=== PATIENT | female | born 1975 | race Two or more races ===

== ENCOUNTER 2022-04-25 19:46 | Emergency (ER) | payer MEDICAID, SELFPAY ==
[2022-04-25 19:48] VITALS: BP 125/81; PULSE 98; RESP 20; TEMP 36.8; O2SAT 99; BMI 30.2
--- NOTE | 2022-04-25 19:51 | ED_ITS ---
HPI - Allergic Reaction General Chief complaint: Allergic Reaction <Kandace Whelan MD - Last Filed: 04/25/22 19:53> Stated complaint: Allergic reaction, used EpiPen <Kandace Whelan MD - Last Filed: 04/25/22 19:53> Time Seen by Provider: 04/25/22 20:29 <Kandace Whelan MD - Last Filed: 04/25/22 19:53> Source: patient <Crispin Christensen MD - Last Filed: 04/26/22 00:38> Mode of arrival: ambulatory <Crispin Christensen MD - Last Filed: 04/26/22 00:38> Limitations: no limitations <Crispin Christensen MD - Last Filed: 04/26/22 00:38> History of Present Illness HPI narrative: Patient has history of chronic spontaneous urticaria on my the Xolair injections. Patient more from [place] received her last injection in 01/29 and unable to get injection in last 2 months come without a clear rash for last few days called her allergic specialist was started on prednisone feels short of breath earlier felt throat swelling use her EpiPen. When patient arrived patient was speaking full sentences no significant stridor or shortness of breath noticed no significant hives notice in that readmission received steroids, Benadryl and Pepcid <Crispin Christensen MD - Last Filed: 04/26/22 00:38> Related Data Allergies/adverse reactions: Allergies Allergy/AdvReac Type Severity Reaction Status Date / Time penicillin V Allergy Unknown Hives Verified 04/25/22 19:51 Penicillins [PENICILLINS] Allergy Unknown HIVES Verified 04/25/22 19:51 <Kandace Whelan MD - Last Filed: 04/25/22 19:53> Review of Systems Review of Systems: Yes all other systems are reviewed and are negative <Crispin Christensen MD - Last Filed: 04/26/22 00:38> FOR[facility]LY [facility] Past Medical History Medical History: Medical History (Updated 04/26/22 @ 00:01 by Danielle Powell) Chronic urticaria <Kandace Whelan MD - Last Filed: 04/25/22 19:53> Social History Social History: Social History Alcohol intake: never Smoked in Last 30 Days: Yes Use of substances other than those prescribed or required for medical reasons: Yes Substance Use Type: Marijuana Substance Use Frequency: Daily Advance Directives: No Patient : No <Kandace Whelan MD - Last Filed: 04/25/22 19:53> Physical Exam ED Vital Signs: Vital Signs - 24 hr 04/25/22 19:48 04/25/22 19:59 04/25/22 20:04 Temperature 98.2 F 97.9 F 97.9 F Pulse Rate 98 80 75 Respiratory Rate 20 34 H 19 Blood Pressure 125/81 123/76 132/76 Pulse Oximetry 99 100 99 Oxygen Delivery Method Room Air Room Air Room Air 04/25/22 20:26 Temperature Pulse Rate 88 Respiratory Rate 16 Blood Pressure Pulse Oximetry Oxygen Delivery Method BMI result Body Mass Index 30.2 <Kandace Whelan MD - Last Filed: 04/25/22 19:53> Vital Signs - 24 hr 04/25/22 19:48 04/25/22 19:59 04/25/22 20:04 Temperature 98.2 F 97.9 F 97.9 F Pulse Rate 98 80 75 Respiratory Rate 20 34 H 19 Blood Pressure 125/81 123/76 132/76 Pulse Oximetry 99 100 99 Oxygen Delivery Method Room Air Room Air Room Air 04/25/22 20:26 Temperature Pulse Rate 88 Respiratory Rate 16 Blood Pressure Pulse Oximetry Oxygen Delivery Method BMI result Body Mass Index 30.2 <Crispin Christensen MD - Last Filed: 04/26/22 00:38> Appearance: Alert. Oriented X3. No acute distress. Eyes: PERRLA, No Nystagmus ENT: Pharynx normal. Oral Mucosa moist lips and tongue normal no stridor uvula normal Neck: Normal inspection. Neck supple. CVS: Normal heart rate and rhythm. Pulses normal. Respiratory: No respiratory distress. Equal air entry bilateral, no wheezing/rales/rhonchi Abdomen: Soft and nontender. Bowel sounds are present, no mass palpable, no CVA tenderness Skin: Skin warm and dry. Normal skin color. Normal skin turgor. Diffuse mild hives on the trunk no facial hives Extremities: No lower extremity edema. No calf tenderness Neuro: Oriented X 3. No motor deficit. <Crispin Christensen MD - Last Filed: 04/26/22 00:38> Course Reevaluation(s) Reevaluation #1: 46-year-old female known history of environmental allergies moved from [place] to [place] been having hives because of feeling tightness in her chest and throat patient self injected with epinephrine in triage patient having wheezing but no upper respiratory stridor patient is a smoker with diffuse hives on chest patient was moved to room 4 in the emergency department immediately. <Kandace Whelan MD - Last Filed: 04/25/22 19:53> Time: 19:52 <Kandace Whelan MD - Last Filed: 04/25/22 19:53> Medications Administered Discontinued Medications Generic Name Dose Route Start Last Admin Trade Name Freq PRN Reason Stop Dose Admin Albuterol/Ipratropium 3 ml 04/25/22 19:51 04/25/22 20:26 Albuterol/Iprat 2.5/0.5mg 3 Ml Ampul.Neb INHALE 04/25/22 19:52 3 ml ONCE ONE Administration Diphenhydramine HCl 50 mg 04/25/22 19:50 04/25/22 19:58 Diphenhydramine Hcl 50 Mg/Ml Vial IVPUSH 04/25/22 19:51 50 mg ONCE ONE Administration Famotidine 20 mg 04/25/22 19:50 04/25/22 19:58 Famotidine/Pf 20 Mg/2 Ml Vial IVPUSH 04/25/22 19:51 20 mg ONCE ONE Administration Sodium Chloride 1,000 mls @ 999 mls/hr 04/25/22 19:50 04/25/22 19:58 Ns IV 04/25/22 20:50 999 mls/hr .Q1H1M ONE Administration Methylprednisolone Sodium Succinate 125 mg 04/25/22 19:50 04/25/22 19:58 Methylprednisolone Sod Succ 125 Mg/2 Ml Vial IVPUSH 04/25/22 19:51 125 mg ONCE ONE Administration <Kandace Whelan MD - Last Filed: 04/25/22 19:53> Medications Administered Discontinued Medications Generic Name Dose Route Start Last Admin Trade Name Freq PRN Reason Stop Dose Admin Albuterol/Ipratropium 3 ml 04/25/22 19:51 04/25/22 20:26 Albuterol/Iprat 2.5/0.5mg 3 Ml Ampul.Neb INHALE 04/25/22 19:52 3 ml ONCE ONE Administration Diphenhydramine HCl 50 mg 04/25/22 19:50 04/25/22 19:58 Diphenhydramine Hcl 50 Mg/Ml Vial IVPUSH 04/25/22 19:51 50 mg ONCE ONE Administration Famotidine 20 mg 04/25/22 19:50 04/25/22 19:58 Famotidine/Pf 20 Mg/2 Ml Vial IVPUSH 04/25/22 19:51 20 mg ONCE ONE Administration Sodium Chloride 1,000 mls @ 999 mls/hr 04/25/22 19:50 04/25/22 19:58 Ns IV 04/25/22 20:50 999 mls/hr .Q1H1M ONE Administration Methylprednisolone Sodium Succinate 125 mg 04/25/22 19:50 04/25/22 19:58 Methylprednisolone Sod Succ 125 Mg/2 Ml Vial IVPUSH 04/25/22 19:51 125 mg ONCE ONE Administration <Crispin Christensen MD - Last Filed: 04/26/22 00:38> MDM - Allergic Reaction MDM Narrative Medical decision making narrative: Patient has chronic spontaneous urticaria took epi injection came with similar episode today without any respiratory distress patient received multiple medications feeling much better with discharge discharge patient home <Crispin Christensen MD - Last Filed: 04/26/22 00:38> Discharge Plan Discharge Clinical Impression: Urticaria <Kandace Whelan MD - Last Filed: 04/25/22 19:53> Patient Disposition: Home, Self-Care <Kandace Whelan MD - Last Filed: 04/25/22 19:53> Instructions: Urticaria (ED) <Kandace Whelan MD - Last Filed: 04/25/22 19:53> Additional Instructions: Continue prednisone, Pred Benadryl as prescribed by your cs associate Report to the ER if recurrence of rash/shortness of breath/throat swelling <Kandace Whelan MD - Last Filed: 04/25/22 19:53> Interventions: ED Discharge Assessment Last Done: 04/25/22 21:38 <Kandace Whelan MD - Last Filed: 04/25/22 19:53> Discharge Date/Time: 04/25/22 21:39 <Kandace Whelan MD - Last Filed: 04/25/22 19:53>
--- NOTE | 2022-04-25 19:57 | PC.NURSE ---
Pt. on radiation monitor at this time
[2022-04-25] MEDS: methylPREDNISolone Sod Succ 125 MG/2 ML VIAL IVPUSH (19:58)
[2022-04-25] MEDS: 0.9 % Sodium Chloride 1,000 ML 999 ML IV (19:58)
[2022-04-25] MEDS: diphenhydrAMINE HCL 50 MG/ML VIAL IVPUSH (19:58)
[2022-04-25] MEDS: Famotidine/PF 20 MG/2 ML VIAL IVPUSH (19:58)
[2022-04-25 19:59] VITALS: BP 123/76; PULSE 80; RESP 34; TEMP 36.6; O2SAT 100
--- NOTE | 2022-04-25 20:00 | PC.NURSE ---
Meds. administered per MAR at this time
[2022-04-25 20:04] VITALS: BP 132/76; PULSE 75; RESP 19; TEMP 36.6; O2SAT 99
[2022-04-25 20:26] VITALS: PULSE 88; RESP 16; O2SAT 99
[2022-04-25] MEDS: Albuterol/Iprat 2.5/0.5MG 3 ML AMPUL.NEB INHALE (20:26)
== END 2022-04-25 21:39 | disposition home or self-care (01) ==
PROVIDERS: Emergency Provider Internal Medicine
DX: L50.9 Urticaria, unspecified (principal); F12.90 Cannabis use, unspecified, uncomplicated
CPT/HCPCS: 94640; 96374; 96375; 99284; 99285; J1200; J2930

== ENCOUNTER 2022-05-11 19:01 | Emergency (ER) | payer MEDICAID, SELFPAY ==
[2022-05-11 19:02] VITALS: BP 113/73; PULSE 86; RESP 16; TEMP 36.7; O2SAT 97; BMI 30.2
--- NOTE | 2022-05-11 19:02 | ED_ITS ---
HPI - General Adult General Chief complaint: Wound/Laceration <MARIAN Yan - Last Filed: 05/11/22 19:05> Stated complaint: L index finger laceration <MARIAN Yan - Last Filed: 05/11/22 19:05> Time Seen by Provider: 05/11/22 19:40 <MARIAN Yan - Last Filed: 05/11/22 19:05> Source: patient <MARIAN Yan Last Filed: 05/11/22 19:05> Mode of arrival: ambulatory <MARIAN Yan - Last Filed: 05/11/22 19:05> Limitations: no limitations <MARIAN Yan Last Filed: 05/11/22 19:05> History of Present Illness HPI narrative: 46-year-old female no significant medical history presents to the emergency department with cut to left index finger, lateral aspect, patient tells me she was trying to get the pit out of an avocado and accidentally cut her left index finger.? Patient tells me the site is throbbing however no numbness or tingling.? Patient up-to-date on tetanus shot.? Patient right-hand dominant.? Not on blood thinners. <MARIAN Vang Last Filed: 05/11/22 20:22> Related Data Allergies/adverse reactions: Allergies Allergy/AdvReac Type Severity Reaction Status Date / Time penicillin V Allergy Unknown Hives Verified 04/25/22 19:51 Penicillins [PENICILLINS] Allergy Unknown HIVES Verified 04/25/22 19:51 <MARIAN Yan - Last Filed: 05/11/22 19:05> Review of Systems Review of Systems: Constitutional : No Fever, No Chills, Cardiovascular : No Chest Pain, No SOB Respiratory : No Dyspnea Gastrointestinal : No abdominal pain Musculoskeletal : No Joint Swelling Skin : No rash, positive skin laceration Neuro : No Weakness, No Numbness Psych : No SI/HI ? Yes all other systems are reviewed and are negative <MARIAN Vang Last Filed: 05/11/22 20:22> PMFSH Past Medical History Attestation statement: The following information was validated with the patient. <MARIAN Vang Last Filed: 05/11/22 20:22> Source: old records reviewed and nursing notes reviewed <MARIAN Vang - Last Filed: 05/11/22 20:22> Medical History: Medical History Chronic urticaria <MARIAN Yan - Last Filed: 05/11/22 19:05> Social History Social History: Social History Alcohol intake: never Substance Use Type: Marijuana Advance Directives: No Advance Directives Information Provided: No <MARIAN Yan - Last Filed: 05/11/22 19:05> Physical Exam ED Vital Signs: Vital Signs - 24 hr 05/11/22 19:02 Temperature 98.1 F Pulse Rate 86 Respiratory Rate 16 Blood Pressure 113/73 Pulse Oximetry 97 Oxygen Delivery Method Room Air BMI result Body Mass Index 30.2 <MARIAN Yan - Last Filed: 05/11/22 19:05> Vital Signs - 24 hr 05/11/22 19:02 Temperature 98.1 F Pulse Rate 86 Respiratory Rate 16 Blood Pressure 113/73 Pulse Oximetry 97 Oxygen Delivery Method Room Air BMI result Body Mass Index 30.2 vss <MARIAN Vang - Last Filed: 05/11/22 20:22> Appearance: Alert.? Oriented X3.? No acute distress.? Head:? Normocephalic, atraumatic, no step-offs or deformities Eyes: Pupils equal, round and reactive to light.? Neck: Normal inspection.? Neck supple.? CVS: Normal heart rate and rhythm.? Pulses normal.? Respiratory: No respiratory distress.? Breath sounds normal.? Skin: Skin warm and dry.? Normal skin color.? Normal skin turgor.?+ small superficial laceration to left lateral aspect of index finger about 1 cm long, no visible foreign bodies, involves only the epidermis. Extremities: No lower extremity edema.? No calf ttp.? 5/5 strength to bilateral upper and lower extremities Neuro: Oriented X 3.? No motor deficit.? No sensory deficit. CN 2-12 intact <MARIAN Vang - Last Filed: 05/11/22 20:22> Course Course Course Narrative: RME performed by Barbara Flores PA-C. Patient is a 46 year old female presenting to the emergency department with a left index finger laceration. Patient placed back in the waiting room pending bed availability. <MARIAN Yan Last Filed: 05/11/22 19:05> Reevaluation(s) Reevaluation #1: Area successfully closed with Dermabond.? Advised patient to return with any new or worsening symptoms.? Educated on worrisome signs and symptoms and when to return.? At this time I feel comfortable discharge home with prompt PCP follow-up.? No need for antibiotics at this time as patient is not immunocompromised, not a diabetic <MARIAN Vang Last Filed: 05/11/22 20:22> Time: 19:55 <MARIAN Vang Last Filed: 05/11/22 20:22> Medical Decision Making MDM Narrative Medical decision making narrative: 1952 46-year-old female presents to laceration to left index finger status post pinning avocado.? Up-to-date on tetanus shot.? Right-hand dominant.? Denies numbness and tingling. Physical exam w/ small superficial laceration to left lateral aspect of index finger about 1 cm long, no visible foreign bodies, involves only the epidermis. Unlikely ligament or tendon injury.? Likely simple superficial laceration. Plan to clean area and glue with Dermabond. <MARIAN Vang Last Filed: 05/11/22 20:22> Medical Records Medical records reviewed: Yes I reviewed the patient's medical records. <MARIAN Vang Last Filed: 05/11/22 20:22> Lab Data Lab results reviewed: Yes I reviewed the patient's lab results. <MARIAN Vang Last Filed: 05/11/22 20:22> Discharge Plan Discharge Clinical Impression: Laceration <MARIAN Yan Last Filed: 05/11/22 19:05> Patient Disposition: Home, Self-Care <MARIAN Yan Last Filed: 05/11/22 19:05> Additional Instructions: Take your medications as prescribed. If you were prescribed antibiotics today, it is important that you take your medication to their entirety, do not skip any doses, do not finish them early. Follow-up with your primary care provider this week. Return to the emergency department with new or worsening symptoms. Such as fevers, chills, chest pain, shortness of breath, nausea, vomiting, dizziness, headache, vision changes, lethargy In case of emergency call 911 Please allow the Dermabond to fall off on its own, do not pick at the Dermabond. Return if site becomes red, hot, swollen or appears worse. Or if you develop fevers and chills <MARIAN Yan - Last Filed: 05/11/22 19:05> Referrals: [facility] [Primary Care Provider] - 2 days <MARIAN Yan - Last Filed: 05/11/22 19:05>
--- NOTE | 2022-05-11 19:51 | ED_ITS ---
HPI - Wound/Laceration General Chief Complaint: Wound/Laceration Stated Complaint: L index finger laceration Time Seen by Provider: 05/11/22 19:40 Source: patient Mode of arrival: ambulatory Limitations: no limitations History of Present Illness HPI narrative: 46-year-old female no significant medical history presents to the emergency department with cut to left index finger, lateral aspect, patient tells me she was trying to get the pit out of an avocado and accidentally cut her left index finger. Patient tells me the site is throbbing however no numbness or tingling. Patient up-to-date on tetanus shot. Patient right-hand dominant. Not on blood thinners. Related Data Allergies Allergy/AdvReac Type Severity Reaction Status Date / Time penicillin V Allergy Unknown Hives Verified 04/25/22 19:51 Penicillins [PENICILLINS] Allergy Unknown HIVES Verified 04/25/22 19:51 Review of Systems Review of Systems: Constitutional : No Fever, No Chills, Cardiovascular : No Chest Pain, No SOB Respiratory : No Dyspnea Gastrointestinal : No abdominal pain Musculoskeletal : No Joint Swelling Skin : No rash, positive skin laceration Neuro : No Weakness, No Numbness Psych : No SI/HI Yes all other systems are reviewed and are negative [facility] Past Medical History Attestation statement: The following information was validated with the patient. Source: old records reviewed and nursing notes reviewed Medical History Chronic urticaria Social History Social History Alcohol intake: never Substance Use Type: Marijuana Advance Directives: No Advance Directives Information Provided: No Physical Exam Vital Signs: Vital Signs: Last Vital Signs Temp 98.1 F 05/11/22 19:02 Pulse 86 05/11/22 19:02 Resp 16 05/11/22 19:02 BP 113/73 05/11/22 19:02 Pulse Ox 97 05/11/22 19:02 O2 Del Method 05/11/22 19:02 BMI result Body Mass Index 30.2 vss Appearance: Alert.? Oriented X3.? No acute distress.? Head: Normocephalic, atraumatic, no step-offs or deformities Eyes: Pupils equal, round and reactive to light.? Neck: Normal inspection.? Neck supple.? CVS: Normal heart rate and rhythm.? Pulses normal.? Respiratory: No respiratory distress.? Breath sounds normal.? Skin: Skin warm and dry.? Normal skin color.? Normal skin turgor.?+ small superficial laceration to left lateral aspect of index finger about 1 cm long, no visible foreign bodies, involves only the epidermis. Extremities: No lower extremity edema.? No calf ttp. 5/5 strength to bilateral upper and lower extremities Neuro: Oriented X 3.? No motor deficit.? No sensory deficit. CN 2-12 intact Course Reevaluation(s) Reevaluation #1: Area successfully closed with Dermabond. Advised patient to return with any new or worsening symptoms. Educated on worrisome signs and symptoms and when to return. At this time I feel comfortable discharge home with prompt PCP follow- up. No need for antibiotics at this time as patient is not immunocompromised, not a diabetic Time: 19:55 MDM - Wound/Laceration MDM Narrative Medical decision making narrative: 1952 46-year-old female presents to laceration to left index finger status post pinning avocado. Up-to-date on tetanus shot. Right-hand dominant. Denies numbness and tingling. Physical exam w/ small superficial laceration to left lateral aspect of index finger about 1 cm long, no visible foreign bodies, involves only the epidermis. Unlikely ligament or tendon injury. Likely simple superficial laceration. Plan to clean area and glue with Dermabond. Medical Records Attestation: I reviewed the patient's medical records. Lab Data Attestation: I reviewed the patient's lab results. Critical Care Time Critical Care Time Critical Care Time: No Discharge Plan Discharge Clinical Impression: Laceration Patient Disposition: Home, Self-Care Additional Instructions: Take your medications as prescribed. If you were prescribed antibiotics today, it is important that you take your medication to their entirety, do not skip any doses, do not finish them early. Follow-up with your primary care provider this week. Return to the emergency department with new or worsening symptoms. Such as fevers, chills, chest pain, shortness of breath, nausea, vomiting, dizziness, headache, vision changes, lethargy In case of emergency call 911 Please allow the Dermabond to fall off on its own, do not pick at the Dermabond. Return if site becomes red, hot, swollen or appears worse. Or if you develop fevers and chills [facility]
== END 2022-05-11 20:39 | disposition home or self-care (01) ==
PROVIDERS: Emergency Provider Emergency Medicine Emergency Medical Services
DX: S61.211A Laceration without foreign body of left index finger without damage to nail, initial encounter (principal); W26.0XXA Contact with knife, initial encounter; Y93.9 Activity, unspecified; Y92.9 Unspecified place or not applicable; Y99.9 Unspecified external cause status
CPT/HCPCS: 12001; 99282; 99284

== ENCOUNTER 2022-08-16 07:46 | Emergency (ER) | payer MEDICAID, SELFPAY ==
[2022-08-16 07:50] VITALS: BP 142/82; PULSE 120; RESP 18; TEMP 36.6; O2SAT 98; BMI 29.9
--- NOTE | 2022-08-16 08:21 | ED_ITS ---
HPI - Skin/Abscess/Foreign Bdy General Chief complaint: Skin/Abscess/Foreign Body Stated complaint: Allergic reaction/Diff breathing Time Seen by Provider: 08/16/22 07:59 Source: patient Mode of arrival: ambulatory Limitations: no limitations History of Present Illness HPI narrative: Pt is a 46 y/o female with history of current problem and depression, cc idiopathic hives. She has had head-to-toe uticaria with some chest tightness, mild throat discomfort, and nausea since 99. She took her inhaler, certrazine, loratidine, benadryl and singulair with no change. She denies sob, fever, cough, abd pain, vomiting, diarrhea, or edema. Pt states this has been going on for several years and has been treated successfully with Xolair injections in [place]. After moving up from [place] she was seeing an certified flight instructor in [place] who continued the injections but the office closed abruptly and her last dose was in May. She states she was fine until July and has had trouble getting to a provider who could give her injections since. She was prescribed prednisone 20mg QD for 5 days from the [facility] and her last dose was on the and she was unable to get more from them. She i s supposed to be following up with an certified flight instructor at [facility]. complaint: rash Onset (ago): hour(s) (7) Location: generalized Severity: similar to previous episodes Quality: burning and pruritic Pain Consistency: constant Relieving factors: none Exacerbating factors: none Associated symptoms: itching and nausea Treatments prior to arrival: Benadryl and other (claritin, certrazine, singulair) Related Data Previous Rx's Medication Instructions Recorded famotidine 40 mg tablet 40 mg PO DAILY #30 tabs 08/16/22 prednisone 20 mg tablet 60 mg PO DAILY #15 tabs 08/16/22 Allergies Allergy/AdvReac Type Severity Reaction Status Date / Time penicillin V Allergy Unknown Hives Verified 04/25/22 19:51 Penicillins [PENICILLINS] Allergy Unknown HIVES Verified 04/25/22 19:51 Review of Systems Review of Systems: Yes all other systems are reviewed and are negative Constitutional: Constitutional: Reports no additional constitutional complaints, Denies body ache(s), Denies chills, Denies fever(s), Denies headache(s) and Denies weakness Eyes: Eyes: Reports no additional eye complaints and Denies change in vision ENT: Reports system reviewed and no additional complaints, except as documented, Denies change in voice, Denies dysphagia, Denies dizziness, Denies headache(s), Denies hoarseness, Denies lip swelling, Denies nasal congestion, Denies nasal discharge, Denies neck pain, Denies odynophagia, Denies throat swelling and Denies tongue swelling Cardiovascular: Cardiovascular: Reports no additional cardiovascular complaints, Denies chest pain, Denies leg edema and Denies dyspnea Respiratory: Respiratory: Reports no additional respiratory complaints, Denies cough, Denies dyspnea and Reports wheezing (clears with purposeful cough) Gastrointestinal: Gastrointestinal: Reports no additional gastrointestinal complaints, Denies abdominal pain, Denies dysphagia, Denies diarrhea, Reports nausea, Denies odynophagia and Denies vomiting Genitourinary: Genitourinary: Reports no additional female genitourinary complaints and Denies urinary incontinence Musculoskeletal: Musculoskeletal: Reports no additional musculoskeletal complaints, Denies back pain, Denies arthralgias, Denies joint swelling, Denies neck pain, Denies numbness and Denies tingling Integumentary/Breasts: Skin/Breast: Reports system reviewed and no additional complaints, except as docu and Reports rash Neurologic: Reports system reviewed and no additional complaints, except as documented, Denies Abnormal speech present, Denies dizziness, Denies headache(s), Denies numbness, Denies tingling and Denies weakness Psychiatric: Psychiatric: Denies suicidal ideation Allergic/Immunologic: Allergic/Immunologic: Denies lip swelling, Denies throat swelling, Denies tongue swelling and Reports wheezing (clears with purposeful cough) [facility] Past Medical History Attestation statement: The following information was validated with the patient. Source: old records reviewed and nursing notes reviewed Medical History Chronic urticaria Social History Social History Alcohol intake: never Substance Use Type: Marijuana Advance Directives: No Advance Directives Information Provided: No Physical Exam Vital Signs: Vital Signs: Last Vital Signs Temp 98 F 08/16/22 07:50 Pulse 98 03/09/23 10:17 Resp 16 08/16/22 10:17 BP 134/69 08/16/22 10:17 Pulse Ox 96 08/16/22 10:17 O2 Del Method 08/16/22 10:17 BMI result Body Mass Index 29.9 Const: General: cooperative, healthy appearing, comfortable, no acute distress and anxious Orientation/consciousness: patient oriented x3 Limitations: no limitations HEENT: Head: Yes normal to inspection Ears: hearing grossly normal bilaterally General nose exam: Normal external nose present Face and sinus: Yes normal facial exam Mouth: Normal oral and palatal mucosa present, lip normal and tongue normal Throat: Yes posterior oropharynx normal, Yes tonsils normal and Yes uvula midline Eyes: General: appearance normal, both eyes and all related structures Pupils: Equal, round and reactive pupils present Neck: Neck: Yes normal visual inspection, Yes full ROM and Yes trachea midline Chest: Chest palpation & inspection: normal inspection of the chest Resp: Effort & Inspection: normal respiratory effort Auscultation: clear to auscultation bilaterally and wheezes scattered wheezes (clears with purposeful cough) Cardio: Jugular venous distension: no JVD Rate: regular rate Rhythm: regular rhythm Peripheral pulses: Peripheral pulses 2+ throughout GI: Palpation (GI): Soft to palpation and nontender Auscultation: normal bowel sounds Back/Spine/Pelvis: Thoracic/Lumbar Spine: thoracic and lumbar spine normal to inspection Skin: Other: Diffuse uticaria from scalp to base of feet Neuro: General: patient oriented x3, no focal motor deficits and normal sensation to monofilament Cranial nerves: Yes Equal, round and reactive pupils present Cognition (Neuro): normal cognition Speech: No Abnormal speech present Gait exam (Neuro): Normal gait present Motor exam (neuro): 5/5 motor strength present throughout Extrem: General: Yes normal to inspection Psych: Appearance: grossly normal Affect: Anxious affect present Attitude: cooperative Thought process: Normal thought process present Course Course Course Narrative: Patient with mild urticaria still seen. Overall well-appearing. Patient will be discharged home with prednisone course, famotidine. Patient reports she has sufficient Benadryl, loratadine at home. Recommend she follow up with primary care and certified flight instructor. Reviewed worrisome signs and symptoms of when to return to the emergency room. Comfortable plan for discharge home. Patient reports she has EpiPen at home which she can use as needed. Medications Administered Discontinued Medications Generic Name Dose Route Start Last Admin Trade Name Efar PRN Reason Stop Dose Admin Diphenhydramine HCl 50 mg 08/16/22 08:19 08/16/22 08:30 Diphenhydramine Hcl 25 Mg Capsule PO 08/16/22 08:20 50 mg ONCE ONE Administration Famotidine 40 mg 08/16/22 08:19 08/16/22 08:30 Famotidine 20 Mg Tablet PO 08/16/22 08:20 40 mg ONCE ONE Administration Methylprednisolone Sodium Succinate 125 mg 08/16/22 08:19 08/16/22 08:30 Methylprednisolone Sod Succ 125 Mg/2 Ml Vial IM 08/16/22 08:20 125 mg STAT STA Administration Ondansetron HCl 4 mg 08/16/22 09:49 08/16/22 09:52 Ondansetron Odt 4 Mg Tab.Rapdis TRANSLINGU 08/16/22 09:50 4 mg ONCE ONE Administration Medical Decision Making Medical Decision Making MDM Narrative: This is a 46 y/o female patient who presents with symptoms consistent with acute hypersensitivity reaction, likely acute allergic reaction. Presentation not consistent with acute anaphylaxis (lack of pulmonary, dermatologic, cardiovascular or GI symptoms, lack of hypotension or exposure to known allergen), angioedema, serum sickness (no recent drug exposure, lacks fevers, arthralgias), ingestion of preformed toxin. No evidence of airway compromise or shock at this time. Plan to treat for an allergic reaction with H1/H2 blockers, steroids. No indication for epinephrine at this time. Given lack of respiratory symptoms, no indication for EpiPen Rx. Plan: H1/H2 blockers, steroids, close hemodynamic monitoring, serial reassessment Differential Diagnosis Differential Diagnoses: The differential diagnosis associated with the presentation includes allergic reaction Discharge Plan Discharge Clinical Impression: Urticaria Patient Disposition: Home, Self-Care Instructions: Urticaria (ED) Additional Instructions: Establish an certified flight instructor, continue to follow-up with her primary care Continue to take Benadryl and Claritin as needed Prescriptions: New prednisone 20 mg tablet 60 mg PO DAILY Qty: 15 0RF famotidine 40 mg tablet 40 mg PO DAILY Qty: 30 0RF Referrals: [facility] [Primary Care Provider] - 1 week Interventions: ED Discharge Assessment Last Done: 08/16/22 11:36 Discharge Date/Time: 08/16/22 11:37
[2022-08-16] MEDS: diphenhydrAMINE HCL 25 MG CAPSULE 50 MG PO (08:30)
[2022-08-16] MEDS: methylPREDNISolone Sod Succ 125 MG/2 ML VIAL IM (08:30)
[2022-08-16] MEDS: Famotidine 20 MG TABLET 40 MG PO (08:30)
[2022-08-16] MEDS: Ondansetron ODT 4 MG TAB.RAPDIS TRANSLINGU (09:52)
[2022-08-16 10:17] VITALS: BP 134/69; PULSE 98; RESP 16; O2SAT 96
== END 2022-08-16 11:37 | disposition home or self-care (01) ==
PROVIDERS: Emergency Provider Emergency Medicine Emergency Medical Services
DX: L50.0 Allergic urticaria (principal); R07.89 Other chest pain
CPT/HCPCS: 96372; 99284; J2930

== ENCOUNTER 2023-01-31 08:42 | Outpatient (REF) | payer MEDICAID, SELFPAY ==
[2023-01-31 11:17] LABS: MANUAL DIFF FLAG NO
[2023-01-31 11:43] LABS: Basophils Percent Auto 0.3 % (0-2); Eosinophils Absolute Auto 0.1 X10*3/uL (0.0-0.4); Eosinophils Percent Auto 1.6 % (0-4); Hematocrit 42.6 % (37.0-47.0); Hemoglobin 13.8 g/dl (12.0-16.0); Imm Gran Abs Auto 0.02 X10*3/uL (0.00-0.03); Imm Gran Pct Auto 0.3 % (0.0-0.4); Lymphocytes Absolute Auto 1.4 X10*3/uL (1.2-4.9); Lymphocytes Percent Auto 21.4 % (20-40); Mean Corpuscular HGB Conc 32.4 g/dl (31.0-35.0); Mean Corpuscular Hemoglobin 29.4 pg (27.0-33.0); Mean Corpuscular Volume 90.6 fL (80.0-98.0); Mean Platelet Volume 11.7 fL (9.4-12.3); Monocytes Absolute Auto 0.5 X10*3/uL (0.1-1.2); Monocytes Percent Auto 6.7 % (2-11); Neutrophils Absolute Auto 4.7 x10*3/uL (2.0-8.3); Neutrophils Percent Auto 69.7 % (45-73); Platelet Count 267 X10*3/uL (160-400); Red Cell Distribution Width 13.7 % (11.0-16.0); White Blood Count 6.7 X10*3/uL (4.8-10.8)
[2023-01-31 12:01] LABS: Estimated Average Glucose 94 mg/dL; Hemoglobin A1C 107.2555 umol/L; Hemoglobin A1c % 4.9 % (<6.0)
[2023-01-31 12:11] LABS: ~HepC Num1 0.08 S/CO (0.00-0.79); ~Hepatitis C Antibody Nonreactive (Nonreactive)
[2023-01-31 12:13] LABS: HIV AB/AG Nonreactive (Nonreactive); HIV Num 1 0.05 S/CO (0.00-0.99)
[2023-01-31 12:27] LABS: Vitamin B12 816 pg/mL (200-900)
[2023-01-31 12:33] LABS: Alanine Aminotransferase 10 U/L (0-31); Albumin Level 3.6 g/dL (3.5-5.0); Alkaline Phosphatase 70 U/L (39-117); Anion Gap 10 (12-20); Aspartate Amino Transferase 15 U/L (5-31); Bilirubin Direct 0.1 mg/dL (0.0-0.5); Bilirubin Total 0.4 mg/dL (0.0-1.0); Blood Urea Nitrogen 11 mg/dL (9-16); Calcium 9.1 mg/dL (8.4-10.2); Carbon Dioxide 26 mmol/L (22-29); Chloride 108 mmol/L (96-108); Cholesterol 150 mg/dL (<200); Estimated Glomerular Filt Rate > 60; Glucose Random 91 mg/dL (60-115); HDL Cholesterol 49 mg/dL (>40); LDL Cholesterol Calculated 86 mg/dL (<100); Potassium 3.8 mmol/L (3.3-5.1); Sodium 140 mmol/L (135-145); Total Protein 6.4 g/dL (6.5-8.0); Triglycerides 79 mg/dL (<150); Vitamin D 25-OH Total 28.4 ng/mL (>30)
[2023-01-31 14:11] LABS: CT PCR NOT DETECTED (Not Detect.); NG PCR NOT DETECTED (Not Detect.)
[2023-02-01 03:50] LABS: Syphilis Screen Nonreactive (Nonreactive)
[2023-02-04 23:38] LABS: Methylmalonic Acid 77 nmol/L (87-318)
== END 2023-01-31 08:43 | disposition home or self-care (01) ==
LOC: HO.HHCL 08:42
PROVIDERS: Visit Provider Internal Medicine
DX: Z00.00 Encounter for general adult medical examination without abnormal findings (principal); Z72.89 Other problems related to lifestyle
CPT/HCPCS: 0353U; 80048; 80061; 80076; 82306; 82607; 83036; 83921; 85025; 86780; 86803; 87389

== ENCOUNTER 2023-02-05 12:02 | Outpatient (REF) | payer MEDICAID, SELFPAY ==
[2023-02-07 17:07] LABS: Homocysteine 6.7 umol/L (<10.4)
== END 2023-02-05 12:03 | disposition home or self-care (01) ==
LOC: HO.LAB 12:02
PROVIDERS: PCP Internal Medicine; Visit Provider Internal Medicine
DX: Z00.00 Encounter for general adult medical examination without abnormal findings (principal); M47.26 Other spondylosis with radiculopathy, lumbar region; M25.562 Pain in left knee; M51.36 Other intervertebral disc degeneration, lumbar region; Z79.899 Other long term (current) drug therapy
CPT/HCPCS: 36415; 83090; 99204

== ENCOUNTER 2023-02-05 13:05 | Outpatient (AMB) | payer MEDICAID, SELFPAY ==
--- NOTE | 2023-02-05 13:26 | MHC.OFFVIS ---
Intake Vital Signs 02/05/23 13:43 Height 5 ft 5 in Weight 198 lb BMI 32.9 BP 117/57 L Blood Pressure Location Lt brachial Position Sitting Respiration 14 Pulse 60 Pulse Source Pulse Oximeter Pulse Oximetry (%) 100 Oxygen Delivery Method Room Air Intake Visit Reasons: Lumbar spondylosis Intake Note: [facility] tried to get Pt to do PT, she refused, stating too much pain . Pt states she had an xray of her lower back at [facility] last year. Previously seen by pain management in [place], [facility] and [facility] Allergies Penicillins [PENICILLINS] Allergy (Unknown, Verified 02/05/23 13:44) HIVES Medication List - Last Reconciled 02/05/23 by Barbara Magallon, PEPE acetaminophen ER 650 mg PO Q12H PRN albuterol sulfate 90 mcg/actuation 2 puffs inhalation Q6H PRN cetirizine (Zyrtec) 10 mg PO DAILY PRN doxepin 10 mg PO BEDTIME hydroxyzine HCl 25 mg PO QID PRN ibuprofen 800 mg PO Q8H loratadine (Allergy Relief (loratadine)) 10 mg PO DAILY montelukast (Singulair) 10 mg PO BEDTIME omalizumab (Xolair) 300 mg subcut Q4W ondansetron HCl 4 mg PO Q8H PRN HPI Lumbar spondylosis HPI Details Patient is a pleasant 47 years old female with prior lumbar spondylosis, multiple surgeries for left wrist, chronic lower back pain, left knee pain, asthma, lumbar radiculopathy presents today for initial evaluation for low back pain. Denies any recent or past injury, trauma, or injury. Patient was followed by [facility] prior to moving back to [place] and was referred to [facility] and [facility] for treatments. Patient has declined injections for both pain clinics as she has had multiple back injections in [place] which did not improve her pain or functioning and were very painful. She sees [facility] for left knee pain. Her back pain is axial and also radiates into her bilateral lateral hips and into lower legs anteriorly and posteriorly. SLR testing is positive only on the right. Patient also has significant tenderness in the projection of both sacroiliac joint areas. Reports numbness and tingling with prolonged sitting and standing in her lower legs and feet. Chronic pain negatively affects her daily activities, functioning, mobility, mood, sleep and social interactions. Denies any fever, weight loss, abdominal pain, foot drop, bladder or bowel incontinence or saddle anesthesia. Reports lower extremity intermittent weakness with severe pain in her back or left knee. Patient reports she was sent to another physical therapy by [facility] recently but cannot pursue it at this time due to significant lower back pain especially with bending. She reports completing PT, chiropractic adjustments and massages in [place] with minimal and short term improvements. Location Low back pain, at times radiates to bilateral hips Duration Chronic pain for 4 years Characteristics of symptom or complaint Aching, stabbing, sharp, throbbing, aching Aggravating or associated factors Movements, bending, laying flat, walking, sitting, standing Relieving factors Tylenol, Ibuprofen, tried gabapentin and baclofen Treatment PT, chiropractic therapy, massages, multiple back injections in [facility] Medical History (Updated 02/05/23 @ 14:39 by JOSELINE Jones) Chronic urticaria Lumbar back pain with radiculopathy affecting right lower extremity Social History Alcohol intake: never Substance Use Type: Marijuana Review of Systems Const All systems reviewed & are unremarkable except as noted in HPI and below Physical Exam Vital Signs: Last Vital Signs Pulse 60 02/05/23 13:43 Resp 14 02/05/23 13:43 BP 117/57 L 02/05/23 13:43 Pulse Ox 100 02/05/23 13:43 Oxygen Delivery Method Room Air 02/05/23 13:43 BMI result Body Mass Index 32.9 General: Appears afebrile. Alert and oriented. Mood and affect appropriate. Follows and participates in conversation appropriately. Respiratory effort is unlabored. Able to transition from sit to stand unassisted. General: Yes no CVA tenderness Back/Spine/Pelvis Other: Patient is able to walk and stand on heels and tip toes with moderate difficulty standing on heel on right otherwise demonstrating good motor tone. Antalgic gait, no limping. Can flex forward to 65-75 degrees and extend to 5-10 degrees before experiencing lumbar pain. Pain significantly increases with bending. Demonstrates 5/5 strength of quadriceps bilaterally as well as flexion/dorsiflexion of bilateral feet against resistance. 2+ pedal pulses bilaterally. Seated straight leg rise with dorsiflexion positive on the right. +2 patellar and achilles reflexes bilaterally. Facet loading test positive bilaterally. Dimitry sign, Anthony?s, Gaenslen, Pelvic compression and Stinchfield tests are positive bilaterally. No groin pain with I/E hip rotations. Valsalva maneuver negative. Back: no CVA tenderness and back tenderness Cervical Spine: cervical ROM normal and No Cervical spine tenderness Thoracic/Lumbar Spine: thoracic and lumbar spine normal to inspection, Thoracic/lumbar spine scar(s), Lasegue's sign positive on the right and localized, pain with thoraco-lumbar ROM, paraspinal muscle tenderness, thoraco-lumbar ROM limited, No thoracic spinal tenderness and lumbar spinal tenderness Pelvis: buttock tenderness bilaterally Sacroiliac joints: bilaterally tender to palpation Extrem General: Yes capillary refill normal, Yes no clubbing, cyanosis or edema and Yes no calf tenderness Left lower extremity: knee (Limited ROM due to pain. ) Details: tenderness Location: of the patella, of the medial joint line and of the lateral joint line and crepitus; no swelling, no ecchymosis and no unusual warmth Assessment & Plan Assessment & Plan (1) Lumbar back pain with radiculopathy affecting right lower extremity: Code(s): M54.16 - Radiculopathy, lumbar region (2) Lumbar spondylosis: Code(s): M47.816 - Spondylosis without myelopathy or radiculopathy, lumbar region (3) Left knee pain: Code(s): M25.562 - Pain in left knee (4) Discogenic low back pain: Code(s): M51.36 - Other intervertebral disc degeneration, lumbar region Plan RIVAS of the lumbar spine to assess for neural integrity and compression. We will send requests for her most recent lumbar spine xray, past procedures and injections to [facility] who has patient's [facility] records and [facility]. Patient presents with axial low back pain with facetogenic, radicular, SIJ and discogenic components. She has previously exhausted conservative measures. She is not interested in medical management. Reports gabapentin and baclofen in the past has been minimally effective. I have informed patient that our interventional treatments might involve diagnostic nerve blocks for her axial low back and SIJ pain generators for potential peripheral nerve stimulation with Sprint or RFA procedures. Will consider interventions targeted towards these pain generators based on the MRI results. Patient will return to the clinic to discuss results of the MRI findings when it is done and consider interventional therapy as indicated. Recommend daily physical activity as tolerated, weight loss, adequate hydration, acupuncture, aqua therapy and CBT therapy. Patient reports she will try Acupunt[facility] at [facility] walk in clinic. All questions and concerns have been answered and patient agreed with the plan. Follow up for MRI results and sooner if needed. Orders: Orders MR lumbar spine wo con Today M47.816 - Spondylosis without myelopathy or radiculopathy, lumbar region, M54.16 - Radiculopathy, lumbar region Medications: New lidocaine 5% Apply to affected areas up to 12 hours per day 2 patches topical DAILY 30 days 60 ea 2RF pain M25.562 - Pain in left knee, M47.816 - Spondylosis without myelopathy or radiculopathy, lumbar region, M54.16 - Radiculopathy, lumbar region Coding Level of Care Code New Pt Level 4 (53922) Diagnoses Lumbar back pain with radiculopathy affecting right lower extremity M54.16 Lumbar spondylosis M47.816 Left knee pain M25.562 Discogenic low back pain M51.36
[2023-02-05 13:43] VITALS: BP 117/57; PULSE 60; RESP 14; O2SAT 100; BMI 32.9
== END 2023-02-05 14:11 | disposition home or self-care (01) ==
PROVIDERS: PCP Internal Medicine; Visit Provider Nurse Practitioner Family
DX: M54.16 Radiculopathy, lumbar region (principal); M47.816 Spondylosis without myelopathy or radiculopathy, lumbar region; M25.562 Pain in left knee; M51.36 Other intervertebral disc degeneration, lumbar region
CPT/HCPCS: 99204

== ENCOUNTER 2023-05-30 13:45 | Outpatient (AMB) | payer MEDICAID, SELFPAY ==
--- NOTE | 2023-05-30 13:46 | MHC.OFFVIS ---
Intake Vital Signs 05/30/23 13:51 Height 5 ft 5 in Weight 195 lb BMI 32.4 BP 144/66 H Blood Pressure Location Lt brachial Position Sitting Respiration 16 Pulse 76 Pulse Source Pulse Oximeter Pulse Oximetry (%) 99 Oxygen Delivery Method Room Air Intake Visit Reasons: Follow Up/Increase Pain Intake Note: Patient comes in for increased back pain, She reports pain 9.5/10. Allergies Penicillins [PENICILLINS] Allergy (Unknown, Verified 02/05/23 13:44) HIVES HPI HPI Comments History of Present Illness Details Patient presents today for follow up for worsening low back pain. She has pending lumbar spine MRI on 06/05/23. Patient reports unbearable low back pain with radiation into her right lateral hip and into her RLE with numbness and tingling. She also reports bilateral knee pain, worse on left side in patellofemoral aspects. She sees provider at [facility] for this. Patient does not drive and reports walking to most of her destinations and at times takes public transportation. She rates her pain at 9.5/10. Pain is worse with walking, weight bearing, climbing or descending stairs, bending, squating, bending and cold weather changes. She takes Tylenol Arthritis, Ibuprofen 800 mg TID prn, lidocaine patches, and ice/heat therapies with continued symptoms. Denies any fever, bladder or bowel dysfunction, or saddle anesthesia. PRIOR: Patient is a pleasant 47 years old female with prior lumbar spondylosis, multiple surgeries for left wrist, chronic lower back pain, left knee pain, asthma, lumbar radiculopathy presents today for initial evaluation for low back pain. Denies any recent or past injury, trauma, or injury. Patient was followed by [facility] prior to moving back to [place] and was referred to [facility] and [facility] for treatments. Patient has declined injections for both pain clinics as she has had multiple back injections in [place] which did not improve her pain or functioning and were very painful. She sees [facility] for left knee pain. Her back pain is axial and also radiates into her bilateral lateral hips and into lower legs anteriorly and posteriorly. SLR testing is positive only on the right. Patient also has significant tenderness in the projection of both sacroiliac joint areas. Reports numbness and tingling with prolonged sitting and standing in her lower legs and feet. Chronic pain negatively affects her daily activities, functioning, mobility, mood, sleep and social interactions. Denies any fever, weight loss, abdominal pain, foot drop, bladder or bowel incontinence or saddle anesthesia. Reports lower extremity intermittent weakness with severe pain in her back or left knee. Patient reports she was sent to another physical therapy by [facility] recently but cannot pursue it at this time due to significant lower back pain especially with bending. She reports completing PT, chiropractic adjustments and massages in [place] with minimal and short term improvements. Location Low back pain, at times radiates to bilateral hips Duration Chronic pain for 4 years Characteristics of symptom or complaint Aching, stabbing, sharp, throbbing, aching Aggravating or associated factors Movements, bending, laying flat, walking, sitting, standing Relieving factors Tylenol, Ibuprofen, tried gabapentin and baclofen Treatment PT, chiropractic therapy, massages, multiple back injections in [facility] Medical History Lumbar back pain with radiculopathy affecting right lower extremity Chronic urticaria Social History Alcohol intake: never Substance Use Type: Marijuana Review of Systems Const All systems reviewed & are unremarkable except as noted in HPI and below Physical Exam Vital Signs: Last Vital Signs Pulse 76 05/30/23 13:51 Resp 16 05/30/23 13:51 BP 144/66 H 05/30/23 13:51 Pulse Ox 99 05/30/23 13:51 Oxygen Delivery Method Room Air 05/30/23 13:51 BMI result Body Mass Index 32.4 General: Appears afebrile. Alert and oriented. Mood and affect appropriate. Follows and participates in conversation appropriately. Respiratory effort is unlabored. No cough. No nasal discharge. Able to transition from sit to stand unassisted. General: Yes no CVA tenderness Back/Spine/Pelvis Other: Limited lumbar ROM due to pain. Antalgic gait, no limping. Can flex forward to 65-70 degrees and extend to 5-10 degrees before experiencing lumbar pain. Pain significantly increases with bending. Demonstrates 5/5 strength of quadriceps bilaterally as well as flexion/dorsiflexion of bilateral feet against resistance. 2+ pedal pulses bilaterally. Seated straight leg rise with dorsiflexion positive on the right. +2 patellar and achilles reflexes bilaterally. Facet loading test positive bilaterally. Dimitry sign, Anthony?s, Gaenslen, Pelvic compression and Stinchfield tests are positive bilaterally. No groin pain with I/E hip rotations. Valsalva maneuver negative. Mild TTP to right GTB. Back: no CVA tenderness and back tenderness Cervical Spine: cervical ROM normal and No Cervical spine tenderness Thoracic/Lumbar Spine: thoracic and lumbar spine normal to inspection, Thoracic/lumbar spine scar(s), Lasegue's sign positive on the right and localized, pain with thoraco-lumbar ROM, paraspinal muscle tenderness, thoraco-lumbar ROM limited, No thoracic spinal tenderness and lumbar spinal tenderness Pelvis: buttock tenderness bilaterally Sacroiliac joints: bilaterally tender to palpation Extrem General: Yes capillary refill normal, Yes no clubbing, cyanosis or edema and Yes no calf tenderness Right lower extremity: knee (Limited ROM due to pain. +Crepitus with flexion.) Details: normal to inspection, tenderness Location: of the patella and of the medial joint line, crepitus and warmth; no swelling and no ecchymosis Left lower extremity: knee (Limited ROM due to pain. ) Details: normal to inspection, tenderness Location: of the patella, of the medial joint line and of the lateral joint line and crepitus; no swelling, no ecchymosis, no deformity and no unusual warmth Results Reviewed Results Reviewed: No imaging reports are available for review today. Assessment & Plan Assessment & Plan (1) Discogenic low back pain: Code(s): M51.36 - Other intervertebral disc degeneration, lumbar region (2) Lumbar spondylosis: Code(s): M47.816 - Spondylosis without myelopathy or radiculopathy, lumbar region (3) Lumbar back pain with radiculopathy affecting right lower extremity: Code(s): M54.16 - Radiculopathy, lumbar region (4) Left knee pain: Code(s): M25.562 - Pain in left knee Plan Proceed with MRI of the lumbar spine to assess for neural integrity and compression as scheduled for 06/05/23. Will consider interventions targeted towards axial low back, radicular and SIJ pain generators based on the MRI results. Patient will return to the clinic to discuss results of the MRI findings when it is done and consider interventional therapy as indicated. Short script of tramadol provided for acute on chronic back pain with radicular components. Patient declined oral steroid taper. Follow up with [facility] for left knee pain as planned. Continue ice pack, elevation, NSAIDs, lidocaine patches. Recommend daily physical activity as tolerated, weight loss, adequate hydration, acupuncture, aqua therapy and CBT therapy. All questions and concerns have been answered and patient agreed with the plan. Follow up for MRI results and sooner if needed. Medications: New tramadol 50 mg PO Q12H 15 days PRN 30 tabs 0RF pain M47.816 - Spondylosis without myelopathy or radiculopathy, lumbar region, M51.36 - Other intervertebral disc degeneration, lumbar region, M54.16 - Radiculopathy, lumbar region Coding Level of Care Code Est Pt Level 4 (09199) Diagnoses Discogenic low back pain M51.36 Lumbar spondylosis M47.816 Lumbar back pain with radiculopathy affecting right lower extremity M54.16 Left knee pain M25.562
[2023-05-30 13:51] VITALS: BP 144/66; PULSE 76; RESP 16; O2SAT 99; BMI 32.4
== END 2023-05-30 14:03 | disposition home or self-care (01) ==
PROVIDERS: PCP Internal Medicine; Visit Provider Nurse Practitioner Family
DX: M51.36 Other intervertebral disc degeneration, lumbar region (principal); M47.816 Spondylosis without myelopathy or radiculopathy, lumbar region; M54.16 Radiculopathy, lumbar region; M25.562 Pain in left knee
CPT/HCPCS: 99214

== ENCOUNTER → 2023-05-30 13:45 | Outpatient (BNVA) | payer MEDICAID, SELFPAY | PROVIDERS: PCP Internal Medicine; Visit Provider Nurse Practitioner Family | DX: M51.36 Other intervertebral disc degeneration, lumbar region (principal); M47.816 Spondylosis without myelopathy or radiculopathy, lumbar region; M54.16 Radiculopathy, lumbar region; M25.562 Pain in left knee | CPT/HCPCS: 99212 ==

== ENCOUNTER 2023-06-05 19:27 | Outpatient (REF) | payer MEDICAID, SELFPAY ==
--- NOTE | ~2023-06-05 | MR_ITS ---
EXAMINATION: MR LUMBAR SPINE WITHOUT CONTRAST CLINICAL INFORMATION: Right lower extremity radiculopathy and low back pain. COMPARISON: X-ray lumbar spine dated 12/14/2015. TECHNIQUE: Multiplanar, multisequence imaging was obtained. FINDINGS: VERTEBRAL BODIES AND PARASPINAL STRUCTURES: There is very mild endplate edema and reduced intradiscal signal with a mild posterior subluxation at the L4-L5 level. The remaining discs are fairly well-hydrated. No compression fractures are identified. The paraspinal soft tissues appear normal. The imaged bony pelvis is unremarkable. CONUS MEDULLARIS AND CAUDA EQUINA: The distal cord, conus tip, and cauda equina nerve roots are normal. SPINAL LEVELS: L1-L2: Minimal annular bulge and very mild facet arthropathy without central canal stenosis or foraminal narrowing. L2-L3: Mild facet arthropathy. No significant disc pathology. No central canal stenosis or foraminal narrowing. L3-L4: Mild posterior subluxation and diffuse disc bulge with hypertrophic facet arthropathy. No central canal stenosis. Mild right foraminal narrowing. Bulging disc and facet spurring result in [id number] left foraminal encroachment. L4-L5: Reduced intradiscal signal and mild posterior subluxation with a broad-based disc bulge and moderate facet arthropathy. Very small central disc protrusion visible. No central canal stenosis. Nnxg-kc-sfzzkcno bilateral foraminal narrowing. L5-S1: Well-hydrated disc with hypertrophic facet arthrosis. No central canal stenosis or foraminal narrowing. MR/MR lumbar spine wo con IMPRESSION: Ajdd-ew-uhgsvjsh spondylosis at the L3-L4 and L4-L5 levels. No focal disc protrusion or central canal stenosis. Jeej-cg-hkrgnasv foraminal narrowing, more so at the L4-L5 level where there is a small central disc protrusion as well.
== END 2023-06-05 19:28 | disposition home or self-care (01) ==
LOC: HO.MRI 19:27
PROVIDERS: PCP Internal Medicine; Visit Provider Nurse Practitioner Family
DX: M54.16 Radiculopathy, lumbar region (principal); M47.816 Spondylosis without myelopathy or radiculopathy, lumbar region
CPT/HCPCS: 72148

== ENCOUNTER 2023-06-13 10:44 | Outpatient (AMB) | payer MEDICAID, SELFPAY ==
--- NOTE | 2023-06-13 11:12 | MHC.OFFVIS ---
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 She report recent fall due to right knee giving out as she was walking up the stairs on Saturday. She has not made follow up visit with [facility] provider and request referral to our [facility] Orhopedic team. Patient continues to endorse bilateral knee pain and lower back pain with radiation into her right anterior thigh and right adames with numbness and tingling in her right medial foot and toes. Patient reports no pain relief with short script of tramadol. The back and knee pain is function and mobility limiting and has been resistant to conservative treatments. Patient is interested to undergo epidural steroidal injections to alleviate her right radicular symptoms. Lumbar spine MRI results were reviewed with patient today and report is noted below. Patient denies any fever, abdominal or groin pain, foot drop, bladder or bowel incontinence or saddle anesthesia. She reports right lower extremity weakness. Ambulates with mildly antalgic gait without assisting devices. PRIOR: Patient presents today for follow up for worsening low back pain. She has pending lumbar spine MRI on 06/05/23. Patient reports unbearable low back pain with radiation into her right lateral hip and into her RLE with numbness and tingling. She also reports bilateral knee pain, worse on left side in patellofemoral aspects. She sees provider at [facility] for this. Patient does not drive and reports walking to most of her destinations and at times takes public transportation. She rates her pain at 9.5/10. Pain is worse with walking, weight bearing, climbing or descending stairs, bending, squating, bending and cold weather changes. She takes Tylenol Arthritis, Ibuprofen 800 mg TID prn, lidocaine patches, and ice/heat therapies with continued symptoms. Denies any fever, bladder or bowel dysfunction, or saddle anesthesia. PRIOR: Patient is a pleasant 47 years old female with prior lumbar spondylosis, multiple surgeries for left wrist, chronic lower back pain, left knee pain, asthma, lumbar radiculopathy presents today for initial evaluation for low back pain. Denies any recent or past injury, trauma, or injury. Patient was followed by [facility] prior to moving back to [place] and was referred to [facility] and [facility] for treatments. Patient has declined injections for both pain clinics as she has had multiple back injections in [place] which did not improve her pain or functioning and were very painful. She sees [facility] for left knee pain. Her back pain is axial and also radiates into her bilateral lateral hips and into lower legs anteriorly and posteriorly. SLR testing is positive only on the right. Patient also has significant tenderness in the projection of both sacroiliac joint areas. Reports numbness and tingling with prolonged sitting and standing in her lower legs and feet. Chronic pain negatively affects her daily activities, functioning, mobility, mood, sleep and social interactions. Denies any fever, weight loss, abdominal pain, foot drop, bladder or bowel incontinence or saddle anesthesia. Reports lower extremity intermittent weakness with severe pain in her back or left knee. Patient reports she was sent to another physical therapy by [facility] recently but cannot pursue it at this time due to significant lower back pain especially with bending. She reports completing PT, chiropractic adjustments and massages in [place] with minimal and short term improvements. Location Low back pain, at times radiates to bilateral hips Duration Chronic pain for 4 years Characteristics of symptom or complaint Aching, stabbing, sharp, throbbing, aching Aggravating or associated factors Movements, bending, laying flat, walking, sitting, standing Relieving factors Tylenol, Ibuprofen, tried gabapentin and baclofen Treatment PT, chiropractic therapy, massages, multiple back injections in [facility] Medical History (Updated 06/13/23 @ 21:50 by JOSELINE Jones) Bilateral knee pain Lumbar back pain with radiculopathy affecting right lower extremity Chronic urticaria Social History Alcohol intake: never Substance Use Type: Marijuana Review of Systems Const All systems reviewed & are unremarkable except as noted in HPI and below Physical Exam Vital Signs: Last Vital Signs Pulse 64 06/13/23 11:28 BP 132/59 L 06/13/23 11:28 Pulse Ox 97 06/13/23 11:28 Oxygen Delivery Method Room Air 06/13/23 11:28 BMI result Body Mass Index 32.0 General: Appears afebrile. Alert and oriented. Mood and affect appropriate. Follows and participates in conversation appropriately. Respiratory effort is unlabored. No cough. No nasal discharge. Able to transition from sit to stand unassisted. General: Yes no CVA tenderness Back/Spine/Pelvis Other: Limited lumbar ROM due to pain. Antalgic gait, no limping. Can flex forward to 65-70 degrees and extend to 5-10 degrees before experiencing lumbar pain. Pain significantly increases with bending. Demonstrates 5/5 strength of quadriceps bilaterally as well as flexion/dorsiflexion of bilateral feet against resistance. 2+ pedal pulses bilaterally. Seated straight leg rise with dorsiflexion positive on the right. +2 left +1 right patellar and +2 achilles reflexes bilaterally. Facet loading test positive bilaterally. Anthony?s, Gaenslen, Pelvic compression and Stinchfield tests are positive bilaterally. No groin pain with I/E hip rotations. Valsalva maneuver negative. Mild TTP to right GTB. Back: no CVA tenderness and back tenderness Cervical Spine: cervical ROM normal and No Cervical spine tenderness Thoracic/Lumbar Spine: thoracic and lumbar spine normal to inspection, Thoracic/lumbar spine scar(s), Lasegue's sign positive on the right and localized, pain with thoraco-lumbar ROM, paraspinal muscle tenderness, thoraco-lumbar ROM limited, No thoracic spinal tenderness, lumbar spinal tenderness and straight leg raise positive right at 50 degrees Sacroiliac joints: bilaterally tender to palpation Extrem Right lower extremity: knee (Limited ROM due to pain. +Crepitus with flexion. Varus knee.) Details: normal to inspection, tenderness Location: of the patella and of the lateral joint line and crepitus; no swelling, no ecchymosis, no deformity and no unusual warmth Left lower extremity: knee (Limited ROM due to pain. Varus knee.) Details: normal to inspection, tenderness Location: of the patella and of the lateral joint line and crepitus; no swelling, no ecchymosis, no deformity and no unusual warmth Results Reviewed Results Reviewed: MR LUMBAR SPINE WITHOUT CONTRAST 06/05/23 CLINICAL INFORMATION: Right lower extremity radiculopathy and low back pain. COMPARISON: X-ray lumbar spine dated 12/14/2015. TECHNIQUE: Multiplanar, multisequence imaging was obtained. FINDINGS: VERTEBRAL BODIES AND PARASPINAL STRUCTURES: There is very mild endplate edema and reduced intradiscal signal with a mild posterior subluxation at the L4-L5 level. The remaining discs are fairly well-hydrated. No compression fractures are identified. The paraspinal soft tissues appear normal. The imaged bony pelvis is unremarkable. CONUS MEDULLARIS AND CAUDA EQUINA: The distal cord, conus tip, and cauda equina nerve roots are normal. SPINAL LEVELS: L1-L2: Minimal annular bulge and very mild facet arthropathy without central canal stenosis or foraminal narrowing. L2-L3: Mild facet arthropathy. No significant disc pathology. No central canal stenosis or foraminal narrowing. L3-L4: Mild posterior subluxation and diffuse disc bulge with hypertrophic facet arthropathy. No central canal stenosis. Mild right foraminal narrowing. Bulging disc and facet spurring result in fxuw-kl-irwtctly left foraminal encroachment. L4-L5: Reduced intradiscal signal and mild posterior subluxation with a broad-based disc bulge and moderate facet arthropathy. Very small central disc protrusion visible. No central canal stenosis. Dvnt-rv-fyivazmj bilateral foraminal narrowing. L5-S1: Well-hydrated disc with hypertrophic facet arthrosis. No central canal stenosis or foraminal narrowing. IMPRESSION: Jvxs-ru-kfdogxbj spondylosis at the L3-L4 and L4-L5 levels. No focal disc protrusion or central canal stenosis. Orer-qu-aswqhpil foraminal narrowing, more so at the L4-L5 level where there is a small central disc protrusion as well. Assessment & Plan Assessment & Plan (1) Bilateral knee pain: Code(s): M25.561 - Pain in right knee; M25.562 - Pain in left knee (2) Osteoarthritis of knees, bilateral: Code(s): M17.0 - Bilateral primary osteoarthritis of knee (3) Lumbar back pain with radiculopathy affecting right lower extremity: Code(s): M54.16 - Radiculopathy, lumbar region (4) Lumbar spondylosis: Code(s): M47.816 - Spondylosis without myelopathy or radiculopathy, lumbar region Plan Schedule Right L4-L5 TFESI with local and fluoroscopy for right-sided radicular symptoms. Patient with average pain > 8-9/10 and has exhausted conservative therapy without any pain relief. Patient is not diabetic and is not on any anticoagulation. Expectations, risks and benefits were reviewed. Patient is aware she will be contacted to schedule this procedure. Orthopedic we several to further evaluate bilateral knee pain, worse on the right side. Knee x-rays ordered; encouraged patient to complete these prior to her orthopedic visit. Continue ice/heat therapy, Tylenol, NSAIDs, lidocaine patches, elevation. All questions were answered and the patient is in agreement of plan. Follow-up after injections and sooner as needed. Orders: Orders XR knee RT 3V Today M17.0 - Bilateral primary osteoarthritis of knee, M25.561 - Pain in right knee, M25.562 - Pain in left knee XR knee LT 3V Today M17.0 - Bilateral primary osteoarthritis of knee, M25.561 - Pain in right knee, M25.562 - Pain in left knee Referrals Orthopedics Referral M17.0 - Bilateral primary osteoarthritis of knee, M25.561 - Pain in right knee, M25.562 - Pain in left knee Medications: Discontinued tramadol Discontinued Reason: Patient Completed Course 50 mg PO Q12H 15 days PRN 30 tabs 0RF pain M47.816 - Spondylosis without myelopathy or radiculopathy, lumbar region, M51.36 - Other intervertebral disc degeneration, lumbar region, M54.16 - Radiculopathy, lumbar region Coding Level of Care Code Est Pt Level 4 (91146) Diagnoses Bilateral knee pain M25.561; M25.562 Osteoarthritis of knees, bilateral M17.0 Lumbar back pain with radiculopathy affecting right lower extremity M54.16 Lumbar spondylosis M47.816
[2023-06-13 11:28] VITALS: BP 132/59; PULSE 64; O2SAT 97; BMI 32.0
== END 2023-06-13 11:52 | disposition home or self-care (01) ==
PROVIDERS: PCP Internal Medicine; Visit Provider Nurse Practitioner Family
DX: M25.561 Pain in right knee (principal); M25.562 Pain in left knee; M17.0 Bilateral primary osteoarthritis of knee; M54.16 Radiculopathy, lumbar region; M47.816 Spondylosis without myelopathy or radiculopathy, lumbar region
CPT/HCPCS: 99214

== ENCOUNTER → 2023-06-13 10:44 | Outpatient (BNVA) | payer MEDICAID, SELFPAY | PROVIDERS: PCP Internal Medicine; Visit Provider Nurse Practitioner Family | DX: M25.561 Pain in right knee (principal); M25.562 Pain in left knee; M17.0 Bilateral primary osteoarthritis of knee; M54.16 Radiculopathy, lumbar region; M47.816 Spondylosis without myelopathy or radiculopathy, lumbar region | CPT/HCPCS: 99212 ==

== ENCOUNTER 2023-07-03 09:22 | Outpatient (REF) | payer MEDICAID, SELFPAY ==
--- NOTE | ~2023-07-03 | XR_ITS ---
EXAMINATION: BILATERAL KNEES CLINICAL INFORMATION: Bilateral knee pain COMPARISON: Left knee MRI 09/24/2022 TECHNIQUE: 3 views each knee FINDINGS: Left: Mild bicompartmental degenerative changes are seen with some mild narrowing of the medial compartment with some lateral tibial plateau and femoral condyle osteophytes. There is a posterior osteophyte on the medial posterior surface of the patella. No joint effusion is seen. No chondrocalcinosis. Right: The right knee is unremarkable with preserved joint spaces, no chondrocalcinosis and no joint effusions. XR/XR knee LT 3V IMPRESSION: 1. Mild bicompartmental degenerative changes in the left knee. 2. Unremarkable right knee.
--- NOTE | ~2023-07-03 | XR_ITS ---
EXAMINATION: BILATERAL KNEES CLINICAL INFORMATION: Bilateral knee pain COMPARISON: Left knee MRI 09/24/2022 TECHNIQUE: 3 views each knee FINDINGS: Left: Mild bicompartmental degenerative changes are seen with some mild narrowing of the medial compartment with some lateral tibial plateau and femoral condyle osteophytes. There is a posterior osteophyte on the medial posterior surface of the patella. No joint effusion is seen. No chondrocalcinosis. Right: The right knee is unremarkable with preserved joint spaces, no chondrocalcinosis and no joint effusions. XR/XR knee RT 3V IMPRESSION: 1. Mild bicompartmental degenerative changes in the left knee. 2. Unremarkable right knee.
== END 2023-07-03 09:23 | disposition home or self-care (01) ==
LOC: HO.XRAY 09:22
PROVIDERS: PCP Internal Medicine; Visit Provider Nurse Practitioner Family
DX: M17.0 Bilateral primary osteoarthritis of knee (principal)
CPT/HCPCS: 73562

== ENCOUNTER 2023-07-03 09:52 | Emergency (ER) | payer MEDICAID, SELFPAY ==
[2023-07-03 09:59] VITALS: BP 138/62; PULSE 77; RESP 20; TEMP 36.4; O2SAT 100; BMI 36.9
[2023-07-03 11:47] VITALS: BP 136/71; PULSE 59; RESP 18; TEMP 36.5; O2SAT 100
--- NOTE | 2023-07-03 13:49 | ED_ITS ---
HPI - Back Pain/Injury General Chief Complaint: Back Pain/Injury Stated Complaint: Back pain Time Seen by Provider: 07/03/23 13:09 Source: patient and RN notes reviewed Mode of arrival: ambulatory Limitations: no limitations History of Present Illness HPI Narrative: This is a 47-year-old female, with a history of chronic back pain, presenting to the emergency department with complaints of ongoing chronic back pain x years. Patient reports that she is originally from [place] and was seeing pain management where she would occasionally get back injections to treat her chronic pain. She moved to the area recently and has been followed by [facility] due to ongoing back pain. She denies any recent trauma or injury. She states that her pain has worsened over the last year. Denies fevers, chills , abdominal pain, nausea, vomiting or diarrhea. No saddle anesthesia, urinary retention or incontinence. She states that movement makes the pain worse as well as lying flat. She describes the pain in her low back as constant, which waxes and wanes in severity and radiates into her right hip as well as right buttocks. She has been taking Tylenol as well as ibuprofen regularly without any relief. She is tried calling her primary care physician however they often times cancel appointments and she is unsure what to do at this point. No other complaints or concerns at this time. MD elicited complaint: back pain Pertinent past history: prior back pain Onset (ago): year(s) Timing: constant Severity: moderate Similar Symptoms Previously: Yes Quality: aching Location: lumbar spine Exacerbating factors: movement and supine positioning Relieving factors: none Related Data Home Medications Medication Instructions Recorded Confirmed acetaminophen 650 mg 650 mg PO Q12H PRN 02/05/23 07/04/23 tablet,extended release albuterol sulfate 90 mcg/actuation 2 puff inhalation Q6H PRN 02/05/23 07/04/23 aerosol inhaler cetirizine 10 mg capsule (Zyrtec) 10 mg PO DAILY PRN 02/05/23 07/04/23 hydroxyzine HCl 25 mg tablet 25 mg PO QID PRN 02/05/23 07/04/23 ibuprofen 800 mg tablet 800 mg PO Q8H 02/05/23 07/04/23 loratadine 10 mg tablet (Allergy 10 mg PO DAILY 02/05/23 07/04/23 Relief (loratadine)) montelukast 10 mg tablet 10 mg PO BEDTIME 02/05/23 07/04/23 (Singulair) omalizumab 150 mg subcutaneous 300 mg subcut Q4W 02/05/23 07/04/23 solution (Xolair) ondansetron HCl 4 mg tablet 4 mg PO Q8H PRN 02/05/23 07/04/23 albuterol sulfate 2.5 mg/3 mL mg inhalation Q4H PRN wheezing 06/13/23 07/04/23 (0.083 %) solution for nebulization epinephrine 0.3 mg/0.3 mL IM DIRECTED 06/13/23 07/04/23 injection, auto-injector famotidine 40 mg tablet 40 mg PO DAILY 06/13/23 07/04/23 fluticasone 500 mcg-salmeterol 50 1 ea inhalation BID 06/13/23 07/04/23 mcg/dose blistr powdr for inhalation (Advair Diskus) omeprazole 20 mg capsule,delayed 20 mg PO 06/13/23 07/04/23 release Previous Rx's Medication Instructions Recorded lidocaine 5 % topical patch 2 patch topical DAILY pain 30 days 02/05/23 #60 ea lidocaine 5 % topical patch 1 patch topical DAILY #30 ea 07/03/23 methocarbamol 750 mg tablet 1,500 mg (2 x 750 mg) PO Q8H 72 07/03/23 hours #18 tabs prednisone 20 mg tablet 40 mg (2 x 20 mg) PO DAILY 5 days 07/03/23 #10 tabs Allergies Allergy/AdvReac Type Severity Reaction Status Date / Time Penicillins [PENICILLINS] Allergy Unknown HIVES Verified 07/04/23 09:50 [facility] Past Medical History Medical History (Updated 07/04/23 @ 10:17 by Ho Chahal MD) Bilateral knee pain Lumbar back pain with radiculopathy affecting right lower extremity Chronic urticaria Surgical History (Updated 07/04/23 @ 09:57 by Jazmyn Neil CMA) Hx of hand surgery (~2013) Social History Social History (Updated 07/04/23 @ 09:53 by Jazmyn Neil CMA) Alcohol intake: never Patient Tobacco Use Status: Current everyday Tobacco user Substance Use Type: Marijuana Physical Exam Vital Signs: Vital Signs: Last Vital Signs Temp 98.0 F 07/03/23 14:02 Pulse 68 07/03/23 14:02 Resp 18 07/03/23 14:02 BP 138/78 07/03/23 14:02 Pulse Ox 98 07/03/23 14:02 O2 Del Method Room Air 07/03/23 14:02 BMI result Body Mass Index 36.9 Const: General: cooperative, comfortable and no acute distress Orientation/consciousness: patient oriented x3 Limitations: no limitations HEENT: Head: Yes normal to inspection, Yes normocephalic and Yes atraumatic Ears: hearing grossly normal bilaterally General nose exam: Normal external nose present Face and sinus: Yes normal facial exam Mouth: Normal oral and palatal mucosa present, oropharynx normal and moist mucous membranes Throat: Yes posterior oropharynx normal Eyes: General: appearance normal, both eyes and all related structures Eyelids: Yes eyelids normal Conjunctivae: conjunctivae normal Sclerae: sclerae normal Pupils: Equal, round and reactive pupils present EOM: EOMs intact bilaterally Neck: Neck: Yes normal visual inspection, Yes full ROM and Yes no lymphadenopathy Lymphatic: no lymphadenopathy noted Chest: Chest palpation & inspection: normal inspection of the chest Resp: Effort & Inspection: normal respiratory effort and able to speak in complete sentences Auscultation: clear to auscultation bilaterally, no crackles, no rales, no rhonchi and no wheezes Cardio: Rate: regular rate Rhythm: regular rhythm Heart sounds: S1 normal heart sound present and S2 normal heart sound present GI: Inspection: Yes normal to inspection Back/Spine/Pelvis: Other: No midline spine TTP. TTP overlying the right sciatic notch with spasm noted throughout lumbar paraspinous muscles. DTR 2+, Strength 5/5. Skin: General skin exam: no rashes or lesions noted Trauma: no lacerations or abrasions Wounds: no wounds Neuro: General: patient oriented x3 and moves all extremities Cranial nerves: Yes Equal, round and reactive pupils present Extrem: General: Yes normal to inspection Right upper extremity: normal to inspection Left upper extremity: normal to inspection Right lower extremi ty: normal to inspection Left lower extremity: normal to inspection Medications Administered Discontinued Medications Generic Name Dose Route Start Last Admin Trade Name Freq PRN Reason Stop Dose Admin Ketorolac Tromethamine 30 mg 07/03/23 13:49 07/03/23 13:58 Ketorolac Tromethamine 30 Mg/Ml Vial IM 07/03/23 13:50 30 mg ONCE ONE Administration Medical Decision Making Medical Decision Making [facility] Narrative: This is a 47-year-old female, with a history of chronic back pain, presenting to the emergency department with complaints of ongoing chronic back pain x years. This patient presents with back pain most consistent with acute on chronic back pain. Differential diagnoses includes lumbago versus musculoskeletal spasm / strain versus sciatica.No back pain red flags on history or physical. Presentation not consistent with malignancy (lack of history of malignancy, lack of B symptoms), fracture (no trauma, no bony tenderness to palpation), cauda equina (no bowel or urinary incontinence/retention, no saddle anesthesia, no distal weakness), pyelonephritis (afebrile, no CVAT, no urinary symptoms). Given the clinical picture, no indication for imaging at this time. She was medicated with Toradol. Recent MRI was performed and pt has not had any new injury. MRI of your back which shows spondylosis at L3-L4 and L4-L5 as well as a L4-L5 small central disc protrusion. Given radiculopathy sxs, likely ?sciatic nerve involvement Advised to f/u with community relations specialist. D/c on steroids and muscle relaxants. given return precautions. She understands and agrees with plan.Stable for d/c. Differential Diagnosis Differential Diagnoses: The differential diagnosis associated with the presentation includes See above Discharge Plan Discharge Clinical Impression: Chronic back pain Patient Disposition: Home, Self-Care Instructions: Chronic Back Pain (DC) Additional Instructions: You were seen in the emergency department due to ongoing chronic back pain. You have already received an MRI of your back which shows spondylosis at L3-L4 and L4-L5 as well as a L4-L5 small central disc protrusion. Today you have evidence of sciatica, which we had medicated do with a Toradol injection. I am prescribing you prednisone for 5 days as this can help with inflammation your back. Do not take prednisone and ibuprofen together as this increases your risk for bleeding and ulcers. I am also going to give you a muscle relaxants called Flexeril, do not drink or drive while taking this medication as this will cause drowsiness. Please take prescribed medication as directed. If any new or worsening symptoms occur including but not limited to numbness and tingling in your genital region, or urinary or bowel retention or incontinence, please return to the emergency room for further evaluation. I am also giving your referral to the community relations specialist, call to make an appointment. 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 Prescriptions: New prednisone 20 mg tablet 40 mg PO DAILY 5 Days Qty: 10 0RF methocarbamol 750 mg tablet 1,500 mg PO Q8H 3 Days Qty: 18 0RF lidocaine 5 % adhesive patch,medicated 1 patch topical DAILY Qty: 30 0RF Rx Instructions: leave on most painful area for up to 12 hrs No Action Xolair 150 mg recon soln 300 mg subcut Q4W Rx Instructions: requires multiple injection sites; do not exceed 150 mg per injection site albuterol sulfate 90 mcg/actuation HFA aerosol inhaler 2 puff inhalation Q6H PRN acetaminophen 650 mg tablet extended release 650 mg PO Q12H PRN ondansetron HCl 4 mg tablet 4 mg PO Q8H PRN Zyrtec 10 mg capsule 10 mg PO DAILY PRN hydroxyzine HCl 25 mg tablet 25 mg PO QID PRN loratadine [Allergy Relief (loratadine)] 10 mg tablet 10 mg PO DAILY montelukast [Singulair] 10 mg tablet 10 mg PO BEDTIME ibuprofen 800 mg tablet 800 mg PO Q8H lidocaine 5 % adhesive patch,medicated 2 patch topical DAILY 30 Days Qty: 60 2RF Rx Instructions: Apply to affected areas up to 12 hours per day epinephrine 0.3 mg/0.3 mL auto-injector IM DIRECTED albuterol sulfate 2.5 mg /3 mL (0.083 %) solution for nebulization inhalation Q4H PRN (Reason: wheezing) famotidine 40 mg tablet 40 mg PO DAILY omeprazole 20 mg capsule,delayed release(DR/EC) 20 mg PO fluticasone propion-salmeterol [Advair Diskus] 500-50 mcg/dose blister with device 1 ea inhalation BID Referrals: Hunter Aly MD, PhD [Physician] - Interventions: ED Discharge Assessment Last Done: 07/03/23 14:03 Discharge Date/Time: 07/03/23 14:04
[2023-07-03] MEDS: Ketorolac Tromethamine 30 MG/ML VIAL IM (13:58)
[2023-07-03 14:02] VITALS: BP 138/78; PULSE 68; RESP 18; TEMP 36.7; O2SAT 98
--- NOTE | 2023-07-03 14:03 | PC.NURSE ---
patient a&ox3, vss, c/o 8-10 lower back pain, pt medicated per order and is discharging with scripts and referral.
== END 2023-07-03 14:04 | disposition home or self-care (01) ==
PROVIDERS: Emergency Provider Emergency Medicine; PCP Internal Medicine
DX: M54.50 Low back pain, unspecified (principal); Z79.899 Other long term (current) drug therapy
CPT/HCPCS: 96372; 99284; J1885

== ENCOUNTER 2023-07-04 09:45 | Outpatient (AMB) | payer MEDICAID, SELFPAY ==
[2023-07-04 09:46] VITALS: BMI 36.9
--- NOTE | 2023-07-04 09:46 | A.OFFVIS_ITS ---
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 The patient states that her right knee pain is more severe than is her left at this time. Her right knee pain has gotten worse over the last few years in spite of continued non operative treatments. Most of the pain is along the medial aspect of her knee. She states that her right knee will give out several times per day. She has done physical therapy which aggravated her pain. She has also tried Tylenol and anti-inflammatory medicines which gave her minimal relief. She has had cortisone injections in the past which gave her only temporary relief. Allergies Penicillins [PENICILLINS] Allergy (Unknown, Verified 07/04/23 09:50) HIVES Medication List - Last Reconciled 07/04/23 by Ho Chahal MD acetaminophen ER 650 mg PO Q12H PRN albuterol sulfate 90 mcg/actuation 2 puffs inhalation Q6H PRN albuterol sulfate mg inhalation Q4H PRN cetirizine (Zyrtec) 10 mg PO DAILY PRN epinephrine IM DIRECTED famotidine 40 mg PO DAILY fluticasone propion-salmeterol 500-50 mcg/dose (Advair Diskus) 1 ea inhalation BID hydroxyzine HCl 25 mg PO QID PRN ibuprofen 800 mg PO Q8H lidocaine 5% 1 patch topical DAILY lidocaine 5% 2 patches topical DAILY 30 days loratadine (Allergy Relief (loratadine)) 10 mg PO DAILY methocarbamol 1,500 mg (2 x 750 mg) PO Q8H 72 hours montelukast (Singulair) 10 mg PO BEDTIME omalizumab (Xolair) 300 mg subcut Q4W omeprazole 20 mg PO ondansetron HCl 4 mg PO Q8H PRN prednisone 40 mg (2 x 20 mg) PO DAILY 5 days PFSH Medical History (Updated 07/04/23 @ 10:17 by Ho Chahal MD) Bilateral knee pain Lumbar back pain with radiculopathy affecting right lower extremity Chronic urticaria Surgical History (Updated 07/04/23 @ 09:57 by Jazmyn Neil CMA) Hx of hand surgery (~2013) Social History (Updated 07/04/23 @ 09:53 by Jazmyn Neil CMA) Alcohol intake: never Patient Tobacco Use Status: Current everyday Tobacco user Substance Use Type: Marijuana Physical Exam Vital Signs: BMI result Body Mass Index 36.9 Const Other: Well-nourished well-developed very friendly female awake alert and oriented x3 i n no acute distress Extrem Other: Bilateral lower extremity examination shows good capillary refill, no skin lesions noted, normal sensation light touch Bilateral knee examination shows minimal effusions, tenderness along her medial joint lines, positive Tommy's test, no instability Results Reviewed Results Reviewed: Standing full weight-bearing x-rays of the patient's bilateral knee show mild diffuse joint space narrowing, no acute bony abnormalities Assessment & Plan Assessment & Plan (1) Right knee pain: Code(s): M25.561 - Pain in right knee (2) Bilateral knee pain: Code(s): M25.561 - Pain in right knee; M25.562 - Pain in left knee Plan Ms. Chauhan presents with bilateral knee pains and mechanical symptoms, right greater than left, most likely due to tearing of her medial menisci. Thus, I will send the patient for an MRI of her right knee for further evaluation. If she does have a significant tear I will recommend arthroscopic surgery to optimize her future functional level. The patient will follow up with me after the MRI is completed to discuss the findings and treatment options. Feel free to call me at any time should questions regarding her orthopedic management arise. I spent 22 minutes in reviewing the patient's records and imaging studies, seeing the patient and documenting in the medical record. Orders: Orders MR knee RT wo con Today M25.561 - Pain in right knee Referrals Neurosurgery Referral M54.16 - Radiculopathy, lumbar region Coding Level of Care Code New Pt Level 2 (64796) Diagnoses Right knee pain M25.561 Bilateral knee pain M25.561; M25.562
== END 2023-07-04 10:10 | disposition home or self-care (01) ==
PROVIDERS: PCP Internal Medicine; Referring Provider Internal Medicine; Visit Provider Orthopaedic Surgery
DX: M25.561 Pain in right knee (principal); M25.562 Pain in left knee
CPT/HCPCS: 99202

== ENCOUNTER → 2023-07-04 09:45 | Outpatient (BNVA) | payer MEDICAID, SELFPAY | PROVIDERS: PCP Internal Medicine; Visit Provider Orthopaedic Surgery | DX: M25.561 Pain in right knee (principal); M25.562 Pain in left knee | CPT/HCPCS: 99202 ==

== ENCOUNTER 2023-09-25 09:33 | Outpatient (AMB) | payer MEDICAID, SELFPAY ==
--- NOTE | 2023-09-25 09:59 | HO.SPINEOV ---
Intake Intake Visit Reasons: Radiculopathy Intake Note: Ms. Chauhan is here today c/o low back pain that radiates down to the right leg/knee. 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 HPI: This 48-year-old female is having pain on the right side of her back for several years. The pain is located in the SI joint area and can radiate to the front of her thigh. The pain is constant. The pain wakes her up at night. She has had multiple injections in [place] without effect. It is unclear if they targeted the SI joint as well. She has been evaluated by our pain management team we diagnosed her with lumbar spondylosis and discogenic back pain. The patient denies pain on the left side. She takes Tylenol and ibuprofen but nothing is giving her relief. PMH: No other medical problems Medications: Tylenol, ibuprofen p.r.n., Zofran, albuterol, omeprazole, Pepcid, Singulair, epinephrine, Xolair Allergies: Penicillin Social history: Smokes 1 pack a day Physical Exam: Pleasant female in obvious agony. This pain on palpation of the right SI joint region. Straight leg raise produces pain in the same region. No neurological deficits for motor sensation or reflexes. Radiological Studies: MRI done at [facility] on 06/05/2023, shows mild L4-5 spondylosis. No nerve compression or central canal stenosis Impression/Plan: This patient is suffering from predominantly right-sided back pain it can radiate to the front of her thigh. The MRI shows very mild degenerative changes. My differential diagnosis is sacral iliac joint dysfunction. I do not think she suffering from discogenic back pain. I will refer her back to our pain management team to see if they can focus on the right SI joint. Thank you for allowing me to participate in your patients care. total time spent was 45 minutes in counseling ,coordination of plan, personal review of imaging, and subsequent plan Hunter Aly MD, PhD Spine Fellowship Trained Neurosurgeon Director, [facility] Coding Level of Care Code New Pt Level 4 (59066) Diagnoses Chronic right SI joint pain M53.3; G89.29
== END 2023-09-25 10:26 | disposition home or self-care (01) ==
PROVIDERS: PCP Internal Medicine; Referring Provider Orthopaedic Surgery; Visit Provider Neurological Surgery
DX: M53.3 Sacrococcygeal disorders, not elsewhere classified (principal); G89.29 Other chronic pain
CPT/HCPCS: 99204

== ENCOUNTER → 2023-09-25 09:33 | Outpatient (BNVA) | payer MEDICAID, SELFPAY | PROVIDERS: PCP Internal Medicine; Visit Provider Neurological Surgery | DX: M25.561 Pain in right knee (principal); M53.3 Sacrococcygeal disorders, not elsewhere classified; G89.29 Other chronic pain | CPT/HCPCS: 99202 ==

== ENCOUNTER 2023-10-03 11:19 | Outpatient (AMB) | payer MEDICAID, SELFPAY ==
--- NOTE | 2023-10-03 11:38 | A.OFFVIS_ITS ---
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 Aly. Patient reports she was recommended to address her right sacroiliac joint pain. Patient states most of her back pain is localized to the right side and extends to right sacral area and lateral hip with intermittent radiation into her right lower leg. She is also undergoing orthopedic evaluation for bilateral knee pain worse on the right and pending right knee MRI to rule out tearing of her medial menisci. Her walking capacity, mobility and functioning is limited due to significant pain. She reports no pain relief with short script of tramadol previously and continues to regularly take Tylenol Arthritis, Ibuprofen 800 mg Q8H, methocarbamol and lidocaine patches with continued symptoms. Patient denies any fever, abdominal or groin pain, foot drop, bladder or bowel incontinence or saddle anesthesia. PRIOR: Patient is a pleasant 47 years old female with prior lumbar spondylosis, multiple surgeries for left wrist, chronic lower back pain, left knee pain, asthma, lumbar radiculopathy presents today for initial evaluation for low back pain. Denies any recent or past injury, trauma, or injury. Patient was followed by [facility] prior to moving back to [place] and was referred to [facility] and [facility] for treatments. Patient has declined injections for both pain clinics as she has had multiple back injections in [place] which did not improve her pain or functioning and were very painful. She sees [facility] for left knee pain. Her back pain is axial and also radiates into her bilateral lateral hips and into lower legs anteriorly and posteriorly. SLR testing is positive only on the right. Patient also has significant tenderness in the projection of both sacroiliac joint areas. Reports numbness and tingling with prolonged sitting and standing in her lower legs and feet. Chronic pain negatively affects her daily activities, functioning, mobility, mood, sleep and social interactions. Denies any fever, weight loss, abdominal pain, foot drop, bladder or bowel incontinence or saddle anesthesia. Reports lower extremity intermittent weakness with severe pain in her back or left knee. Patient reports she was sent to another physical therapy by [facility] recently but cannot pursue it at this time due to significant lower back pain especially with bending. She reports completing PT, chiropractic adjustments and massages in [place] with minimal and short term improvements. Location Low back pain, at times radiates to bilateral hips Duration Chronic pain for 4 years Characteristics of symptom or complaint Aching, stabbing, sharp, throbbing, aching Aggravating or associated factors Movements, bending, laying flat, [place] dahlia, sitting, standing Relieving factors Tylenol, Ibuprofen, tried gabapentin and baclofen Treatment PT, chiropractic therapy, massages, multiple back injections in [facility] Medical History Bilateral knee pain Lumbar back pain with radiculopathy affecting right lower extremity Chronic urticaria Surgical History Hx of hand surgery (~2013) Social History Alcohol intake: never Patient Tobacco Use Status: Current everyday Tobacco user Substance Use Type: Marijuana Review of Systems Const All systems reviewed & are unremarkable except as noted in HPI and below Physical Exam Vital Signs: Last Vital Signs Pulse 65 10/03/23 11:48 BP 119/60 10/03/23 11:48 Pulse Ox 99 10/03/23 11:48 Oxygen Delivery Method Room Air 10/03/23 11:48 BMI result Body Mass Index 30.6 General: Appears afebrile. Alert and oriented. Mood and affect appropriate. Follows and participates in conversation appropriately. Respiratory effort is unlabored. No cough. Able to transition from sit to stand unassisted. General: Yes no CVA tenderness Back/Spine/Pelvis Other: Limited lumbar ROM due to pain. Antalgic gait, no limping. Pain significantly increases with bending and lumbar extension. Demonstrates 5/5 left and 4/5 right due to pain strength of quadriceps bilaterally as well as flexion/dorsiflexion of bilateral feet against resistance. 2+ pedal pulses bilaterally. Facet loading test positive bilaterally. Anthony?s, [place], Pelvic compression and Stinchfield tests are positive bilaterally, right>left. No groin pain with I/E hip rotations. Valsalva maneuver negative. Mild TTP to right GTB. Back: no CVA tenderness and back tenderness Cervical Spine: cervical ROM normal and No Cervical spine tenderness Thoracic/Lumbar Spine: thoracic and lumbar spine normal to inspection, Thoracic/lumbar spine scar(s), Lasegue's sign negative, straight leg raise negative bilaterally, pain with thoraco-lumbar ROM, paraspinal muscle tenderness, thoraco-lumbar ROM limited, No thoracic spinal tenderness and lumbar spinal tenderness (L3-S1) Pelvis: buttock tenderness on the right Sacroiliac joints: bilaterally (Right>Left) tender to palpation Extrem General: Yes capillary refill normal, Yes no clubbing, cyanosis or edema and Yes no calf tenderness Results Reviewed Results Reviewed: MR LUMBAR SPINE WITHOUT CONTRAST 06/05/23 CLINICAL INFORMATION: Right lower extremity radiculopathy and low back pain. COMPARISON: X-ray lumbar spine dated 12/14/2015. TECHNIQUE: Multiplanar, multisequence imaging was obtained. FINDINGS: VERTEBRAL BODIES AND PARASPINAL STRUCTURES: There is very mild endplate edema and reduced intradiscal signal with a mild posterior subluxation at the L4-L5 level. The remaining discs are fairly well-hydrated. No compression fractures are identified. The paraspinal soft tissues appear normal. The imaged bony pelvis is unremarkable. CONUS MEDULLARIS AND CAUDA EQUINA: The distal cord, conus tip, and cauda equina nerve roots are normal. SPINAL LEVELS: L1-L2: Minimal annular bulge and very mild facet arthropathy without central canal stenosis or foraminal narrowing. L2-L3: Mild facet arthropathy. No significant disc pathology. No central canal stenosis or foraminal narrowing. L3-L4: Mild posterior subluxation and diffuse disc bulge with hypertrophic facet arthropathy. No central canal stenosis. Mild right foraminal narrowing. Bulging disc and facet spurring result in [id number]-bl-sudbxuqs left foraminal encroachment. L4-L5: Reduced intradiscal signal and mild posterior subluxation with a broad-based disc bulge and moderate facet arthropathy. Very small central disc protrusion visible. No central canal stenosis. Ypbb-dy-cdnatsac bilateral foraminal narrowing. L5-S1: Well-hydrated disc with hypertrophic facet arthrosis. No central canal stenosis or foraminal narrowing. IMPRESSION: Uwmq-gi-axyufkcp spondylosis at the L3-L4 and L4-L5 levels. No focal disc protrusion or central canal stenosis. Fzpx-sq-nvosruue foraminal narrowing, more so at the L4-L5 level where there is a small central disc protrusion as well. Assessment & Plan Assessment & Plan (1) Lumbar spondylosis: Code(s): M47.816 - Spondylosis without myelopathy or radiculopathy, lumbar region Category: Medical (2) Chronic right SI joint pain: Code(s): M53.3 - Sacrococcygeal disorders, not elsewhere classified; G89.29 - Other chronic pain Category: Medical (3) Right knee pain: Code(s): M25.561 - Pain in right knee Category: Medical (4) Sacroiliitis: Code(s): M46.1 - Sacroiliitis, not elsewhere classified Category: Medical Plan Schedule Right Therapeutic Sacroiliac Joint Injection with local and fluoroscopy for chronic right SI joint pain. Patient with average pain > 9/10 and has exhausted conservative therapy without any pain relief. Patient is not diabetic and is not on any anticoagulation. Expectations, risks and benefits were reviewed. Patient is aware she will be contacted to schedule this procedure. We also discussed the risk and benefits of SI joint fusion, PNS trial and RFA procedures for longer-term pain relief. Patient would like to undergo therapeutic injection at this time. Patient was fitted for SI joint belt today. Instructions were provided on use of device and frequency. Short script provided for moderate-severe low back and right knee pain. She has pending right knee MRI per [facility]. Side effects and precautions discussed with patient for medication. Narcan script provided as well. All questions were answered and the patient is in agreement of plan. Follow-up after injections and sooner as needed. Medications: New oxycodone Partial Fill upon patient request. 5 mg PO Q8H 10 days PRN 30 tabs 0RF pain (scale score 7-10) G89.29 - Other chronic pain, M17.0 - Bilateral primary osteoarthritis of knee, M25.561 - Pain in right knee, M25.562 - Pain in left knee, M47.816 - Spondylosis without myelopathy or radiculopathy, lumbar region, M53.3 - Sacrococcygeal disorders, not elsewhere classified naloxone 4 mg/actuation (Narcan) spray 1 dose into ONE nostril; alternate nostrils w each dose until help arrives 4 mg intranasal Q2M PRN 2 ea 0RF opioid overdose Coding Level of Care Code Est Pt Level 4 (67894) Diagnoses Lumbar spondylosis M47.816 Chronic right SI joint pain M53.3; G89.29 Right knee pain M25.561 Sacroiliitis M46.1
[2023-10-03 11:48] VITALS: BP 119/60; PULSE 65; O2SAT 99; BMI 30.6
== END 2023-10-03 12:07 | disposition home or self-care (01) ==
PROVIDERS: PCP Internal Medicine; Visit Provider Nurse Practitioner Family
DX: M47.816 Spondylosis without myelopathy or radiculopathy, lumbar region (principal); M53.3 Sacrococcygeal disorders, not elsewhere classified; G89.29 Other chronic pain; M25.561 Pain in right knee; M46.1 Sacroiliitis, not elsewhere classified
CPT/HCPCS: 99214

== ENCOUNTER → 2023-10-03 11:19 | Outpatient (BNVA) | payer MEDICAID, SELFPAY | PROVIDERS: PCP Internal Medicine; Visit Provider Nurse Practitioner Family | DX: M47.816 Spondylosis without myelopathy or radiculopathy, lumbar region (principal); M53.3 Sacrococcygeal disorders, not elsewhere classified; M25.561 Pain in right knee; G89.29 Other chronic pain; M46.1 Sacroiliitis, not elsewhere classified | CPT/HCPCS: 99212 ==

== ENCOUNTER 2023-10-08 10:17 | Outpatient (REF) | payer MEDICAID, SELFPAY ==
--- NOTE | ~2023-10-08 | MM_ITS ---
EXAMINATION: MM SCREENING DIGITAL BREAST TOMOSYNTHESIS, BILATERAL CLINICAL INFORMATION: Screening. Asymptomatic. COMPARISON: Mammography: This study is compared with breast imaging dating back to 2016. TECHNIQUE: Digital breast tomosynthesis is performed in both the craniocaudal and mediolateral oblique views along with computer-aided detection (CAD). Synthesized 2D images are generated from the tomosynthesis. FINDINGS: There are scattered areas of fibroglandular density (ACR BI-RADS breast composition Category b). There are no significant masses, abnormal calcifications, or other abnormalities. MM/MM tomosynthesis screening BI IMPRESSION: No mammographic evidence of malignancy. ASSESSMENT: BI-RADS BI-RADS 1 - Negative RECOMMENDATION: Routine annual mammography screening. 1 year F/U This examination should not preclude the clinical evaluation of a suspicious palpable abnormality. This patient's information was entered into a reminder system with a target due date for their next mammogram.
== END 2023-10-08 10:18 | disposition home or self-care (01) ==
LOC: HO.MAMMO 10:17
PROVIDERS: PCP Nurse Practitioner Family; Visit Provider Nurse Practitioner Family
DX: Z12.31 Encounter for screening mammogram for malignant neoplasm of breast (principal)
CPT/HCPCS: 77063; 77067

== ENCOUNTER → 2023-10-08 10:45 | Outpatient (BNV) | payer MEDICAID, SELFPAY | PROVIDERS: PCP Nurse Practitioner Family; Visit Provider Radiology Diagnostic Radiology | DX: Z12.31 Encounter for screening mammogram for malignant neoplasm of breast (principal) | CPT/HCPCS: 77063; 77067 ==

== ENCOUNTER 2023-10-11 12:54 | Outpatient (REF) | payer MEDICAID, SELFPAY ==
--- NOTE | ~2023-10-11 | US_ITS ---
EXAMINATION: US PELVIS CLINICAL INFORMATION: Right lower quadrant pain LMP: 09/23/2023 COMPARISON: None available. TECHNIQUE: Ultrasound of the pelvis is performed using both transabdominal and transvaginal transducers along with Doppler. Transvaginal imaging is performed due to inadequate visualization transabdominally. Technically limited study due to bowel gas. FINDINGS: Uterus: The uterus is anteverted and measures 7.5 x 3.7 x 4.0 cm. No focal fibroid. The endometrial thickness is 0.4 cm. Adnexa: Both ovaries are visualized. There is normal color flow to the adnexa. There is no ovarian torsion. There is no pelvic ascites or fluid collection. Right ovary measures 1.9 x 1.2 x 1.6 cm. Volume 1.9 mL. Left ovary measures 1.8 x 1.2 x 2.1 cm. Volume 2.4 mL. US/US pelvic and transvaginal IMPRESSION: Normal pelvic ultrasound.
== END 2023-10-11 12:55 | disposition home or self-care (01) ==
LOC: HO.US 12:54
PROVIDERS: PCP Nurse Practitioner Family; Visit Provider Nurse Practitioner Family
DX: R10.823 Right lower quadrant rebound abdominal tenderness (principal)
CPT/HCPCS: 76830; 76856

== ENCOUNTER 2023-10-17 08:33 | Outpatient (REF) | payer MEDICAID, SELFPAY ==
--- NOTE | ~2023-10-17 | MR_ITS ---
EXAMINATION: MR KNEE WITHOUT CONTRAST, RIGHT CLINICAL INFORMATION: Pain in the right knee. COMPARISON: X-ray of the left knee June 2023. TECHNIQUE: MRI of the knee without contrast was performed using routine sequences on a high-field scanner. FINDINGS: MENISCI: Medial Meniscus: Intact Lateral Meniscus: There is a subtle oblique focus of increased signal in the posterior horn and body of the meniscus possibly extending to the tibial articular surface considered suspicious but not definitive for a tear. LIGAMENTS: Cruciate: Intact Collateral: Intact EXTENSOR MECHANISM: Intact ARTICULAR CARTILAGE/BONE: Patellofemoral Compartment: There is scattered cartilage heterogeneity in the median ridge of the patella. Trochlear cartilage normal. Overall minimal patellofemoral arthrosis. Medial Compartment: Normal Lateral Compartment: Normal JOINT FLUID AND BURSAE: Normal MR/MR knee RT wo con IMPRESSION: 1. Subtle findings in the lateral meniscus suspicious but not definitive for tear. 2. Minimal patellofemoral arthrosis.
== END 2023-10-17 08:34 | disposition home or self-care (01) ==
LOC: HO.MRI 08:33
PROVIDERS: PCP Internal Medicine; Visit Provider Orthopaedic Surgery
DX: M25.561 Pain in right knee (principal)
CPT/HCPCS: 73721

== ENCOUNTER 2023-10-30 10:54 | Outpatient (AMB) | payer MEDICAID, SELFPAY ==
[2023-10-30 11:09] VITALS: BMI 30.6
--- NOTE | 2023-10-30 11:09 | A.OFFVIS_ITS ---
Vital Signs 10/30/23 11:09 Height 5 ft 4 in Weight 178 lb BMI 30.6 Intake Visit Reasons: MRI f/up, Right knee pain Intake Note: Franchesca is a 48 year old patient who presents for her MRI Right knee review. The patient describes her right knee pain as sharp in nature. Her right knee pain has gotten worse over the last few in spite of continued non operative treatments. She has done physical therapy which aggravated pain. She has had cortisone injections which gave her minimal relief. She has not had a viscosupplementation injection. She denies any locking or giving way. She wishes to hold off on surgery for as long as possible. She also has continued pain along her right sacroiliac joint. Allergies Penicillins [PENICILLINS] Allergy (Unknown, Verified 10/30/23 11:11) HIVES Medication List - Last Reconciled 10/31/23 by Ho Chahal MD acetaminophen ER 650 mg PO Q12H PRN albuterol sulfate 90 mcg/actuation 2 puffs inhalation Q6H PRN albuterol sulfate mg inhalation Q4H PRN cetirizine (Zyrtec) 10 mg PO DAILY PRN epinephrine IM DIRECTED famotidine 40 mg PO DAILY fluticasone propion-salmeterol 500-50 mcg/dose (Advair Diskus) 1 ea inhalation BID hydroxyzine HCl 25 mg PO QID PRN ibuprofen 800 mg PO Q8H loratadine (Allergy Relief (loratadine)) 10 mg PO DAILY montelukast (Singulair) 10 mg PO BEDTIME naloxone 4 mg/actuation (Narcan) 4 mg intranasal Q2M PRN omalizumab (Xolair) 300 mg subcut Q4W omeprazole 20 mg PO ondansetron HCl 4 mg PO Q8H PRN oxycodone 5 mg PO Q8H PRN 3 days prednisone 40 mg (2 x 20 mg) PO DAILY 5 days PFSH Medical History Bilateral knee pain Lumbar back pain with radiculopathy affecting right lower extremity Chronic urticaria Surgical History Hx of hand surgery (~2013) Social History Alcohol intake: never Patient Tobacco Use Status: Current everyday Tobacco user Substance Use Type: Marijuana Physical Exam Vital Signs: BMI result Body Mass Index 30.6 Const Other: Well-nourished well-developed very friendly female awake alert and oriented x3 in no acute distress Extrem Other: Bilateral lower extremity examination shows good capillary refill, no skin le sions noted, normal sensation light touch Right knee examination shows a minimal effusion, palpable crepitus with range of motion, pain with range of motion, negative Tommy's test, no instability Results Reviewed Results Reviewed: MRI of the patient's right knee shows mild to moderate diffuse degenerative changes as well as a small tear of the medial meniscus, no acute bony abnormalities Assessment & Plan Assessment & Plan (1) Right knee pain: Code(s): M25.561 - Pain in right knee Category: Medical Plan Ms. Chauhan presents with progressively worsening right knee pain due to degenerative joint disease as well as a small medial meniscus tear. I had a lengthy discussion with the patient regarding the treatment options. She wishes to hold off on surgery for as long as possible. I agree with this plan. She has not gotten good relief from cortisone injections in the past. Thus, I will see whether not her insurance company will cover a viscosupplementation injection for her right knee. I will see her back once the injection is available. If she fails continued non operative treatments we will further discuss the risks and benefits of right knee arthroscopic surgery. Feel free to call me at any time should questions regarding her orthopedic management arise. I spent 21 minutes in reviewing the patient's records and imaging studies, seeing the patient and documenting in the medical record. Coding Level of Care Code Est Pt Level 3 (48089) Diagnoses Right knee pain M25.561
== END 2023-10-30 11:33 | disposition home or self-care (01) ==
PROVIDERS: PCP Nurse Practitioner Family; Visit Provider Orthopaedic Surgery
DX: M25.561 Pain in right knee (principal); S83.241A Other tear of medial meniscus, current injury, right knee, initial encounter
CPT/HCPCS: 99213

== ENCOUNTER → 2023-10-30 10:54 | Outpatient (BNVA) | payer MEDICAID, SELFPAY | PROVIDERS: PCP Nurse Practitioner Family; Visit Provider Orthopaedic Surgery | DX: M25.561 Pain in right knee (principal); S83.241A Other tear of medial meniscus, current injury, right knee, initial encounter; X58.XXXA Exposure to other specified factors, initial encounter; Y93.9 Activity, unspecified; Y92.9 Unspecified place or not applicable; Y99.9 Unspecified external cause status | CPT/HCPCS: 99212 ==

== ENCOUNTER 2023-11-01 12:58 | Outpatient (REF) | payer MEDICAID, SELFPAY ==
--- NOTE | ~2023-11-01 | XR_ITS ---
EXAMINATION: XR HIP, RIGHT CLINICAL INFORMATION: Severe right hip pain. Sacroiliac joint pain and/or trochanteric bursitis. Order states right hip pain, severe right hip pain, SI joint pain and/or trochanteric bursitis. Patient denies injury states she's had hip pain for 2+ years, denies injury. COMPARISON: AP pelvis 07/17/2016. TECHNIQUE: Two views of the right hip. FINDINGS: Mild degenerative changes with superior joint space narrowing and lateral acetabular hypertrophic change in the right hip. Right hip alignment preserved. Redemonstration of partial sacralization of L5 on the right. XR/XR hip RT min 2V IMPRESSION: Mild degenerative changes in the right hip.
== END 2023-11-01 12:59 | disposition home or self-care (01) ==
LOC: HO.HHCX 12:58
PROVIDERS: Visit Provider Family Medicine
DX: M25.551 Pain in right hip (principal)
CPT/HCPCS: 73502

== ENCOUNTER 2023-11-05 06:13 | Outpatient (REF) | payer MEDICAID, SELFPAY ==
--- NOTE | ~2023-11-05 | FL_ITS ---
EXAMINATION: XR FLUOROSCOPY WITH IMAGES CLINICAL INFORMATION: Sacrococcygeal disorders. COMPARISON: None available. TECHNIQUE: Fluoroscopy Supervised By: Dr. Henriquez. Fluoroscopy Time: 0.2 min. Cumulative Dose: 3.50 mGy. DAP: 0.0608 Gycm2. Images: 2. FINDINGS: Intraoperative fluoroscopy and spot films were performed during a procedure in the OR. A spinal needle is seen overlying the right SI joint with contrast injected. Please see Dr. Henriquez's report for complete details. FL/FL guidance in treatment room IMPRESSION: Intraoperative fluoroscopy and spot films were obtained. Please see Dr. Henriquez's report for complete details.
== END 2023-11-05 06:14 | disposition home or self-care (01) ==
LOC: CF 06:13
PROVIDERS: Visit Provider Anesthesiology
DX: M47.816 Spondylosis without myelopathy or radiculopathy, lumbar region (principal); M53.3 Sacrococcygeal disorders, not elsewhere classified; M25.561 Pain in right knee; M46.1 Sacroiliitis, not elsewhere classified; G89.29 Other chronic pain
CPT/HCPCS: 27096; J2795; J3301; Q9967

== ENCOUNTER 2023-11-05 10:11 | Outpatient (AMB) | payer MEDICAID, SELFPAY ==
--- NOTE | 2023-11-05 10:38 | A.OFFVIS_ITS ---
Vital Signs 11/05/23 11:18 11/05/23 11:19 Height 5 ft 4 in Weight 178 lb BMI 30.6 BP 126/74 138/90 H Blood Pressure Location Lt brachial Lt brachial Position Sitting Sitting Respiration 18 18 Pulse 77 70 Pulse Source Pulse Oximeter Pulse Oximeter Pulse Oximetry (%) 98 96 Oxygen Delivery Method Room Air Room Air Comment Pre-Op Post-Op Intake Visit Reasons: Right theraputic SIJ inj Allergies Penicillins [PENICILLINS] Allergy (Unknown, Verified 10/30/23 11:11) HIVES [facility] Medical History Bilateral knee pain Lumbar back pain with radiculopathy affecting right lower extremity Chronic urticaria Surgical History Hx of hand surgery (~2013) Social History Alcohol intake: never Patient Tobacco Use Status: Current everyday Tobacco user Substance Use Type: Marijuana Physical Exam Vital Signs: Last Vital Signs Pulse 70 11/05/23 11:19 Resp 18 11/05/23 11:19 BP 138/90 H 11/05/23 11:19 Pulse Ox 96 11/05/23 11:19 Oxygen Delivery Method Room Air 11/05/23 11:19 BMI result Body Mass Index 30.6 Assessment & Plan Assessment & Plan (1) Lumbar spondylosis: Code(s): M47.816 - Spondylosis without myelopathy or radiculopathy, lumbar region Category: Medical (2) Chronic right SI joint pain: Code(s): M53.3 - Sacrococcygeal disorders, not elsewhere classified; G89.29 - Other chronic pain Category: Medical (3) Right knee pain: Code(s): M25.561 - Pain in right knee Category: Medical (4) Sacroiliitis: Code(s): M46.1 - Sacroiliitis, not elsewhere classified Category: Medical Plan: Right therapeutic sacroiliac joint injection. Informed consent was explained thoroughly to the patient. All questions about benefits and risks for the procedure were answered. Patient came to the operating room and was positioned prone on the operating table with the pillow under the pelvis. Time out was performed delineating name and of the patient, allergies and the nature of the procedure. The lower back and buttocks of the patient were prepped with ChloraPrep prepped and draped with sterile utility towels. C-arm was brought over the operating field and sq picture of patient's pelvis was demonstrated on the screen. For the right joint tilting C-arm contralateral to the site of the joint the most posterior portion of the joints was superimposed with anterior silhouette of the joint. Skin was injected in the projection of the joint slightly medial to the location of the joint with 25 gauge 1/2 inch needle using local lidocaine 2% .After that 22 gauge 3 and 1/2 inch needle was driven to the right joint in tunnel vision fashion. When needle entered the joint capsule injection of the contrast was performed demonstrating intra-articular and minimally periarticular spread of the contrast. After that 4 cc. of ropivacaine 0.5% mixed with kenalog 40 mg was injected into the joint. Upon completion of the injections the needle was removed Sterile dressing was applied. Upon completion of the injection patient was taken outside of the operating room to the recovery room where recovered uneventfully. Plan Schedule Right Therapeutic Sacroiliac Joint Injection with local and fluoroscopy for chronic right SI joint pain. Patient with average pain > 9/10 and has exhausted conservative therapy without any pain relief. Patient is not diabetic and is not on any anticoagulation. Expectations, risks and benefits were reviewed. Patient is aware she will be contacted to schedule this procedure. We also discussed the risk and benefits of SI joint fusion, PNS trial and RFA procedures for longer-term pain relief. Patient would like to undergo therapeutic injection at this time. Patient was fitted for SI joint belt today. Instructions were provided on use of device and frequency. Short script provided for moderate-severe low back and right knee pain. She has pending right knee MRI per [facility]. Side effects and precautions discussed with patient for medication. Narcan script provided as well. All questions were answered and the patient is in agreement of plan. Follow-up after injections and sooner as needed. Orders: Orders FL guidance in treatment room Today G89.29 - Other chronic pain, M53.3 - Sacrococcygeal disorders, not elsewhere classified Coding Level of Care Code Procedure Only Diagnoses Lumbar spondylosis M47.816 Chronic right SI joint pain M53.3; G89.29 Right knee pain M25.561 Sacroiliitis M46.1
[2023-11-05 11:18] VITALS: BP 126/74; PULSE 77; RESP 18; O2SAT 98; BMI 30.6
[2023-11-05 11:19] VITALS: BP 138/90; PULSE 70; RESP 18; O2SAT 96
== END 2023-11-05 11:22 | disposition home or self-care (01) ==
LOC: HO.PMCPRC 10:11
PROVIDERS: PCP Nurse Practitioner Family; Visit Provider Anesthesiology
DX: M53.3 Sacrococcygeal disorders, not elsewhere classified (principal); G89.29 Other chronic pain; M46.1 Sacroiliitis, not elsewhere classified
CPT/HCPCS: 27096

== ENCOUNTER 2023-11-12 11:22 | Outpatient (AMB) | payer MEDICAID, SELFPAY ==
--- NOTE | 2023-11-12 11:23 | A.OFFVIS_ITS ---
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 Henriquez. Patient reports 0% pain relief since procedure without any improvement in her daily functioning, mobility or sleep. Patient reports wearing SI joint belt provided at previous visit on most days. We discussed undergoing SI innervation diagnostic injections under sedation for potential Curonix PNS trial. Patient will review information at home with her family and notify our office with her decision. She also continues to experience significant right knee pain and is scheduled to undergo gel injections at Orthopedic's office. Denies any recent cough, cold, infection, fever, any significant changes in her medical history, medications or recent hospitalizations. Past Procedures: 11/05/23: Right Therapeutic SIJ injection-0% pain relief PRIOR: Patient presents today for follow-up after Neurosurgical evaluation on 09/25/[address] Aly. Patient reports she was recommended to address her right sacroiliac joint pain. Patient states most of her back pain is localized to the right side and extends to right sacral area and lateral hip with intermittent radiation into her right lower leg. She is also undergoing orthopedic evaluation for bilateral knee pain worse on the right and pending right knee MRI to rule out tearing of her medial menisci. Her walking capacity, mobility and functioning is limited due to significant pain. She reports no pain relief with short script of tramadol previously and continues to regularly take Tylenol Arthritis, Ibuprofen 800 mg Q8H, methocarbamol and lidocaine patches with continued symptoms. Patient denies any fever, abdominal or groin pain, foot drop, bladder or bowel incontinence or saddle anesthesia. PRIOR: Patient is a pleasant 47 years old female with prior lumbar spondylosis, multiple surgeries for left wrist, chronic lower back pain, left knee pain, asthma, lumbar radiculopathy presents today for initial evaluation for low back pain. Denies any recent or past injury, trauma, or injury. Patient was followed by [facility] prior to moving back to [place] and was referred to [facility] and [facility] for treatments. Patient has declined injections for both pain clinics as she has had multiple back injections in [place] which did not improve her pain or functioning and were very painful. She sees [facility] for left knee pain. Her back pain is axial and also radiates into her bilateral lateral hips and into lower legs anteriorly and posteriorly. SLR testing is positive only on the right. Patient also has significant tenderness in the projection of both sacroiliac joint areas. Reports numbness and tingling with prolonged sitting and standing in her lower legs and feet. Chronic pain negatively affects her daily activities, functioning, mobility, mood, sleep and social interactions. Denies any fever, weight loss, abdominal pain, foot drop, bladder or bowel incontinence or saddle anesthesia. Reports lower extremity intermittent weakness with severe pain in her back or left knee. Patient reports she was sent to another physical therapy by [facility] recently but cannot pursue it at this time due to significant lower back pain especially with bending. She reports completing PT, chiropractic adjustments and massages in [place] with minimal and short term improvements. Location Low back pain, at times radiates to bilateral hips Duration Chronic pain for 4 years Characteristics of symptom or complaint Aching, stabbing, sharp, throbbing, aching Aggravating or associated factors Movements, bending, laying flat, walking, sitting, standing Relieving factors Tylenol, Ibuprofen, tried gabapentin and baclofen Treatment PT, chiropractic therapy, massages, multiple back injections in [facility] Medical History Bilateral knee pain Lumbar back pain with radiculopathy affecting right lower extremity Chronic urticaria Surgical History Hx of hand surgery (~2013) Social History Alcohol intake: never Patient Tobacco Use Status: Current everyday Tobacco user Substance Use Type: Marijuana Review of Systems Const All systems reviewed & are unremarkable except as noted in HPI and below Physical Exam General: Appears afebrile. No acute distress. Alert and oriented. Mood and affect appropriate. Follows and participates in conversation appropriately. Respiratory effort is unlabored. No cough. Able to transition from sit to stand unassisted. Ambulates with bilaterally normal heel strike and toe off. Back/Spine/Pelvis Cervical Spine: cervical ROM normal and No Cervical spine tenderness Thoracic/Lumbar Spine: thoracic and lumbar spine normal to inspection, Lasegue's sign negative, straight leg raise negative bilaterally, pain with thoraco- lumbar ROM, No thoracic spinal tenderness and lumbar spinal tenderness at L4 and at L5 Pelvis: buttock tenderness on the right and no sciatic notch tenderness Sacroiliac joints: on the right (+Anthony's, +Stinchfield) tender to palpation and on the left nontender Extrem General: Yes capillary refill normal, Yes no clubbing, cyanosis or edema and Yes no calf tenderness Results Reviewed Results Reviewed: MR LUMBAR SPINE WITHOUT CONTRAST 06/05/23 CLINICAL INFORMATION: Right lower extremity radiculopathy and low back pain. COMPARISON: X-ray lumbar spine dated 12/14/2015. TECHNIQUE: Multiplanar, multisequence imaging was obtained. FINDINGS: VERTEBRAL BODIES AND PARASPINAL STRUCTURES: There is very mild endplate edema and reduced intradiscal signal with a mild posterior subluxation at the L4-L5 level. The remaining discs are fairly well-hydrated. No compression fractures are identified. The paraspinal soft tissues appear normal. The imaged bony pelvis is unremarkable. CONUS MEDULLARIS AND CAUDA EQUINA: The distal cord, conus tip, and cauda equina nerve roots are normal. SPINAL LEVELS: L1-L2: Minimal annular bulge and very mild facet arthropathy without central canal stenosis or foraminal narrowing. L2-L3: Mild facet arthropathy. No significant disc pathology. No central canal stenosis or foraminal narrowing. L3-L4: Mild posterior subluxation and diffuse disc bulge with hypertrophic facet arthropathy. No central canal stenosis. Mild right foraminal narrowing. Bulging disc and facet spurring result in [id number] left foraminal encroachment. L4-L5: Reduced intradiscal signal and mild posterior subluxation with a broad-based disc bulge and moderate facet arthropathy. Very small central disc protrusion visible. No central canal stenosis. Nmft-ha-spmkfdas bilateral foraminal narrowing. L5-S1: Well-hydrated disc with hypertrophic facet arthrosis. No central canal stenosis or foraminal narrowing. IMPRESSION: Ddlt-uo-vxvzztaf spondylosis at the L3-L4 and L4-L5 levels. No focal disc protrusion or central canal stenosis. Cput-qf-bqdfrewk foraminal narrowing, more so at the L4-L5 level where there is a small central disc protrusion as well. Assessment & Plan Assessment & Plan (1) Lumbar spondylosis: Code(s): M47.816 - Spondylosis without myelopathy or radiculopathy, lumbar region Category: Medical (2) Chronic right SI joint pain: Code(s): M53.3 - Sacrococcygeal disorders, not elsewhere classified; G89.29 - Other chronic pain Category: Medical (3) Right knee pain: Code(s): M25.561 - Pain in right knee Category: Medical (4) Sacroiliitis: Code(s): M46.1 - Sacroiliitis, not elsewhere classified Category: Medical Plan Patient is status post right therapeutic SIJ injection with no pain relief. We discussed undergoing SI innervation diagnostic injections under sedation for potential Curonix PNS trial. Previously discussed the risk and benefits of SI joint fusion, PNS trial and RFA procedures for longer-term pain relief. Patient will review information at home with her family and notify our office with her decision. Continue use of SI joint belt, daily physical activity and stretching exercises, weight optimization, and adequate hydration. Follow up with Orthopedics for right knee pain as planned. All questions were answered and the patient is in agreement of plan. Follow-up as needed. Coding Level of Care Code Est Pt Level 3 (60602) Diagnoses Lumbar spondylosis M47.816 Chronic right SI joint pain M53.3; G89.29 Right knee pain M25.561 Sacroiliitis M46.1
[2023-11-12 11:26] VITALS: BP 109/54; PULSE 61; O2SAT 99; BMI 31.4
== END 2023-11-12 11:34 | disposition home or self-care (01) ==
PROVIDERS: PCP Nurse Practitioner Family; Visit Provider Nurse Practitioner Family
DX: M47.816 Spondylosis without myelopathy or radiculopathy, lumbar region (principal); M53.3 Sacrococcygeal disorders, not elsewhere classified; G89.29 Other chronic pain; M25.561 Pain in right knee; M46.1 Sacroiliitis, not elsewhere classified
CPT/HCPCS: 99213

== ENCOUNTER → 2023-11-12 11:22 | Outpatient (BNVA) | payer MEDICAID, SELFPAY | PROVIDERS: PCP Nurse Practitioner Family; Visit Provider Nurse Practitioner Family | DX: M47.816 Spondylosis without myelopathy or radiculopathy, lumbar region (principal); G89.29 Other chronic pain; M53.3 Sacrococcygeal disorders, not elsewhere classified; M25.561 Pain in right knee; M46.1 Sacroiliitis, not elsewhere classified; Z98.890 Other specified postprocedural states | CPT/HCPCS: 99212 ==

== ENCOUNTER 2023-11-13 09:55 | Outpatient (AMB) | payer MEDICAID, SELFPAY ==
--- NOTE | 2023-11-13 10:02 | MHC.OFFVIS ---
Vital Signs 11/13/23 10:05 Height 5 ft 4 in Weight 183 lb 13.848 oz BMI 31.6 BP 106/63 Blood Pressure Location Lt brachial Position Sitting Pulse 60 Intake Visit Reasons: Epigastric pain Intake Note: Franchesca presents to in office visit today as a new patient for epigastric pain. CC: Patient c/o epigastric pain for over a year, nausea, stomach pain after eating or drinking, heartburn, and acid reflux. She states that she was on Ibuprofen for about 4 years but no longer takes it. She has never had a colonoscopy or EGD done. 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 She can't eat anything w/o getting severe pain just below the epigastric area. She also has severe GERD amie with spaghetti sauce. She only eats a little late in the after noon. The pain will last for a couple of hours. The pain is sharp midline and at times will feel cramping. It is localized and dose not radiate. No cic or diarrhea. She feels bloated all the time. She has an uncle with gastrits. Maternal grandmother with GB disease and cholecystectomy. Except for her ibuprofen use there are no other medication preceding this, no specific illness, no sick contacts. She is only on o2o 20mg qd need to increase to 40mg bid - consider carafate. Getting EGD/colonoscopy as she is screening due. Ashtma controlled no cardiac There are no prior problems with anesthesia or sedation.. No ID problems. No FHX of stomach or colon cancer or polyps [facility] Medical History Bilateral knee pain Lumbar back pain with radiculopathy affecting right lower extremity Chronic urticaria Surgical History H/O tubal ligation Hx of hand surgery (~2013) Family History Father Throat cancer Family/Other Breast cancer Social History Alcohol intake: never Patient Tobacco Use Status: Current everyday Tobacco user Substance Use Type: Marijuana Review of Systems Const Denies fatigue, Denies fever(s), Denies night sweats, Denies poor appetite and Denies weight loss Eyes Details: Glasses Reports requires corrective lenses ENT Reports Normal hearing present, Denies dysphagia, Denies odynophagia, Denies throat swelling and Denies tongue swelling Card Reports no additional complaints Resp Reports no additional complaints GI Details: Reports abdominal pain, Denies melena, Denies bloating, Denies hematochezia, Denies constipation, Denies GI cramping, Denies dysphagia, Denies excessive flatus, Denies early satiety, Denies heartburn, Denies diarrhea, Denies nausea, Denies odynophagia, Denies vomiting and Denies hematemesis Skin/Breast Denies pruritus, Denies lesions, Denies rash and Denies jaundice Neuro Reports Normal hearing present and Denies Abnormal speech present Endo Denies fatigue Aller/Immun Denies throat swelling and Denies tongue swelling Physical Exam Vital Signs: Last Vital Signs Pulse 60 11/13/23 10:05 BP 106/63 11/13/23 10:05 BMI result Body Mass Index 31.6 Const General: cooperative, no acute distress, well developed and well groomed Nutritional Appearance: well nourished and obese Orientation/consciousness: oriented to person, oriented to place and oriented to time Limitations: No language barrier HEENT Head: Yes normocephalic and Yes atraumatic Eyes General: appearance normal, both eyes and all related structures Pupils: Equal, round and reactive pupils present Neck Neck: Yes normal visual inspection and Yes no lymphadenopathy Thyroid: Thyroid normal Resp Effort & Inspection: normal respiratory effort and able to speak in complete sentences Auscultation: clear to auscultation bilaterally Cardio Rate: regular rate Rhythm: regular rhythm Heart sounds: Normal, physiologic split S2 sound present Peripheral pulses: radial pulses present and posterior tibial pulses present GI Inspection: No distended, Yes Abdominal panniculus present, Yes obesity and Yes scar Palpation (GI): Soft to palpation, Tenderness to palpation present (GI) in the epigastrum, no guarding, not rigid and No hepatosplenomegaly present Percussion: Yes normal to percussion Auscultation: normal bowel sounds Rectal Exam - Female: deferred Skin General skin exam: no rashes or lesions noted, turgor normal, skin not dry, no jaundice, No spider nevi and no striae Rashes: no rashes Nails: normal Neuro General: oriented to person, oriented to place and oriented to time Cranial nerves: Yes Equal, round and reactive pupils present and Yes Normal hearing present Speech: No Abnormal speech present Extrem General: Yes normal to inspection, No clubbing, No cyanosis and No edema Psych Appearance: grossly normal and well kempt Mental Status: mental status grossly normal Speech and movement: Normal speech and movement present Affect: normal affect Attitude: cooperative Thought process: Normal thought process present and not confabulating Thought content: Normal thought content present Insight: Fair insight present (Psych) Judgement: Fair judgement present (Psych) Assessment & Plan Assessment & Plan (1) Epigastric pain: Code(s): R10.13 - Epigastric pain Category: Medical (2) Pre-op examination: Code(s): Z01.818 - Encounter for other preprocedural examination Category: Medical Plan She has had epigastric pain for over year - hx of 4 years NSAIDS. She can't eat anything w/o getting severe pain just below the epigastric area. She also has severe GERD amie with spaghetti sauce. She only eats a little late in the after noon. The pain will last for a couple of hours. The pain is sharp midline and at times will feel cramping. It is localized and dose not radiate. No cic or diarrhea. She feels bloated all the time. She has an uncle with gastrits. Maternal grandmother with GB disease and cholecystectomy. Except for her ibuprofen use there are no other medication preceding this, no specific illness, no sick contacts. She is only on o2o 20mg qd need to increase to 40mg bid - consider carafate. Getting EGD/colonoscopy as she is screening due. Ashtma controlled no cardiac There are no prior problems with anesthesia or sedation.. No ID problems. No FHX of stomach or colon cancer or polyps Return office visit in 4 weeks to evaluate the medication. Orders: Orders EGD/Zenda Combo - GI Use Only Today R10.13 - Epigastric pain, Z01.818 - Encounter for other preprocedural examination H pylori Ag Stool Today R10.13 - Epigastric pain, Z01.818 - Encounter for other preprocedural examination Complete Blood Count Auto Diff Today R10.13 - Epigastric pain, Z01.818 - Encounter for other preprocedural examination US abdomen complete Today R10.13 - Epigastric pain Comprehensive Met. Panel Today R10.13 - Epigastric pain, Z01.818 - Encounter for other preprocedural examination Medications: New omeprazole 40 mg PO BID 60 caps 3RF 30 days Coding Level of Care Code New Pt Level 3 (87398) Diagnoses Epigastric pain R10.13 Pre-op examination Z01.818
[2023-11-13 10:05] VITALS: BP 106/63; PULSE 60; BMI 31.6
== END 2023-11-13 10:38 | disposition home or self-care (01) ==
PROVIDERS: PCP Internal Medicine; Visit Provider Nurse Practitioner
DX: R10.13 Epigastric pain (principal); Z01.818 Encounter for other preprocedural examination
CPT/HCPCS: 99203

== ENCOUNTER → 2023-11-13 09:55 | Outpatient (BNVA) | payer MEDICAID, SELFPAY | PROVIDERS: PCP Internal Medicine; Visit Provider Nurse Practitioner | DX: Z01.818 Encounter for other preprocedural examination (principal); R10.13 Epigastric pain; E65 Localized adiposity | CPT/HCPCS: 99202; 99212 ==

== ENCOUNTER 2023-11-20 10:05 | Outpatient (AMB) | payer MEDICAID, SELFPAY ==
[2023-11-20 10:22] VITALS: BMI 31.4
--- NOTE | 2023-11-20 10:22 | MHC.OFFVIS ---
Vital Signs 11/20/23 10:22 Height 5 ft 4 in Weight 183 lb BMI 31.4 Intake Visit Reasons: right knee Euflexxa gel injection #1 Intake Note: Franchesca is a 48 year patient who presents today with complaints of progressively worsening right knee pain. The patient sharp nature. Her pain has gotten worse last year in spite of continued non operative treatments. She has tried physical therapy exercises which aggravated her pain. She has also taken Tylenol and anti-inflammatory medicines which gave him minimal relief. She has had cortisone injections which gave him no relief. Allergies Penicillins [PENICILLINS] Allergy (Unknown, Verified 11/20/23 10:22) HIVES Medication List - Last Reconciled 11/21/23 by Ho Chahal MD acetaminophen ER 650 mg PO Q12H PRN albuterol sulfate 90 mcg/actuation 2 puffs inhalation Q6H PRN albuterol sulfate mg inhalation Q4H PRN budesonide-formoterol 160-4.5 mcg/actuation (Symbicort) 2 puffs inhalation BID cetirizine (Zyrtec) 10 mg PO DAILY PRN desloratadine 5 mg PO QAM duloxetine 20 mg PO BID epinephrine IM DIRECTED famotidine 40 mg PO DAILY fexofenadine 360 mg PO DAILY fluticasone propion-salmeterol 500-50 mcg/dose (Advair Diskus) 1 ea inhalation BID hydroxyzine HCl 25 mg PO QID PRN loratadine (Allergy Relief (loratadine)) 10 mg PO DAILY montelukast (Singulair) 10 mg PO BEDTIME naloxone 4 mg/actuation (Narcan) 4 mg intranasal Q2M PRN omalizumab (Xolair) 300 mg subcut Q4W omeprazole 40 mg PO BID 30 days pregabalin 75 mg PO BID PFSH Medical History Bilateral knee pain Lumbar back pain with radiculopathy affecting right lower extremity Chronic urticaria Surgical History H/O tubal ligation Hx of hand surgery (~2013) Family History Father Throat cancer Family/Other Breast cancer Social History (Updated 11/20/23 @ 10:23 by Cece Callahan) Alcohol intake: never Patient Tobacco Use Status: Current everyday Tobacco user Substance Use Type: Marijuana Current occupational status: unemployed Physical Exam Vital Signs: BMI result Body Mass Index 31.4 Const Other: Well-nourished well-developed very friendly female awake alert and oriented x3 in no acute distress Extrem Other: Bilateral lower extremity examination shows good capillary refill, no skin lesions noted, normal sensation light touch Right knee examination shows a minimal effusion, palpable crepitus with range of motion, pain with range of motion, no instability Office Procedures Joint Injection/Drain Joint Injection/Drain Primary Site: right knee Prep: site was prepped using aseptic technique Injected: 20 mg of (Euflexxa viscosupplementation) and 1% plain lidocaine Procedure: The patient tolerated the procedure well Coding 94191 - Large joint Procedure code (CPT) selection complete Results Reviewed Results Reviewed: X-rays of the patient's right knee show joint space narrowing, subchondral sclerosis, no acute bony abnormalities Assessment & Plan Assessment & Plan (1) Arthritis of right knee: Code(s): M17.11 - Unilateral primary osteoarthritis, right knee Category: Medical Plan Ms. Chauhan presents with right knee pain due to degenerative joint disease. I had lengthy discussion with the patient regarding the treatment options. The risks and benefits of a series of Euflexxa viscosupplementation injections were discussed at length with the patient. The patient wished to proceed. She tolerated the 1st injection well. She will continue with her home exercise program. She will follow up next week for her 2nd injection as scheduled. Feel free to call me at any time should questions regarding orthopedic management arise. I spent 20 minutes in reviewing the patient's records and imaging studies, seeing the patient and documenting in the medical record. Orders: Orders AMB Joint Injection/Aspiration 11/20/23 M17.11 - Unilateral primary osteoarthritis, right knee Coding Level of Care Code Est Pt Level 3 (82301) Diagnoses Arthritis of right knee M17.11 CPT Codes Coding - 77720 Large joint: 83585 - Large joint ([id number])
== END 2023-11-20 10:49 | disposition home or self-care (01) ==
PROVIDERS: PCP Nurse Practitioner Family; Visit Provider Orthopaedic Surgery
DX: M17.11 Unilateral primary osteoarthritis, right knee (principal)
CPT/HCPCS: 20610; 99213

== ENCOUNTER → 2023-11-20 10:05 | Outpatient (BNVA) | payer MEDICAID, SELFPAY | PROVIDERS: PCP Nurse Practitioner Family; Visit Provider Orthopaedic Surgery | DX: M17.11 Unilateral primary osteoarthritis, right knee (principal) | CPT/HCPCS: 20610; 99212; J7323 ==

== ENCOUNTER 2023-11-27 10:17 | Outpatient (AMB) | payer MEDICAID, SELFPAY ==
--- NOTE | 2023-11-27 10:21 | A.OFFVIS_ITS ---
Intake Visit Reasons: right knee Euflexxa Gel injection #2, Left knee pain Intake Note: Franchesca is a 48 year old female who presents to the office today for her #2 right knee Euflexxa gel injection. The patient states that she has gotten very good relief from the 1st injection. Today she is most concerned with progressively worsening left knee pain. The patient's left knee pain has gotten worse over the last few years in spite of continued non operative treatments. She has tried and failed 3 months of home p hysical therapy exercises as well as anti-inflammatory medicines and Tylenol. She has had cortisone injections in the past which gave her no relief. The patient has failed the last 6 weeks of conservative treatment. She wishes to hold off on surgery for as long as possible. Allergies Penicillins [PENICILLINS] Allergy (Unknown, Verified 11/27/23 10:21) HIVES Medication List - Last Reconciled 11/27/23 by Ho Chahal MD acetaminophen ER 650 mg PO Q12H PRN albuterol sulfate 90 mcg/actuation 2 puffs inhalation Q6H PRN albuterol sulfate mg inhalation Q4H PRN budesonide-formoterol 160-4.5 mcg/actuation (Symbicort) 2 puffs inhalation BID cetirizine (Zyrtec) 10 mg PO DAILY PRN desloratadine 5 mg PO QAM duloxetine 20 mg PO BID epinephrine IM DIRECTED famotidine 40 mg PO DAILY fexofenadine 360 mg PO DAILY fluticasone propion-salmeterol 500-50 mcg/dose (Advair Diskus) 1 ea inhalation BID hydroxyzine HCl 25 mg PO QID PRN loratadine (Allergy Relief (loratadine)) 10 mg PO DAILY montelukast (Singulair) 10 mg PO BEDTIME naloxone 4 mg/actuation (Narcan) 4 mg intranasal Q2M PRN omalizumab (Xolair) 300 mg subcut Q4W omeprazole 40 mg PO BID 30 days pregabalin 75 mg PO BID PFSH Medical History Bilateral knee pain Lumbar back pain with radiculopathy affecting right lower extremity Chronic urticaria Surgical History H/O tubal ligation Hx of hand surgery (~2013) Family History Father Throat cancer Family/Other Breast cancer Social History (Updated 11/20/23 @ 10:23 by SHERLEY Pena) Alcohol intake: never Patient Tobacco Use Status: Current everyday Tobacco user Substance Use Type: Marijuana Current occupational status: unemployed Physical Exam Const Other: Well-nourished well-developed very friendly female awake alert and oriented x3 in no acute distress Extrem Other: Bilateral lower extremity examination shows good capillary refill, no skin lesions noted, normal sensation light touch Bilateral knee examination shows minimal effusions, palpable crepitus with range of motion, pain with range of motion, no instability Office Procedures Joint Injection/Drain Joint Injection/Drain Primary Site: right knee Prep: site was prepped using aseptic technique Injected: 20 mg of (Euflexxa viscosupplementation) and 1% plain lidocaine Procedure: The patient tolerated the procedure well Coding 77611 - Large joint Procedure code (CPT) selection complete Results Reviewed Results Reviewed: X-rays of the patient's left knee show joint space narrowing, subchondral sclerosis, no acute bony abnormalities Assessment & Plan Assessment & Plan (1) Arthritis of right knee: Code(s): M17.11 - Unilateral primary osteoarthritis, right knee Category: Medical (2) Left knee pain: Code(s): M25.562 - Pain in left knee Category: Medical (3) Arthritis of left knee: Code(s): M17.12 - Unilateral primary osteoarthritis, left knee Category: Medical Plan Ms. Chauhan presents with bilateral knee pains due to degenerative joint disease. The risks and benefits of a 2nd Euflexxa injection for her right knee were discussed at length with the patient. The patient wished to proceed. She tolerated the injection well. The patient also has progressively worsening left knee pain due to degenerative joint disease. She wishes to hold off on surgery for as long as possible. She has not gotten good relief from cortisone injections in the past. Thus, I will see whether not her insurance company will cover a series of 3 Euflexxa injections for her left knee as well. She will follow up next week as scheduled. Feel free to call me at any time should questions regarding her orthopedic management arise. I spent 20 minutes in reviewing the patient's records and imaging studies, seeing the patient and documenting in the medical record. Orders: Orders AMB Joint Injection/Aspiration Today M17.11 - Unilateral primary osteoarthritis, right knee Coding Level of Care Code Est Pt Level 3 (81521) Diagnoses Arthritis of right knee M17.11 Left knee pain M25.562 Arthritis of left knee M17.12 CPT Codes Coding - 01054 Large joint: 63547 - Large joint ([id number])
== END 2023-11-27 10:53 | disposition home or self-care (01) ==
PROVIDERS: PCP Nurse Practitioner Family; Visit Provider Orthopaedic Surgery
DX: M17.0 Bilateral primary osteoarthritis of knee (principal)
CPT/HCPCS: 20610; 99213

== ENCOUNTER → 2023-11-27 10:17 | Outpatient (BNVA) | payer MEDICAID, SELFPAY | PROVIDERS: PCP Nurse Practitioner Family; Visit Provider Orthopaedic Surgery | DX: M17.11 Unilateral primary osteoarthritis, right knee (principal); M17.12 Unilateral primary osteoarthritis, left knee; M25.562 Pain in left knee | CPT/HCPCS: 20610; 99212; J7323 ==

== ENCOUNTER 2023-12-04 10:24 | Outpatient (AMB) | payer MEDICAID, SELFPAY ==
[2023-12-04 10:28] VITALS: BMI 31.4
--- NOTE | 2023-12-04 10:28 | MHC.OFFVIS ---
Vital Signs 12/04/23 10:28 Height 5 ft 4 in Weight 183 lb BMI 31.4 Intake Visit Reasons: Right Knee #3 & Left Knee #1 Euflexxa Intake Note: Franchesca is a 48 year old female who presents today for Right Knee Euflexxa Injection #3 . This is her Final Injection of the series for the right knee. We also submitted for Left Knee Euflexxa which was approved, we will start the Left knee Euflexxa #1. The patient describes her knee pains as sharp in nature. She has had cortisone injections in the past which gave her minimal relief. She has also tried Tylenol and anti-inflammatory medicines which gave her minimal relief. She would like to hold off on surgery for as long as possible. Allergies Penicillins [PENICILLINS] Allergy (Unknown, Verified 11/27/23 10:21) HIVES Medication List - Last Reconciled 12/04/23 by Ho Chahal MD acetaminophen ER 650 mg PO Q12H PRN albuterol sulfate 90 mcg/actuation 2 puffs inhalation Q6H PRN albuterol sulfate mg inhalation Q4H PRN budesonide-formoterol 160-4.5 mcg/actuation (Symbicort) 2 puffs inhalation BID cetirizine (Zyrtec) 10 mg PO DAILY PRN desloratadine 5 mg PO QAM duloxetine 20 mg PO BID epinephrine IM DIRECTED famotidine 40 mg PO DAILY fexofenadine 360 mg PO DAILY fluticasone propion-salmeterol 500-50 mcg/dose (Advair Diskus) 1 ea inhalation BID hydroxyzine HCl 25 mg PO QID PRN loratadine (Allergy Relief (loratadine)) 10 mg PO DAILY montelukast (Singulair) 10 mg PO BEDTIME naloxone 4 mg/actuation (Narcan) 4 mg intranasal Q2M PRN omalizumab (Xolair) 300 mg subcut Q4W omeprazole 40 mg PO BID 30 days pregabalin 75 mg PO BID PFSH Medical History Bilateral knee pain Lumbar back pain with radiculopathy affecting right lower extremity Chronic urticaria Surgical History H/O tubal ligation Hx of hand surgery (~2013) Family History Father Throat cancer Family/Other Breast cancer Social History (Updated 11/20/23 @ 10:23 by SHERLEY Pena) Alcohol intake: never Patient Tobacco Use Status: Current everyday Tobacco user Substance Use Type: Marijuana Current occupational status: unemployed Physical Exam Vital Signs: BMI result Body Mass Index 31.4 Const Other: Well-nourished well-developed very friendly female awake alert and oriented x3 in no acute distress Extrem Other: Bilateral lower extremity examination shows good capillary refill, no skin lesions noted, normal sensation light touch Bilateral knee examination shows minimal effusions, palpable crepitus with range of motion, pain with range of motion, no instability Office Procedures Joint Injection/Drain Joint Injection/Drain Primary Site: left knee Prep: site was prepped using aseptic technique Injected: 20 mg of (Euflexxa viscosupplementation injection #1) and 1% plain lidocaine Procedure: The patient tolerated the procedure well Coding 07570 - Large joint Procedure code (CPT) selection complete Joint Injection/Drain Joint Injection/Drain Primary Site: right knee Prep: site was prepped using aseptic technique Injected: 20 mg of (Euflexxa viscosupplementation injection #1) and 1% plain lidocaine Procedure: The patient tolerated the procedure well Coding 78112 - Large joint Procedure code (CPT) selection complete Results Reviewed Results Reviewed: X-rays of the patient's bilateral knee show joint space narrowing, subchondral sclerosis, no acute bony abnormalities Assessment & Plan Assessment & Plan (1) Arthritis of left knee: Code(s): M17.12 - Unilateral primary osteoarthritis, left knee Category: Medical (2) Arthritis of right knee: Code(s): M17.11 - Unilateral primary osteoarthritis, right knee Category: Medical Plan Ms. Chauhan presents with bilateral knee pains due to degenerative joint disease. I had a lengthy discussion with the patient regarding the treatment options. She wishes to hold off on surgery for as long as possible. I agree with this plan. The risks and benefits of a 3rd right knee Euflexxa injection were discussed at length with the patient. The patient wished to proceed. She tolerated the injection well. The risks and benefits of the 1st left knee Euflexxa injection were discussed at length with the patient. The patient wished to proceed. She tolerated the injection well. She will continue with her home exercise program. She will follow up next week as scheduled. Feel free to call me at any time should questions regarding her orthopedic management arise. I spent 21 minutes in reviewing the patient's records and imaging studies, seeing the patient and documenting in the medical record. Orders: Orders AMB Joint Injection/Aspiration Today M17.12 - Unilateral primary osteoarthritis, left knee AMB Joint Injection/Aspiration Today M17.11 - Unilateral primary osteoarthritis, right knee Coding Level of Care Code Est Pt Level 3 (29373) Diagnoses Arthritis of left knee M17.12 Arthritis of right knee M17.11 CPT Codes Coding - 31819 Large joint: 35917 - Large joint ([id number]) Coding - 91906 Large joint: 50314 - Large joint ([id number])
== END 2023-12-04 11:10 | disposition home or self-care (01) ==
PROVIDERS: PCP Nurse Practitioner Family; Visit Provider Orthopaedic Surgery
DX: M17.0 Bilateral primary osteoarthritis of knee (principal)
CPT/HCPCS: 20610; 99213

== ENCOUNTER → 2023-12-04 10:24 | Outpatient (BNVA) | payer MEDICAID, SELFPAY | PROVIDERS: PCP Nurse Practitioner Family; Visit Provider Orthopaedic Surgery | DX: M17.0 Bilateral primary osteoarthritis of knee (principal) | CPT/HCPCS: 20610; 99212; J7323 ==

== ENCOUNTER 2023-12-11 13:56 | Outpatient (AMB) | payer MEDICAID, SELFPAY ==
--- NOTE | 2023-12-11 14:02 | A.OFFVIS_ITS ---
Intake Visit Reasons: Inj- Left Knee Euflexxa #2 Intake Note: Franchesca is a 48 year old female who presents to the office today for a second Left knee Euflexxa injection. She states that she got mild relief from the 1st injection. She continues with her home exercise program. Allergies Penicillins [PENICILLINS] Allergy (Unknown, Verified 12/11/23 14:02) HIVES Medication List - Last Reconciled 12/11/23 by Ho Chahal MD acetaminophen ER 650 mg PO Q12H PRN albuterol sulfate 90 mcg/actuation 2 puffs inhalation Q6H PRN albuterol sulfate mg inhalation Q4H PRN budesonide-formoterol 160-4.5 mcg/actuation (Symbicort) 2 puffs inhalation BID cetirizine (Zyrtec) 10 mg PO DAILY PRN desloratadine 5 mg PO QAM duloxetine 20 mg PO BID epinephrine IM DIRECTED famotidine 40 mg PO DAILY fexofenadine 360 mg PO DAILY fluticasone propion-salmeterol 500-50 mcg/dose (Advair Diskus) 1 ea inhalation BID hydroxyzine HCl 25 mg PO QID PRN loratadine (Allergy Relief (loratadine)) 10 mg PO DAILY montelukast (Singulair) 10 mg PO BEDTIME naloxone 4 mg/actuation (Narcan) 4 mg intranasal Q2M PRN omalizumab (Xolair) 300 mg subcut Q4W omeprazole 40 mg PO BID 30 days pregabalin 75 mg PO BID PFSH Medical History Bilateral knee pain Lumbar back pain with radiculopathy affecting right lower extremity Chronic urticaria Surgical History H/O tubal ligation Hx of hand surgery (~2013) Family History Father Throat cancer Family/Other Breast cancer Social History (Updated 11/20/23 @ 10:23 by SHERLEY Pena) Alcohol intake: never Patient Tobacco Use Status: Current everyday Tobacco user Substance Use Type: Marijuana Current occupational status: unemployed Physical Exam Extrem Other: Left knee examination shows a minimal effusion, palpable crepitus with range of motion, pain with range of motion, no instability Office Procedures Joint Injection/Drain Joint Injection/Drain Primary Site: left knee Prep: site was prepped using aseptic technique Injected: 20 mg of (Euflexxa viscosupplementation) and 1% plain lidocaine Procedure: The patient tolerated the procedure well Coding - Large joint Procedure code (CPT) selection complete Assessment & Plan Assessment & Plan (1) Arthritis of left knee: Code(s): M17.12 - Unilateral primary osteoarthritis, left knee Category: Medical Plan Ms. Chauhan presents with left knee pain due to degenerative joint disease. The risks and benefits of a 2nd Euflexxa viscosupplementation injection were discussed at length with the patient. The patient wished to proceed. She tolerated the injection well. She will continue with her home exercise program. She will follow up next week as scheduled. Feel free to call me at any time should questions regarding her orthopedic management arise. Orders: Orders AMB Joint Injection/Aspiration Today M17.12 - Unilateral primary osteoarthriti s, left knee Coding Level of Care Code Procedure Only Diagnoses Arthritis of left knee M17.12 CPT Codes Coding - Large joint: 96948 - Large joint ([id number])
== END 2023-12-11 14:22 | disposition home or self-care (01) ==
PROVIDERS: PCP Nurse Practitioner Family; Visit Provider Orthopaedic Surgery
DX: M17.12 Unilateral primary osteoarthritis, left knee (principal)
CPT/HCPCS: 20610

== ENCOUNTER → 2023-12-11 13:56 | Outpatient (BNVA) | payer MEDICAID, SELFPAY | PROVIDERS: PCP Nurse Practitioner Family; Visit Provider Orthopaedic Surgery | DX: M17.12 Unilateral primary osteoarthritis, left knee (principal) | CPT/HCPCS: 20610; J7323 ==

== ENCOUNTER 2023-12-18 08:42 | Outpatient (AMB) | payer MEDICAID, SELFPAY ==
--- NOTE | 2023-12-18 08:44 | MHC.OFFVIS ---
Intake Visit Reasons: Inj- Left Knee Euflexxa # 3 Intake Note: Franchesca is a 48 year old female who presents to the office today for a Left Knee Euflexxa gel injection #3. She states that she has gotten fairly good relief from the 1st 2 injections. She denies any fevers or chills. She continues with her home exercise program. Allergies Penicillins [PENICILLINS] Allergy (Unknown, Verified 12/18/23 08:44) HIVES Medication List - Last Reconciled 12/19/23 by Ho Chahal MD acetaminophen ER 650 mg PO Q12H PRN albuterol sulfate 90 mcg/actuation 2 puffs inhalation Q6H PRN albuterol sulfate mg inhalation Q4H PRN budesonide-formoterol 160-4.5 mcg/actuation (Symbicort) 2 puffs inhalation BID cetirizine (Zyrtec) 10 mg PO DAILY PRN desloratadine 5 mg PO QAM duloxetine 20 mg PO BID epinephrine IM DIRECTED famotidine 40 mg PO DAILY fexofenadine 360 mg PO DAILY fluticasone propion-salmeterol 500-50 mcg/dose (Advair Diskus) 1 ea inhalation BID hydroxyzine HCl 25 mg PO QID PRN loratadine (Allergy Relief (loratadine)) 10 mg PO DAILY montelukast (Singulair) 10 mg PO BEDTIME naloxone 4 mg/actuation (Narcan) 4 mg intranasal Q2M PRN omalizumab (Xolair) 300 mg subcut Q4W omeprazole 40 mg PO BID 30 days pregabalin 75 mg PO BID PFSH Medical History Bilateral knee pain Lumbar back pain with radiculopathy affecting right lower extremity Chronic urticaria Surgical History H/O tubal ligation Hx of hand surgery (~2013) Family History Father Throat cancer Family/Other Breast cancer Social History (Updated 11/20/23 @ 10:23 by SHERLEY Pena) Alcohol intake: never Patient Tobacco Use Status: Current everyday Tobacco user Substance Use Type: Marijuana Current occupational status: unemployed Physical Exam Extrem Other: Physical examination of the patient's left knee shows a minimal effusion, mild crepitus with range of motion, no instability Office Procedures Joint Injection/Drain Joint Injection/Drain Primary Site: left knee Prep: site was prepped using aseptic technique Injected: 20 mg of (Euflexxa viscosupplementation) and 1% plain lidocaine Procedure: The patient tolerated the procedure well Coding 65185 - Large joint Procedure code (CPT) selection complete Assessment & Plan Assessment & Plan (1) Arthritis of left knee: Code(s): M17.12 - Unilateral primary osteoarthritis, left knee Category: Medical Plan Ms. Chauhan presents with left knee pain due to degenerative joint disease. The risks and benefits of a 3rd Euflexxa viscosupplementation injection were discussed at length with the patient. The patient wished to proceed. She tolerated the injection well. She will continue with her activity modifications. She will follow up with me on an as-needed basis should her symptoms not plateau at an unacceptable level over the next few months. Feel free to call me at any time should questions regarding her orthopedic management arise. Orders: Orders AMB Joint Injection/Aspiration 12/18/23 M17.12 - Unilateral primary osteoarthritis, left knee Coding Level of Care Code Procedure Only Diagnoses Arthritis of left knee M17.12 CPT Codes Coding - 20227 Large joint: 13754 - Large joint ([id number])
== END 2023-12-18 09:06 | disposition home or self-care (01) ==
PROVIDERS: PCP Nurse Practitioner Family; Referring Provider Nurse Practitioner Family; Visit Provider Orthopaedic Surgery
DX: M17.12 Unilateral primary osteoarthritis, left knee (principal)
CPT/HCPCS: 20610

== ENCOUNTER → 2023-12-18 08:42 | Outpatient (BNVA) | payer MEDICAID, SELFPAY | PROVIDERS: PCP Nurse Practitioner Family; Visit Provider Orthopaedic Surgery | DX: M17.12 Unilateral primary osteoarthritis, left knee (principal) | CPT/HCPCS: 20610; J7323 ==

== ENCOUNTER 2024-02-11 12:45 | Outpatient (REF) | payer MEDICAID, SELFPAY ==
--- NOTE | ~2024-02-11 | XR_ITS ---
EXAMINATION: XR CHEST CLINICAL INFORMATION: Chest tightness. COMPARISON: None available. TECHNIQUE: 2 views of the chest were obtained. FINDINGS: Normal appearance of the cardiomediastinal silhouette. No focal consolidation, pleural effusion or pneumothorax. No acute osseous findings. Visualized upper abdomen is within normal limits. XR/XR chest 2V IMPRESSION: No acute cardiopulmonary findings. Electronically signed by: Erika Haile MD 03/02/2024 11:48 AM EDT
== END 2024-02-11 12:46 | disposition home or self-care (01) ==
LOC: HO.HHCX 12:45
PROVIDERS: Visit Provider Nurse Practitioner Family
DX: R07.89 Other chest pain (principal)
CPT/HCPCS: 71046

== ENCOUNTER 2024-02-12 12:43 | Outpatient (AMB) | payer MEDICAID, SELFPAY ==
--- NOTE | 2024-02-12 12:48 | A.OFFVIS_ITS ---
Vital Signs 02/12/24 12:57 Height 5 ft 4 in Weight 180 lb BMI 30.9 Intake Visit Reasons: New prob bilat hand/wrist pain Intake Note: Franchesca is a 48 yo right hand dominant female who presents today with a new problem pertaining to bilateral hand pain that began years back. 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 She also reports RIGHT 1st, 2nd, and 3rd finger lock on as well as LEFT 2nd finger lock on. Has not tried braces, steroid injections, PT, OT recently. Denies any prior injuries. Patient states she had a LEFT carpal tunnel release and LEFT cubital tunnel release in [place] around 2020. Left CTS positive on EMG, at the time. She also has Kienb?ck's disease on the LEFT hand for which she had a procedure done by [facility] back in . Allergies Penicillins [PENICILLINS] Allergy (Unknown, Verified 02/12/24 13:02) HIVES HPI HPI New prob bilat hand/wrist pain: Details: Franchesca is a 48 year old right hand dominant woman who presents with several complaints today. Her chief complaint is of painful locking of thumb, index, and middle fingers in both hands.. She says with gripping activities such as holding her phone for prolonged periods her fingers get stuck , and demonstrates that they get stuck in a position of only slight flexion at the MCP joints in about 40 degrees of flexion at the PIP joints. She says they do not get stuck in full flexion. This is also painful when it occurs, and often occurs during activities such as holding her cell phone in a particular position for a long time. She also complains of more generalized bilateral hand pain, mostly in the mid palm area following along the line of the thenar crease. She as a hx of a left carpal tunnel release done in [place], sometime in 2020. She says she also had a pinched nerve in her neck managed along with her carpal tunnel release. She says following surgery her left hand sensation improved and is now still normal. She has a Hx of left wrist arthrodesis to treat her Kienbock's disease, done at [facility] in ~2013. It sounds like the arthrodesis followed and previous bone procedure, which was then followed by removal of those implants and then an arthrodesis. We have no records to review. [facility]LY [facility] Medical History Bilateral knee pain Lumbar back pain with radiculopathy affecting right lower extremity Chronic urticaria Surgical History H/O tubal ligation Hx of hand surgery (~2013) Family History Father Throat cancer Family/Other Breast cancer Social History (Updated 02/12/24 @ 13:02 by TREVOR Lomax) Alcohol intake: never Patient Tobacco Use Status: Current everyday Tobacco user Substance Use Type: Marijuana Current occupational status: unemployed Current occupation: rt handed Review of Systems Const All systems reviewed & are unremarkable except as noted in HPI and below Physical Exam Vital Signs: BMI result Body Mass Index 30.9 Const General: cooperative, healthy appearing and no acute distress Orientation/consciousness: patient oriented x3 HEENT Head: Yes normocephalic and Yes atraumatic Eyes EOM: EOMs intact bilaterally Resp Effort & Inspection: normal respiratory effort and able to speak in complete sentences Cardio Jugular venous distension: no JVD Skin General skin exam: turgor normal Rashes: no rashes Neuro General: patient oriented x3 Extrem Other: Evaluation of bilateral Upper Extremity: The patient is alert, oriented, and in no acute distress On the dorsal aspect of the left wrist she has a long longitudinal incision consistent with a wrist arthrodesis. On the volar aspect of the left wrist she has a longitudinal scar over the distal aspect of the FCR tendon, and she also has a another 2 cm scar over the radial styloid aspect of the 1st dorsal compartment. She also has a carpal tunnel scar which is barely visible on the left. She denied having any surgeries on the right side. Neuro: Normal sensation to the tips of all digits bilaterally No thenar or intrinsic wasting Good APB muscle belly firing and good finger cross Vascular: Cap refill brisk ROM: She can make a fist and extend all her digits No locking or catching No tenderness over any of the A1 pulleys. She demonstrates the position of her right thumb, index, and middle fingers locking while mostly extended, with some small IP, PIP, and DIP joint flexion She demonstrates where she gets pain in the mid-palm of her right hand, traveling from the distal aspect of the 1st webspace along the thenar crease towards the carpal tunnel. Not painful today in clinic. No swelling or erythema. Skin: No lacerations or abrasions. General: No Ecchymosis. No Erythema or evidence of infection. 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 Right hand cramping & pain Primarily of the thumb, index, and middle fingers No visible or palpable locking or catching in clinic This is her chief complaint today I educated her about this condition I discussed non-operative treatment options & activity modification I recommend she modify her activities which cause her cramping, such as prolonged or excessive gripping of objects like her phone She should take regular breaks from activities and perform gentle stretching exercises No operative intervention indicated today If her symptoms persist or increase in frequency or severity she can follow up to discuss teatment She is happy with the current plan. Otherwise she can follow up prn 2. Report of Left Keinbock's disease, S/P arthrodesis DOS: ~2013 at [facility] 3. History of left carpal tunnel release DOS: ~2020 in [place] With normal sensation Scribed for Erin Portillo MD by Doug Guzman medical and scientific illustrator, on 02/12/24 at 1:15 PM, EST. 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
[2024-02-12 12:57] VITALS: BMI 30.9
== END 2024-02-12 13:25 | disposition home or self-care (01) ==
PROVIDERS: PCP Nurse Practitioner Family; Referring Provider Nurse Practitioner Family; Visit Provider Orthopaedic Surgery
DX: R25.2 Cramp and spasm (principal); Z98.890 Other specified postprocedural states; M93.1 Kienbock's disease of adults
CPT/HCPCS: 99203

== ENCOUNTER → 2024-02-12 12:43 | Outpatient (BNVA) | payer MEDICAID, SELFPAY | PROVIDERS: PCP Nurse Practitioner Family; Visit Provider Orthopaedic Surgery | DX: R25.2 Cramp and spasm (principal); M93.1 Kienbock's disease of adults; Z98.890 Other specified postprocedural states | CPT/HCPCS: 99202 ==

== ENCOUNTER 2024-02-18 09:14 | Outpatient (REF) | payer MEDICAID, SELFPAY ==
--- NOTE | ~2024-02-18 | US_ITS ---
EXAMINATION: US ABDOMEN COMPLETE CLINICAL INFORMATION: Epigastric pain. COMPARISON: Ultrasound abdomen 02/07/2012. TECHNIQUE: Real-time imaging of the abdominal viscera. FINDINGS: PANCREAS: Normal. ABDOMINAL AORTA: The proximal, mid, and distal segments are normal in caliber. INFERIOR VENA CAVA: Visualized portions are normal. LIVER: Normal. The liver is normal in size. The liver contour is normal. Parenchymal echogenicity is normal. No focal hepatic lesion. There is no intrahepatic biliary duct dilatation seen. GALLBLADDER: Normal. The gallbladder is physiologically distended without evidence of stones, sludge, polyps, wall thickening or pericholecystic fluid. COMMON BILE DUCT: Normal in caliber measuring 0.2 cm in diameter. RIGHT KIDNEY: Normal. No hydronephrosis. No renal calculi or focal parenchymal lesions. The kidney measures 11.0 cm in maximum dimension. LEFT KIDNEY: Normal. No hydronephrosis. No renal calculi or focal parenchymal lesions. The kidney measures 10.4 cm in maximum dimension. SPLEEN: Normal. The spleen measures 7.9 cm in maximum dimension. FREE FLUID: None. US/US abdomen complete IMPRESSION: Negative exam. A cause for the patient's epigastric pain has not been found. Electronically signed by: Serafin Ross MD 02/22/2024 12:35 PM EDT
== END 2024-02-18 09:15 | disposition home or self-care (01) ==
LOC: HO.US 09:14
PROVIDERS: PCP Nurse Practitioner Family; Visit Provider Nurse Practitioner
DX: R10.13 Epigastric pain (principal)
CPT/HCPCS: 76700

== ENCOUNTER 2024-02-27 10:59 | Outpatient (AMB) | payer MEDICAID, SELFPAY ==
[2024-02-27 11:08] VITALS: BMI 30.9
--- NOTE | 2024-02-27 11:08 | A.OFFVIS_ITS ---
Vital Signs 02/27/24 11:08 Height 5 ft 4 in Weight 180 lb BMI 30.9 Intake Visit Reasons: Right knee pain Intake Note: Franchesca is a 48 year patient who presents today with complaints of progressively worsening bilateral knee pains, right greater than left. The patient describes her right knee pain as sharp in nature. Her pain has gotten worse last year in spite of continued non operative treatments. She has tried physical therapy exercises which aggravated her pain. She has also taken Tylenol and anti- inflammatory medicines which gave him minimal relief. She has had cortisone injections which gave him no relief. She has also had viscosupplementation injections which gave her temporary relief. Most of the pain is along the medial aspect of her right knee. She states that her right knee will give out several times per day. She has failed the last 6 weeks of conservative treatment. Allergies Penicillins [PENICILLINS] Allergy (Unknown, Verified 02/27/24 11:13) HIVES Medication List - Last Reconciled 02/27/24 by Ho Chahal MD acetaminophen ER 650 mg PO Q12H PRN albuterol sulfate 90 mcg/actuation 2 puffs inhalation Q6H PRN albuterol sulfate mg inhalation Q4H PRN bisacodyl (Dulcolax (bisacodyl)) 10 mg (2 x 5 mg) PO BEDTIME 2 days budesonide-formoterol 160-4.5 mcg/actuation (Symbicort) 2 puffs inhalation BID cetirizine (Zyrtec) 10 mg PO DAILY PRN desloratadine 5 mg PO QAM duloxetine 20 mg PO BID epinephrine IM DIRECTED famotidine 40 mg PO DAILY fexofenadine 360 mg PO DAILY fluticasone propion-salmeterol 500-50 mcg/dose (Advair Diskus) 1 ea inhalation BID hydroxyzine HCl 25 mg PO QID PRN loratadine (Allergy Relief (loratadine)) 10 mg PO DAILY montelukast (Singulair) 10 mg PO BEDTIME naloxone 4 mg/actuation (Narcan) 4 mg intranasal Q2M PRN omalizumab (Xolair) 300 mg subcut Q4W omeprazole 40 mg PO BID peg 3350-electrolytes 236-22.74-6.74 -5.86 gram (Golytely) 240 mL PO Q10M 1 day pregabalin 75 mg PO BID sucralfate (Carafate) 2 grams (2 x 1 gram) PO .q noon [facility] Medical History Bilateral knee pain Lumbar back pain with radiculopathy affecting right lower extremity Chronic urticaria Surgical History H/O tubal ligation Hx of hand surgery (~2013) Family History Father Throat cancer Family/Other Breast cancer Social History Alcohol intake: never Patient Tobacco Use Status: Current everyday Tobacco user Substance Use Type: Marijuana Current occupational status: unemployed Current occupation: rt handed Physical Exam Vital Signs: BMI result Body Mass Index 30.9 Const Other: Well-nourished well-developed very friendly female awake alert and oriented x3 in no acute distress Extrem Other: Bilateral lower extremity examination shows good capillary refill, no skin lesions noted, normal sensation light touch Right knee examination shows a minimal effusion, minimal crepitus with range of motion, tenderness along her medial and lateral joint lines, positive Tommy's test, no instability Results Reviewed Results Reviewed: Standing full weight-bearing x-rays of the patient's right knee show mild diffuse joint space narrowing, no acute bony abnormalities MRI of the patient's right knee shows mild diffuse degenerative changes as well as tearing of the medial and lateral menisci Assessment & Plan Assessment & Plan (1) Right knee pain: Code(s): M25.561 - Pain in right knee Category: Medical (2) Tear of medial meniscus of right knee: Code(s): S83.241A - Other tear of medial meniscus, current injury, right knee, initial encounter Category: Medical Plan Ms. Chauhan presents with progressively worsening right knee pain and mechanical symptoms due to tearing of her medial and lateral menisci. I had a lengthy discussion with the patient regarding the treatment options. At this point she has failed continued non operative treatments. The risks and benefits of right knee arthroscopic surgery were discussed at length with the patient. The patient wishes to proceed with surgery. Surgery will most likely involve right knee diagnostic arthroscopy with arthroscopic partial medial and lateral meniscectomies. The patient does understand that she may not get 100% relief of her symptoms depending on the severity of her degenerative changes. The patient will be scheduled for next available date. She will follow-up as instructed. Feel free to call me at any time should questions regarding her orthopedic management arise. I spent 22 minutes in reviewing the patient's records and imaging studies, seeing the patient and documenting in the medical record. Coding Level of Care Code Est Pt Level 3 (72671) Complex EM visit Add On G2211 Diagnoses Right knee pain M25.561 Tear of medial meniscus of right knee S83.241A
== END 2024-02-27 11:16 | disposition home or self-care (01) ==
PROVIDERS: PCP Nurse Practitioner Family; Referring Provider Nurse Practitioner Family; Visit Provider Orthopaedic Surgery
DX: S83.241A Other tear of medial meniscus, current injury, right knee, initial encounter (principal)
CPT/HCPCS: 99213

== ENCOUNTER → 2024-02-27 10:59 | Outpatient (BNVA) | payer MEDICAID, SELFPAY | PROVIDERS: PCP Nurse Practitioner Family; Visit Provider Orthopaedic Surgery | DX: S83.241D Other tear of medial meniscus, current injury, right knee, subsequent encounter (principal) | CPT/HCPCS: 99212 ==

== ENCOUNTER 2024-03-06 18:08 | Outpatient (REF) | payer MEDICAID, SELFPAY | END 2024-03-06 18:09 | disposition home or self-care (01) | LOC: HO.HHCLNP 18:08 | PROVIDERS: Visit Provider Emergency Medicine | DX: J02.9 Acute pharyngitis, unspecified (principal) | CPT/HCPCS: 87070 ==

== ENCOUNTER 2024-03-19 08:03 | Outpatient (AMB) | payer MEDICAID, SELFPAY ==
[2024-03-19 08:08] VITALS: BMI 30.9
--- NOTE | 2024-03-19 08:08 | MHC.OFFVIS ---
Vital Signs 03/19/24 08:08 Height 5 ft 4 in Weight 180 lb BMI 30.9 Intake Visit Reasons: Right knee pain and giving way Intake Note: Franchesca is a 48 year patient who presents today with complaints of progressively worsening bilateral knee pains, right greater than left. The patient describes her right knee pain as sharp in nature. Her pain has gotten worse last year in spite of continued non operative treatments. She has tried physical therapy exercises which aggravated her pain. She has also taken Tylenol and anti-inflammatory medicines which gave him minimal relief. She has had cortisone injections which gave him no relief. She has also had viscosupplementation injections which gave her temporary relief. Most of the pain is along the medial aspect of her right knee. She states that her right knee will give out several times per day. She has failed the last 6 weeks of conservative treatment. Allergies Penicillins [PENICILLINS] Allergy (Unknown, Verified 03/19/24 08:08) HIVES Medication List - Last Reconciled 03/19/24 by Ho Chahal MD acetaminophen ER 650 mg PO Q12H albuterol sulfate 90 mcg/actuation 2 puffs inhalation Q6H PRN albuterol sulfate mg inhalation Q4H PRN bisacodyl (Dulcolax (bisacodyl)) 10 mg (2 x 5 mg) PO BEDTIME 2 days budesonide-formoterol 160-4.5 mcg/actuation (Symbicort) 2 puffs inhalation BID epinephrine IM DIRECTED PRN famotidine 40 mg PO QNOON PRN loratadine (Allergy Relief (loratadine)) 10 mg PO DAILY PRN montelukast (Singulair) 10 mg PO BEDTIME omalizumab (Xolair) 300 mg subcut Q4W omeprazole 40 mg PO DAILY oxycodone 5 mg PO Q6H PRN peg 3350-electrolytes 236-22.74-6.74 -5.86 gram (Golytely) 240 mL PO Q10M 1 day sucralfate (Carafate) 2 grams (2 x 1 gram) PO .q noon PFSH Medical History Back pain GERD (gastroesophageal reflux disease) Depression Asthma Bilateral knee pain Lumbar back pain with radiculopathy affecting right lower extremity Chronic urticaria Surgical History H/O tubal ligation Hx of hand surgery (~2013) Family History Father Throat cancer Family/Other Breast cancer Social History Are you a primary memory care program resident to a significant other at home: No Do you presently have visiting nurse or other home services: No Alcohol intake: never Patient Tobacco Use Status: Current everyday Tobacco user Tobacco use type: Cigarette Cigarette Packs Per Day: 1.0 Cigarettes Per Day: 20.0 Substance Use Type: Marijuana Current occupational status: unemployed Current occupation: rt handed Physical Exam Vital Signs: BMI result Body Mass Index 30.9 Const Other: Well-nourished well-developed very friendly female awake alert and oriented x3 in no acute distress Extrem Other: Bilateral lower extremity examination shows good capillary refill, no skin lesions noted, normal sensation light touch Right knee examination shows a minimal effusion, minimal crepitus with range of motion, tenderness along her medial and lateral joint lines, no instability, positive Tommy's test Results Reviewed Results Reviewed: Standing full weight-bearing x-rays of the patient's right knee show mild diffuse joint space narrowing, no acute bony abnormalities MRI of the patient's right knee shows mild diffuse degenerative changes as well as tearing of the medial and lateral menisci, no acute bony abnormalities Assessment & Plan Assessment & Plan (1) Tear of medial meniscus of right knee: Code(s): S83.241A - Other tear of medial meniscus, current injury, right knee, initial encounter Category: Medical Plan Ms. Chauhan presents with progressively worsening right knee pain and mechanical symptoms due to early degenerative joint disease as well as tearing of her medial and lateral menisci. I had a lengthy discussion with the patient regarding the treatment options. At this point she has failed continued non operative treatments. The risks and benefits of right knee arthroscopic surgery were discussed at length with the. The patient wishes to proceed with surgery. Surgery will most likely involve right knee diagnostic arthroscopy with arthroscopic partial medial and lateral meniscectomies. The patient was given a prescription for oxycodone at her preoperative appointment. She will follow-up as instructed. Feel free to call any time should questions regarding her orthopedic management arise. I spent 22 minutes in reviewing the patient's records and imaging studies, seeing the patient and documenting in the medical record. Medications: New oxycodone Partial Fill upon patient request. 5 mg PO Q6H PRN 20 tabs 0RF pain Coding Level of Care Code Est Pt Level 3 (10751) Complex EM visit Add On G2211 Diagnoses Tear of medial meniscus of right knee S83.241L
== END 2024-03-19 08:32 | disposition home or self-care (01) ==
PROVIDERS: PCP Nurse Practitioner Family; Visit Provider Orthopaedic Surgery
DX: S83.241A Other tear of medial meniscus, current injury, right knee, initial encounter (principal)
CPT/HCPCS: 99214

== ENCOUNTER → 2024-03-19 08:03 | Outpatient (BNVA) | payer MEDICAID, SELFPAY | PROVIDERS: PCP Nurse Practitioner Family; Visit Provider Orthopaedic Surgery | DX: S83.241A Other tear of medial meniscus, current injury, right knee, initial encounter (principal); M25.562 Pain in left knee; X58.XXXA Exposure to other specified factors, initial encounter; Y93.9 Activity, unspecified; Y92.9 Unspecified place or not applicable; Y99.9 Unspecified external cause status | CPT/HCPCS: 99212 ==

== ENCOUNTER 2024-03-20 06:42 | Day surgery (SDC) | payer MEDICAID, SELFPAY ==
--- NOTE | 2024-03-11 | ECG_ITS ---
Test Reason : pre op Blood Pressure : / mmHG Vent. Rate : 055 BPM Atrial Rate : 055 BPM P-R Int : 140 ms QRS Dur : 076 ms QT Int : 418 ms P-R-T Axes : 062 060 050 degrees QTc Int : 399 ms Sinus bradycardia Otherwise normal ECG No previous ECGs available Referred By: Nimco Urias Electronically Signed By:CHELLE JUAREZ
--- NOTE | 2024-03-11 13:29 | P.CONAN_ITS ---
Documented by User: Nimco Urias NP 03/18/24 13:35 HPI - Anesthesia Eval Consult details Narrative: 48yo F for Right Knee Arthroscopy,with partial medial and lateral mencsicetomy, 03/20/24 No recent illness No CP/SOB with a lot of walking, sometimes using albuterol (1 x daily) Recent PCP visit pt reports EATON with CP. PCP referred to cardiology. Per convo b/w ortho and PCP, ok to proceed with knee scope without further cadiac w/u. 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 (Acute) History of carpal tunnel surgery of left wrist (Acute) Arthritis of left knee (Acute) Arthritis of right knee (Acute) Pre-op examination (Acute) Epigastric pain (Acute) Sacroiliitis (Acute) Chronic right SI joint pain (Acute) Right knee pain (Acute) Osteoarthritis of knees, bilateral (Acute) Discogenic low back pain (Acute) Left knee pain (Acute) Lumbar spondylosis (Acute) Bilateral knee pain (Acute) Lumbar back pain with radiculopathy affecting right lower extremity (Acute) Past Medical History Medical History Back pain GERD (gastroesophageal reflux disease) Depression Asthma Bilateral knee pain Lumbar back pain with radiculopathy affecting right lower extremity Chronic urticaria Family History Family History Father Throat cancer Family/Other Breast cancer Family history of problems with anesthesia: No Surgical History Surgical History H/O tubal ligation Hx of hand surgery (~2013) History of Problems with Anesthesia: No Social History Social History Are you a primary direct support professional caregiver to a significant other at home: No Do you presently have visiting nurse or other home services: No Alcohol intake: never Patient Tobacco Use Status: Current everyday Tobacco user Tobacco use type: Cigarette Cigarette Packs Per Day: 1.0 Cigarettes Per Day: 20.0 Use of substances other than those prescribed or required for medical reasons: Yes Substance Use Type: Marijuana Substance Use Frequency: Daily Have you been hit, kicked, punched, or otherwise hurt by someone within the past year? If so, by whom?: No Are you DNR?: No Advance Directives: No Advance Directives Information Provided: Yes Advance Directives on File: No Recently lost weight without trying: No Eating poorly because of decreased appetite: No Nutrition Risks: No Nutritional Risk Patient : No : No Poor oral hygiene: No Current occupational status: unemployed Current occupation: rt [employer] Meds Allergies Allergy/AdvReac Type Severity Reaction Status Date / Time Penicillins [PENICILLINS] Allergy Unknown HIVES Verified 03/20/24 07:12 Home Medications ?Medication ?Instructions ?Recorded ?Confirmed ?Last Taken ?Type acetaminophen 650 mg 650 mg PO Q12H 02/05/23 03/19/24 Unknown History tablet,extended release albuterol sulfate 90 mcg/actuation 2 puff inhalation Q6H PRN 02/05/23 03/19/24 03/19/24 History aerosol inhaler Shortness Of Breath Or Wheezing loratadine 10 mg tablet (Allergy 10 mg PO DAILY PRN Allergy Symptoms 02/05/23 03/19/24 Unknown History Relief (loratadine)) montelukast 10 mg tablet 10 mg PO BEDTIME 02/05/23 03/19/24 03/19/24 History (Singulair) omalizumab 150 mg subcutaneous 300 mg subcut Q4W 02/05/23 03/19/24 Unknown History solution (Xolair) albuterol sulfate 2.5 mg/3 mL mg inhalation Q4H PRN wheezing 06/13/23 03/19/24 Unknown History (0.083 %) solution for nebulization epinephrine 0.3 mg/0.3 mL IM DIRECTED PRN Allergic 06/13/23 03/19/24 Unknown History injection, auto-injector Reaction famotidine 40 mg tablet 40 mg PO QNOON PRN Acid Reflux 06/13/23 03/19/24 Unknown History budesonide-formoterol HFA 160 2 puff inhalation BID 11/13/23 03/19/24 Unknown History mcg-4.5 mcg/actuation aerosol inhaler (Symbicort) omeprazole 40 mg capsule,delayed 40 mg PO DAILY 03/11/24 03/19/24 03/19/24 Hi story release Exam Pertinent Lab Results Pertinent Lab Results: Lab Results 03/11/24 Range/Units 14:12 WBC 11.7 H (4.8-10.8) X10*3/uL RBC 4.55 (4.20-5.50) X10*6/uL Hgb 13.7 (12.0-16.0) g/dl Hct 41.1 (37.0-47.0) % MCV 90.3 (80.0-98.0) fL MCH 30.1 (27.0-33.0) pg MCHC 33.3 (31.0-35.0) g/dl RDW 13.2 (11.0-16.0) % Plt Count 250 (160-400) X10*3/uL MPV 11.4 (9.4-12.3) fL Absolute Nucleated RBC 0.000 (0.0-0.012) X10*3/uL Nucleated RBC % (auto) 0.0 (0.0-0.2) /100WBC Sodium 140 (135-145) mmol/L Potassium 4.2 (3.3-5.1) mmol/L Chloride 108 (96-108) mmol/L Carbon Dioxide 26 (22-29) mmol/L Anion Gap 10 L (12-20) BUN 13 (9-16) mg/dL Creatinine 0.74 (0.5-1.4) mg/dL Estim Creat Clear Calc 99.5 Estimated GFR > 60 Random Glucose 94 (60-115) mg/dL Calcium 9.7 D (8.4-10.2) mg/dL Narrative Narrative: EKG 03/2024 Vent. Rate : 055 BPM Atrial Rate : 055 BPM P-R Int : 140 ms QRS Dur : 076 ms QT Int : 418 ms P-R-T Axes : 062 060 050 degrees QTc Int : 399 ms Sinus bradycardia Otherwise normal ECG No previous ECGs available Airway Mallampati Class: I TM Dist: >3cm Neck ROM: Full Heart: RRR Lungs: CTAB Assessment and Plan Assessment Anesthesia Assessment: Anesthesia Plan Discussed, Smoking Cess. Discussed and PAT Visit Final Anesthetic Review Family History of Problems with Anesthesia: No History of Problems with Anesthesia: No Documented by User: Tori Borges MD 03/20/24 08:21 [facility] Past Medical History Medical History Back pain GERD (gastroesophageal reflux disease) Depression Asthma Bilateral knee pain Lumbar back pain with radiculopathy affecting right lower extremity Chronic urticaria Family History Family History Father Throat cancer Family/Other Breast cancer Surgical History Surgical History H/O tubal ligation Hx of hand surgery (~2013) Social History Social History Are you a primary direct support professional caregiver to a significant other at home: No Do you presently have visiting nurse or other home services: No Alcohol intake: never Patient Tobacco Use Status: Current everyday Tobacco user Tobacco use type: Cigarette Cigarette Packs Per Day: 1.0 Cigarettes Per Day: 20.0 Use of substances other than those prescribed or required for medical reasons: Yes Substance Use Type: Marijuana Substance Use Frequency: Daily Have you been hit, kicked, punched, or otherwise hurt by someone within the past year? If so, by whom?: No Are you DNR?: No Advance Directives: No Advance Directives Information Provided: Yes Advance Directives on File: No Recently lost weight without trying: No Eating poorly because of decreased appetite: No Nutrition Risks: No Nutritional Risk Patient : No : No Poor oral hygiene: No Current occupational status: unemployed Current occupation: rt handed Meds Allergies Allergy/AdvReac Type Severity Reaction Status Date / Time Penicillins [PENICILLINS] Allergy Unknown HIVES Verified 03/20/24 07:12 Home Medications ?Medication ?Instructions ?Recorded ?Confirmed ?Last Taken ?Type acetaminophen 650 mg 650 mg PO Q12H 02/05/23 03/19/24 Unknown History tablet,extended release albuterol sulfate 90 mcg/actuation 2 puff inhalation Q6H PRN 02/05/23 03/19/24 03/19/24 History aerosol inhaler Shortness Of Breath Or Wheezing loratadine 10 mg tablet (Allergy 10 mg PO DAILY PRN Allergy Symptoms 02/05/23 03/19/24 Unknown History Relief (loratadine)) montelukast 10 mg tablet 10 mg PO BEDTIME 02/05/23 03/19/24 03/19/24 History (Singulair) omalizumab 150 mg subcutaneous 300 mg subcut Q4W 02/05/23 03/19/24 Unknown History solution (Xolair) albuterol sulfate 2.5 mg/3 mL mg inhalation Q4H PRN wheezing 06/13/23 03/19/24 Unknown History (0.083 %) solution for nebulization epinephrine 0.3 mg/0.3 mL IM DIRECTED PRN Allergic 06/13/23 03/19/24 Unknown History injection, auto-injector Reaction famotidine 40 mg tablet 40 mg PO QNOON PRN Acid Reflux 06/13/23 03/19/24 Unknown History budesonide-formoterol HFA 160 2 puff inhalation BID 11/13/23 03/19/24 Unknown History mcg-4.5 mcg/actuation aerosol inhaler (Symbicort) omeprazole 40 mg capsule,delayed 40 mg PO DAILY 03/11/24 03/19/24 03/19/24 History release Assessment and Plan Final Anesthetic Review NPO: Yes ASA Class: III Final Preanesthetic Review: No Changes in Pt Med Stat, Meds/Allgs Chart Reviewed, Consent Obtained/Reviewed and Anes Risks/Benef Reviewed Patient Risk: Intermediate Procedure Risk: Low Anesthetic Plan Anesthetic Plan: GA
[2024-03-11 13:30] VITALS: BMI 30.1
[2024-03-11 13:33] VITALS: BP 109/55; PULSE 60; RESP 16; O2SAT 97
[2024-03-11 14:45] LABS: Hematocrit 41.1 % (37.0-47.0); Hemoglobin 13.7 g/dl (12.0-16.0); Mean Corpuscular HGB Conc 33.3 g/dl (31.0-35.0); Mean Corpuscular Hemoglobin 30.1 pg (27.0-33.0); Mean Corpuscular Volume 90.3 fL (80.0-98.0); Mean Platelet Volume 11.4 fL (9.4-12.3); Platelet Count 250 X10*3/uL (160-400); Red Blood Count 4.55 X10*6/uL (4.20-5.50); Red Cell Distribution Width 13.2 % (11.0-16.0); White Blood Count 11.7 X10*3/uL (4.8-10.8)
[2024-03-11 15:19] LABS: Anion Gap 10 (12-20); Blood Urea Nitrogen 13 mg/dL (9-16); Calcium 9.7 mg/dL (8.4-10.2); Carbon Dioxide 26 mmol/L (22-29); Chloride 108 mmol/L (96-108); Creatinine Clr Calc Pharmacy 99.5; Estimated Glomerular Filt Rate > 60; Glucose Random 94 mg/dL (60-115); Potassium 4.2 mmol/L (3.3-5.1); Sodium 140 mmol/L (135-145)
[2024-03-20] VITALS (9 sets, daily range): BP systolic 106–124; BP diastolic 53–74; PULSE 59–84; RESP 12–20; TEMP 36.6–36.8; O2SAT 97–99
[2024-03-20] MEDS: fentaNYL citrate/PF 100 MCG/2 ML VIAL 25 MCG IVPUSH ×4 (09:49→10:04)
--- NOTE | 2024-03-20 09:51 | PM.OP ---
Brief Operative Note Date of Service: 03/20/24 Pre-op diagnosis: Right knee lateral meniscus tear, right knee degenerative joint disease Post-op diagnosis: same Procedure: Right knee diagnostic arthroscopy with right knee arthroscopic partial lateral meniscectomy, right knee arthroscopic chondroplasty of the undersurface of the patella Implants: none Surgeon: Ho Chahal MD Anesthesia: GLMA Was an Academic Support Center Director used for this Procedure?: No Estimated blood loss (mL): 10 Pathology: none sent Condition: stable Disposition: PACU
--- NOTE | 2024-03-20 09:52 | P.OP_ITS ---
Operative Note Operative Note Date of Service: 03/20/24 Narrative: After the patient was identified as Franchesca Chauhan and her right knee was initialed by myself they were brought to the operating room where general anesthesia was induced by the anesthesiologist in routine fashion. Because of the patient's allergy to penicillin she was given 900 mg of IV clindamycin for infection prophylaxis. A formal time-out was completed. The patient's right lower extremity was prepped and draped in sterile fashion. Marcaine with epinephrine was injected into the planned incision sites as well as their right knee joint. A # 11 scalpel blade was used to make an anterolateral portal 1 cm proximal to the joint line and 1 cm lateral to the patellar tendon. Blunt trocar technique was used into the suprapatellar pouch with the knee in extension. Diagnostic arthroscopy showed multiple bands of thickened plica which would be excised at the end of the procedure. There were no loose bodies or abnormalities found in either the medial or lateral gutters. There were diffuse grade 2 degenerative changes of the undersurface of the patella as well as grade 1 degenerative changes of the trochlear groove. The patient's knee was flexed to 45 degrees and a valgus force was placed upon it. The medial compartment was entered. An anteromedial portal was made 1 cm proximal to the joint line and 1 cm medial to the patellar tendon. Probing of the medial meniscus showed no evidence of medial meniscus tearing. There were diffuse grade 1 degenerative changes of the medial femoral condyle as well as diffuse grade 1 degenerative changes of the medial tibial plateau. The patient's knee was then placed into a neutral position. There was no injury to the anterior cruciate ligament. The patient's knee was then placed into the figure of 4 position and the lateral compartment was entered. There were minimal degenerative changes of the lateral femoral condyle and lateral tibial plateau. There was a radial tear of the anterior horn of the lateral meniscus. A partial lateral meniscectomy was performed using the arthroscopic shaver. Following the partial meniscectomy the remainder of the meniscus tissue was stable. The patient's knee was once again brought into extension and the suprapatellar pouch was entered. The arthroscopic shaver and the ArthroCare Wand were used to excise the thickened bands of plica. The undersurface of the patella was then made smooth using the arthroscopic shaver. The articular surface of the trochlear groove was already smooth so no chondroplasty was indicated. The knee joint was irrigated and then drained. All arthroscopic instruments were re moved. The 2 portals were closed with 3-0 nylon interrupted suture. The knee joint was injected with Marcaine. Dry sterile dressing and Matteo bandages were placed over the patient's knee. The patient was awoken and extubated in the operating room. They were transferred to the recovery room in stable condition.
== END 2024-03-20 11:07 | disposition home or self-care (01) ==
PROVIDERS: Nurse Practitioner; PCP Nurse Practitioner Family; Visit Provider Orthopaedic Surgery
PROC: (CPT 29870; principal; 2024-03-20 09:00)
DX: S83.281A Other tear of lateral meniscus, current injury, right knee, initial encounter (principal); X58.XXXA Exposure to other specified factors, initial encounter; Y93.9 Activity, unspecified; Y92.9 Unspecified place or not applicable; Y99.9 Unspecified external cause status; M17.11 Unilateral primary osteoarthritis, right knee; M67.51 Plica syndrome, right knee; M25.561 Pain in right knee; K21.9 Gastro-esophageal reflux disease without esophagitis; J45.909 Unspecified asthma, uncomplicated; L50.8 Other urticaria; M54.16 Radiculopathy, lumbar region; F32.A Depression, unspecified; Z79.51 Long term (current) use of inhaled steroids; Z79.899 Other long term (current) drug therapy; Z88.0 Allergy status to penicillin; Z98.890 Other specified postprocedural states; F17.210 Nicotine dependence, cigarettes, uncomplicated; Z56.0 Unemployment, unspecified
CPT/HCPCS: 29881; 36415; 80048; 85027; 93005; J0131; J0171; J0736; J1100; J2003; J2250; J2405; J2704; J2795; J3010

== ENCOUNTER → 2024-03-20 06:42 | Outpatient (BNV) | payer MEDICAID, SELFPAY | PROVIDERS: PCP Nurse Practitioner Family; Visit Provider Orthopaedic Surgery | DX: S83.281A Other tear of lateral meniscus, current injury, right knee, initial encounter (principal) | CPT/HCPCS: 29881 ==

== ENCOUNTER 2024-03-26 13:16 | Outpatient (REF) | payer MEDICAID, SELFPAY ==
--- NOTE | 2024-03-26 | EMG_ITS ---
Chief complaint: Hand cramping, pain and numbness History left wrist arthrodesis for [place] disease, 2012. History of left CTR 2020. Reason for referral: Evaluate for Carpal Tunnel Syndrome Referred by: Dr. Erin Portillo Procedure done: Bilateral upper extremities NCS/EMG Precautions and/or limitations: None The limb temperature was monitored continuously and remained between 32-36 degrees C during the performance of the NCS. Nerve Conduction Studies Anti Sensory Summary Table ?Stim Site NR Onset (ms) Norm Onset (ms) Peak (ms) Norm Peak (ms) O-P Amp (?V) Norm O-P Amp Site1 Site2 Delta-0 (ms) Dist (cm) Evaristo (m/s) Norm Evaristo (m/s) Left Median Anti Sensory (2nd Digit) Wrist ? 2.3 2.8 <3.6 54.0 >10 Wrist 2nd Digit 2.3 14.0 61 Right Median Anti Sensory (2nd Digit) Wrist ? 2.2 3.2 <3.6 55.7 >10 Wrist 2nd Digit 2.2 14.0 64 Left Ulnar Anti Sensory (5th Digit) Wrist ? 2.1 2.7 <3.7 43.2 >15.0 Wrist 5th Digit 2.1 14.0 67 Right Ulnar Anti Sensory (5th Digit) Wrist ? 2.2 2.7 <3.7 40.9 >15.0 Wrist 5th Digit 2.2 14.0 64 Motor Summary Table ?Stim Site NR Onset (ms) Norm Onset (ms) O-P Amp (mV) Norm O-P Amp iAmp (mV) Amp (1st) (%) Site1 Site2 Delta-0 (ms) Dist (cm) Evaristo (m/s) Norm Evaristo (m/s) Left Median Motor (Abd Poll Brev) Wrist ? 2.9 <3.9 10.9 >4.5 12.4 100.0 Elbow Wrist 3.4 20.0 59 >45 Elbow ? 6.3 9.5 10.9 87.2 Right Median Motor (Abd Poll Brev) Wrist ? 3.4 <3.9 9.2 >4.5 10.5 100.0 Elbow Wrist 3.7 23.0 62 >45 Elbow ? 7.1 8.8 10.1 95.7 Left Ulnar Motor (Abd Dig Minimi) Wrist ? 2.5 <3.0 9.7 >5 11.3 100.0 B Elbow Wrist 2.8 18.5 66 >45 B Elbow ? 5.3 9.6 11.4 99.0 A Elbow B Elbow 1.4 0.0 >45 A Elbow ? 6.7 9.5 11.3 97.9 Right Ulnar Motor (Abd Dig Minimi) Wrist ? 2.4 <3.0 8.4 >5 9.9 100.0 B Elbow Wrist 3.2 20.0 63 >45 B Elbow ? 5.6 8.4 9.8 100.0 A Elbow B Elbow 1.3 0.0 >45 A Elbow ? 6.9 8.3 9.7 98.8 Comparison Summary Table ?Stim Site NR Peak (ms) Norm Peak (ms) P-T Amp (?V) Site1 Site2 Delta-P (ms) Norm Delta (ms) Left Median/Radial Dig I Comparison (Digit 1 - 10cm) Median ? 2.3 <2.9 71.9 Median Radial 0.0 Radial ? 2.3 <2.8 49.5 Right Median/Radial Dig I Comparison (Digit 1 - 10cm) Median ? 1.9 <2.9 10.5 Median Radial 0.3 Radial ? 2.2 <2.8 36.7 EMG ?Side Muscle Nerve Root Ins Act Fibs Psw Amp Dur Poly Recrt Int Pat Comment Right 1stDorInt Ulnar C8-T1 Nml Nml Nml Nml Nml 0 Nml Complete Right FlexCarRad Median C6-7 Nml Nml Nml Nml Nml 0 Nml Complete Right Biceps Musculocut C5-6 Nml Nml Nml Nml Nml 0 Nml Complete Right Triceps Radial C6-7-8 Nml Nml Nml Nml Nml 0 Nml Complete Right Deltoid Axillary C5-6 Nml Nml Nml Nml Nml 0 Nml Complete Left 1stDorInt Ulnar C8-T1 Nml Nml Nml Nml Nml 0 Nml Complete Left FlexCarRad Median C6-7 Nml Nml Nml Nml Nml 0 Nml Complete Left Biceps Musculocut C5-6 Nml Nml Nml Nml Nml 0 Nml Complete Left Triceps Radial C6-7-8 Nml Nml Nml Nml Nml 0 Nml Complete Left Deltoid Axillary C5-6 Nml Nml Nml Nml Nml 0 Nml Complete FINDINGS: All motor and sensory nerves tested showed normal latencies, amplitudes and conduction velocities. Concentric needle EMG was performed in selected muscles of the upper extremity. Study did not reveal signs of electric abnormalities as shown in the table above. IMPRESSION: 1. This is a normal study. 2. There is no electrodiagnostic evidence for median neuropathy, ulnar neuropathy, brachial plexopathy, or cervical radiculopathy. Thank you for your kind referral. Lynn Vasquez MD, EMIR Board Certified, [place] [employer] and [employer] (ABPMR) Board Certified, [place] Board [employer] Electro[employer]ostic [employer] (ABEM) CODIN [phone] x 2 MTDD
[2024-03-26 13:53] LABS: MANUAL DIFF FLAG NO
[2024-03-26 14:07] LABS: Basophils Percent Auto 0.4 % (0-2); Eosinophils Absolute Auto 0.3 X10*3/uL (0.0-0.4); Eosinophils Percent Auto 3.1 % (0-4); Hematocrit 44.2 % (37.0-47.0); Hemoglobin 14.4 g/dl (12.0-16.0); Imm Gran Abs Auto 0.05 X10*3/uL (0.00-0.03); Imm Gran Pct Auto 0.5 % (0.0-0.4); Lymphocytes Absolute Auto 1.9 X10*3/uL (1.2-4.9); Lymphocytes Percent Auto 17.6 % (20-40); Mean Corpuscular HGB Conc 32.6 g/dl (31.0-35.0); Mean Corpuscular Hemoglobin 29.5 pg (27.0-33.0); Mean Corpuscular Volume 90.6 fL (80.0-98.0); Mean Platelet Volume 11.2 fL (9.4-12.3); Monocytes Absolute Auto 0.8 X10*3/uL (0.1-1.2); Monocytes Percent Auto 6.9 % (2-11); Neutrophils Absolute Auto 7.8 x10*3/uL (2.0-8.3); Neutrophils Percent Auto 71.5 % (45-73); Platelet Count 274 X10*3/uL (160-400); Red Blood Count 4.88 X10*6/uL (4.20-5.50); Red Cell Distribution Width 13.8 % (11.0-16.0); White Blood Count 10.9 X10*3/uL (4.8-10.8)
[2024-03-26 14:34] LABS: Alanine Aminotransferase 16 U/L (0-31); Albumin Level 3.9 g/dL (3.5-5.0); Alkaline Phosphatase 77 U/L (39-117); Anion Gap 9 (12-20); Aspartate Amino Transferase 19 U/L (5-31); Bilirubin Total 0.2 mg/dL (0.0-1.0); Blood Urea Nitrogen 10 mg/dL (9-16); Calcium 9.6 mg/dL (8.4-10.2); Carbon Dioxide 29 mmol/L (22-29); Chloride 106 mmol/L (96-108); Estimated Glomerular Filt Rate > 60; Glucose Random 97 mg/dL (60-115); Potassium 4.1 mmol/L (3.3-5.1); Sodium 140 mmol/L (135-145); Total Protein 6.5 g/dL (6.5-8.0)
== END 2024-03-26 13:17 | disposition home or self-care (01) ==
LOC: HO.NEURO 13:16
PROVIDERS: Absent Provider Nurse Practitioner; PCP Nurse Practitioner Family; Visit Provider Orthopaedic Surgery
DX: Z01.818 Encounter for other preprocedural examination (principal); R10.13 Epigastric pain; R20.0 Anesthesia of skin; R20.2 Paresthesia of skin
CPT/HCPCS: 36415; 80053; 85025; 95886; 95911

== ENCOUNTER → 2024-03-26 13:39 | Outpatient (BNV) | payer MEDICAID, SELFPAY | PROVIDERS: Absent Provider Nurse Practitioner; PCP Nurse Practitioner Family; Visit Provider Physical Medicine & Rehabilitation | DX: R20.2 Paresthesia of skin (principal); R20.0 Anesthesia of skin; M79.641 Pain in right hand; M79.642 Pain in left hand | CPT/HCPCS: 95886; 95911 ==

== ENCOUNTER 2024-04-02 09:06 | Outpatient (REF) | payer MEDICAID, SELFPAY | END 2024-04-02 09:07 | disposition home or self-care (01) | LOC: HO.LNP 09:06 | PROVIDERS: Nurse Practitioner; PCP Nurse Practitioner Family; Visit Provider Physician Assistant | DX: Z01.818 Encounter for other preprocedural examination (principal); R10.13 Epigastric pain; M25.561 Pain in right knee; R20.0 Anesthesia of skin; M23.51 Chronic instability of knee, right knee; M17.12 Unilateral primary osteoarthritis, left knee; S83.241D Other tear of medial meniscus, current injury, right knee, subsequent encounter; X58.XXXD Exposure to other specified factors, subsequent encounter; Z98.890 Other specified postprocedural states | CPT/HCPCS: 87338; 99212 ==

== ENCOUNTER 2024-04-02 09:06 | Outpatient (AMB) | payer MEDICAID, SELFPAY ==
--- NOTE | 2024-04-02 09:12 | MHC.OFFVIS ---
Vital Signs 04/02/24 09:13 Height 5 ft 5 in Weight 176 lb BMI 29.3 Intake Visit Reasons: PO-Rt Knee 03/20 Intake Note: Franchesca a 48 year old female who presents today for a post operative of right knee on 03/20/24 Patient reports her knee has been giving out every time she walks. She has soreness mostly located on the lateral side. Allergies Penicillins [PENICILLINS] Allergy (Unknown, Verified 04/02/24 09:16) HIVES Medication List - Last Reconciled 04/02/24 by Dixie Alvarez PA-C acetaminophen ER 650 mg PO Q12H albuterol sulfate 90 mcg/actuation 2 puffs inhalation Q6H PRN albuterol sulfate mg inhalation Q4H PRN bisacodyl (Dulcolax (bisacodyl)) 10 mg (2 x 5 mg) PO BEDTIME 2 days budesonide-formoterol 160-4.5 mcg/actuation (Symbicort) 2 puffs inhalation BID epinephrine IM DIRECTED PRN famotidine 40 mg PO QNOON PRN loratadine (Allergy Relief (loratadine)) 10 mg PO DAILY PRN montelukast (Singulair) 10 mg PO BEDTIME omalizumab (Xolair) 300 mg subcut Q4W omeprazole 40 mg PO DAILY oxycodone 5 mg PO Q6H PRN peg 3350-electrolytes 236-22.74-6.74 -5.86 gram (Golytely) 240 mL PO Q10M 1 day sucralfate (Carafate) 2 grams (2 x 1 gram) PO .q noon HPI HPI PO-Rt Knee 03/20 DR: Details: 48-year-old female who returns to the office today for post-op right knee , 03/20/24, with Dr. Chahal. She continues to have pain and soreness at the lateral aspect of her knee that is aggravated with going downstairs, ambulation and bending. She also reports she has numbness and her knee gives out if she bends while ambulating. She takes Tylenol as needed. [facility] Medical History Back pain GERD (gastroesophageal reflux disease) Depression Asthma Bilateral knee pain Lumbar back pain with radiculopathy affecting right lower extremity Chronic urticaria Surgical History H/O tubal ligation Hx of hand surgery (~2013) Family History Father Throat cancer Family/Other Breast cancer Social History Are you a primary emergency care attendant to a significant other at home: No Do you presently have visiting nurse or other home services: No Alcohol intake: never Patient Tobacco Use Status: Current everyday Tobacco user Tobacco use type: Cigarette Cigarette Packs Per Day: 1.0 Cigarettes Per Day: 20.0 Substance Use Type: Marijuana Current occupational status: unemployed Current occupation: rt handed Review of Systems Const All systems reviewed & are unremarkable except as noted in HPI and below Physical Exam Vital Signs: BMI result Body Mass Index 29.3 Extrem Other: Right knee: Incision is clean, dry and intact. No redness or drainage. ROM is 0-90 degrees. Calf supple, nontender. NVI. Results Reviewed Results Reviewed: Date of Service: 03/20/24 Pre-op diagnosis: Right knee lateral meniscus tear, right knee degenerative joint disease Post-op diagnosis: same Procedure: Right knee diagnostic arthroscopy with right knee arthroscopic partial lateral meniscectomy, right knee arthroscopic chondroplasty of the undersurface of the patella Implants: none Surgeon: Ho Chahal MD Assessment & Plan Assessment & Plan (1) Tear of medial meniscus of right knee: Code(s): S83.241A - Other tear of medial meniscus, current injury, right knee, initial encounter Category: Medical (2) Patellofemoral arthritis of left knee: Code(s): M17.12 - Unilateral primary osteoarthritis, left knee Category: Medical Plan Sutures removed today, steri strips applied. I did put an order for physical therapy and recommend her to avoid any type of deep bending, kneeling, pivoting or squatting for the next 6 weeks to allow her symptoms to improve. She cannot take anti-inflammatories as she has GI upset therefore he will take Tylenol as needed. I would like to see her back in [address] Chahal, sooner if needed. Orders: Orders PT Evaluation and Treatment Today M17.12 - Unilateral primary osteoarthritis, left knee, S83.241A - Other tear of medial meniscus, current injury, right knee, initial encounter Patient Instructions: Scribed for Dixie Alvarez PA-C, by Mariano Maier medical logistics specialist, on 04/02/2024 at 9:30 AM EST.? I, Dixie Alvarez PA-C, have personally reviewed and agree with the information entered by the scribe. Coding Level of Care Code Global (71001) Diagnoses Tear of medial meniscus of right knee S83.241A Patellofemoral arthritis of left knee M17.12
[2024-04-02 09:13] VITALS: BMI 29.3
== END 2024-04-02 10:01 | disposition home or self-care (01) ==
PROVIDERS: PCP Nurse Practitioner Family; Visit Provider Physician Assistant
DX: S83.241A Other tear of medial meniscus, current injury, right knee, initial encounter (principal); M17.12 Unilateral primary osteoarthritis, left knee
CPT/HCPCS: 99024

== ENCOUNTER → 2024-04-07 09:55 | Outpatient (BNVA) | payer MEDICAID, SELFPAY | PROVIDERS: PCP Nurse Practitioner Family; Visit Provider Orthopaedic Surgery ==

== ENCOUNTER 2024-04-09 09:58 | Outpatient (AMB) | payer MEDICAID, SELFPAY ==
--- NOTE | 2024-04-09 10:11 | MHC.OFFVIS ---
Vital Signs 04/09/24 10:12 Height 5 ft 5 in Weight 176 lb BMI 29.3 Intake Visit Reasons: Right knee pain Intake Note: Franchesca presents for routine follow-up after undergoing right knee arthroscopic surgery on 03/20/2024. She reports mild intermittent discomfort in her right knee. She states that at times her right knee feels unstable. She has fallen because of the instability. She continues to go to formal physical therapy here at [facility]. She denies any fevers or chills. She is no longer taking narcotics for her discomfort. Allergies Penicillins [PENICILLINS] Allergy (Unknown, Verified 04/09/24 10:15) HIVES Medication List - Last Reconciled 04/09/24 by Ho Chahal MD acetaminophen ER 650 mg PO Q12H albuterol sulfate 90 mcg/actuation 2 puffs inhalation Q6H PRN albuterol sulfate mg inhalation Q4H PRN bisacodyl (Dulcolax (bisacodyl)) 10 mg (2 x 5 mg) PO BEDTIME 2 days budesonide-formoterol 160-4.5 mcg/actuation (Symbicort) 2 puffs inhalation BID epinephrine IM DIRECTED PRN famotidine 40 mg PO QNOON PRN loratadine (Allergy Relief (loratadine)) 10 mg PO DAILY PRN montelukast (Singulair) 10 mg PO BEDTIME omalizumab (Xolair) 300 mg subcut Q4W omeprazole 40 mg PO DAILY peg 3350-electrolytes 236-22.74-6.74 -5.86 gram (Golytely) 240 mL PO Q10M 1 day sucralfate (Carafate) 2 grams (2 x 1 gram) PO .q noon PFSH Medical History Back pain GERD (gastroesophageal reflux disease) Depression Asthma Bilateral knee pain Lumbar back pain with radiculopathy affecting right lower extremity Chronic urticaria Surgical History H/O tubal ligation Hx of hand surgery (~2013) Family History Father Throat cancer Family/Other Breast cancer Social History Are you a primary school childcare attendant to a significant other at home: No Do you presently have visiting nurse or other home services: No Alcohol intake: never Patient Tobacco Use Status: Current everyday Tobacco user Tobacco use type: Cigarette Cigarette Packs Per Day: 1.0 Cigarettes Per Day: 20.0 Substance Use Type: Marijuana Current occupational status: unemployed Current occupation: rt handed Physical Exam Vital Signs: BMI result Body Mass Index 29.3 Extrem Other: Right knee examination shows that the surgical incisions are well healed, no erythema, minimal discomfort with range of motion, minimal crepitus with range of motion Assessment & Plan Assessment & Plan (1) Right knee pain: Code(s): M25.561 - Pain in right knee Category: Medical Plan Franchesca continues to do fairly well after undergoing right knee arthroscopic surgery on 03/20/2024. She does have symptoms of instability most likely due to inflammation and continued healing and muscle weakness. Thus, I did have her fitted with a knee brace. I do find that the knee brace is a medical necessity to help prevent future falls. The patient will continue going to formal physical therapy for now. She will contact me prior to her follow-up appointment in 4 weeks should any questions or concerns arise. Feel free to call me at any time should questions regarding her orthopedic management arise. Coding Level of Care Code Global (97216) Diagnoses Right knee pain M25.561
[2024-04-09 10:12] VITALS: BMI 29.3
== END 2024-04-09 10:20 | disposition home or self-care (01) ==
LOC: HO.HOS 09:58
PROVIDERS: PCP Nurse Practitioner Family; Visit Provider Orthopaedic Surgery
DX: M25.561 Pain in right knee (principal)
CPT/HCPCS: 99024

== ENCOUNTER → 2024-04-09 09:58 | Outpatient (BNVA) | payer MEDICAID, SELFPAY | PROVIDERS: PCP Nurse Practitioner Family; Visit Provider Orthopaedic Surgery | DX: M25.561 Pain in right knee (principal) | CPT/HCPCS: 99212 ==

== ENCOUNTER 2024-04-19 09:08 | Emergency (ER) | payer MEDICAID, SELFPAY ==
--- NOTE | ~2024-04-19 | CT_ITS ---
EXAMINATION: CT ABDOMEN AND PELVIS WITH CONTRAST CLINICAL INFORMATION: Bright red blood per rectum COMPARISON: None available. TECHNIQUE: Multidetector volumetric images were obtained from the superior aspect of the liver through the pubic symphysis following administration 85 mL of Omnipaque 350 intravenous contrast. Sagittal and coronal reformatted images were obtained on the technologist's workstation. Oral contrast: No This CT examination was performed using dose optimization techniques as appropriate, variously including the following: *Automated exposure control *Adjustment of mA and/or kV according to patient size (this includes techniques or standardized protocols for targeted exams where dose is matched to indication/reason for exam; i.e. extremities or head) *Use of iterative reconstruction technique DLP: 691 mGy-cm FINDINGS: LUNG BASES: The visualized lung bases are unremarkable. LIVER, GALLBLADDER, AND BILIARY TREE: The liver is normal in size, shape, and attenuation. Ill-defined hypodensity along the falciform ligament likely represents focal fat deposition. No biliary ductal dilatation is present. The gallbladder is unremarkable with no evidence of radiopaque gallstones, gallbladder wall thickening, or obvious pericholecystic inflammatory changes. PANCREAS: Unremarkable. SPLEEN: Unremarkable. ADRENAL GLANDS: Unremarkable. KIDNEYS AND URETERS: The kidneys are normal in size, shape, and attenuation. No hydronephrosis, hydroureter, or calculi seen. No perinephric stranding. BLADDER: Unremarkable. GASTROINTESTINAL TRACT: Scattered sigmoid diverticulosis without secondary signs of acute diverticulitis. Apparent wall thickening of the sigmoid colon and distal descending colon may be due to underdistention. Limited evaluation for GI bleed on single portal venous phase. The small bowel is unremarkable. The appendix is unremarkable. ABDOMINAL WALL: No significant hernia is appreciated. LYMPH NODES: Normal. VASCULAR: Unremarkable. PELVIC VISCERA: Left ovarian cyst measures 1.5 x 1.2 x 1.6 cm, is likely physiologic and does not require further imaging follow-up. The uterus and right adnexa are unremarkable. OSSEOUS STRUCTURES: Unremarkable. CT/CT abdomen pelvis w IV con IMPRESSION: 1. Scattered sigmoid diverticulosis without secondary signs of acute diverticulitis. Apparent wall thickening of the sigmoid colon and distal descending colon may be due to underdistention. Recommend further evaluation with colonoscopy if clinically indicated. 2. Limited evaluation for GI bleed on single portal venous phase. If concern for active GI bleed, recommend a triple phase study. Fleischner guidelines were followed. Electronically signed by: Fay Breaux MD 04/19/2024 01:27 PM LOUISA HUNTER
[2024-04-19 09:18] VITALS: BP 140/85; PULSE 73; RESP 18; TEMP 36.2; O2SAT 100; BMI 29.1
--- NOTE | 2024-04-19 09:51 | ED_ITS ---
HPI - Abdominal Pain General Chief Complaint: Abdominal Pain Stated Complaint: blood in stool since yesterday Time Seen by Provider: 04/19/24 10:08 Source: patient, RN notes reviewed and old records reviewed Mode of arrival: ambulatory History of Present Illness ED Provider: Homa Montejo PA-C HPI narrative: 48-year-old female with a past medical history of GERD, depression, asthma, presenting to the ED complaining abdominal pain since yesterday with bright red bloody diarrhea when wiping and in toilet. Admits to associated nausea. Has colonoscopy/endoscopy scheduled on 04/21 at [facility] for chronic upper abdominal pain. Denies current NSAID or EtOH use. Denies anticoagulation use. Denies lightheadedness/dizziness, vomiting, constipation, dysuria/hematuria Related Data Home Medications ?Medication ?Instructions ?Recorded ?Confirmed acetaminophen 650 mg 650 mg PO Q12H 02/05/23 04/09/24 tablet,extended release albuterol sulfate 90 mcg/actuation 2 puff inhalation Q6H PRN 02/05/23 04/09/24 aerosol inhaler Shortness Of Breath Or Wheezing loratadine 10 mg tablet (Allergy 10 mg PO DAILY PRN Allergy Symptoms 02/05/23 04/09/24 Relief (loratadine)) montelukast 10 mg tablet 10 mg PO BEDTIME 02/05/23 04/09/24 (Singulair) omalizumab 150 mg subcutaneous 300 mg subcut Q4W 02/05/23 04/09/24 solution (Xolair) albuterol sulfate 2.5 mg/3 mL mg inhalation Q4H PRN wheezing 06/13/23 04/09/24 (0.083 %) solution for nebulization epinephrine 0.3 mg/0.3 mL IM DIRECTED PRN Allergic 06/13/23 04/09/24 injection, auto-injector Reaction famotidine 40 mg tablet 40 mg PO QNOON PRN Acid Reflux 06/13/23 04/09/24 budesonide-formoterol HFA 160 2 puff inhalation BID 11/13/23 04/09/24 mcg-4.5 mcg/actuation aerosol inhaler (Symbicort) omeprazole 40 mg capsule,delayed 40 mg PO DAILY 03/11/24 04/09/24 release Previous Rx's ?Medication ?Instructions ?Recorded bisacodyl 5 mg tablet,delayed 10 mg (2 x 5 mg) PO BEDTIME 2 days 01/01/24 release (Dulcolax (bisacodyl)) #4 tabs peg 3350-electrolytes 236 240 ml PO Q10M 1 day #4,000 mL 01/01/24 gram-22.74 gram-6.74 gram-5.86 gram solution (Golytely) sucralfate 1 gram tablet (Carafate) 2 g (2 x 1 gram) PO .q noon #60 02/18/24 tabs Allergies Allergy/AdvReac Type Severity Reaction Status Date / Time Penicillins [PENICILLINS] Allergy Unknown HIVES Verified 04/19/24 09:20 Review of Systems Review of Systems Yes all other systems are reviewed and are negative Constitutional: Reports as per [facility] Past Medical History Attestation statement: The following information was validated with the patient. Source: old records reviewed Medical History Back pain GERD (gastroesophageal reflux disease) Depression Asthma Bilateral knee pain Lumbar back pain with radiculopathy affecting right lower extremity Chronic urticaria Surgical History S/P right knee arthroscopy (03/20/24) H/O tubal ligation Hx of hand surgery (~2013) Family History Family History Father Throat cancer Family/Other Breast cancer Social History Social History Are you a primary gericare aide teacher to a significant other at home: No Do you presently have visiting nurse or other home services: No Alcohol intake: never Patient Tobacco Use Status: Current everyday Tobacco user Tobacco use type: Cigarette Cigarette Packs Per Day: 1.0 Cigarettes Per Day: 20.0 Substance Use Type: Marijuana Advance Directives: No Advance Directives Information Provided: No Do you have a plan to hurt others: No Plan Current occupational status: unemployed Current occupation: rt handed Physical Exam ED Vital Signs: Vital Signs - 24 hr 04/19/24 09:18 04/19/24 12:27 04/19/24 14:41 Temperature 97.1 F 98.2 F 98.4 F Pulse Rate 73 54 58 Respiratory Rate 18 14 16 Blood Pressure 140/85 H 119/57 L 112/56 L Pulse Oximetry 100 100 99 Oxygen Delivery Method Room Air Room Air Room Air BMI result Body Mass Index 29.1 Const General: cooperative, healthy appearing and no acute distress Orientation/consciousness: patient oriented x3 Limitations: no limitations HENMT Head: Yes normal to inspection and Yes atraumatic Ears: hearing grossly normal bilaterally General nose exam: Normal external nose present Face and sinus: Yes normal facial exam Eyes General: appearance normal, both eyes and all related structures EOM: EOMs intact bilaterally Neck Neck: Yes normal visual inspection and Yes no meningeal signs Resp Effort & Inspection: normal respiratory effort and no respiratory distress Auscultation: clear to auscultation bilaterally Cardio Rate: regular rate Heart sounds: S1 normal heart sound present and S2 normal heart sound present GI Inspection: Yes normal to inspection Palpation (GI): Soft to palpation, Tenderness to palpation present (GI) in the epigastrum; with no rebound tenderness, no guarding and not rigid Rectal Exam - Female: External hemorrhoid(s) present (Without thrombosis or active bleeding) General: Yes no CVA tenderness Back/Spine/Pelvis Back: no CVA tenderness Skin Rashes: no rashes Wounds: no wounds Neuro General: patient oriented x3, tone normal and no meningeal signs Cranial nerves: Yes CN's II-XII intact bilaterally Gait exam (Neuro): Normal gait present Extrem General: Yes normal to inspection Course Course Course Narrative: This is a rapid medical exam. Deferred additional HPI, ROS, PE to primary provider. 48 yo female currently on PPI/carafate here with upper abdominal pain since 4pm yesterday, this morning had some diarrhea mixed with mucosy blood. Has colonoscopy/endoscopy on 04/21 with [facility] for chronic upper abdominal pain. VSS Will obtain labs, UA -A. 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 H/H stable. Labs otherwise reassuring. UA negative -occult stool positive CT abdomen pelvis w IV con IMPRESSION: 1. Scattered sigmoid diverticulosis without secondary signs of acute diverticulitis. Apparent wall thickening of the sigmoid colon and distal descending colon may be due to underdistention. Recommend further evaluation with colonoscopy if clinically indicated. 2. Limited evaluation for GI bleed on single portal venous phase. If concern for active GI bleed, recommend a triple phase study. Fleischner guidelines were followed. > on re-evaluation patient lying comfortably in stretcher. Reports 1 bloody BM in the ED. Will consult GI, Dr. Rubio > after Ramiro recommended discharge home and follow up for colonoscopy in 2 days if patient is comfortable, however if patient uncomfortable with this plan can be admitted and colonoscopy can be done as inpatient. Also recommended obtaining GI stool panel and C diff sample. >> this was discussed with patient, patient requesting discharge, states she will return in 2 days promptly for colonoscopy. Discussed obtaining stool sample, patient is supplied with stool sample cups, states she is unable to give sample in the ED Medical Decision Making Medical Decision Making [facility] Narrative: 48-year-old female with a past medical history of GERD, depression, asthma, presenting to the ED complaining abdominal pain since yesterday with bright red bloody diarrhea when wiping and in toilet. Admits to associated nausea. On exam vital signs stable, NAD, nontoxic appearing, abdomen soft with epigastric tenderness. External hemorrhoids appreciated on rectal without thrombosis or active bleeding. Concern for pancreatitis vs cholecystitis/lithiasis vs GERD/gastritis vs GI bleed vs hemorrhoidal bleeding. Low suspicion for upper GI bleed. Rule out anemia. Plan: Labs, UA, occult stool, CT AP, pain management Please refer to course for remaining clinical decision making, interpretation of labs/imaging results, and discussions with consultants and/or family members. Differential Diagnosis Differential Diagnoses: The differential diagnosis associated with the presentation includes As above Admission/Observation Consideration of admission/observation: Escalation of care including admission/observation considered Consult Healthcare Provider Management of the patient was discussed with: Billet Worker Lab Data [facility] Lab Attestation statement: I reviewed the patient's lab results. 04/19/24 10:14 04/19/24 10:14 Labs: Lab Results 04/19/24 04/19/24 04/19/24 Range/Units 10:14 10:44 10:48 WBC 9.2 (4.8-10.8) X10*3/uL RBC 4.97 (4.20-5.50) X10*6/uL Hgb 14.8 (12.0-16.0) g/dl Hct 43.8 (37.0-47.0) % MCV 88.1 (80.0-98.0) fL MCH 29.8 (27.0-33.0) pg MCHC 33.8 (31.0-35.0) g/dl RDW 13.5 (11.0-16.0) % Plt Count 252 (160-400) X10*3/uL MPV 10.8 (9.4-12.3) fL Immature Gran % (Auto) 0.3 (0.0-0.4) % Neut % (Auto) 75.5 H (45-73) % Lymph % (Auto) 18.0 L (20-40) % [place] % (Auto) 5.2 (2-11) % Eos % (Auto) 0.8 (0-4) % Baso % (Auto) 0.2 (0-2) % Lymph # (Auto) 1.7 (1.2-4.9) X10*3/uL [place] # (Auto) 0.5 (0.1-1.2) X10*3/uL Eos # (Auto) 0.1 (0.0-0.4) X10*3/uL Baso # (Auto) 0.0 (0.0-0.2) X10*3/uL Abs Immat Gran (auto) 0.03 (0.00-0.03) X10*3/uL Absolute Neuts (auto) 6.9 (2.0-8.3) x10*3/uL Absolute Nucleated RBC 0.000 (0.0-0.012) X10*3/uL Nucleated RBC % (auto) 0.0 (0.0-0.2) /100WBC PT (10.9-12.4) SEC INR (0.9-1.1) Sodium 143 (135-145) mmol/L Potassium 4.3 (3.3-5.1) mmol/L Chloride 107 (96-108) mmol/L Carbon Dioxide 25 (22-29) mmol/L Anion Gap 15 (12-20) BUN 7 L (9-16) mg/dL Creatinine 0.72 (0.5-1.4) mg/dL Estim Creat Clear Calc 100.4 Estimated GFR > 60 Random Glucose 97 (60-115) mg/dL Calcium 10.0 (8.4-10.2) mg/dL Magnesium 1.9 (1.6-2.6) mg/dL Total Bilirubin 0.4 (0.0-1.0) mg/dL AST 22 (5-31) U/L ALT 10 (0-31) U/L Alkaline Phosphatase 85 (39-117) U/L Total Protein 6.6 (6.5-8.0) g/dL Albumin 4.0 (3.5-5.0) g/dL Lipase 27 (8-78) U/L Urine Color Yellow Urine Appearance Clear Urine pH 5.5 (5.0-9.0) Ur Specific [place] 1.020 (1.005-1.025) Urine Protein Negative (Neg-Trace) mg/dL Urine Glucose (UA) Negative (Negative) mg/dL Urine Ketones Negative (Negative) mg/dL Urine Blood Negative (Negative) Urine Nitrite Negative (Negative) Ur Leukocyte Esterase Negative (Negative) Urine RBC 0-2 (0-2) /HPF Urine WBC 0-5 (0-5) /HPF Ur Squamous Epith Cells 0-2 (0-2) /HPF Urine Bacteria None Seen (None Seen) Hyaline Casts 0-2 (0-2) /LPF Stool Occult Blood POSITIVE (NEGATIVE) 04/19/24 Range/Units 10:51 WBC (4.8-10.8) X10*3/uL RBC (4.20-5.50) X10*6/uL Hgb (12.0-16.0) g/dl Hct (37.0-47.0) % MCV (80.0-98.0) fL MCH (27.0-33.0) pg MCHC (31.0-35.0) g/dl RDW (11.0-16.0) % Plt Count (160-400) X10*3/uL MPV (9.4-12.3) fL Immature Gran % (Auto) (0.0-0.4) % Neut % (Auto) (45-73) % Lymph % (Auto) (20-40) % [place] % (Auto) (2-11) % Eos % (Auto) (0-4) % Baso % (Auto) (0-2) % Lymph # (Auto) (1.2-4.9) X10*3/uL [place] # (Auto) (0.1-1.2) X10*3/uL Eos # (Auto) (0.0-0.4) X10*3/uL Baso # (Auto) (0.0-0.2) X10*3/uL Abs Immat Gran (auto) (0.00-0.03) X10*3/uL Absolute Neuts (auto) (2.0-8.3) x10*3/uL Absolute Nucleated RBC (0.0-0.012) X10*3/uL Nucleated RBC % (auto) (0.0-0.2) /100WBC PT 11.5 (10.9-12.4) SEC INR 1.0 (0.9-1.1) Sodium (135-145) mmol/L Potassium (3.3-5.1) mmol/L Chloride (96-108) mmol/L Carbon Dioxide (22-29) mmol/L Anion Gap (12-20) BUN (9-16) mg/dL Creatinine (0.5-1.4) mg/dL Estim Creat Clear Calc Estimated GFR Random Glucose (60-115) mg/dL Calcium (8.4-10.2) mg/dL Magnesium (1.6-2.6) mg/dL Total Bilirubin (0.0-1.0) mg/dL AST (5-31) U/L ALT (0-31) U/L Alkaline Phosphatase (39-117) U/L Total Protein (6.5-8.0) g/dL Albumin (3.5-5.0) g/dL Lipase (8-78) U/L Urine Color Urine Appearance Urine pH (5.0-9.0) Ur Specific [place] (1.005-1.025) Urine Protein (Neg-Trace) mg/dL Urine Glucose (UA) (Negative) mg/dL Urine Ketones (Negative) mg/dL Urine Blood (Negative) Urine Nitrite (Negative) Ur Leukocyte Esterase (Negative) Urine RBC (0-2) /HPF Urine WBC (0-5) /HPF Ur Squamous Epith Cells (0-2) /HPF Urine Bacteria (None Seen) Hyaline Casts (0-2) /LPF Stool Occult Blood (NEGATIVE) Independent Interpretation I performed an independent interpretation of an: CT Scan Radiology Impression Discussion of test interpretation with radiology: I have reviewed the radiologist's reading. External Record Review External record reviewed: Inpatient record, Office record, Outpatient record, Prior outpatient labs, Prior outpatient radiology, Primary care record and Outside ED record Tests considered The following testing was considered but not selected: As above Chronic Conditions Patient?s care impacted by: Other Social Determinants Patient?s care significantly limited by Social Determinants of Health including: Other Social Determinant of Health Medications Administered Discontinued Medications Generic Name Dose Route Start Last Admin Trade Name Freq PRN Reason Stop Dose Admin Iohexol 100 ml 04/19/24 12:12 04/19/24 12:13 Iohexol 350 Mg/Ml 100 Ml Infus..Btl IV 04/19/24 12:13 85 ml ONCE ONE Administration Discharge Plan Discharge Clinical Impression: BRBPR (bright red blood per rectum) Patient Disposition: Home, Self-Care Instructions: Rectal Bleeding (ED) Additional Instructions: Your blood work was reassuring. Your stool was positive for blood. Your CT scan did not show any active bleeding YOU NEED TO FOLLOW-UP FOR YOUR COLONOSCOPY IN 2 DAYS. If her bleeding persists, worsens, you develop worsening abdominal pain, fever, lightheadedness or dizziness return to the ED immediately Please avoid any NSAID use or aspirin use. Please provide stool sample when possible. Prescriptions: No Action peg 3350-electrolytes [Golytely] 236-22.74-6.74 -5.86 gram recon soln 240 ml PO Q10M 1 Days Qty: 4000 0RF Rx Instructions: until fecal effluent is clear; do not exceed a total volume of 2,000 mL bisacodyl [Dulcolax (bisacodyl)] 5 mg tablet,delayed release (DR/EC) 10 mg PO BEDTIME 2 Days Qty: 4 0RF sucralfate [Carafate] 1 gram tablet 2 g PO .q noon Qty: 60 3RF omeprazole 40 mg capsule,delayed release(DR/EC) 40 mg PO DAILY Xolair 150 mg recon soln 300 mg subcut Q4W Rx Instructions: requires multiple injection sites; do not exceed 150 mg per injection site albuterol sulfate 90 mcg/actuation HFA aerosol inhaler 2 puff inhalation Q6H PRN (Reason: Shortness Of Breath Or Wheezing) acetaminophen 650 mg tablet extended release 650 mg PO Q12H loratadine [Allergy Relief (loratadine)] 10 mg tablet 10 mg PO DAILY PRN (Reason: Allergy Symptoms) montelukast [Singulair] 10 mg tablet 10 mg PO BEDTIME epinephrine 0.3 mg/0.3 mL auto-injector IM DIRECTED PRN (Reason: Allergic Reaction) albuterol sulfate 2.5 mg /3 mL (0.083 %) solution for nebulization inhalation Q4H PRN (Reason: wheezing) famotidine 40 mg tablet 40 mg PO QNOON PRN (Reason: Acid Reflux) budesonide-formoterol [Symbicort] 160-4.5 mcg/actuation HFA aerosol inhaler 2 puff inhalation BID Referrals: [facility] [Provider Group] - 2 days Interventions: ED Discharge Assessment Last Done: 04/19/24 14:41 Discharge Date/Time: 04/19/24 14:41 Print Language: Welsh
[2024-04-19 10:19] LABS: MANUAL DIFF FLAG NO
[2024-04-19 10:23] LABS: Basophils Percent Auto 0.2 % (0-2); Eosinophils Absolute Auto 0.1 X10*3/uL (0.0-0.4); Eosinophils Percent Auto 0.8 % (0-4); Hematocrit 43.8 % (37.0-47.0); Hemoglobin 14.8 g/dl (12.0-16.0); Imm Gran Abs Auto 0.03 X10*3/uL (0.00-0.03); Imm Gran Pct Auto 0.3 % (0.0-0.4); Lymphocytes Absolute Auto 1.7 X10*3/uL (1.2-4.9); Mean Corpuscular HGB Conc 33.8 g/dl (31.0-35.0); Mean Corpuscular Hemoglobin 29.8 pg (27.0-33.0); Mean Corpuscular Volume 88.1 fL (80.0-98.0); Mean Platelet Volume 10.8 fL (9.4-12.3); Monocytes Absolute Auto 0.5 X10*3/uL (0.1-1.2); Monocytes Percent Auto 5.2 % (2-11); Neutrophils Absolute Auto 6.9 x10*3/uL (2.0-8.3); Neutrophils Percent Auto 75.5 % (45-73); Platelet Count 252 X10*3/uL (160-400); Red Blood Count 4.97 X10*6/uL (4.20-5.50); Red Cell Distribution Width 13.5 % (11.0-16.0); White Blood Count 9.2 X10*3/uL (4.8-10.8)
[2024-04-19 10:41] LABS: Alanine Aminotransferase 10 U/L (0-31); Alkaline Phosphatase 85 U/L (39-117); Anion Gap 15 (12-20); Aspartate Amino Transferase 22 U/L (5-31); Bilirubin Total 0.4 mg/dL (0.0-1.0); Blood Urea Nitrogen 7 mg/dL (9-16); Carbon Dioxide 25 mmol/L (22-29); Chloride 107 mmol/L (96-108); Creatinine Clr Calc Pharmacy 100.4; Estimated Glomerular Filt Rate > 60; Glucose Random 97 mg/dL (60-115); Lipase 27 U/L (8-78); Magnesium 1.9 mg/dL (1.6-2.6); Potassium 4.3 mmol/L (3.3-5.1); Sodium 143 mmol/L (135-145); Total Protein 6.6 g/dL (6.5-8.0)
[2024-04-19 10:58] LABS: OBS Int Ctl Valid YES; OBS1 POSITIVE (NEGATIVE)
[2024-04-19 10:58] LABS: Appearance Urine Clear; Color Urine Yellow; Glucose Urine UA Negative (Negative); Leukocyte Esterase Urine Negative (Negative); Nitrite Urine Negative (Negative); PH 5.5 (5.0-9.0); Urine Blood Negative (Negative); Urine Ketones Negative (Negative); Urine Protein Negative (Neg-Trace)
[2024-04-19 11:01] LABS: Bacteria Urine None Seen (None Seen); Hyaline Casts Urine 0-2 /LPF (0-2); RBC Urine 0-2 /HPF (0-2); Squamous Epithelial Cell Urine 0-2 /HPF (0-2); WBC Urine 0-5 /HPF (0-5)
[2024-04-19 11:02] LABS: Prothrombin Time 11.5 SEC (10.9-12.4)
[2024-04-19] MEDS: iohexoL 350 MG/ML 100 ML INFUS..BTL IV (12:13)
[2024-04-19 12:27] VITALS: BP 119/57; PULSE 54; RESP 14; TEMP 36.8; O2SAT 100
[2024-04-19 14:41] VITALS: BP 112/56; PULSE 58; RESP 16; TEMP 36.9; O2SAT 99
== END 2024-04-19 14:41 | disposition home or self-care (01) ==
PROVIDERS: Nurse Practitioner Family; Physician Assistant; Emergency Provider Emergency Medicine; PCP Nurse Practitioner Family
DX: K62.5 Hemorrhage of anus and rectum (principal); R10.2 Pelvic and perineal pain; R19.7 Diarrhea, unspecified; F17.210 Nicotine dependence, cigarettes, uncomplicated; Z79.899 Other long term (current) drug therapy
CPT/HCPCS: 36415; 74177; 80053; 81001; 82272; 83690; 83735; 85025; 85610; 99284; Q9967

== ENCOUNTER 2024-04-21 09:44 | Day surgery (SDC) | payer MEDICAID, SELFPAY ==
[2024-04-17 13:50] VITALS: BMI 29.3
--- NOTE | 2024-04-21 09:59 | P.CONAN_ITS ---
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 (Acute) History of carpal tunnel surgery of left wrist (Acute) Arthritis of left knee (Acute) Arthritis of right knee (Acute) Pre-op examination (Acute) Epigastric pain (Acute) Sacroiliitis (Acute) Chronic right SI joint pain (Acute) Right knee pain (Acute) Osteoarthritis of knees, bilateral (Acute) Discogenic low back pain (Acute) Left knee pain (Acute) Lumbar spondylosis (Acute) Bilateral knee pain (Acute) Lumbar back pain with radiculopathy affecting right lower extremity (Acute) Smoker- 2 days ago Marijuana-3daysago Last took her medications 3 days ago-04/18/24 Epipen prn for Chronic hives Past Medical History Medical History Back pain GERD (gastroesophageal reflux disease) Depression Asthma Bilateral knee pain Lumbar back pain with radiculopathy affecting right lower extremity Chronic urticaria Family History Family History Father Throat cancer Family/Other Breast cancer Family history of problems with anesthesia: No Surgical History Surgical History S/P right knee arthroscopy (03/20/24) H/O tubal ligation Hx of hand surgery (~2013) History of Problems with Anesthesia: No Social History Social History Are you a primary career center director to a significant other at home: No Do you presently have visiting nurse or other home services: No Alcohol intake: never Patient Tobacco Use Status: Current everyday Tobacco user Tobacco use type: Cigarette Cigarette Packs Per Day: 1.0 Cigarettes Per Day: 6 Substance Use Type: Marijuana Current occupational status: unemployed Current occupation: rt handed Meds Allergies Allergy/AdvReac Type Severity Reaction Status Date / Time Penicillins [PENICILLINS] Allergy Unknown HIVES Verified 04/19/24 09:20 Home Medications ?Medication ?Instructions ?Recorded ?Confirmed ?Last Taken ?Type acetaminophen 650 mg 650 mg PO Q12H 02/05/23 04/09/24 Unknown History tablet,extended release albuterol sulfate 90 mcg/actuation 2 puff inhalation Q6H PRN 02/05/23 04/09/24 03/19/24 History aerosol inhaler Shortness Of Breath Or Wheezing loratadine 10 mg tablet (Allergy 10 mg PO DAILY PRN Allergy Symptoms 02/05/23 04/09/24 Unknown History Relief (loratadine)) montelukast 10 mg tablet 10 mg PO BEDTIME 02/05/23 04/09/24 03/19/24 History (Singulair) omalizumab 150 mg subcutaneous 300 mg subcut Q4W 02/05/23 04/09/24 Unknown History solution (Xolair) albuterol sulfate 2.5 mg/3 mL mg inhalation Q4H PRN wheezing 06/13/23 04/09/24 Unknown History (0.083 %) solution for nebulization epinephrine 0.3 mg/0.3 mL IM DIRECTED PRN Allergic 06/13/23 04/09/24 Unknown History injection, auto-injector Reaction famotidine 40 mg tablet 40 mg PO QNOON PRN Acid Reflux 06/13/23 04/09/24 Unknown History budesonide-formoterol HFA 160 2 puff inhalation BID 11/13/23 04/09/24 Unknown History mcg-4.5 mcg/actuation aerosol inhaler (Symbicort) omeprazole 40 mg capsule,delayed 40 mg PO DAILY 03/11/24 04/09/24 03/19/24 History release Exam Height,Weight and Vital Signs: Height 5 ft 5 in Weight 79.832 kg Vital Signs Temp Pulse Resp BP Pulse Ox O2 Del Method 04/21/24 10:25 98.1 F 63 16 126/66 96 Room Air Airway Mallampati Class: I TM Dist: >3cm Neck ROM: Full Loose/Missing/Broken Teeth: No Heart: RRR Lungs: CTAB Assessment and Plan Assessment Anesthesia Assessment: Anesthesia Plan Discussed and Chart Reviewed Final Anesthetic Review Family History of Problems with Anesthesia: No History of Problems with Anesthesia: No NPO: Yes ASA Class: II Final Preanesthetic Review: No Changes in Pt Med Stat, Meds/Allgs Chart Reviewed, Consent Obtained/Reviewed and Anes Risks/Benef Reviewed Patient Risk: Intermediate Procedure Risk: Low Assessment/Block/Sedation in SS: Assess/Block/Sedation-SS Anesthetic Plan Anesthetic Plan: GA Disposition: Standard PACU
--- NOTE | 2024-04-21 10:08 | MHC.SHP ---
Pre-Procedural Eval Section A - 24 Hr Update-Section A only Date of Service: 04/21/24 Section B - Complete if H&P > 30 days Chief Complaint: GERD, screening Details of Present Illness: PMX Allergic rhinitis Hives Asthma GERD OA of knee DJD of lumbar spin SURGICAL HISTORY tubal ligation Left wrist fustion ALLERGIES PCN - rash/hives Present Medications: see Short Stay Collaborative assessment Allergies: Allergies Allergy/AdvReac Type Severity Reaction Status Date / Time Penicillins [PENICILLINS] Allergy Unknown HIVES Verified 04/19/24 09:20 Review of Systems Review of Systems Comment: Ten point ROS negative Exam Exam Comment: Gen appear: No acute distress HEENT: no icterus Chest: No overt resp distress Abd: soft, nontender, nondistended Psych: Stable affect, answering questions appropriately Neuro: A/Ox3 noted to move all extremities spontaneously Ext: no peripheral edema Plan Diagnosis/Plan: Unchanged I have reviewed the history and physical and performed a pertinent physical examination on my patient. No changes have occurred unless specified. Time Spent With Patient Time: Total time managing care of this patient today ____ minutes.
[2024-04-21 10:25] VITALS: BP 126/66; PULSE 63; RESP 16; TEMP 36.7; O2SAT 96; BMI 28.8
--- NOTE | 2024-04-21 11:41 | P.OPN-COLO_ITS ---
Colonoscopy Operative Note Operative Note Date of Service: 04/21/24 Narrative: Procedure: Upper endoscopy and colonoscopy Indication: Abd pain, GERD, screening Endoscopist: Diana Stevens MD Anesthesia Provider: Penny Wiggins Anesthesia type: GEA Instrument: GIF-H190 and PCF-H190L EGD Procedure:?? The procedure, indications, preparation and potential complications were reviewed with the patient, who indicated understanding and gave written informed consent to proceed. The patient was electively intubated for the procedure due to recent ER visit for nausea and vomiting. The endoscope was introduced through the mouth, and advanced to the 2nd part of the duodenum. The mucosa was carefully examined on slow withdrawal of the endoscope. The patient tolerated the procedure well. There were no immediate complications.? EGD Findings:? * Esophagus:? Normal esophageal mucosa was noted. The Z-line was at 38 cm. Cold forceps biopsies were taken from lower esophagus for histological evidence of reflux. * Stomach:? Normal gastric mucosa was noted. Retroflexion was performed in the cardia. Random cold forceps biopsies were taken from the stomach. * Duodenum:? Erythema, small erosions in scant heme noted in the duodenal bulb and sweep. Cold forceps biopsies were taken from the duodenal bulb and 2nd portion of the duodenum to rule out celiac sprue. Colonoscopy Procedure:? The patient was then turned for the colonoscopy. A digital rectal exam was performed which was normal.? A distal attachment cap was affixed to the tip of the scope and the colonoscope was then inserted through the anus and advanced through the colon and advanced to the cecum at 75 cm and terminal ileum.? Appendiceal orifice and ileocecal valve were identified. Mucosa was carefully examined under high definition white light as the instrument was slowly withdrawn in a retrograde panoramic fashion. Retroflexion was performed in rectum. The procedure was not difficult. The quality of the prep was BBPS: 2+2+2 = adequate Withdrawal time 11 minutes Limitations: No limitations Findings: Mucosa: Adherent liquid stool was noted throughout the colon, which was extensively flushed. A 1 cm plaque of whitish exudate was noted in the sigmoid colon at 25 cm ? cholesterol exudate. Cold forceps biopsies were taken and sent for histology. Cold forceps biopsies were also taken from the right and left side of the colon rule out microscopic colitis. Protruding lesions: * 1 sessile polyp of size 4 mm in transverse colon. Cold forceps polypectomy was performed. * Small internal hemorrhoids without stigmata of recent bleeding. Excavated lesions: * Mild diverticulosis in the left colon. Impression: 1. Normal esophagus (biopsy) 2. Normal stomach (biopsy) 3. Peptic duodenitis (biopsy) 4. Whitish plaque in sigmoid colon (biopsy) 5. One polyp removed 6. Internal hemorrhoids 7. Diverticulosis Recommendations:?? * Follow-up path results * Avoid NSAIDs * Agree with PPI therapy * H Pylori treatment if biopsies + * Repeat colonoscopy for CRC screening in 5 years if polyp is SSL, 7 years if benign or adenoma.
[2024-04-21 11:51] VITALS: BP 115/58; PULSE 68; RESP 18; TEMP 36.8; O2SAT 100
[2024-04-21 12:06] VITALS: BP 109/43; PULSE 66; RESP 18; TEMP 36.6; O2SAT 97
== END 2024-04-21 12:27 | disposition home or self-care (01) ==
PROVIDERS: PCP Nurse Practitioner Family; Visit Provider Internal Medicine
PROC: (CPT 45380; principal; 2024-04-21 11:30)
DX: Z12.11 Encounter for screening for malignant neoplasm of colon (principal); K63.5 Polyp of colon; K57.30 Diverticulosis of large intestine without perforation or abscess without bleeding; K64.8 Other hemorrhoids; K55.20 Angiodysplasia of colon without hemorrhage; R10.13 Epigastric pain; K21.9 Gastro-esophageal reflux disease without esophagitis; K29.80 Duodenitis without bleeding; J45.909 Unspecified asthma, uncomplicated; Z79.899 Other long term (current) drug therapy; Z88.0 Allergy status to penicillin; Z98.890 Other specified postprocedural states; F17.210 Nicotine dependence, cigarettes, uncomplicated
CPT/HCPCS: 45380; 43239; 88305; 88313; 88342; J0330; J1100; J1596; J2003; J2250; J2405; J2704; J3010

== ENCOUNTER → 2024-04-21 09:44 | Outpatient (BNV) | payer MEDICAID, SELFPAY | PROVIDERS: PCP Nurse Practitioner Family; Visit Provider Internal Medicine | DX: Z12.11 Encounter for screening for malignant neoplasm of colon (principal); K63.5 Polyp of colon; K57.30 Diverticulosis of large intestine without perforation or abscess without bleeding; K64.8 Other hemorrhoids; K21.9 Gastro-esophageal reflux disease without esophagitis; K29.80 Duodenitis without bleeding | CPT/HCPCS: 43239; 45380 ==

== ENCOUNTER 2024-04-22 09:42 | Outpatient (RCR) | payer MEDICAID, SELFPAY ==
--- NOTE | 2024-04-08 13:00 | MHC.PT.EP ---
[facility] [place] Office [place] Office [place] Office [address] Beena Villanueav [address] [phone] F: [phone] F: [phone] F: [phone] F: [phone] Physical Therapy Plan of Care Date of Evaluation: 04/08/24 Date of Surgery: 03/20/24 Diagnosis: RIGHT knee lateral meniscus tear, degenerative joint disease s/p RIGHT knee diagnostic arthroscopy with arthroscopic partial lateral meniscectomy, arthroscopic chondroplasty of the undersurface of the patella (DOS: 03/20/24) RS Assessment: Franchesca is a 48 yo female who was referred by MARIAN Blanco, surgery done by Dr. Tirso MD, for RIGHT knee lateral meniscus tear, degenerative joint disease, s/p RIGHT knee diagnostic arthroscopy with arthroscopic partial lateral meniscectomy, arthroscopic chondroplasty of the undersurface of the patella. Impairments include limited ROM of R knee, weakness of R quad, mild swelling of R knee, and pain during functional tasks resulting in her inability to bend, squat, and navigate stairs without limitation. These deficits are impacting her participation in household ADLs, and ambulating in the community. She will benefit from skilled PT to improve impairments and meet her functional goals. Frequency and Duration: The patient will be seen 2x/week for 4 weeks Short Term Goals: 2 weeks Patient will be able to HEP at home for independent management. Patient presents with reduction of R knee midpatellar swelling 39.5cm to improve gait pattern. Senior Living Goals: 4 weeks Patient will increase R knee flexion ROM to 115 degrees to be able to use reciprocal step pattern while descending one flight of stairs. Patient will increase R quad strength to 4/5 to be able to squat to perform low level cleaning tasks. Treatment Plan: Modalities to reduce pain, spasms and effusion. Manual therapy to restore motion and function. Therapeutic exercise to improve strength and flexibility. Neuromuscular re-education for posture and balance. Therapeutic activities to return to functional activities of daily living. Electronically signed by: Josefina Samuel, PT, DPT Please sign and return to therapist. Thank you for your referral.
--- NOTE | 2024-07-15 11:57 | MHC.PT.DC ---
[facility] [place] Office [place] [facility] [place] Office [address] Beena Villnaueva 140 [facility] [phone] F: [phone] F: [phone] F: [phone] F: [phone] Physical Therapy Discharge Report Diagnosis: RIGHT knee lateral meniscus tear, degenerative joint disease s/p RIGHT knee diagnostic arthroscopy with arthroscopic partial lateral meniscectomy, arthroscopic chondroplasty of the undersurface of the patella (DOS: 03/20/24) RS Date of Surgery: 03/20/24 Date of Evaluation: 04/08/24 Date of Discharge: 07/15/24 Treatments to Date: 3 Cancellations to Date: 3 No Shows to Date: 2 Discharge Status: Visit Non-compliance Discharge Summary: Franchesca was last seen 04/22/24, the assessment reads, Franchesca is progressing well - increased knee AROM flexion to within range of unaffected side. Progressed to RTB for ther ex, and began standing exercises with good tolerance and adequate fatigue by patient. Educated on taking it easy while tissues are still healing the most for 6 weeks post surgery. Advised patient to use ice on knee at home. Continue to progress according to patient tolerance. She ceased attending PT after this, not showing the rest of her appointments and is therefore discharged on her own accord. Electronically signed by: Josefina Samuel, PT, DPT Please sign and return to therapist. Thank you for your referral.
== END 2024-07-15 11:58 | disposition home or self-care (01) ==
LOC: HO.PT 09:42
PROVIDERS: PCP Nurse Practitioner Family; Visit Provider Physician Assistant
DX: S83.241A Other tear of medial meniscus, current injury, right knee, initial encounter (principal); M17.12 Unilateral primary osteoarthritis, left knee
CPT/HCPCS: 97110; 97161; 97530

== ENCOUNTER 2024-04-29 08:17 | Outpatient (AMB) | payer MEDICAID, SELFPAY ==
--- NOTE | 2024-04-29 08:34 | MHC.OFFVIS ---
Vital Signs 04/29/24 08:37 Height 5 ft 5 in Weight 173 lb BMI 28.8 Intake Visit Reasons: OV- Nerve conduction study review Intake Note: Franchesca is a 48 yo female who presents today to review EMG results. EMG performed 03/26/24 showing a normal study. Allergies Penicillins [PENICILLINS] Allergy (Unknown, Verified 04/29/24 08:37) HIVES HPI HPI OV- Nerve conduction study review: Details: Franchesca is a 48 year old right hand dominant woman who returns for a NCS review. She has a NCS ordered due to complaints of right hand numbness. No complaints of numbness today in clinic. She as a hx of a left carpal tunnel release done in [place], sometime in 2020. She says she also had a pinched nerve in her neck managed along with her L carpal tunnel release. She says following surgery her left hand sensation improved and is now still normal. She continues to complain of painful cramping & swelling in her bilateral hands. She says her swelling is worse in the mornings. She denies being seen by a Life Trainer in the past. *Please see my note from 02/12/24 for more information* She has a Hx of left wrist arthrodesis to treat her Kienbock's disease, done at [facility] in ~2013. It sounds like the arthrodesis followed and previous bone procedure, which was then followed by removal of those implants and then an arthrodesis. We have no records to review. [facility]LY [facility] Medical History Back pain GERD (gastroesophageal reflux disease) Depression Asthma Bilateral knee pain Lumbar back pain with radiculopathy affecting right lower extremity Chronic urticaria Surgical History S/P right knee arthroscopy (03/20/24) H/O tubal ligation Hx of hand surgery (~2013) Family History Father Throat cancer Family/Other Breast cancer Social History Are you a primary healthcare project manager to a significant other at home: No Do you presently have visiting nurse or other home services: No Alcohol intake: never Patient Tobacco Use Status: Current everyday Tobacco user Tobacco use type: Cigarette Cigarette Packs Per Day: 1.0 Cigarettes Per Day: 6 Substance Use Type: Marijuana Current occupational status: unemployed Current occupation: rt handed Review of Systems Const All systems reviewed & are unremarkable except as noted in HPI and below Physical Exam Vital Signs: BMI result Body Mass Index 28.8 Const General: no acute distress and alert Orientation/consciousness: patient oriented x3 Neuro General: patient oriented x3 Extrem Other: Evaluation of Bilateral Upper Extremity: The patient is alert, oriented, and in no acute distress On the dorsal aspect of the left wrist she has a long longitudinal incision consistent with a wrist arthrodesis. On the volar aspect of the left wrist she has a longitudinal scar over the distal aspect of the FCR tendon, and she also has a another 2 cm scar over the radial styloid aspect of the 1st dorsal compartment. She also has a carpal tunnel scar which is barely visible on the left. She denied having any surgeries on the right side. Neuro: Normal sensation to the tips of all digits bilaterally No thenar or intrinsic wasting Good APB muscle belly firing and good finger cross Vascular: Cap refill brisk ROM: She can make a fist and extend all her digits No locking or catching No tenderness over any of the A1 pulleys. Nerve Conduction Study: IMPRESSION: 1. This is a normal study. 2. There is no electrodiagnostic evidence for median neuropathy, ulnar neuropathy, brachial plexopathy, or cervical radiculopathy. 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 Bilateral hand cramping, swelling, pain Primarily of the thumb, index, and middle fingers No visible or palpable locking or catching in clinic This is her chief complaint today I educated her about this condition I recommend she modify her activities which cause her cramping, such as prolonged or excessive gripping of objects like her phone She should take regular breaks from activities and perform gentle stretching exercises No operative intervention indicated today I advised her that if her morning hand swelling and stiffness increase in frequency or severity, she should consider speaking to her PCP concerning a referral for evaluation by Rheumatology. She is happy with the current plan. Otherwise she can follow up prn 2. Report of Left Keinbock's disease, S/P arthrodesis DOS: ~2013 at [facility] 3. History of left carpal tunnel release DOS: ~2020 in [place] With normal sensation Scribed for Erin Portillo MD by Doug Guzman, biomedical scientist, on 04/29/24 at 9:00 AM, EST. 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
[2024-04-29 08:37] VITALS: BMI 28.8
== END 2024-04-29 09:16 | disposition home or self-care (01) ==
PROVIDERS: PCP Nurse Practitioner Family; Visit Provider Orthopaedic Surgery
DX: R25.2 Cramp and spasm (principal); Z98.890 Other specified postprocedural states; M93.1 Kienbock's disease of adults; M79.89 Other specified soft tissue disorders
CPT/HCPCS: 99213

== ENCOUNTER → 2024-04-29 08:17 | Outpatient (BNVA) | payer MEDICAID, SELFPAY | PROVIDERS: PCP Nurse Practitioner Family; Visit Provider Orthopaedic Surgery | DX: R25.2 Cramp and spasm (principal); M93.1 Kienbock's disease of adults; M79.89 Other specified soft tissue disorders; Z98.890 Other specified postprocedural states | CPT/HCPCS: 99212 ==

== ENCOUNTER 2024-05-28 07:45 | Outpatient (REF) | payer MEDICAID, SELFPAY ==
--- NOTE | ~2024-05-28 | CT_ITS ---
EXAMINATION: CTA head and neck with and without contrast CLINICAL INFORMATION: 1 month history of constant, worsening right pulsatile tinnitus COMPARISON: None available. TECHNIQUE: Test bolus sequences followed by intravenous administration of 70 mL of Omnipaque 350 contrast. Helical imaging was performed in the axial plane from the skull vertex to the thoracic inlet. Delayed postcontrast imaging of the head was also performed. The data was processed at the medical office technologist workstation for generation of MIP sequences. Angled MIPs and volume rendered reformatted images were also generated at an offline 3D workstation. Stenoses are assessed in accordance with NASCET criteria unless otherwise indicated. This CT examination was performed using dose optimization techniques as appropriate, variously including the following: *Automated exposure control *Adjustment of mA and/or kV according to patient size (this includes techniques or standardized protocols for targeted exams where dose is matched to indication/reason for exam; i.e. extremities or head) *Use of iterative reconstruction technique DLP: 2223 mGy-cm FINDINGS: BRAIN: No acute intracranial hemorrhage or infarct. The hudson-white matter differentiation is preserved. No midline shift or hydrocephalus. No acute extra-axial fluid collections. The osseous structures are unremarkable. No orbital pathology. Mild mucosal thickening of the paranasal sinuses. The mastoid air cells are clear. CTA NECK: Motion artifact is present. Three-vessel aortic arch. The innominate and bilateral subclavian arteries are patent. The origins and cervical segments of the common carotid arteries as well as the common carotid artery bifurcations are patent bilaterally. The cervical segments of the internal carotid arteries are also patent bilaterally. The origins and cervical segments of the vertebral arteries are patent bilaterally. No hemodynamically significant stenosis, dissection, or aneurysm. The visualized branches of the external carotid arteries are unremarkable. CTA HEAD: Anterior circulation: The petrous, cavernous, and supraclinoid segments of the internal carotid arteries are patent bilaterally. The major branches of the anterior and middle cerebral arteries as well as anterior communicating artery complex are patent. No large vessel occlusion, saccular aneurysm, or dissection. Posterior circulation: The intracranial vertebral arteries are patent bilaterally. The basilar artery is normal in course and caliber. The posterior cerebral and superior cerebellar arteries arise normally from the basilar summit. No aneurysm. On delayed imaging, the venous structures demonstrate normal contrast opacification. No filling defect. No abnormal intracranial enhancement. Soft tissues: No suspicious neck mass or cervical adenopathy. Lungs: Clear. Bones: No acute osseous abnormality. No lytic or blastic osseous lesions. Degenerative changes of the visualized spine. CT/CT angio head neck IMPRESSION: CT head demonstrates no acute intracranial hemorrhage identified. CTA head demonstrates no aneurysm, saccular aneurysm, dissection. No other findings to explain patient's symptoms. CTA neck demonstrates no hemodynamically significant stenosis, dissection, or aneurysm. Electronically signed by: Willi Chandra MD 05/28/2024 09:57 AM EST
[2024-05-28] MEDS: iohexoL 350 MG/ML 100 ML INFUS..BTL IV (08:39)
== END 2024-05-28 07:46 | disposition home or self-care (01) ==
LOC: HO.CT 07:45
PROVIDERS: PCP Nurse Practitioner Family; Visit Provider Emergency Medicine
DX: H93.A1 Pulsatile tinnitus, right ear (principal)
CPT/HCPCS: 70496; 70498; Q9967

== ENCOUNTER 2024-05-28 15:41 | Emergency (ER) | payer MEDICAID, SELFPAY ==
--- NOTE | ~2024-05-28 | CT_ITS ---
EXAMINATION: CT INNER EAR TEMPORAL BONES WITHOUT CONTRAST CLINICAL INFORMATION: Severe right sided mastoid pain.. COMPARISON: CTA head and neck from 05/28/2024. TECHNIQUE: Multidetector helical imaging of the temporal bones was performed in the axial plane without intravenous contrast. Generation of oblique axial and coronal reformatted projections. This CT examination was performed using dose optimization techniques as appropriate, variously including the following: *Automated exposure control. *Adjustment of mA and/or kV according to patient size (this includes techniques or standardized protocols for targeted exams where dose is matched to indication/reason for exam; i.e. extremities or head). *Use of iterative reconstruction technique. DLP: 237 mGy-cm FINDINGS: Right Temporal Bone: No periauricular soft tissue abnormalities. The external auditory canal is normal in appearance. Minimal smooth thickening of the inferior aspect of the tympanic membrane. The ossicular chain is intact. No soft tissue abnormality within the middle ear. The mastoid antrum and additional mastoid air cells remain well aerated. The sigmoid plate is intact. Normal ossification of the bony labyrinth. Normal appearance of the cochlea, vestibule, and semicircular canals. The vestibular aqueduct is normal. Normal appearance of the labyrinthine, geniculate, tympanic, and mastoid segments of the facial nerve. Normal appearance of the internal auditory canal. The cochlear aperture is normal. Normal appearance of the carotid canal and jugular foramen. Left Temporal Bone: No periauricular soft tissue abnormalities. The external auditory canal is normal in appearance. The tympanic membrane is normal. The ossicular chain is intact. No soft tissue abnormality within the middle ear. The mastoid antrum and additional mastoid air cells remain well aerated. The sigmoid plate is intact. Normal ossification of the bony labyrinth. Normal appearance of the cochlea, vestibule, and semicircular canals. The vestibular aqueduct is normal. Normal appearance of the labyrinthine, geniculate, tympanic, and mastoid segments of the facial nerve. Normal appearance of the internal auditory canal. The cochlear aperture is normal. Normal appearance of the carotid canal and jugular foramen. Other: The temporomandibular joints are normal in appearance bilaterally. No demonstrated intracranial abnormalities of the visualized skull base. No significant abnormalities of the visualized orbits. Moderate mucosal thickening of the paranasal sinuses. No abnormal contours of the visualized pharynx. CT/CT mastoid IMPRESSION: 1. Nonspecific minimal smooth thickening of the inferior aspect of the right-sided tympanic membrane. 2. Otherwise, normal CT appearance of the temporal bones. 3. Moderate sinonasal mucosal disease. Electronically signed by: Santos Molina DO 05/28/2024 06:13 PM LOUISA
[2024-05-28 15:47] VITALS: BP 156/76; PULSE 92; RESP 20; TEMP 36.1; O2SAT 100; BMI 28.2
--- NOTE | 2024-05-28 15:57 | ED_ITS ---
HPI - Ear Problem General Chief complaint: Ear Problems Stated complaint: Thumping and pressure in right ear Time Seen by Provider: 05/28/24 18:01 Source: patient and old records reviewed Mode of arrival: ambulatory Limitations: no limitations History of Present Illness ED Provider: KIAN BARROW Narrative: 48 yo female with PMH of back pain, arthritis here with c/o pulse in R ear for 1+ month had been on steroids and abx x 4 since then no relief. Started with earache not trauma. She states she cannot get in to ENT until August. She came today due to the pain she cannot take it anymore her whole side of the face hurts. Just had normal CTA this AM at our facililty with finalized read. Complaint: other Location: right ear Duration: constant Severity: severe Relieving factors: nothing Exacerbating factors: chewing, position of head and palpation Context: recent illness Discharge from ear: no Associated symptoms ear: tinnitus Treatment prior to arrival: other Related Data Home Medications ?Medication ?Instructions ?Recorded ?Confirmed acetaminophen 650 mg 650 mg PO Q12H 02/05/23 04/21/24 tablet,extended release albuterol sulfate 90 mcg/actuation 2 puff inhalation Q6H PRN 02/05/23 04/09/24 aerosol inhaler Shortness Of Breath Or Wheezing loratadine 10 mg tablet (Allergy 10 mg PO DAILY PRN Allergy Symptoms 02/05/23 04/21/24 Relief (loratadine)) montelukast 10 mg tablet 10 mg PO BEDTIME 02/05/23 04/21/24 (Singulair) omalizumab 150 mg subcutaneous 300 mg subcut Q4W 02/05/23 04/21/24 solution (Xolair) albuterol sulfate 2.5 mg/3 mL mg inhalation Q4H PRN wheezing 06/13/23 04/09/24 (0.083 %) solution for nebulization epinephrine 0.3 mg/0.3 mL IM DIRECTED PRN Allergic 06/13/23 04/09/24 injection, auto-injector Reaction famotidine 40 mg tablet 40 mg PO QNOON PRN Acid Reflux 06/13/23 04/21/24 budesonide-formoterol HFA 160 2 puff inhalation BID 11/13/23 04/21/24 mcg-4.5 mcg/actuation aerosol inhaler (Symbicort) Previous Rx's ?Medication ?Instructions ?Recorded bisacodyl 5 mg tablet,delayed 10 mg (2 x 5 mg) PO BEDTIME 2 days 01/01/24 release (Dulcolax (bisacodyl)) #4 tabs sucralfate 1 gram tablet (Carafate) 2 g (2 x 1 gram) PO .q noon #60 02/18/24 tabs omeprazole 40 mg capsule,delayed 40 mg PO DAILY #30 caps 05/27/24 release gabapentin 100 mg capsule 100 mg PO TID #60 caps 05/28/24 Allergies Allergy/AdvReac Type Severity Reaction Status Date / Time Penicillins [PENICILLINS] Allergy Unknown HIVES Verified 05/28/24 15:51 Review of Systems 2 Review of Systems: Constitutional : No Fever, No Chills, No Fatigue ENT/Mouth : No sore throat, No Rhinorrhea Eyes: No Eye Pain, No Swelling, No Redness, pos ear pain Cardiovascular : No Chest Pain, No SOB, No Dyspnea on Exertion Respiratory : No Cough, No Sputum Gastrointestinal : No Nausea, No Vomiting, No Diarrhea, No abdominal Pain Genitourinary : No Dysuria, No Urinary Frequency, No Hematuria, Musculoskeletal : No joint pain, No Myalgias, No Joint Swelling Skin : No Skin Lesions, No rash Neuro : No Weakness, No Numbness, No Dizziness, positive Headache All other systems reviewed and are negative [facility] Past Medical History Attestation statement: The following information was validated with the patient. Source: old records reviewed Medical History Back pain GERD (gastroesophageal reflux disease) Depression Asthma Bilateral knee pain Lumbar back pain with radiculopathy affecting right lower extremity Chronic urticaria Surgical History S/P right knee arthroscopy (03/20/24) H/O tubal ligation Hx of hand surgery (~2013) Family History Family History Father Throat cancer Family/Other Breast cancer Social History Social History Are you a primary managed care nurse to a significant other at home: No Do you presently have visiting nurse or other home services: No Alcohol intake: never Patient Tobacco Use Status: Current everyday Tobacco user Tobacco use type: Cigarette Cigarette Packs Per Day: 1.0 Cigarettes Per Day: 6 Substance Use Type: Marijuana Advance Directives: No Advance Directives Information Provided: Yes Do you have a plan to hurt others: No Plan Current occupational status: unemployed Current occupation: rt handed Physical Exam 2 Vital Signs: Vital Signs: Last Vital Signs Temp 97.7 F 05/28/24 18:00 Pulse 55 05/28/24 18:00 Resp 18 05/28/24 18:00 BP 114/73 05/28/24 18:00 Pulse Ox 100 05/28/24 18:00 O2 Del Method Room Air 05/28/24 18:00 BMI result Body Mass Index 28.2 Appearance: Alert. Oriented X3. No acute distress. Eyes: Pupils equal, round and reactive to light. ENT: Pharynx normal. R TM small crescent dark slit noted appears like an old dark scar vs FB it is tacked up against the ear drum otherwise no internal or external infectious signs and ext ear is normal her whole R side of face hurts to touch Neck: Normal inspection. Neck supple. CVS: Normal heart rate and rhythm. Pulses normal. Respiratory: No respiratory distress. Breath sounds normal. Abdomen: Soft and nontender. Skin: Skin warm and dry. Normal skin color. Extremities: No lower extremity edema. Neuro: Oriented X 3. No motor deficit. No sensory deficit. Course Course Course Narrative: This is a Rapid Medical Examination (RME) performed by Miguel Ángel Talley PA-C in triage. Full HPI, ROS, assessment and treatment plan per primary provider in the Main ED. 48 yo female presenting with right ear pain, tinnitus for a month. on her 4th course of abx. seen at . had CTA head/neck today. Plan: recon scan for mastoid? Medical Decision Making Medical Decision Making MDM Narrative: 48 yo female with R ear pain and tinnitus now face pain at this time she cannot take it anymore and has had normal CTA of head and neck, 4 rounds of abx, steroids no improvement at this time CT of mastoids ordered but this seems nerve related will start on gabapentin and refer to ENT. Differential Diagnosis Differential Diagnoses: The differential diagnosis associated with the presentation includes neuropathic pain, TM injury Admission/Observation Consideration of admission/observation: Escalation of care including admission/observation considered work up negative unfortunately she needs to see ENT will start on pain control and DC home Lab Data MDM Lab Attestation statement: I reviewed the patient's lab results. 05/28/24 16:30 05/28/24 16:30 Labs: Lab Results 05/28/24 Range/Units 16:30 WBC 6.3 (4.8-10.8) X10*3/uL RBC 5.02 (4.20-5.50) X10*6/uL Hgb 14.7 (12.0-16.0) g/dl Hct 44.7 (37.0-47.0) % MCV 89.0 (80.0-98.0) fL MCH 29.3 (27.0-33.0) pg MCHC 32.9 (31.0-35.0) g/dl RDW 13.8 (11.0-16.0) % Plt Count 220 (160-400) X10*3/uL MPV 11.2 (9.4-12.3) fL Immature Gran % (Auto) 0.2 (0.0-0.4) % Neut % (Auto) 55.5 (45-73) % Lymph % (Auto) 29.0 (20-40) % Collin % (Auto) 11.4 H (2-11) % Eos % (Auto) 3.4 (0-4) % Baso % (Auto) 0.5 (0-2) % Lymph # (Auto) 1.8 (1.2-4.9) X10*3/uL Collin # (Auto) 0.7 (0.1-1.2) X10*3/uL Eos # (Auto) 0.2 (0.0-0.4) X10*3/uL Baso # (Auto) 0.0 (0.0-0.2) X10*3/uL Abs Immat Gran (auto) 0.01 (0.00-0.03) X10*3/uL Absolute Neuts (auto) 3.5 (2.0-8.3) x10*3/uL Absolute Nucleated RBC 0.000 (0.0-0.012) X10*3/uL Nucleated RBC % (auto) 0.0 (0.0-0.2) /100WBC ESR 5 (0-20) MM/HR Sodium 142 (135-145) mmol/L Potassium 4.5 (3.3-5.1) mmol/L Chloride 105 (96-108) mmol/L Carbon Dioxide 30 H (22-29) mmol/L Anion Gap 12 (12-20) BUN 7 L (9-16) mg/dL Creatinine 0.71 (0.5-1.4) mg/dL Estim Creat Clear Calc 100.5 Estimated GFR > 60 Random Glucose 96 (60-115) mg/dL Calcium 9.3 D (8.4-10.2) mg/dL Magnesium 1.8 (1.6-2.6) mg/dL Total Bilirubin 0.3 (0.0-1.0) mg/dL Direct Bilirubin 0.1 (0.0-0.5) mg/dL AST 21 (5-31) U/L ALT 21 (0-31) U/L Alkaline Phosphatase 67 (39-117) U/L C-Reactive Protein 0.24 (< or = 0.50) mg/dL Total Protein 6.6 (6.5-8.0) g/dL Albumin 4.0 (3.5-5.0) g/dL Independent Interpretation I performed an independent interpretation of an: CT Scan (no signs of infection) Radiology Impression Discussion of test interpretation with radiology: I have reviewed the radiologist's reading. External Record Review External record reviewed: Outpatient record and Prior outpatient radiology Prescription Management I considered prescription management with: Pain Medication Discharge Plan Discharge Clinical Impression: Pulsatile tinnitus Patient Disposition: Home, Self-Care Instructions: Tinnitus (ED) Additional Instructions: CT scan today normal there is a dark area on R ear drum it could be old healed perforation or foreign body please see ENT as soon as possible return for any worsening symptoms or concerns. do not operate car on this medication Prescriptions: New gabapentin 100 mg capsule 100 mg PO TID Qty: 60 0RF No Action bisacodyl [Dulcolax (bisacodyl)] 5 mg tablet,delayed release (DR/EC) 10 mg PO BEDTIME 2 Days Qty: 4 0RF sucralfate [Carafate] 1 gram tablet 2 g PO .q noon Qty: 60 3RF omeprazole 40 mg capsule,delayed release(DR/EC) 40 mg PO DAILY Qty: 30 1RF Xolair 150 mg recon soln 300 mg subcut Q4W Rx Instructions: requires multiple injection sites; do not exceed 150 mg per injection site albuterol sulfate 90 mcg/actuation HFA aerosol inhaler 2 puff inhalation Q6H PRN (Reason: Shortness Of Breath Or Wheezing) acetaminophen 650 mg tablet extended release 650 mg PO Q12H loratadine [Allergy Relief (loratadine)] 10 mg tablet 10 mg PO DAILY PRN (Reason: Allergy Symptoms) montelukast [Singulair] 10 mg tablet 10 mg PO BEDTIME epinephrine 0.3 mg/0.3 mL auto-injector IM DIRECTED PRN (Reason: Allergic Reaction) albuterol sulfate 2.5 mg /3 mL (0.083 %) solution for nebulization inhalation Q4H PRN (Reason: wheezing) famotidine 40 mg tablet 40 mg PO QNOON PRN (Reason: Acid Reflux) budesonide-formoterol [Symbicort] 160-4.5 mcg/actuation HFA aerosol inhaler 2 puff inhalation BID Print Language: Mauritanian
[2024-05-28 16:37] LABS: MANUAL DIFF FLAG NO
[2024-05-28 16:39] LABS: Basophils Percent Auto 0.5 % (0-2); Eosinophils Absolute Auto 0.2 X10*3/uL (0.0-0.4); Eosinophils Percent Auto 3.4 % (0-4); Hematocrit 44.7 % (37.0-47.0); Hemoglobin 14.7 g/dl (12.0-16.0); Imm Gran Abs Auto 0.01 X10*3/uL (0.00-0.03); Imm Gran Pct Auto 0.2 % (0.0-0.4); Lymphocytes Absolute Auto 1.8 X10*3/uL (1.2-4.9); Mean Corpuscular HGB Conc 32.9 g/dl (31.0-35.0); Mean Corpuscular Hemoglobin 29.3 pg (27.0-33.0); Mean Platelet Volume 11.2 fL (9.4-12.3); Monocytes Absolute Auto 0.7 X10*3/uL (0.1-1.2); Monocytes Percent Auto 11.4 % (2-11); Neutrophils Absolute Auto 3.5 x10*3/uL (2.0-8.3); Neutrophils Percent Auto 55.5 % (45-73); Platelet Count 220 X10*3/uL (160-400); Red Blood Count 5.02 X10*6/uL (4.20-5.50); Red Cell Distribution Width 13.8 % (11.0-16.0); White Blood Count 6.3 X10*3/uL (4.8-10.8)
[2024-05-28 17:05] LABS: Anion Gap 12 (12-20); Aspartate Amino Transferase 21 U/L (5-31); Bilirubin Direct 0.1 mg/dL (0.0-0.5); Bilirubin Total 0.3 mg/dL (0.0-1.0); Blood Urea Nitrogen 7 mg/dL (9-16); C Reactive Protein 0.24 mg/dL (< or = 0.50); Calcium 9.3 mg/dL (8.4-10.2); Carbon Dioxide 30 mmol/L (22-29); Chloride 105 mmol/L (96-108); Creatinine Clr Calc Pharmacy 100.5; Estimated Glomerular Filt Rate > 60; Glucose Random 96 mg/dL (60-115); Magnesium 1.8 mg/dL (1.6-2.6); Potassium 4.5 mmol/L (3.3-5.1); Sodium 142 mmol/L (135-145); Total Protein 6.6 g/dL (6.5-8.0)
[2024-05-28 17:15] LABS: Alanine Aminotransferase 21 U/L (0-31); Alkaline Phosphatase 67 U/L (39-117)
[2024-05-28 17:40] LABS: Erythrocyte Sedimentation Rate 5 MM/HR (0-20)
[2024-05-28 18:00] VITALS: BP 114/73; PULSE 55; RESP 18; TEMP 36.5; O2SAT 100
[2024-05-28] MEDS: Morphine Sulfate Immed Release 15 MG TABLET PO (18:29)
[2024-05-28 18:35] VITALS: BP 114/73; PULSE 55; RESP 18; TEMP 36.5; O2SAT 100
== END 2024-05-28 18:35 | disposition home or self-care (01) ==
PROVIDERS: Physician Assistant; Emergency Provider Emergency Medicine; PCP Nurse Practitioner Family
DX: H93.A1 Pulsatile tinnitus, right ear (principal); J45.909 Unspecified asthma, uncomplicated; F17.210 Nicotine dependence, cigarettes, uncomplicated; Z79.899 Other long term (current) drug therapy
CPT/HCPCS: 36415; 70481; 80048; 80076; 83735; 85025; 85652; 86140; 99283; 99284

== ENCOUNTER 2024-06-02 10:40 | Outpatient (AMB) | payer MEDICAID, SELFPAY ==
--- NOTE | 2024-06-02 10:42 | MHC.OFFVIS ---
Vital Signs 06/02/24 10:44 Height 5 ft 5 in Weight 169 lb BMI 28.1 Intake Visit Reasons: PO: Rt Knee 03/20/24 DR Intake Note: Franchesca is a 48 year old female who presents with complaints of mild intermittent discomfort in her right knee after undergoing right knee arthroscopic surgery on 03/20/2024. She continues with her physical therapy exercises. She denies any fevers or chills. Allergies Penicillins [PENICILLINS] Allergy (Unknown, Verified 05/28/24 15:51) HIVES Medication List - Last Reconciled 06/02/24 by Ho Chahal MD acetaminophen ER 650 mg PO Q12H albuterol sulfate 90 mcg/actuation 2 puffs inhalation Q6H PRN albuterol sulfate mg inhalation Q4H PRN bisacodyl (Dulcolax (bisacodyl)) 10 mg (2 x 5 mg) PO BEDTIME 2 days budesonide-formoterol 160-4.5 mcg/actuation (Symbicort) 2 puffs inhalation BID epinephrine IM DIRECTED PRN famotidine 40 mg PO QNOON PRN gabapentin 100 mg PO TID loratadine (Allergy Relief (loratadine)) 10 mg PO DAILY PRN montelukast (Singulair) 10 mg PO BEDTIME omalizumab (Xolair) 300 mg subcut Q4W omeprazole 40 mg PO DAILY sucralfate (Carafate) 2 grams (2 x 1 gram) PO .q noon PFSH Medical History Back pain GERD (gastroesophageal reflux disease) Depression Asthma Bilateral knee pain Lumbar back pain with radiculopathy affecting right lower extremity Chronic urticaria Surgical History S/P right knee arthroscopy (03/20/24) H/O tubal ligation Hx of hand surgery (~2013) Family History Father Throat cancer Family/Other Breast cancer Social History Are you a primary hemodialysis patient care specialist to a significant other at home: No Do you presently have visiting nurse or other home services: No Alcohol intake: never Patient Tobacco Use Status: Current everyday Tobacco user Tobacco use type: Cigarette Cigarette Packs Per Day: 1.0 Cigarettes Per Day: 6 Substance Use Type: Marijuana Current occupational status: unemployed Current occupation: rt handed Physical Exam Vital Signs: BMI result Body Mass Index 28.1 Extrem Other: Right knee examination shows that the surgical incisions are well healed, no erythema, minimal crepitus with range of motion, minimal discomfort with range of motion, no instability Assessment & Plan Assessment & Plan (1) Right knee pain: Code(s): M25.561 - Pain in right knee Category: Medical Plan Ms. Chauhan continues to do well after undergoing right knee arthroscopic surgery on 03/20/2024. She will continue with her physical therapy exercises. She will gradually progress to activities as tolerated. She will follow up with me on an as-needed basis should her symptoms not plateau at an unacceptable level over the next few months. Feel free to call me at any time should questions regarding her orthopedic management arise. Coding Level of Care Code Global (89860) Diagnoses Right knee pain M25.561
[2024-06-02 10:44] VITALS: BMI 28.1
== END 2024-06-02 11:23 | disposition home or self-care (01) ==
PROVIDERS: PCP Nurse Practitioner Family; Visit Provider Orthopaedic Surgery
DX: M25.561 Pain in right knee (principal)
CPT/HCPCS: 99024

== ENCOUNTER → 2024-06-02 10:40 | Outpatient (BNVA) | payer MEDICAID, SELFPAY | PROVIDERS: PCP Nurse Practitioner Family; Visit Provider Orthopaedic Surgery | DX: M25.561 Pain in right knee (principal) | CPT/HCPCS: 99212 ==

== ENCOUNTER 2024-09-18 11:45 | Outpatient (AMB) | payer MEDICAID, SELFPAY ==
--- NOTE | 2024-09-18 11:52 | A.OFFVIS_ITS ---
Vital Signs 09/18/24 11:59 Height 5 ft 5 in Weight 176 lb 5.917 oz BMI 29.3 BP 102/69 Blood Pressure Location Rt brachial Position Sitting Pulse 76 Intake Visit Reasons: s/p EGD and colonoscopy Intake Note: Patient in office today in follow up s/p colonoscopy and EGD. CC: Patient c/o having multiple BMs daily, constipation, abdominal bloating, abd pain, and nausea. Denies other GI symptoms. She states that symptoms began after colonoscopy. Community Outreach Manager Required: No Community Outreach Manager Services: Community Outreach Manager Offered & Declined Accompanied by: Self / Same As Patient Allergies Penicillins [PENICILLINS] Allergy (Unknown, Verified 09/18/24 12:07) HIVES HPI HPI s/p EGD and colonoscopy: Details: Assessment & Plan (1 Epigastric pain: Code(s): R10.13 - Epigastric pain Category: Medical (2) Pre-op examination: Code(s): Z01.818 - Encounter for other preprocedural examination Category: Medical Plan She has had epigastric pain for over year - hx of 4 years NSAIDS. She can't eat anything w/o getting severe pain just below the epigastric area. She also has severe GERD amie with spaghetti sauce. She only eats a little late in the after noon. The pain will last for a couple of hours. The pain is sharp midline and at times will feel cramping. It is localized and dose not radiate. No cic or diarrhea. She feels bloated all the time. She has an uncle with gastrits. Maternal grandmother with GB disease and cholecystectomy. Except for her ibuprofen use there are no other medication preceding this, no specific illness, no sick contacts. She is only on o2o 20mg qd need to increase to 40mg bid - consider carafate. Getting EGD/colonoscopy as she is screening due. Ashtma controlled no cardiac There are no prior problems with anesthesia or sedation.. No ID problems. No FHX of stomach or colon cancer or polyps Return office visit in 4 weeks to evaluate the medication. Orders: Orders EGD/[place] Combo - GI Use Only Today R10.13 - Epigastric pain, Z01.818 - Encounter for other preprocedural examination H pylori Ag Stool Today R10.13 - Epigastric pain, Z01.818 - Encounter for other preprocedural examination Complete Blood Count Auto Diff Today R10.13 - Epigastric pain, Z01.818 - Encounter for other preprocedural examination US abdomen complete Today R10.13 - Epigastric pain Comprehensive Met. Panel Today R10.13 - Epigastric pain, Z01.818 - Encounter for other preprocedural examination Medications: New omeprazole 40 mg PO BID 60 caps 3RF 30 days US ABD 02/18/2024 FINDINGS: PANCREAS: Normal. ABDOMINAL AORTA: The proximal, mid, and distal segments are normal in caliber. INFERIOR VENA CAVA: Visualized portions are normal. LIVER: Normal. The liver is normal in size. The liver contour is normal. Parenchymal echogenicity is normal. No focal hepatic lesion. There is no intrahepatic biliary duct dilatation seen. GALLBLADDER: Normal. The gallbladder is physiologically distended without evidence of stones, sludge, polyps, wall thickening or pericholecystic fluid. COMMON BILE DUCT: Normal in caliber measuring 0.2 cm in diameter. RIGHT KIDNEY: Normal. No hydronephrosis. No renal calculi or focal parenchymal lesions. The kidney measures 11.0 cm in maximum dimension. LEFT KIDNEY: Normal. No hydronephrosis. No renal calculi or focal parenchymal lesions. The kidney measures 10.4 cm in maximum dimension. SPLEEN: Normal. The spleen measures 7.9 cm in maximum dimension. FREE FLUID: None. US/US abdomen complete IMPRESSION: Negative exam. A cause for the patient's epigastric pain has not been found.low. EGD/COLONOSCOPY EGD Findings:? * Esophagus:? Normal esophageal mucosa was noted. The Z-line was at 38 cm. Cold forceps biopsies were taken from lower esophagus for histological evidence of reflux. * Stomach:? Normal gastric mucosa was noted. Retroflexion was performed in the cardia. Random cold forceps biopsies were taken from the stomach. * Duodenum:? Erythema, small erosions in scant heme noted in the duodenal bulb and sweep. Cold forceps biopsies were taken from the duodenal bulb and 2nd portion of the duodenum to rule out celiac sprue. indings: Mucosa: Adherent liquid stool was noted throughout the colon, which was extensively flushed. A 1 cm plaque of whitish exudate was noted in the sigmoid colon at 25 cm ? cholesterol exudate. Cold forceps biopsies were taken and sent for histology. Cold forceps biopsies were also taken from the right and left side of the colon rule out microscopic colitis. Protruding lesions: * 1 sessile polyp of size 4 mm in transverse colon. Cold forceps polypectomy was performed. * Small internal hemorrhoids without stigmata of recent bleeding. Excavated lesions: * Mild diverticulosis in the left colon. Impression: 1. Normal esophagus (biopsy) 2. Normal stomach (biopsy) 3. Peptic duodenitis (biopsy) 4. Whitish plaque in sigmoid colon (biopsy) 5. One polyp removed 6. Internal hemorrhoids 7. Diverticulosis Recommendations:?? * Follow-up path results * Avoid NSAIDs * Agree with PPI therapy * H Pylori treatment if biopsies + * Repeat colonoscopy for CRC screening in 5 years if polyp is SSL, 7 years if benign or adenoma. BIOPSY ADDENDUM REPORT Addendum Addendum #1 (D): Additional tissue levels show no change in the diagnosis and no adenomatous dysplasia. Electronically Signed By: Lavern Watkins 04/28/24 0954 Diagnosis A. Duodenum, biopsy: Duodenal mucosa with predominantly preserved villi and mild features of chronic/non-specific duodenitis. B. Stomach, random, biopsy: Gastric antral and body mucosa with focal minimal chronic inactive gastritis; negative for H. pylori, intestinal metaplasia and dysplasia. C. Esophagus, lower, biopsy: Squamous mucosa with no specific change; no columnar mucosa present. D. Colon, abnormal mucosa at 25 cm , biopsy: Colonic mucosa with lymphoid aggregate, minor hyperplastic changes, and lamina propria macrophages and eosinophils (see comment). E. Colon, right, biopsy: Colonic mucosa with no specific change. F. Colon, transverse, polyp: Colonic mucosa with minor hyperplastic changes; no adenomatous dysplasia seen. G. Colon, left, biopsy: Colonic mucosa with lymphoid aggregate and no specific change. Comment: (D): The tissue may represent an inflamed hyperplastic polyp, tissue adjacent to a polyp, or reaction to previous mucosal injury. Additional tissue levels pending; addendum to follow. Comment: (D): The tissue may represent an inflamed hyperplastic polyp, tissue adjacent to a polyp, or reaction to previous mucosal injury. Additional tissue levels pending; addendum to follow Microscopic sections reviewed. AB/PAS on A shows focal mild evidence of chronic injury. Immunostain for H. pylori on B is negative. AB/PAS on B is negative for intestinal metaplasia. Controls stain appropriatel CORRESPONDENCE On 05/13/24 @ 11:08 Parekh Wrote To IglesiaSeptember (2) If the pain is severe, she should present to the ER as I can not do any STAT testing or imaging. On 05/13/24 @ 09:30 Enrique Moura Wrote To Iglesia (2) September, patient called today around 9 30 am experiencing severe abdominal pain ; I added pt for your 9 am 05/14/24. Can you confirm this is ok with you ? On 05/06/24 @ 13:24 Diana Stevens Wrote To Parekh (2) Pls let her know biopsies from upper endoscopy noted mild inflammation in the small intestine, she should continue Omeprazole as prescribed by September. No bacteria (H Pylori noted in stomach). Polyp removed was benign, we recommend a repeat colonoscopy in 7 years. On 05/13/24 @ 11:08 ParekhSeptember Wrote To Iglesia (2) If the pain is severe, she should present to the ER as I can not do any STAT testing or imaging. On 05/13/24 @ 09:30 Enrique Moura Wrote To Iglesia (2) September, patient called today around 9 30 am experiencing severe abdominal pain ; I added pt for your 9 am 05/14/24. Can you confirm this is ok with you ? On 05/06/24 @ 13:24 Diana Stevens Wrote To Iglesia (2) Pls let her know biopsies from upper endoscopy noted mild inflammation in the small intestine, she should continue Omeprazole as prescribed by September. No bacteria (H Pylori noted in stomach). Polyp removed was benign, we recommend a repeat colonoscopy in 7 years. Thanks September, On 05/05/24 @ 16:48 Adeline Child Wrote To Diana Stevens Dr. Stevens can you please review colonoscopy results and let me know if we can let the patient know? Thank you! On 05/05/24 @ 10:15 SimmonsAnuja jones Wrote To Adeline Child Pt asked if you can have a doctor or you call her for the results @ [phone], she doesn't want to keep waiting. TODAYS VISIT SHe is agreeable to a 7 year repeat. The procedure was well tolerated. The results were explained and the patient is agreeable to the follow-up interval as stated. Education was provided to tell any 1st degree relatives about their fin dings to be sure that they are screened by age 45. Educated that they will be put on a recall list when it is time for their repeat scope but should they move out of state or away from the hospital they will need to remember along with their primary to repeat the procedure in a timely fashion to avoid any adverse complications. She has had severe CIC since the colonoscopy, with rabbit pellet stools, straining and rectal pain. She also has severe bloating and gas. No other new medications, no preceding illness, she eats a LOT of veggies with good fiber, no white rice or breads, and drinks a lot of water. I suggest that her gut dandy possibly has been disrupted, start probiotic, fiber supplement, will get labs to exclude thly roid disease, Celiac, IBD. Start Miralax. ROV next available. [facility] Medical History (Updated 09/18/24 @ 12:36 by ALPESH Alvarenga) Back pain GERD (gastroesophageal reflux disease) Depression Asthma Bilateral knee pain Lumbar back pain with radiculopathy affecting right lower extremity Chronic urticaria Surgical History (Updated 09/18/24 @ 12:04 by SHERLEY Shane) History of esophagogastroduodenoscopy (EGD) H/O colonoscopy S/P right knee arthroscopy (03/20/24) H/O tubal ligation Hx of hand surgery (~2013) Family History Father Throat cancer Family/Other Breast cancer Social History Are you a primary animal care assistant to a significant other at home: No Do you presently have visiting nurse or other home services: No Alcohol intake: never Patient Tobacco Use Status: Current everyday Tobacco user Tobacco use type: Cigarette Cigarette Packs Per Day: 1.0 Cigarettes Per Day: 6 Substance Use Type: Marijuana Current occupational status: unemployed Current occupation: rt handed Review of Systems Const Denies fatigue, Denies fever(s), Denies night sweats, Reports poor appetite and Denies weight loss Eyes Details: glasses Reports requires corrective lenses ENT Reports Normal hearing present, Denies dental pain, Denies dysphagia, Denies hearing loss, Denies mouth pain, Denies odynophagia, Denies throat swelling, Denies tongue swelling and Reports other (Dentition adequate) Card Reports no additional complaints Resp Reports no additional complaints GI Details: Reports abdominal pain, Denies melena, Reports bloating, Denies hematochezia, Reports constipation, Denies GI cramping, Denies dysphagia, Denies excessive flatus, Reports early satiety, Denies heartburn, Denies diarrhea, Denies nausea, Denies odynophagia, Denies vomiting and Denies hematemesis Skin/Breast Denies pruritus, Denies lesions, Denies rash and Denies jaundice Neuro Reports Normal hearing present and Denies Abnormal speech present Endo Denies fatigue Aller/Immun Denies throat swelling and Denies tongue swelling Physical Exam Vital Signs: Last Vital Signs Pulse 76 09/18/24 11:59 BP 102/69 09/18/24 11:59 BMI result Body Mass Index 29.3 Const General: cooperative, no acute distress, well developed and well groomed Nutritional Appearance: well nourished and obese Orientation/consciousness: oriented to person, oriented to place and oriented to time Limitations: No language barrier HEENT Head: Yes normocephalic and Yes atraumatic Eyes General: appearance normal, both eyes and all related structures Pupils: Equal, round and reactive pupils present Neck Neck: Yes normal visual inspection and Yes no lymphadenopathy Thyroid: Thyroid normal Resp Effort & Inspection: normal respiratory effort and able to speak in complete sentences Auscultation: clear to auscultation bilaterally Cardio Rate: regular rate Rhythm: regular rhythm Heart sounds: Normal, physiologic split S2 sound present Peripheral pulses: radial pulses present and posterior tibial pulses present GI Inspection: Yes distended, No Abdominal panniculus present and Yes obesity Palpation (GI): Soft to palpation, Tenderness to palpation present (GI) periumbilically, no guarding, not rigid and No hepatosplenomegaly present Percussion: Yes normal to percussion Auscultation: normal bowel sounds Rectal Exam - Female: deferred Skin General skin exam: no rashes or lesions noted, turgor normal, skin not dry, no jaundice, No spider nevi and no striae Rashes: no rashes Nails: normal Neuro General: oriented to person, oriented to place and oriented to time Cranial nerves: Yes Equal, round and reactive pupils present and Yes Normal hearing present Speech: No Abnormal speech present Extrem General: Yes normal to inspection, No clubbing, No cyanosis and No edema Psych Appearance: grossly normal and well kempt Mental Status: mental status grossly normal Speech and movement: Normal speech and movement present Affect: normal affect Attitude: cooperative Thought process: Normal thought process present and not confabulating Thought content: Normal thought content present Insight: Fair insight present (Psych) Judgement: Fair judgement present (Psych) Assessment & Plan Assessment & Plan (1) Constipation: Code(s): K59.00 - Constipation, unspecified Category: Medical (2) Duodenal ulcer: Code(s): K26.9 - Duodenal ulcer, unspecified as acute or chronic, without hemorrhage or perforation Category: Medical (3) Inflammation of colonic mucosa: Code(s): K52.9 - Noninfective gastroenteritis and colitis, unspecified Category: Medical Plan SHe is agreeable to a 7 year repeat. The procedure was well tolerated. The results were explained and the patient is agreeable to the follow-up interval as stated. Education was provided to tell any 1st degree relatives about their findings to be sure that they are screened by age 45. Educated that they will be put on a recall list when it is time for their repeat scope but should they move out of state or away from the hospital they will need to remember along with their primary to repeat the procedure in a timely fashion to avoid any adverse complications. She has had severe CIC since the colonoscopy, with rabbit pellet stools, straining and rectal pain. She also has severe bloating and gas. No other new medications, no preceding illness, she eats a LOT of veggies with good fiber, no white rice or breads, and drinks a lot of water. I suggest that her gut dandy possibly has been disrupted, start probiotic, fiber supplement, will get labs to exclude thly roid disease, Celiac, IBD. Start Miralax. ROV next available Orders: Orders Transglutaminase Ab IgG Today K52.9 - Noninfective gastroenteritis and colitis, unspecified TSH reflex Free T4 Today K52.9 - Noninfective gastroenteritis and colitis, unspecified Transglutaminase IgA Today K52.9 - Noninfective gastroenteritis and colitis, unspecified C Reactive Protein Today K52.9 - Noninfective gastroenteritis and colitis, unspecified Medications: New 2 polyethylene glycol 3350 (Miralax) 17 grams PO .qhs 238 grams 3RF 30 days K59.00 - Constipation, unspecified pantoprazole (Protonix) 40 mg PO BID 60 tabs 6RF 30 days K26.9 - Duodenal ulcer, unspecified as acute or chronic, without hemorrhage or perforation Refilled sucralfate (Carafate) 2 grams (2 x 1 gram) PO .q noon 60 tabs 3RF Discontinued bisacodyl (Dulcolax (bisacodyl)) Discontinued Reason: Patient Completed Course 10 mg (2 x 5 mg) PO BEDTIME 2 days 4 tabs 0RF omeprazole Discontinued Reason: Doctor's Order 40 mg PO BID 90 days 180 caps 3RF Coding Level of Care Code Est Pt Level 4 (05263) Diagnoses Constipation K59.00 Duodenal ulcer K26.9 Inflammation of colonic mucosa K52.9 Time Spent (min) 34
[2024-09-18 11:59] VITALS: BP 102/69; PULSE 76; BMI 29.3
--- OUTSIDE RECORDS SUMMARY | 2024-09-18 12:41 | XMS_ITS | Clinical Summary ---
Author Organization 175 [facility] Address [address] [place] [phone] Phone Care Team Providers Care Surgery Specialist Name Role Phone Physician, Pcp Unknown Primary Care Provider Corin vailable Allergies Active Allergy Reactions Criticality Noted Date Comments Penicillins 06/15/2024 Active Problems Problem Noted Date Diagnosed Date Idiopathic urticaria 06/09/2024 Lumbar radiculopathy, chronic 06/09/2024 Lumbar spondylosis 06/09/2024 Arthritis of knee 06/09/2024 Mild intermittent asthma 06/09/2024 Low vision 06/09/2024 Epigastric pain 06/09/2024 Acute recurrent tonsillitis 06/09/2024 Depression 06/09/2024 Abnormal PFTs 06/09/2024 Chronic pain of right wrist 06/09/2024 Immunizations Name Administration Dates Next Due COVID-19 (Moderna/Spikevax) 12yo and older 05/12 Social History Tobacco Use Types Packs/Day Years Used Date Smoking Tobacco: Never Assessed Comments Unknown Sex and Gender Information Value Date Recorded Sex Assigned at Not on file Legal Sex Female 3:57 PM EDT Gender Identity Not on file Sexual Orientation Not on file Last Filed Vital Signs Vital Sign Reading Time Taken Comments Blood Pressure - - Pulse - - Temperature - - Respiratory Rate - - Oxygen Saturation - - Inhaled Oxygen Concentration - - Weight 78 kg (172 lb) 06/15/2024 10:29 AM EST Height - - Body Mass Index - - Plan of Treatment Health Maintenance Due Date Last Done Comments Breast Cancer Screening 1976 Hepatitis B Vaccines (1 of 3 - 19+ 3-dose series) 09/12/1995 Pneumococcal Vaccine: Pediatrics (0 to 5 Years) and At-Risk Patients (6 to 64 Years) (1 of 2 - PCV) 09/12/1995 Cervical Cancer Screening: P ap Smear 1997 COVID-19 Vaccine (2023-2 5 season) 2024 05/12/2022, 11/26/2020, 11/05/2020 Colorectal Cancer Screening: Colonoscopy 03/27/2024 HIV Screening 03/27/2024 Hepatitis C Screening 03/27/2024 Social Influencers of Health Screening 03/27/2024 Depression Screening 02/04/2025 02/05/2024 Influenza Vaccine (Season Ended) 2025 Cholesterol Screening (Lipid Panel) 02/01/2028 01/31/2023 DTaP,Tdap,and Td Vaccines (2 - Td or Tdap) 03/27/2032 03/27/2022 HIB Vaccines Aged Out No longer eligi ble based on patient's age to complete this topic HPV Vaccines Aged Out No longer eligi ble based on patient's age to complete this topic Hepatitis A Vaccines Aged Out No long er eligible based on patient's age to complete this topic IPV Vaccines Aged Out No longer eligi ble based on patient's age to complete this topic MMR Vaccines Aged Out No longer eligi ble based on patient's age to complete this topic Meningococcal ACWY Vaccine Aged Out N o longer eligible based on patient's age to complete this topic Meningococcal B Vaccine Aged Out No l onger eligible based on patient's age to complete this topic RSV Immunization Patients Under 20 months Aged Out No longer eligible b ased on patient's age to complete this topic Varicella Vaccines Aged Out No longer eligible based on patient's age to complete this topic Insurance MEDICAID - [place] Care Teams Surgery Specialist Relationship Specialty Start Date End Date Physician, Pcp Unknown PCP - General 06/01/24
--- OUTSIDE RECORDS SUMMARY | 2024-09-18 12:41 | XMS_ITS | Encounter Summary ---
Author Organization [employer] Address [address] [facility] [address] [place] [address] Care Team Providers Care Lidder Name Role Phone Carmen Arauz NP Primary Care Provider [phone] Reason for Visit * Reason Comments Med Refill Encounter Details Date Type Department Care Team ([facility] st Contact Info) Description 05/18/2024 Refill [facility] [address] [place], [place] [phone] Judith Parker MD [address] [place], [place] [phone] Mild persistent asthma without complication Social History Tobacco Use Types Packs/Day Years Used Date Smoking Tobacco: Every Day Cigarettes Passive Smoke Exposure: Current Smokeless Tobacco: Never Alcohol Use Standard Drinks/Week Comments Never 0 (1 standard drink = 0.6 oz pur e alcohol) Depression Answer Date Recorded Patient Health Questionnaire-9 Score 9 02/05/2024 Patient Health Questionnaire-9 Score 9 02/05/2024 Last PHQ-9: Questionnaire Data Not on file 0 02/05/2024 Housing Stability Answer Date Recorded What is your housing situation today? I have jayla hopkins 04/08/[address] you li ve. Do you have problems with any of the following? None of the above 04/08/2023 Food Insecurity Answer Date Recorded Within the past 12 months, y ou worried that your food would run out before you got money to buy more: Never True 04/08/2023 Within the past 12 months,th e food you bought just didn't last and you didn't have enough money to get more: Never True Transportation Answer Date Recorded In the past 12 months, has l ack of transportation kept you from medical appts, meetings, work or from getting things needed for daily living? No 04/08/2023 Utilities Answer Date Recorded In the past 12 months, has t he electric, gas, oil or water company threatened to shut off services in your home? No 04/08/2023 Depression Answer Date Recorded Patient Health Questionnaire-2 Score 2 02/05/2024 Comments Unknown Sex and Gender Information Value Date Recorded Sex Assigned at Female 04/09/2022 10:14 AM EDT Legal Sex Female 10:14 AM EDT Gender Identity Female 04/09/2022 10:14 AM EDT Sexual Orientation Straight 05/30/2023 12 :03 AM EST documented as of this encounter Plan of Treatment Upcoming Encounters Date Type Department Care Team (Late st Contact Info) Description 09/21/2024 11:00 AM EDT Office Visit [address] [address] 10/19/2024 2:30 PM EDT Office Visit [address] [address] Carmen Arauz NP [address] [place] [address] documented as of this encounter Visit Diagnoses Diagnosis Mild persistent asthma without complication documented in this encounter Additional Health Concerns Assessment Noted Time PHQ-9 Depression Total Score: 9 02/05/20 24 8:58 AM EDT documented as of this encounter Care Teams Lidder Relationship Specialty Start Date End Date Carmen Arauz NP [address] [place] [address] PCP - General Family Medicine 09/16/23 documented as of this encounter
--- OUTSIDE RECORDS SUMMARY | 2024-09-18 12:41 | XMS_ITS | Encounter Summary ---
Author Organization [employer] Address [address] [facility] [address] 7[address] [place] [address] Care Team Providers Care Hand Roller Name Role Phone Carmen Arauz NP Primary Care Provider [phone] Reason for Visit * Reason Onset Date Comments Med Refill 11/25/2023 Encounter Details Date Type Department Care Team (Late st Contact Info) Description 11/25/2023 Refill [facility] 230 [place] [address] Payton Mcintyre MD 230 [place] [address] Social History Tobacco Use Types Packs/Day Years Used Date Smoking Tobacco: Every Day Cigarettes Passive Smoke Exposure: Current Smokeless Tobacco: Never Alcohol Use Standard Drinks/Week Comments Never 0 (1 standard drink = 0.6 oz pur e alcohol) Depression Answer Date Recorded Patient Health Questionnaire-9 Score 0 01/18/2023 Housing Stability Answer Date Recorded What is [...] Answer Date Recorded Patient Health Questionnaire-2 Score 0 01/18/2023 Comments Unknown Sex and Gender Information Value [...] Description 09/21/2024 11:00 AM EDT Office Visit [facility] [address] [place] [address] 10/19/2024 2:30 PM EDT Office Visit [address] [address] Carmen Arauz NP [address] [place] [address] documented as of this encounter Visit Diagnoses Not on filedocumented in this encounter Additional Health Concerns Assessment Noted Time PHQ-9 Depression Total Score: 0 01/19/20 23 9:07 AM EDT documented as of this encounter Care Teams Hand Roller Relationship Specialty Start Date End Date Carmen Arauz NP [address] [place] [address] PCP - General Family Medicine 09/16/23 documented as of this encounter
--- OUTSIDE RECORDS SUMMARY | 2024-09-18 12:41 | XMS_ITS | Encounter Summary ---
Author Organization [employer] Address [address] [facility] [address] [facility] [address] 7[address] [place] [address] Care Team Providers Care Senior Software Development Manager Name Role Phone Carmen Arauz NP Primary Care Provider [phone] Reason for Visit * Reason Onset Date Comments Med Refill 12/15/2023 Encounter Details Date Type Department Care Team ([facility] st Contact Info) Description 12/15/2023 Refill [facility] 230 [place], [place] [phone] Payton Mcintyre MD 230 [place] [address] Social History Tobacco Use Types Packs/Day Years [...] Description 09/21/2024 11:00 AM EDT Office Visit [facility] [address] [place] [address] 10/19/2024 2:30 PM EDT Office Visit [address] [address] Carmen Arauz NP [address] [place] [address] documented as of this encounter Visit Diagnoses Not on filedocumented in this encounter Additional Health Concerns Assessment Noted Time PHQ-9 Depression Total Score: 0 01/19/20 23 9:07 AM EDT documented as of this encounter Care Teams Senior Software Development Manager Relationship Specialty Start Date End Date Carmen Arauz NP [address] [place] [address] PCP - General Family Medicine 09/16/23 documented as of this encounter
--- OUTSIDE RECORDS SUMMARY | 2024-09-18 12:41 | XMS_ITS | Encounter Summary ---
Author Organization [employer] Address [address] [facility] [address] [facility] [address] 7t [place] [address] Care Team Providers Care Makeup Sales Consultant Name Role Phone Carmen Arauz NP Primary Care Provider [phone] Reason for Visit * Reason Onset Date Comments Med Refill 05/17/2023 Encounter Details Date Type Department Care Team (Late st Contact Info) Description 05/17/2023 Refill [facility] 230 [place], [place] [phone] Emerita Nash DO 230 [place], [place] [phone] Social History Tobacco Use Types Packs/Day Years [...] Description 09/21/2024 11:00 AM EDT Office Visit [facility] [address] [place] [address] 10/19/2024 2:30 PM EDT Office Visit [address] [address] Carmen Arauz NP [address] [place] [address] documented as of this encounter Visit Diagnoses Not on filedocumented in this encounter Additional Health Concerns Assessment Noted Time PHQ-9 Depression Total Score: 0 01/19/20 23 9:07 AM EDT documented as of this encounter Care Teams Makeup Sales Consultant Relationship Specialty Start Date End Date Carmen Arauz NP [address] [place] [address] PCP - General Family Medicine 09/16/23 Alla Oliveira Beamer Helper 07/11/23 09/16/23 documented as of this encounter
--- OUTSIDE RECORDS SUMMARY | 2024-09-18 12:41 | XMS_ITS | Encounter Summary ---
Author Organization [employer] Address [address] 7[address] [place] [address] Care Team Providers Care Manager Brand Name Role Phone Carmen Arauz NP Primary Care Provider [phone] Reason for Visit * Reason Onset Date Comments Med Refill 11/25/2023 Encounter Details Date Type Department Care Team (Late st Contact Info) Description 11/25/2023 Refill [facility] 230 [place], [place] [phone] Judith Parker MD 230 [place], [place] [phone] Mild persistent asthma without complication Social History [...] Description 09/21/2024 11:00 AM EDT Office Visit [facility] [address] [place] [address] 10/19/2024 2:30 PM EDT Office Visit [address] [address] Carmen Arauz NP [address] [place] [address] documented as of this encounter Visit Diagnoses Diagnosis Mild persistent asthma without complication documented in this encounter Additional Health Concerns Assessment Noted Time PHQ-9 Depression Total Score: 0 01/19/20 23 9:07 AM EDT documented as of this encounter Care Teams Manager Brand Relationship Specialty Start Date End Date Carmen Arauz NP [address] [place] [address] PCP - General Family Medicine 09/16/23 documented as of this encounter
--- OUTSIDE RECORDS SUMMARY | 2024-09-18 12:41 | XMS_ITS | Encounter Summary ---
Author Organization [employer] Address [address] 7t [place] [address] Care Team Providers Care Project Eng Name Role Phone Carmen Arauz NP Primary Care Provider [phone] Reason for Visit * Reason Onset Date Comments Med Refill 02/18/2024 Encounter Details Date Type Department Care Team ([facility] st Contact Info) Description 02/18/2024 Refill [facility] 230 [place], [place] [phone] Payton Mcintyre MD 230 [place] [address] Social History Tobacco Use Types Packs/Day Years [...] Description 09/21/2024 11:00 AM EDT Office Visit [address] [address] 10/19/2024 2:30 PM EDT Office Visit [address] [address] Carmen Arauz NP 230 [place] [address] documented as of this encounter Visit Diagnoses Not on filedocumented in this encounter Additional Health Concerns Assessment Noted Time PHQ-9 Depression Total Score: 9 02/05/20 24 8:58 AM EDT documented as of this encounter Care Teams Project Eng Relationship Specialty Start Date End Date Carmen Arauz NP [address] [place] [address] PCP - General Family Medicine 09/16/23 documented as of this encounter
--- OUTSIDE RECORDS SUMMARY | 2024-09-18 12:41 | XMS_ITS | Encounter Summary ---
Author Organization [employer] Address [address] [facility] [address] 7t [place] [address] Care Team Providers Care Vice President Digital Strategist Name Role Phone Carmen Arauz NP Primary Care Provider [phone] Reason for Visit * Reason Onset Date Comments Nurse Triage 05/26/2024 Encounter Details Date Type Department Care Team ([facility] st Contact Info) Description 05/26/2024 Telephone [facility] 230 [place], [place] [phone] Carmen Arauz, YANNA 230 [place], [place] [phone] Nurse Triage Social History Tobacco Use Types Packs/Day Years [...] AM EST documented as of this encounter Miscellaneous Notes * Telephone Encounter - Elza Fuchs RN - 05/26/2024 11:26 AM EST Triage call Pt was last seen in [facility] 05/25/24. Pt has been doing everything as instructed. Pt is taking antibiotics and prednisone as prescribed. Pt reports not using flonase because it malhotra when Ihave used it. Pt reports right ear continues to have pain and nasal congestion is worse. Pt is taking tylenol for ear pain and drinking adequate liquids 6-8 glasses daily. Pt is advised will send this information to Dr. Coulter who saw Pt yesterday for follow up prn. Pt agrees with this disposition and plan. Protocol Used: Information Only Call - No Triage (Adult) Protocol-Based Disposition: Callback or Video Visit by PCP Today Video visit not offered Positive Triage Question: * Nursing judgment * All higher-acuity triage questions were negative Care Advice Discussed: * Reasons To Call Back - New symptoms develop - You have more questions - You become worse * Telephone Encounter - Fercho Jones - 05/26/2024 11:08 AM EST Tc from pt returning call regarding prior message. Contact pt at [phone] * Telephone Encounter - Adalid Joe - 05/26/2024 10:57 AM EST Symptom: Earache Outcome: Schedule an urgent appointment (within 1 hour) or talk to a nurse or provider soon Reason: Severe pain now The caller accepted this outcome. documented in this encounter Plan of Treatment Upcoming Encounters Date Type Department Care Team (Late st Contact Info) Description 09/21/2024 11:00 AM EDT Office Visit [facility] [address] [place] [address] 10/19/2024 2:30 PM EDT Office Visit [address] [address] Carmen Arauz NP [address] [place] [address] documented as of this encounter Visit Diagnoses Not on filedocumented in this encounter Additional Health Concerns Assessment Noted Time PHQ-9 Depression Total Score: 9 02/05/20 8:58 AM EDT documented as of this encounter Care Teams Vice President Digital Strategist Relationship Specialty Start Date End Date Carmen Arauz NP [address] [place] [address] PCP - General Family Medicine 09/16/23 documented as of this encounter
--- OUTSIDE RECORDS SUMMARY | 2024-09-18 12:41 | XMS_ITS | Encounter Summary ---
Author Organization [employer] Address [address] [facility] [facility] [address] [place] [address] Care Team Providers Care Formulation Technician Name Role Phone ReglaCarmen YANNA Primary Care Provider [phone] Encounter Details Date Type Department Care Team ([facility] Contact Info) Description 09/03/[address] [facility] [address] [place] [address] [phone] Judith Parker MD 230 [place], [place] [phone] Social History Tobacco Use Types Packs/Day Years Used Date Smoking Tobacco: Every Day Cigarettes Passive Smoke Exposure: Current Smokeless Tobacco: Never Alcohol Use Standard Drinks/Week Comments Never 0 (1 standard drink = 0.6 oz pur e alcohol) Comments Unknown Sex and Gender Information Value Date Recorded Sex Assigned at Female 04/09/2022 10:14 AM EDT Legal Sex Female 10:14 AM EDT Gender Identity Female 04/09/2022 10:14 AM EDT Sexual Orientation Straight 05/30/2023 12 :03 AM EST COVID-19 Exposure Response Date Recorded In the last 10 days, have yo u been in contact with someone who was confirmed or suspected to have Coronavirus/COVID-19? No / Unsure 08/30/2022 8:34 AM EDT documented as of this encounter Plan of Treatment Upcoming Encounters Date Type Department Care Team ([facility] Contact Info) Description 09/21/2024 11:00 AM EDT Office [address] [facility] [address] [place] [phone] 10/19/2024 2:30 PM EDT Office Visit [facility] [address] [place] [address] Carmen Arauz NP [address] [place] [address] documented as of this encounter Visit Diagnoses Not on filedocumented in this encounter Care Teams Formulation Technician Relationship Specialty Start Date End Date Carmen Arauz NP [address] [place] [address] PCP - General Family Medicine 09/16/23 Alla Oliveira Grinder Machine Setter 07/11/23 09/16/23 documented as of this encounter
--- OUTSIDE RECORDS SUMMARY | 2024-09-18 12:41 | XMS_ITS | Encounter Summary ---
Author Organization [employer] Address [address] [facility] [address] [place] [address] Care Team Providers Care Narrative Writer Name Role Phone Carmen Arauz NP Primary Care Provider [phone] Reason for Visit * Reason Onset Date Comments Nurse Triage 05/15/2024 Encounter Details Date Type Department Care Team ([facility] st Contact Info) Description 05/15/2024 Telephone [facility] 230 [place], [place] [phone] Carmen Arauz, YANNA 230 [place], [place] [phone] Nurse Triage Social History Tobacco Use Types [...] encounter Miscellaneous Notes * Telephone Encounter - Ankita Bhatia LPN - 05/15/2024 9:01 AM EST Triage call to patient who reports that she has ongoing noise in her right ear. Was treated in April with ABT,prednisone and use of flonase. Patient completed all medication. Has a blowing throbbing on in the right ear and causes her to have right sided head pain. Occasional nausea and dizziness. No facial weakness drooping or numbness. No fever. Is not taking the sudafed as previously ordered. Encouraged to do so. Has been taking Tylenol as needed. Has preexisting referral for ENT from 05/17/23 for a tonsalith. Appt is scheduled for 2024. Patient wants evaluation of ear issue to be added to ENT visit. Also wants to see PCP for treatment pending referral. No PCP or Team appts available at time of call. Team tasked to follow with patient. Patient reaced at [phone]. Protocol Used: Tinnitus (Adult) Protocol-Based Disposition: See in Office or Video Visit within 3 Days Override (Final) Disposition: Discuss with PCP and Callback by Nurse Today Override Reason: Other Override Notes: ENT referral for previous issue but appt. not until 2024 Positive Triage Questions: * Moderate-Severe tinnitus (i.e., interferes with work, school, or sleep) * Symptoms only or mainly in 1 ear (unilateral tinnitus) * Patient wants to be seen * All higher-acuity triage questions were negative Care Advice Discussed: * Reassurance and Education - Hearing Pounding Sound or Soft Tinnitus * Reasons To Call Back - Tinnitus is very bothersome; or tinnitus interferes with work, school, or other activities - Decreased hearing - Earache or dizziness - You become worse * Telephone Encounter - Fercho Jones - 05/15/2024 8:47 AM EST Symptoms: Earache, Headache Outcome: Transfer to a nurse or provider NOW! Reason: Sudden worst headache of life now The caller accepted this outcome. Contact pt at [phone] documented in this encounter Plan of Treatment Upcoming Encounters Date Type Department Care Team (Late st Contact Info) Description 09/21/2024 11:00 AM EDT Office Visit [facility] [address] [place] [address] 10/19/2024 2:30 PM EDT Office Visit [facility] [address] [place] [address] Carmen Arauz NP [address] [place] [address] documented as of this encounter Visit Diagnoses Not on filedocumented in this encounter Additional Health Concerns Assessment Noted Time PHQ-9 Depression Total Score: 9 02/05/20 24 8:58 AM EDT documented as of this encounter Care Teams Narrative Writer Relationship Specialty Start Date End Date Carmen Arauz NP [address] [place] [address] PCP - General Family Medicine 09/16/23 documented as of this encounter
--- OUTSIDE RECORDS SUMMARY | 2024-09-18 12:41 | XMS_ITS | Encounter Summary ---
Author Organization [employer] Address [address] [facility] [address] [place] [address] Care Team Providers Care Plasticator Name Role Phone Carmen Arauz NP Primary Care Provider [phone] Reason for Visit * Reason Onset Date Comments Med Refill 06/22/2024 Encounter Details Date Type Department Care Team ([facility] st Contact Info) Description 06/22/2024 Refill [facility] 230 [place] [address] Ashwini Hogue MD [address] [place] [address] Social History Tobacco Use Types Packs/Day Years [...] Description 09/21/2024 11:00 AM EDT Office Visit [address] [address] 10/19/2024 2:30 PM EDT Office Visit [address] [address] Carmen Arauz NP 230 [place] [address] documented as of this encounter Visit Diagnoses Not on filedocumented in this encounter Additional Health Concerns Assessment Noted Time PHQ-9 Depression Total Score: 9 02/05/20 24 8:58 AM EDT documented as of this encounter Care Teams Plasticator Relationship Specialty Start Date End Date Carmen Arauz NP [address] [place] [address] PCP - General Family Medicine 09/16/23 documented as of this encounter
--- OUTSIDE RECORDS SUMMARY | 2024-09-18 12:41 | XMS_ITS | Encounter Summary ---
Author Organization [employer] Address [address] 7[address] [place] [address] Care Team Providers Care Pressure Testing Technician Name Role Phone Carmen Arauz NP Primary Care Provider [phone] Reason for Visit * Reason Onset Date Comments Med Refill 06/22/2024 Encounter Details Date Type Department Care Team ([facility] st Contact Info) Description 06/22/2024 Refill [facility] MEDICINE [address] [place], [place] [phone] Carmen Arauz NP [address] [place], [place] [phone] Mild persistent asthma without complication Social History [...] encounter Miscellaneous Notes * Telephone Encounter - Ruby Avelar RN - 06/23/2024 8:59 AM EST Incoming TC from pt asking about referral for TAX ACCOUNTING MANAGER. Nurse informed pt that a message has been sent to her provider, but the referral has not been placed yet. Pt verbalized understanding and denies anyfurther questions or concerns at this time. documented in this encounter Plan of Treatment Upcoming Encounters Date Type Department Care Team (Late st Contact Info) Description 09/21/2024 11:00 AM EDT Office Visit [facility] MEDICINE [address] [place] [address] 10/19/2024 2:30 PM EDT Office Visit [facility] MEDICINE [address] [place] [address] Carmen Arauz NP [address] [place] [address] documented as of this encounter Visit Diagnoses Diagnosis Mild persistent asthma without complication documented in this encounter Additional Health Concerns Assessment Noted Time PHQ-9 Depression Total Score: 9 02/05/20 24 8:58 AM EDT documented as of this encounter Care Teams Pressure Testing Technician Relationship Specialty Start Date End Date Carmen Arauz NP [address] [place] [address] PCP - General Family Medicine 09/16/23 documented as of this encounter
--- OUTSIDE RECORDS SUMMARY | 2024-09-18 12:41 | XMS_ITS | Encounter Summary ---
Author Organization [employer] Address [address] 7[address] [place] [address] Care Team Providers Care Erp Manager Name Role Phone Carmen Arauz NP Primary Care Provider [phone] Reason for Visit * Reason Onset Date Comments Med Refill 05/15/2024 Encounter Details Date Type Department Care Team ([facility] st Contact Info) Description 05/15/2024 Refill [facility] MEDICINE [address] [place], [place] [phone] Judith Parker MD 230 [place], [place] [phone] Mild intermittent asthma, unspecified whether complicated Social History Tobacco Use Types Packs/Day Years [...] Description 09/21/2024 11:00 AM EDT Office Visit [facility] MEDICINE [address] [place] [address] 10/19/2024 2:30 PM EDT Office Visit [facility] MEDICINE [address] [place] [address] Carmen Arauz NP [address] [place] [address] documented as of this encounter Visit Diagnoses Diagnosis Mild intermittent asthma, unspecified whether complicated documented in this encounter Additional Health Concerns Assessment Noted Time PHQ-9 Depression Total Score: 9 02/05/20 24 8:58 AM EDT documented as of this encounter Care Teams Erp Manager Relationship Specialty Start Date End Date Carmen Arauz NP [address] [place] [address] PCP - General Family Medicine 09/16/23 documented as of this encounter
--- OUTSIDE RECORDS SUMMARY | 2024-09-18 12:41 | XMS_ITS | Encounter Summary ---
Author Organization [employer] Address [address] 7[address] [place] [address] Care Team Providers Care Can Patcher Name Role Phone Carmen Arauz NP Primary Care Provider [phone] Encounter Details Date Type Department Care Team ([facility] st Contact Info) Description 05/18/2024 Telephone [facility] MEDICINE [address] [place], [place] [phone] Carmen Arauz NP 230 [place] [address] Social History Tobacco Use Types Packs/Day Years [...] Description 09/21/2024 11:00 AM EDT Office Visit [facility] MEDICINE [address] [place] [address] 10/19/2024 2:30 PM EDT Office Visit [address] [address] Carmen Arauz NP [address] [place] [address] documented as of this encounter Visit Diagnoses Not on filedocumented in this encounter Additional Health Concerns Assessment Noted Time PHQ-9 Depression Total Score: 9 02/05/20 24 8:58 AM EDT documented as of this encounter Care Teams Can Patcher Relationship Specialty Start Date End Date Carmen Arauz NP [address] [place] [address] PCP - General Family Medicine 09/16/23 documented as of this encounter
--- OUTSIDE RECORDS SUMMARY | 2024-09-18 12:41 | XMS_ITS | Encounter Summary ---
Author Organization [employer] Address [address] 7[address] [place] [address] Care Team Providers Care Grocery Specialist Name Role Phone Carmen Arauz NP Primary Care Provider [phone] Reason for Visit * Reason Onset Date Comments Med Refill 10/22/2023 Encounter Details Date Type Department Care Team (Late st Contact Info) Description 10/22/2023 Refill [facility] [address] [place] [address] Payton Mcintyre MD [address] [place] [address] Social History Tobacco Use Types Packs/Day Years [...] Description 09/21/2024 11:00 AM EDT Office Visit [facility] MEDICINE [address] [place] [address] 10/19/2024 2:30 PM EDT Office Visit [address] [address] Carmen Arauz NP [address] [place] [address] documented as of this encounter Visit Diagnoses Not on filedocumented in this encounter Additional Health Concerns Assessment Noted Time PHQ-9 Depression Total Score: 0 01/19/20 23 9:07 AM EDT documented as of this encounter Care Teams Grocery Specialist Relationship Specialty Start Date End Date Carmen Arauz NP [address] [place] [address] PCP - General Family Medicine 09/16/23 documented as of this encounter
--- OUTSIDE RECORDS SUMMARY | 2024-09-18 12:41 | XMS_ITS | Encounter Summary ---
Author Organization [employer] Address [address] [place] [address] Care Team Providers Care Ranch Manager Name Role Phone Carmen Arauz NP Primary Care Provider [phone] Encounter Details Date Type Department Care Team ([facility] st Contact Info) Description 05/25/2024 Telephone [facility] MEDICINE [address] [place], [place] [phone] Carmen Arauz NP 230 [place] [address] Social History Tobacco Use Types Packs/Day Years [...] [facility] MEDICINE [address] [place] [address] 10/19/2024 2:30 PM EDT Office Visit [address] [address] Carmen Arauz NP [address] [place] [address] documented as of this encounter Visit Diagnoses Not on filedocumented in this encounter Additional Health Concerns Assessment Noted Time PHQ-9 Depression Total Score: 9 02/05/20 24 8:58 AM EDT documented as of this encounter Care Teams Ranch Manager Relationship Specialty Start Date End Date Carmen Arauz NP [address] [place] [address] PCP - General Family Medicine 09/16/23 documented as of this encounter
--- OUTSIDE RECORDS SUMMARY | 2024-09-18 12:42 | XMS_ITS | Encounter Summary ---
Author Organization [employer] Address [address] [place] [address] Care Team Providers Care Laboratory Analyst Name Role Phone Carmen Arauz NP Primary Care Provider [phone] Reason for Visit * Reason Onset Date Comments Med Refill 04/15/2024 Encounter Details Date Type Department Care Team (Late st Contact Info) Description 04/15/2024 Refill [facility] MEDICINE 230 [place], [place] [phone] Carmen Arauz NP 230 [place], [place] [phone] Lumbar spondylosis; Lumbar radiculopathy Social History Tobacco Use Types Packs/Day Years [...] is your housing situation today? I have jaylagrant hopkins 04/08/[address] you [...] Description 09/21/2024 11:00 AM EDT Office Visit [address] [address] 10/19/2024 2:30 PM EDT Office Visit [facility] MEDICINE [address] [place] [address] Carmen Arauz NP [address] [place] [address] documented as of this encounter Visit Diagnoses Diagnosis Lumbar spondylosis Lumbosacral spondylosis without myelopathy Lumbar radiculopathy Thoracic or lumbosacral neuritis or radiculitis, unspecified documented in this encounter Additional Health Concerns Assessment Noted Time PHQ-9 Depression Total Score: 9 02/05/20 8:58 AM EDT documented as of this encounter Care Teams Laboratory Analyst Relationship Specialty Start Date End Date Carmen Arauz NP [address] [place] [address] PCP - General Family Medicine 09/16/23 documented as of this encounter
--- OUTSIDE RECORDS SUMMARY | 2024-09-18 12:42 | XMS_ITS | Encounter Summary ---
Author Organization [employer] Address [address] [place] [address] Care Team Providers Care Bicycle Courier Name Role Phone Carmen Arauz NP Primary Care Provider [phone] Reason for Visit * Reason Onset Date Comments Med Refill 09/10/2024 Encounter Details Date Type Department Care Team ([facility] st Contact Info) Description 09/10/2024 Refill [facility] [address] [place] [address] Ashwini Hogue MD 505 [place] [address] Social History Tobacco Use Types Packs/Day Years [...] housing situation today? I have jayla hopkins 07/07/[address] you li ve. Do you have problems with any of the following? None of the above 07/07/2024 Food Insecurity Answer Date Recorded Within the past 12 months, y ou worried that your food would run out before you got money to buy more: Never True 07/07/2024 Within the past 12 months,th e food you bought just didn't last and you didn't have enough money to get more: Never True Transportation Answer Date Recorded In the past 12 months, has l ack of transportation kept you from medical appts, meetings, work or from getting things needed for daily living? No 07/07/2024 Utilities Answer Date Recorded In the past 12 months, has t he electric, gas, oil or water company threatened to shut off services in your home? No 07/07/2024 Depression Answer Date Recorded Patient Health Questionnaire-2 Score 2 02/05/2024 Internet Access Answer Date Recorded Internet Access Q1 No 07/07/2024 Internet Access Q2 Not on file 07/07/2024 Comments Unknown Sex and Gender Information Value [...] Description 09/21/2024 11:00 AM EDT Office Visit [facility] MEDICINE [address] [place] [address] 10/19/2024 2:30 PM EDT Office Visit [facility] MEDICINE [address] [place] [address] Carmen Arauz NP [address] [place] [address] documented as of this encounter Visit Diagnoses Not on filedocumented in this encounter Additional Health Concerns Assessment Noted Time PHQ-9 Depression Total Score: 9 02/05/20 24 8:58 AM EDT documented as of this encounter Care Teams Bicycle Courier Relationship Specialty Start Date End Date Carmen Arauz NP [address] [place] [address] PCP - General Family Medicine 09/16/23 documented as of this encounter
--- OUTSIDE RECORDS SUMMARY | 2024-09-18 12:42 | XMS_ITS | Encounter Summary ---
Author Organization [employer] Address [address] 7[address] [place] [address] Care Team Providers Care Bilingual Legal Assistant Name Role Phone Carmen Arauz NP Primary Care Provider [phone] Encounter Details Date Type Department Care Team (Late st Contact Info) Description 09/14/2024 11:00 AM EDT Office Visit [facility] MEDICINE [address] [place], [place] [phone] Joyce Birmingham MD 230 [place], [place] [phone] Lumbar radiculopathy, chronic (Primary Dx); Dietary counseling; Exercise counseling; Overweight Social History Tobacco Use Types Packs/Day Years [...] AM EST documented as of this encounter Progress Notes * Joyce Birmingham MD - 09/14/2024 11:00 AM EDT Subjective: Franchesca Chauhan is a 49 y.o. female w/ PMH GERD, asthma, chronic idiopathic urticaria, chronic SI joint pain, who presents to the office for - Chronic Pain Clinic Group visits. Initial Group visit: 09/14/24 Group Visit Number: 1 Last PCP visit: Regla, 07/07/24 Group Confidentiality last signed: 09/14/24 Group Topic: Functional Goal Setting Chronic Pain History: Associated Diagnosis: SI joint pain, lumbar radiculopathy Relevant Imaging: MRI Lumbar spine 06/05/23 MR/MR lumbar spine wo con IMPRESSION: Rmet-sx-[id number] spondylosis at the L3-L4 and L4-L5 levels. No focal disc protrusion or central canal stenosis. [id number] foraminal narrowing, more so at the L4-L5 level where there is a small central disc protrusion as well. Current pharm tx: Tylenol Medication: States taking medication as prescribed. Past ineffective med trials: tried multiple rounds of injections into lumbar and SI joints Non-pharm tx: therapy, self-exploration Related Specialists: pain mgmt, Functional Goals: garden/plant things Social History: Tobacco: yes Marijuana: no Alcohol: no Illicit substances: no Review of Systems Constitutional: Negative. Respiratory: Negative. Cardiovascular: Negative. Musculoskeletal: Positive for arthralgias and back pain. Physical Exam Vitals and nursing note reviewed. Constitutional: Appearance: Normal appearance. HENT: Head: Normocephalic and atraumatic. Skin: General: Skin is warm and dry. Neurological: General: No focal deficit present. Mental Status: She is alert and oriented to person, place, and time. Psychiatric: Mood and Affect: Mood normal. Behavior: Behavior normal. Problem List Items Addressed This Visit Lumbar radiculopathy, chronic - Primary Current Assessment & Plan Pt attended and participated in chronic pain group today - good engagement with group model of care - continue to use combination of non-pharmacological modalities to address pain - followup in 1-2 weeks Other Visit Diagnoses Dietary counseling discussed use of culinary plants Exercise counseling Overweight Follow up: 1-2 weeks for Group Chronic Pain [facility]. Follow up as scheduled with PCP, sooner as needed. documented in this encounter Miscellaneous Notes * Assessment & Plan Note - Joyce Birmingham MD - 09/14/2024 1:46 PM EDTAssociated Problem(s): Lumbar radiculopathy, chronic Pt attended and participated in chronic pain group today - good engagement with group model of care - continue to use combination of non-pharmacological modalities to address pain - followup in 1-2 weeks documented in this encounter Plan of Treatment Upcoming Encounters Date Type Department Care Team (Late st Contact Info) Description 09/21/2024 11:00 AM EDT Office Visit [facility] MEDICINE [address] [place] [address] 10/19/2024 2:30 PM EDT Office Visit [facility] MEDICINE [address] [place] [address] Carmen Arauz NP [address] [place] [address] documented as of this encounter Visit Diagnoses Diagnosis Lumbar radiculopathy, chronic- Primary Dietary counseling Dietary surveillance and counseling Exercise counseling Overweight documented in this encounter Additional Health Concerns Assessment Noted Time PHQ-9 Depression Total Score: 9 02/05/20 24 8:58 AM EDT documented as of this encounter Care Teams Bilingual Legal Assistant Relationship Specialty Start Date End Date Carmen Arauz NP [address] [place] [address] PCP - General Family Medicine 09/16/23 documented as of this encounter
--- OUTSIDE RECORDS SUMMARY | 2024-09-18 12:42 | XMS_ITS | Encounter Summary ---
Author Organization [employer] Address [address] [place] [address] Care Team Providers Care Community Health Nursing Director Name Role Phone Carmen Arauz NP Primary Care Provider [phone] Reason for Visit * Reason Onset Date Comments Med Refill 09/10/2024 Encounter Details Date Type Department Care Team ([facility] st Contact Info) Description 09/10/2024 Refill [facility]EDS [address] [place] [address] Carmen Arauz NP [address] [place] [address] Social History Tobacco Use Types Packs/Day Years [...] 11:00 AM EDT Office Visit [facility] MEDICINE [address] [place] [address] 10/19/2024 2:30 PM EDT Office Visit [facility] MEDICINE [address] [place] [address] Carmen Arauz NP [address] [place] [address] documented as of this encounter Visit Diagnoses Not on filedocumented in this encounter Additional Health Concerns Assessment Noted Time PHQ-9 Depression Total Score: 9 02/05/20 24 8:58 AM EDT documented as of this encounter Care Teams Community Health Nursing Director Relationship Specialty Start Date End Date Carmen Arauz NP [address] [place] [address] PCP - General Family Medicine 09/16/23 documented as of this encounter
--- OUTSIDE RECORDS SUMMARY | 2024-09-18 12:42 | XMS_ITS | Clinical Summary ---
Author Organization [employer] Address [address] [facility] [address] [place] [address] Care Team Providers Care Mobile Sales Assistant Name Role Phone Carmen Arauz NP Primary Care Provider [phone] Allergies Active Allergy Reactions Criticality Noted Date Comments Penicillin G 03/27/2022 Other reaction(s): Hives / Skin Rash Medications omalizumab (Xolair) 150 MG/ML injectionIndicat ions:Hives INJECT THE CONTENTS OF 2 SYRINGES (300 MG) UNDER THE SKIN EVERY 4 WEEKS 2 mL 3 023 Active albuterol (Proventil HFA) 108 (90 Base) MCG/ACT inhalerIndicatio ns:Mild intermittent asthma, unspecified whether complicated Inhale 2 puffs by mouth daily as needed 6.7 g 023 Active EPINEPHrine (Epipen) 0.3 MG/0.3ML injection syringe INJECT INTRAMUSCULARLY DIRECTED ON PACKAGE AND GO TO EMERGENCY ROOM 023 Active sucralfate (Carafate) 1 g tablet TAKE 2 TABLETS BY MOUTH EVERY DAY AT NOON 024 Active naloxone (Narcan) 4 mg/0.1 mL nasal spray Administer 1 spray into affected nostril(s) 1 (one) time if needed. 024 Active Symbicort 160-4.5 MCG/ACT inhaler Inhale 2 puffs 2 times daily. Active fexofenadine (Celia) 180 MG tablet Take 360 mg by mouth Once per day. Active desloratadine (Clarinex) 5 MG tablet TAKE 1 TABLET BY MOUTH EVERY DAY IN THE MORNING 90 tablet 1 024 Active Bisacodyl EC 5 MG EC tabletIndication s:Other constipation Take 5 mg by mouth with water. May repeat x 1 dose (5 mg) for daily total of 10 mg. Do not exceed 10 mg more than twice per week. Do not crush, chew, or split. 8 tablet 024 Active cyclobenzaprine (Flexeril) 10 MG tabletIndication s:Chronic low back pain, unspecified back pain laterality, unspecified whether sciatica present TAKE 1 TABLET BY MOUTH IN THE MORNING, AT NOON AND AT BEDTIME IF NEEDED FOR MUSCLES SPASMS FOR UP TO 10 DAYS 30 tablet 025 Active omeprazole (PriLOSEC) [address] capsule Take 1 capsule by mouth Once per day. 024 Active tretinoin (Retin-A) 0.01 % gelIndications:H yperpigmentation of skin Apply topically at bedtime. 45 g 2 025 2025 Active montelukast (Singulair) 10 MG tablet TAKE 1 TABLET BY MOUTH EVERY MORNING 90 tablet 025 Active famotidine (Pepcid) 40 MG tablet TAKE 1 TABLET BY MOUTH EVERY DAY 90 tablet 025 Active ondansetron ODT (Zofran-ODT) 4 MG disintegrating tablet TAKE 1 TABLET BY MOUTH EVERY [address] ON TOP OF THE TONGUE WHERE THEY WILL DISSOLVE THEN SWALLOW 15 tablet 025 Active acetaminophen (Tylenol 8 Hour) 650 MG ER tabletIndication s:Lumbar spondylosis,Lumb ar radiculopathy TAKE 2 TABLETS BY MOUTH EVERY 8 HOURS NEEDED 30 tablet 2 025 Active albuterol (Ventolin HFA) 108 (90 Base) MCG/ACT inhalerIndicatio ns:Mild persistent asthma without complication INHALE 2 PUFFS BY MOUTH EVERY 4 HOURS NEEDED 18 g 025 Active betamethasone valerate (Valisone) 0.1 % cream APPLY TOPICALLY TWICE A DAY 30 g 025 Active fluticasone (Flonase) 50 MCG/ACT nasal spray Administer 1 spray into each nostril 2 times daily. Shake gently. Before first use, prime pump. After use, clean tip and replace cap. 48 g 025 Active pantoprazole (Protonix) 40 MG EC tablet TAKE 1 TABLET BY MOUTH TWICE A DAY. 180 tablet Active ondansetron ODT (Zofran-ODT) 4 MG disintegrating tablet TAKE 1 TABLET BY MOUTH EVERY [address] ON TOP OF THE TONGUE WHERE THEY WILL DISSOLVE THEN SWALLOW 15 tablet 025 2024 Discontinued( Reorder (will not trigger notification to Pharmacy)) acetaminophen (Tylenol 8 Hour) 650 MG ER tabletIndication s:Lumbar spondylosis,Lumb ar radiculopathy TAKE 2 TABLETS BY MOUTH EVERY 8 HOURS NEEDED 30 tablet 2 025 2024 Discontinued( Reorder (will not trigger notification to Pharmacy)) pantoprazole (Protonix) 40 MG EC tablet TAKE 1 TABLET BY MOUTH TWICE A DAY. 180 tablet 025 2024 Discontinued( Reorder (will not trigger notification to Pharmacy)) albuterol (Ventolin HFA) 108 (90 Base) MCG/ACT inhalerIndicatio ns:Mild persistent asthma without complication INHALE 2 PUFFS BY MOUTH EVERY 4 HOURS NEEDED 18 g 025 2024 Discontinued( Reorder (will not trigger notification to Pharmacy)) betamethasone valerate (Valisone) 0.1 % cream APPLY TOPICALLY TWICE A DAY 30 g 025 2024 Discontinued( Reorder (will not trigger notification to Pharmacy)) oxyCODONE (Roxicodone) 5 MG immediate release tablet Take 1 tablet by mouth every 6 (six) hours if needed for pain. 024 2024 Discontinued( Therapy completed) fluticasone (Flonase) 50 MCG/ACT nasal spray INSTILL 1-2 SPRAYS IN EACH NOSTRIL ONCE DAILY 48 g 025 2024 Discontinued( Reorder (will not trigger notification to Pharmacy)) Active Problems Problem Noted Date Diagnosed Date Hyperpigmentation of skin 07/07/2024 Assessment & Plan (08/01/2024 1:46 PM EST): Trial topical retinoids, Pt aware this may not be covered Encouraged sun protection Encounter for gynecological examination without abnormal finding 06/24/2024 PUD (peptic ulcer disease) 05/05/2024 Assessment & Plan (05/05/2024 8:19 PM EST): Will treat with pantoprazole bid temporarily (unable to see gi currently) as omeprazole and famotidine are ineffective, Renew zofran prn FODAMPS diet reviewed Nausea 05/05/2024 Other constipation 05/05/2024 Assessment & Plan (05/05/2024 8:20 PM EST): Renew bisacodyl, prn , reviewed sparing usage, call clinic if constipation persists for safer management options, pt verbalizes understanding Diverticulitis 04/20/2024 Overview (04/20/2024): Ct 04/20/24 Chest tightness 02/04/2024 Assessment & Plan (02/11/2024 5:39 PM EDT): Most consistent with asthma, however will refer to cardiology as pt does endorse an episode during exercise , has upcoming visit with pulmonary Aware of s/s requiring 911 and urgent evaluation Chronic pain of right wrist 01/24/2024 Depression 12/11/2023 Assessment & Plan (12/25/2023 3:26 PM EDT): Tolerating lexapro, increase to 10 mg rtc in 6 week Assessment & Plan (12/21/2023 12:17 PM EDT): Pt reports chronic pain is causing depression, will trial lexapro . Medication Indications, side effects and duration of therapy reviewed, pt aware to call clinic for worsening symptoms or failure to resolve Chronic low back pain 12/11/2023 Assessment & Plan (12/21/2023 12:17 PM EDT): Prn muscle relaxor rx. Continue care with physiatry declines second opinion Right hip pain 10/28/2023 Assessment & Plan (10/28/2023 3:22 PM EDT): Will check right hip Xray, possible right trochanteric bursitis Pt has upcoming appointment with Orthopedics, recommend further evaluation and management Low back pain radiating to both legs 10/28/2023 Assessment & Plan (10/28/2023 3:22 PM EDT): Mostly right side. Will check right hip Xray, possible right trochanteric bursitis Pt has upcoming appointment with Orthopedics, recommend further evaluation and management Abnormal PFTs (pulmonary function tests) Overview (11/08/2023): Last Assessment & Plan: Mild restrictive pattern, likely normal as patient has somewhat of a short torso. Will check chest x-ray to rule out underlying lung disease given her history of tobacco use. History of penicillin allergy 10/15/2023 Overview (11/08/2023): Rash as a child Last Assessment & Plan: Remote history, 40 years ago, of a rash/hives to penicillin. Patient has not been challenged since. She is at low risk for significant allergic reaction. Recommend oral amoxicillin graded challenge. Patient to be off oral antihistamines for 5 days prior to testing. Will schedule at her convenience. Right lower quadrant pain 09/30/2023 Assessment & Plan (09/30/2023 1:10 PM EDT): Will image as pt does not recall abdominal imaging and has rlq tenderness, likely radiating from back Tobacco dependence 09/30/2023 Assessment & Plan (09/30/2023 1:05 PM EDT): Has cut down signficantly, aware of resources, encouraged pt to continue Arthritis of knee 07/09/2023 Acute recurrent tonsillitis 06/20/2023 Assessment & Plan (12/25/2023 3:25 PM EDT): Rx sent based on hx culture confirmed infections, if persists or fails to resolve rtc Assessment & Plan (06/20/2023 9:51 AM EST): Treat laryngitis with amoxicillin x 10 days I recommended gargling oral antiseptics, anti inflammatory teas (frederick, chamomile, ect.) Increase fluid intake, avoid solid food for the next 3-4 days, drink warmer fluids She has been referred to ENT for possible tonsillectomy, referral info given to pt today (of note, appointment was written for 2022 which is most likely a typo, pt made aware) Sore throat 06/20/2023 Epigastric pain 02/19/2023 Assessment & Plan (02/19/2023 1:44 PM EDT): I advise patient to avoid NSAIDs, spicy and acid food, I advise to eat at the same time every day, I advise to elevate the head of the bed and take medications as prescribe C/w famotidine and omeprazole Chronic pain of left knee 02/19/2023 Assessment & Plan (02/19/2023 1:44 PM EDT): Patient declined local injections for now, she will c/w lidocaine patches and acetaminophen PRN Mild persistent asthma without complication 01/2023 Overview (09/26/2023): Last Assessment & Plan: Mild persistent asthma with mainly morning symptoms. Despite negative allergy work-up, question whether could be related to dust mite allergy. We will obtain full pulmonary function studies and start patient empirically on high-dose ICS/LABA. She should continue montelukast daily and albuterol as needed. Chronic idiopathic urticaria 02/15/2023 Overview (02/03/2024): Since approximately 2019 Last Assessment & Plan: Severe chronic idiopathic urticaria responds well to standard Xolair dosing though with easy breakthrough if delay in dosing. Her current prior authorization expires on 01/19. Will be sure to complete required insurance information prior to avoid expiration and delay in treatment. This continued desloratadine changed to high- dose Celia, 2 tablets or 360 mg daily. Moderate persistent asthma without complication 02/15/2023 Overview (02/03/2024): Last Assessment & Plan: Inadequately controlled asthma symptomatically despite lack of airflow obstruction or bronchial reactivity on PFTs. FeNO also low. Recommend high-dose ICS/LABA and stepdown as tolerates. Will change from DPI to MDI/HFA. Will order Symbicort but could change to Dulera depending on coverage. Low vision 01/22/2023 Mild intermittent asthma 01/18/2023 Healthcare maintenance 01/18/2023 Assessment & Plan (09/30/2023 1:08 PM EDT): Pap neg cytology/hpv 2021 Colon ca screening- not completed, due Mammogram -2020, due , ordered Lipids completed 2022, ascvd risk - 0.7% 10 year Lumbar spondylosis 05/16/2022 Idiopathic urticaria 03/27/2022 Overview (08/30/2022): Continue loratadine, singular, prescription for prednisone. Left message for PA specilist for status of the Xolair. F/u with new zipper machine operator. ER precautions discussed. Pt sgrees with the plan. Assessment & Plan (09/16/2023 11:46 AM EDT): PRD 20 mg x 5d, counseled to discuss with zipper machine operator (appt next month) re adjusting Xolair dose vs changing to another med so that she doesn't end up using PRD that often. Patient is aware of side effects of residential use of steroids. DC Zyrtec and use desloratadine Continue Singulair FU with new PCP. Assessment & Plan (01/18/2023 2:16 PM EDT): Do not miss upcoming appointment with reimbursement specialist PT1 for visit will be provided Assessment & Plan (08/30/2022 9:35 AM EDT): Continue loratadine, singular, prescription for prednisone. Left message for PA specilist for status of the Xolair. F/u with new zipper machine operator. ER precautions discussed. Pt sgrees with the plan. Lumbar radiculopathy, chronic 03/27/2022 Assessment & Plan (09/14/2024 1:46 PM EDT): Pt attended and participated in chronic pain group today - good engagement with group model of care - continue to use combination of non-pharmacological modalities to address pain - followup in 1-2 weeks Assessment & Plan (08/01/2024 1:45 PM EST): Pt in care with outside team Frustrated by lack of progress/support Referral to chronic pain group Assessment & Plan (02/11/2024 5:40 PM EDT): Tolerating amitryptiline but no noted benefit, will stay at current dosage Assessment & Plan (11/11/2023 5:41 PM EDT): Persistent presumed SI joint pain, pt has not noted benefit from injections and reports pain is debilitating. Willing to trial cymbalta. Has upcoming follow up w pain management in November. Medication Indications, side effects and duration of therapy reviewed, pt aware to call clinic for worsening symptoms or failure to resolve Assessment & Plan (09/30/2023 1:09 PM EDT): In care with physiatry and pain management, pt reports no improvement with injections, physical therapy or med management, continue current pain management regimen,follow up in 6 weeks sooner prn Assessment & Plan (09/16/2023 8:47 AM EDT): Added Lyrica to help with neuropahty/radiculopathy. Assessment & Plan (02/19/2023 1:45 PM EDT): C/w pain management I advise ot to miss her MRI appointment to f/u with them Encounters Date Type Department Care Team Description 09/15/2024 Telephone [facility] [address] [place] [phone] Carmen Arauz NP 09/15/2024 Refill [facility] [address] [place] [address] Carmen Arauz NP 09/15/2024 Refill [facility] [address] [place] [address] Ashwini oHgue MD 09/14/2024 11:00 AM EDT Office Visit [facility] [address] [place] [phone] Joyce Birmingham MD Lumbar radiculopathy, chronic (Primary Dx); Dietary counseling; Exercise counseling; Overweight 09/14/2024 Travel 09/14/2024 Telephone [facility] [address] [place] [phone] Carmen Arauz NP Appointment Request 2024 Telephone [facility] [address] [place] [phone] Emerita Nash DO Appointment Request 09/10/2024 Refill [facility] [address] [place] [address] Carmen Arauz NP 09/10/2024 Refill [facility] [address] [place] [phone] Carmen Arauz NP Lumbar spondylosis; Lumbar radiculopathy; Mild persistent asthma without complication 09/10/2024 Refill [facility] [address] [place] [phone] Carmen Arauz NP Hyperpigmentation of skin 09/10/2024 Refill [facility] [address] [place] [address] Ashwini Hogue MD 09/07/2024 Outside Procedure [facility] [address] [place] [address] Guillermo, Irene, OD Presbyopia (Primary Dx) 09/04/2024 9:15 AM EDT Office Visit [facility] [address] [place] [address] GuillermoAndrewn, OD 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) 09/03/2024 Telephone [facility] [address] [place] [address] Carmen Arauz NP Mondays Chronic Pain Group 08/26/2024 Telephone [facility] [address] [place] [address] Carmen Arauz NP Saturday Chronic Pain Group 08/21/2024 Population Health Risk Score [facility] Department [address] [place] [phone] Provider, Population Health Generic 08/07/2024 Patient Outreach [facility] [address] [place] [address] Carmen Arauz NP Pre-visit Planning (SDOH unable to reach [facility]) 08/06/2024 Refill [facility] [address] [place] [address] Carmen Arauz NP 08/05/2024 Telephone [facility] [address] [place] [phone] Carmen Arauz NP Scheduling for pain group 07/23/2024 Telephone [facility] [address] [place] [address] Irene Li OD 07/21/2024 Refill [facility] [address] [place] [phone] Ashwini Hogue MD 07/07/2024 1:45 PM EST Office Visit [facility] [address] [place] [phone] Carmen Arauz NP Hyperpigmentation of skin (Primary Dx); Lumbar radiculopathy, chronic 07/02/2024 Telephone [facility] [address] [place] [address] Tonya Canela MA TP request 07/01/2024 Telephone [facility] [address] [place] [phone] Carmen Arauz NP Change provider 06/24/2024 Telephone [facility] [address] [place] [address] Carmita Rajput MA Chart Prep 06/22/2024 Refill [facility] [address] [place] [phone] Carmen Arauz NP Chronic low back pain, unspecified back pain laterality, unspecified whether sciatica present; Lumbar spondylosis; Lumbar radiculopathy; Mild persistent asthma without complication 06/22/2024 Refill [facility] [address] [place] [address] Carmen Arauz NP Mild persistent asthma without complication 06/22/2024 Refill [facility] [address] [place] [address] Ashwini Hogue MD 06/22/2024 Telephone [facility] [address] [place] [phone] Carmen Arauz NP Referral from Last 3 Months Immunizations Name Administration Dates Next Due Moderna Covid-19 Vaccine 12+ 05/12/2022 Pfizer Covid-19 Vaccine 12+ 09/26/2023(D eferred: Patient Refused - Patient declined 09/26/23) Pfizer Covid-19 Vaccine 12+ Bivalent 05/12/2022 Pfizer Covid-19 Vaccine 12+ ella-sucrose (Humphries Cap) 11/26/2020,11/05/2020 Tdap 03/27/2022 Family History Medical History Relation Name Comments htn Mother Relation Name Status Comments Mother Social History Tobacco Use Types Packs/Day Years Used Date Smoking Tobacco: Every Day Cigarettes Passive Smoke Exposure: Current Smokeless Tobacco: Never Tobacco Cessation:Ready to Q uit: Not Asked; Counseling Given: Not Answered Alcohol Use Standard Drinks/Week Comments Never 0 [...] Orientation Straight 05/30/2023 12 :03 AM EST Last Filed Vital Signs Vital Sign Reading Time Taken Comments Blood Pressure 120/69 07/07/2024 1:46 PM EST Pulse 62 07/07/2024 1:46 PM EST Temperature 36.6 ??C (97.9 ??F) 07/07/2024 1:46 PM ES T Respiratory Rate 20 07/07/2024 1:46 PM EST Oxygen Saturation 99% 07/07/2024 1:46 PM EST Inhaled Oxygen Concentration - - Weight 81.7 kg (180 lb 3.2 oz) 07/07/2024 1:46 P M EST Height 165.1 cm (5' 5 ) 07/07/2024 1:46 PM EST Body Mass Index 29.99 07/07/2024 1:46 PM EST Plan of Treatment Upcoming Encounters Date Type Department Care Team (Late st Contact Info) Description 09/21/2024 11:00 AM EDT Office Visit [facility] [address] [place] [phone] 10/19/2024 2:30 PM EDT Office Visit [facility] [address] [place] [phone] Carmen Arauz NP [address] [place] [address] Health Maintenance Due Date Last Done Comments CT Colonography 1975 Colonoscopy 1975 Colorectal Cancer Screening 1975 FIT DNA/Cologuard 1975 FIT 1975 FOBT 1975 Sigmoidoscopy 1975 Family Planning (PISQ) 09/12/1991 Hepatitis B Vaccines (1 of 3 - 19+ 3-dose series) 09/12/1995 Pneumococcal Vaccine: Pediatrics (0 to 5 Years) and At-Risk Patients (6 to 49) Years) (1 of 2 - PCV) 09/12/1995 Influenza Vaccine (#1) 2024 Depression Monitoring 08/07/2024 02/05/2024, 024 Alcohol/Substance Use Screening 12/10/2024 12/11/2023 Depression Screening 02/04/2025 02/05/2024, 02/05/20 24 Pap Smear 04/02/2025 04/02/2022 SDOH Screening 07/07/2025 07/07/2024 Tobacco Screening 09/14/2025 09/14/2024 Mammogram 10/07/2025 10/08/2023 Zoster Vaccines (1 of 2) 2026 Cervical Cancer Screening 04/02/2027 HPV/Cotest 04/02/2027 04/02/2022 Lipid Panel 02/01/2028 01/31/2023, 04/02/2022 DTaP/Tdap/Td Vaccines (2 - Td or Tdap) 03/27/2032 03/27/2022 RSV Patients and Patients Aged 60 years or older (1 - 1-dose 75+ series) 09/12/2051 COVID-19 Vaccine Discontinued 05/12/2022, 08/2021, 11/26/2020, Additional history exists HIV Screening Completed 01/31/2023, 04/02/2022 Hepatitis C Screening Completed 01/31/2023, 022 HIB Vaccines Aged Out No longer eligi [...] patient's age to complete this topic Meningococcal Vaccine Aged Out No nila lisset eligible based on patient's age to complete this topic RSV under 20 months Aged Out No longe r eligible based on patient's age to complete this topic Rotavirus Vaccines Aged Out No longer eligible based on patient's age to complete this topic Procedures Procedure Name Priority Date/Time Associated Diagnosis Comments BI MAMMOGRAM SCREENING TOMOSYNTHESIS BILATERAL Routine 10/08/2023 10:40 AM EDT Healthcare maintenance HEPATITIS C ANTIBODY REFLEX Routine 01/31/2023 8:50 AM EDT HIV ANTIBODY/ANTIGEN ([place] DPH) Routine 01/31/2023 8:50 AM EDT LIPID PANEL, STANDARD Routine 01/31/2023 8:50 AM EDT Health care maintenance THINPREP IMAGING PAP AND HPV MRNA E6/E7 WITH REFLEX TO HPV 16,18/45 Routine 04/02/2022 4:20 PM EDT from Last 3 Months or Most Recently Relevant to Health Maintenance Results * BI Mammogram Screening Tomosynthesis Bilateral (10/08/2023 10:40 AM EDT) Anatomical Region Laterality Modality Breast Bilateral Mammography 10/08/2023 10:4 0 AM EDT Narrative 11/04/2023 11:24 AM EDT ? [facility] ? [facility] ?[place] [address] ? Mammography Report ? Signed ? Patient: Tien,Franchesca ?MR#: [id number] ?? 88 ? : 1975 ?Acct:[id number] ? Age/Sex: 48 / F ?ADM Date: 04/30/24 ? Loc: HO.MAMMO ? Attending : Carmen Arauz RANGE CONSERVATIONIST ? Ordering Physician: Carmen Arauz RANGE CONSERVATIONIST ?Results: 1Negati ?? ve ? Date of Service: 10/08/23 ?Follow Up: 1 Year From Orig ?? inal Mammogram ? Procedure(s): MM tomosynthesis screening BI ?? Accession Number(s): [id number] ? cc: Carmen Arauz RANGE CONSERVATIONIST ? EXAMINATION: ?? MM SCREENING DIGITAL BREAST TOMOSYNTHESIS, BILATERAL ? CLINICAL INFORMATION: ? Screening. Asymptomatic. ? COMPARISON: ?? Mammography: This study is compared with breast imaging dating back to ?? 2015. ? TECHNIQUE: ?? Digital breast tomosynthesis is performed in both the craniocaudal and ?? mediolateral oblique views along with computer-aided detection (CAD). ?? Synthesized 2D images are generated from the tomosynthesis. ? FINDINGS: ?? There are scattered areas of fibroglandular density (ACR BI-RADS breast ?? composition Category b). ? There are no significant masses, abnormal calcifications, or other ?? abnormalities. ? MM/MM tomosynthesis screening BI ?? IMPRESSION: ?? No mammographic evidence of malignancy. ? ASSESSMENT: ? BI-RADS BI-RADS 1 - Negative ? RECOMMENDATION: ?? Routine annual mammography screening. ? 1 year F/U ? This examination should not preclude the clinical evaluation of a ?? suspicious palpable abnormality. ? This patient's information was entered into a reminder system with a ?? target due date for their next mammogram. ? Dictated By: ?Kusum Chester MD ? Signed By: ?<Electronically signed by Kusum Chester MD in OV> ? 11/03/ 1120 ? DD/DT: 10/07/ 1040 ? TD/TT: ? Medical Record Retrieval Specialist: ? Procedure Note Donotuseinterpreter, Image - 11/04/2023 [facility] [address] [place] [address] Mammography Report Signed Patient: Franchesca ChauhanMR#: [id number] 88 : 1975Acct:[id number] Age/Sex: 48 / FADM Date: 10/08/23 Loc: HO.MAMMO Attending Dr: Carmen Arauz NP Ordering Physician: Carmen Arauz NPResults: 1Negati ve Date of Service: 10/08/23Follow Up: 1 Year From Orig inal Mammogram Procedure(s): MM tomosynthesis screening BI Accession Number(s): [id number] cc: Carmen Arauz RANGE CONSERVATIONIST EXAMINATION: MM SCREENING DIGITAL BREAST TOMOSYNTHESIS, BILATERAL CLINICAL INFORMATION: Screening. Asymptomatic. COMPARISON: Mammography: This study is compared with breast imaging dating back to 2016. TECHNIQUE: Digital breast tomosynthesis is performed in both the craniocaudal and mediolateral oblique views along with computer-aided detection (CAD). Synthesized 2D images are generated from the tomosynthesis. FINDINGS: There are scattered areas of fibroglandular density (ACR BI-RADS breast composition Category b). There are no significant masses, abnormal calcifications, or other abnormalities. MM/MM tomosynthesis screening BI IMPRESSION: No mammographic evidence of malignancy. ASSESSMENT: BI-RADS BI-RADS 1 - Negative RECOMMENDATION: Routine annual mammography screening. 1 year F/U This examination should not preclude the clinical evaluation of a suspicious palpable abnormality. This patient's information was entered into a reminder system with a target due date for their next mammogram. Dictated By: Kusum Chester MD Signed By: <Electronically signed by Kusum Chester MD in OV> 11/04/23 1120 DD/ 1040 TD/TT: Medical Record Retrieval Specialist: us Carmen Arauz RANGE CONSERVATIONIST IMG BI PROCEDURES Final Result * Hepatitis C Antibody Reflex (01/31/2023 8:50 AM EDT) Pathologist [facility] Hepatitis C Antibody Nonreactive Nonreactive [facility] Comment:Antibodies to HCV no t detected; does not exclude early acuteHCV infection. 01/31/2023 8:50 AM EDT 01/31/2023 11:11 AM EDT us Judith Sibley MD LAB BLOOD ORDERABLES Final Result Performing Organization Address [facility] Co de Phone Number [facility] [address] [place] [phone] * HIV Ab/Ag ([facility]) (01/31/2023 8:50 AM EDT) [facility] HIV AB/AG Nonreactive Nonreactive [facility] Comment:HIV-1 p24 Ag and/or HIV-1/HIV-2 Ab not detected.A test result that is nonreactive does not exclude thepossibility of exposure to or infection with HIV-1 and/orHIV-2. Nonreactive results in this assay for individualswith prior exposure to HIV-1 and/or HIV-2 may be due toantigen and antibody levels that are below the limit ofdetection of this assay.The [employer] HIV Ag/Ab Combo assay result andsupplemental assay results should be interpreted inconjunction with the patient's clinical presentation,history and other laboratory results. If the results areinconsistent with clinical evidence, additional testing issuggested to confirm the result. 01/31/2023 8:50 AM EDT 01/31/2023 11:11 AM EDT us Judith Sibley MD LAB BLOOD ORDERABLES Final Result Performing Organization Address [facility] Co de Phone Number [facility] [address] [place] [phone] * Lipid Panel, Standard (01/31/2023 8:50 AM EDT) Pathologist [facility] Triglycerides 79 <150 mg/dL [facility] Comment:Desirable Triglyceri de: less than 150 mg/dLBorderline High Triglyceride 150-199 mg/dLHigh Triglyceride: 200-499 mg/dLVery High Triglyceride: greater than or equal to 5OO mg/dL Cholesterol 150 <200 mg/dL [facility] Comment:Desirable Cholestero l: less than 200 mg/dLBorderline High Cholesterol: 200-239 mg/dLHigh Cholesterol: greater than 239 mg/dL LDL Cholesterol Calculated 86 <100 mg/dL [facility] Comment:Desirable LDL: less than 100 mg/dLNear Optimal/Above Optimal LDL: 110- 129 mg/dLBorderline High LDL: 130-159 mg/dLHigh LDL: 160-189 mg/dLVery High LDL: greater than or equal to 190 mg/dL HDL Cholesterol 49 >40 mg/dL [facility] Comment:Desirable HDL: great er than 40 mg/dL Note: This HDL assay may give artificially low results in patients with liver disease. Blood Venous blood specimen / Unknown 01/31/2023 8:50 AM EDT 01/31/2023 11:11 AM EDT Judith Sibley MD LAB BLOOD ORDERABLES Final Result [facility] [address] [place] [phone] * THINPREP TIS PAP AND HPV mRNA E6/E7 WITH REFLEX TO HPV 16,18/45 (04/02/2022 4:20 PM EDT) Clinical Information: None given [facility] COMMENT SEE COMMENT [facility] Comment: EXPLANATORY NOTE: ? The Pap is a screening test for cervical cancer. It is ?? not a diagnostic test and is subject to false negative ?? and false positive results. It is most reliable when a ?? satisfactory sample, regularly obtained, is submitted ?? with relevant clinical findings and history, and when ?? the Pap result is evaluated along with historic and ?? current clinical information. ?? COMMENT: This Pap test has been evaluated with computer assisted technology. [facility] Semiconductor Processor : SEE COMMENT [facility] Comment: SXA, CT(ASCP) CT screening location: [address] ??[address] HPV nRNA E6/E7 Not Detected Not Detected [facility] Comment: Methodology: Peanut Farmer-Mediated Amplification This assay detects E6/E7 viral messenger RNA (mRNA) from 14 high-risk HPV types (16,18,31,33,35,39,45,51,52,56,58,59,66,68). ? Cervical sources are required for HPV testing. If a vaginal source from a patient who has had a total hysterectomy with removal of cervix was ?? submitted, please contact the testing laboratory for alternative testing options. ?? For additional information, please refer to http://education.[employer]/faq/CUX374u3 (This link if provided for information/ educational purposes only.) Interpretation/R esult: Negative for intraepithelial lesion or malignancy. [facility] LMP: NONE GIVEN [facility] Prev. BX: NONE GIVEN [facility] Prev. PAP: NONE GIVEN [facility] SOURCE: None given [facility] Statement Of Adequacy: SEE COMMENT [facility] Comment: Satisfactory for evaluation. Endocervical/transformation zone component present. Age and/or menstrual status not provided 04/02/2022 4:20 PM EDT Parag Bush MD LAB PATHOLOGY ORDERABLES Fin al Result Performing Organization Address City/State/[facility] Co de Phone Number [facility] from Last 3 Months or Most Recently Relevant to Health Maintenance Insurance [facility] STANDARD Care Teams Mobile Sales Assistant Relationship Specialty Start Date End Date Carmen Arauz NP [address] [place] [place] [address] PCP - General Family Medicine 09/16/23
--- OUTSIDE RECORDS SUMMARY | 2024-09-18 12:42 | XMS_ITS | Encounter Summary ---
Author Organization [employer] Address [address] 7[address] [place] [address] Care Team Providers Care Brass Plater Name Role Phone SyedCarmen garcia YANNA Primary Care Provider [phone] Encounter Details Date Type Department Care Team (Latest Contact Info) Description 09/14/2024 Travel Social History Tobacco Use Types Packs/Day Years [...] 11:00 AM EDT Office Visit [facility] [address] [place] [address] 10/19/2024 2:30 PM EDT Office Visit [facility] [address] [place] [address] Carmen Arauz NP [address] [place] [address] documented as of this encounter Visit Diagnoses Not on filedocumented in this encounter Additional Health Concerns Assessment Noted Time PHQ-9 Depression Total Score: 9 02/05/20 24 8:58 AM EDT documented as of this encounter Care Teams Brass Plater Relationship Specialty Start Date End Date Carmen Arauz NP [address] [place] [address] PCP - General Family Medicine 09/16/23 documented as of this encounter
--- OUTSIDE RECORDS SUMMARY | 2024-09-18 12:42 | XMS_ITS | Encounter Summary ---
Author Organization [employer] Address [address] [facility] 7t [place] [address] Care Team Providers Care Union Organizer Name Role Phone Carmen Arauz NP Primary Care Provider [phone] Reason for Visit * Reason Onset Date Comments Med Refill 09/10/2024 Encounter Details Date Type Department Care Team (Late st Contact Info) Description 09/10/[address] [facility] [address] [place], [place] [phone] Carmen Arauz NP 230 [place] [address] Hyperpigmentation of skin Social History Tobacco Use Types Packs/Day Years [...] Description 09/21/2024 11:00 AM EDT Office Visit [address] [address] 10/19/2024 2:30 PM EDT Office Visit [address] [address] Carmen Arauz NP [address] [place] [address] documented as of this encounter Visit Diagnoses Diagnosis Hyperpigmentation of skin Other dyschromia documented in this encounter Additional Health Concerns Assessment Noted Time PHQ-9 Depression Total Score: 9 02/05/20 8:58 AM EDT documented as of this encounter Care Teams Union Organizer Relationship Specialty Start Date End Date Carmen Arauz NP [address] [place] [address] PCP - General Family Medicine 09/16/23 documented as of this encounter
--- OUTSIDE RECORDS SUMMARY | 2024-09-18 12:42 | XMS_ITS | Encounter Summary ---
Author Organization [employer] Address [address] [address] [facility] [address] 7t [place] [address] Care Team Providers Care National Basketball [employer] Scout Name Role Phone Carmen Arauz NP Primary Care Provider [phone] Reason for Visit * Reason Onset Date Comments Appointment Request 09/14/2024 Encounter Details Date Type Department Care Team ([facility] st Contact Info) Description 09/14/2024 Telephone [facility] 230 [place], [place] [phone] Carmen Arauz NP 230 [place], [place] [phone] Appointment Request Social History Tobacco Use Types Packs/Day Years [...] encounter Miscellaneous Notes * Telephone Encounter - Dianna Bradley MA - 09/14/2024 1:52 PM EDT Spoke with patient made her aware Dr. Nash is booking for November but the schedule is not up as of yet. If is urgent I would schedule with another provider patient stated will wait until November. * Telephone Encounter - So Moya - 09/14/2024 8:58 AM EDT Tc from pt requesting r/s 08/14 transfer pt appt with Saad. documented in this encounter Plan of Treatment Upcoming Encounters Date Type Department Care Team (Late st Contact Info) Description 09/21/2024 11:00 AM EDT Office Visit [facility] [address] [place] [address] 10/19/2024 2:30 PM EDT Office Visit [facility] [address] [place] [address] Carmen Arauz, YANNA [address] [place] [address] documented as of this encounter Visit Diagnoses Not on filedocumented in this encounter Additional Health Concerns Assessment Noted Time PHQ-9 Depression Total Score: 9 02/05/20 24 8:58 AM EDT documented as of this encounter Care Teams [employer] Scout Relationship Specialty Start Date End Date Carmen Arauz NP 230 [place] [address] PCP - General Family Medicine 09/16/23 documented as of this encounter
--- OUTSIDE RECORDS SUMMARY | 2024-09-18 12:42 | XMS_ITS | Encounter Summary ---
Author Organization [employer] Address [address] 7t [place] [address] Care Team Providers Care Chess Instructor Name Role Phone Carmen Arauz NP Primary Care Provider [phone] Reason for Visit * Reason Onset Date Comments Med Refill 04/15/2024 Encounter Details Date Type Department Care Team ([facility] st Contact Info) Description 04/15/2024 Refill [facility] 230 [place] [address] Judith Parker MD 230 [place] [address] Social History Tobacco Use Types Packs/Day Years [...] Description 09/21/2024 11:00 AM EDT Office Visit [address] [address] 10/19/2024 2:30 PM EDT Office Visit [address] [address] Carmen Arauz NP 230 [place] [address] documented as of this encounter Visit Diagnoses Not on filedocumented in this encounter Additional Health Concerns Assessment Noted Time PHQ-9 Depression Total Score: 9 02/05/20 24 8:58 AM EDT documented as of this encounter Care Teams Chess Instructor Relationship Specialty Start Date End Date Carmen Arauz NP 230 [place] [address] PCP - General Family Medicine 09/16/23 documented as of this encounter
--- OUTSIDE RECORDS SUMMARY | 2024-09-18 12:42 | XMS_ITS | Encounter Summary ---
Author Organization [employer] Address [address] [facility] [facility] [address] [facility] [address] [place] [address] Care Team Providers Care Board Runner Name Role Phone Carmen Arauz NP Primary Care Provider [phone] Reason for Visit * Reason Onset Date Comments Med Refill 04/15/2024 Encounter Details Date Type Department Care Team ([facility] st Contact Info) Description 04/15/[address] [facility] 230 [place], [place] [phone] Name, MD Harvinder 230 [place] [address] Mild persistent asthma without complication Social History [...] Description 09/21/2024 11:00 AM EDT Office Visit [address] [address] 10/19/2024 2:30 PM EDT Office Visit [address] [address] Carmen Arauz NP 230 [place] [address] documented as of this encounter Visit Diagnoses Diagnosis Mild persistent asthma without complication documented in this encounter Additional Health Concerns Assessment Noted Time PHQ-9 Depression Total Score: 9 02/05/20 24 8:58 AM EDT documented as of this encounter Care Teams Board Runner Relationship Specialty Start Date End Date Carmen Arauz NP [address] [place] [address] PCP - General Family Medicine 09/16/23 documented as of this encounter
--- OUTSIDE RECORDS SUMMARY | 2024-09-18 12:42 | XMS_ITS | Encounter Summary ---
Author Organization [employer] Address [address] [facility] [address] 7t [place] [address] Care Team Providers Care Processing Manager Name Role Phone Carmen Arauz NP Primary Care Provider [phone] Reason for Visit * Reason Onset Date Comments Appointment Request 2024 Encounter Details Date Type Department Care Team ([facility] st Contact Info) Description 2024 Telephone [facility] 230 [place], [place] [phone] Emerita Nash DO 230 [place], [place] [phone] Appointment Request Social History Tobacco Use Types [...] encounter Miscellaneous Notes * Telephone Encounter - Fercho Jones - 2024 1:34 PM EDT Tc from pt requesting a to r/s appt from 08/14/24. Artificial Snow Making Machine Operator advised pt that there is no appt available and told pt that she would be put on a recall for whenever there is a opening. Contact pt at [phone] documented in this encounter Plan of Treatment Upcoming Encounters Date Type Department Care Team ([facility] st Contact Info) Description 09/21/2024 11:00 AM EDT Office Visit [facility] [address] [place] [address] 10/19/2024 2:30 PM EDT Office Visit [facility] [address] [place] [address] Carmen Arauz NP 230 [place] [address] documented as of this encounter Visit Diagnoses Not on filedocumented in this encounter Additional Health Concerns Assessment Noted Time PHQ-9 Depression Total Score: 9 02/05/20 24 8:58 AM EDT documented as of this encounter Care Teams Processing Manager Relationship Specialty Start Date End Date Carmen Arauz NP 230 [place] [address] PCP - General Family Medicine 09/16/23 documented as of this encounter
--- OUTSIDE RECORDS SUMMARY | 2024-09-18 12:42 | XMS_ITS | Encounter Summary ---
Author Organization [employer] Address [address] [facility] [address] [place] [address] Care Team Providers Care Technology Project Manager Name Role Phone Carmen Arauz NP Primary Care Provider [phone] Reason for Visit * Reason Onset Date Comments triage 08/16/2022 Encounter Details Date Type Department Care Team ([facility] st Contact Info) Description 08/16/2022 Telephone [facility] 230 [place], [place] [phone] Judith Parker MD 230 [place], [place] [phone] triage Social History Tobacco Use Types Packs/Day Years Used Date Smoking Tobacco: Every Day Cigarettes Smokeless Tobacco: Never Alcohol Use Standard Drinks/Week [...] suspected to have Coronavirus/COVID-19? No / Unsure 08/10/2022 8:41 AM EST documented as of this encounter Miscellaneous Notes * Telephone Encounter - Elza Fuchs RN - 08/16/2022 10:02 AM EST Triage call to Pt Canceled apt today, Pt developed hives all over this morning, head to toe . Hives on lips, eyes, itching, burning with difficulty breathing due to tight chest and Nausea. Pt is in the Ed at time of call, Advised to stay for full evaluation and to call for follow up when done and Pt agrees. Protocol Used: Hives (Adult) Protocol-Based Disposition: Go to ED Now Positive Triage Question: * Widespread hives, itching, or facial swelling and onset < 2 hours of exposure to high-risk allergen (e.g., 1st dose of antibiotic, nuts, sting) * All higher-acuity triage questions were negative * Telephone Encounter - Estrada Baer - 08/16/2022 9:37 AM EST Symptoms: Eye Swelling, Lip Swelling, Hives Outcome: Schedule an urgent appointment (within 1 hour) or talk to a nurse or provider soon Reason: Severe pain now The caller accepted this outcome documented in this encounter Plan of Treatment Upcoming Encounters Date Type Department Care Team (Late st Contact Info) Description 09/21/2024 11:00 AM EDT Office Visit [facility] [address] [place] [address] 10/19/2024 2:30 PM EDT Office Visit [facility] [address] [place] [address] Carmen Arauz NP 230 [place] [address] documented as of this encounter Visit Diagnoses Not on filedocumented in this encounter Care Teams Technology Project Manager Relationship Specialty Start Date End Date Carmen Arauz NP 230 [place] [address] PCP - General Family Medicine 09/16/23 Alla Oliveira Kai [place] 07/11/23 09/16/23 documented as of this encounter
--- OUTSIDE RECORDS SUMMARY | 2024-09-18 12:42 | XMS_ITS | Encounter Summary ---
Author Organization [employer] Address [address] 7[address] [place] [address] Care Team Providers Care Talent Acquisition Lead Name Role Phone Carmen Arauz NP Primary Care Provider [phone] Reason for Visit * Reason Onset Date Comments Nurse Triage 06/27/2023 TelephoneCall 06/27/2023 Encounter Details Date Type Department Care Team ([facility] st Contact Info) Description 06/27/[address] [facility] 230 [place] [address] Judith Parker MD 230 [place], [place] [phone] Nurse Triage; TelephoneCall Social History Tobacco Use Types Packs/Day Years Used Date Smoking Tobacco: Some Days Cigarettes Passive Smoke Exposure: Current Smokeless Tobacco: [...] encounter Miscellaneous Notes * Telephone Encounter - Judith Bain - 07/02/2023 8:43 AM EST Tc from pt calling in regards to message above. Pt is requesting an earlier appointment. States shecannot wait until jul due to the pain pt is having. Please contact pt at [phone] * Telephone Encounter - Petrona Felix RN - 06/27/2023 4:33 PM EST Called pt. She states that she is looking for an appt. With PCP. Pt. Is seeing pain management and they want to start doing back injections. Pt. States I used to get back injections when I lived in [place] and the injections do not work . Pt. Is on Ibuprofen 800 and Tylenol 650mg alternating with no relief. Pt. Has taken Tramadol and lidocaine patches in past with no relief. Pt. States that painnow travels down right leg and sometimes her leg gives out while walking. Pt. States that she had ascheduled appt. With PCP on 06/19/23 but the office canceled her appt. And she needs to see PCP. I gave first available that I am allowed to give for 07/18/23 but pt. Requesting sooner appt. I will sendmessage to provider to see if there is a slot she can anne me to book pt. Protocol Used: Back Pain (Adult) Protocol-Based Disposition: See in Office or Video Visit within 3 Days- first available appt 2/8/24. Video visit not offered Positive Triage Questions: * Pain radiates into the thigh or further down the leg * Patient wants to be seen * Back pain is a chronic symptom (recurrent or ongoing AND lasting > 4 weeks) * All higher-acuity triage questions were negative Care Advice Discussed: * Cold or Heat * Sleep * Activity * Pain Medicines * Telephone Encounter - Leanna Rudolph - 06/27/2023 4:32 PM EST Symptom: Back Pain - Not From Injury Outcome: Schedule an appointment to be seen within 3 days Reason: Caller denied all higher acuity questions The caller accepted this outcome documented in this encounter Plan of Treatment Upcoming Encounters Date Type Department Care Team (Late st Contact Info) Description 09/21/2024 11:00 AM EDT Office Visit [facility] [address] [place] [address] 10/19/2024 2:30 PM EDT Office Visit [facility] [address] [place] [address] Carmen Arauz NP 230 [place] [address] documented as of this encounter Visit Diagnoses Not on filedocumented in this encounter Additional Health Concerns Assessment Noted Time PHQ-9 Depression Total Score: 0 01/19/20 23 9:07 AM EDT documented as of this encounter Care Teams Talent Acquisition Lead Relationship Specialty Start Date End Date Carmen Arauz NP 230 [place] [address] PCP - General Family Medicine 09/16/23 Alla Oliveira Structural Draftsman 07/11/23 09/16/23 documented as of this encounter
--- OUTSIDE RECORDS SUMMARY | 2024-09-18 12:42 | XMS_ITS | Encounter Summary ---
Author Organization [employer] Address [address] [facility] [facility] [address] 7[address] [place] [address] Care Team Providers Care Casino Operations Supervisor Name Role Phone Carmen Arauz NP Primary Care Provider [phone] Reason for Visit * Reason Onset Date Comments Med Refill 09/15/2024 Encounter Details Date Type Department Care Team ([facility] st Contact Info) Description 09/15/2024 Refill [facility] [address] [place] [address] Ashwini Hogue MD [address] [place] [address] Social History Tobacco Use Types Packs/Day Years [...] Description 09/21/2024 11:00 AM EDT Office Visit [facility] [address] [place] [address] 10/19/2024 2:30 PM EDT Office Visit [facility] [address] [place] [address] Carmen Arauz NP [address] [place] [address] documented as of this encounter Visit Diagnoses Not on filedocumented in this encounter Additional Health Concerns Assessment Noted Time PHQ-9 Depression Total Score: 9 02/05/20 24 8:58 AM EDT documented as of this encounter Care Teams Casino Operations Supervisor Relationship Specialty Start Date End Date Carmen Arauz NP [address] [place] [address] PCP - General Family Medicine 09/16/23 documented as of this encounter
--- OUTSIDE RECORDS SUMMARY | 2024-09-18 12:42 | XMS_ITS | Encounter Summary ---
Author Organization [employer] Address [address] [facility] [address] [place] [address] Care Team Providers Care Drug Department Worker Name Role Phone Carmen Arauz NP Primary Care Provider [phone] Reason for Visit * Reason Onset Date Comments Med Refill 09/15/2024 Encounter Details Date Type Department Care Team ([facility] st Contact Info) Description 09/15/2024 Refill [facility] 230 [place], [place] [phone] Carmen Arauz NP 230 [place] [address] Social History Tobacco Use Types Packs/Day Years [...] Description 09/21/2024 11:00 AM EDT Office Visit [facility] [address] [place] [address] 10/19/2024 2:30 PM EDT Office Visit [facility] [address] [place] [address] Carmen Arauz NP [address] [place] [address] documented as of this encounter Visit Diagnoses Not on filedocumented in this encounter Additional Health Concerns Assessment Noted Time PHQ-9 Depression Total Score: 9 02/05/20 24 8:58 AM EDT documented as of this encounter Care Teams Drug Department Worker Relationship Specialty Start Date End Date Carmen Arauz NP [address] [place] [address] PCP - General Family Medicine 09/16/23 documented as of this encounter
--- OUTSIDE RECORDS SUMMARY | 2024-09-18 12:42 | XMS_ITS | Encounter Summary ---
Author Organization [employer] Address [address] [facility] 7t [place] [address] Care Team Providers Care Crew Truck Driver Name Role Phone Carmen Arauz NP Primary Care Provider [phone] Reason for Visit * Reason Onset Date Comments returning phone call 08/13/2022 Encounter Details Date Type Department Care Team ([facility] st Contact Info) Description 08/13/2022 Telephone [facility] MEDICINE [address] [place] [address] Judith Parker MD 230 [place] [address] returning phone call Social History Tobacco Use Types Packs/Day Years [...] encounter Miscellaneous Notes * Telephone Encounter - Eve Hurley - 08/13/2022 1:11 PM EST Tc from pt returning phone call regarding medication. Task was 08/13/2022 Please contact pt at [phone] documented in this encounter Plan of Treatment Upcoming Encounters Date Type Department Care Team ([facility] st Contact Info) Description 09/21/2024 11:00 AM EDT Office Visit [address] [address] 10/19/2024 2:30 PM EDT Office Visit [address] [address] Carmen Arauz NP [address] [place] [address] documented as of this encounter Visit Diagnoses Not on filedocumented in this encounter Care Teams Crew Truck Driver Relationship Specialty Start Date End Date Carmen Arauz NP 230 [place] [address] PCP - General Family Medicine 09/16/23 Alla Oliveira Gis Scientist 07/11/23 09/16/23 documented as of this encounter
--- OUTSIDE RECORDS SUMMARY | 2024-09-18 12:42 | XMS_ITS | Encounter Summary ---
Author Organization [employer] Address [address] [facility] 7t [place] [address] Care Team Providers Care Protection Officer Name Role Phone ReglaCarmen YANNA Primary Care Provider [phone] Encounter Details Date Type Department Care Team ([facility] Contact Info) Description 08/10/[address] [address] Judith Parker MD [address] [place] [address] [phone] Social History Tobacco Use Types Packs/Day Years [...] Upcoming Encounters Date Type Department Care Team ([facility] Contact Info) Description 09/21/2024 11:00 AM EDT Office Visit [address] [phone] 10/19/2024 2:30 PM EDT Office Visit [facility] [address] [place] [address] [place] [address] Carmen Arauz NP [address] [place] [address] documented as of this encounter Visit Diagnoses Not on filedocumented in this encounter Care Teams Protection Officer Relationship Specialty Start Date End Date Carmen Arauz NP [address] [place] [address] PCP - General Family Medicine 09/16/23 Alla Oliveira Workers Compensation Claims Analyst 07/11/23 09/16/23 documented as of this encounter
--- OUTSIDE RECORDS SUMMARY | 2024-09-18 12:42 | XMS_ITS | Encounter Summary ---
Author Organization [employer] Address [address] [facility] [address] 7t [place] [address] Care Team Providers Care Poultry Farmer Name Role Phone Carmen Arauz NP Primary Care Provider [phone] Encounter Details Date Type Department Care Team ([facility] st Contact Info) Description 09/15/2024 Telephone [facility] MEDICINE 230 [place], [place] [phone] Carmen Arauz NP [address] [place] [address] Social History Tobacco Use Types Packs/Day Years [...] encounter Miscellaneous Notes * Telephone Encounter - Ita Olea RN - 09/16/2024 10:37 AM EDT Call returned to pt. Pt states that she does not understanding why she needs to go to chronic pain group. States that she did not find it helpful because she she has already tried injections and has always done everything her doctors have asked her to do. States she is not learning anything new at chronic pain group. Reports that she continues to have severe SI joint pain. States she is not able to sit or stand for long and is not able to sleep. Reports she is stressed and agitated and the painlimits her ability to do anything. States she is not able to take ibuprofen. Reports she is taking acetaminophen 650 mg 2 tabs every 3 hrs. States she is aware she is taking too much Tylenol but doesn't know what else to do. States she is wearing the belt provided by pain management. States she is going to call [facility] to schedule f/u with pain management. Advised request will be sent to pcp for further recommendations. * Telephone Encounter - Purvi Andino - 09/15/2024 11:33 AM EDT Tc from pt returning call. * Telephone Encounter - Ita Olea RN - 09/15/2024 10:12 AM EDT T/C to pt re: message below. No answer, v/m left to return call to Blue team nurses. * Telephone Encounter - Ita Olea RN - 09/15/2024 10:11 AM EDT ----- Message from Bety Vásquez sent at 09/15/2024 9:43 AM EDT ----- Regarding: Patient Request to speak with PCP Patient contacted [facility] to review discrepancy on last visit note with Dr. Giron. Would like to speak with provider as to why she is seeing Dr. Giron for chronic pain management. Please follow up with patient. [facility] already sent note to Dr. Giron regarding visit note. documented in this encounter Plan of Treatment Upcoming Encounters Date Type Department Care Team (Late st Contact Info) Description 09/21/2024 11:00 AM EDT Office Visit [facility] MEDICINE [address] [place] [address] 10/19/2024 2:30 PM EDT Office Visit [facility] MEDICINE [address] [place] [address] Carmen Arauz NP [address] [place] [address] documented as of this encounter Visit Diagnoses Not on filedocumented in this encounter Additional Health Concerns Assessment Noted Time PHQ-9 Depression Total Score: 9 02/05/20 8:58 AM EDT documented as of this encounter Care Teams Poultry Farmer Relationship Specialty Start Date End Date Carmen Arauz NP [address] [place] [address] PCP - General Family Medicine 09/16/23 documented as of this encounter
== END 2024-09-18 13:29 | disposition home or self-care (01) ==
LOC: HO.HGI 11:45
PROVIDERS: PCP Nurse Practitioner Family; Visit Provider Nurse Practitioner
DX: K59.00 Constipation, unspecified (principal); K26.9 Duodenal ulcer, unspecified as acute or chronic, without hemorrhage or perforation; K52.9 Noninfective gastroenteritis and colitis, unspecified
CPT/HCPCS: 99214

== ENCOUNTER → 2024-09-18 11:45 | Outpatient (BNVA) | payer MEDICAID, SELFPAY | PROVIDERS: PCP Nurse Practitioner Family; Visit Provider Nurse Practitioner | DX: R10.13 Epigastric pain (principal); K21.9 Gastro-esophageal reflux disease without esophagitis; K59.00 Constipation, unspecified; K26.9 Duodenal ulcer, unspecified as acute or chronic, without hemorrhage or perforation; K52.9 Noninfective gastroenteritis and colitis, unspecified | CPT/HCPCS: 99212 ==

== ENCOUNTER 2024-09-24 08:42 | Outpatient (REF) | payer MEDICAID, SELFPAY ==
--- OUTSIDE RECORDS SUMMARY | 2024-09-24 09:20 | XMS_ITS | Encounter Summary ---
Author Organization [email or web address] Address [address] [facility] [address] 7t [place] [address] Care Team Providers Care Applied Psychology Chair Name Role Phone Carmen Arauz NP Primary Care Provider [phone] Encounter Details Date Type Department Care Team ([facility] st Contact Info) Description 05/18/2024 Telephone [facility] MEDICINE 230 [place], [place] [phone] Carmen Arauz NP 230 [place] [address] Social History Tobacco Use Types Packs/Day Years [...] Care Team (Late st Contact Info) Description 10/19/2024 2:30 PM EDT Office Visit [facility] MEDICINE 230 [place] [address] Carmen Arauz NP [address] [place] [address] documented as of this encounter Visit Diagnoses Not on filedocumented in this encounter Additional Health Concerns Assessment Noted Time PHQ-9 Depression Total Score: 9 02/05/20 24 8:58 AM EDT documented as of this encounter Care Teams Applied Psychology Chair Relationship Specialty Start Date End Date Carmen Arauz NP 230 [place] [address] PCP - General Family Medicine 09/16/23 documented as of this encounter
--- OUTSIDE RECORDS SUMMARY | 2024-09-24 09:20 | XMS_ITS | Encounter Summary ---
Author Organization [employer] Address [address] [facility] [address] 7t [place] [address] Care Team Providers Care Link Trainer Name Role Phone Carmen Arauz NP Primary Care Provider [phone] Reason for Visit * Reason Onset Date Comments Med Refill 04/15/2024 Encounter Details Date Type Department Care Team ([facility] st Contact Info) Description 04/15/2024 Refill [facility] MEDICINE 230 [place] [address] Judith Parker MD 230 [place] [address] Social History Tobacco Use Types Packs/Day Years [...] Description 10/19/2024 2:30 PM EDT Office Visit [facility] MEDICINE [address] [place] [address] Carmen Arauz NP 230 [place] [address] documented as of this encounter Visit Diagnoses Not on filedocumented in this encounter Additional Health Concerns Assessment Noted Time PHQ-9 Depression Total Score: 9 02/05/20 24 8:58 AM EDT documented as of this encounter Care Teams Link Trainer Relationship Specialty Start Date End Date Carmen Arauz NP 230 [place] [address] PCP - General Family Medicine 09/16/23 documented as of this encounter
--- OUTSIDE RECORDS SUMMARY | 2024-09-24 09:20 | XMS_ITS | Encounter Summary ---
Author Organization [employer] Address [address] [facility] [address] [place] [address] Care Team Providers Care Provider Engagement Executive Name Role Phone Carmen Arauz NP Primary Care Provider [phone] Encounter Details Date Type Department Care Team ([facility] st Contact Info) Description 05/25/2024 Telephone [facility] MEDICINE [address] [place], [place] [phone] Carmen Arauz NP 230 [place] [address] Social History Tobacco Use Types Packs/Day Years [...] Description 10/19/2024 2:30 PM EDT Office Visit [facility] MEDICINE [address] [place] [address] Carmen Arauz NP 230 [place] [address] documented as of this encounter Visit Diagnoses Not on filedocumented in this encounter Additional Health Concerns Assessment Noted Time PHQ-9 Depression Total Score: 9 02/05/20 24 8:58 AM EDT documented as of this encounter Care Teams Provider Engagement Executive Relationship Specialty Start Date End Date Carmen Arauz NP 230 [place] [address] PCP - General Family Medicine 09/16/23 documented as of this encounter
--- OUTSIDE RECORDS SUMMARY | 2024-09-24 09:20 | XMS_ITS | Encounter Summary ---
Author Organization [employer] Address [address] [facility] [address] 7t [place] [address] Care Team Providers Care Development Administrator Name Role Phone Carmen Arauz NP Primary Care Provider [phone] Reason for Visit * Reason Onset Date Comments Nurse Triage 06/27/2023 TelephoneCall 06/27/2023 Encounter Details Date Type Department Care Team ([facility] st Contact Info) Description 06/27/2023 Telephone [facility] MEDICINE 230 [place] [address] Judith Parker MD 230 [place], [place] [phone] Nurse Triage; TelephoneCall Social History Tobacco Use [...] pt is having. Please contact pt at [phone] * Telephone Encounter - Petrona Felix RN - 06/27/2023 4:33 PM EST Called pt. She states that she is looking for an appt. With PCP. Pt. Is seeing pain management and they want to start doing back injections. Pt. States I used to get back injections when I lived in [place] and the injections do not work . [...] Description 10/19/2024 2:30 PM EDT Office Visit [facility] MEDICINE 230 [place] [address] Carmen Arauz NP [address] [place] [address] documented as of this encounter Visit Diagnoses Not on filedocumented in this encounter Additional Health Concerns Assessment Noted Time PHQ-9 Depression Total Score: 0 01/19/20 23 9:07 AM EDT documented as of this encounter Care Teams Development Administrator Relationship Specialty Start Date End Date Carmen Arauz NP [address] [place] [address] PCP - General Family Medicine 09/16/23 Alla Oliveira Industrial Spray Painter 07/11/23 09/16/23 documented as of this encounter
--- OUTSIDE RECORDS SUMMARY | 2024-09-24 09:20 | XMS_ITS | Encounter Summary ---
Author Organization [employer] Address [address] [facility] [address] 7t [place] [address] Care Team Providers Care Bicycle Inspector Name Role Phone Carmen Arauz NP Primary Care Provider [phone] Reason for Visit * Reason Onset Date Comments Med Refill 02/18/2024 Encounter Details Date Type Department Care Team ([facility] st Contact Info) Description 02/18/2024 Refill [facility] MEDICINE 230 [place], [place] [phone] Payton Mcintyre MD [address] [place] [address] Social History Tobacco Use Types Packs/Day Years [...] Description 10/19/2024 2:30 PM EDT Office Visit [facility] MEDICINE [address] [place] [address] Carmen Arauz NP 230 [place] [address] documented as of this encounter Visit Diagnoses Not on filedocumented in this encounter Additional Health Concerns Assessment Noted Time PHQ-9 Depression Total Score: 9 02/05/20 24 8:58 AM EDT documented as of this encounter Care Teams Bicycle Inspector Relationship Specialty Start Date End Date Carmen Arauz NP 230 [place] [address] PCP - General Family Medicine 09/16/23 documented as of this encounter
--- OUTSIDE RECORDS SUMMARY | 2024-09-24 09:20 | XMS_ITS | Encounter Summary ---
Author Organization [employer] Address [address] 7[address] [place] [address] Care Team Providers Care Structural Layout Worker Name Role Phone Carmen Arauz NP Primary Care Provider Reason for Visit * Reason Onset Date Comments Med Refill 05/15/2024 Encounter Details Date Type Department Care Team ([facility] st Contact Info) Description 05/15/[address] [facility] MEDICINE [address] [place], [place] [phone] Judith Parker MD 230 [place], [place] [phone] Mild intermittent asthma, unspecified whether complicated Social [...] Description 10/19/2024 2:30 PM EDT Office Visit [facility] MEDICINE [address] [place] [address] Carmen Arauz NP 230 [place] [address] documented as of this encounter Visit Diagnoses Diagnosis Mild intermittent asthma, unspecified whether complicated documented in this encounter Additional Health Concerns Assessment Noted Time PHQ-9 Depression Total Score: 9 02/05/20 24 8:58 AM EDT documented as of this encounter Care Teams Structural Layout Worker Relationship Specialty Start Date End Date Carmen Arauz NP 230 [place] [address] PCP - General Family Medicine 09/16/23 documented as of this encounter
--- OUTSIDE RECORDS SUMMARY | 2024-09-24 09:20 | XMS_ITS | Encounter Summary ---
Author Organization [employer] Address [address] [facility] [address] 7t [place] [address] Care Team Providers Care Natural Gas Technician Name Role Phone Carmen Arauz NP Primary Care Provider [phone] Reason for Visit * Reason Onset Date Comments Med Refill 12/15/2023 Encounter Details Date Type Department Care Team ([facility] st Contact Info) Description 12/15/2023 Refill [facility] MEDICINE 230 [place], [place] [phone] Payton Mcintyre MD 230 [place] [address] Social History Tobacco Use Types Packs/Day Years [...] Description 10/19/2024 2:30 PM EDT Office Visit [facility] MEDICINE 230 [place] [address] Carmen Arauz NP 230 [place] [address] documented as of this encounter Visit Diagnoses Not on filedocumented in this encounter Additional Health Concerns Assessment Noted Time PHQ-9 Depression Total Score: 0 01/19/20 23 9:07 AM EDT documented as of this encounter Care Teams Natural Gas Technician Relationship Specialty Start Date End Date Carmen Arauz NP 230 [place] [address] PCP - General Family Medicine 09/16/23 documented as of this encounter
--- OUTSIDE RECORDS SUMMARY | 2024-09-24 09:20 | XMS_ITS | Encounter Summary ---
Author Organization [employer] Address [address] [facility] [place] [address] Care Team Providers Care Educational Audiologist Name Role Phone Carmen Arauz NP Primary Care Provider [phone] Reason for Visit * Reason Onset Date Comments Med Refill 09/10/2024 Encounter Details Date Type Department Care Team ([facility] st Contact Info) Description 09/10/2024 Refill [facility] [address] [place] [address] Ashwini Hogue MD [address] [place] [address] Social History Tobacco Use Types Packs/Day Years [...] Description 10/19/2024 2:30 PM EDT Office Visit [facility] MEDICINE 230 [place] [address] Carmen Arauz NP [address] [place] [address] documented as of this encounter Visit Diagnoses Not on filedocumented in this encounter Additional Health Concerns Assessment Noted Time PHQ-9 Depression Total Score: 9 02/05/20 24 8:58 AM EDT documented as of this encounter Care Teams Educational Audiologist Relationship Specialty Start Date End Date Carmen Arauz NP [address] [place] [address] PCP - General Family Medicine 09/16/23 documented as of this encounter
--- OUTSIDE RECORDS SUMMARY | 2024-09-24 09:20 | XMS_ITS | Encounter Summary ---
Author Organization [employer] Address [address] [facility] [address] [facility] [facility] [address] [place] [address] Care Team Providers Care Credit Portfolio Advisor Name Role Phone Carmen Arauz NP Primary Care Provider [phone] Reason for Visit * Reason Onset Date Comments Med Refill 04/15/2024 Encounter Details Date Type Department Care Team (Late st Contact Info) Description 04/15/2024 Refill [facility] MEDICINE 230 [place], [place] [phone] Carmen Arauz NP 230 [place], [place] [phone] Lumbar spondylosis; Lumbar radiculopathy Social History Tobacco [...] 2:30 PM EDT Office Visit [facility] MEDICINE 230 [place] [address] Carmen Arauz NP [address] [place] [address] documented as of this encounter Visit Diagnoses Diagnosis Lumbar spondylosis Lumbosacral spondylosis without myelopathy Lumbar radiculopathy Thoracic or lumbosacral neuritis or radiculitis, unspecified documented in this encounter Additional Health Concerns Assessment Noted Time PHQ-9 Depression Total Score: 9 02/05/20 24 8:58 AM EDT documented as of this encounter Care Teams Credit Portfolio Advisor Relationship Specialty Start Date End Date Carmen Arauz NP [address] [place] [address] PCP - General Family Medicine 09/16/23 documented as of this encounter
--- OUTSIDE RECORDS SUMMARY | 2024-09-24 09:20 | XMS_ITS | Clinical Summary ---
Author Organization [address] [facility] Address [address] [place] [phone] Phone Care Team Providers Care Principal Developer Name Role Phone Physician, Pcp Unknown Primary [...] topic Insurance MEDICAID - [place] Care Teams Principal Developer Relationship Specialty Start Date End Date Physician, Pcp Unknown PCP - General 06/01/24
--- OUTSIDE RECORDS SUMMARY | 2024-09-24 09:20 | XMS_ITS | Encounter Summary ---
Author Organization [employer] Address [address] [facility] [address] 7t [place] [address] Care Team Providers Care Cane Flume Feeding Machine Operator Name Role Phone Carmen Arauz NP Primary Care Provider [phone] Reason for Visit * Reason Comments Med Refill Encounter Details Date Type Department Care Team ([facility] st Contact Info) Description 05/18/2024 Refill [facility] MEDICINE 230 [place], [place] [phone] Judith Parker MD 230 [place], [place] [phone] Mild persistent asthma without complication Social History [...] Description 10/19/2024 2:30 PM EDT Office Visit [facility] MEDICINE [address] [place] [address] Carmen Arauz NP 230 [place] [address] documented as of this encounter Visit Diagnoses Diagnosis Mild persistent asthma without complication documented in this encounter Additional Health Concerns Assessment Noted Time PHQ-9 Depression Total Score: 9 02/05/20 24 8:58 AM EDT documented as of this encounter Care Teams Cane Flume Feeding Machine Operator Relationship Specialty Start Date End Date Carmen Arauz NP 230 [place] [address] PCP - General Family Medicine 09/16/23 documented as of this encounter
--- OUTSIDE RECORDS SUMMARY | 2024-09-24 09:20 | XMS_ITS | Clinical Summary ---
Author Organization [employer] Address [address] [facility] 7t [place] [address] Care Team Providers Care Bulk Tank Driver Name Role Phone Carmen Arauz NP Primary Care Provider [phone] Allergies Active Allergy Reactions Criticality Noted Date [...] of the Xolair. F/u with new zipper trimmer hand. ER precautions discussed. Pt sgrees with the plan. Assessment & Plan (09/16/2023 11:46 AM EDT): PRD 20 mg x 5d, counseled to discuss with zipper trimmer hand (appt next month) re adjusting Xolair dose vs changing to another med so that she doesn't end up using PRD that often. Patient is aware of side effects of halfway use of steroids. DC Zyrtec and use desloratadine Continue Singulair FU with new PCP. Assessment & Plan (01/18/2023 2:16 PM EDT): Do not miss upcoming appointment with employment training specialist PT1 for visit will be provided Assessment & Plan (08/30/2022 9:35 AM EDT): Continue loratadine, singular, prescription for prednisone. Left message for PA specilist for status of the Xolair. F/u with new zipper trimmer hand. ER precautions discussed. Pt sgrees with the [...] Type Department Care Team Description 09/15/2024 Telephone [facility] [address] [place] [address] Carmen Arauz NP 09/15/2024 Refill [facility] [address] [place] [address] Carmen Arauz NP 09/15/2024 Refill [facility] [address] [place] [address] Ashwini Hogue MD 09/14/2024 11:00 AM EDT Office Visit [facility] [address] [place] [address] Joyce Birmingham MD Lumbar radiculopathy, chronic (Primary Dx); Dietary counseling; Exercise counseling; Overweight 09/14/2024 Travel 09/14/2024 Telephone [facility] [address] [place] [address] Carmen Arauz NP Appointment Request 2024 Telephone [facility] [address] [place] [address] Emerita Nash DO Appointment Request 09/10/2024 Refill [facility] [address] [place] [address] Carmen Arauz NP 09/10/2024 Refill [facility] [address] [place] [address] Carmen Arauz NP Lumbar spondylosis; Lumbar radiculopathy; Mild persistent asthma without complication 09/10/2024 Refill [facility] [address] [place] [address] Carmen Arauz NP Hyperpigmentation of skin 09/10/2024 Refill [facility] [address] [place] [address] Ashwini Hogue MD 09/07/2024 Outside Procedure [facility] [address] [place] [address] Guillermo, Irene, OD Presbyopia (Primary Dx) 09/04/2024 9:15 AM EDT Office Visit [facility] [address] [place] [address] GuillermoAndrewn, OD 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) 09/03/2024 Telephone [facility] [address] [place] [address] Carmen Arauz NP Mondays Chronic Pain Group 08/26/2024 Telephone [facility] [address] [place] [address] Carmen Arauz NP Saturday Chronic Pain Group 08/21/2024 Population Health Risk Score [facility] () Department [address] [place] [phone] Provider, Population Health Generic 08/07/2024 Patient Outreach [facility] [address] [place] [address] Carmen Arauz NP Pre-visit Planning ([facility] unable to reach [facility]) 08/06/2024 Refill [facility] [address] [place] [address] Carmen Arauz NP 08/05/2024 Telephone [facility] [address] [place] [address] Carmen Arauz NP Scheduling for pain group 07/23/2024 Telephone [facility] [address] [place] [address] Irene Li, MANISHA 07/21/2024 Refill [facility] [address] [place] [address] Ashwini Hogue MD 07/07/2024 1:45 PM EST Office Visit [facility] [address] [place] [address] Carmen Arauz NP Hyperpigmentation of skin (Primary Dx); Lumbar radiculopathy, chronic 07/02/2024 Telephone [facility] [address] [place] [address] [phone] Tonya Canela MA TP request 07/01/2024 Telephone [facility] [address] [place] [address] [phone] Carmen Arauz NP Change provider from Last 3 Months Immunizations Name Administration Dates Next Due Moderna Covid-19 Vaccine 12+ 05/12/2022 Pfizer Covid-19 Vaccine 1209/26/2023(D eferred: Patient Refused - Patient declined 09/26/23) [...] 2:30 PM EDT Office Visit [facility] [address] [place], [place] [phone] Carmen Arauz NP [address] [place], [place] [phone] Health Maintenance Due Date Last Done Comments [...] EDT Narrative 11/04/2023 11:24 AM EDT ? [facility] ? [address] ?[place] [address] ? Mammography Report ? Signed ? Patient: Tien,Franchesca ?MR#: [id number] ?? 88 ? : 1975 ?Acct:[id number] ? Age/Sex: 48 / F ?ADM Date: 10/07/ ? Loc: HO.MAMMO ? Attending Dr: Carmen B Graef LEAD PERFORMANCE SUPPORT ANALYST ? Ordering Physician: Regla,Carmen B LEAD PERFORMANCE SUPPORT ANALYST ?Results: 1Negati ?? ve ? Date of Service: 10/07/ ?Follow Up: 1 Year From Orig ?? inal Mammogram ? Procedure(s): MM tomosynthesis screening BI ?? Accession Number(s): [id number] ? cc: ReglaCarmen Linette LEAD PERFORMANCE SUPPORT ANALYST ? EXAMINATION: ?? MM SCREENING DIGITAL BREAST [...] by Kusum Chester MD in OV> ? 11/04/231119 ? DD/ 1040 ? TD/TT: ? Press Operator Helper: ? Procedure Note Jayjay, Image - 11/04/2023 [facility] [address] [place] [address] Mammography Report Signed Patient: Franchesca ChauhanMR#: [id number] 88 : 1975Acct:[id number] Age/Sex: 48 / FADM Date: 10/08/23 Loc: HO.MAMMO Attending Dr: Carmen Arauz LEAD PERFORMANCE SUPPORT ANALYST Ordering Physician: Carmen Arauz NPResults: 1Negati ve Date of Service: 10/08/23Follow Up: 1 Year From Orig inal Mammogram Procedure(s): MM tomosynthesis screening BI Accession Number(s): [id number] cc: Carmen Arauz LEAD PERFORMANCE SUPPORT ANALYST EXAMINATION: MM SCREENING DIGITAL BREAST TOMOSYNTHESIS, BILATERAL [...] in OV> 11/04/23 1120 DD/ 1040 TD/TT: Press Operator Helper: us Carmen Arauz NP IMG BI PROCEDURES Final Result * Hepatitis C Antibody Reflex (01/31/2023 8:50 AM EDT) Hepatitis C Antibody Nonreactive Nonreactive [facility] Comment:Antibodies to HCV no t detected; does not exclude early acuteHCV infection. 01/31/2023 8:50 AM EDT 01/31/2023 11:11 AM EDT us Judith Sibley MD LAB BLOOD ORDERABLES Final Result [facility] [address] [place] [phone] * HIV Ab/Ag (FL DP) (01/31/2023 8:50 AM EDT) HIV AB/AG Nonreactive Nonreactive [facility] Comment:HIV-1 p24 Ag and/or HIV-1/HIV-2 Ab not detected.A test result that is nonreactive does not exclude thepossibility of exposure to or infection with HIV-1 and/orHIV-2. Nonreactive results in this assay for individualswith prior exposure to HIV-1 and/or HIV-2 may be due toantigen and antibody levels that are below the limit ofdetection of this assay.The [employer] Clerical Associate HIV Ag/Ab Combo assay result andsupplemental assay results should be interpreted inconjunction with the patient's clinical presentation,history and other laboratory results. If the results areinconsistent with clinical evidence, additional testing issuggested to confirm the result. 01/31/2023 8:50 AM EDT 01/31/2023 11:11 AM EDT us Judith Sibley MD LAB BLOOD ORDERABLES Final Result [facility] [address] [place] [address] [phone] * Lipid Panel, Standard (01/31/2023 8:50 AM EDT) Triglycerides 79 <150 mg/dL [facility] Comment:Desirable Triglyceri de: less than 150 mg/dLBorderline High Triglyceride 150-199 mg/dLHigh Triglyceride: 200-499 mg/dLVery High Triglyceride: greater than or equal to 5OO mg/dL Cholesterol 150 <200 mg/dL [facility] Comment:Desirable Cholestero l: less than 200 mg/dLBorderline High Cholesterol: 200-239 mg/dLHigh Cholesterol: greater than 239 mg/dL LDL Cholesterol Calculated 86 <100 mg/dL [facility] Comment:Desirable LDL: less than 100 mg/dLNear Optimal/Above Optimal LDL: 110- 129 mg/dLBorderline High LDL: 130-159 mg/dLHigh LDL: 160-189 mg/dLVery High LDL: greater than or equal to 190 mg/dL HDL Cholesterol 49 >40 mg/dL [facility] Comment:Desirable HDL: great er than 40 mg/dL Note: This HDL assay may give artificially low results in patients with liver disease. Blood Venous blood specimen / Unknown 01/31/2023 8:50 AM EDT 01/31/2023 11:11 AM EDT Judith Sibley MD LAB BLOOD ORDERABLES Final Result [facility] [address] [place] [address] [phone] * THINPREP TIS PAP AND HPV [...] been evaluated with computer assisted technology. [facility] Sales Representative Printing Paper : SEE COMMENT [facility] Comment: SXA, CT(ASCP) CT screening location: [address] ??[address] HPV nRNA E6/E7 Not Detected Not Detected [facility] Comment: Methodology: Rn Cvicu-Mediated Amplification This assay detects E6/E7 viral messenger RNA (mRNA) from 14 high-risk HPV types (16,18,31,33,35,39,45,51,52,56,58,59,66,68). ? Cervical sources are required for HPV testing. If a vaginal source from a patient who has had a total hysterectomy with removal of cervix was ?? submitted, please contact the testing laboratory for alternative testing options. ?? For additional information, please refer to http://education.Hubspan/faq/GTW027h2 (This link if provided for information/ educational [...] status not provided 04/02/2022 4:20 PM EDT us Parag Bush MD LAB PATHOLOGY ORDERABLES Fin al Result [facility] from Last 3 Months or Most Recently Relevant to Health Maintenance Insurance [facility] [employer] Care Teams Bulk Tank Driver Relationship Specialty Start Date End Date Carmen Arauz NP [address] [place] [address] PCP - General Family Medicine 09/16/23
--- OUTSIDE RECORDS SUMMARY | 2024-09-24 09:20 | XMS_ITS | Encounter Summary ---
Author Organization [employer] Address [address] [facility] [address] [facility] [facility] [address] 7t [place] [address] Care Team Providers Care Corporate Relations Director Name Role Phone Carmen Arauz NP Primary Care Provider [phone] Reason for Visit * Reason Onset Date Comments Med Refill 05/17/2023 Encounter Details Date Type Department Care Team (Late st Contact Info) Description 05/17/2023 Refill [facility] MED[facility] [address] [place], [place] [phone] Emerita Nash DO [address] [place], [place] [phone] Social History Tobacco Use Types Packs/Day Years [...] Description 10/19/2024 2:30 PM EDT Office Visit [facility] [address] [place] [address] Carmen Arauz NP [address] [place] [address] documented as of this encounter Visit Diagnoses Not on filedocumented in this encounter Additional Health Concerns Assessment Noted Time PHQ-9 Depression Total Score: 0 01/19/20 23 9:07 AM EDT documented as of this encounter Care Teams Corporate Relations Director Relationship Specialty Start Date End Date Carmen Arauz NP [address] [place] [address] PCP - General Family Medicine 09/16/23 Alla Oliveira [employer] Goods Drilling Machine Operator 07/11/23 09/16/23 documented as of this encounter
--- OUTSIDE RECORDS SUMMARY | 2024-09-24 09:20 | XMS_ITS | Encounter Summary ---
Author Organization [employer] Address [address] [facility] [address] 7[address] [place] [address] Care Team Providers Care Manager Cardiology Name Role Phone Carmen Arauz NP Primary Care Provider [phone] Reason for Visit * Reason Onset Date Comments Appointment Request 2024 Encounter Details Date Type Department Care Team ([facility] st Contact Info) Description 2024 Telephone [facility] [address] [place], [place] [phone] Emerita Nash DO [address] [place], [place] [phone] Appointment Request Social History Tobacco Use Types [...] requesting a to r/s appt from 08/14/24. Cyber Security Manager advised pt that there is no appt available and told pt that she would be put on a recall for whenever there is a opening. Contact pt at [phone] documented in this encounter Plan of Treatment Upcoming Encounters Date Type Department Care Team (Late st Contact Info) Description 10/19/2024 2:30 PM EDT Office Visit [facility] [address] [place] [address] Carmen Arauz NP [address] [place] [address] documented as of this encounter Visit Diagnoses Not on filedocumented in this encounter Additional Health Concerns Assessment Noted Time PHQ-9 Depression Total Score: 9 02/05/20 24 8:58 AM EDT documented as of this encounter Care Teams Manager Cardiology Relationship Specialty Start Date End Date Carmen Arauz NP [address] [place] [address] PCP - General Family Medicine 09/16/23 documented as of this encounter
--- OUTSIDE RECORDS SUMMARY | 2024-09-24 09:20 | XMS_ITS | Encounter Summary ---
Author Organization [employer] Address [address] [place] [address] Care Team Providers Care Inspector And Adjuster Golf Club Head Name Role Phone Carmen Arauz NP Primary Care Provider [phone] Reason for Visit * Reason Onset Date Comments Nurse Triage 05/26/2024 Encounter Details Date Type Department Care Team ([facility] st Contact Info) Description 05/26/2024 Telephone [facility] [address] [place], [place] [phone] Carmen Arauz, YANNA [address] [place], [place] [phone] Nurse Triage Social History Tobacco Use Types [...] Miscellaneous Notes * Telephone Encounter - Elza Fcuhs RN - 05/26/2024 11:26 AM EST Triage call Pt was last seen in [facility] 05/25/24. Pt has been doing everything as [...] call regarding prior message. Contact pt at [phone] * Telephone Encounter - Adalid Joe - 05/26/2024 10:57 AM EST Symptom: Earache Outcome: Schedule an urgent appointment (within 1 hour) or talk to a nurse or provider soon Reason: Severe pain now The caller accepted this outcome. documented in this encounter Plan of Treatment Upcoming Encounters Date Type Department Care Team (Late st Contact Info) Description 10/19/2024 2:30 PM EDT Office Visit [facility] [address] [place] [address] Carmen Arauz NP [address] [place] [address] documented as of this encounter Visit Diagnoses Not on filedocumented in this encounter Additional Health Concerns Assessment Noted Time PHQ-9 Depression Total Score: 9 02/05/20 24 8:58 AM EDT documented as of this encounter Care Teams Inspector And Adjuster Golf Club Head Relationship Specialty Start Date End Date Carmen Arauz NP [address] [place] [address] PCP - General Family Medicine 09/16/23 documented as of this encounter
--- OUTSIDE RECORDS SUMMARY | 2024-09-24 09:20 | XMS_ITS | Encounter Summary ---
Author Organization [employer] Address [address] 7[address] [place] [address] Care Team Providers Care Charging Plug Placer Name Role Phone Carmen Arauz NP Primary Care Provider [phone] Reason for Visit * Reason Onset Date Comments Med Refill 10/22/2023 Encounter Details Date Type Department Care Team (Late st Contact Info) Description 10/22/2023 Refill [facility] [address] [place] [address] Payton Mcintyre MD [address] [place] [address] Social History Tobacco Use Types Packs/Day Years [...] Description 10/19/2024 2:30 PM EDT Office Visit [facility] [address] [place] [address] Carmen Arauz NP [address] [place] [address] documented as of this encounter Visit Diagnoses Not on filedocumented in this encounter Additional Health Concerns Assessment Noted Time PHQ-9 Depression Total Score: 0 01/19/20 23 9:07 AM EDT documented as of this encounter Care Teams Charging Plug Placer Relationship Specialty Start Date End Date Carmen Arauz NP [address] [place] [address] PCP - General Family Medicine 09/16/23 documented as of this encounter
--- OUTSIDE RECORDS SUMMARY | 2024-09-24 09:20 | XMS_ITS | Encounter Summary ---
Author Organization [employer] Address [address] [facility] [address] [address] [address] [place] [address] Care Team Providers Care Bus Matron Name Role Phone Carmen Arauz NP Primary Care Provider [phone] Reason for Visit * Reason Onset Date Comments triage 08/16/2022 Encounter Details Date Type Department Care Team ([facility] st Contact Info) Description 08/16/2022 Telephone [facility] MED[facility] [address] [place], [place] [phone] Judith Parker MD [address] [place], [place] [phone] triage Social History Tobacco Use Types Packs/Day [...] Description 10/19/2024 2:30 PM EDT Office Visit [facility] [address] [place] [address] Carmen Arauz NP [address] [place] [address] documented as of this encounter Visit Diagnoses Not on filedocumented in this encounter Care Teams Bus Matron Relationship Specialty Start Date End Date Carmen Arauz NP [address] [place] [address] PCP - General Family Medicine 09/16/23 Alla Oliveira Finishing Range Supervisor 07/11/23 09/16/23 documented as of this encounter
--- OUTSIDE RECORDS SUMMARY | 2024-09-24 09:20 | XMS_ITS | Encounter Summary ---
Author Organization [email or web address] Address [address] [facility] [address] [place] [address] Care Team Providers Care Export Packer Name Role Phone Carmen Arauz NP Primary Care Provider [phone] Reason for Visit * Reason Onset Date Comments Med Refill 11/25/2023 Encounter Details Date Type Department Care Team (Late st Contact Info) Description 11/25/2023 Refill [facility] [address] [place] [address] Payton Mcintyre MD [address] [place] [address] Social History Tobacco Use Types Packs/Day Years [...] Description 10/19/2024 2:30 PM EDT Office Visit [facility] MEDICINE [address] [place] [address] Carmen Arauz NP 230 [place] [address] documented as of this encounter Visit Diagnoses Not on filedocumented in this encounter Additional Health Concerns Assessment Noted Time PHQ-9 Depression Total Score: 0 01/19/20 23 9:07 AM EDT documented as of this encounter Care Teams Export Packer Relationship Specialty Start Date End Date Carmen Arauz NP 230 [place] [address] PCP - General Family Medicine 09/16/23 documented as of this encounter
--- OUTSIDE RECORDS SUMMARY | 2024-09-24 09:20 | XMS_ITS | Encounter Summary ---
Author Organization [employer] Address [address] [facility] [address] [place] [address] Care Team Providers Care Certified Fraud Examiner Name Role Phone Carmen Arauz NP Primary Care Provider [phone] Reason for Visit * Reason Onset Date Comments Med Refill 04/15/2024 Encounter Details Date Type Department Care Team ([facility] st Contact Info) Description 04/15/2024 Refill [facility] MEDICINE [address] [place], [place] [phone] Name, MD Harvinder [address] [place] [address] Mild persistent asthma without complication Social History [...] Description 10/19/2024 2:30 PM EDT Office Visit [facility] MEDICINE [address] [place] [address] Carmen Arauz NP [address] [place] [address] documented as of this encounter Visit Diagnoses Diagnosis Mild persistent asthma without complication documented in this encounter Additional Health Concerns Assessment Noted Time PHQ-9 Depression Total Score: 9 02/05/20 24 8:58 AM EDT documented as of this encounter Care Teams Certified Fraud Examiner Relationship Specialty Start Date End Date Carmen Arauz NP [address] [place] [address] PCP - General Family Medicine 09/16/23 documented as of this encounter
--- OUTSIDE RECORDS SUMMARY | 2024-09-24 09:20 | XMS_ITS | Encounter Summary ---
Author Organization [employer] Address [address] [facility] 7t [place] [address] Care Team Providers Care Dissolver Operator Name Role Phone Carmen Arauz NP Primary Care Provider [phone] Reason for Visit * Reason Onset Date Comments Med Refill 09/10/2024 Encounter Details Date Type Department Care Team (Late st Contact Info) Description 09/10/2024 Refill [facility] [address] [place], [place] [phone] Carmen Arauz NP [address] [place] [address] Hyperpigmentation of skin Social History Tobacco Use [...] Description 10/19/2024 2:30 PM EDT Office Visit [facility] [address] [place] [address] Carmen Arauz NP [address] [place] [address] documented as of this encounter Visit Diagnoses Diagnosis Hyperpigmentation of skin Other dyschromia documented in this encounter Additional Health Concerns Assessment Noted Time PHQ-9 Depression Total Score: 9 02/05/20 24 8:58 AM EDT documented as of this encounter Care Teams Dissolver Operator Relationship Specialty Start Date End Date Carmen Arauz NP [address] [place] [address] PCP - General Family Medicine 09/16/23 documented as of this encounter
--- OUTSIDE RECORDS SUMMARY | 2024-09-24 09:20 | XMS_ITS | Encounter Summary ---
Author Organization [employer] Address [address] [place] [address] Care Team Providers Care Bushel Worker Name Role Phone Carmen Arauz NP Primary Care Provider [phone] Reason for Visit * Reason Onset Date Comments Med Refill 09/10/2024 Encounter Details Date Type Department Care Team ([facility] st Contact Info) Description 09/10/2024 Refill [facility] [address] [place] [address] Carmen Arauz NP [address] [place] [address] Social History Tobacco Use Types Packs/Day Years [...] 10/19/2024 2:30 PM EDT Office Visit [facility] MEDICINE [address] [place] [address] Carmen Arauz NP [address] [place] [address] documented as of this encounter Visit Diagnoses Not on filedocumented in this encounter Additional Health Concerns Assessment Noted Time PHQ-9 Depression Total Score: 9 02/05/20 24 8:58 AM EDT documented as of this encounter Care Teams Bushel Worker Relationship Specialty Start Date End Date Carmen Arauz NP [address] [place] [address] PCP - General Family Medicine 09/16/23 documented as of this encounter
--- OUTSIDE RECORDS SUMMARY | 2024-09-24 09:20 | XMS_ITS | Encounter Summary ---
Author Organization [employer] Address [address] [facility] [address] [facility] [address] [place] [address] Care Team Providers Care Elderly Companion Name Role Phone Carmen Arauz NP Primary Care Provider [phone] Reason for Visit * Reason Onset Date Comments Med Refill 06/22/2024 Encounter Details Date Type Department Care Team ([facility] st Contact Info) Description 06/22/[address] [facility] [address] [place] [address] Ashwini Hogue MD [address] [place] [address] Social History Tobacco Use Types Packs/Day Years [...] PM EDT Office Visit [facility] MEDICINE [address] [place] [address] Carmen Arauz NP [address] [place] [address] documented as of this encounter Visit Diagnoses Not on filedocumented in this encounter Additional Health Concerns Assessment Noted Time PHQ-9 Depression Total Score: 9 02/05/20 24 8:58 AM EDT documented as of this encounter Care Teams Elderly Companion Relationship Specialty Start Date End Date Carmen Aruaz NP [address] [place] [address] PCP - General Family Medicine 09/16/23 documented as of this encounter
--- OUTSIDE RECORDS SUMMARY | 2024-09-24 09:20 | XMS_ITS | Encounter Summary ---
Author Organization [employer] Address [address] [facility] 7t [place] [address] Care Team Providers Care Salon Supervisor Name Role Phone Carmen Arauz NP Primary Care Provider [phone] Encounter Details Date Type Department Care Team ([facility] Contact Info) Description 08/10/2022 Abstract [facility] MEDICINE [address] [place] [address] [phone] Judith Parker MD [address] [place] [address] [phone] Social History Tobacco Use Types Packs/Day Years [...] Upcoming Encounters Date Type Department Care Team ([facility] Contact Info) Description 10/19/2024 2:30 PM EDT Office Visit [facility] [address] [place] [address] [phone] Carmen Arauz NP [address] [place], [place] [phone] documented as of this encounter Visit Diagnoses Not on filedocumented in this encounter Care Teams Salon Supervisor Relationship Specialty Start Date End Date Carmen Arauz NP [address] [place] [address] PCP - General Family Medicine 09/16/23 Alla Oliveira Proposal Consultant 07/11/23 09/16/23 documented as of this encounter
--- OUTSIDE RECORDS SUMMARY | 2024-09-24 09:20 | XMS_ITS | Encounter Summary ---
Author Organization [employer] Address [address] [facility] [address] 7[address] [place] [address] Care Team Providers Care Asparagus Buncher Name Role Phone Carmen Arauz NP Primary Care Provider [phone] Reason for Visit * Reason Onset Date Comments Nurse Triage 05/15/2024 Encounter Details Date Type Department Care Team ([facility] st Contact Info) Description 05/15/2024 Telephone [facility] MEDICINE [address] [place], [place] [phone] Carmen Arauz, YANNA [address] [place], [place] [phone] Nurse Triage Social History Tobacco Use Types [...] to follow with patient. Patient reaced at [phone]. Protocol Used: Tinnitus (Adult) Protocol-Based Disposition: See [...] caller accepted this outcome. Contact pt at [phone] documented in this encounter Plan of Treatment Upcoming Encounters Date Type Department Care Team (Late st Contact Info) Description 10/19/2024 2:30 PM EDT Office Visit [facility] MEDICINE [address] [place] [address] Carmen Arauz NP [address] [place] [address] documented as of this encounter Visit Diagnoses Not on filedocumented in this encounter Additional Health Concerns Assessment Noted Time PHQ-9 Depression Total Score: 9 02/05/20 8:58 AM EDT documented as of this encounter Care Teams Asparagus Buncher Relationship Specialty Start Date End Date Carmen Arauz NP [address] [place] [address] PCP - General Family Medicine 09/16/23 documented as of this encounter
--- OUTSIDE RECORDS SUMMARY | 2024-09-24 09:20 | XMS_ITS | Encounter Summary ---
Author Organization [employer] Address [address] [facility] [address] [address] 7[address] [place] [address] Care Team Providers Care Social Sciences Professor Name Role Phone Carmen Arauz NP Primary Care Provider [phone] Reason for Visit * Reason Onset Date Comments Med Refill 06/22/2024 Encounter Details Date Type Department Care Team ([facility] st Contact Info) Description 06/22/2024 Refill [facility] MEDICINE [address] [place], [place] [phone] Carmen Arauz NP [address] [place], [place] [phone] Mild persistent asthma without complication Social History [...] TC from pt asking about referral for FLIGHT OPERATIONS DISPATCH CLERK. Nurse informed pt that a message has been sent to her provider, but the referral has not been placed yet. Pt verbalized understanding and denies anyfurther questions or concerns at this time. documented in this encounter Plan of Treatment Upcoming Encounters Date Type Department Care Team (Late st Contact Info) Description 10/19/2024 2:30 PM EDT Office Visit [facility] MEDICINE [address] [place] [address] Carmen Arauz NP [address] [place] [address] documented as of this encounter Visit Diagnoses Diagnosis Mild persistent asthma without complication documented in this encounter Additional Health Concerns Assessment Noted Time PHQ-9 Depression Total Score: 9 02/05/20 8:58 AM EDT documented as of this encounter Care Teams Social Sciences Professor Relationship Specialty Start Date End Date Carmen Arauz NP [address] [place] [phone] PCP - General Family Medicine 09/16/23 documented as of this encounter
--- OUTSIDE RECORDS SUMMARY | 2024-09-24 09:20 | XMS_ITS | Encounter Summary ---
Author Organization [employer] Address [address] [facility] 7t [place] [address] Care Team Providers Care Coil Winding Machines Set Up Mechanic Name Role Phone Carmen Arauz NP Primary Care Provider Encounter Details Date Type Department Care Team (Late Contact Info) Description 09/03/2022 Telephone [facility] MEDICINE [address] [place] [address] [phone] Judith Parker MD [address] [place] [address] [phone] Social History Tobacco Use Types Packs/Day Years [...] Encounters Date Type Department Care Team (Late Contact Info) Description 10/19/2024 2:30 PM EDT Office Visit [facility] MEDICINE [address] [place] [address] [phone] Carmen Arauz NP [address] [place] [address] documented as of this encounter Visit Diagnoses Not on filedocumented in this encounter Care Teams Coil Winding Machines Set Up Mechanic Relationship Specialty Start Date End Date Carmen Arauz NP [address] [place] [address] PCP - General Family Medicine 09/16/23 Alla Oliveira Reclaimer 07/11/23 09/16/23 documented as of this encounter
--- OUTSIDE RECORDS SUMMARY | 2024-09-24 09:20 | XMS_ITS | Encounter Summary ---
Author Organization [employer] Address [address] [facility] [address] [place] [address] Care Team Providers Care Supervisor Telephone Information Name Role Phone Carmen Arauz NP Primary Care Provider [phone] Reason for Visit * Reason Onset Date Comments Med Refill 11/25/2023 Encounter Details Date Type Department Care Team (Late st Contact Info) Description 11/25/2023 Refill [facility] MEDICINE [address] [place], [place] [phone] Judith Parker MD 230 [place], [place] [phone] Mild persistent asthma without complication Social History [...] Description 10/19/2024 2:30 PM EDT Office Visit [facility] MEDICINE [address] [place] [address] Carmen Arauz NP [address] [place] [address] documented as of this encounter Visit Diagnoses Diagnosis Mild persistent asthma without complication documented in this encounter Additional Health Concerns Assessment Noted Time PHQ-9 Depression Total Score: 0 01/19/20 23 9:07 AM EDT documented as of this encounter Care Teams Supervisor Telephone Information Relationship Specialty Start Date End Date Carmen Arauz NP [address] [place] [address] PCP - General Family Medicine 09/16/23 documented as of this encounter
--- OUTSIDE RECORDS SUMMARY | 2024-09-24 09:20 | XMS_ITS | Encounter Summary ---
Author Organization [employer] Address [address] [facility] 7t [place] [address] Care Team Providers Care Customer Services Supervisor Name Role Phone Carmen Arauz NP Primary Care Provider [phone] Reason for Visit * Reason Onset Date Comments returning phone call 08/13/2022 Encounter Details Date Type Department Care Team ([facility] st Contact Info) Description 08/13/2022 Telephone [facility] MEDICINE [address] [place], [place] [phone] Judith Parker MD [address] [place] [address] returning phone call Social History Tobacco Use [...] Task was 08/13/2022 Please contact pt at [phone] documented in this encounter Plan of Treatment Upcoming Encounters Date Type Department Care Team (Late st Contact Info) Description 10/19/2024 2:30 PM EDT Office Visit [facility] MEDICINE [address] [place] [address] Carmen Arauz NP [address] [place] [address] documented as of this encounter Visit Diagnoses Not on filedocumented in this encounter Care Teams Customer Services Supervisor Relationship Specialty Start Date End Date Carmen Arauz NP [address] [place] [address] PCP - General Family Medicine 09/16/23 Alla Oliveira Commercial Development Manager 07/11/23 09/16/23 documented as of this encounter
[2024-09-24 11:54] LABS: C Reactive Protein 0.13 mg/dL (< or = 0.50)
[2024-09-24 12:11] LABS: TSH reflex Free T4 0.46 uIU/mL (0.32-4.0)
[2024-09-25 14:09] LABS: Transglutaminase Ab IgG <1.0 U/mL; Transglutaminase IgA <1.0 U/mL
== END 2024-09-24 08:43 | disposition home or self-care (01) ==
LOC: HO.HHCL 08:42
PROVIDERS: Visit Provider Nurse Practitioner
DX: K52.9 Noninfective gastroenteritis and colitis, unspecified (principal)
CPT/HCPCS: 36415; 84443; 86140; 86364

== ENCOUNTER 2024-09-25 08:46 | Outpatient (AMB) | payer MEDICAID, SELFPAY ==
[2024-09-25 09:00] VITALS: BP 135/77; PULSE 79; O2SAT 100; BMI 30.3
--- NOTE | 2024-09-25 09:00 | MHC.OFFVIS ---
Vital Signs 09/25/24 09:00 Height 5 ft 5 in Weight 182 lb BMI 30.3 BP 135/77 Blood Pressure Location Rt brachial Position Sitting Pulse 79 Pulse Source Pulse Oximeter Pulse Oximetry (%) 100 Oxygen Delivery Method Room Air Intake Visit Reasons: FU back pain Coat Joiner Lockstitch Required: No Allergies Penicillins [PENICILLINS] Allergy (Unknown, Verified 09/25/24 09:01) HIVES Medication List - Last Reconciled 09/25/24 by Rosy Lopez, [employer] acetaminophen ER 650 mg PO Q12H albuterol sulfate 90 mcg/actuation 2 puffs inhalation Q6H PRN albuterol sulfate mg inhalation Q4H PRN budesonide-formoterol 160-4.5 mcg/actuation (Symbicort) 2 puffs inhalation BID epinephrine IM DIRECTED PRN famotidine 40 mg PO QNOON PRN loratadine (Allergy Relief (loratadine)) 10 mg PO DAILY PRN montelukast (Singulair) 10 mg PO BEDTIME omalizumab (Xolair) 300 mg subcut Q4W ondansetron 4 mg PO Q6H pantoprazole (Protonix) 40 mg PO BID 30 days polyethylene glycol 3350 (Miralax) 17 grams PO .qhs 30 days sucralfate (Carafate) 2 grams (2 x 1 gram) PO .q noon HPI Comments Details: The patient is a 49-year-old female presenting with chronic low back and right SI joint pain. The pain is primarily located in the lower back and radiates through the buttocks and down the right leg, extending below the knee and into the adames and heel. She describes the pain as severe (10/10) and chronic, having returned and worsened since last summer following a right sacroiliac joint injection in Oct, 2023. The pain is precipitated by activities like walking, changing positions, supine sleeping, bending and is minimally alleviated by the use of a sacroiliac joint belt. Her medical history includes osteoarthritis in both knees, with prior right knee surgery and gel and cortisone injections in both knees, currently experiencing more pain in her left knee. She denies recent significant knee pain but is scheduled for an upcoming Orthopedic consultation. Her MRI from 2 years ago indicated arthritis and mild to moderate foraminal narrowing at L3-L4 and L4-L5, minimal at L5-S1 as noted below. The patient experiences depression, attributing her mood to the disabling nature of her back pain. She does not work and reports significant daily life limitations. Her mental health and sleep are negatively impacted by her pain, and she experiences hair loss due to stress. Additionally, she reports occasional numbness of the right side and leg weakness related to her back issues, but not to her knees. - Onset and Timing: Persistent, chronic pain for >5 years, worsened since the summer - Quality and Character: Severe, debilitating, sharp, stabbing, throbbing, described as a lot, a lot of pain - Primary Location: Lower back - Radiation: Through buttocks down the right leg, below the knee, into the adames, and heel - Exacerbating Factors: Walking, sitting, lying flat, and bending backward - Relieving Factors: Minimal relief with sacroiliac joint belt - Interference with Activities: Difficulty walking, unable to perform daily activities, inability to sleep - Affect: Reports severe stress and depression due to inability to perform daily activities - Analgesia: Severe pain level at 10/10; previous right SI joint injections, current use of Tylenol - Adverse Effects: None reported related to pain medications - Activities of Daily Living: Greatly limited by pain, difficulty with mobility and sleep - Aberrant Drug Related Behaviors: None reported; patient mentioned oxycodone was effective in the past PRIOR 11/12/23: Patient presents today to assess response to Right Therapeutic SIJ injection on 11/05/[address] Henriquez. Patient reports 0% pain relief since procedure without any improvement in her daily functioning, mobility or sleep. Patient reports wearing SI joint belt provided at previous visit on most days. We discussed undergoing SI innervation diagnostic injections under sedation for potential Curonix PNS trial. Patient will review information at home with her family and notify our office with her decision. She also continues to experience significant right knee pain and is scheduled to undergo gel injections at Orthopedic's office. Denies any recent cough, cold, infection, fever, any significant changes in her medical history, medications or recent hospitalizations. Past Procedures: 11/05/23: Right Therapeutic SIJ injection-0% pain relief PRIOR: Patient presents today for follow-up after Neurosurgical evaluation on 09/25/[address] Aly. Patient reports she was recommended to address her right sacroiliac joint pain. Patient states most of her back pain is localized to the right side and extends to right sacral area and lateral hip with intermittent radiation into her right lower leg. She is also undergoing orthopedic evaluation for bilateral knee pain worse on the right and pending right knee MRI to rule out tearing of her medial menisci. Her walking capacity, mobility and functioning is limited due to significant pain. She reports no pain relief with short script of tramadol previously and continues to regularly take Tylenol Arthritis, Ibuprofen 800 mg Q8H, methocarbamol and lidocaine patches with continued symptoms. Patient denies any fever, abdominal or groin pain, foot drop, bladder or bowel incontinence or saddle anesthesia. PRIOR: Patient is a pleasant 47 years old female with prior lumbar spondylosis, multiple surgeries for left wrist, chronic lower back pain, left knee pain, asthma, lumbar radiculopathy presents today for initial evaluation for low back pain. Denies any recent or past injury, trauma, or injury. Patient was followed by [facility] prior to moving back to [place] and was referred to [facility] and [facility] for treatments. Patient has declined injections for both pain clinics as she has had multiple back injections in [place] which did not improve her pain or functioning and were very painful. She sees [facility] for left knee pain. Her back pain is axial and also radiates into her bilateral lateral hips and into lower legs anteriorly and posteriorly. SLR testing is positive only on the right. Patient also has significant tenderness in the projection of both sacroiliac joint areas. Reports numbness and tingling with prolonged sitting and standing in her lower legs and feet. Chronic pain negatively affects her daily activities, functioning, mobility, mood, sleep and social interactions. Denies any fever, weight loss, abdominal pain, foot drop, bladder or bowel incontinence or saddle anesthesia. Reports lower extremity intermittent weakness with severe pain in her back or left knee. Patient reports she was sent to another physical therapy by [facility] recently but cannot pursue it at this time due to significant lower back pain especially with bending. She reports completing PT, chiropractic adjustments and massages in [place] with minimal and short term improvements. Location Low back pain, at times radiates to bilateral hips Duration Chronic pain for 4 years Characteristics of symptom or complaint Aching, stabbing, sharp, throbbing, aching Aggravating or associated factors Movements, bending, laying flat, walking, sitting, standing Relieving factors Tylenol, Ibuprofen, tried gabapentin and baclofen Treatment PT, chiropractic therapy, massages, multiple back injections in [facility] Medical History (Updated 09/25/24 @ 10:05 by JOSELINE Jones) Back pain GERD (gastroesophageal reflux disease) Depression Asthma Bilateral knee pain Lumbar back pain with radiculopathy affecting right lower extremity Chronic urticaria Surgical History History of esophagogastroduodenoscopy (EGD) H/O colonoscopy S/P right knee arthroscopy (03/20/24) H/O tubal ligation Hx of hand surgery (~2013) Family History Father Throat cancer Family/Other Breast cancer Social History Are you a primary family day carer to a significant other at home: No Do you presently have visiting nurse or other home services: No Alcohol intake: never Patient Tobacco Use Status: Current everyday Tobacco user Tobacco use type: Cigarette Cigarette Packs Per Day: 1.0 Cigarettes Per Day: 6 Substance Use Type: Marijuana Current occupational status: unemployed Current occupation: rt handed Review of Systems Const Details: - Musculoskeletal: Reports chronic low back pain, knee pain, right hip arthritis. Denies significant current knee pain. - Neurological: Reports numbness on the right side, occasional leg weakness. Denies bladder or bowel dysfunction or saddle anesthesia. - Psychiatric: Reports stress and depression related to back pain. Denies hallucinations or suicidal thoughts. - General: Reports inability to sleep. All systems reviewed & are unremarkable except as noted in HPI and below Physical Exam Vital Signs: Last Vital Signs Pulse 79 09/25/24 09:00 BP 135/77 09/25/24 09:00 Pulse Ox 100 09/25/24 09:00 Oxygen Delivery Method Room Air 09/25/24 09:00 BMI result Body Mass Index 30.3 General: Appears afebrile. Alert and oriented. Mood and affect appropriate. Follows and participates in conversation appropriately. Respiratory effort is unlabored. No cough. Able to transition from sit to stand unassisted. Patient is wearing SI joint belt. General: Yes no CVA tenderness Back/Spine/Pelvis Other: Limited lumbar ROM due to pain. Antalgic gait, no limping. Lumbar flexion and bending is limited, reproduces mild to moderate pain. Lumbar extension is limited and reproduces moderate to severe pain. Demonstrates 5/5 left and 4/5 right due to pain strength of quadriceps bilaterally as well as flexion/dorsiflexion of bilateral feet against resistance. 2+ pedal pulses bilaterally. Facet loading test positive bilaterally. Anthony?s, [place], Pelvic compression and Stinchfield tests are positive bilaterally, right>left. No groin pain with I/E hip rotations. Valsalva maneuver negative. Back: no CVA tenderness and back tenderness Cervical Spine: cervical ROM normal, cervical muscular tenderness, pain with cervical ROM and No Cervical spine tenderness Thoracic/Lumbar Spine: thoracic and lumbar spine normal to inspection, Thoracic/lumbar spine scar(s), Lasegue's sign negative, straight leg raise negative bilaterally, pain with thoraco-lumbar ROM, paraspinal muscle tenderness, thoraco-lumbar ROM limited, No thoracic spinal tenderness and lumbar spinal tenderness (L4-S1) Pelvis: buttock tenderness on the right Sacroiliac joints: bilaterally (Right>Left) tender to palpation Extrem General: Yes capillary refill normal, Yes no clubbing, cyanosis or edema and Yes no calf tenderness Results Reviewed Results Reviewed: MR LUMBAR SPINE WITHOUT CONTRAST 06/05/23 CLINICAL INFORMATION: Right lower extremity radiculopathy and low back pain. COMPARISON: X-ray lumbar spine dated 12/14/2015. FINDINGS: VERTEBRAL BODIES AND PARASPINAL STRUCTURES: There is very mild endplate edema and reduced intradiscal signal with a mild posterior subluxation at the L4-L5 level. The remaining discs are fairly well-hydrated. No compression fractures are identified. The paraspinal soft tissues appear normal. The imaged bony pelvis is unremarkable. CONUS MEDULLARIS AND CAUDA EQUINA: The distal cord, conus tip, and cauda equina nerve roots are normal. SPINAL LEVELS: L1-L2: Minimal annular bulge and very mild facet arthropathy without central canal stenosis or foraminal narrowing. L2-L3: Mild facet arthropathy. No significant disc pathology. No central canal stenosis or foraminal narrowing. L3-L4: Mild posterior subluxation and diffuse disc bulge with hypertrophic facet arthropathy. No central canal stenosis. Mild right foraminal narrowing. Bulging disc and facet spurring result in rkix-vk-kawtjrwy left foraminal encroachment. L4-L5: Reduced intradiscal signal and mild posterior subluxation with a broad-based disc bulge and moderate facet arthropathy. Very small central disc protrusion visible. No central canal stenosis. Tdyh-bs-jzosrzwm bilateral foraminal narrowing. L5-S1: Well-hydrated disc with hypertrophic facet arthrosis. No central canal stenosis or foraminal narrowing. IMPRESSION: Yysr-qr-knkidfoz spondylosis at the L3-L4 and L4-L5 levels. No focal disc protrusion or central canal stenosis. Nlru-xd-efjeocif foraminal narrowing, more so at the L4-L5 level where there is a small central disc protrusion as well. Assessment & Plan Assessment & Plan (1) Lumbar spondylosis: Code(s): M47.816 - Spondylosis without myelopathy or radiculopathy, lumbar region Category: Medical (2) Discogenic low back pain: Code(s): M51.36 - Other intervertebral disc degeneration, lumbar region Category: Medical (3) Chronic right SI joint pain: Code(s): M53.3 - Sacrococcygeal disorders, not elsewhere classified; G89.29 - Other chronic pain Category: Medical (4) Lumbar degenerative disc disease: Code(s): M51.369 - Other intervertebral disc degeneration, lumbar region without mention of lumbar back pain or lower extremity pain Category: Medical (5) Depression: Code(s): F32.A - Depression, unspecified Category: Medical Plan For chronic low back pain, I plan a diagnostic bilateral L3-L4-L5 medial branch blocks with local anesthesia, fluoroscopya and oral Ativan to confirm axial low back pain and depending on results, we may proceed with nerve stimulation or radiofrequency ablation for arthritis management. Expectations, risks and benefits were reviewed. Patient is aware she will be contacted to schedule this procedure. We will proceed with oxycodone treatment while awaiting insurance approval for injections, and I will ensure this treatment aligns with the patient?s concerns regarding previous experiences. Patient requests injections with Dr. Wren for optimized care. As part of her depression management, we will consider antidepressant options for mood improvement as future adjunct therapy with duloxetine. Instructions on medication safety were given, and I recommended monitoring mood and functional outcomes at future visits. All questions and concerns have been answered and patient agreed with the plan. Follow up after injections and sooner as needed. Patient was informed and verbally consented to the use of an ambient scribe for clinic note documentation during this visit. Medications: Refilled oxycodone Partial Fill upon patient request. 5 mg PO Q8H 10 days PRN 30 tabs 0RF pain (scale score 7-10) G89.29 - Other chronic pain, M17.0 - Bilateral primary osteoarthritis of knee, M25.561 - Pain in right knee, M25.562 - Pain in left knee, M47.816 - Spondylosis without myelopathy or radiculopathy, lumbar region, M53.3 - Sacrococcygeal disorders, not elsewhere classified Patient Instructions: - Take prescribed oxycodone as directed, with considerations outlined for timing before procedures. - Wear the sacroiliac belt correctly at waist level and adjust when sitting or standing. - Monitor mood and functional ability, reporting any significant changes. - Follow-up appointments with Orthopedic and Psychiatrist should be kept to address related concerns. - Maintain awareness of medication storage and management. - Prepare for upcoming injections with pain medication restrictions as discussed. Coding Level of Care Code Est Pt Level 4 (56494) Complex EM visit Add On G2211 Diagnoses Lumbar spondylosis M47.816 Discogenic low back pain M51.36 Chronic right SI joint pain M53.3; G89.29 Lumbar degenerative disc disease M51.369 Depression F32.A
--- OUTSIDE RECORDS SUMMARY | 2024-09-25 09:09 | XMS_ITS | Encounter Summary ---
Author Organization [employer] Address [address] [facility] [address] [place] [address] Care Team Providers Care Embossing Clerk Name Role Phone Carmen Arauz NP Primary Care Provider [phone] Reason for Visit * Reason Onset Date Comments Med Refill 12/15/2023 Encounter Details Date Type Department Care Team ([facility] st Contact Info) Description 12/15/2023 Refill [facility] MED[facility]INE [address] [place], [place] [phone] Payton Mcintyre MD 230 [place] [address] Social History Tobacco Use Types Packs/Day Years [...] Description 10/19/2024 2:30 PM EDT Office Visit [facility] MED[facility] [address] [place] [address] Carmen Arauz NP 230 [place] [address] documented as of this encounter Visit Diagnoses Not on filedocumented in this encounter Additional Health Concerns Assessment Noted Time PHQ-9 Depression Total Score: 0 01/19/20 23 9:07 AM EDT documented as of this encounter Care Teams Embossing Clerk Relationship Specialty Start Date End Date Carmen Arauz NP 230 [place] [address] PCP - General Family Medicine 09/16/23 documented as of this encounter
--- OUTSIDE RECORDS SUMMARY | 2024-09-25 09:09 | XMS_ITS | Encounter Summary ---
Author Organization [employer] Address 75 [facility] 7t [place] [address] Care Team Providers Care Cook School Cafeteria Name Role Phone Carmen Arauz NP Primary Care Provider [phone] Encounter Details Date Type Department Care Team (Late Contact Info) Description 09/03/2022 Telephone [facility] MEDICINE [address] [place] [address] [phone] Judith Parker MD [address] [place] [address] [phone] Social History Tobacco Use Types Packs/Day Years [...] 2:30 PM EDT Office Visit [facility] [address] [place] [address] [phone] Carmen Arauz NP 230 [place] [address] documented as of this encounter Visit Diagnoses Not on filedocumented in this encounter Care Teams [employer] Cafeteria Relationship Specialty Start Date End Date Carmen Arauz NP [address] [place] [address] PCP - General Family Medicine 09/16/23 Alla Oliveira Corporate Safety Manager 07/11/23 09/16/23 documented as of this encounter
--- OUTSIDE RECORDS SUMMARY | 2024-09-25 09:09 | XMS_ITS | Encounter Summary ---
Author Organization [employer] Address [address] [facility] [address] 7t [place] [address] Care Team Providers Care Healthcare Economics Consultant Name Role Phone Carmen Arauz NP Primary Care Provider [phone] Reason for Visit * Reason Onset Date Comments Med Refill 04/15/2024 Encounter Details Date Type Department Care Team ([facility] st Contact Info) Description 04/15/2024 Refill [facility] MEDICINE 230 [place], [place] [phone] Name, MD Harvinder 230 [place] [address] Mild persistent asthma without complication Social History [...] 2:30 PM EDT Office Visit [facility] MEDICINE [address] [place] [address] Carmen Arauz NP 230 [place] [address] documented as of this encounter Visit Diagnoses Diagnosis Mild persistent asthma without complication documented in this encounter Additional Health Concerns Assessment Noted Time PHQ-9 Depression Total Score: 9 02/05/20 24 8:58 AM EDT documented as of this encounter Care Teams Healthcare Economics Consultant Relationship Specialty Start Date End Date Carmen Arauz NP 230 [place] [address] PCP - General Family Medicine 09/16/23 documented as of this encounter
--- OUTSIDE RECORDS SUMMARY | 2024-09-25 09:09 | XMS_ITS | Encounter Summary ---
Author Organization [employer] Address [address] [facility] [address] 7[address] [place] [address] Care Team Providers Care Tobacco Conditioner Name Role Phone Carmen Arauz NP Primary Care Provider [phone] Reason for Visit * Reason Onset Date Comments Med Refill 09/10/2024 Encounter Details Date Type Department Care Team ([facility] st Contact Info) Description 09/10/2024 Refill [facility] MED & PEDS [address] [place] [address] Carmen Arauz NP [address] [place] [address] Social History Tobacco Use Types Packs/Day Years [...] Office Visit [facility] MEDICINE 230 [place] [address] Carmen Arauz NP 230 [place] [address] documented as of this encounter Visit Diagnoses Not on filedocumented in this encounter Additional Health Concerns Assessment Noted Time PHQ-9 Depression Total Score: 9 02/05/20 24 8:58 AM EDT documented as of this encounter Care Teams Tobacco Conditioner Relationship Specialty Start Date End Date Carmen Arauz NP 230 [place] [address] PCP - General Family Medicine 09/16/23 documented as of this encounter
--- OUTSIDE RECORDS SUMMARY | 2024-09-25 09:09 | XMS_ITS | Encounter Summary ---
Author Organization [employer] Address [address] [facility] [address] 7t [place] [address] Care Team Providers Care Freight Clerk Name Role Phone Carmen Arauz NP Primary Care Provider [phone] Reason for Visit * Reason Onset Date Comments Med Refill 11/25/2023 Encounter Details Date Type Department Care Team (Late st Contact Info) Description 11/25/2023 Refill [facility] 230 [place] [address] Payton Mcintyre MD 230 [place] [address] Social History Tobacco Use Types Packs/Day Years [...] Description 10/19/2024 2:30 PM EDT Office Visit [facility] 230 [place] [address] Carmen Arauz NP 230 [place] [address] documented as of this encounter Visit Diagnoses Not on filedocumented in this encounter Additional Health Concerns Assessment Noted Time PHQ-9 Depression Total Score: 0 01/19/20 23 9:07 AM EDT documented as of this encounter Care Teams Freight Clerk Relationship Specialty Start Date End Date Carmen Arauz NP 230 [place] [address] PCP - General Family Medicine 09/16/23 documented as of this encounter
--- OUTSIDE RECORDS SUMMARY | 2024-09-25 09:09 | XMS_ITS | Encounter Summary ---
Author Organization [employer] Address [address] [facility] [address] 7[address] [place] [address] Care Team Providers Care Cable Armorer Operator Name Role Phone Carmen Arauz NP Primary Care Provider [phone] Reason for Visit * Reason Onset Date Comments Med Refill 06/22/2024 Encounter Details Date Type Department Care Team ([facility] st Contact Info) Description 06/22/2024 Refill [facility] MED[facility]INE 230 [place], [place] [phone] Carmen Arauz NP 230 [place], [place] [phone] Mild persistent asthma without complication Social History [...] TC from pt asking about referral for SOUND INSTALLATION WORKER. Nurse informed pt that a message has been sent to her provider, but the referral has not been placed yet. Pt verbalized understanding and denies anyfurther questions or concerns at this time. documented in this encounter Plan of Treatment Upcoming Encounters Date Type Department Care Team (Late st Contact Info) Description 10/19/2024 2:30 PM EDT Office Visit [facility] MEDICINE [address] [place] [address] Carmen Arauz NP 230 [place] [address] documented as of this encounter Visit Diagnoses Diagnosis Mild persistent asthma without complication documented in this encounter Additional Health Concerns Assessment Noted Time PHQ-9 Depression Total Score: 9 02/05/20 8:58 AM EDT documented as of this encounter Care Teams Cable Armorer Operator Relationship Specialty Start Date End Date Carmen Arauz NP [address] [place] [address] PCP - General Family Medicine 09/16/23 documented as of this encounter
--- OUTSIDE RECORDS SUMMARY | 2024-09-25 09:09 | XMS_ITS | Encounter Summary ---
Author Organization [employer] Address [address] [facility] [address] 7t [place] [address] Care Team Providers Care Pharmacy Clinical Specialist Name Role Phone Carmen Arauz NP Primary Care Provider [phone] Reason for Visit * Reason Onset Date Comments Med Refill 02/18/2024 Encounter Details Date Type Department Care Team ([facility] st Contact Info) Description 02/18/2024 Refill [facility] MEDICINE 230 [place], [place] [phone] Payton Mcintyre MD 230 [place] [address] Social History Tobacco Use Types Packs/Day Years [...] Description 10/19/2024 2:30 PM EDT Office Visit [facility] MEDICINE 230 [place] [address] Carmen Arauz NP 230 [place] [address] documented as of this encounter Visit Diagnoses Not on filedocumented in this encounter Additional Health Concerns Assessment Noted Time PHQ-9 Depression Total Score: 9 02/05/20 24 8:58 AM EDT documented as of this encounter Care Teams Pharmacy Clinical Specialist Relationship Specialty Start Date End Date Carmen Arauz NP 230 [place] [address] PCP - General Family Medicine 09/16/23 documented as of this encounter
--- OUTSIDE RECORDS SUMMARY | 2024-09-25 09:09 | XMS_ITS | Encounter Summary ---
Author Organization [employer] Address 75 [facility] 7t [place] [address] Care Team Providers Care Sea Kayaking Guide Name Role Phone Carmen Arauz NP Primary Care Provider [phone] Reason for Visit * Reason Onset Date Comments Med Refill 09/10/2024 Encounter Details Date Type Department Care Team (Late st Contact Info) Description 09/10/2024 Refill [facility] MEDICINE 230 [place], [place] [phone] Carmen Arauz NP [address] [place] [address] Hyperpigmentation of skin Social History Tobacco Use [...] PM EDT Office Visit [facility] MED[facility]INE [address] [place] [address] Carmen Arauz NP [address] [place] [address] documented as of this encounter Visit Diagnoses Diagnosis Hyperpigmentation of skin Other dyschromia documented in this encounter Additional Health Concerns Assessment Noted Time PHQ-9 Depression Total Score: 9 02/05/20 24 8:58 AM EDT documented as of this encounter Care Teams Sea Kayaking Guide Relationship Specialty Start Date End Date Carmen Arauz NP [address] [place] [address] PCP - General Family Medicine 09/16/23 documented as of this encounter
--- OUTSIDE RECORDS SUMMARY | 2024-09-25 09:09 | XMS_ITS | Encounter Summary ---
Author Organization [employer] Address [address] [facility] [address] 7t [place] [address] Care Team Providers Care Grocery Manager Name Role Phone Carmen Arauz NP Primary Care Provider [phone] Reason for Visit * Reason Onset Date Comments Med Refill 10/22/2023 Encounter Details Date Type Department Care Team (Late st Contact Info) Description 10/22/2023 Refill [facility] 230 [place] [address] Payton Mcintyre MD 230 [place] [address] Social History Tobacco Use Types Packs/Day Years [...] 2:30 PM EDT Office Visit [facility] 230 [place] [address] Carmen Arauz NP 230 [place] [address] documented as of this encounter Visit Diagnoses Not on filedocumented in this encounter Additional Health Concerns Assessment Noted Time PHQ-9 Depression Total Score: 0 01/19/20 23 9:07 AM EDT documented as of this encounter Care Teams Grocery Manager Relationship Specialty Start Date End Date Carmen Arauz NP 230 [place] [address] PCP - General Family Medicine 09/16/23 documented as of this encounter
--- OUTSIDE RECORDS SUMMARY | 2024-09-25 09:09 | XMS_ITS | Encounter Summary ---
Author Organization [employer] Address [address] [facility] [address] 7t [place] [address] Care Team Providers Care Violin Maker Hand Name Role Phone Carmen Arauz NP Primary Care Provider [phone] Reason for Visit * Reason Onset Date Comments Med Refill 09/10/2024 Encounter Details Date Type Department Care Team ([facility] st Contact Info) Description 09/10/2024 Refill [facility] MED & PEDS 505 [place] [address] Ashwini Hogue MD 505 [place] [address] Social History Tobacco Use Types Packs/Day Years [...] Description 10/19/2024 2:30 PM EDT Office Visit [facility] 230 [place] [address] Carmen Arauz NP 230 [place] [address] documented as of this encounter Visit Diagnoses Not on filedocumented in this encounter Additional Health Concerns Assessment Noted Time PHQ-9 Depression Total Score: 9 02/05/20 24 8:58 AM EDT documented as of this encounter Care Teams Violin Maker Hand Relationship Specialty Start Date End Date Carmen Arauz NP 230 [place] [address] PCP - General Family Medicine 09/16/23 documented as of this encounter
--- OUTSIDE RECORDS SUMMARY | 2024-09-25 09:09 | XMS_ITS | Clinical Summary ---
Author Organization [employer] Address 75 [facility] 7t [place] [address] Care Team Providers Care Watermelon Inspector Name Role Phone Carmen Arauz NP Primary Care Provider [phone] Allergies Active Allergy Reactions Criticality Noted Date [...] status of the Xolair. 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 ER precautions discussed. Pt sgrees with the plan. Assessment & Plan (09/16/2023 11:46 AM EDT): PRD 20 mg x 5d, counseled to discuss with passenger coach driver (appt next month) re adjusting Xolair dose vs changing to another med so that she doesn't end up using PRD that often. Patient is aware of side effects of nursing home use of steroids. DC Zyrtec and use desloratadine Continue Singulair FU with new PCP. Assessment & Plan (01/18/2023 2:16 PM EDT): Do not miss upcoming appointment with commercial credit specialist PT1 for visit will be provided Assessment & Plan (08/30/2022 9:35 AM EDT): Continue loratadine, singular, prescription for prednisone. Left message for PA specilist for status of the Xolair. 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 ER precautions discussed. Pt sgrees with the [...] Type Department Care Team Description 09/15/2024 Telephone [facility] MEDICINE [address] [place] [address] Carmen Arauz NP 09/15/2024 Refill [facility] [address] [place] [address] Carmen Arauz NP 09/15/2024 Refill [facility] MED & PEDS [address] [place] [address] Ashwini Hogue MD 09/14/2024 11:00 AM EDT Office Visit [facility] MEDICINE [address] [place] [address] Joyce Birmingham MD Lumbar radiculopathy, chronic (Primary Dx); Dietary counseling; Exercise counseling; Overweight 09/14/2024 Travel 09/14/2024 Telephone [facility] MED[facility] [address] [place] [address] Carmen Arauz NP Appointment Request 2024 Telephone [facility] MED[facility] [address] [place] [address] Emerita Nash DO Appointment Request 09/10/2024 Refill [facility] [address] [place] [address] Carmen Arauz NP 09/10/2024 Refill [facility] [address] [place] [address] Carmen Arauz NP Lumbar spondylosis; Lumbar radiculopathy; Mild persistent asthma without complication 09/10/2024 Refill [facility] MED[facility]INE [address] [place] [address] Carmen Arauz NP Hyperpigmentation of skin 09/10/2024 Refill [facility] [address] [place] [address] Ashwini Hogue MD 09/07/2024 Outside Procedure [facility] OPTOMETRY [address] [place] [address] Guillermo, Irene, OD Presbyopia (Primary Dx) 09/04/2024 9:15 AM EDT Office Visit [facility] OPT[facility] [address] [place] [address] GuillermoAndrewn, OD 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) 09/03/2024 Telephone [facility] MEDICINE [address] [place] [address] Carmen Arauz NP Mondays Chronic Pain Group 08/26/2024 Telephone [facility] MED[facility]INE [address] [place] [address] Carmen Arauz NP Saturday Chronic Pain Group 08/21/2024 Population Health Risk Score [facility] () Department [address] [place] [phone] Provider, Population Health Generic 08/07/2024 Patient Outreach [facility] [address] [place] [address] Carmen Arauz NP Pre-visit Planning ([facility] unable to reach [facility]) 08/06/2024 Refill [facility] [address] [place] [address] Carmen Arauz NP 08/05/2024 Telephone [facility] [address] [place] [address] Carmen Arauz NP Scheduling for pain group 07/23/2024 Telephone [facility] OPT[facility]ET[facility] [address] [place] [address] Irene Li, MANISHA 07/21/2024 Refill [facility] [address] [place] [address] Ashwini Hogue MD 07/07/2024 1:45 PM EST Office Visit [facility] MEDICINE [address] [place] [address] Carmen Arauz NP Hyperpigmentation of skin (Primary Dx); Lumbar radiculopathy, chronic 07/02/2024 Telephone [facility] MED[facility]INE [address] [place] [address] [phone] Tonya Canela MA TP request 07/01/2024 Telephone [facility] MED[facility]INE [address] [place] [address] [phone] Carmen Arauz NP Change provider from Last [...] Description 10/19/2024 2:30 PM EDT Office Visit [facility] MEDICINE [address] [place], [place] [phone] Carmen Arauz NP 230 [place], [place] [phone] Health Maintenance Due Date Last Done Comments [...] EDT Narrative 11/04/2023 11:24 AM EDT ? [facility] ? [address] ?[place] [address] ? Mammography Report ? Signed ? Patient: Tien,Franchesca ?MR#: [id number] ?? 88 ? : 1975 ?Acct:[id number] ? Age/Sex: 48 / F ?ADM Date: 10/07/ ? Loc: HO.MAMMO ? Attending Dr: Carmen B Graef OFFICE SERVICES MANAGER ? Ordering Physician: Regla,Carmen B OFFICE SERVICES MANAGER ?Results: 1Negati ?? ve ? Date of Service: 10/07/ ?Follow Up: 1 Year From Orig ?? inal Mammogram ? Procedure(s): MM tomosynthesis screening BI ?? Accession Number(s): [id number] ? cc: ReglaCarmen Linette OFFICE SERVICES MANAGER ? EXAMINATION: ?? MM SCREENING DIGITAL BREAST [...] 11/04/231119 ? DD/ 1040 ? TD/TT: ? Hot Bread Baker: ? Procedure Note Jayjay, Image - 11/04/2023 [facility] [address] [place] [address] Mammography Report Signed Patient: Franchesca ChauhanMR#: [id number] 88 : 1975Acct:[id number] Age/Sex: 48 / FADM Date: 10/08/23 Loc: HO.MAMMO Attending Dr: Carmen Arauz OFFICE SERVICES MANAGER Ordering Physician: Carmen Arauz NPResults: 1Negati ve Date of Service: 10/08/23Follow Up: 1 Year From Orig inal Mammogram Procedure(s): MM tomosynthesis screening BI Accession Number(s): [id number] cc: Carmen Arauz OFFICE SERVICES MANAGER EXAMINATION: MM SCREENING DIGITAL BREAST TOMOSYNTHESIS, BILATERAL [...] in OV> 11/04/23 1120 DD/ 1040 TD/TT: Hot Bread Baker: us Carmen Arauz NP IMG BI PROCEDURES Final Result * Hepatitis C Antibody Reflex (01/31/2023 8:50 AM EDT) Hepatitis C Antibody Nonreactive Nonreactive [facility] Comment:Antibodies to HCV no t detected; does not exclude early acuteHCV infection. 01/31/2023 8:50 AM EDT 01/31/2023 11:11 AM EDT us Judith Sibley MD LAB BLOOD ORDERABLES Final Result [facility] [address] [place] [phone] * HIV Ab/Ag ([place] DP) (01/31/2023 8:50 AM EDT) HIV AB/AG Nonreactive Nonreactive [facility] Comment:HIV-1 p24 Ag and/or HIV-1/HIV-2 Ab not detected.A test result that is nonreactive does not exclude thepossibility of exposure to or infection with HIV-1 and/orHIV-2. Nonreactive results in this assay for individualswith prior exposure to HIV-1 and/or HIV-2 may be due toantigen and antibody levels that are below the limit ofdetection of this assay.The [place] Auditor HIV Ag/Ab Combo assay result andsupplemental assay results should be interpreted inconjunction with the patient's clinical presentation,history and other laboratory results. If the results areinconsistent with clinical evidence, additional testing issuggested to confirm the result. 01/31/2023 8:50 AM EDT 01/31/2023 11:11 AM EDT us Judith Sibley MD LAB BLOOD ORDERABLES Final Result [facility] [address] [place] [address] [phone] * Lipid Panel, Standard (01/31/2023 8:50 AM EDT) Triglycerides 79 <150 mg/dL [facility] Comment:Desirable Triglyceri de: less than 150 mg/dLBorderline High Triglyceride 150-199 mg/dLHigh Triglyceride: 200-499 mg/dLVery High Triglyceride: greater than or equal to 5OO mg/dL Cholesterol 150 <200 mg/dL [facility] Comment:Desirable Cholestero l: less than 200 mg/dLBorderline High Cholesterol: 200-239 mg/dLHigh Cholesterol: greater than 239 mg/dL LDL Cholesterol Calculated 86 <100 mg/dL [facility] Comment:Desirable LDL: less than 100 mg/dLNear Optimal/Above Optimal LDL: 110- 129 mg/dLBorderline High LDL: 130-159 mg/dLHigh LDL: 160-189 mg/dLVery High LDL: greater than or equal to 190 mg/dL HDL Cholesterol 49 >40 mg/dL [facility] Comment:Desirable HDL: great er than 40 mg/dL Note: This HDL assay may give artificially low results in patients with liver disease. Blood Venous blood specimen / Unknown 01/31/2023 8:50 AM EDT 01/31/2023 11:11 AM EDT Judith Sibley MD LAB BLOOD ORDERABLES Final Result [facility] [address] [place] [address] [phone] * THINPREP TIS PAP AND HPV [...] with computer assisted technology. [facility] Supervisor Drapery Hanging : SEE COMMENT [facility] Comment: SXA, CT(ASCP) CT screening location: [address] ??[id number] HPV nRNA E6/E7 Not Detected Not Detected [facility] Comment: Methodology: Emergency Management Specialist-Mediated Amplification This assay detects E6/E7 viral messenger RNA (mRNA) from 14 high-risk HPV types (16,18,31,33,35,39,45,51,52,56,58,59,66,68). ? Cervical sources are required for HPV testing. If a vaginal source from a patient who has had a total hysterectomy with removal of cervix was ?? submitted, please contact the testing laboratory for alternative testing options. ?? For additional information, please refer to http://education.Fashfix/faq/FTZ144m4 (This link if provided for information/ educational [...] Most Recently Relevant to Health Maintenance Insurance [facility] ST[facility] Care Teams Watermelon Inspector Relationship Specialty Start Date End Date Carmen Arauz NP [address] [place] [phone] PCP - General Family Medicine 09/16/23
--- OUTSIDE RECORDS SUMMARY | 2024-09-25 09:09 | XMS_ITS | Encounter Summary ---
Author Organization [employer] Address [address] [facility] [address] [place] [address] Care Team Providers Care Parachute Taper Name Role Phone Carmen Arauz NP Primary Care Provider [phone] Reason for Visit * Reason Onset Date Comments Med Refill 11/25/2023 Encounter Details Date Type Department Care Team (Late st Contact Info) Description 11/25/2023 Refill [facility] MEDICINE [address] [place], [place] [phone] Judith Parker MD [address] [place], [place] [phone] Mild persistent asthma without complication Social History [...] Description 10/19/2024 2:30 PM EDT Office Visit [facility] MEDICINE [address] [place] [address] Carmen Arauz NP [address] [place] [address] documented as of this encounter Visit Diagnoses Diagnosis Mild persistent asthma without complication documented in this encounter Additional Health Concerns Assessment Noted Time PHQ-9 Depression Total Score: 0 01/19/20 23 9:07 AM EDT documented as of this encounter Care Teams Parachute Taper Relationship Specialty Start Date End Date Carmen Arauz NP [address] [place] [address] PCP - General Family Medicine 09/16/23 documented as of this encounter
--- OUTSIDE RECORDS SUMMARY | 2024-09-25 09:09 | XMS_ITS | Encounter Summary ---
Author Organization [employer] Address [address] [facility] [address] 7[address] [place] [address] Care Team Providers Care Wiring Inspector Name Role Phone Carmen Arauz NP Primary Care Provider [phone] Encounter Details Date Type Department Care Team ([facility] st Contact Info) Description 05/18/2024 Telephone [facility] [address] [place], [place] [phone] Carmen Arauz NP 230 [place] [address] Social History Tobacco Use Types Packs/Day Years [...] Description 10/19/2024 2:30 PM EDT Office Visit [facility] [address] [place] [address] Carmen Arauz NP 230 [place] [address] documented as of this encounter Visit Diagnoses Not on filedocumented in this encounter Additional Health Concerns Assessment Noted Time PHQ-9 Depression Total Score: 9 02/05/20 24 8:58 AM EDT documented as of this encounter Care Teams Wiring Inspector Relationship Specialty Start Date End Date Carmen Arauz NP 230 [place] [address] PCP - General Family Medicine 09/16/23 documented as of this encounter
--- OUTSIDE RECORDS SUMMARY | 2024-09-25 09:09 | XMS_ITS | Encounter Summary ---
Author Organization [employer] Address [address] [facility] [address] [place] [address] Care Team Providers Care Stain Maker Name Role Phone Carmen Arauz NP Primary Care Provider [phone] Reason for Visit * Reason Onset Date Comments Med Refill 04/15/2024 Encounter Details Date Type Department Care Team (Late st Contact Info) Description 04/15/2024 Refill [facility] 230 [place], [place] [phone] Carmen Arauz NP 230 [place], [place] [phone] Lumbar spondylosis; Lumbar radiculopathy Social History Tobacco [...] [facility] [address] [place] [address] Carmen Arauz NP 230 [place] [address] documented as of this encounter Visit Diagnoses Diagnosis Lumbar spondylosis Lumbosacral spondylosis without myelopathy Lumbar radiculopathy Thoracic or lumbosacral neuritis or radiculitis, unspecified documented in this encounter Additional Health Concerns Assessment Noted Time PHQ-9 Depression Total Score: 9 02/05/20 24 8:58 AM EDT documented as of this encounter Care Teams Stain Maker Relationship Specialty Start Date End Date Carmen Arauz NP 230 [place] [address] PCP - General Family Medicine 09/16/23 documented as of this encounter
--- OUTSIDE RECORDS SUMMARY | 2024-09-25 09:09 | XMS_ITS | Encounter Summary ---
Author Organization [employer] Address [address] 7[address] [place] [address] Care Team Providers Care Band Instrument Repairer Name Role Phone Carmen Arauz NP Primary Care Provider [phone] Reason for Visit * Reason Onset Date Comments Nurse Triage 05/26/2024 Encounter Details Date Type Department Care Team ([facility] st Contact Info) Description 05/26/2024 Telephone [facility] 230 [place], [place] [phone] Carmen Arauz, YANNA 230 [place], [place] [phone] Nurse Triage Social History Tobacco Use Types [...] Triage call Pt was last seen in [facility] 05/25/24. Pt has been doing everything as [...] call regarding prior message. Contact pt at [phone] * Telephone Encounter - Adalid Joe - [...] 10/19/2024 2:30 PM EDT Office Visit [facility] [address] [place] [address] Carmen Arauz NP 230 [place] [address] documented as of this encounter Visit Diagnoses Not on filedocumented in this encounter Additional Health Concerns Assessment Noted Time PHQ-9 Depression Total Score: 9 02/05/20 24 8:58 AM EDT documented as of this encounter Care Teams Band Instrument Repairer Relationship Specialty Start Date End Date Carmen Arauz NP 230 [place] [address] PCP - General Family Medicine 09/16/23 documented as of this encounter
--- OUTSIDE RECORDS SUMMARY | 2024-09-25 09:09 | XMS_ITS | Encounter Summary ---
Author Organization [employer] Address [address] 7[address] [place] [address] Care Team Providers Care Personal Consultant Name Role Phone Carmen Arauz NP Primary Care Provider Reason for Visit * Reason Onset Date Comments Nurse Triage 05/15/2024 Encounter Details Date Type Department Care Team ([facility] st Contact Info) Description 05/15/2024 Telephone [facility] 230 [place], [place] [phone] Carmen Arauz, YANNA 230 [place], [place] [phone] Nurse Triage Social History Tobacco Use Types [...] to follow with patient. Patient reaced at [phone]. Protocol Used: Tinnitus (Adult) Protocol-Based Disposition: See [...] caller accepted this outcome. Contact pt at [phone] documented in this encounter Plan of Treatment Upcoming Encounters Date Type Department Care Team (Late st Contact Info) Description 10/19/2024 2:30 PM EDT Office Visit [facility] MED[facility]INE [address] [place] [address] Carmen Arauz NP 230 [place] [address] documented as of this encounter Visit Diagnoses Not on filedocumented in this encounter Additional Health Concerns Assessment Noted Time PHQ-9 Depression Total Score: 9 02/05/20 8:58 AM EDT documented as of this encounter Care Teams Personal Consultant Relationship Specialty Start Date End Date Carmen Arauz NP 230 [place] [address] PCP - General Family Medicine 09/16/23 documented as of this encounter
--- OUTSIDE RECORDS SUMMARY | 2024-09-25 09:09 | XMS_ITS | Encounter Summary ---
Author Organization [employer] Address [address] 7[address] [place] [address] Care Team Providers Care Resident Buyer Name Role Phone Carmen Arauz NP Primary Care Provider [phone] Reason for Visit * Reason Onset Date Comments Med Refill 04/15/2024 Encounter Details Date Type Department Care Team ([facility] st Contact Info) Description 04/15/2024 Refill [facility] 230 [place] [address] Judith Parker MD 230 [place] [address] Social History Tobacco Use Types Packs/Day Years [...] 2:30 PM EDT Office Visit [facility] MEDICINE [address] [place] [address] Carmen Arauz NP 230 [place] [address] documented as of this encounter Visit Diagnoses Not on filedocumented in this encounter Additional Health Concerns Assessment Noted Time PHQ-9 Depression Total Score: 9 02/05/20 24 8:58 AM EDT documented as of this encounter Care Teams Resident Buyer Relationship Specialty Start Date End Date Carmen Arauz NP 230 [place] [address] PCP - General Family Medicine 09/16/23 documented as of this encounter
--- OUTSIDE RECORDS SUMMARY | 2024-09-25 09:09 | XMS_ITS | Encounter Summary ---
Author Organization [employer] Address [address] 7[address] [place] [address] Care Team Providers Care Microbiological Analyst Name Role Phone Carmen Arauz NP Primary Care Provider [phone] Reason for Visit * Reason Onset Date Comments Appointment Request 2024 Encounter Details Date Type Department Care Team ([facility] st Contact Info) Description 2024 Telephone [facility] MEDICINE 230 [place], [place] [phone] Emerita Nash DO 230 [place], [place] [phone] Appointment Request Social History Tobacco Use Types [...] requesting a to r/s appt from 08/14/24. Rn Clinical Coordinator advised pt that there is no appt available and told pt that she would be put on a recall for whenever there is a opening. Contact pt at [phone] documented in this encounter Plan of Treatment Upcoming Encounters Date Type Department Care Team (Late st Contact Info) Description 10/19/2024 2:30 PM EDT Office Visit [facility] MEDICINE 230 [place] [address] Carmen Arauz NP 230 [place] [address] documented as of this encounter Visit Diagnoses Not on filedocumented in this encounter Additional Health Concerns Assessment Noted Time PHQ-9 Depression Total Score: 9 02/05/20 24 8:58 AM EDT documented as of this encounter Care Teams Microbiological Analyst Relationship Specialty Start Date End Date aCrmen Arauz NP 230 [place] [address] PCP - General Family Medicine 09/16/23 documented as of this encounter
--- OUTSIDE RECORDS SUMMARY | 2024-09-25 09:09 | XMS_ITS | Encounter Summary ---
Author Organization [employer] Address [address] [place] [address] Care Team Providers Care Lock Up Worker Name Role Phone Carmen Arauz NP Primary Care Provider Reason for Visit * Reason Onset Date Comments Med Refill 05/17/2023 Encounter Details Date Type Department Care Team (Late st Contact Info) Description 05/17/2023 Refill [facility] 230 [place], [place] [phone] Emerita Nash DO 230 [place], [place] [phone] Social History Tobacco Use Types Packs/Day Years [...] Visit [facility] [address] [place] [address] Carmen Arauz NP 230 [place] [address] documented as of this encounter Visit Diagnoses Not on filedocumented in this encounter Additional Health Concerns Assessment Noted Time PHQ-9 Depression Total Score: 0 01/19/20 23 9:07 AM EDT documented as of this encounter Care Teams Lock Up Worker Relationship Specialty Start Date End Date Carmen Arauz NP 230 [place] [address] PCP - General Family Medicine 09/16/23 Alla Oliveira Business Reporting Developer 07/11/23 09/16/23 documented as of this encounter
--- OUTSIDE RECORDS SUMMARY | 2024-09-25 09:09 | XMS_ITS | Clinical Summary ---
Author Organization [address] [facility] Address [address] [place] [phone] Phone Care Team Providers Care Painter Ordnance Name Role Phone Physician, Pcp Unknown Primary [...] topic Insurance MEDICAID - [place] Care Teams Painter Ordnance Relationship Specialty Start Date End Date Physician, Pcp Unknown PCP - General 06/01/24
--- OUTSIDE RECORDS SUMMARY | 2024-09-25 09:09 | XMS_ITS | Encounter Summary ---
Author Organization [employer] Address [address] [facility] [address] 7t [place] [address] Care Team Providers Care Contract Admin Name Role Phone Carmen Arauz NP Primary Care Provider [phone] Encounter Details Date Type Department Care Team ([facility] st Contact Info) Description 05/25/2024 Telephone [facility] MED[facility]INE 230 [place], [place] [phone] Carmen Arauz NP [address] [place] [address] Social History Tobacco Use Types Packs/Day Years [...] Description 10/19/2024 2:30 PM EDT Office Visit [facility] MED[facility]INE 230 [place] [address] Carmen Arauz NP [address] [place] [address] documented as of this encounter Visit Diagnoses Not on filedocumented in this encounter Additional Health Concerns Assessment Noted Time PHQ-9 Depression Total Score: 9 02/05/20 24 8:58 AM EDT documented as of this encounter Care Teams Contract Admin Relationship Specialty Start Date End Date Carmen Arauz NP 230 [place] [address] PCP - General Family Medicine 09/16/23 documented as of this encounter
--- OUTSIDE RECORDS SUMMARY | 2024-09-25 09:09 | XMS_ITS | Encounter Summary ---
Author Organization [employer] Address [address] [facility] 7t [place] [address] Care Team Providers Care Supervisor Orchard Name Role Phone Carmen Arauz NP Primary Care Provider [phone] Reason for Visit * Reason Comments Med Refill Encounter Details Date Type Department Care Team ([facility] st Contact Info) Description 05/18/2024 Refill [facility] MED[facility]INE 230 [place], [place] [phone] Judith Parker MD 230 [place], [place] [phone] Mild persistent asthma without complication Social History [...] Description 10/19/2024 2:30 PM EDT Office Visit [facility] MEDICINE [address] [place] [address] Carmen Arauz NP 230 [place] [address] documented as of this encounter Visit Diagnoses Diagnosis Mild persistent asthma without complication documented in this encounter Additional Health Concerns Assessment Noted Time PHQ-9 Depression Total Score: 9 02/05/20 24 8:58 AM EDT documented as of this encounter Care Teams Supervisor Orchard Relationship Specialty Start Date End Date Carmen Arauz NP 230 [place] [address] PCP - General Family Medicine 09/16/23 documented as of this encounter
--- OUTSIDE RECORDS SUMMARY | 2024-09-25 09:09 | XMS_ITS | Encounter Summary ---
Author Organization [employer] Address [address] [facility] [facility] [facility] [address] [place] [address] Care Team Providers Care Medical Staff Physician Name Role Phone Carmen Arauz NP Primary Care Provider [phone] Reason for Visit * Reason Onset Date Comments Med Refill 05/15/2024 Encounter Details Date Type Department Care Team ([facility] st Contact Info) Description 05/15/2024 Refill [facility] MEDICINE 230 [place], [place] [phone] Judith Parker MD 230 [place], [place] [phone] Mild intermittent asthma, unspecified whether complicated Social [...] Visit [facility] MEDICINE [address] [place] [address] Carmen Arauz NP 230 [place] [address] documented as of this encounter Visit Diagnoses Diagnosis Mild intermittent asthma, unspecified whether complicated documented in this encounter Additional Health Concerns Assessment Noted Time PHQ-9 Depression Total Score: 9 02/05/20 24 8:58 AM EDT documented as of this encounter Care Teams Medical Staff Physician Relationship Specialty Start Date End Date Carmen Arauz NP 230 [place] [address] PCP - General Family Medicine 09/16/23 documented as of this encounter
--- OUTSIDE RECORDS SUMMARY | 2024-09-25 09:09 | XMS_ITS | Encounter Summary ---
Author Organization [employer] Address [address] [facility] [address] 7t [place] [address] Care Team Providers Care Mender Knit Goods Name Role Phone Carmen Arauz NP Primary Care Provider [phone] Reason for Visit * Reason Onset Date Comments Med Refill 06/22/2024 Encounter Details Date Type Department Care Team ([facility] st Contact Info) Description 06/22/2024 Refill [facility] 230 [place] [address] Ashwini Hogue MD [address] [place] [address] Social History Tobacco Use Types Packs/Day Years [...] Description 10/19/2024 2:30 PM EDT Office Visit [facility] 230 [place] [address] Carmen Arauz NP 230 [place] [address] documented as of this encounter Visit Diagnoses Not on filedocumented in this encounter Additional Health Concerns Assessment Noted Time PHQ-9 Depression Total Score: 9 02/05/20 24 8:58 AM EDT documented as of this encounter Care Teams Mender Knit Goods Relationship Specialty Start Date End Date Carmen Arauz NP 230 [place] [address] PCP - General Family Medicine 09/16/23 documented as of this encounter
--- OUTSIDE RECORDS SUMMARY | 2024-09-25 09:10 | XMS_ITS | Encounter Summary ---
Author Organization [employer] Address [address] [facility] 7t [place] [address] Care Team Providers Care Senior Procurement Specialist Name Role Phone Carmen Arauz NP Primary Care Provider [phone] Reason for Visit * Reason Onset Date Comments returning phone call 08/13/2022 Encounter Details Date Type Department Care Team ([facility] st Contact Info) Description 08/13/2022 Telephone [facility] MEDICINE 230 [place], [place] [phone] Judith Parker MD 230 [place] [address] returning phone call Social History Tobacco Use [...] Task was 08/13/2022 Please contact pt at [phone] documented in this encounter Plan of Treatment Upcoming Encounters Date Type Department Care Team (Late st Contact Info) Description 10/19/2024 2:30 PM EDT Office Visit [facility] MEDICINE [address] [place] [address] Carmen Arauz NP [address] [place] [address] documented as of this encounter Visit Diagnoses Not on filedocumented in this encounter Care Teams Senior Procurement Specialist Relationship Specialty Start Date End Date Carmen Arauz NP [address] [place] [address] PCP - General Family Medicine 09/16/23 Alla Oliveira Data Collection Specialist 07/11/23 09/16/23 documented as of this encounter
--- OUTSIDE RECORDS SUMMARY | 2024-09-25 09:10 | XMS_ITS | Encounter Summary ---
Author Organization [employer] Address [address] [facility] [address] [facility] [address] 7[address] [place] [address] Care Team Providers Care Tool Mechanic Name Role Phone Carmen Arazu NP Primary Care Provider [phone] Reason for Visit * Reason Onset Date Comments Nurse Triage 06/27/2023 TelephoneCall 06/27/2023 Encounter Details Date Type Department Care Team ([facility] st Contact Info) Description 06/27/2023 Telephone [facility] 230 [place] [address] Judith Parker MD 230 [place], [place] [phone] Nurse Triage; TelephoneCall Social History Tobacco Use [...] pt is having. Please contact pt at [phone] * Telephone Encounter - Petrona Felix RN - 06/27/2023 4:33 PM EST Called pt. She states that she is looking for an appt. With PCP. Pt. Is seeing pain management and they want to start doing back injections. Pt. States I used to get back injections when I lived in [place] and the injections do not work [...] 10/19/2024 2:30 PM EDT Office Visit [facility] MEDICINE 230 [place] [address] Carmen Arauz NP 230 [place] [address] documented as of this encounter Visit Diagnoses Not on filedocumented in this encounter Additional Health Concerns Assessment Noted Time PHQ-9 Depression Total Score: 0 01/19/20 23 9:07 AM EDT documented as of this encounter Care Teams Tool Mechanic Relationship Specialty Start Date End Date Carmen Arauz NP 230 [place] [address] PCP - General Family Medicine 09/16/23 Alla Oliveira Religious Education Director 07/11/23 09/16/23 documented as of this encounter
--- OUTSIDE RECORDS SUMMARY | 2024-09-25 09:10 | XMS_ITS | Encounter Summary ---
Author Organization [employer] Address [address] [facility] 7t [place] [address] Care Team Providers Care Graphic Design Teacher Name Role Phone Carmen Arauz NP Primary Care Provider [phone] Encounter Details Date Type Department Care Team ([facility] Contact Info) Description 08/10/2022 Abstract [facility] MEDICINE [address] [place] [phone] Judith Parker MD [address] [place] [phone] Social History Tobacco Use Types Packs/Day Years [...] Upcoming Encounters Date Type Department Care Team ([facility] Contact Info) Description 10/19/2024 2:30 PM EDT Office Visit [facility] [address] [place] [phone] Carmen Arauz NP 230 [place], [place] [phone] documented as of this encounter Visit Diagnoses Not on filedocumented in this encounter Care Teams Graphic Design Teacher Relationship Specialty Start Date End Date Carmen Arauz NP [address] [place] [address] PCP - General Family Medicine 09/16/23 Alla Oliveira [employer] Spacelift 07/11/23 09/16/23 documented as of this encounter
--- OUTSIDE RECORDS SUMMARY | 2024-09-25 09:10 | XMS_ITS | Encounter Summary ---
Author Organization [employer] Address [address] [facility] [address] 7[address] [place] [address] Care Team Providers Care Shop Director Name Role Phone Carmen Arauz NP Primary Care Provider [phone] Reason for Visit * Reason Onset Date Comments triage 08/16/2022 Encounter Details Date Type Department Care Team ([facility] st Contact Info) Description 08/16/2022 Telephone [facility] MEDICINE [address] [place], [place] [phone] Judith Parker MD 230 [place], [place] [phone] triage Social History Tobacco Use Types Packs/Day [...] 10/19/2024 2:30 PM EDT Office Visit [facility] MEDICINE [address] [place] [address] Carmen Arauz NP 230 [place] [address] documented as of this encounter Visit Diagnoses Not on filedocumented in this encounter Care Teams Shop Director Relationship Specialty Start Date End Date Carmen Arauz NP 230 [place] [address] PCP - General Family Medicine 09/16/23 Alla Oliveira [employer] 07/11/23 09/16/23 documented as of this encounter
== END 2024-09-25 09:18 | disposition home or self-care (01) ==
LOC: HO.PMC 08:46
PROVIDERS: PCP Nurse Practitioner Family; Visit Provider Nurse Practitioner Family
DX: M47.816 Spondylosis without myelopathy or radiculopathy, lumbar region (principal); M51.369 Other intervertebral disc degeneration, lumbar region without mention of lumbar back pain or lower extremity pain; M53.3 Sacrococcygeal disorders, not elsewhere classified; G89.29 Other chronic pain; F32.A Depression, unspecified
CPT/HCPCS: 99214

== ENCOUNTER → 2024-09-25 08:46 | Outpatient (BNVA) | payer MEDICAID, SELFPAY | PROVIDERS: PCP Nurse Practitioner Family; Visit Provider Nurse Practitioner Family | DX: M47.816 Spondylosis without myelopathy or radiculopathy, lumbar region (principal); M51.369 Other intervertebral disc degeneration, lumbar region without mention of lumbar back pain or lower extremity pain; M53.3 Sacrococcygeal disorders, not elsewhere classified; F32.A Depression, unspecified; G89.29 Other chronic pain; M17.0 Bilateral primary osteoarthritis of knee | CPT/HCPCS: 99212 ==

== ENCOUNTER 2024-09-30 15:04 | Outpatient (REF) | payer MEDICAID, SELFPAY ==
--- OUTSIDE RECORDS SUMMARY | 2024-09-30 18:18 | XMS_ITS | Encounter Summary ---
Author Organization [employer] Address [address] 7[address] [place] [address] Care Team Providers Care Licensed Midwife Name Role Phone Carmen Arauz NP Primary Care Provider [phone] Reason for Visit * Reason Onset Date Comments Med Refill 12/15/2023 Encounter Details Date Type Department Care Team ([facility] st Contact Info) Description 12/15/2023 Refill [facility] MEDICINE [address] [place], [place] [phone] Payton Mcintyre MD [address] [place] [address] Social History Tobacco Use Types Packs/Day Years [...] Description 10/19/2024 2:30 PM EDT Office Visit [facility] MEDICINE [address] [place] [address] Carmen Arauz NP [address] [place] [address] documented as of this encounter Visit Diagnoses Not on filedocumented in this encounter Additional Health Concerns Assessment Noted Time PHQ-9 Depression Total Score: 0 01/19/20 23 9:07 AM EDT documented as of this encounter Care Teams Licensed Midwife Relationship Specialty Start Date End Date Carmen rAauz NP [address] [place] [address] PCP - General Family Medicine 09/16/23 documented as of this encounter
--- OUTSIDE RECORDS SUMMARY | 2024-09-30 18:19 | XMS_ITS | Encounter Summary ---
Author Organization [employer] Address [address] 7[address] [place] [address] Care Team Providers Care Cuffer Name Role Phone Carmen Arauz NP Primary Care Provider [phone] Reason for Visit * Reason Onset Date Comments Med Refill 09/10/2024 Encounter Details Date Type Department Care Team ([facility] st Contact Info) Description 09/10/2024 Refill [facility] MED & PEDS [address] [place] [address] Ashwini Hogue MD [address] [place] [address] Social History Tobacco Use Types Packs/Day Years [...] Office Visit [facility] MEDICINE [address] [place] [address] Carmen Arauz NP [address] [place] [address] documented as of this encounter Visit Diagnoses Not on filedocumented in this encounter Additional Health Concerns Assessment Noted Time PHQ-9 Depression Total Score: 9 02/05/20 24 8:58 AM EDT documented as of this encounter Care Teams Cuffer Relationship Specialty Start Date End Date Carmen Arauz NP [address] [place] [address] PCP - General Family Medicine 09/16/23 documented as of this encounter
--- OUTSIDE RECORDS SUMMARY | 2024-09-30 18:19 | XMS_ITS | Encounter Summary ---
Author Organization [employer] Address [address] [facility] [facility] [address] [facility] [address] [place] [address] Care Team Providers Care Hall Tender Name Role Phone Carmen Arauz NP Primary Care Provider [phone] Reason for Visit * Reason Onset Date Comments Med Refill 04/15/2024 Encounter Details Date Type Department Care Team ([facility] st Contact Info) Description 04/15/2024 Refill [facility] MEDICINE [address] [place], [place] [phone] Name, MD Harvinder 230 [place] [address] Mild persistent asthma without complication Social History [...] Description 10/19/2024 2:30 PM EDT Office Visit [facility] MEDICINE [address] [place] [address] Carmen Arauz NP 230 [place] [address] documented as of this encounter Visit Diagnoses Diagnosis Mild persistent asthma without complication documented in this encounter Additional Health Concerns Assessment Noted Time PHQ-9 Depression Total Score: 9 02/05/20 24 8:58 AM EDT documented as of this encounter Care Teams Hall Tender Relationship Specialty Start Date End Date Carmen Arauz NP [address] [place] [address] PCP - General Family Medicine 09/16/23 documented as of this encounter
--- OUTSIDE RECORDS SUMMARY | 2024-09-30 18:19 | XMS_ITS | Encounter Summary ---
Author Organization [employer] Address [address] [facility] [address] [place] [address] Care Team Providers Care Pipe Stripper Name Role Phone Carmen Arauz NP Primary Care Provider [phone] Reason for Visit * Reason Onset Date Comments Nurse Triage 06/27/2023 TelephoneCall 06/27/2023 Encounter Details Date Type Department Care Team ([facility] st Contact Info) Description 06/27/2023 Telephone [facility] MEDICINE [address] [place] [address] Judith Parker MD [address] [place], [place] [phone] Nurse Triage; TelephoneCall Social History Tobacco Use [...] pt is having. Please contact pt at [phone] * Telephone Encounter - Petrona Felix RN - 06/27/2023 4:33 PM EST Called pt. She states that she is looking for an appt. With PCP. Pt. Is seeing pain management and they want to start doing back injections. Pt. States I used to get back injections when I lived in [place] and the injections do not work . [...] Visit [facility] MEDICINE [address] [place] [address] Carmen Arauz NP [address] [place] [address] documented as of this encounter Visit Diagnoses Not on filedocumented in this encounter Additional Health Concerns Assessment Noted Time PHQ-9 Depression Total Score: 0 01/19/20 23 9:07 AM EDT documented as of this encounter Care Teams Pipe Stripper Relationship Specialty Start Date End Date Carmen Arauz NP [address] [place] [address] PCP - General Family Medicine 09/16/23 Alla Oliveira Study Manager 07/11/23 09/16/23 documented as of this encounter
--- OUTSIDE RECORDS SUMMARY | 2024-09-30 18:19 | XMS_ITS | Encounter Summary ---
Author Organization [employer] Address [address] [facility] [address] [address] [place] [address] Care Team Providers Care Accounts Payable Professional Name Role Phone Carmen Arauz NP Primary Care Provider Reason for Visit * Reason Onset Date Comments Nurse Triage 05/15/2024 Encounter Details Date Type Department Care Team ([facility] st Contact Info) Description 05/15/2024 Telephone [facility] MEDICINE [address] [place], [place] [phone] Carmen Arauz, YANNA [address] [place], [place] [phone] Nurse Triage Social History Tobacco Use Types [...] to follow with patient. Patient reaced at [phone]. Protocol Used: Tinnitus (Adult) Protocol-Based Disposition: See [...] caller accepted this outcome. Contact pt at [phone] documented in this encounter Plan of Treatment Upcoming Encounters Date Type Department Care Team (Late st Contact Info) Description 10/19/2024 2:30 PM EDT Office Visit [facility] MEDICINE [address] [place] [address] Carmen Arauz NP [address] [place] [address] documented as of this encounter Visit Diagnoses Not on filedocumented in this encounter Additional Health Concerns Assessment Noted Time PHQ-9 Depression Total Score: 9 02/05/20 8:58 AM EDT documented as of this encounter Care Teams Accounts Payable Professional Relationship Specialty Start Date End Date Carmen Arauz NP [address] [place] [address] PCP - General Family Medicine 09/16/23 documented as of this encounter
--- OUTSIDE RECORDS SUMMARY | 2024-09-30 18:19 | XMS_ITS | Encounter Summary ---
Author Organization [employer] Address [address] [place] [address] Care Team Providers Care Carton Packaging Machine Operator Name Role Phone Carmen Arauz NP Primary Care Provider [phone] Reason for Visit * Reason Comments Med Refill Encounter Details Date Type Department Care Team ([facility] st Contact Info) Description 05/18/2024 Refill [facility] MEDICINE 230 [place], [place] [phone] Judith Parker MD 230 [place], [place] [phone] Mild persistent asthma without complication Social History [...] Description 10/19/2024 2:30 PM EDT Office Visit [facility] MEDICINE [address] [place] [address] Carmen Arauz NP [address] [place] [address] documented as of this encounter Visit Diagnoses Diagnosis Mild persistent asthma without complication documented in this encounter Additional Health Concerns Assessment Noted Time PHQ-9 Depression Total Score: 9 02/05/20 24 8:58 AM EDT documented as of this encounter Care Teams Carton Packaging Machine Operator Relationship Specialty Start Date End Date Carmen Arauz NP [address] [place] [address] PCP - General Family Medicine 09/16/23 documented as of this encounter
--- OUTSIDE RECORDS SUMMARY | 2024-09-30 18:19 | XMS_ITS | Encounter Summary ---
Author Organization [employer] Address [address] [facility] [address] 7[address] [place] [address] Care Team Providers Care Industrial Diamond Polisher Name Role Phone Carmen Arauz NP Primary Care Provider [phone] Reason for Visit * Reason Onset Date Comments Med Refill 06/22/2024 Encounter Details Date Type Department Care Team ([facility] st Contact Info) Description 06/22/2024 Refill [facility] [address] [place] [address] Ashwini Hogue MD [address] [place] [address] Social History Tobacco Use Types Packs/Day Years [...] EDT Office Visit [facility] [address] [place] [address] Carmen Arauz NP 230 [place] [address] documented as of this encounter Visit Diagnoses Not on filedocumented in this encounter Additional Health Concerns Assessment Noted Time PHQ-9 Depression Total Score: 9 02/05/20 24 8:58 AM EDT documented as of this encounter Care Teams Industrial Diamond Polisher Relationship Specialty Start Date End Date Carmen Arauz NP 230 [place] [address] PCP - General Family Medicine 09/16/23 documented as of this encounter
--- OUTSIDE RECORDS SUMMARY | 2024-09-30 18:19 | XMS_ITS | Encounter Summary ---
Author Organization [employer] Address [address] 7t [place] [address] Care Team Providers Care Player Services Representative Name Role Phone Carmen Arauz NP Primary Care Provider [phone] Reason for Visit * Reason Onset Date Comments Med Refill 02/18/2024 Encounter Details Date Type Department Care Team ([facility] st Contact Info) Description 02/18/2024 Refill [facility] 230 [place], [place] [phone] Payton Mcintyre MD 230 [place] [address] Social History Tobacco Use Types Packs/Day Years [...] Description 10/19/2024 2:30 PM EDT Office Visit [facility] [address] [place] [address] Carmen Arauz NP 230 [place] [address] documented as of this encounter Visit Diagnoses Not on filedocumented in this encounter Additional Health Concerns Assessment Noted Time PHQ-9 Depression Total Score: 9 02/05/20 24 8:58 AM EDT documented as of this encounter Care Teams Player Services Representative Relationship Specialty Start Date End Date Carmen Arauz NP 230 [place] [address] PCP - General Family Medicine 09/16/23 documented as of this encounter
--- OUTSIDE RECORDS SUMMARY | 2024-09-30 18:19 | XMS_ITS | Encounter Summary ---
Author Organization [employer] Address [address] [facility] [address] 7t [place] [address] Care Team Providers Care Knitter Wire Mesh Name Role Phone Carmen Arauz NP Primary Care Provider [phone] Reason for Visit * Reason Onset Date Comments Med Refill 09/10/2024 Encounter Details Date Type Department Care Team ([facility] st Contact Info) Description 09/10/2024 Refill [facility] [address] [place] [address] Carmen Arauz NP [address] [place] [address] Social History Tobacco Use Types Packs/Day Years [...] Description 10/19/2024 2:30 PM EDT Office Visit [facility] 230 [place] [address] Carmen Arauz NP 230 [place] [address] documented as of this encounter Visit Diagnoses Not on filedocumented in this encounter Additional Health Concerns Assessment Noted Time PHQ-9 Depression Total Score: 9 02/05/20 24 8:58 AM EDT documented as of this encounter Care Teams Knitter Wire Mesh Relationship Specialty Start Date End Date Carmen Arauz NP 230 [place] [address] PCP - General Family Medicine 09/16/23 documented as of this encounter
--- OUTSIDE RECORDS SUMMARY | 2024-09-30 18:19 | XMS_ITS | Encounter Summary ---
Author Organization [employer] Address [address] [facility] 7t [place] [address] Care Team Providers Care Transcription Manager Name Role Phone Carmen Arauz NP Primary Care Provider Reason for Visit * Reason Onset Date Comments returning phone call 08/13/2022 Encounter Details Date Type Department Care Team ([facility] st Contact Info) Description 08/13/2022 Telephone [facility] 230 [place], [place] [phone] Judith Parker MD 230 [place] [address] returning phone call Social History Tobacco Use [...] Task was 08/13/2022 Please contact pt at [phone] documented in this encounter Plan of Treatment Upcoming Encounters Date Type Department Care Team (Late st Contact Info) Description 10/19/2024 2:30 PM EDT Office Visit [facility] [address] [place] [address] Carmen Arauz NP 230 [place] [address] documented as of this encounter Visit Diagnoses Not on filedocumented in this encounter Care Teams Transcription Manager Relationship Specialty Start Date End Date Carmen Arauz NP 230 [place] [address] PCP - General Family Medicine 09/16/23 Alla Oliveira Photographic Supervisor 07/11/23 09/16/23 documented as of this encounter
--- OUTSIDE RECORDS SUMMARY | 2024-09-30 18:19 | XMS_ITS | Encounter Summary ---
Author Organization [employer] Address [address] [facility] 7t [place] [address] Care Team Providers Care Engineering And Development Director Name Role Phone Carmen Arauz NP Primary Care Provider [phone] Reason for Visit * Reason Onset Date Comments Med Refill 09/10/2024 Encounter Details Date Type Department Care Team (Late st Contact Info) Description 09/10/2024 Refill [facility] 230 [place], [place] [phone] Carmen Arauz NP 230 [place] [address] Hyperpigmentation of skin Social History Tobacco Use [...] Office Visit [facility] [address] [place] [address] Carmen Arauz NP 230 [place] [address] documented as of this encounter Visit Diagnoses Diagnosis Hyperpigmentation of skin Other dyschromia documented in this encounter Additional Health Concerns Assessment Noted Time PHQ-9 Depression Total Score: 9 02/05/20 24 8:58 AM EDT documented as of this encounter Care Teams Engineering And Development Director Relationship Specialty Start Date End Date Carmen Arauz NP 230 [place] [address] PCP - General Family Medicine 09/16/23 documented as of this encounter
--- OUTSIDE RECORDS SUMMARY | 2024-09-30 18:19 | XMS_ITS | Encounter Summary ---
Author Organization [employer] Address [address] [facility] [address] 7t [place] [address] Care Team Providers Care Sheet Metal Erector Name Role Phone Carmen Arauz NP Primary Care Provider [phone] Encounter Details Date Type Department Care Team ([facility] st Contact Info) Description 05/18/2024 Telephone [facility] 230 [place], [place] [phone] Carmen Arauz NP 230 [place] [address] Social History Tobacco Use Types Packs/Day Years [...] 10/19/2024 2:30 PM EDT Office Visit [facility] 230 [place] [address] Carmen Arauz NP 230 [place] [address] documented as of this encounter Visit Diagnoses Not on filedocumented in this encounter Additional Health Concerns Assessment Noted Time PHQ-9 Depression Total Score: 9 02/05/20 24 8:58 AM EDT documented as of this encounter Care Teams Sheet Metal Erector Relationship Specialty Start Date End Date Carmen Arauz NP [address] [place] [address] PCP - General Family Medicine 09/16/23 documented as of this encounter
--- OUTSIDE RECORDS SUMMARY | 2024-09-30 18:19 | XMS_ITS | Encounter Summary ---
Author Organization [employer] Address [address] [facility] 7t [place] [address] Care Team Providers Care Registered Midwife Name Role Phone Carmen Arauz NP Primary Care Provider [phone] Encounter Details Date Type Department Care Team ([facility] Contact Info) Description 08/10/2022 Abstract [facility] [address] [place] [address] [phone] Judith Parker MD [address] [place] [address] [phone] Social History Tobacco Use Types Packs/Day Years [...] Upcoming Encounters Date Type Department Care Team ([facility] Contact Info) Description 10/19/2024 2:30 PM EDT Office Visit [facility] [address] [place] [address] [phone] Carmen Arauz NP 230 [place], [place] [phone] documented as of this encounter Visit Diagnoses Not on filedocumented in this encounter Care Teams Registered Midwife Relationship Specialty Start Date End Date Carmen Arauz NP 230 [place] [address] PCP - General Family Medicine 09/16/23 Alla Oliveira Compensation Intern 07/11/23 09/16/23 documented as of this encounter
--- OUTSIDE RECORDS SUMMARY | 2024-09-30 18:19 | XMS_ITS | Clinical Summary ---
Author Organization [employer] Address [address] [facility] 7t [place] [address] Care Team Providers Care Manager Filter Name Role Phone Carmen Arauz NP Primary Care Provider [phone] Allergies Active Allergy Reactions Criticality Noted Date [...] status of the Xolair. 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 ER precautions discussed. Pt sgrees with the plan. Assessment & Plan (09/16/2023 11:46 AM EDT): PRD 20 mg x 5d, counseled to discuss with checkout supervisor (appt next month) re adjusting Xolair dose vs changing to another med so that she doesn't end up using PRD that often. Patient is aware of side effects of group home use of steroids. DC Zyrtec and use desloratadine Continue Singulair FU with new PCP. Assessment & Plan (01/18/2023 2:16 PM EDT): Do not miss upcoming appointment with customer program specialist PT1 for visit will be provided Assessment & Plan (08/30/2022 9:35 AM EDT): Continue loratadine, singular, prescription for prednisone. Left message for PA specilist for status of the Xolair. 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 ER precautions discussed. Pt sgrees with the [...] Type Department Care Team Description 09/15/2024 Telephone [facility] [address] [place] [address] Carmen Arauz NP 09/15/2024 Refill [facility] [address] [place] [address] Carmen Arauz NP 09/15/2024 Refill [facility] [address] [place] [address] Ashwini Hogue MD 09/14/2024 11:00 AM EDT Office Visit [facility] [address] [place] [address] Joyce Birmingham MD Lumbar radiculopathy, chronic (Primary Dx); Dietary counseling; Exercise counseling; Overweight 09/14/2024 Travel 09/14/2024 Telephone [facility] [address] [place] [address] Carmen Arauz NP Appointment Request 2024 Telephone [facility] [address] [place] [address] Emerita Nash DO Appointment Request 09/10/2024 Refill [facility] [address] [place] [address] Carmen Arauz NP 09/10/2024 Refill [facility] [address] [place] [address] Carmen Arauz NP Lumbar spondylosis; Lumbar radiculopathy; Mild persistent asthma without complication 09/10/2024 Refill [facility] [address] [place] [address] Carmen Arauz NP Hyperpigmentation of skin 09/10/2024 Refill [facility] [address] [place] [address] Ashwini Hogue MD 09/07/2024 Outside Procedure [facility] [address] [place] [address] Guillermo, Irene, OD Presbyopia (Primary Dx) 09/04/2024 9:15 AM EDT Office Visit [facility] [address] [place] [address] GuillermoAndrewn, OD 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) 09/03/2024 Telephone [facility] [address] [place] [address] Carmen Arauz NP Mondays Chronic Pain Group 08/26/2024 Telephone [facility] [address] [place] [address] Carmen Arauz NP Saturday Chronic Pain Group 08/21/2024 Population Health Risk Score [facility] () Department [address] [place] [phone] Provider, Population Health Generic 08/07/2024 Patient Outreach [facility] [address] [place] [address] Carmen Arauz NP Pre-visit Planning ([facility]PA unable to reach [facility]) 08/06/2024 Refill [facility] [address] [place] [address] Carmen Arauz NP 08/05/2024 Telephone [facility] [address] [place] [address] Carmen Arauz NP Scheduling for pain group 07/23/2024 Telephone [facility] [address] [place] [address] GuillermoIrene fitzgerald, MANISHA 07/21/2024 Refill [facility] [address] [place], [place] [phone] Ashwini Hogue MD 07/07/2024 1:45 PM EST Office Visit [facility] [address] [place] [address] Carmen Arauz NP Hyperpigmentation of skin (Primary Dx); Lumbar radiculopathy, chronic 07/02/2024 Telephone [facility] [address] [place], [place] [phone] Tonya Canela MA TP request from Last [...] EDT Office Visit [facility] [address] [place], [place] [phone] Carmen Arauz NP [address] [place], [place] [phone] Health Maintenance Due Date Last Done Comments [...] Narrative 11/04/2023 11:24 AM EDT ? [facility] ? [address] ?[place] [address] ? Mammography Report ? Signed ? Patient: Tien,Franchesca ?MR#: [id number] ?? 88 ? : 1975 ?Acct:[id number] ? Age/Sex: 48 / F ?ADM Date: 10/08/23 ? Loc: HO.MAMMO ? Attending Dr: Carmen Arauz SENIOR QUALITY CONTROL TECHNICIAN ? Ordering Physician: Carmen Arauz SENIOR QUALITY CONTROL TECHNICIAN ?Results: 1Negati ?? ve ? Date of Service: 10/08/23 ?Follow Up: 1 Year From Orig ?? inal Mammogram ? Procedure(s): MM tomosynthesis screening BI ?? Accession Number(s): [id number] ? cc: Regla,Carmen B SENIOR QUALITY CONTROL TECHNICIAN ? EXAMINATION: ?? MM SCREENING DIGITAL BREAST [...] 11/04/231119 ? DD/ 1040 ? TD/TT: ? Forestry Technical Officer: ? Procedure Note Jayjay, Image - 11/04/2023 [facility] [address] [place] [address] Mammography Report Signed Patient: Franchesca ChauhanMR#: [id number] 88 : 1975Acct:[id number] Age/Sex: 48 / FADM Date: 10/08/23 Loc: HO.MAMMO Attending Dr: Carmen Arauz SENIOR QUALITY CONTROL TECHNICIAN Ordering Physician: Carmen Arauz NPResults: 1Negati ve Date of Service: 10/08/23Follow Up: 1 Year From Orig inal Mammogram Procedure(s): MM tomosynthesis screening BI Accession Number(s): [id number] cc: Carmen Arauz SENIOR QUALITY CONTROL TECHNICIAN EXAMINATION: MM SCREENING DIGITAL BREAST TOMOSYNTHESIS, BILATERAL [...] in OV> 11/04/23 1120 DD/ 1040 TD/TT: Forestry Technical Officer: us Carmen Arauz NP IMG BI PROCEDURES Final Result * Hepatitis C Antibody Reflex (01/31/2023 8:50 AM EDT) Hepatitis C Antibody Nonreactive Nonreactive [facility] Comment:Antibodies to HCV no t detected; does not exclude early acuteHCV infection. 01/31/2023 8:50 AM EDT 01/31/2023 11:11 AM EDT us Judith Sibley MD LAB BLOOD ORDERABLES Final Result [facility] [address] [place] [address] [phone] * HIV Ab/Ag ([facility]) (01/31/2023 8:50 AM EDT) HIV AB/AG Nonreactive Nonreactive [facility] Comment:HIV-1 p24 Ag and/or HIV-1/HIV-2 Ab not detected.A test result that is nonreactive does not exclude thepossibility of exposure to or infection with HIV-1 and/orHIV-2. Nonreactive results in this assay for individualswith prior exposure to HIV-1 and/or HIV-2 may be due toantigen and antibody levels that are below the limit ofdetection of this assay.The [employer] HIV Ag/Ab Combo assay result andsupplemental assay results should be interpreted inconjunction with the patient's clinical presentation,history and other laboratory results. If the results areinconsistent with clinical evidence, additional testing issuggested to confirm the result. 01/31/2023 8:50 AM EDT 01/31/2023 11:11 AM EDT us Judith Sibley MD LAB BLOOD ORDERABLES Final Result Performing Organization Address [facility] Co de Phone Number [facility] [address] [place] [phone] * Lipid Panel, Standard (01/31/2023 8:50 AM EDT) Triglycerides 79 <150 mg/dL [facility] Comment:Desirable Triglyceri de: less than 150 mg/dLBorderline High Triglyceride 150-199 mg/dLHigh Triglyceride: 200-499 mg/dLVery High Triglyceride: greater than or equal to 5OO mg/dL Cholesterol 150 <200 mg/dL [facility] Comment:Desirable Cholestero l: less than 200 mg/dLBorderline High Cholesterol: 200-239 mg/dLHigh Cholesterol: greater than 239 mg/dL LDL Cholesterol Calculated 86 <100 mg/dL [facility] Comment:Desirable LDL: less than 100 mg/dLNear Optimal/Above Optimal LDL: 110- 129 mg/dLBorderline High LDL: 130-159 mg/dLHigh LDL: 160-189 mg/dLVery High LDL: greater than or equal to 190 mg/dL HDL Cholesterol 49 >40 mg/dL [facility] Comment:Desirable HDL: great er than 40 mg/dL Note: This HDL assay may give artificially low results in patients with liver disease. Blood Venous blood specimen / Unknown 01/31/2023 8:50 AM EDT 01/31/2023 11:11 AM EDT us Judith Sibley MD LAB BLOOD ORDERABLES Final Result Performing Organization Address [facility] Co de Phone Number [facility] [address] [place] [address] [phone] * THINPREP TIS PAP AND HPV [...] with computer assisted technology. [facility] Contract Manager : SEE COMMENT [facility] Comment: SXA, CT(ASCP) CT screening location: [address] ??[phone] HPV nRNA E6/E7 Not Detected Not Detected [facility] Comment: Methodology: Station Air Traffic Control Specialist-Mediated Amplification This assay detects E6/E7 viral messenger RNA (mRNA) from 14 high-risk HPV types (16,18,31,33,35,39,45,51,52,56,58,59,66,68). ? Cervical sources are required for HPV testing. If a vaginal source from a patient who has had a total hysterectomy with removal of cervix was ?? submitted, please contact the testing laboratory for alternative testing options. ?? For additional information, please refer to http://education.NephroPlus/faq/EUX310x4 (This link if provided for information/ educational [...] Recently Relevant to Health Maintenance Insurance [facility] [place] [address] [place] [id number] Care Teams Manager Filter Relationship Specialty Start Date End Date Carmen Arauz NP [address] [place] [phone] PCP - General Family Medicine 09/16/23
--- OUTSIDE RECORDS SUMMARY | 2024-09-30 18:19 | XMS_ITS | Encounter Summary ---
Author Organization [employer] Address [address] [facility] 7t [place] [address] Care Team Providers Care Alumina Refinery Operator Name Role Phone Carmen Arauz NP Primary Care Provider [phone] Encounter Details Date Type Department Care Team (Late Contact Info) Description 09/03/2022 Telephone [facility] MEDICINE [address] [place] [address] [phone] Judith Parker MD [address] [place] [address] [phone] Social History Tobacco Use Types Packs/Day Years [...] 10/19/2024 2:30 PM EDT Office Visit [facility] [address] [place] [address] [phone] Carmen Arauz NP [address] [place] [address] documented as of this encounter Visit Diagnoses Not on filedocumented in this encounter Care Teams Alumina Refinery Operator Relationship Specialty Start Date End Date Carmen Arauz NP [address] [place] [address] PCP - General Family Medicine 09/16/23 Alla Oliveira Credit Risk Modeler 07/11/23 09/16/23 documented as of this encounter
--- OUTSIDE RECORDS SUMMARY | 2024-09-30 18:19 | XMS_ITS | Encounter Summary ---
Author Organization [employer] Address [address] [facility] [address] [facility] [address] 7[address] [place] [address] Care Team Providers Care Civil Engineering Project Designer Name Role Phone Carmen Arauz NP Primary Care Provider [phone] Reason for Visit * Reason Onset Date Comments Med Refill 10/22/2023 Encounter Details Date Type Department Care Team (Late st Contact Info) Description 10/22/2023 Refill [facility] [address] [place] [address] Payton Mcintyre MD [address] [place] [address] Social History Tobacco Use Types Packs/Day Years [...] 10/19/2024 2:30 PM EDT [facility] [address] [place] [address] Carmen Arauz NP [address] [place] [address] documented as of this encounter Visit Diagnoses Not on filedocumented in this encounter Additional Health Concerns Assessment Noted Time PHQ-9 Depression Total Score: 0 01/19/20 23 9:07 AM EDT documented as of this encounter Care Teams Civil Engineering Project Designer Relationship Specialty Start Date End Date Carmen Arauz NP [address] [place] [address] PCP - General Family Medicine 09/16/23 documented as of this encounter
--- OUTSIDE RECORDS SUMMARY | 2024-09-30 18:19 | XMS_ITS | Encounter Summary ---
Author Organization [employer] Address [address] [facility] [address] 7t [place] [address] Care Team Providers Care Director Of Cardiology Service Line Name Role Phone Carmen Arauz NP Primary Care Provider [phone] Reason for Visit * Reason Onset Date Comments Med Refill 05/15/2024 Encounter Details Date Type Department Care Team ([facility] st Contact Info) Description 05/15/2024 Refill [facility] 230 [place], [place] [phone] Judith Parker MD 230 [place], [place] [phone] Mild intermittent asthma, unspecified whether complicated Social [...] 2:30 PM EDT Office Visit [facility] [address] [place] [address] Carmen Arauz NP 230 [place] [address] documented as of this encounter Visit Diagnoses Diagnosis Mild intermittent asthma, unspecified whether complicated documented in this encounter Additional Health Concerns Assessment Noted Time PHQ-9 Depression Total Score: 9 02/05/20 24 8:58 AM EDT documented as of this encounter Care Teams Director Of Cardiology Service Line Relationship Specialty Start Date End Date Carmen Arauz NP 230 [place] [address] PCP - General Family Medicine 09/16/23 documented as of this encounter
--- OUTSIDE RECORDS SUMMARY | 2024-09-30 18:19 | XMS_ITS | Clinical Summary ---
Author Organization [facility] Address [address] [place] [phone] Phone Care Team Providers Care Manager Privacy Name Role Phone Physician, Pcp Unknown Primary [...] topic Insurance MEDICAID - [place] Care Teams Manager Privacy Relationship Specialty Start Date End Date Physician, Pcp Unknown PCP - General 06/01/24
--- OUTSIDE RECORDS SUMMARY | 2024-09-30 18:19 | XMS_ITS | Encounter Summary ---
Author Organization [employer] Address [address] [facility] [address] [place] [address] Care Team Providers Care Chief Minister Name Role Phone Carmen Arauz NP Primary Care Provider [phone] Reason for Visit * Reason Onset Date Comments Med Refill 04/15/2024 Encounter Details Date Type Department Care Team (Late st Contact Info) Description 04/15/2024 Refill [facility] MED[facility] [address] [place], [place] [phone] Carmen Arauz NP 230 [place], [place] [phone] Lumbar spondylosis; Lumbar radiculopathy Social History Tobacco [...] Description 10/19/2024 2:30 PM EDT Office Visit [facility] [address] [place] [address] Carmen Arauz NP [address] [place] [address] documented as of this encounter Visit Diagnoses Diagnosis Lumbar spondylosis Lumbosacral spondylosis without myelopathy Lumbar radiculopathy Thoracic or lumbosacral neuritis or radiculitis, unspecified documented in this encounter Additional Health Concerns Assessment Noted Time PHQ-9 Depression Total Score: 9 02/05/20 24 8:58 AM EDT documented as of this encounter Care Teams Chief Minister Relationship Specialty Start Date End Date Carmen Arauz NP [address] [place] [address] PCP - General Family Medicine 09/16/23 documented as of this encounter
--- OUTSIDE RECORDS SUMMARY | 2024-09-30 18:19 | XMS_ITS | Encounter Summary ---
Author Organization [employer] Address [address] [facility] [address] 7[address] [place] [address] Care Team Providers Care Mechanical Drafter Name Role Phone Carmen Arauz NP Primary Care Provider [phone] Reason for Visit * Reason Onset Date Comments Nurse Triage 05/26/2024 Encounter Details Date Type Department Care Team ([facility] st Contact Info) Description 05/26/2024 Telephone [facility] 230 [place], [place] [phone] Carmen Arauz, YANNA 230 [place], [place] [phone] Nurse Triage Social History Tobacco Use Types [...] Triage call Pt was last seen in [facility] 05/25/24. Pt has been doing everything as [...] call regarding prior message. Contact pt at [phone] * Telephone Encounter - Adalid Joe - [...] 10/19/2024 2:30 PM EDT Office Visit [facility] [address] [place] [address] Carmen Arauz NP 230 [place] [address] documented as of this encounter Visit Diagnoses Not on filedocumented in this encounter Additional Health Concerns Assessment Noted Time PHQ-9 Depression Total Score: 9 02/05/20 24 8:58 AM EDT documented as of this encounter Care Teams Mechanical Drafter Relationship Specialty Start Date End Date Carmen Arauz NP 230 [place] [address] PCP - General Family Medicine 09/16/23 documented as of this encounter
--- OUTSIDE RECORDS SUMMARY | 2024-09-30 18:19 | XMS_ITS | Encounter Summary ---
Author Organization [employer] Address [address] [facility] [address] 7t [place] [address] Care Team Providers Care Supervisor Ordnance Truck Installation Name Role Phone Carmen Arauz NP Primary Care Provider [phone] Reason for Visit * Reason Onset Date Comments triage 08/16/2022 Encounter Details Date Type Department Care Team ([facility] st Contact Info) Description 08/16/[address] [facility] 230 [place], [place] [phone] Judith Parker MD 230 [place], [place] [phone] triage Social History Tobacco Use Types Packs/Day [...] 10/19/2024 2:30 PM EDT Office Visit [facility] 230 [place] [address] Carmen Arauz NP 230 [place] [address] documented as of this encounter Visit Diagnoses Not on filedocumented in this encounter Care Teams Supervisor Ordnance Truck Installation Relationship Specialty Start Date End Date Carmen Arauz NP 230 [place] [address] PCP - General Family Medicine 09/16/23 Alla Oliveira Inbound Customer Service Representative 07/11/23 09/16/23 documented as of this encounter
--- OUTSIDE RECORDS SUMMARY | 2024-09-30 18:19 | XMS_ITS | Encounter Summary ---
Author Organization [employer] Address [address] [facility] [address] [address] 7[address] [place] [address] Care Team Providers Care Loan Servicing Representative Name Role Phone Carmen Arauz NP Primary Care Provider [phone] Reason for Visit * Reason Onset Date Comments Appointment Request 2024 Encounter Details Date Type Department Care Team ([facility] st Contact Info) Description 2024 Telephone [facility] 230 [place], [place] [phone] Emerita Nash DO 230 [place], [place] [phone] Appointment Request Social History Tobacco Use Types [...] requesting a to r/s appt from 08/14/24. Director Of Digital Marketing advised pt that there is no appt available and told pt that she would be put on a recall for whenever there is a opening. Contact pt at [phone] documented in this encounter Plan of Treatment Upcoming Encounters Date Type Department Care Team (Late st Contact Info) Description 10/19/2024 2:30 PM EDT Office Visit [facility] 230 [place] [address] Carmen Arauz NP 230 [place] [address] documented as of this encounter Visit Diagnoses Not on filedocumented in this encounter Additional Health Concerns Assessment Noted Time PHQ-9 Depression Total Score: 9 02/05/20 24 8:58 AM EDT documented as of this encounter Care Teams Loan Servicing Representative Relationship Specialty Start Date End Date Carmen Arauz NP 230 [place] [address] PCP - General Family Medicine 09/16/23 documented as of this encounter
--- OUTSIDE RECORDS SUMMARY | 2024-09-30 18:19 | XMS_ITS | Encounter Summary ---
Author Organization [employer] Address [address] [facility] [address] [facility] [address] 7[address] [place] [address] Care Team Providers Care Aegis Operations Specialist Name Role Phone Carmen Arauz NP Primary Care Provider [phone] Reason for Visit * Reason Onset Date Comments Med Refill 05/17/2023 Encounter Details Date Type Department Care Team (Late st Contact Info) Description 05/17/2023 Refill [facility] 230 [place], [place] [phone] Emerita Nash DO 230 [place], [place] [phone] Social History Tobacco Use Types Packs/Day Years [...] 2:30 PM EDT Office Visit [facility] 230 [place] [address] Carmen Arauz NP 230 [place] [address] documented as of this encounter Visit Diagnoses Not on filedocumented in this encounter Additional Health Concerns Assessment Noted Time PHQ-9 Depression Total Score: 0 01/19/20 23 9:07 AM EDT documented as of this encounter Care Teams Aegis Operations Specialist Relationship Specialty Start Date End Date Carmen Arauz NP 230 [place] [address] PCP - General Family Medicine 09/16/23 Alla Oliveira Pressing Machine Operator 07/11/23 09/16/23 documented as of this encounter
--- OUTSIDE RECORDS SUMMARY | 2024-09-30 18:19 | XMS_ITS | Encounter Summary ---
Author Organization [employer] Address [address] [facility] [facility] [address] 7[address] [place] [address] Care Team Providers Care Flight Deck Officer Name Role Phone Carmen Arauz NP Primary Care Provider [phone] Reason for Visit * Reason Onset Date Comments Med Refill 11/25/2023 Encounter Details Date Type Department Care Team (Late st Contact Info) Description 11/25/2023 Refill [facility] 230 [place] [address] Payton Mcintyre MD [address] [place] [address] Social History Tobacco Use Types Packs/Day Years [...] 2:30 PM EDT Office Visit [facility] 230 [place] [address] Carmen Arauz NP 230 [place] [address] documented as of this encounter Visit Diagnoses Not on filedocumented in this encounter Additional Health Concerns Assessment Noted Time PHQ-9 Depression Total Score: 0 01/19/20 23 9:07 AM EDT documented as of this encounter Care Teams Flight Deck Officer Relationship Specialty Start Date End Date Carmen Arauz NP 230 [place] [address] PCP - General Family Medicine 09/16/23 documented as of this encounter
--- OUTSIDE RECORDS SUMMARY | 2024-09-30 18:19 | XMS_ITS | Encounter Summary ---
Author Organization [employer] Address [address] 7[address] [place] [address] Care Team Providers Care Apparel Manufacture Instructor Name Role Phone Carmen Arauz NP Primary Care Provider [phone] Reason for Visit * Reason Onset Date Comments Med Refill 04/15/2024 Encounter Details Date Type Department Care Team ([facility] st Contact Info) Description 04/15/2024 Refill [facility] 230 [place] [address] Judith Parker MD 230 [place] [address] Social History Tobacco Use Types Packs/Day Years [...] Description 10/19/2024 2:30 PM EDT Office Visit [facility] [address] [place] [address] Carmen Arauz NP 230 [place] [address] documented as of this encounter Visit Diagnoses Not on filedocumented in this encounter Additional Health Concerns Assessment Noted Time PHQ-9 Depression Total Score: 9 02/05/20 24 8:58 AM EDT documented as of this encounter Care Teams Apparel Manufacture Instructor Relationship Specialty Start Date End Date Carmen Arauz NP 230 [place] [address] PCP - General Family Medicine 09/16/23 documented as of this encounter
--- OUTSIDE RECORDS SUMMARY | 2024-09-30 18:19 | XMS_ITS | Encounter Summary ---
Author Organization [employer] Address [address] 7[address] [place] [address] Care Team Providers Care Brim Stretcher Name Role Phone Carmen Arauz NP Primary Care Provider [phone] Reason for Visit * Reason Onset Date Comments Med Refill 06/22/2024 Encounter Details Date Type Department Care Team ([facility] st Contact Info) Description 06/22/2024 Refill [facility] 230 [place], [place] [phone] Carmen Arauz NP 230 [place], [place] [phone] Mild persistent asthma without complication Social History [...] TC from pt asking about referral for PRESCHOOL HEAD TEACHER. Nurse informed pt that a message has been sent to her provider, but the referral has not been placed yet. Pt verbalized understanding and denies anyfurther questions or concerns at this time. documented in this encounter Plan of Treatment Upcoming Encounters Date Type Department Care Team (Late st Contact Info) Description 10/19/2024 2:30 PM EDT Office Visit [facility] 230 [place] [address] Carmen Arauz NP 230 [place] [address] documented as of this encounter Visit Diagnoses Diagnosis Mild persistent asthma without complication documented in this encounter Additional Health Concerns Assessment Noted Time PHQ-9 Depression Total Score: 9 02/05/20 8:58 AM EDT documented as of this encounter Care Teams Brim Stretcher Relationship Specialty Start Date End Date Carmen Arauz NP [address] [place] [address] PCP - General Family Medicine 09/16/23 documented as of this encounter
--- OUTSIDE RECORDS SUMMARY | 2024-09-30 18:19 | XMS_ITS | Encounter Summary ---
Author Organization [employer] Address [address] [facility] [address] [place] [address] Care Team Providers Care Returning Officer Name Role Phone Carmen Arauz NP Primary Care Provider [phone] Reason for Visit * Reason Onset Date Comments Med Refill 11/25/2023 Encounter Details Date Type Department Care Team (Late st Contact Info) Description 11/25/2023 Refill [facility] 230 [place], [place] [phone] Judith Parker MD 230 [place], [place] [phone] Mild persistent asthma without complication Social History [...] [facility] 230 [place] [address] Carmen Arauz NP 230 [place] [address] documented as of this encounter Visit Diagnoses Diagnosis Mild persistent asthma without complication documented in this encounter Additional Health Concerns Assessment Noted Time PHQ-9 Depression Total Score: 0 01/19/20 23 9:07 AM EDT documented as of this encounter Care Teams Returning Officer Relationship Specialty Start Date End Date Carmen Arauz NP 230 [place] [address] PCP - General Family Medicine 09/16/23 documented as of this encounter
--- OUTSIDE RECORDS SUMMARY | 2024-09-30 18:19 | XMS_ITS | Encounter Summary ---
Author Organization [employer] Address [address] [facility] [address] 7[address] [place] [address] Care Team Providers Care Chemical Engineering Technologist Name Role Phone Carmen Arauz NP Primary Care Provider [phone] Encounter Details Date Type Department Care Team ([facility] st Contact Info) Description 05/25/2024 Telephone [facility] 230 [place], [place] [phone] Carmen Arauz NP 230 [place] [address] Social History Tobacco Use Types Packs/Day Years [...] 2:30 PM EDT Office Visit [facility] 230 [place] [address] Carmen Arauz NP 230 [place] [address] documented as of this encounter Visit Diagnoses Not on filedocumented in this encounter Additional Health Concerns Assessment Noted Time PHQ-9 Depression Total Score: 9 02/05/20 24 8:58 AM EDT documented as of this encounter Care Teams Chemical Engineering Technologist Relationship Specialty Start Date End Date Carmen Arauz NP 230 [place] [address] PCP - General Family Medicine 09/16/23 documented as of this encounter
[2024-10-06 15:00] LABS: HPV Genotype 16 Negative (Negative); HPV Genotype 18 Negative (Negative); HPV High Risk Negative (Negative)
== END 2024-09-30 15:05 | disposition home or self-care (01) ==
LOC: HO.LNP 15:04
PROVIDERS: PCP Nurse Practitioner Family; Visit Provider Advanced Practice Midwife
DX: Z01.419 Encounter for gynecological examination (general) (routine) without abnormal findings (principal); N95.1 Menopausal and female climacteric states; M25.561 Pain in right knee; M25.562 Pain in left knee; M53.3 Sacrococcygeal disorders, not elsewhere classified; G89.29 Other chronic pain
CPT/HCPCS: 87626; 88175; 99386; 99459

== ENCOUNTER 2024-09-30 15:04 | Outpatient (AMB) | payer MEDICAID, SELFPAY ==
--- NOTE | 2024-09-30 14:46 | A.OFFVIS_ITS ---
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 Also, thinks she had a pap smear last year with Dr. Smith but she could be wrong and if she is last would of been 2007. Complaints of continuous yeast infections. Loader Machine: Loader Machine Present (Jenna) Accompanied by: Self / Same As Patient Allergies Penicillins [PENICILLINS] Allergy (Unknown, Verified 09/30/24 14:49) HIVES Medication List - Last Reconciled 09/30/24 by Lynne Connor CNM acetaminophen ER 650 mg PO Q12H albuterol sulfate 90 mcg/actuation 2 puffs inhalation Q6H PRN albuterol sulfate mg inhalation Q4H PRN budesonide-formoterol 160-4.5 mcg/actuation (Symbicort) 2 puffs inhalation BID epinephrine IM DIRECTED PRN famotidine 40 mg PO QNOON PRN loratadine (Allergy Relief (loratadine)) 10 mg PO DAILY PRN montelukast (Singulair) 10 mg PO BEDTIME omalizumab (Xolair) 300 mg subcut Q4W ondansetron 4 mg PO Q6H oxycodone 5 mg PO Q8H PRN 10 days pantoprazole (Protonix) 40 mg PO BID 30 days polyethylene glycol 3350 (Miralax) 17 grams PO .qhs 30 days sucralfate (Carafate) 2 grams (2 x 1 gram) PO .q noon Is last menstrual period known: No Post menopausal: No Patient : No HPI HPI 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 She normally goes to the [facility] for her healthcare. She was not comfortable getting her Pap smears there so she got a referral to come here. She on questioning remembers that she did have some abnormal Pap smear years and years ago and she had some polyps removed at [facility] back in the . She had 3 children with the midwives and delivery them at [facility] and remembers coming to our practice when we were on [facility] and [facility] in 1995 and says I delivered her 1st child who is now 28. She moved to [place] for few years and she need back 3 years ago. She has had some orthopedic concerns and she has SI joint pain and she has done injections and PT and everything and she continues to do her exercises. She also had knee problems and did gel and it worked for a while but then she had her meniscus for paired and she has been doing very well since then. She is with the same partner for 19 years she had a tubal ligation she has no worries about STDs and declines testing. She thought she had a Pap smear last year but there was no Pap smear found in the system. She also has her left hand/wrist fused surgically because of a mechanical issue with her wrist. 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 She has not had a period in 2 years she says her mother also went through menopause it age 47. 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 Chronic urticaria Surgical History History of esophagogastroduodenoscopy (EGD) H/O colonoscopy S/P right knee arthroscopy (03/20/24) H/O tubal ligation Hx of hand surgery (~2013) Family History Father Throat cancer Family/Other Breast cancer Social History Are you a primary rn progressive care unit to a significant other at home: No Do you presently have visiting nurse or other home services: No Alcohol intake: never Patient Tobacco Use Status: Current everyday Tobacco user Tobacco use type: Cigarette Cigarette Packs Per Day: 1.0 Cigarettes Per Day: 6 Substance Use Type: Marijuana Current occupational status: unemployed Current occupation: rt handed Female Reproductive History Menstrual Age of Menarche: 15 control method: none Total pregnancies: 4 Full term: 3 History of abnormal pap smear: No Date of Mammogram: 10/08/23 (bi rad 1) Physical Exam Vital Signs: Last Vital Signs BP 96/60 09/30/24 14:51 BMI result Body Mass Index 28.8 Const General: healthy appearing, comfortable, no acute distress, well developed and alert Nutritional Appearance: average body habitus Orientation/consciousness: patient oriented x3 Limitations: no limitations HEENT Head: Yes normocephalic Neck Neck: Yes normal visual inspection Chest Chest palpation & inspection: normal inspection of the chest Breast/axilla inspection: normal inspection of the breasts and normal inspection of the axillae Breast/axilla palpation: normal palpation of the breasts and normal palpation of the axillae Resp Effort & Inspection: normal respiratory effort GI Inspection: Yes normal to inspection, No Abdominal wall edema and No distended Palpation (GI): Soft to palpation and nontender Other: Normal external exam vagina is pink and moist very normal healthy appearing whitish clear mucus. Cervix multiparous pink smooth. Cervix and uterus small anteverted mobile nontender Adnexa nontender nonenlarged good muscle tone. General: Yes bladder normal to palpation External Female Exam: normal external appearance and normal appearance of the urethra Speculum Exam - Vagina: normal appearance of the vagina, normal palpation and normal vaginal discharge Speculum Exam - Cervix: normal appearance of the cervix, normal palpation and nontender Bimanual exam- vagina & uterus: normal bimanual exam, normal palpation, uterine size normal, bladder normal to palpation, consistency normal, normal palpation, uterine mobility normal, uterine shape normal, No Cervical tenderness present, non-tender and no cervical motion tenderness Bimanual Exam- Adnexa, other: normal adnexae, no masses, normal and No adnexal tenderness Neuro General: patient oriented x3 Assessment & Plan Assessment & Plan (1) Chronic right SI joint pain: Code(s): M53.3 - Sacrococcygeal disorders, not elsewhere classified; G89.29 - Other chronic pain Category: Medical (2) Bilateral knee pain: Code(s): M25.561 - Pain in right knee; M25.562 - Pain in left knee Category: Medical (3) Well woman exam with routine gynecological exam: Code(s): Z01.419 - Encounter for gynecological examination (general) (routine) without abnormal findings Category: Medical (4) Cervical cancer screening: Code(s): Z12.4 - Encounter for screening for malignant neoplasm of cervix Category: Medical (5) Perimenopause: Code(s): N95.1 - Menopausal and female climacteric states Category: Medical Plan -----Discussed in this visit the following: healthy balanced diet, regular and consistent exercise, getting recommended health screens, doing the best she can for her particular health concerns, kegel exercises, pap smear screening and followup recommendations, mammography screening and SBE, normal changes in cycles in her life stage--- . Discussed her amenorrhea x2 years, which is around the same time her mother went through menopause. she is not concerned she feels like it is normal. She does not get any hot flashes or anything but it occurred for her around the same time as her mother so feels normal to her she is not experiencing any vaginal dryness at this time. Discussed the possibility of doing them hormone tests as see if she is fact is in menopause but she is not concerned. Reviewed all the physical exercises she does for her knee and lower back and SI pain. She has no other protection agent concerns whatsoever. She said a few weeks ago she had an odor and she used boric acid but she says she did not not like the side effects she declined any testing for any infection today. Her discharge appeared normal and healthy and in fact not quite menopausal. Orders: Orders Pap Smear Today Z00.00 - Encounter for general adult medical examination without abnormal findings Coding Level of Care Code New Pt Prev Care 40-64y(33918) Diagnoses Chronic right SI joint pain M53.3; G89.29 Bilateral knee pain M25.561; M25.562 Well woman exam with routine gynecological exam Z01.419 Cervical cancer screening Z12.4 Perimenopause N95.1
[2024-09-30 14:51] VITALS: BP 96/60; BMI 28.8
--- OUTSIDE RECORDS SUMMARY | 2024-09-30 17:50 | XMS_ITS | Encounter Summary ---
Author Organization [employer] Address [address] 7[address] [place] [address] Care Team Providers Care Motorcyles Final Inspector Name Role Phone Carmen Arauz NP Primary Care Provider [phone] Reason for Visit * Reason Onset Date Comments Med Refill 11/25/2023 Encounter Details Date Type Department Care Team (Late st Contact Info) Description 11/25/2023 Refill [facility] [address] [place] [address] Payton Mcintyre MD [address] [place] [address] Social History Tobacco Use Types Packs/Day Years [...] 10/19/2024 2:30 PM EDT Office Visit [facility] [address] [place] [address] Carmen Arauz NP [address] [place] [address] documented as of this encounter Visit Diagnoses Not on filedocumented in this encounter Additional Health Concerns Assessment Noted Time PHQ-9 Depression Total Score: 0 01/19/20 23 9:07 AM EDT documented as of this encounter Care Teams Motorcyles Final Inspector Relationship Specialty Start Date End Date Carmen Arauz NP [address] [place] [address] PCP - General Family Medicine 09/16/23 documented as of this encounter
--- OUTSIDE RECORDS SUMMARY | 2024-09-30 17:50 | XMS_ITS | Encounter Summary ---
Author Organization [employer] Address [address] [place] [address] Care Team Providers Care Organic Chemist Name Role Phone Carmen Arauz NP Primary Care Provider [phone] Reason for Visit * Reason Onset Date Comments Med Refill 02/18/2024 Encounter Details Date Type Department Care Team ([facility] st Contact Info) Description 02/18/2024 Refill [facility] [address] [place], [place] [phone] Payton Mcintyre MD [address] [place] [address] Social History Tobacco Use Types Packs/Day Years [...] 10/19/2024 2:30 PM EDT Office Visit [facility] [address] [place] [address] Carmen Arauz NP [address] [place] [address] documented as of this encounter Visit Diagnoses Not on filedocumented in this encounter Additional Health Concerns Assessment Noted Time PHQ-9 Depression Total Score: 9 02/05/20 24 8:58 AM EDT documented as of this encounter Care Teams Organic Chemist Relationship Specialty Start Date End Date Carmen Arauz NP [address] [place] [address] PCP - General Family Medicine 09/16/23 documented as of this encounter
--- OUTSIDE RECORDS SUMMARY | 2024-09-30 17:50 | XMS_ITS | Encounter Summary ---
Author Organization [employer] Address [address] [place] [address] Care Team Providers Care Lot Attendant Name Role Phone Carmen Arauz NP Primary Care Provider [phone] Reason for Visit * Reason Comments Med Refill Encounter Details Date Type Department Care Team ([facility] st Contact Info) Description 05/18/2024 Refill [facility] [address] [place], [place] [phone] Judith Parker MD 230 [place], [place] [phone] Mild persistent asthma without complication Social History [...] [facility] [address] [place] [address] Carmen Arauz NP [address] [place] [address] documented as of this encounter Visit Diagnoses Diagnosis Mild persistent asthma without complication documented in this encounter Additional Health Concerns Assessment Noted Time PHQ-9 Depression Total Score: 9 02/05/20 24 8:58 AM EDT documented as of this encounter Care Teams Lot Attendant Relationship Specialty Start Date End Date Carmen Arauz NP [address] [place] [address] PCP - General Family Medicine 09/16/23 documented as of this encounter
--- OUTSIDE RECORDS SUMMARY | 2024-09-30 17:50 | XMS_ITS | Encounter Summary ---
Author Organization [employer] Address [address] [place] [address] Care Team Providers Care Dry Placer Machine Operator Name Role Phone Carmen Arauz NP Primary Care Provider Encounter Details Date Type Department Care Team ([facility] st Contact Info) Description 05/18/2024 Telephone [facility] [address] [place], [place] [phone] Carmen Arauz NP [address] [place] [address] Social History Tobacco Use Types Packs/Day Years [...] Description 10/19/2024 2:30 PM EDT Office Visit [facility] [address] [place] [address] Carmen Arauz NP [address] [place] [address] documented as of this encounter Visit Diagnoses Not on filedocumented in this encounter Additional Health Concerns Assessment Noted Time PHQ-9 Depression Total Score: 9 02/05/20 24 8:58 AM EDT documented as of this encounter Care Teams Dry Placer Machine Operator Relationship Specialty Start Date End Date Carmen Arauz NP [address] [place] [address] PCP - General Family Medicine 09/16/23 documented as of this encounter
--- OUTSIDE RECORDS SUMMARY | 2024-09-30 17:50 | XMS_ITS | Encounter Summary ---
Author Organization [employer] Address [address] [place] [address] Care Team Providers Care Fountain Vending Mechanic Name Role Phone Carmen Arauz NP Primary Care Provider [phone] Reason for Visit * Reason Onset Date Comments Med Refill 11/25/2023 Encounter Details Date Type Department Care Team (Late st Contact Info) Description 11/25/2023 Refill [facility] [address] [place], [place] [phone] Judith Parker MD [address] [place], [place] [phone] Mild persistent asthma without complication Social History [...] Description 10/19/2024 2:30 PM EDT Office Visit [facility] [address] [place] [address] Carmen Arauz NP [address] [place] [address] documented as of this encounter Visit Diagnoses Diagnosis Mild persistent asthma without complication documented in this encounter Additional Health Concerns Assessment Noted Time PHQ-9 Depression Total Score: 0 01/19/20 23 9:07 AM EDT documented as of this encounter Care Teams Fountain Vending Mechanic Relationship Specialty Start Date End Date Carmen Arauz NP [address] [place] [address] PCP - General Family Medicine 09/16/23 documented as of this encounter
--- OUTSIDE RECORDS SUMMARY | 2024-09-30 17:50 | XMS_ITS | Encounter Summary ---
Author Organization [employer] Address [address] [place] [address] Care Team Providers Care Service Center Specialist Name Role Phone Carmen Arauz NP Primary Care Provider [phone] Reason for Visit * Reason Onset Date Comments Med Refill 10/22/2023 Encounter Details Date Type Department Care Team (Late st Contact Info) Description 10/22/2023 Refill [facility] [address] [place] [address] Payton Mcintyre MD [address] [place] [address] Social History Tobacco Use Types Packs/Day Years [...] Description 10/19/2024 2:30 PM EDT Office Visit [facility] [address] [place] [address] Carmen Arauz NP [address] [place] [address] documented as of this encounter Visit Diagnoses Not on filedocumented in this encounter Additional Health Concerns Assessment Noted Time PHQ-9 Depression Total Score: 0 01/19/20 23 9:07 AM EDT documented as of this encounter Care Teams Service Center Specialist Relationship Specialty Start Date End Date Carmen Arauz NP [address] [place] [address] PCP - General Family Medicine 09/16/23 documented as of this encounter
--- OUTSIDE RECORDS SUMMARY | 2024-09-30 17:50 | XMS_ITS | Encounter Summary ---
Author Organization [employer] Address [address] [place] [address] Care Team Providers Care Electric Stove Mechanic Name Role Phone Carmen Arauz NP Primary Care Provider [phone] Reason for Visit * Reason Onset Date Comments Med Refill 06/22/2024 Encounter Details Date Type Department Care Team ([facility] st Contact Info) Description 06/22/2024 Refill [facility] [address] [place], [place] [phone] Carmen Arauz NP [address] [place], [place] [phone] Mild persistent asthma without complication Social History [...] TC from pt asking about referral for MANUFACTURING STOREPERSON. Nurse informed pt that a message has [...] [facility] [address] [place] [address] Carmen Arauz NP [address] [place] [address] documented as of this encounter Visit Diagnoses Diagnosis Mild persistent asthma without complication documented in this encounter Additional Health Concerns Assessment Noted Time PHQ-9 Depression Total Score: 9 02/05/20 8:58 AM EDT documented as of this encounter Care Teams Electric Stove Mechanic Relationship Specialty Start Date End Date Carmen Arauz NP [address] [place] [address] PCP - General Family Medicine 09/16/23 documented as of this encounter
--- OUTSIDE RECORDS SUMMARY | 2024-09-30 17:50 | XMS_ITS | Encounter Summary ---
Author Organization [employer] Address [address] [place] [address] Care Team Providers Care Electrician Marine Name Role Phone Carmen Arauz NP Primary Care Provider [phone] Reason for Visit * Reason Onset Date Comments Med Refill 06/22/2024 Encounter Details Date Type Department Care Team ([facility] st Contact Info) Description 06/22/2024 Refill [facility] [address] [place] [address] Ashwini Hogue MD [address] [place] [address] Social History Tobacco Use Types Packs/Day Years [...] [facility] [address] [place] [address] Carmen Arauz NP [address] [place] [address] documented as of this encounter Visit Diagnoses Not on filedocumented in this encounter Additional Health Concerns Assessment Noted Time PHQ-9 Depression Total Score: 9 02/05/20 24 8:58 AM EDT documented as of this encounter Care Teams Electrician Marine Relationship Specialty Start Date End Date Carmen Arauz NP [address] [place] [address] PCP - General Family Medicine 09/16/23 documented as of this encounter
--- OUTSIDE RECORDS SUMMARY | 2024-09-30 17:50 | XMS_ITS | Encounter Summary ---
Author Organization [employer] Address [address] [place] [address] Care Team Providers Care Hammerer Tab Name Role Phone Carmen Arauz NP Primary Care Provider [phone] Reason for Visit * Reason Onset Date Comments Med Refill 05/17/2023 Encounter Details Date Type Department Care Team (Late st Contact Info) Description 05/17/2023 Refill [facility] [address] [place], [place] [phone] Emerita Nash DO [address] [place], [place] [phone] Social History Tobacco Use Types Packs/Day Years [...] Description 10/19/2024 2:30 PM EDT Office Visit [facility] [address] [place] [address] Carmen Arauz NP [address] [place] [address] documented as of this encounter Visit Diagnoses Not on filedocumented in this encounter Additional Health Concerns Assessment Noted Time PHQ-9 Depression Total Score: 0 01/19/20 23 9:07 AM EDT documented as of this encounter Care Teams Hammerer Tab Relationship Specialty Start Date End Date Carmen Arauz NP [address] [place] [address] PCP - General Family Medicine 09/16/23 Alla Oliveira Elevator Service Mechanic 07/11/23 09/16/23 documented as of this encounter
--- OUTSIDE RECORDS SUMMARY | 2024-09-30 17:50 | XMS_ITS | Clinical Summary ---
Author Organization [facility] Address [address] [place] [phone] Phone Care Team Providers Care Spool Hauler Name Role Phone Physician, Pcp Unknown Primary [...] topic Insurance MEDICAID - [place] Care Teams Spool Hauler Relationship Specialty Start Date End Date Physician, Pcp Unknown PCP - General 06/01/24
--- OUTSIDE RECORDS SUMMARY | 2024-09-30 17:50 | XMS_ITS | Encounter Summary ---
Author Organization [employer] Address [address] [place] [address] Care Team Providers Care Operations Supervisor 2Nd Shift Name Role Phone Carmen Arauz NP Primary Care Provider [phone] Reason for Visit * Reason Onset Date Comments Nurse Triage 05/15/2024 Encounter Details Date Type Department Care Team ([facility] st Contact Info) Description 05/15/[address] [facility] [address] [place], [place] [phone] Carmen Arauz, YANNA [address] [place], [place] [phone] Nurse Triage Social History Tobacco Use Types [...] to follow with patient. Patient reaced at [phone]. Protocol Used: Tinnitus (Adult) Protocol-Based Disposition: See [...] caller accepted this outcome. Contact pt at [phone] documented in this encounter Plan of Treatment Upcoming Encounters Date Type Department Care Team (Late st Contact Info) Description 10/19/2024 2:30 PM EDT Office Visit [facility] [address] [place] [address] Carmen Arauz NP [address] [place] [address] documented as of this encounter Visit Diagnoses Not on filedocumented in this encounter Additional Health Concerns Assessment Noted Time PHQ-9 Depression Total Score: 9 02/05/20 8:58 AM EDT documented as of this encounter Care Teams Operations Supervisor 2Nd Shift Relationship Specialty Start Date End Date Carmen Arauz NP [address] [place] [address] PCP - General Family Medicine 09/16/23 documented as of this encounter
--- OUTSIDE RECORDS SUMMARY | 2024-09-30 17:50 | XMS_ITS | Encounter Summary ---
Author Organization [employer] Address [address] [place] [address] Care Team Providers Care Finishing Room Operator Name Role Phone Carmen Arauz NP Primary Care Provider [phone] Reason for Visit * Reason Onset Date Comments Med Refill 05/15/2024 Encounter Details Date Type Department Care Team ([facility] st Contact Info) Description 05/15/2024 Refill [facility] [address] [place], [place] [phone] Judith Parker MD [address] [place], [place] [phone] Mild intermittent asthma, unspecified whether complicated Social [...] Description 10/19/2024 2:30 PM EDT Office Visit [facility] [address] [place] [address] Carmen Arauz NP 230 [place] [address] documented as of this encounter Visit Diagnoses Diagnosis Mild intermittent asthma, unspecified whether complicated documented in this encounter Additional Health Concerns Assessment Noted Time PHQ-9 Depression Total Score: 9 02/05/20 24 8:58 AM EDT documented as of this encounter Care Teams Finishing Room Operator Relationship Specialty Start Date End Date Carmen Arauz NP [address] [place] [address] PCP - General Family Medicine 09/16/23 documented as of this encounter
--- OUTSIDE RECORDS SUMMARY | 2024-09-30 17:50 | XMS_ITS | Encounter Summary ---
Author Organization [employer] Address [address] [facility] [address] [place] [address] Care Team Providers Care Disaster Recovery Analyst Name Role Phone Carmen Arauz NP Primary Care Provider [phone] Encounter Details Date Type Department Care Team (Late Contact Info) Description 09/03/2022 Telephone [facility] [address] [place] [phone] Judith Parker MD [address] [place] [address] [phone] Social History Tobacco Use Types Packs/Day Years [...] 10/19/2024 2:30 PM EDT Office Visit [facility] [address] [place] [phone] Carmen Arauz NP [address] [place] [address] documented as of this encounter Visit Diagnoses Not on filedocumented in this encounter Care Teams Disaster Recovery Analyst Relationship Specialty Start Date End Date Carmen Arauz NP [address] [place] [address] PCP - General Family Medicine 09/16/23 Alla Oliveira Machine Operator Assistant 07/11/23 09/16/23 documented as of this encounter
--- OUTSIDE RECORDS SUMMARY | 2024-09-30 17:50 | XMS_ITS | Encounter Summary ---
Author Organization [employer] Address [address] [place] [address] Care Team Providers Care Plant Taxonomist Name Role Phone Carmen Arauz NP Primary Care Provider [phone] Reason for Visit * Reason Onset Date Comments Med Refill 12/15/2023 Encounter Details Date Type Department Care Team ([facility] st Contact Info) Description 12/15/2023 Refill [facility] [address] [place], [place] [phone] Payton Mcintyre MD [address] [place] [address] Social History Tobacco Use Types Packs/Day Years [...] 2:30 PM EDT Office Visit [facility] [address] [place] [address] Carmen Arauz NP [address] [place] [address] documented as of this encounter Visit Diagnoses Not on filedocumented in this encounter Additional Health Concerns Assessment Noted Time PHQ-9 Depression Total Score: 0 01/19/20 23 9:07 AM EDT documented as of this encounter Care Teams Plant Taxonomist Relationship Specialty Start Date End Date Carmen Arauz NP [address] [place] [address] PCP - General Family Medicine 09/16/23 documented as of this encounter
--- OUTSIDE RECORDS SUMMARY | 2024-09-30 17:51 | XMS_ITS | Encounter Summary ---
Author Organization [employer] Address [address] [place] [address] Care Team Providers Care Assistant Director Of Plant Operations Name Role Phone Carmen Arauz NP Primary Care Provider [phone] Reason for Visit * Reason Onset Date Comments Nurse Triage 05/26/2024 Encounter Details Date Type Department Care Team ([facility] st Contact Info) Description 05/26/2024 Telephone [facility] [address] [place], [place] [phone] Carmen Arauz, YANNA [address] [place], [place] [phone] Nurse Triage Social History Tobacco Use Types [...] Triage call Pt was last seen in [facility] 05/25/24. Pt has been doing everything [...] call regarding prior message. Contact pt at [phone] * Telephone Encounter - Adalid Joe - [...] Visit [facility] [address] [place] [address] Carmen Arauz NP [address] [place] [address] documented as of this encounter Visit Diagnoses Not on filedocumented in this encounter Additional Health Concerns Assessment Noted Time PHQ-9 Depression Total Score: 9 02/05/20 24 8:58 AM EDT documented as of this encounter Care Teams Assistant Director Of Plant Operations Relationship Specialty Start Date End Date Carmen Arauz NP [address] [place] [address] PCP - General Family Medicine 09/16/23 documented as of this encounter
--- OUTSIDE RECORDS SUMMARY | 2024-09-30 17:51 | XMS_ITS | Encounter Summary ---
Author Organization [employer] Address [address] [place] [address] Care Team Providers Care Clean In Places Operator Name Role Phone Carmen Arauz NP Primary Care Provider [phone] Reason for Visit * Reason Onset Date Comments Appointment Request 2024 Encounter Details Date Type Department Care Team ([facility] st Contact Info) Description 2024 Telephone [facility] [address] [place], [place] [phone] Emerita Nash DO [address] [place], [place] [phone] Appointment Request Social History Tobacco Use Types [...] requesting a to r/s appt from 08/14/24. Cement Mason Helper advised pt that there is no appt available and told pt that she would be put on a recall for whenever there is a opening. Contact pt at [phone] documented in this encounter Plan of Treatment Upcoming Encounters Date Type Department Care Team (Late st Contact Info) Description 10/19/2024 2:30 PM EDT Office Visit [facility] [address] [place] [address] Carmen Arauz NP [address] [place] [address] documented as of this encounter Visit Diagnoses Not on filedocumented in this encounter Additional Health Concerns Assessment Noted Time PHQ-9 Depression Total Score: 9 02/05/20 24 8:58 AM EDT documented as of this encounter Care Teams Clean In Places Operator Relationship Specialty Start Date End Date Carmen Arauz NP [address] [place] [address] PCP - General Family Medicine 09/16/23 documented as of this encounter
--- OUTSIDE RECORDS SUMMARY | 2024-09-30 17:51 | XMS_ITS | Encounter Summary ---
Author Organization [employer] Address [address] [place] [address] Care Team Providers Care Grinder Hardboard Name Role Phone Carmen Arauz NP Primary Care Provider [phone] Reason for Visit * Reason Onset Date Comments Nurse Triage 06/27/2023 TelephoneCall 06/27/2023 Encounter Details Date Type Department Care Team ([facility] st Contact Info) Description 06/27/2023 Telephone [facility] [address] [place] [address] Judith Parker MD [address] [place], [place] [phone] Nurse Triage; TelephoneCall Social History Tobacco Use [...] pt is having. Please contact pt at [phone] * Telephone Encounter - Petrona Felix RN - 06/27/2023 4:33 PM EST Called pt. She states that she is looking for an appt. With PCP. Pt. Is seeing pain management and they want to start doing back injections. Pt. States I used to get back injections when I lived in [place] and the injections do not work . [...] PM EDT Office Visit [facility] [address] [place] [address] Carmen Arauz NP [address] [place] [address] documented as of this encounter Visit Diagnoses Not on filedocumented in this encounter Additional Health Concerns Assessment Noted Time PHQ-9 Depression Total Score: 0 01/19/20 23 9:07 AM EDT documented as of this encounter Care Teams Grinder Hardboard Relationship Specialty Start Date End Date Carmen Arauz NP [address] [place] [address] PCP - General Family Medicine 09/16/23 Alla Oliveira Group Worker 07/11/23 09/16/23 documented as of this encounter
--- OUTSIDE RECORDS SUMMARY | 2024-09-30 17:51 | XMS_ITS | Encounter Summary ---
Author Organization [employer] Address [address] [place] [address] Care Team Providers Care Glass Checker Name Role Phone Carmen Arauz NP Primary Care Provider [phone] Reason for Visit * Reason Onset Date Comments Med Refill 09/10/2024 Encounter Details Date Type Department Care Team ([facility] st Contact Info) Description 09/10/2024 Refill [facility] [address] [place] [address] Carmen Arauz NP [address] [place] [address] Social History Tobacco Use Types Packs/Day Years [...] Office Visit [facility] [address] [place] [address] Carmen Arauz NP [address] [place] [address] documented as of this encounter Visit Diagnoses Not on filedocumented in this encounter Additional Health Concerns Assessment Noted Time PHQ-9 Depression Total Score: 9 02/05/20 24 8:58 AM EDT documented as of this encounter Care Teams Glass Checker Relationship Specialty Start Date End Date Carmen Arauz NP [address] [place] [address] PCP - General Family Medicine 09/16/23 documented as of this encounter
--- OUTSIDE RECORDS SUMMARY | 2024-09-30 17:51 | XMS_ITS | Encounter Summary ---
Author Organization [employer] Address [address] [facility] 7t [place] [address] Care Team Providers Care Imcu Nurse Name Role Phone Carmen Arauz NP Primary Care Provider [phone] Reason for Visit * Reason Onset Date Comments Med Refill 09/10/2024 Encounter Details Date Type Department Care Team (Late st Contact Info) Description 09/10/2024 Refill [facility] [address] [place], [place] [phone] Carmen Arauz NP [address] [place] [address] Hyperpigmentation of skin Social History Tobacco Use [...] Description 10/19/2024 2:30 PM EDT Office Visit [facility] [address] [place] [address] Carmen Arauz NP [address] [place] [address] documented as of this encounter Visit Diagnoses Diagnosis Hyperpigmentation of skin Other dyschromia documented in this encounter Additional Health Concerns Assessment Noted Time PHQ-9 Depression Total Score: 9 02/05/20 24 8:58 AM EDT documented as of this encounter Care Teams Imcu Nurse Relationship Specialty Start Date End Date Caremn Arauz NP [address] [place] [address] PCP - General Family Medicine 09/16/23 documented as of this encounter
--- OUTSIDE RECORDS SUMMARY | 2024-09-30 17:51 | XMS_ITS | Encounter Summary ---
Author Organization [employer] Address [address] [place] [address] Care Team Providers Care Cuprous Chloride Helper Name Role Phone Carmen Arauz NP Primary Care Provider [phone] Reason for Visit * Reason Onset Date Comments Med Refill 04/15/2024 Encounter Details Date Type Department Care Team ([facility] st Contact Info) Description 04/15/2024 Refill [facility]INE [address] [place] [address] Judith Parker MD [address] [place] [address] Social History Tobacco Use Types Packs/Day Years [...] Description 10/19/2024 2:30 PM EDT Office Visit [facility] MED[facility]INE [address] [place] [address] Carmen Arauz NP [address] [place] [address] documented as of this encounter Visit Diagnoses Not on filedocumented in this encounter Additional Health Concerns Assessment Noted Time PHQ-9 Depression Total Score: 9 02/05/20 24 8:58 AM EDT documented as of this encounter Care Teams Cuprous Chloride Helper Relationship Specialty Start Date End Date Carmen Arauz NP [address] [place] [address] PCP - General Family Medicine 09/16/23 documented as of this encounter
--- OUTSIDE RECORDS SUMMARY | 2024-09-30 17:51 | XMS_ITS | Encounter Summary ---
Author Organization [employer] Address [address] [place] [address] Care Team Providers Care Magazine Journalist Name Role Phone Carmen Arauz NP Primary Care Provider [phone] Reason for Visit * Reason Onset Date Comments Med Refill 04/15/2024 Encounter Details Date Type Department Care Team (Late st Contact Info) Description 04/15/2024 Refill [facility] [address] [place], [place] [phone] Carmen Arauz NP [address] [place], [place] [phone] Lumbar spondylosis; Lumbar radiculopathy Social History Tobacco [...] Description 10/19/2024 2:30 PM EDT Office Visit [facility] [address] [place] [address] Carmen Arauz NP [address] [place] [address] documented as of this encounter Visit Diagnoses Diagnosis Lumbar spondylosis Lumbosacral spondylosis without myelopathy Lumbar radiculopathy Thoracic or lumbosacral neuritis or radiculitis, unspecified documented in this encounter Additional Health Concerns Assessment Noted Time PHQ-9 Depression Total Score: 9 02/05/20 24 8:58 AM EDT documented as of this encounter Care Teams Magazine Journalist Relationship Specialty Start Date End Date Carmen Arauz NP [address] [place] [address] PCP - General Family Medicine 09/16/23 documented as of this encounter
--- OUTSIDE RECORDS SUMMARY | 2024-09-30 17:51 | XMS_ITS | Encounter Summary ---
Author Organization [employer] Address [address] [facility] [address] [place] [address] Care Team Providers Care Hot Knife Cutter Name Role Phone Carmen Arauz NP Primary Care Provider [phone] Reason for Visit * Reason Onset Date Comments returning phone call 08/13/2022 Encounter Details Date Type Department Care Team ([facility] st Contact Info) Description 08/13/2022 Telephone [facility] MED[facility]INE [address] [place], [place] [phone] Judith Parker MD [address] [place] [address] returning phone call Social History Tobacco Use [...] Task was 08/13/2022 Please contact pt at [phone] documented in this encounter Plan of Treatment Upcoming Encounters Date Type Department Care Team (Late st Contact Info) Description 10/19/2024 2:30 PM EDT Office Visit [facility] MED[facility] [address] [place] [address] Carmen Arauz NP [address] [place] [address] documented as of this encounter Visit Diagnoses Not on filedocumented in this encounter Care Teams Hot Knife Cutter Relationship Specialty Start Date End Date Carmen Arauz NP [address] [place] [address] PCP - General Family Medicine 09/16/23 Alla Oliveira Hog Killer 07/11/23 09/16/23 documented as of this encounter
--- OUTSIDE RECORDS SUMMARY | 2024-09-30 17:51 | XMS_ITS | Encounter Summary ---
Author Organization [employer] Address [address] [facility] 7t [place] [address] Care Team Providers Care Collar Turner Operator Name Role Phone Carmen Arauz NP Primary Care Provider [phone] Encounter Details Date Type Department Care Team ([facility] Contact Info) Description 08/10/2022 Abstract [facility] MEDICINE [address] [place] [phone] Judith Parker MD [address] [place] [phone] Social History Tobacco Use Types Packs/Day Years [...] Upcoming Encounters Date Type Department Care Team ([facility] Contact Info) Description 10/19/2024 2:30 PM EDT Office Visit [facility] [address] [place] [phone] Carmen Arauz NP [address] [place], [place] [phone] documented as of this encounter Visit Diagnoses Not on filedocumented in this encounter Care Teams Collar Turner Operator Relationship Specialty Start Date End Date Carmen Arauz NP [address] [place] [address] PCP - General Family Medicine 09/16/23 Alla Oliveira Supervisor [employer] 07/11/23 09/16/23 documented as of this encounter
--- OUTSIDE RECORDS SUMMARY | 2024-09-30 17:51 | XMS_ITS | Clinical Summary ---
Author Organization [employer] Address [address] [facility] 7t [place] [address] Care Team Providers Care Faculty Instructor Name Role Phone Carmen Arauz NP Primary Care Provider [phone] Allergies Active Allergy Reactions Criticality Noted Date [...] status of the Xolair. F/u with new boiler riveter. ER precautions discussed. Pt sgrees with the plan. Assessment & Plan (09/16/2023 11:46 AM EDT): PRD 20 mg x 5d, counseled to discuss with boiler riveter (appt next month) re adjusting Xolair dose vs changing to another med so that she doesn't end up using PRD that often. Patient is aware of side effects of penitentiary use of steroids. DC Zyrtec and use desloratadine Continue Singulair FU with new PCP. Assessment & Plan (01/18/2023 2:16 PM EDT): Do not miss upcoming appointment with clerical specialist PT1 for visit will be provided Assessment & Plan (08/30/2022 9:35 AM EDT): Continue loratadine, singular, prescription for prednisone. Left message for PA specilist for status of the Xolair. F/u with new boiler riveter. ER precautions discussed. Pt sgrees with the [...] Type Department Care Team Description 09/15/2024 Telephone [facility] MEDICINE [address] [place] [address] Carmen Arauz NP 09/15/2024 Refill [facility] WALK-IN CENTER [address] [place] [address] Carmen Arauz NP 09/15/2024 Refill [facility] [address] [place] [address] Ashwini Hogue MD 09/14/2024 11:00 AM EDT Office Visit [facility] MEDICINE [address] [place] [address] Joyce [place] MD Lumbar radiculopathy, chronic (Primary Dx); Dietary counseling; Exercise counseling; Overweight 09/14/2024 Travel 09/14/2024 Telephone [facility] MEDICINE [address] [place] [address] Carmen Arauz NP Appointment Request 2024 Telephone [facility] MEDICINE [address] [place] [address] Emerita Nash DO Appointment Request 09/10/2024 Refill [facility] [address] [place] [address] Carmen Arauz NP 09/10/2024 Refill [facility] [address] [place] [address] Carmen Arauz NP Lumbar spondylosis; Lumbar radiculopathy; Mild persistent asthma without complication 09/10/2024 Refill [facility] MEDICINE [address] [place] [address] Carmen Arauz NP Hyperpigmentation of skin 09/10/2024 Refill [facility] [address] [place] [address] Ashwini Hogue MD 09/07/2024 Outside Procedure [facility] OPTOMETRY [address] [place] [address] Guillermo, Irene, OD Presbyopia (Primary Dx) 09/04/2024 9:15 AM EDT Office Visit [facility] OPTOMETRY [address] [place] [address] GuillermoAndrewn, OD 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) 09/03/2024 Telephone [facility] MEDICINE [address] [place] [address] Carmen Arauz NP Mondays Chronic Pain Group 08/26/2024 Telephone [facility] MEDICINE [address] [place] [address] Carmen Arauz NP Saturday Chronic Pain Group 08/21/2024 Population Health Risk Score [facility] () Department [address] [place] [phone] Provider, Population Health Generic 08/07/2024 Patient Outreach [facility] [address] [place] [address] Carmen Arauz NP Pre-visit Planning (SDOR unable to reach [facility]) 08/06/2024 Refill [facility] [address] [place] [address] Carmen Arauz NP 08/05/2024 Telephone [facility] MEDICINE [address] [place] [address] Carmen Arauz NP Scheduling for pain group 07/23/2024 Telephone [facility] OPTOMETRY [address] [place] [address] GuillermoIrene fitzgerald, MANISHA 07/21/2024 Refill [facility] WALK[facility]IN CENTER [address] [place], [place] [phone] Ashwini Hogue MD 07/07/2024 1:45 PM EST Office Visit [facility] MEDICINE [address] [place] [address] Carmen Arauz NP Hyperpigmentation of skin (Primary Dx); Lumbar radiculopathy, chronic 07/02/2024 Telephone [facility] MEDICINE [address] [place], [place] [phone] Tonya Canela MA TP request from Last 3 Months Immunizations Name Administration [...] Description 10/19/2024 2:30 PM EDT Office Visit [facility] MEDICINE [address] [place], [place] [phone] Carmen Arauz NP [address] [place], [place] [phone] Health Maintenance Due Date Last Done Comments [...] - PCV) 09/12/1995 Influenza Vaccine (#1) 2024 Alcohol/Substance Use Screening 12/10/2024 12/11/2023 Depression Screening [...] EDT Narrative 11/04/2023 11:24 AM EDT ? [facility] ? [address] ?[place] [address] ? Mammography Report ? Signed ? Patient: Tien,Franchesca ?MR#: [id number] ?? 88 ? : 1975 ?Acct:[id number] ? Age/Sex: 48 / F ?ADM Date: 10/08/23 ? Loc: HO.MAMMO ? Attending Dr: Carmen Arauz TONE REGULATOR ? Ordering Physician: Carmen Arauz TONE REGULATOR ?Results: 1Negati ?? ve ? Date of Service: 10/08/23 ?Follow Up: 1 Year From Orig ?? inal Mammogram ? Procedure(s): MM tomosynthesis screening BI ?? Accession Number(s): [id number] ? cc: Regla,Carmen B TONE REGULATOR ? EXAMINATION: ?? MM SCREENING DIGITAL BREAST TOMOSYNTHESIS, BILATERAL ? CLINICAL INFORMATION: ? Screening. Asymptomatic. ? COMPARISON: ?? Mammography: This study is compared with breast imaging dating back to ?? 2016. ? TECHNIQUE: ?? Digital breast tomosynthesis is [...] 11/04/231119 ? DD/ 1040 ? TD/TT: ? Set Builder: ? Procedure Note Jayjay, Image - 11/04/2023 [facility] [address] [place] [address] Mammography Report Signed Patient: Franchesca ChauhanMR#: [id number] 88 : 1975Acct:[id number] Age/Sex: 48 / FADM Date: 10/08/23 Loc: HO.MAMMO Attending Dr: Carmen Arauz TONE REGULATOR Ordering Physician: Carmen Arauz NPResults: 1Negati ve Date of Service: 10/08/23Follow Up: 1 Year From Orig inal Mammogram Procedure(s): MM tomosynthesis screening BI Accession Number(s): [id number] cc: Carmen Arauz TONE REGULATOR EXAMINATION: MM SCREENING DIGITAL BREAST TOMOSYNTHESIS, BILATERAL [...] in OV> 11/04/23 1120 DD/ 1040 TD/TT: Set Builder: us Carmen Arauz NP IMG BI PROCEDURES Final Result * Hepatitis C Antibody Reflex (01/31/2023 8:50 AM EDT) Hepatitis C Antibody Nonreactive Nonreactive [facility] Comment:Antibodies to HCV no t detected; does not exclude early acuteHCV infection. 01/31/2023 8:50 AM EDT 01/31/2023 11:11 AM EDT us Judith Sibley MD LAB BLOOD ORDERABLES Final Result [facility] [address] [place] [address] [phone] * HIV Ab/Ag ([facility]) (01/31/2023 8:50 AM EDT) HIV AB/AG Nonreactive Nonreactive [facility] Comment:HIV-1 p24 Ag and/or HIV-1/HIV-2 Ab not detected.A test result that is nonreactive does not exclude thepossibility of exposure to or infection with HIV-1 and/orHIV-2. Nonreactive results in this assay for individualswith prior exposure to HIV-1 and/or HIV-2 may be due toantigen and antibody levels that are below the limit ofdetection of this assay.The Florez Driller Helper HIV Ag/Ab Combo assay result andsupplemental assay results should be interpreted inconjunction with the patient's clinical presentation,history and other laboratory results. If the results areinconsistent with clinical evidence, additional testing issuggested to confirm the result. 01/31/2023 8:50 AM EDT 01/31/2023 11:11 AM EDT us Judith Sibley MD LAB BLOOD ORDERABLES Final Result Performing Organization Address [facility] Co de Phone Number [facility] [address] [place] [phone] * Lipid Panel, Standard (01/31/2023 8:50 AM EDT) Triglycerides 79 <150 mg/dL [facility] Comment:Desirable Triglyceri de: less than 150 mg/dLBorderline High Triglyceride 150-199 mg/dLHigh Triglyceride: 200-499 mg/dLVery High Triglyceride: greater than or equal to 5OO mg/dL Cholesterol 150 <200 mg/dL [facility] Comment:Desirable Cholestero l: less than 200 mg/dLBorderline High Cholesterol: 200-239 mg/dLHigh Cholesterol: greater than 239 mg/dL LDL Cholesterol Calculated 86 <100 mg/dL [facility] Comment:Desirable LDL: less than 100 mg/dLNear Optimal/Above Optimal LDL: 110- 129 mg/dLBorderline High LDL: 130-159 mg/dLHigh LDL: 160-189 mg/dLVery High LDL: greater than or equal to 190 mg/dL HDL Cholesterol 49 >40 mg/dL [facility] Comment:Desirable HDL: great er than 40 mg/dL Note: This HDL assay may give artificially low results in patients with liver disease. Blood Venous blood specimen / Unknown 01/31/2023 8:50 AM EDT 01/31/2023 11:11 AM EDT us Judith Sibley MD LAB BLOOD ORDERABLES Final Result Performing Organization Address [facility] Co de Phone Number [facility] [address] [place] [address] [phone] * THINPREP TIS PAP AND HPV [...] with computer assisted technology. [facility] Credit Checker : SEE COMMENT [facility] Comment: SXA, CT(ASCP) CT screening location: [address] ??[address] HPV nRNA E6/E7 Not Detected Not Detected [facility] Comment: Methodology: Log Loader Helper-Mediated Amplification This assay detects E6/E7 viral messenger RNA (mRNA) from 14 high-risk HPV types (16,18,31,33,35,39,45,51,52,56,58,59,66,68). ? Cervical sources are required for HPV testing. If a vaginal source from a patient who has had a total hysterectomy with removal of cervix was ?? submitted, please contact the testing laboratory for alternative testing options. ?? For additional information, please refer to http://education.DUHEM/faq/URW748p3 (This link if provided for information/ educational [...] Most Recently Relevant to Health Maintenance Insurance [facility] [place] [id number] [place] [id number] Care Teams Faculty Instructor Relationship Specialty Start Date End Date Carmen Arauz NP [address] [place] [phone] PCP - General Family Medicine 09/16/23
--- OUTSIDE RECORDS SUMMARY | 2024-09-30 17:51 | XMS_ITS | Encounter Summary ---
Author Organization [employer] Address [address] 7t [place] [address] Care Team Providers Care Housefellow Name Role Phone Carmen Arauz NP Primary Care Provider [phone] Reason for Visit * Reason Onset Date Comments triage 08/16/2022 Encounter Details Date Type Department Care Team ([facility] st Contact Info) Description 08/16/2022 Telephone [facility] MEDICINE [address] [place], [place] [phone] Judith Parker MD [address] [place], [place] [phone] triage Social History Tobacco Use Types Packs/Day [...] Description 10/19/2024 2:30 PM EDT Office Visit [facility] MEDICINE [address] [place] [address] Carmen Arauz NP [address] [place] [address] documented as of this encounter Visit Diagnoses Not on filedocumented in this encounter Care Teams Housefellow Relationship Specialty Start Date End Date Carmen Arauz NP [address] [place] [address] PCP - General Family Medicine 09/16/23 Alla Oliveira Cartridge Belt Puncher 07/11/23 09/16/23 documented as of this encounter
--- OUTSIDE RECORDS SUMMARY | 2024-09-30 17:51 | XMS_ITS | Encounter Summary ---
Author Organization [employer] Address [address] [facility] [address] 7[address] [place] [address] Care Team Providers Care Stope Miner Name Role Phone Carmen Arauz NP Primary Care Provider [phone] Reason for Visit * Reason Onset Date Comments Med Refill 04/15/2024 Encounter Details Date Type Department Care Team ([facility] st Contact Info) Description 04/15/2024 Refill [facility] MEDICINE [address] [place], [place] [phone] Name, MD Harvinder [address] [place] [address] Mild persistent asthma without complication Social History [...] Description 10/19/2024 2:30 PM EDT Office Visit [facility] MEDICINE [address] [place] [address] Carmen Arauz NP [address] [place] [address] documented as of this encounter Visit Diagnoses Diagnosis Mild persistent asthma without complication documented in this encounter Additional Health Concerns Assessment Noted Time PHQ-9 Depression Total Score: 9 02/05/20 24 8:58 AM EDT documented as of this encounter Care Teams Stope Miner Relationship Specialty Start Date End Date Carmen Arauz NP [address] [place] [address] PCP - General Family Medicine 09/16/23 documented as of this encounter
--- OUTSIDE RECORDS SUMMARY | 2024-09-30 17:51 | XMS_ITS | Encounter Summary ---
Author Organization [employer] Address [address] [facility] [facility] [address] [place] [address] Care Team Providers Care Store Protection Specialist Name Role Phone Carmen Arauz NP Primary Care Provider [phone] Encounter Details Date Type Department Care Team ([facility] st Contact Info) Description 05/25/2024 Telephone [facility] MEDICINE [address] [place], [place] [phone] Carmen Arauz NP [address] [place] [address] Social History Tobacco Use Types Packs/Day Years [...] Description 10/19/2024 2:30 PM EDT Office Visit [facility] MEDICINE [address] [place] [address] Carmen Arauz NP [address] [place] [address] documented as of this encounter Visit Diagnoses Not on filedocumented in this encounter Additional Health Concerns Assessment Noted Time PHQ-9 Depression Total Score: 9 02/05/20 24 8:58 AM EDT documented as of this encounter Care Teams Store Protection Specialist Relationship Specialty Start Date End Date Carmen Arauz NP [address] [place] [address] PCP - General Family Medicine 09/16/23 documented as of this encounter
--- OUTSIDE RECORDS SUMMARY | 2024-09-30 17:51 | XMS_ITS | Encounter Summary ---
Author Organization [employer] Address [address] [place] [address] Care Team Providers Care Asbestos Removal Supervisor Name Role Phone Carmen Arauz NP Primary Care Provider [phone] Reason for Visit * Reason Onset Date Comments Med Refill 09/10/2024 Encounter Details Date Type Department Care Team ([facility] st Contact Info) Description 09/10/2024 Refill [facility] MED & PEDS [address] [place] [address] Ashwini Hogue MD [address] [place] [address] Social History Tobacco Use Types Packs/Day Years [...] 2:30 PM EDT Office Visit [facility] MEDICINE [address] [place] [address] Carmen Arauz NP [address] [place] [address] documented as of this encounter Visit Diagnoses Not on filedocumented in this encounter Additional Health Concerns Assessment Noted Time PHQ-9 Depression Total Score: 9 02/05/20 24 8:58 AM EDT documented as of this encounter Care Teams Asbestos Removal Supervisor Relationship Specialty Start Date End Date Carmen Arauz NP [address] [place] [address] PCP - General Family Medicine 09/16/23 documented as of this encounter
== END 2024-09-30 16:43 | disposition home or self-care (01) ==
LOC: HO.HWSM 15:04
PROVIDERS: PCP Nurse Practitioner Family; Visit Provider Advanced Practice Midwife
DX: Z01.419 Encounter for gynecological examination (general) (routine) without abnormal findings (principal); N95.1 Menopausal and female climacteric states; G89.29 Other chronic pain
CPT/HCPCS: 99386; 99459

== ENCOUNTER 2024-10-08 07:06 | Outpatient (REF) | payer MEDICAID, SELFPAY ==
--- OUTSIDE RECORDS SUMMARY | 2024-10-08 07:08 | XMS_ITS | Encounter Summary ---
Author Organization [employer] Address [address] [facility] [address] [facility] [address] 7[address] [place] [address] Care Team Providers Care Continuous Improvement Consultant Name Role Phone Carmen Arauz NP Primary Care Provider [phone] Reason for Visit * Reason Onset Date Comments Med Refill 10/22/2023 Encounter Details Date Type Department Care Team (Late st Contact Info) Description 10/22/2023 Refill [facility] 230 [place] [address] Payton Mcintyre MD 230 [place] [address] Social History Tobacco Use Types Packs/Day Years [...] 2:30 PM EDT Office Visit [facility] 230 [place] [address] Carmen Arauz NP 230 [place] [address] documented as of this encounter Visit Diagnoses Not on filedocumented in this encounter Additional Health Concerns Assessment Noted Time PHQ-9 Depression Total Score: 0 01/19/20 23 9:07 AM EDT documented as of this encounter Care Teams Continuous Improvement Consultant Relationship Specialty Start Date End Date Carmen Arauz NP 230 [place] [address] PCP - General Family Medicine 09/16/23 documented as of this encounter
--- OUTSIDE RECORDS SUMMARY | 2024-10-08 07:08 | XMS_ITS | Encounter Summary ---
Author Organization [employer] Address [address] 7[address] [place] [address] Care Team Providers Care Can Inspector Name Role Phone Carmen Arauz NP Primary Care Provider [phone] Reason for Visit * Reason Onset Date Comments Med Refill 11/25/2023 Encounter Details Date Type Department Care Team (Late st Contact Info) Description 11/25/2023 Refill [facility] 230 [place] [address] Payton Mcintyre MD 230 [place] [address] Social History Tobacco Use Types Packs/Day Years [...] [facility] 230 [place] [address] Carmen Arauz NP 230 [place] [address] documented as of this encounter Visit Diagnoses Not on filedocumented in this encounter Additional Health Concerns Assessment Noted Time PHQ-9 Depression Total Score: 0 01/19/20 23 9:07 AM EDT documented as of this encounter Care Teams Can Inspector Relationship Specialty Start Date End Date Carmen Arauz NP 230 [place] [address] PCP - General Family Medicine 09/16/23 documented as of this encounter
--- OUTSIDE RECORDS SUMMARY | 2024-10-08 07:08 | XMS_ITS | Encounter Summary ---
Author Organization [employer] Address [address] [facility] [address] [place] [address] Care Team Providers Care Timekeeper Supervisor Name Role Phone Carmen Arauz NP Primary Care Provider [phone] Reason for Visit * Reason Onset Date Comments Med Refill 06/22/2024 Encounter Details Date Type Department Care Team ([facility] st Contact Info) Description 06/22/2024 Refill [facility] 230 [place] [address] Ashwini Hogue MD [address] [place] [address] Social History Tobacco Use Types Packs/Day Years [...] Description 10/19/2024 2:30 PM EDT Office Visit [facility] 230 [place] [address] Carmen Arauz NP 230 [place] [address] documented as of this encounter Visit Diagnoses Not on filedocumented in this encounter Additional Health Concerns Assessment Noted Time PHQ-9 Depression Total Score: 9 02/05/20 24 8:58 AM EDT documented as of this encounter Care Teams Timekeeper Supervisor Relationship Specialty Start Date End Date Carmen Arauz NP 230 [place] [address] PCP - General Family Medicine 09/16/23 documented as of this encounter
--- OUTSIDE RECORDS SUMMARY | 2024-10-08 07:08 | XMS_ITS | Encounter Summary ---
Author Organization [employer] Address [address] [facility] [address] 7[address] [place] [address] Care Team Providers Care Analyst Food And Beverage Name Role Phone Carmen Arauz NP Primary Care Provider [phone] Reason for Visit * Reason Onset Date Comments Med Refill 11/25/2023 Encounter Details Date Type Department Care Team (Late st Contact Info) Description 11/25/2023 Refill [facility] 230 [place], [place] [phone] Judith Parker MD 230 [place], [place] [phone] Mild persistent asthma without complication Social History [...] 2:30 PM EDT Office Visit [facility] 230 [place] [address] Carmen Arauz NP 230 [place] [address] documented as of this encounter Visit Diagnoses Diagnosis Mild persistent asthma without complication documented in this encounter Additional Health Concerns Assessment Noted Time PHQ-9 Depression Total Score: 0 01/19/20 23 9:07 AM EDT documented as of this encounter Care Teams Analyst Food And Beverage Relationship Specialty Start Date End Date Carmen Arauz NP 230 [place] [address] PCP - General Family Medicine 09/16/23 documented as of this encounter
--- OUTSIDE RECORDS SUMMARY | 2024-10-08 07:08 | XMS_ITS | Encounter Summary ---
Author Organization [employer] Address [address] [facility] [address] [place] [address] Care Team Providers Care It Consulting Director Name Role Phone Carmen Arauz NP Primary Care Provider Reason for Visit * Reason Onset Date Comments Med Refill 06/22/2024 Encounter Details Date Type Department Care Team ([facility] st Contact Info) Description 06/22/2024 Refill [facility] 230 [place], [place] [phone] Carmen Arauz NP 230 [place], [place] [phone] Mild persistent asthma without complication Social History [...] TC from pt asking about referral for DISTRIBUTION TECH. Nurse informed pt that a message has been sent to her provider, but the referral has not been placed yet. Pt verbalized understanding and denies anyfurther questions or concerns at this time. documented in this encounter Plan of Treatment Upcoming Encounters Date Type Department Care Team (Late st Contact Info) Description 10/19/2024 2:30 PM EDT Office Visit [facility] 230 [place] [address] Carmen Arauz NP 230 [place] [address] documented as of this encounter Visit Diagnoses Diagnosis Mild persistent asthma without complication documented in this encounter Additional Health Concerns Assessment Noted Time PHQ-9 Depression Total Score: 9 02/05/20 8:58 AM EDT documented as of this encounter Care Teams It Consulting Director Relationship Specialty Start Date End Date Carmen Arauz NP [address] [place] [address] PCP - General Family Medicine 09/16/23 documented as of this encounter
--- OUTSIDE RECORDS SUMMARY | 2024-10-08 07:08 | XMS_ITS | Encounter Summary ---
Author Organization [employer] Address [address] [facility] [address] [facility] [address] [place] [address] Care Team Providers Care Construction Project Assistant Name Role Phone Carmen Arauz NP Primary Care Provider [phone] Reason for Visit * Reason Onset Date Comments Med Refill 12/15/2023 Encounter Details Date Type Department Care Team ([facility] st Contact Info) Description 12/15/[address] [facility] 230 [place], [place] [phone] Payton Mcintyre MD 230 [place] [address] Social History Tobacco Use Types Packs/Day Years [...] [facility] 230 [place] [address] Carmen Arauz NP 230 [place] [address] documented as of this encounter Visit Diagnoses Not on filedocumented in this encounter Additional Health Concerns Assessment Noted Time PHQ-9 Depression Total Score: 0 01/19/20 23 9:07 AM EDT documented as of this encounter Care Teams Construction Project Assistant Relationship Specialty Start Date End Date Carmen Arauz NP 230 [place] [address] PCP - General Family Medicine 09/16/23 documented as of this encounter
--- OUTSIDE RECORDS SUMMARY | 2024-10-08 07:08 | XMS_ITS | Patient Health Record ---
Author Organization [facility] Address [address] [place] [address] Care Team Providers Care Virtual Recruiter Name Role Phone Mirnaholdensonidoaiden Agustín Primary Care Provider Mark ospina Allergies Allergen (clinical drug ingredient) Drug/Non Drug Allergy documented on EMR Reaction Allergy Type Onset Date Status Penicillin Unknown Drug Allergy Active Reason For Referral No Information Medications Medication SIG (Take, Route, Fr equency, Duration) Notes Start Date End Date Status Meloxicam 7.5 MG 1 tablet Orally Once a day with food; Duration: 30 day(s) 09/12/2021 Not-Ta dahlia Ibuprofen 600 MG 1 tablet with food o r milk as needed Orally every 8 hrs Active Social History Tobacco Use: Social History Observation Description Date Details (start date - stop date) Current Smoker NA - NA Social History Tobacco Use: Social Info Question Answer Notes Tobacco Use/Smoking Are you a current smoker Problems Problem Type SNOMED Code ICD Code Onset Dates Problem Status W/U Status Risk Notes Problem Chronic pain syndrome (912945112) Chronic pain syndrome (G89.4) Active confirmed Problem 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 Problem Lumbar spondylosis (632098492) Lumbar spondylosis (M47.816) Active confirmed Problem Cervical spondylosis (844513104) Cervical spondylosis (M47.812) Active confirmed Problem Degeneration of lumbar intervertebral disc (67062092) Degenerative disc disease, lumbar (M51.36) Active confirmed Plan Of Treatment No Information Insurance Providers Payer Name Payer Address Payer Phone Subscriber Number Group Number Insured Name Patient Relationship to Insured Coverage Start Date Coverage End Date [employer] [place]ICA[place] [address] [address] [place] [phone] [id number] Franchesca Chauhan Self - patient is the insured Medical (General) History Medical History History ICD Code Patient denies Surgical History Surgery Date(Month/Year) Left wrist fusion ARSENIO L4,5 DIAGNOSTIC MBB (75%) 11/14/2021
--- OUTSIDE RECORDS SUMMARY | 2024-10-08 07:08 | XMS_ITS | Clinical Summary ---
Author Organization [facility] Address [address] [place] [phone] Phone Care Team Providers Care Bowling Floor Manager Name Role Phone Physician, Pcp Unknown Primary [...] topic Insurance MEDICAID - [place] Care Teams Bowling Floor Manager Relationship Specialty Start Date End Date Physician, Pcp Unknown PCP - General 06/01/24
--- OUTSIDE RECORDS SUMMARY | 2024-10-08 07:08 | XMS_ITS | Encounter Summary ---
Author Organization [employer] Address [address] [facility] [address] [place] [address] Care Team Providers Care Sales Representative Wire Rope Name Role Phone Carmen Arauz NP Primary Care Provider [phone] Reason for Visit * Reason Onset Date Comments Med Refill 02/18/2024 Encounter Details Date Type Department Care Team ([facility] st Contact Info) Description 02/18/2024 Refill [facility] MED[facility]INE 230 [place], [place] [phone] Payton Mcintyre MD 230 [place] [address] Social History Tobacco Use Types Packs/Day Years [...] Description 10/19/2024 2:30 PM EDT Office Visit [facility] 230 [place] [address] Carmen Arauz NP 230 [place] [address] documented as of this encounter Visit Diagnoses Not on filedocumented in this encounter Additional Health Concerns Assessment Noted Time PHQ-9 Depression Total Score: 9 02/05/20 24 8:58 AM EDT documented as of this encounter Care Teams Sales Representative Wire Rope Relationship Specialty Start Date End Date Carmen Arauz NP 230 [place] [address] PCP - General Family Medicine 09/16/23 documented as of this encounter
--- OUTSIDE RECORDS SUMMARY | 2024-10-08 07:08 | XMS_ITS | Encounter Summary ---
Author Organization [employer] Address [address] [facility] 7t [place] [address] Care Team Providers Care Telesales Specialist Name Role Phone Carmen Arauz NP Primary Care Provider [phone] Encounter Details Date Type Department Care Team (Late Contact Info) Description 09/03/2022 Telephone [facility] [address] [place] [address] [phone] Judith Parker MD 230 [place], [place] [phone] Social History Tobacco Use Types Packs/Day Years [...] Visit [facility] [address] [place] [address] [phone] Carmen Arauz NP 230 [place] [address] documented as of this encounter Visit Diagnoses Not on filedocumented in this encounter Care Teams Telesales Specialist Relationship Specialty Start Date End Date Carmen Arauz NP [address] [place] [address] PCP - General Family Medicine 09/16/23 Alla Oliveira Commissioned Police Officer 07/11/23 09/16/23 documented as of this encounter
--- OUTSIDE RECORDS SUMMARY | 2024-10-08 07:09 | XMS_ITS | Clinical Summary ---
Author Organization [employer] Address [address] [facility] 7t [place] [address] Care Team Providers Care Soap Grinder Name Role Phone Carmen Arauz NP Primary Care Provider [phone] Allergies Active Allergy Reactions Criticality Noted Date [...] status of the Xolair. F/u with new transfer knitter. ER precautions discussed. Pt sgrees with the plan. Assessment & Plan (09/16/2023 11:46 AM EDT): PRD 20 mg x 5d, counseled to discuss with transfer knitter (appt next month) re adjusting Xolair dose vs changing to another med so that she doesn't end up using PRD that often. Patient is aware of side effects of detention use of steroids. DC Zyrtec and use desloratadine Continue Singulair FU with new PCP. Assessment & Plan (01/18/2023 2:16 PM EDT): Do not miss upcoming appointment with report specialist PT1 for visit will be provided Assessment & Plan (08/30/2022 9:35 AM EDT): Continue loratadine, singular, prescription for prednisone. Left message for PA specilist for status of the Xolair. F/u with new transfer knitter. ER precautions discussed. Pt sgrees with the [...] Encounters Date Type Department Care Team Description 09/30/2024 Orders Only GENERIC EXTERNAL DATA DEPARTMENT Provider, Generic External Data 09/15/2024 Telephone [facility] [address] [place] [phone] Carmen Arauz NP 09/15/2024 Refill [facility] [address] [place] [address] Carmen Arauz NP 09/15/2024 Refill [facility] PEDS [address] [place] [address] Ashwini Hogue MD 09/14/2024 11:00 AM EDT Office Visit [facility] [address] [place] [address] Joyce Birmingham MD Lumbar radiculopathy, chronic (Primary Dx); Dietary counseling; Exercise counseling; Overweight 09/14/2024 Travel 09/14/2024 Telephone [facility] [address] [place] [address] 12589 Carmen Arauz NP Appointment Request 2024 Telephone [facility] [address] [place] [address] 13973 Emerita Nash DO Appointment Request 09/10/2024 Refill [facility] [address] [place] [address] Carmen Arauz NP 09/10/2024 Refill [facility] [address] [place] [address] Carmen Arauz NP Lumbar spondylosis; Lumbar radiculopathy; Mild persistent asthma without complication 09/10/2024 Refill [facility] [address] [place] [address] 79[address] Carmen Arauz NP Hyperpigmentation of skin 09/10/2024 Refill [facility] [address] [place] [address] Ashwini Hogue MD 09/07/2024 Outside Procedure [facility] [address] [place] [address] GuillermoAndrew fitzgeraldn, OD Presbyopia (Primary Dx) 09/04/2024 9:15 AM EDT Office Visit [facility] [address] [place] [address] Irene Li, OD 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) 09/03/2024 Telephone [facility] [address] [place] [address] Carmen Arauz NP Mondays Chronic Pain Group 08/26/2024 Telephone [facility] [address] [place] [address] Carmen Arauz NP Saturday Chronic Pain Group 08/21/2024 Population Health Risk Score Community [facility] Department [address] [place] [phone] Provider, Population Health Generic 08/07/2024 Patient Outreach [facility] [address] [place] [address] Carmen Arauz NP Pre-visit Planning (SDOH unable to reach LVM) 08/06/2024 Refill [facility] [address] [place] [address] Carmen Arauz NP 08/05/2024 Telephone [facility] [address] [place] [address] Carmen Arauz NP Scheduling for pain group 07/23/2024 Telephone [facility] [address] [place], [place] [phone] Irene Li, OD 07/21/2024 Refill [facility] [address] [place], [place] [phone] Ashwini Hogue MD from Last 3 Months Immunizations Name Administration [...] Description 10/19/2024 2:30 PM EDT Office Visit [facility] [address] [place], [place] [phone] Carmen Arauz NP [address] [place] [address] Health Maintenance Due Date Last Done Comments [...] 12/11/2023 Depression Screening 02/04/2025 02/05/2024, 02/05/20 24 SDOH Screening 07/07/2025 07/07/2024 Tobacco Screening 09/14/2025 09/14/2024 Mammogram 10/07/2025 10/08/2023 Zoster Vaccines (1 of 2) 2026 Pap Smear 10/01/2027 09/30/2024, 04/02/2022 Lipid Panel 02/01/2028 01/31/2023, 04/02/2022 Cervical Cancer Screening 09/30/2029 HPV/Cotest 09/30/2029 09/30/2024, 04/02/2022 DTaP/Tdap/Td Vaccines (2 - Td or [...] Procedure Name Priority Date/Time Associated Diagnosis Comments PAP SMEAR Routine 09/30/2024 3:41 PM EDT HPV DNA, LOW/HIGH RISK Routine 3:41 PM EDT BI MAMMOGRAM SCREENING TOMOSYNTHESIS BILATERAL Routine 10/08/2023 10:40 AM EDT Healthcare maintenance HEPATITIS C ANTIBODY REFLEX Routine 01/31/2023 8:50 AM EDT HIV ANTIBODY/ANTIGEN ([place] D[facility]) Routine 01/31/2023 8:50 AM EDT LIPID PANEL, STANDARD Routine 01/31/2023 8:50 AM EDT Health care maintenance from Last 3 Months or Most Recently Relevant to Health Maintenance Results * HPV DNA, Low/High Risk (09/30/2024 3:41 PM EDT) HPV High Risk Negative Negative [facility] HPV Genotype 16 Negative Negative [facility] HPV Genotype 18 Negative Negative [facility] Comment:HPV testing performe d at [facility] (CLIA#[id number]), [address] [place] [id number].Testing for HPV was performed using the Cristian PAM 6800system. The presence of HPV in the female genital tract isassociated with a number of diseases, including cervicalcarcinoma. The HPV DNA high risk pool tests for HPV 31, 33,35, 39, 45, 51, 52, 56, 58, 59, 66 and 68. The testing forHPV 16 and 18 genotypes has also been performed. A positiveresult indicates detection of nucleic acid sequences fromone or more subtypes, whereas a negative result indicatessuch sequences were not detected. 09/30/2024 3:41 PM EDT 10/01/2024 11:22 AM EDT us Generic External Data Provider LAB BLOOD ORDERAB LES Final Result Performing Organization Address City/State/[facility] Co de Phone Number [facility] [address] [place] [phone] * Pap Smear (09/30/2024 3:41 PM EDT) 09/30/2024 3:41 PM EDT 10/01/2024 11:22 AM EDT Narrative [facility] - 10/06/2024 10:50 AM EDT ----- ------- Name: Franchesca Chauhan ? Age/Sex: 49/F ? : 1975 Unit#: [id number] ?? Attend Dr: Lynne Connor CNM ?Re09/30/24 ?Status: DEP REF ? Location: HO.LNP ?Disch: ? ----- ------- SPEC : [id number] ? RECD: 10/01/24 ? STATUS: ??SOUT ? REQ NUM: [id number] ? KAELA: 09/30/24-1541 ? SUBM DR: Lynne Connor CNM ? ENTERED: ??10/01/24-1131 ?SP TYPE: Pap Smr ?OTHR DR: Carmen Arauz PATRON ATTENDANT ? ORDERED: ??Pap Smear ? Interpretation ?? Satisfactory for evaluation. ?? Negative for intraepithelial lesion or malignancy. ? HPV High Risk: ??Negative ? HPV Genotyping 16: ??Negative ?? HPV Genotyping 18: ??Negative ?Clinical Information LMP: no menses Previous PAP test:Unknown date/findings ? Material Received ?? ThinPrep-Cervical Copies To: ?? Carmen Arauz PATRON ATTENDANT ?? [facility] ?? [address] [facility] ?? [place] [address] ?? [phone] ?? Lynne Connor CNM ?? [facility] ?? [address] [facility], 3rd Floor ?? [place] [address] ?? [phone] ----- ------- Signed (signature on file) JENNIFER Shaw (ASCP) 10/06/24 1050 ? ----- ------- ? END OF REPORT ? us Generic External Data Provider LAB CYTOLOGY CATRACHITO PRIEST Final Result [facility] [address] [place] [address] [phone] * BI Mammogram Screening Tomosynthesis Bilateral (10/08/2023 10:40 AM EDT) Anatomical Region Laterality Modality Breast Bilateral Mammography 10/08/2023 10:4 0 AM EDT Narrative 11/04/2023 11:24 AM EDT ? [facility] ? [address] ?[place] [address] ? Mammography Report ? Signed ? Patient: Tien,Franchesca ?MR#: [id number] ?? 88 ? : 1975 ?Acct:[id number] ? Age/Sex: 48 / F ?ADM Date: 10/08/23 ? Loc: HO.MAMMO ? Attending Dr: Carmen Arauz PATRON ATTENDANT ? Ordering Physician: Carmen Arauz PATRON ATTENDANT ?Results: 1Negati ?? ve ? Date of Service: 10/08/23 ?Follow Up: 1 Year From Orig ?? inal Mammogram ? Procedure(s): MM tomosynthesis screening BI ?? Accession Number(s): [id number] ? cc: Carmen Arauz PATRON ATTENDANT ? EXAMINATION: ?? MM SCREENING DIGITAL BREAST [...] by Kusum Chester MD in OV> ? 05//24 1120 ? DD/ 1040 ? TD/TT: ? Color Control Supervisor: ? Procedure Note Jayjay, Image - 11/04/2023 Sadie [facility] [address] [place] [address] Mammography Report Signed Patient: Franchesca ChauhanMR#: [id number] 87 : 1975Acct:[id number] Age/Sex: 48 / FADM Date: 10/08/23 Loc: HO.MAMMO Attending Dr: Carmen Arauz PATRON ATTENDANT Ordering Physician: Carmen Arauz NPResults: 1Negati ve Date of Service: 10/08/23Follow Up: 1 Year From Orig inal Mammogram Procedure(s): MM tomosynthesis screening BI Accession Number(s): [id number] cc: Carmen Arauz PATRON ATTENDANT EXAMINATION: MM SCREENING DIGITAL BREAST TOMOSYNTHESIS, BILATERAL [...] in OV> 11/04/23 1120 DD/ 1040 TD/TT: Color Control Supervisor: us Carmen Arauz NP IMG BI PROCEDURES Final Result * Hepatitis C Antibody Reflex (01/31/2023 8:50 AM EDT) Hepatitis C Antibody Nonreactive Nonreactive [facility] Comment:Antibodies to HCV no t detected; does not exclude early acuteHCV infection. 01/31/2023 8:50 AM EDT 01/31/2023 11:11 AM EDT us Judith Sibley MD LAB BLOOD ORDERABLES Final Result [facility] [address] [place] [phone] * HIV Ab/Ag ([facility]) (01/31/2023 8:50 AM EDT) HIV AB/AG Nonreactive Nonreactive [facility] Comment:HIV-1 p24 Ag and/or HIV-1/HIV-2 Ab not detected.A test result that is nonreactive does not exclude thepossibility of exposure to or infection with HIV-1 and/orHIV-2. Nonreactive results in this assay for individualswith prior exposure to HIV-1 and/or HIV-2 may be due toantigen and antibody levels that are below the limit ofdetection of this assay.The [employer]ore[employer] Activated Sludge Attendant HIV Ag/Ab Combo assay result andsupplemental assay results should be interpreted inconjunction with the patient's clinical presentation,history and other laboratory results. If the results areinconsistent with clinical evidence, additional testing issuggested to confirm the result. 01/31/2023 8:50 AM EDT 01/31/2023 11:11 AM EDT us Judith Sibley MD LAB BLOOD ORDERABLES Final Result Performing Organization Address [facility] Co de Phone Number [facility] [address] [place] [phone] * Lipid Panel, Standard (01/31/2023 8:50 AM EDT) Triglycerides 79 <150 mg/dL [facility] Comment:Desirable Triglyceri de: less than 150 mg/dLBorderline High Triglyceride 150-199 mg/dLHigh Triglyceride: 200-499 mg/dLVery High Triglyceride: greater than or equal to 5OO mg/dL Cholesterol 150 <200 mg/dL [facility] Comment:Desirable Cholestero l: less than 200 mg/dLBorderline High Cholesterol: 200-239 mg/dLHigh Cholesterol: greater than 239 mg/dL LDL Cholesterol Calculated 86 <100 mg/dL [facility] Comment:Desirable LDL: less than 100 mg/dLNear Optimal/Above Optimal LDL: 110- 129 mg/dLBorderline High LDL: 130-159 mg/dLHigh LDL: 160-189 mg/dLVery High LDL: greater than or equal to 190 mg/dL HDL Cholesterol 49 >40 mg/dL [facility] Comment:Desirable HDL: great er than 40 mg/dL Note: This HDL assay may give artificially low results in patients with liver disease. Blood Venous blood specimen / Unknown 01/31/2023 8:50 AM EDT 01/31/2023 11:11 AM EDT us Judith Sibley MD LAB BLOOD ORDERABLES Final Result Performing Organization Address [facility]/ZIP Co de Phone Number [facility] [address] [place] [address] [phone] from Last 3 Months or Most Recently Relevant to Health Maintenance Insurance [facility] STANDARD Care Teams Soap Grinder Relationship Specialty Start Date End Date Carmen Arauz NP [address] [place] [phone] PCP - General Family Medicine 09/16/23
--- OUTSIDE RECORDS SUMMARY | 2024-10-08 07:09 | XMS_ITS | Encounter Summary ---
Author Organization [employer] Address [address] 7t [place] [address] Care Team Providers Care Machine Binding Folder Name Role Phone Carmen Arauz NP Primary Care Provider [phone] Reason for Visit * Reason Onset Date Comments Nurse Triage 06/27/2023 TelephoneCall 06/27/2023 Encounter Details Date Type Department Care Team ([facility] st Contact Info) Description 06/27/2023 Telephone [facility] [address] [place] [address] Judith Parker MD [address] [place], [place] [phone] Nurse Triage; TelephoneCall Social History Tobacco Use [...] pt is having. Please contact pt at [phone] * Telephone Encounter - Petrona Felix RN - 06/27/2023 4:33 PM EST Called pt. She states that she is looking for an appt. With PCP. Pt. Is seeing pain management and they want to start doing back injections. Pt. States I used to get back injections when I lived in [place] and the injections do not work . [...] 10/19/2024 2:30 PM EDT Office Visit [facility] [address] [place] [address] Carmen Arauz NP [address] [place] [address] documented as of this encounter Visit Diagnoses Not on filedocumented in this encounter Additional Health Concerns Assessment Noted Time PHQ-9 Depression Total Score: 0 01/19/20 23 9:07 AM EDT documented as of this encounter Care Teams Machine Binding Folder Relationship Specialty Start Date End Date Carmen Arauz NP [address] [place] [address] PCP - General Family Medicine 09/16/23 Alla Oliveira Fleet Mechanic 07/11/23 09/16/23 documented as of this encounter
--- OUTSIDE RECORDS SUMMARY | 2024-10-08 07:09 | XMS_ITS | Encounter Summary ---
Author Organization [employer] Address [address] [facility] 7t [place] [address] Care Team Providers Care Epic Stork Specialists Name Role Phone Carmen Arauz NP Primary Care Provider [phone] Reason for Visit * Reason Onset Date Comments returning phone call 08/13/2022 Encounter Details Date Type Department Care Team ([facility] st Contact Info) Description 08/13/2022 Telephone [facility] MEDICINE [address] [place], [place] [phone] Judith Praker MD [address] [place] [address] returning phone call Social History Tobacco Use [...] Task was 08/13/2022 Please contact pt at [phone] documented in this encounter Plan of Treatment Upcoming Encounters Date Type Department Care Team (Late st Contact Info) Description 10/19/2024 2:30 PM EDT Office Visit [facility] [address] [place] [address] Carmen Arauz NP [address] [place] [address] documented as of this encounter Visit Diagnoses Not on filedocumented in this encounter Care Teams Epic Stork Specialists Relationship Specialty Start Date End Date Carmen Arauz NP [address] [place] [address] PCP - General Family Medicine 09/16/23 Alla Oliveira Marine Pipefitter 07/11/23 09/16/23 documented as of this encounter
--- OUTSIDE RECORDS SUMMARY | 2024-10-08 07:09 | XMS_ITS | Encounter Summary ---
Author Organization [employer] Address [address] [facility] [address] 7[address] [place] [address] Care Team Providers Care Examiner Rating Clerk Name Role Phone Carmen Arauz NP Primary Care Provider [phone] Reason for Visit * Reason Onset Date Comments Nurse Triage 05/26/2024 Encounter Details Date Type Department Care Team ([facility] st Contact Info) Description 05/26/2024 Telephone [facility] [address] [place], [place] [phone] Carmen Arauz, YANNA [address] [place], [place] [phone] Nurse Triage Social History Tobacco Use Types [...] Triage call Pt was last seen in [facility] 05/25/24. Pt has been doing [...] call regarding prior message. Contact pt at [phone] * Telephone Encounter - Adalid Joe - [...] 2:30 PM EDT Office Visit [facility] [address] [place] [address] Carmen Arauz NP [address] [place] [address] documented as of this encounter Visit Diagnoses Not on filedocumented in this encounter Additional Health Concerns Assessment Noted Time PHQ-9 Depression Total Score: 9 02/05/20 24 8:58 AM EDT documented as of this encounter Care Teams Examiner Rating Clerk Relationship Specialty Start Date End Date Carmen Arauz NP [address] [place] [address] PCP - General Family Medicine 09/16/23 documented as of this encounter
--- OUTSIDE RECORDS SUMMARY | 2024-10-08 07:09 | XMS_ITS | Encounter Summary ---
Author Organization [employer] Address [address] [facility] [address] [place] [address] Care Team Providers Care Reject Opener Name Role Phone Carmen Arauz NP Primary Care Provider [phone] Reason for Visit * Reason Onset Date Comments Med Refill 09/10/2024 Encounter Details Date Type Department Care Team ([facility] st Contact Info) Description 09/10/2024 Refill [facility] MED [facility] PEDS [address] [place] [address] Ashwini Hogue MD [address] [place] [address] Social History Tobacco Use Types Packs/Day Years [...] Description 10/19/2024 2:30 PM EDT Office Visit [facility] MEDICINE [address] [place] [address] Carmen Arauz NP [address] [place] [address] documented as of this encounter Visit Diagnoses Not on filedocumented in this encounter Additional Health Concerns Assessment Noted Time PHQ-9 Depression Total Score: 9 02/05/20 24 8:58 AM EDT documented as of this encounter Care Teams Reject Opener Relationship Specialty Start Date End Date Carmen Arauz NP [address] [place] [address] PCP - General Family Medicine 09/16/23 documented as of this encounter
--- OUTSIDE RECORDS SUMMARY | 2024-10-08 07:09 | XMS_ITS | Encounter Summary ---
Author Organization [employer] Address [address] [facility] 7t [place] [address] Care Team Providers Care Chaperone Name Role Phone Carmen Arauz NP Primary Care Provider [phone] Reason for Visit * Reason Onset Date Comments Med Refill 09/10/2024 Encounter Details Date Type Department Care Team (Late st Contact Info) Description 09/10/2024 Refill [facility] MED[facility] [address] [place], [place] [phone] Carmen Arauz NP [address] [place] [address] Hyperpigmentation of skin Social History Tobacco Use [...] 2:30 PM EDT Office Visit [facility] [address] [place] [address] Carmen Arauz NP [address] [place] [address] documented as of this encounter Visit Diagnoses Diagnosis Hyperpigmentation of skin Other dyschromia documented in this encounter Additional Health Concerns Assessment Noted Time PHQ-9 Depression Total Score: 9 02/05/20 24 8:58 AM EDT documented as of this encounter Care Teams Chaperone Relationship Specialty Start Date End Date Carmen Arauz NP [address] [place] [address] PCP - General Family Medicine 09/16/23 documented as of this encounter
--- OUTSIDE RECORDS SUMMARY | 2024-10-08 07:09 | XMS_ITS | Encounter Summary ---
Author Organization [employer] Address [address] 7[address] [place] [address] Care Team Providers Care Manager Aviation Name Role Phone Carmen Arauz NP Primary Care Provider [phone] Encounter Details Date Type Department Care Team ([facility] st Contact Info) Description 05/25/2024 Telephone [facility] MED[facility]INE [address] [place], [place] [phone] Carmen Arauz NP [address] [place] [address] Social History Tobacco Use Types Packs/Day Years [...] Description 10/19/2024 2:30 PM EDT Office Visit [facility] MED[facility] [address] [place] [address] Carmen Arauz NP [address] [place] [address] documented as of this encounter Visit Diagnoses Not on filedocumented in this encounter Additional Health Concerns Assessment Noted Time PHQ-9 Depression Total Score: 9 02/05/20 24 8:58 AM EDT documented as of this encounter Care Teams Manager Aviation Relationship Specialty Start Date End Date Carmen Arauz NP [address] [place] [address] PCP - General Family Medicine 09/16/23 documented as of this encounter
--- OUTSIDE RECORDS SUMMARY | 2024-10-08 07:09 | XMS_ITS | Encounter Summary ---
Author Organization [employer] Address [address] [facility] [address] 7t [place] [address] Care Team Providers Care Portable Track Line Marker Name Role Phone Carmen Arauz NP Primary Care Provider [phone] Reason for Visit * Reason Onset Date Comments Med Refill 04/15/2024 Encounter Details Date Type Department Care Team ([facility] st Contact Info) Description 04/15/2024 Refill [facility] MED[facility] [address] [place] [address] Judith Parker MD [address] [place] [address] Social History Tobacco Use Types Packs/Day Years [...] Description 10/19/2024 2:30 PM EDT Office Visit [facility] MEDICINE [address] [place] [address] Carmen Arauz NP [address] [place] [address] documented as of this encounter Visit Diagnoses Not on filedocumented in this encounter Additional Health Concerns Assessment Noted Time PHQ-9 Depression Total Score: 9 02/05/20 24 8:58 AM EDT documented as of this encounter Care Teams Portable Track Line Marker Relationship Specialty Start Date End Date Carmen Arauz NP [address] [place] [address] PCP - General Family Medicine 09/16/23 documented as of this encounter
--- OUTSIDE RECORDS SUMMARY | 2024-10-08 07:09 | XMS_ITS | Encounter Summary ---
Author Organization [employer] Address [address] 7t [place] [address] Care Team Providers Care Chinchilla Machine Operator Name Role Phone Carmen Arauz NP Primary Care Provider [phone] Encounter Details Date Type Department Care Team ([facility] st Contact Info) Description 05/18/2024 Telephone [facility] [address] [place], [place] [phone] Carmen Arauz NP [address] [place] [address] Social History Tobacco Use Types Packs/Day Years [...] 2:30 PM EDT Office Visit [facility] [address] [place] [address] Carmen Arauz NP [address] [place] [address] documented as of this encounter Visit Diagnoses Not on filedocumented in this encounter Additional Health Concerns Assessment Noted Time PHQ-9 Depression Total Score: 9 02/05/20 24 8:58 AM EDT documented as of this encounter Care Teams Chinchilla Machine Operator Relationship Specialty Start Date End Date Carmen Arauz NP [address] [place] [address] PCP - General Family Medicine 09/16/23 documented as of this encounter
--- OUTSIDE RECORDS SUMMARY | 2024-10-08 07:09 | XMS_ITS | Encounter Summary ---
Author Organization [employer] Address [address] 7t [place] [address] Care Team Providers Care Adhesive Bandage Machine Operator Name Role Phone Carmen Arauz NP Primary Care Provider [phone] Reason for Visit * Reason Onset Date Comments Med Refill 04/15/2024 Encounter Details Date Type Department Care Team ([facility] st Contact Info) Description 04/15/2024 Refill [facility] 230 [place], [place] [phone] Name, MD Harvinder 230 [place] [address] Mild persistent asthma without complication Social History [...] Office Visit [facility] [address] [place] [address] Carmen Arauz NP 230 [place] [address] documented as of this encounter Visit Diagnoses Diagnosis Mild persistent asthma without complication documented in this encounter Additional Health Concerns Assessment Noted Time PHQ-9 Depression Total Score: 9 02/05/20 24 8:58 AM EDT documented as of this encounter Care Teams Adhesive Bandage Machine Operator Relationship Specialty Start Date End Date Carmen Arauz NP 230 [place] [address] PCP - General Family Medicine 09/16/23 documented as of this encounter
--- OUTSIDE RECORDS SUMMARY | 2024-10-08 07:09 | XMS_ITS | Encounter Summary ---
Author Organization [employer] Address [address] 7[address] [place] [address] Care Team Providers Care Steam Tank Operator Name Role Phone Carmen Arauz NP Primary Care Provider [phone] Reason for Visit * Reason Onset Date Comments triage 08/16/2022 Encounter Details Date Type Department Care Team ([facility] st Contact Info) Description 08/16/2022 Telephone [facility] [address] [place], [place] [phone] Judith Parker MD 230 [place], [place] [phone] triage Social History Tobacco Use Types Packs/Day [...] 10/19/2024 2:30 PM EDT Office Visit [facility] [address] [place] [address] Carmen Arauz NP 230 [place] [address] documented as of this encounter Visit Diagnoses Not on filedocumented in this encounter Care Teams Steam Tank Operator Relationship Specialty Start Date End Date Carmen Arauz NP 230 [place] [address] PCP - General Family Medicine 09/16/23 Alla Oliveira Network Pricing Consultant 07/11/23 09/16/23 documented as of this encounter
--- OUTSIDE RECORDS SUMMARY | 2024-10-08 07:09 | XMS_ITS | Encounter Summary ---
Author Organization [employer] Address [address] 7[address] [place] [address] Care Team Providers Care Account Solutions Analyst Name Role Phone Carmen Arauz NP Primary Care Provider [phone] Reason for Visit * Reason Comments Med Refill Encounter Details Date Type Department Care Team ([facility] st Contact Info) Description 05/18/2024 Refill [facility] [place] [facility] 230 [place], [place] [phone] Judith Parker MD [address] [place], [place] [phone] Mild persistent asthma without complication Social History [...] Visit [facility] [address] [place] [address] Carmen Arauz NP 230 [place] [address] documented as of this encounter Visit Diagnoses Diagnosis Mild persistent asthma without complication documented in this encounter Additional Health Concerns Assessment Noted Time PHQ-9 Depression Total Score: 9 02/05/20 24 8:58 AM EDT documented as of this encounter Care Teams Account Solutions Analyst Relationship Specialty Start Date End Date Carmen Arauz NP 230 [place] [address] PCP - General Family Medicine 09/16/23 documented as of this encounter
--- OUTSIDE RECORDS SUMMARY | 2024-10-08 07:09 | XMS_ITS | Encounter Summary ---
Author Organization [employer] Address [address] 7t [place] [address] Care Team Providers Care Survey Field Technician Name Role Phone Carmen Arauz NP Primary Care Provider [phone] Reason for Visit * Reason Onset Date Comments Med Refill 09/10/2024 Encounter Details Date Type Department Care Team ([facility] st Contact Info) Description 09/10/2024 Refill [facility] [address] [place] [address] Carmen Arauz NP [address] [place] [address] Social History Tobacco Use Types Packs/Day Years [...] EDT Office Visit [facility] 230 [place] [address] Carmen Arauz NP 230 [place] [address] documented as of this encounter Visit Diagnoses Not on filedocumented in this encounter Additional Health Concerns Assessment Noted Time PHQ-9 Depression Total Score: 9 02/05/20 24 8:58 AM EDT documented as of this encounter Care Teams Survey Field Technician Relationship Specialty Start Date End Date Carmen Arauz NP 230 [place] [address] PCP - General Family Medicine 09/16/23 documented as of this encounter
--- OUTSIDE RECORDS SUMMARY | 2024-10-08 07:09 | XMS_ITS | Encounter Summary ---
Author Organization [employer] Address [address] [place] [address] Care Team Providers Care Mixer Wet Pour Name Role Phone Carmen Arauz NP Primary Care Provider [phone] Reason for Visit * Reason Onset Date Comments Med Refill 05/15/2024 Encounter Details Date Type Department Care Team ([facility] st Contact Info) Description 05/15/2024 Refill [facility] [address] [place], [place] [phone] Judith Parker MD 230 [place], [place] [phone] Mild intermittent asthma, unspecified whether complicated Social [...] Description 10/19/2024 2:30 PM EDT Office Visit [facility] [address] [place] [address] Carmen Arauz NP 230 [place] [address] documented as of this encounter Visit Diagnoses Diagnosis Mild intermittent asthma, unspecified whether complicated documented in this encounter Additional Health Concerns Assessment Noted Time PHQ-9 Depression Total Score: 9 02/05/20 24 8:58 AM EDT documented as of this encounter Care Teams Mixer Wet Pour Relationship Specialty Start Date End Date Carmen Arauz NP 230 [place] [address] PCP - General Family Medicine 09/16/23 documented as of this encounter
--- OUTSIDE RECORDS SUMMARY | 2024-10-08 07:09 | XMS_ITS | Encounter Summary ---
Author Organization [employer] Address [address] 7[address] [place] [address] Care Team Providers Care Search Optimization Analyst Name Role Phone Carmen Arauz NP Primary Care Provider [phone] Reason for Visit * Reason Onset Date Comments Med Refill 05/17/2023 Encounter Details Date Type Department Care Team (Late st Contact Info) Description 05/17/2023 Refill [facility] 230 [place], [place] [phone] Emerita Nash DO 230 [place], [place] [phone] Social History Tobacco Use Types Packs/Day Years [...] Description 10/19/2024 2:30 PM EDT Office Visit [facility] 230 [place] [address] Carmen Arauz NP [address] [place] [address] documented as of this encounter Visit Diagnoses Not on filedocumented in this encounter Additional Health Concerns Assessment Noted Time PHQ-9 Depression Total Score: 0 01/19/20 23 9:07 AM EDT documented as of this encounter Care Teams Search Optimization Analyst Relationship Specialty Start Date End Date Carmen Arauz NP 230 [place] [address] PCP - General Family Medicine 09/16/23 Alla Oliveira Platen Press Feeder 07/11/23 09/16/23 documented as of this encounter
--- OUTSIDE RECORDS SUMMARY | 2024-10-08 07:09 | XMS_ITS | Encounter Summary ---
Author Organization [employer] Address [address] 7[address] [place] [address] Care Team Providers Care Cement Or Concrete Finishing Supervisor Name Role Phone Carmen Arauz NP Primary Care Provider [phone] Reason for Visit * Reason Onset Date Comments Appointment Request 2024 Encounter Details Date Type Department Care Team ([facility] st Contact Info) Description 2024 Telephone [facility] 230 [place], [place] [phone] Emerita Nash DO 230 [place], [place] [phone] Appointment Request Social History Tobacco Use Types [...] requesting a to r/s appt from 08/14/24. Adoption Manager advised pt that there is no appt available and told pt that she would be put on a recall for whenever there is a opening. Contact pt at [phone] documented in this encounter Plan of Treatment Upcoming Encounters Date Type Department Care Team (Late st Contact Info) Description 10/19/2024 2:30 PM EDT Office Visit [facility] 230 [place] [address] Carmen Arauz NP 230 [place] [address] documented as of this encounter Visit Diagnoses Not on filedocumented in this encounter Additional Health Concerns Assessment Noted Time PHQ-9 Depression Total Score: 9 02/05/20 24 8:58 AM EDT documented as of this encounter Care Teams Cement Or Concrete Finishing Supervisor Relationship Specialty Start Date End Date Carmen Arauz NP 230 [place] [address] PCP - General Family Medicine 09/16/23 documented as of this encounter
--- OUTSIDE RECORDS SUMMARY | 2024-10-08 07:09 | XMS_ITS | Encounter Summary ---
Author Organization [employer] Address [address] 7[address] [place] [address] Care Team Providers Care Rn Advanced Name Role Phone Carmen Arauz NP Primary Care Provider [phone] Reason for Visit * Reason Onset Date Comments Nurse Triage 05/15/2024 Encounter Details Date Type Department Care Team ([facility] st Contact Info) Description 05/15/2024 Telephone [facility] MED[facility]INE [address] [place], [place] [phone] Carmen Arauz, YANNA 230 [place], [place] [phone] Nurse Triage Social History Tobacco Use Types [...] to follow with patient. Patient reaced at [phone]. Protocol Used: Tinnitus (Adult) Protocol-Based Disposition: See [...] caller accepted this outcome. Contact pt at [phone] documented in this encounter Plan of Treatment Upcoming Encounters Date Type Department Care Team (Late st Contact Info) Description 10/19/2024 2:30 PM EDT Office Visit [facility] [address] [place] [address] Carmen Arauz NP 230 [place] [address] documented as of this encounter Visit Diagnoses Not on filedocumented in this encounter Additional Health Concerns Assessment Noted Time PHQ-9 Depression Total Score: 9 02/05/20 8:58 AM EDT documented as of this encounter Care Teams Rn Advanced Relationship Specialty Start Date End Date Carmen Arauz NP 230 [place] [address] PCP - General Family Medicine 09/16/23 documented as of this encounter
--- OUTSIDE RECORDS SUMMARY | 2024-10-08 07:09 | XMS_ITS | Encounter Summary ---
Author Organization [employer] Address [address] [place] [address] Care Team Providers Care Cement Fittings Maker Name Role Phone Carmen Arauz NP Primary Care Provider [phone] Reason for Visit * Reason Onset Date Comments Med Refill 04/15/2024 Encounter Details Date Type Department Care Team (Late st Contact Info) Description 04/15/2024 Refill [facility] 230 [place], [place] [phone] Carmen Arauz NP 230 [place], [place] [phone] Lumbar spondylosis; Lumbar radiculopathy Social History Tobacco [...] [facility] 230 [place] [address] Carmen Arauz NP 230 [place] [address] documented as of this encounter Visit Diagnoses Diagnosis Lumbar spondylosis Lumbosacral spondylosis without myelopathy Lumbar radiculopathy Thoracic or lumbosacral neuritis or radiculitis, unspecified documented in this encounter Additional Health Concerns Assessment Noted Time PHQ-9 Depression Total Score: 9 02/05/20 24 8:58 AM EDT documented as of this encounter Care Teams Cement Fittings Maker Relationship Specialty Start Date End Date Carmen Arauz NP 230 [place] [address] PCP - General Family Medicine 09/16/23 documented as of this encounter
--- OUTSIDE RECORDS SUMMARY | 2024-10-08 07:09 | XMS_ITS | Encounter Summary ---
Author Organization [employer] Address [address] 7t [place] [address] Care Team Providers Care Field Captain Name Role Phone Regla Carmen YANNA Primary Care Provider [phone] Encounter Details Date Type Department Care Team (Late st Contact Info) Description 09/30/2024 Orders Only GENERIC EXTERNAL DATA DEPARTMENT Provider, Generic External Data Social History Tobacco Use Types Packs/Day Years [...] EDT Office Visit [facility] 230 [place], [place] [phone] Carmen Arauz NP 230 [place], [place] [phone] documented as of this encounter Procedures Procedure Name Priority Date/Time Associated Diagnosis Comments HPV DNA, LOW/HIGH RISK Routine 09/30/2024 3:41 PM EDT PAP SMEAR Routine 09/30/2024 3:41 PM EDT documented in this encounter Results * HPV DNA, Low/High Risk (09/30/2024 3:41 PM EDT) HPV High Risk Negative Negative [facility] HPV Genotype 16 Negative Negative [facility] HPV Genotype 18 Negative Negative [facility] Comment:HPV testing performe d at [facility] (CLIA#[id number]), [address] [place] [address].Testing for HPV was performed using the Cristian [...] Provider LAB BLOOD ORDERAB LES Final Result [facility] [address] [place] [phone] * Pap Smear (09/30/2024 3:41 PM EDT) 09/30/2024 3:41 PM EDT 10/01/2024 11:22 AM EDT Narrative [facility] - 10/06/2024 10:50 AM EDT ----- ------- Name: Franchesca Chauhan ? Age/Sex: 49/F ? : 1975 Unit#: [id number] ?? Attend Dr: Lynne Connor CNM ?Re09/30/24 ?Status: DEP REF ? Location: HO.LNP ?Disch: ? ----- ------- SPEC : [id number] ? RECD: 10/01/24-1121 ? STATUS: ??SOUT ? REQ NUM: [id number] ? KAELA: 09/30/24-1541 ? SUBM DR: Lynne Connor CNLacey ? ENTERED: ??10/01/24 ?SP TYPE: Pap Smr ?OTHR DR: Carmen Arauz CAN LABELER ? ORDERED: ??Pap Smear ? Interpretation ?? Satisfactory for evaluation. ?? Negative for intraepithelial lesion or malignancy. ? HPV High Risk: ??Negative ? HPV Genotyping 16: ??Negative ?? HPV Genotyping 18: ??Negative ?Clinical Information LMP: no menses Previous PAP test:Unknown date/findings ? Material Received ?? ThinPrep-Cervical Copies To: ?? Carmen Arauz CAN LABELER ?? [facility] ?? [address] ?? [place] [address] ?? [phone] ?? Lynne Connor CNM ?? [facility] ?? [address] ?? [place] [address] ?? [phone] ----- ------- Signed (signature on file) JENNIFER Shaw ([facility]) 10/06/24 1050 ? ----- ------- ? END OF REPORT ? us Generic External Data Provider LAB CYTOLOGY CATRACHITO PRIEST Final Result [facility] [address] [place] [address] [phone] documented in this encounter Visit Diagnoses Not on filedocumented in this encounter Additional Health Concerns Assessment Noted Time PHQ-9 Depression Total Score: 9 02/05/20 24 8:58 AM EDT documented as of this encounter Care Teams Field Captain Relationship Specialty Start Date End Date Carmen Arauz NP 230 [place] [address] PCP - General Family Medicine 09/16/23 documented as of this encounter
--- OUTSIDE RECORDS SUMMARY | 2024-10-08 07:09 | XMS_ITS | Encounter Summary ---
Author Organization [employer] Address [address] [facility] 7t [place] [address] Care Team Providers Care Flat Hammerer Name Role Phone Carmen Arauz NP Primary Care Provider [phone] Encounter Details Date Type Department Care Team ([facility] Contact Info) Description 08/10/2022 Abstract [facility] MEDICINE [address] [place] [address] [phone] Judith Parker MD [address] [place] [address] [phone] Social History Tobacco Use Types Packs/Day Years [...] Upcoming Encounters Date Type Department Care Team ([facility] Contact Info) Description 10/19/2024 2:30 PM EDT Office Visit [facility] MEDICINE [address] [place] [address] [phone] Carmen Arauz NP 230 [place], [place] [phone] documented as of this encounter Visit Diagnoses Not on filedocumented in this encounter Care Teams Flat Hammerer Relationship Specialty Start Date End Date Carmen Arauz NP [address] [place] [address] PCP - General Family Medicine 09/16/23 Alla Oliveira Sprinkler Driver 07/11/23 09/16/23 documented as of this encounter
== END 2024-10-08 07:07 | disposition home or self-care (01) ==
LOC: CF 07:06
PROVIDERS: Visit Provider Internal Medicine
DX: Z13.89 Encounter for screening for other disorder (principal)

== ENCOUNTER 2024-10-12 09:58 | Outpatient (REF) | payer MEDICAID, SELFPAY ==
--- OUTSIDE RECORDS SUMMARY | 2024-10-12 11:10 | XMS_ITS | Encounter Summary ---
Author Organization [employer] Address [address] 7t [place] [address] Care Team Providers Care Leisure Studies Professor Name Role Phone Carmen Arauz NP Primary Care Provider [phone] Reason for Visit * Reason Onset Date Comments Med Refill 12/15/2023 Encounter Details Date Type Department Care Team ([facility] st Contact Info) Description 12/15/2023 Refill [facility] MED[facility]INE 230 [place], [place] [phone] Payton Mcintyre MD [address] [place] [address] Social History Tobacco Use Types Packs/Day Years [...] Office Visit [facility] MEDICINE [address] [place] [address] Carmen Arauz NP 230 [place] [address] documented as of this encounter Visit Diagnoses Not on filedocumented in this encounter Additional Health Concerns Assessment Noted Time PHQ-9 Depression Total Score: 0 01/19/20 23 9:07 AM EDT documented as of this encounter Care Teams Leisure Studies Professor Relationship Specialty Start Date End Date Carmen Arauz NP 230 [place] [address] PCP - General Family Medicine 09/16/23 documented as of this encounter
--- OUTSIDE RECORDS SUMMARY | 2024-10-12 11:10 | XMS_ITS | Encounter Summary ---
Author Organization [employer] Address [address] 7t [place] [address] Care Team Providers Care Zinc Plating Machine Operator Name Role Phone Carmen Arauz NP Primary Care Provider Reason for Visit * Reason Onset Date Comments Med Refill 06/22/2024 Encounter Details Date Type Department Care Team ([facility] st Contact Info) Description 06/22/[address] [facility] [address] [place] [address] Ashwini Hogue MD [address] [place] [address] Social History Tobacco Use Types Packs/Day Years [...] 10/19/2024 2:30 PM EDT Office Visit [facility] [address] [place] [address] Carmen Arauz NP [address] [place] [address] documented as of this encounter Visit Diagnoses Not on filedocumented in this encounter Additional Health Concerns Assessment Noted Time PHQ-9 Depression Total Score: 9 02/05/20 24 8:58 AM EDT documented as of this encounter Care Teams Zinc Plating Machine Operator Relationship Specialty Start Date End Date Carmen Arauz NP [address] [place] [address] PCP - General Family Medicine 09/16/23 documented as of this encounter
--- OUTSIDE RECORDS SUMMARY | 2024-10-12 11:10 | XMS_ITS | Encounter Summary ---
Author Organization [employer] Address [address] [place] [address] Care Team Providers Care Brine Plant Operator Name Role Phone Carmen Arauz NP Primary Care Provider [phone] Reason for Visit * Reason Onset Date Comments Med Refill 06/22/2024 Encounter Details Date Type Department Care Team ([facility] st Contact Info) Description 06/22/2024 Refill [facility] 230 [place], [place] [phone] Carmen Arauz NP 230 [place], [place] [phone] Mild persistent asthma without complication Social History [...] TC from pt asking about referral for PSYCHIATRIC SPECIALIST. Nurse informed pt that a message has been sent to her provider, but the referral has not been placed yet. Pt verbalized understanding and denies anyfurther questions or concerns at this time. documented in this encounter Plan of Treatment Upcoming Encounters Date Type Department Care Team (Late st Contact Info) Description 10/19/2024 2:30 PM EDT Office Visit [facility] [address] [place] [address] Carmen Arauz NP 230 [place] [address] documented as of this encounter Visit Diagnoses Diagnosis Mild persistent asthma without complication documented in this encounter Additional Health Concerns Assessment Noted Time PHQ-9 Depression Total Score: 9 02/05/20 8:58 AM EDT documented as of this encounter Care Teams Brine Plant Operator Relationship Specialty Start Date End Date Carmen Arauz NP [address] [place] [address] PCP - General Family Medicine 09/16/23 documented as of this encounter
--- OUTSIDE RECORDS SUMMARY | 2024-10-12 11:10 | XMS_ITS | Clinical Summary ---
Author Organization [facility] Address [address] [place] [phone] Phone Care Team Providers Care Test Desk Supervisor Name Role Phone Physician, Pcp Unknown Primary [...] topic Insurance MEDICAID - [place] Care Teams Test Desk Supervisor Relationship Specialty Start Date End Date Physician, Pcp Unknown PCP - General 06/01/24
--- OUTSIDE RECORDS SUMMARY | 2024-10-12 11:10 | XMS_ITS | Encounter Summary ---
Author Organization [employer] Address [address] 7t [place] [address] Care Team Providers Care Rd Lab Technician Name Role Phone Carmen Arauz NP Primary Care Provider [phone] Reason for Visit * Reason Onset Date Comments Med Refill 10/22/2023 Encounter Details Date Type Department Care Team (Late st Contact Info) Description 10/22/2023 Refill [facility] 230 [place] [address] Payton Mcintyre MD 230 [place] [address] Social History Tobacco Use Types Packs/Day Years [...] EDT Office Visit [facility] 230 [place] [address] Carmen Arauz NP 230 [place] [address] documented as of this encounter Visit Diagnoses Not on filedocumented in this encounter Additional Health Concerns Assessment Noted Time PHQ-9 Depression Total Score: 0 01/19/20 23 9:07 AM EDT documented as of this encounter Care Teams Rd Lab Technician Relationship Specialty Start Date End Date Carmen Arauz NP 230 [place] [address] PCP - General Family Medicine 09/16/23 documented as of this encounter
--- OUTSIDE RECORDS SUMMARY | 2024-10-12 11:10 | XMS_ITS | Encounter Summary ---
Author Organization [employer] Address 75 [facility] 7t [place] [address] Care Team Providers Care Non Clinical Advisor Name Role Phone Carmen Arauz NP Primary Care Provider [phone] Encounter Details Date Type Department Care Team (Late Contact Info) Description 09/03/[address] [facility] [address] [place] [address] [phone] Judith Parker MD 230 [place], [place] [phone] Social History Tobacco Use Types Packs/Day Years [...] 10/19/2024 2:30 PM EDT Office Visit [facility] [address] [place] [address] [phone] Carmen Aaruz NP 230 [place] [address] documented as of this encounter Visit Diagnoses Not on filedocumented in this encounter Care Teams Non Clinical Advisor Relationship Specialty Start Date End Date Carmen Arauz NP 230 [place] [address] PCP - General Family Medicine 09/16/23 Alla Oliveira Minute Clerk 07/11/23 09/16/23 documented as of this encounter
--- OUTSIDE RECORDS SUMMARY | 2024-10-12 11:10 | XMS_ITS | Encounter Summary ---
Author Organization [employer] Address [address] [facility] [address] 7t [place] [address] Care Team Providers Care Slicing Machine Operator/Tender Name Role Phone Carmen Arauz NP Primary Care Provider [phone] Reason for Visit * Reason Onset Date Comments Med Refill 02/18/2024 Encounter Details Date Type Department Care Team ([facility] st Contact Info) Description 02/18/[address] [facility] 230 [place], [place] [phone] Payton Mcintyre MD 230 [place] [address] Social History Tobacco Use Types Packs/Day Years [...] Office Visit [facility] 230 [place] [address] Carmen Arauz NP 230 [place] [address] documented as of this encounter Visit Diagnoses Not on filedocumented in this encounter Additional Health Concerns Assessment Noted Time PHQ-9 Depression Total Score: 9 02/05/20 24 8:58 AM EDT documented as of this encounter Care Teams Slicing Machine Operator/Tender Relationship Specialty Start Date End Date Carmen Arauz NP 230 [place] [address] PCP - General Family Medicine 09/16/23 documented as of this encounter
--- OUTSIDE RECORDS SUMMARY | 2024-10-12 11:11 | XMS_ITS | Encounter Summary ---
Author Organization [employer] Address [address] [facility] [address] 7t [place] [address] Care Team Providers Care Labor Relations Supervisor Name Role Phone Carmen Arauz NP Primary Care Provider [phone] Reason for Visit * Reason Onset Date Comments Appointment Request 2024 Encounter Details Date Type Department Care Team ([facility] st Contact Info) Description 2024 Telephone [facility] 230 [place], [place] [phone] Emerita Nash DO 230 [place], [place] [phone] Appointment Request Social History Tobacco Use Types [...] requesting a to r/s appt from 08/14/24. Junior Brand Manager advised pt that there is no appt available and told pt that she would be put on a recall for whenever there is a opening. Contact pt at [phone] documented in this encounter Plan of Treatment Upcoming Encounters Date Type Department Care Team (Late st Contact Info) Description 10/19/2024 2:30 PM EDT Office Visit [facility] 230 [place] [address] Carmen Arauz NP 230 [place] [address] documented as of this encounter Visit Diagnoses Not on filedocumented in this encounter Additional Health Concerns Assessment Noted Time PHQ-9 Depression Total Score: 9 02/05/20 24 8:58 AM EDT documented as of this encounter Care Teams Labor Relations Supervisor Relationship Specialty Start Date End Date Carmen Arauz NP 230 [place] [address] PCP - General Family Medicine 09/16/23 documented as of this encounter
--- OUTSIDE RECORDS SUMMARY | 2024-10-12 11:11 | XMS_ITS | Encounter Summary ---
Author Organization [employer] Address 75 [facility] 7t [place] [address] Care Team Providers Care Hydraulic Specialist Name Role Phone Carmen Arauz NP Primary Care Provider [phone] Reason for Visit * Reason Onset Date Comments returning phone call 08/13/2022 Encounter Details Date Type Department Care Team ([facility] st Contact Info) Description 08/13/2022 Telephone [facility] MED[facility]INE 230 [place] [address] Judith Parker MD 230 [place] [address] returning phone call Social History Tobacco Use [...] Task was 08/13/2022 Please contact pt at [phone] documented in this encounter Plan of Treatment Upcoming Encounters Date Type Department Care Team (Late st Contact Info) Description 10/19/2024 2:30 PM EDT Office Visit [facility]INE 230 [place] [address] Carmen Arauz NP 230 [place] [address] documented as of this encounter Visit Diagnoses Not on filedocumented in this encounter Care Teams Hydraulic Specialist Relationship Specialty Start Date End Date Carmen Arauz NP 230 [place] [address] PCP - General Family Medicine 09/16/23 Alla Oliveira Freelance Patternmaker 07/11/23 09/16/23 documented as of this encounter
--- OUTSIDE RECORDS SUMMARY | 2024-10-12 11:11 | XMS_ITS | Clinical Summary ---
Author Organization [employer] Address 75 [facility] 7t [place] [address] Care Team Providers Care Litigation Specialist Name Role Phone Carmen Arauz NP Primary Care Provider [phone] Allergies Active Allergy Reactions Criticality Noted Date [...] MOUTH TWICE A DAY. 180 tablet 025 Active pantoprazole (Protonix) 40 MG EC [...] and management Abnormal PFTs (pulmonary function tests) 024 Overview (11/08/2023): Last Assessment & Plan: Mild [...] status of the Xolair. F/u with new assistant department manager. ER precautions discussed. Pt sgrees with the plan. Assessment & Plan (09/16/2023 11:46 AM EDT): PRD 20 mg x 5d, counseled to discuss with assistant department manager (appt next month) re adjusting Xolair dose vs changing to another med so that she doesn't end up using PRD that often. Patient is aware of side effects of mcc use of steroids. DC Zyrtec and use desloratadine Continue Singulair FU with new PCP. Assessment & Plan (01/18/2023 2:16 PM EDT): Do not miss upcoming appointment with solar energy specialist PT1 for visit will be provided Assessment & Plan (08/30/2022 9:35 AM EDT): Continue loratadine, singular, prescription for prednisone. Left message for PA specilist for status of the Xolair. F/u with new assistant department manager. ER precautions discussed. Pt sgrees with the [...] DEPARTMENT Provider, Generic External Data 09/15/[address] [address] Carmen Arauz NP 09/15/2024 Refill [facility] [address] [place] [address] Carmen Arauz NP 09/15/2024 Refill [facility] [address] [place] [address] Ashwini Hogue MD 09/14/2024 11:00 AM EDT Office Visit [address] [address] Joyce Birmingham MD Lumbar radiculopathy, chronic (Primary Dx); Dietary counseling; Exercise counseling; Overweight 09/14/2024 Travel 09/14/[address] [address] Carmen Arauz NP Appointment Request [address] [address] Emerita Nash DO Appointment Request 09/10/2024 Refill [facility] [address] [place] [address] Carmen Arauz NP 09/10/2024 Refill [facility] [address] [place] [phone] Carmen Arauz NP Lumbar spondylosis; Lumbar radiculopathy; Mild persistent asthma without complication 09/10/2024 Refill [facility] [address] [place] [address] Carmen Arauz NP Hyperpigmentation of skin 09/10/2024 Refill [facility] [address] [place] [address] Ashwini Hogue MD 09/07/2024 Outside Procedure [facility] [address] [place] [address] Andrew Lin, OD Presbyopia (Primary Dx) 09/04/2024 9:15 AM EDT Office Visit [facility] [address] [place] [address] Irene Li, OD 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) 09/03/2024 Telephone [facility] [address] [place] [address] Carmen Arauz NP Mondays Chronic [facility] Group 08/26/2024 Telephone [facility] [address] [place] [address] Carmen Arauz NP Saturday [facility] 08/21/2024 Population Health Risk Score [facility] ([facility] Department [address] [place] [phone] Provider, Population Health Generic 08/07/2024 Patient Outreach [facility] [address] [place] [address] Carmen Arauz NP Pre-visit Planning (SDOH unable to reach LVM) 08/06/2024 Refill [facility] [address] [place] [address] Carmen Arauz NP 08/05/2024 Telephone [facility] [address] [place] [address] Carmen Arauz NP Scheduling for pain group 07/23/2024 Telephone [facility] [address] [place], [place] [phone] Irene Li OD 07/21/2024 Refill [facility] [address] [place], [place] [phone] Ashwini Hogue MD from Last 3 Months [...] housing situation today? I have jaylagrant hopkins 07/07/[address] you [...] Description 10/19/2024 2:30 PM EDT Office Visit [facility] [address] [place] [address] Carmen Arauz NP 230 [place] [address] Health Maintenance Due Date Last Done Comments [...] 12/10/2024 12/11/2023 Depression Screening 02/04/2025 02/05/2024, 02/05/20 SDOH Screening 07/07/2025 07/07/2024 Tobacco Screening 09/14/2025 [...] PM EDT) HPV High Risk Negative Negative [facility] HPV Genotype 16 Negative Negative [facility] HPV Genotype 18 Negative Negative [facility] Comment:HPV testing performe d at [facility] (CLIA#[id number]), [address] [place] [address].Testing for HPV was performed using the Cristian [...] Provider LAB BLOOD ORDERAB LES Final Result [facility] [address] [place] [phone] * Pap Smear (09/30/2024 3:41 PM EDT) 09/30/2024 3:41 PM EDT 10/01/2024 11:22 AM EDT Narrative [facility] - 10/06/2024 10:50 AM EDT ----- ------- Name: Franchesca Chauhan ? Age/Sex: 49/F ? : 1975 Unit#: [id number] ?? Attend Dr: Lynne Connor CNM ?Re09/30/24 ?Status: DEP REF ? Location: HO.LNP ?Disch: ? ----- ------- SPEC : [id number] ? RECD: 10/01/24-1121 ? STATUS: ??SOUT ? REQ NUM: [id number] ? KAELA: 09/30/24-1540 ? SUBM DR: Lynne Connor CNM ? ENTERED: ??10/01/24-1131 ?SP TYPE: Pap Smr ?OTHR DR: Carmen Arauz HAND TUFTER ? ORDERED: ??Pap Smear ? Interpretation ?? Satisfactory for evaluation. ?? Negative for intraepithelial lesion or malignancy. ? HPV High Risk: ??Negative ? HPV Genotyping 16: ??Negative ?? HPV Genotyping 18: ??Negative ?Clinical Information LMP: no menses Previous PAP test:Unknown date/findings ? Material Received ?? ThinPrep-Cervical Copies To: ?? Carmen Arauz HAND TUFTER ?? [facility] ?? [address] [facility] ?? [place] [address] ?? [phone] ?? Lynne Connor CNM ?? [facility] ?? [address] [facility], 3rd Floor ?? [place] [address] ?? [phone] ----- ------- Signed (signature on file) JENNIFER Shaw (ASCP) 10/06/24 1050 ? ----- ------- ? END OF REPORT ? us Generic External Data Provider LAB CYTOLOGY SIERRAE CEM Final Result [facility] [address] [facility] [place] [address] [phone] * BI Mammogram Screening Tomosynthesis Bilateral (10/08/2023 10:40 AM EDT) Anatomical Region Laterality Modality Breast Bilateral Mammography 10/08/2023 10:4 0 AM EDT Narrative 11/04/2023 11:24 AM EDT ? [facility] ? [address] ?[place] [address] ? Mammography Report ? Signed ? Patient: Tien,Franchesca ?MR#: [id number] ?? 88 ? : 1975 ?Acct:[id number] ? Age/Sex: 48 / F ?ADM Date: //24 ? Loc: HO.MAMMO ? Attending Dr: Carmen B Graef HAND TUFTER ? Ordering Physician: Regla,Carmen B HAND TUFTER ?Results: 1Negati ?? ve ? Date of Service: 10/07/24 ?Follow Up: 1 Year From Orig ?? inal Mammogram ? Procedure(s): MM tomosynthesis screening BI ?? Accession Number(s): [id number] ? cc: Carmen Arauz HAND TUFTER ? EXAMINATION: ?? MM SCREENING DIGITAL BREAST [...] by Kusum Chester MD in OV> ? 11/04/230 ? DD/ 1040 ? TD/TT: ? Necktie Stitcher: ? Procedure Note Ac Ro - 11/04/2023 [facility] [address] [place], [place] [address] Mammography Report Signed Patient: Franchesca ChauhanMR#: [id number] : 1975Acct:[id number] Age/Sex: 48 / FADM Date: 10/08/23 Loc: HO.MAMMO Attending Dr: Carmen Arauz NP Ordering Physician: Carmen Arauz NPResults: 1Negati ve Date of Service: 10/08/23Follow Up: 1 Year From Orig ina Mammogram Procedure(s): MM tomosynthesis screening BI Accession Number(s): [id number] cc: Carmen Arauz HAND TUFTER EXAMINATION: MM SCREENING DIGITAL BREAST TOMOSYNTHESIS, BILATERAL [...] in OV> 11/04/23 1120 DD/ 1040 TD/TT: Necktie Stitcher: us Carmen Arauz NP IMG BI PROCEDURES Final Result * Hepatitis C Antibody Reflex (01/31/2023 8:50 AM EDT) Hepatitis C Antibody Nonreactive Nonreactive [facility] Comment:Antibodies to HCV no t detected; does not exclude early acuteHCV infection. 01/31/2023 8:50 AM EDT 01/31/2023 11:11 AM EDT us Judith Sibley MD LAB BLOOD ORDERABLES Final Result Performing Organization Address City/[facility]/ZIP Co de Phone Number [facility] [address] [place] [address] [phone] * HIV Ab/Ag ([place] GU[place]) (01/31/2023 8:50 AM EDT) HIV AB/AG Nonreactive Nonreactive [facility] Comment:HIV-1 p24 Ag and/or HIV-1/HIV-2 Ab not detected.A test result that is nonreactive does not exclude thepossibility of exposure to or infection with HIV-1 and/orHIV-2. Nonreactive results in this assay for individualswith prior exposure to HIV-1 and/or HIV-2 may be due toantigen and antibody levels that are below the limit ofdetection of this assay.The [employer] Rip Saw Operator HIV Ag/Ab Combo assay result andsupplemental assay results should be interpreted inconjunction with the patient's clinical presentation,history and other laboratory results. If the results areinconsistent with clinical evidence, additional testing issuggested to confirm the result. 01/31/2023 8:50 AM EDT 01/31/2023 11:11 AM EDT us Judith Sibley MD LAB BLOOD ORDERABLES Final Result Performing Organization Address [facility]/ZIP Co de Phone Number [facility] [address] [place] [address] [phone] * Lipid Panel, Standard (01/31/2023 8:50 AM EDT) Triglycerides 79 <150 mg/dL [facility] Comment:Desirable Triglyceri de: less than 150 mg/dLBorderline High Triglyceride 150-199 mg/dLHigh Triglyceride: 200-499 mg/dLVery High Triglyceride: greater than or equal to 5OO mg/dL Cholesterol 150 <200 mg/dL [facility] Comment:Desirable Cholestero l: less than 200 mg/dLBorderline High Cholesterol: 200-239 mg/dLHigh Cholesterol: greater than 239 mg/dL LDL Cholesterol Calculated 86 <100 mg/dL [facility] Comment:Desirable LDL: less than 100 mg/dLNear Optimal/Above Optimal LDL: 110- 129 mg/dLBorderline High LDL: 130-159 mg/dLHigh LDL: 160-189 mg/dLVery High LDL: greater than or equal to 190 mg/dL HDL Cholesterol 49 >40 mg/dL [facility] Comment:Desirable HDL: great er than 40 mg/dL Note: This HDL assay may give artificially low results in patients with liver disease. Blood Venous blood specimen / Unknown 01/31/2023 8:50 AM EDT 01/31/2023 11:11 AM EDT Judith Sibley MD LAB BLOOD ORDERABLES Final Result [facility] [address] [place] [address] [phone] from Last 3 Months or Most Recently Relevant to Health Maintenance Insurance [facility] Care Teams Litigation Specialist Relationship Specialty Start Date End Date Carmen Arauz NP [address] [place] [address] [place] [address] PCP - General Family Medicine 09/16/23
--- OUTSIDE RECORDS SUMMARY | 2024-10-12 11:11 | XMS_ITS | Encounter Summary ---
Author Organization [employer] Address [address] [facility] [address] 7t [place] [address] Care Team Providers Care Olap Developer Name Role Phone Carmen Arauz NP Primary Care Provider [phone] Reason for Visit * Reason Onset Date Comments Med Refill 11/25/2023 Encounter Details Date Type Department Care Team (Late st Contact Info) Description 11/25/2023 Refill [facility] [address] [place] [address] Payton Mcintyre MD 230 [place] [address] Social History Tobacco Use Types Packs/Day Years [...] Office Visit [facility] [address] [place] [address] Carmen Arauz NP 230 [place] [address] documented as of this encounter Visit Diagnoses Not on filedocumented in this encounter Additional Health Concerns Assessment Noted Time PHQ-9 Depression Total Score: 0 01/19/20 23 9:07 AM EDT documented as of this encounter Care Teams Olap Developer Relationship Specialty Start Date End Date Carmen Arauz NP 230 [place] [address] PCP - General Family Medicine 09/16/23 documented as of this encounter
--- OUTSIDE RECORDS SUMMARY | 2024-10-12 11:11 | XMS_ITS | Encounter Summary ---
Author Organization [employer] Address [address] [facility] [address] 7t [place] [address] Care Team Providers Care Project Coordinator Name Role Phone Carmen Arauz NP Primary Care Provider [phone] Reason for Visit * Reason Onset Date Comments Med Refill 04/15/2024 Encounter Details Date Type Department Care Team ([facility] st Contact Info) Description 04/15/2024 Refill [facility] [address] [place] [address] Judith Parker MD [address] [place] [address] Social History Tobacco Use Types Packs/Day Years [...] EDT Office Visit [facility] [address] [place] [address] Carmen Arauz NP [address] [place] [address] documented as of this encounter Visit Diagnoses Not on filedocumented in this encounter Additional Health Concerns Assessment Noted Time PHQ-9 Depression Total Score: 9 02/05/20 24 8:58 AM EDT documented as of this encounter Care Teams Project Coordinator Relationship Specialty Start Date End Date Carmen Arauz NP [address] [place] [address] PCP - General Family Medicine 09/16/23 documented as of this encounter
--- OUTSIDE RECORDS SUMMARY | 2024-10-12 11:11 | XMS_ITS | Encounter Summary ---
Author Organization [employer] Address [address] [facility] [address] [place] [address] Care Team Providers Care Respiratory Care Program Director Name Role Phone Carmen Arauz NP Primary Care Provider [phone] Reason for Visit * Reason Onset Date Comments Nurse Triage 05/15/2024 Encounter Details Date Type Department Care Team ([facility] st Contact Info) Description 05/15/2024 Telephone [facility] [address] [place], [place] [phone] Carmen Arauz, YANNA 230 [place], [place] [phone] Nurse Triage Social History Tobacco Use Types [...] to follow with patient. Patient reaced at [phone]. Protocol Used: Tinnitus (Adult) Protocol-Based Disposition: See [...] caller accepted this outcome. Contact pt at [phone] documented in this encounter Plan of Treatment Upcoming Encounters Date Type Department Care Team (Late st Contact Info) Description 10/19/2024 2:30 PM EDT Office Visit [facility] [address] [place] [address] Carmen Arauz NP 230 [place] [address] documented as of this encounter Visit Diagnoses Not on filedocumented in this encounter Additional Health Concerns Assessment Noted Time PHQ-9 Depression Total Score: 9 02/05/20 8:58 AM EDT documented as of this encounter Care Teams Respiratory Care Program Director Relationship Specialty Start Date End Date Carmen Arauz NP 230 [place] [address] PCP - General Family Medicine 09/16/23 documented as of this encounter
--- OUTSIDE RECORDS SUMMARY | 2024-10-12 11:11 | XMS_ITS | Encounter Summary ---
Author Organization [employer] Address [address] [facility] [facility] [address] 7[address] [place] [address] Care Team Providers Care Supervisor Metal Cans Name Role Phone Carmen Arauz NP Primary Care Provider [phone] Reason for Visit * Reason Onset Date Comments Med Refill 04/15/2024 Encounter Details Date Type Department Care Team (Late st Contact Info) Description 04/15/2024 Refill [facility] 230 [place], [place] [phone] Carmen Arauz NP 230 [place], [place] [phone] Lumbar spondylosis; Lumbar radiculopathy Social History Tobacco [...] Description 10/19/2024 2:30 PM EDT Office Visit [facility] [address] [place] [address] Carmen Arauz NP [address] [place] [address] documented as of this encounter Visit Diagnoses Diagnosis Lumbar spondylosis Lumbosacral spondylosis without myelopathy Lumbar radiculopathy Thoracic or lumbosacral neuritis or radiculitis, unspecified documented in this encounter Additional Health Concerns Assessment Noted Time PHQ-9 Depression Total Score: 9 02/05/20 24 8:58 AM EDT documented as of this encounter Care Teams Supervisor Metal Cans Relationship Specialty Start Date End Date Carmen Arauz NP [address] [place] [address] PCP - General Family Medicine 09/16/23 documented as of this encounter
--- OUTSIDE RECORDS SUMMARY | 2024-10-12 11:11 | XMS_ITS | Encounter Summary ---
Author Organization [employer] Address [address] [facility] [address] [place] [address] Care Team Providers Care Ep Tech Name Role Phone Carmen Arauz NP Primary Care Provider [phone] Encounter Details Date Type Department Care Team ([facility] st Contact Info) Description 05/18/2024 Telephone [facility] 230 [place], [place] [phone] Carmen Arauz NP [address] [place] [address] Social History Tobacco Use Types Packs/Day Years [...] 2:30 PM EDT Office Visit [facility] [address] [place] [address] Carmen Arauz NP [address] [place] [address] documented as of this encounter Visit Diagnoses Not on filedocumented in this encounter Additional Health Concerns Assessment Noted Time PHQ-9 Depression Total Score: 9 02/05/20 24 8:58 AM EDT documented as of this encounter Care Teams Ep Tech Relationship Specialty Start Date End Date Carmen Arauz NP [address] [place] [address] PCP - General Family Medicine 09/16/23 documented as of this encounter
--- OUTSIDE RECORDS SUMMARY | 2024-10-12 11:11 | XMS_ITS | Encounter Summary ---
Author Organization [employer] Address [address] [facility] [address] [place] [address] Care Team Providers Care Online Marketer Name Role Phone Carmen Arauz NP Primary Care Provider [phone] Reason for Visit * Reason Onset Date Comments Med Refill 05/15/2024 Encounter Details Date Type Department Care Team ([facility] st Contact Info) Description 05/15/2024 Refill [facility] [address] [place], [place] [phone] Judith Parker MD 230 [place], [place] [phone] Mild intermittent asthma, unspecified whether complicated Social [...] Office Visit [facility] [address] [place] [address] Carmen Arauz NP 230 [place] [address] documented as of this encounter Visit Diagnoses Diagnosis Mild intermittent asthma, unspecified whether complicated documented in this encounter Additional Health Concerns Assessment Noted Time PHQ-9 Depression Total Score: 9 02/05/20 24 8:58 AM EDT documented as of this encounter Care Teams Online Marketer Relationship Specialty Start Date End Date Carmen Arauz NP 230 [place] [address] PCP - General Family Medicine 09/16/23 documented as of this encounter
--- OUTSIDE RECORDS SUMMARY | 2024-10-12 11:11 | XMS_ITS | Encounter Summary ---
Author Organization [employer] Address [address] 7t [place] [address] Care Team Providers Care Grain Weigher Name Role Phone Carmen Arauz NP Primary Care Provider [phone] Reason for Visit * Reason Onset Date Comments Nurse Triage 06/27/2023 TelephoneCall 06/27/2023 Encounter Details Date Type Department Care Team ([facility] st Contact Info) Description 06/27/[address] [facility] MEDICINE [address] [place] [address] Judith Parker MD 230 [place], [place] [phone] Nurse Triage; TelephoneCall Social History Tobacco Use [...] pt is having. Please contact pt at [phone] * Telephone Encounter - Petrona Felix RN - 06/27/2023 4:33 PM EST Called pt. She states that she is looking for an appt. With PCP. Pt. Is seeing pain management and they want to start doing back injections. Pt. States I used to get back injections when I lived in [place] and the injections do not work . [...] PM EDT Office Visit [facility] MEDICINE [address] [place] [address] Carmen Arauz NP 230 [place] [address] documented as of this encounter Visit Diagnoses Not on filedocumented in this encounter Additional Health Concerns Assessment Noted Time PHQ-9 Depression Total Score: 0 01/19/20 23 9:07 AM EDT documented as of this encounter Care Teams Grain Weigher Relationship Specialty Start Date End Date Carmen Arauz NP 230 [place] [address] PCP - General Family Medicine 09/16/23 Alla Oliveira Financial Data Analyst 07/11/23 09/16/23 documented as of this encounter
--- OUTSIDE RECORDS SUMMARY | 2024-10-12 11:11 | XMS_ITS | Encounter Summary ---
Author Organization [employer] Address [address] 7t [place] [address] Care Team Providers Care Teletype Adjuster Name Role Phone Carmen Arauz NP Primary Care Provider [phone] Reason for Visit * Reason Onset Date Comments Nurse Triage 05/26/2024 Encounter Details Date Type Department Care Team ([facility] st Contact Info) Description 05/26/2024 Telephone [facility] MEDICINE 230 [place], [place] [phone] Carmen Arauz, YANNA 230 [place], [place] [phone] Nurse Triage Social History Tobacco Use Types [...] Triage call Pt was last seen in [facility] 05/25/24. Pt has been doing [...] call regarding prior message. Contact pt at [phone] * Telephone Encounter - Adalid Joe - [...] Visit [facility] MEDICINE [address] [place] [address] Carmen Arauz NP [address] [place] [address] documented as of this encounter Visit Diagnoses Not on filedocumented in this encounter Additional Health Concerns Assessment Noted Time PHQ-9 Depression Total Score: 9 02/05/20 24 8:58 AM EDT documented as of this encounter Care Teams Teletype Adjuster Relationship Specialty Start Date End Date Carmen Arauz NP 230 [place] [address] PCP - General Family Medicine 09/16/23 documented as of this encounter
--- OUTSIDE RECORDS SUMMARY | 2024-10-12 11:11 | XMS_ITS | Encounter Summary ---
Author Organization [employer] Address [address] 7[address] [place] [address] Care Team Providers Care Peoplesoft Crm Developer Name Role Phone Carmen Arauz NP Primary Care Provider Encounter Details Date Type Department Care Team ([facility] st Contact Info) Description 05/25/2024 Telephone [facility] MEDICINE [address] [place], [place] [phone] Carmen Arauz NP 230 [place] [address] Social History Tobacco Use Types Packs/Day Years [...] EDT Office Visit [facility] MEDICINE [address] [place] [address] Carmen Arauz NP [address] [place] [address] documented as of this encounter Visit Diagnoses Not on filedocumented in this encounter Additional Health Concerns Assessment Noted Time PHQ-9 Depression Total Score: 9 02/05/20 24 8:58 AM EDT documented as of this encounter Care Teams Peoplesoft Crm Developer Relationship Specialty Start Date End Date Carmen Arauz NP 230 [place] [address] PCP - General Family Medicine 09/16/23 documented as of this encounter
--- OUTSIDE RECORDS SUMMARY | 2024-10-12 11:11 | XMS_ITS | Encounter Summary ---
Author Organization [employer] Address [address] 7t [place] [address] Care Team Providers Care Orchid Superintendent Name Role Phone Carmen Arauz NP Primary Care Provider [phone] Reason for Visit * Reason Onset Date Comments Med Refill 05/17/2023 Encounter Details Date Type Department Care Team (Late st Contact Info) Description 05/17/2023 Refill [facility] MEDICINE 230 [place], [place] [phone] Emerita Nash DO 230 [place], [place] [phone] Social History Tobacco Use Types Packs/Day Years [...] Description 10/19/2024 2:30 PM EDT Office Visit [facility] MEDICINE [address] [place] [address] Carmen Arauz NP 230 [place] [address] documented as of this encounter Visit Diagnoses Not on filedocumented in this encounter Additional Health Concerns Assessment Noted Time PHQ-9 Depression Total Score: 0 01/19/20 23 9:07 AM EDT documented as of this encounter Care Teams Orchid Superintendent Relationship Specialty Start Date End Date Carmen Arauz NP 230 [place] [address] PCP - General Family Medicine 09/16/23 Alla Oliveira Research Scholar 07/11/23 09/16/23 documented as of this encounter
--- OUTSIDE RECORDS SUMMARY | 2024-10-12 11:11 | XMS_ITS | Encounter Summary ---
Author Organization [employer] Address [address] 7[address] [place] [address] Care Team Providers Care Catering Coordinator Name Role Phone Carmen Arauz NP Primary Care Provider [phone] Reason for Visit * Reason Onset Date Comments Med Refill 04/15/2024 Encounter Details Date Type Department Care Team ([facility] st Contact Info) Description 04/15/2024 Refill [facility] MEDICINE 230 [place], [place] [phone] Name, MD Harvinder 230 [place] [address] Mild persistent asthma without complication Social History [...] Office Visit [facility] MEDICINE [address] [place] [address] Carmen Arauz NP 230 [place] [address] documented as of this encounter Visit Diagnoses Diagnosis Mild persistent asthma without complication documented in this encounter Additional Health Concerns Assessment Noted Time PHQ-9 Depression Total Score: 9 02/05/20 24 8:58 AM EDT documented as of this encounter Care Teams Catering Coordinator Relationship Specialty Start Date End Date Carmen Arauz NP 230 [place] [address] PCP - General Family Medicine 09/16/23 documented as of this encounter
--- OUTSIDE RECORDS SUMMARY | 2024-10-12 11:11 | XMS_ITS | Encounter Summary ---
Author Organization [employer] Address [address] [facility] 7t [place] [address] Care Team Providers Care Water Treatment Plant Mechanic Name Role Phone Carmen Arauz NP Primary Care Provider [phone] Reason for Visit * Reason Onset Date Comments Med Refill 09/10/2024 Encounter Details Date Type Department Care Team (Late st Contact Info) Description 09/10/2024 Refill [facility] MEDICINE 230 [place], [place] [phone] Carmen Arauz NP 230 [place] [address] Hyperpigmentation of skin Social History Tobacco Use [...] EDT Office Visit [facility] MEDICINE [address] [place] [address] Carmen Arauz NP [address] [place] [address] documented as of this encounter Visit Diagnoses Diagnosis Hyperpigmentation of skin Other dyschromia documented in this encounter Additional Health Concerns Assessment Noted Time PHQ-9 Depression Total Score: 9 02/05/20 24 8:58 AM EDT documented as of this encounter Care Teams Water Treatment Plant Mechanic Relationship Specialty Start Date End Date Carmen Arauz NP 230 [place] [address] PCP - General Family Medicine 09/16/23 documented as of this encounter
--- OUTSIDE RECORDS SUMMARY | 2024-10-12 11:11 | XMS_ITS | Encounter Summary ---
Author Organization [employer] Address [address] 7t [place] [address] Care Team Providers Care Director Of Income Tax Name Role Phone Carmen Arauz NP Primary Care Provider [phone] Reason for Visit * Reason Onset Date Comments Med Refill 09/10/2024 Encounter Details Date Type Department Care Team ([facility] st Contact Info) Description 09/10/2024 Refill [facility] [address] [place] [address] Carmen Arauz NP [address] [place] [address] Social History Tobacco Use Types Packs/Day Years [...] Description 10/19/2024 2:30 PM EDT Office Visit [facility] MEDICINE 230 [place] [address] Carmen Arauz NP 230 [place] [address] documented as of this encounter Visit Diagnoses Not on filedocumented in this encounter Additional Health Concerns Assessment Noted Time PHQ-9 Depression Total Score: 9 02/05/20 24 8:58 AM EDT documented as of this encounter Care Teams Director Of Income Tax Relationship Specialty Start Date End Date Carmen Arauz NP 230 [place] [address] PCP - General Family Medicine 09/16/23 documented as of this encounter
--- OUTSIDE RECORDS SUMMARY | 2024-10-12 11:11 | XMS_ITS | Encounter Summary ---
Author Organization [employer] Address [address] [facility] [address] 7t [place] [address] Care Team Providers Care Transmitter Engineer Name Role Phone Fouzia Arauzily YANNA Primary Care Provider [phone] Reason for Visit * Reason Onset Date Comments triage 08/16/2022 Encounter Details Date Type Department Care Team ([facility] st Contact Info) Description 08/16/2022 Telephone [facility] MEDICINE 230 [place], [place] [phone] Judith Parker MD 230 [place], [place] [phone] triage Social History Tobacco Use Types Packs/Day [...] Office Visit [facility] MEDICINE 230 [place] [address] Carmen Arauz NP 230 [place] [address] documented as of this encounter Visit Diagnoses Not on filedocumented in this encounter Care Teams Transmitter Engineer Relationship Specialty Start Date End Date Carmen Arauz NP 230 [place] [address] PCP - General Family Medicine 09/16/23 Alla Oliveira Commercial Construction Superintendent 07/11/23 09/16/23 documented as of this encounter
--- OUTSIDE RECORDS SUMMARY | 2024-10-12 11:11 | XMS_ITS | Encounter Summary ---
Author Organization [employer] Address [address] 7t [place] [address] Care Team Providers Care Braid Folder Name Role Phone Carmen Arauz NP Primary Care Provider [phone] Reason for Visit * Reason Comments Med Refill Encounter Details Date Type Department Care Team ([facility] st Contact Info) Description 05/18/2024 Refill [facility] MEDICINE 230 [place], [place] [phone] Judith Parker MD 230 [place], [place] [phone] Mild persistent asthma without complication Social History [...] Visit [facility] MEDICINE [address] [place] [address] Carmen Arauz NP 230 [place] [address] documented as of this encounter Visit Diagnoses Diagnosis Mild persistent asthma without complication documented in this encounter Additional Health Concerns Assessment Noted Time PHQ-9 Depression Total Score: 9 02/05/20 24 8:58 AM EDT documented as of this encounter Care Teams Braid Folder Relationship Specialty Start Date End Date Carmen Arauz NP 230 [place] [address] PCP - General Family Medicine 09/16/23 documented as of this encounter
--- OUTSIDE RECORDS SUMMARY | 2024-10-12 11:11 | XMS_ITS | Encounter Summary ---
Author Organization [employer] Address [address] [facility] 7t [place] [address] Care Team Providers Care Bilingual Hr Generalist Name Role Phone Carmen Arauz NP Primary Care Provider [phone] Encounter Details Date Type Department Care Team ([facility] Contact Info) Description 08/10/2022 Abstract [facility] MEDICINE [address] [place] [address] [phone] Judith Parker MD [address] [place] [address] [phone] Social History Tobacco Use Types Packs/Day Years [...] Upcoming Encounters Date Type Department Care Team ([facility] Contact Info) Description 10/19/2024 2:30 PM EDT Office Visit [facility] MEDICINE [address] [place] [address] [phone] Carmen Arauz NP 230 [place], [place] [phone] documented as of this encounter Visit Diagnoses Not on filedocumented in this encounter Care Teams Bilingual Hr Generalist Relationship Specialty Start Date End Date Carmen Arauz NP 230 [place] [address] PCP - General Family Medicine 09/16/23 Alla Oliveira Business Intelligence Administrator 07/11/23 09/16/23 documented as of this encounter
--- OUTSIDE RECORDS SUMMARY | 2024-10-12 11:11 | XMS_ITS | Encounter Summary ---
Author Organization [employer] Address [address] 7t [place] [address] Care Team Providers Care Thread Pulling Machine Attendant Name Role Phone Carmen Arauz NP Primary Care Provider [phone] Reason for Visit * Reason Onset Date Comments Med Refill 11/25/2023 Encounter Details Date Type Department Care Team (Late st Contact Info) Description 11/25/2023 Refill [facility] MEDICINE 230 [place], [place] [phone] Judith Parker MD 230 [place], [place] [phone] Mild persistent asthma without complication Social History [...] Office Visit [facility] MEDICINE [address] [place] [address] Carmen Arauz NP 230 [place] [address] documented as of this encounter Visit Diagnoses Diagnosis Mild persistent asthma without complication documented in this encounter Additional Health Concerns Assessment Noted Time PHQ-9 Depression Total Score: 0 01/19/20 23 9:07 AM EDT documented as of this encounter Care Teams Thread Pulling Machine Attendant Relationship Specialty Start Date End Date Carmen Arauz NP 230 [place] [address] PCP - General Family Medicine 09/16/23 documented as of this encounter
--- OUTSIDE RECORDS SUMMARY | 2024-10-12 11:11 | XMS_ITS | Encounter Summary ---
Author Organization [email or web address] Address [address] [facility] [address] 7t [place] [address] Care Team Providers Care Help Desk Associate Name Role Phone Carmen Arauz NP Primary Care Provider [phone] Reason for Visit * Reason Onset Date Comments Med Refill 09/10/2024 Encounter Details Date Type Department Care Team ([facility] st Contact Info) Description 09/10/2024 Refill [facility]S 505 [place] [address] Ashwini Hogue MD 505 [place] [address] Social History Tobacco Use Types Packs/Day Years [...] EDT Office Visit [facility] MEDICINE 230 [place] [address] Carmen Arauz NP 230 [place] [address] documented as of this encounter Visit Diagnoses Not on filedocumented in this encounter Additional Health Concerns Assessment Noted Time PHQ-9 Depression Total Score: 9 02/05/20 24 8:58 AM EDT documented as of this encounter Care Teams Help Desk Associate Relationship Specialty Start Date End Date Carmen Arauz NP 230 [place] [address] PCP - General Family Medicine 09/16/23 documented as of this encounter
== END 2024-10-12 09:59 | disposition home or self-care (01) ==
LOC: HO.MAMMO 09:58
PROVIDERS: PCP Nurse Practitioner Family; Visit Provider Nurse Practitioner Family
DX: Z13.89 Encounter for screening for other disorder (principal)

== ENCOUNTER 2024-10-15 06:18 | Outpatient (REF) | payer MEDICAID, SELFPAY ==
--- NOTE | ~2024-10-15 | FL_ITS ---
EXAMINATION: FL GUIDANCE ONLY HISTORY: M51.369 - Other intervertebral disc degeneration, lumbar region without ... COMPARISON: None available. TECHNIQUE: Fluoroscopy time: 0.1 minutes. Cumulative Dose: 3.01 mGy. DAP: 0.0434 mGym2 Images: 1. FINDINGS: A single fluoroscopic spot film of the lower lumbar spine demonstrate needles and contrast material in the regions of the bilateral L3-4 and L4-5 facet joints. FL/FL guidance in treatment room IMPRESSION: Fluoroscopy during procedure. Please see procedure report for additional information. Electronically signed by: Manuel Noriega MD 10/15/2024 02:25 PM EDT
--- OUTSIDE RECORDS SUMMARY | 2024-10-15 06:21 | XMS_ITS | Encounter Summary ---
Author Organization [employer] Address [address] [facility] 7t [place] [address] Care Team Providers Care Human Resources Executive Assistant Name Role Phone Carmen Arauz NP Primary Care Provider [phone] Reason for Visit * Reason Onset Date Comments Med Refill 04/15/2024 Encounter Details Date Type Department Care Team ([facility] st Contact Info) Description 04/15/2024 Refill [facility] MEDICINE 230 [place], [place] [phone] Judith Parker MD 230 [place] [address] Social History Tobacco Use Types Packs/Day Years [...] 2:30 PM EDT Office Visit [facility] MEDICINE 230 [place] [address] Carmen Arauz NP [address] [place] [address] documented as of this encounter Visit Diagnoses Not on filedocumented in this encounter Additional Health Concerns Assessment Noted Time PHQ-9 Depression Total Score: 9 02/05/20 24 8:58 AM EDT documented as of this encounter Care Teams Human Resources Executive Assistant Relationship Specialty Start Date End Date Carmen Arauz NP 230 [place] [address] PCP - General Family Medicine 09/16/23 documented as of this encounter
--- OUTSIDE RECORDS SUMMARY | 2024-10-15 06:21 | XMS_ITS | Encounter Summary ---
Author Organization [employer] Address [address] 7t [place] [address] Care Team Providers Care Chief Communications Officer Name Role Phone Fouzia Arauzily YANNA Primary Care Provider [phone] Reason for Visit * Reason Onset Date Comments Med Refill 11/25/2023 Encounter Details Date Type Department Care Team (Late st Contact Info) Description 11/25/2023 Refill [facility] MEDICINE 230 [place], [place] [phone] Judith Parker MD 230 [place], [place] [phone] Mild persistent asthma without complication Social History [...] Description 10/19/2024 2:30 PM EDT Office Visit [facility] MEDICINE 230 [place] [address] Carmen Arauz NP 230 [place] [address] documented as of this encounter Visit Diagnoses Diagnosis Mild persistent asthma without complication documented in this encounter Additional Health Concerns Assessment Noted Time PHQ-9 Depression Total Score: 0 01/19/20 23 9:07 AM EDT documented as of this encounter Care Teams Chief Communications Officer Relationship Specialty Start Date End Date Carmen Arauz NP 230 [place] [address] PCP - General Family Medicine 09/16/23 documented as of this encounter
--- OUTSIDE RECORDS SUMMARY | 2024-10-15 06:21 | XMS_ITS | Encounter Summary ---
Author Organization [employer] Address [address] [facility] 7 [place] [address] Care Team Providers Care Field Artillery Officer Name Role Phone Carmen Arauz NP Primary Care Provider [phone] Reason for Visit * Reason Onset Date Comments Appointment Request 2024 Encounter Details Date Type Department Care Team ([facility] st Contact Info) Description 2024 Telephone [facility] MEDICINE 230 [place], [place] [phone] Emerita Nash DO 230 [place], [place] [phone] Appointment Request Social History Tobacco Use Types [...] requesting a to r/s appt from 08/14/24. Mica Sizer advised pt that there is no appt available and told pt that she would be put on a recall for whenever there is a opening. Contact pt at [phone] documented in this encounter Plan of Treatment Upcoming Encounters Date Type Department Care Team (Late st Contact Info) Description 10/19/2024 2:30 PM EDT Office Visit [facility] MEDICINE 230 [place] [address] Carmen Arauz NP 230 [place] [address] documented as of this encounter Visit Diagnoses Not on filedocumented in this encounter Additional Health Concerns Assessment Noted Time PHQ-9 Depression Total Score: 9 02/05/20 24 8:58 AM EDT documented as of this encounter Care Teams Field Artillery Officer Relationship Specialty Start Date End Date Carmen Arauz NP 230 [place] [address] PCP - General Family Medicine 09/16/23 documented as of this encounter
--- OUTSIDE RECORDS SUMMARY | 2024-10-15 06:21 | XMS_ITS | Encounter Summary ---
Author Organization [employer] Address [address] [facility] 7t [place] [address] Care Team Providers Care Histologist Technologist Name Role Phone Carmen Arauz NP Primary Care Provider [phone] Reason for Visit * Reason Onset Date Comments Med Refill 09/10/2024 Encounter Details Date Type Department Care Team ([facility] st Contact Info) Description 09/10/2024 Refill [facility] PEDS [address] [place] [address] Ashwini Hogue MD 505 [place] [address] Social History Tobacco Use Types Packs/Day Years [...] your housing situation today? I have jayla hopikns 07/07/[address] you li [...] EDT Office Visit [facility] MEDICINE 230 [place] [address] Carmen Arauz NP 230 [place] [address] documented as of this encounter Visit Diagnoses Not on filedocumented in this encounter Additional Health Concerns Assessment Noted Time PHQ-9 Depression Total Score: 9 02/05/20 24 8:58 AM EDT documented as of this encounter Care Teams Histologist Technologist Relationship Specialty Start Date End Date Carmen Arauz NP 230 [place] [address] PCP - General Family Medicine 09/16/23 documented as of this encounter
--- OUTSIDE RECORDS SUMMARY | 2024-10-15 06:21 | XMS_ITS | Encounter Summary ---
Author Organization [employer] Address [address] [facility] 7t [place] [address] Care Team Providers Care Dye Maker Name Role Phone Carmen Arauz NP Primary Care Provider [phone] Encounter Details Date Type Department Care Team ([facility] st Contact Info) Description 05/18/2024 Telephone [facility] MEDICINE 230 [place], [place] [phone] Carmen Arauz NP [address] [place] [address] Social History Tobacco Use Types Packs/Day Years [...] Office Visit [facility] MEDICINE [address] [place] [address] Carmen Arauz NP [address] [place] [address] documented as of this encounter Visit Diagnoses Not on filedocumented in this encounter Additional Health Concerns Assessment Noted Time PHQ-9 Depression Total Score: 9 02/05/20 24 8:58 AM EDT documented as of this encounter Care Teams Dye Maker Relationship Specialty Start Date End Date Carmen Arauz NP [address] [place] [address] PCP - General Family Medicine 09/16/23 documented as of this encounter
--- OUTSIDE RECORDS SUMMARY | 2024-10-15 06:21 | XMS_ITS | Encounter Summary ---
Author Organization [employer] Address [address] [facility] [address] [facility] [address] 7t [place] [address] Care Team Providers Care Field Contact Technician Name Role Phone Carmen Arauz NP Primary Care Provider Reason for Visit * Reason Onset Date Comments Nurse Triage 05/26/2024 Encounter Details Date Type Department Care Team ([facility] st Contact Info) Description 05/26/2024 Telephone [facility] MEDICINE 230 [place], [place] [phone] Carmen Arauz NP 230 [place], [place] [phone] Nurse Triage Social History Tobacco Use Types [...] Triage call Pt was last seen in [facility] 05/25/24. Pt has been doing [...] call regarding prior message. Contact pt at [phone] * Telephone Encounter - Adalid Joe - [...] 10/19/2024 2:30 PM EDT Office Visit [facility] MEDICINE 230 [place] [address] Carmen Arauz NP [address] [place] [address] documented as of this encounter Visit Diagnoses Not on filedocumented in this encounter Additional Health Concerns Assessment Noted Time PHQ-9 Depression Total Score: 9 02/05/20 24 8:58 AM EDT documented as of this encounter Care Teams Field Contact Technician Relationship Specialty Start Date End Date Carmen Arauz NP 230 [place] [address] PCP - General Family Medicine 09/16/23 documented as of this encounter
--- OUTSIDE RECORDS SUMMARY | 2024-10-15 06:21 | XMS_ITS | Encounter Summary ---
Author Organization [employer] Address [address] [facility] 7t [place] [address] Care Team Providers Care Payment Collector Name Role Phone Carmen Arauz NP Primary Care Provider [phone] Reason for Visit * Reason Onset Date Comments Nurse Triage 05/15/2024 Encounter Details Date Type Department Care Team ([facility] st Contact Info) Description 05/15/2024 Telephone [facility] MEDICINE [address] [place], [place] [phone] Carmen Arauz NP [address] [place], [place] [phone] Nurse Triage Social History Tobacco Use Types [...] to follow with patient. Patient reaced at [phone]. Protocol Used: Tinnitus (Adult) Protocol-Based Disposition: See [...] caller accepted this outcome. Contact pt at [phone] documented in this encounter Plan of Treatment Upcoming Encounters Date Type Department Care Team (Late st Contact Info) Description 10/19/2024 2:30 PM EDT Office Visit [facility] MED[facility] [address] [place] [address] Carmen Arauz NP [address] [place] [address] documented as of this encounter Visit Diagnoses Not on filedocumented in this encounter Additional Health Concerns Assessment Noted Time PHQ-9 Depression Total Score: 9 02/05/20 8:58 AM EDT documented as of this encounter Care Teams Payment Collector Relationship Specialty Start Date End Date Carmen Arauz NP [address] [place] [address] PCP - General Family Medicine 09/16/23 documented as of this encounter
--- OUTSIDE RECORDS SUMMARY | 2024-10-15 06:21 | XMS_ITS | Encounter Summary ---
Author Organization [employer] Address [address] [facility] 7t [place] [address] Care Team Providers Care Projects Manager Name Role Phone Carmen Arauz NP Primary Care Provider [phone] Reason for Visit * Reason Onset Date Comments Med Refill 12/15/2023 Encounter Details Date Type Department Care Team ([facility] st Contact Info) Description 12/15/2023 Refill [facility] MEDICINE [address] [place], [place] [phone] Payton Mcintyre MD [address] [place], [place] [phone] Social History Tobacco Use Types Packs/Day Years [...] Visit [facility] MEDICINE [address] [place] [address] Carmen Arauz NP [address] [place] [address] documented as of this encounter Visit Diagnoses Not on filedocumented in this encounter Additional Health Concerns Assessment Noted Time PHQ-9 Depression Total Score: 0 01/19/20 23 9:07 AM EDT documented as of this encounter Care Teams Projects Manager Relationship Specialty Start Date End Date Carmen Arauz NP 230 [place] [address] PCP - General Family Medicine 09/16/23 documented as of this encounter
--- OUTSIDE RECORDS SUMMARY | 2024-10-15 06:21 | XMS_ITS | Encounter Summary ---
Author Organization [employer] Address [address] [facility] [address] 7[address] [place] [address] Care Team Providers Care Window Machine Operator Name Role Phone Carmen Arauz NP Primary Care Provider [phone] Reason for Visit * Reason Onset Date Comments Med Refill 10/22/2023 Encounter Details Date Type Department Care Team (Late st Contact Info) Description 10/22/2023 Refill [facility] [address] [place], [place] [phone] Payton Mcintyre MD 230 [place] [address] Social History Tobacco Use Types Packs/Day Years [...] Description 10/19/2024 2:30 PM EDT Office Visit [facility] MED[facility] [address] [place] [address] Carmen Arauz NP 230 [place] [address] documented as of this encounter Visit Diagnoses Not on filedocumented in this encounter Additional Health Concerns Assessment Noted Time PHQ-9 Depression Total Score: 0 01/19/20 23 9:07 AM EDT documented as of this encounter Care Teams Window Machine Operator Relationship Specialty Start Date End Date Carmen Arauz NP 230 [place] [address] PCP - General Family Medicine 09/16/23 documented as of this encounter
--- OUTSIDE RECORDS SUMMARY | 2024-10-15 06:21 | XMS_ITS | Encounter Summary ---
Author Organization [employer] Address [address] [facility] [address] 7t [place] [address] Care Team Providers Care Transmission Worker Name Role Phone Carmen Arauz NP Primary Care Provider [phone] Reason for Visit * Reason Onset Date Comments Med Refill 11/25/2023 Encounter Details Date Type Department Care Team (Late st Contact Info) Description 11/25/2023 Refill [facility] [address] [place], [place] [phone] Payton Mcintyre MD 230 [place] [address] Social History Tobacco Use Types Packs/Day Years [...] Visit [facility] MEDICINE [address] [place] [address] Carmen Arauz NP [address] [place] [address] documented as of this encounter Visit Diagnoses Not on filedocumented in this encounter Additional Health Concerns Assessment Noted Time PHQ-9 Depression Total Score: 0 01/19/20 23 9:07 AM EDT documented as of this encounter Care Teams Transmission Worker Relationship Specialty Start Date End Date Carmen Arauz NP 230 [place] [address] PCP - General Family Medicine 09/16/23 documented as of this encounter
--- OUTSIDE RECORDS SUMMARY | 2024-10-15 06:21 | XMS_ITS | Encounter Summary ---
Author Organization [employer] Address [address] [facility] 7t [place] [address] Care Team Providers Care Coal Cager Name Role Phone Carmen Arauz NP Primary Care Provider [phone] Encounter Details Date Type Department [facility] Description 09/03/2022 Telephone [facility] MEDICINE [address] [place] [address] [phone] Juidth Parker MD [address] [place] [address] [phone] Social History Tobacco Use Types Packs/Day Years [...] Upcoming Encounters Date Type Department [facility] Description 10/19/2024 2:30 PM EDT Office Visit [facility] MED[facility] [address] [place] [address] [phone] Carmen Arauz NP 230 [place] [address] documented as of this encounter Visit Diagnoses Not on filedocumented in this encounter Care Teams Coal Cager Relationship Specialty Start Date End Date Carmen Arauz NP [address] [place] [address] PCP - General Family Medicine 09/16/23 Alla Oliveira Player Piano Technician 07/11/23 09/16/23 documented as of this encounter
--- OUTSIDE RECORDS SUMMARY | 2024-10-15 06:21 | XMS_ITS | Encounter Summary ---
Author Organization [employer] Address [address] [facility] [address] 7[address] [place] [address] Care Team Providers Care Manager Harbor Name Role Phone Carmen Arauz NP Primary Care Provider [phone] Reason for Visit * Reason Onset Date Comments Med Refill 06/22/2024 Encounter Details Date Type Department Care Team ([facility] st Contact Info) Description 06/22/2024 Refill [facility] 230 [place] [address] Ashwini Hogue MD [address] [place] [address] Social History Tobacco Use Types Packs/Day Years [...] Description 10/19/2024 2:30 PM EDT Office Visit [facility] MEDICINE 230 [place] [address] Carmen Arauz NP [address] [place] [address] documented as of this encounter Visit Diagnoses Not on filedocumented in this encounter Additional Health Concerns Assessment Noted Time PHQ-9 Depression Total Score: 9 02/05/20 24 8:58 AM EDT documented as of this encounter Care Teams Manager Harbor Relationship Specialty Start Date End Date Carmen Arauz NP 230 [place] [address] PCP - General Family Medicine 09/16/23 documented as of this encounter
--- OUTSIDE RECORDS SUMMARY | 2024-10-15 06:21 | XMS_ITS | Encounter Summary ---
Author Organization [employer] Address [address] [facility] [address] 7[address] [place] [address] Care Team Providers Care Documentation Nurse Name Role Phone Carmen Arauz NP Primary Care Provider [phone] Reason for Visit * Reason Onset Date Comments Med Refill 04/15/2024 Encounter Details Date Type Department Care Team ([facility] st Contact Info) Description 04/15/2024 Refill [facility] MEDICINE [address] [place], [place] [phone] Name, MD Harvinder 230 [place] [address] Mild persistent asthma without complication Social History [...] 10/19/2024 2:30 PM EDT Office Visit [facility] MEDICINE [address] [place] [address] Carmen Arauz NP [address] [place] [address] documented as of this encounter Visit Diagnoses Diagnosis Mild persistent asthma without complication documented in this encounter Additional Health Concerns Assessment Noted Time PHQ-9 Depression Total Score: 9 02/05/20 24 8:58 AM EDT documented as of this encounter Care Teams Documentation Nurse Relationship Specialty Start Date End Date Carmen Arauz NP [address] [place] [address] PCP - General Family Medicine 09/16/23 documented as of this encounter
--- OUTSIDE RECORDS SUMMARY | 2024-10-15 06:21 | XMS_ITS | Encounter Summary ---
Author Organization [employer] Address [address] [facility] [address] 7[address] [place] [address] Care Team Providers Care Petroleum Analyst Name Role Phone Carmen Arauz NP Primary Care Provider [phone] Reason for Visit * Reason Onset Date Comments Med Refill 09/10/2024 Encounter Details Date Type Department Care Team ([facility] st Contact Info) Description 09/10/2024 Refill [facility] [address] [place], [place] [phone] Carmen Arauz NP [address] [place] [address] Social History Tobacco Use Types Packs/Day Years [...] Office Visit [facility] MEDICINE 230 [place] [address] Carmen Arauz NP [address] [place] [address] documented as of this encounter Visit Diagnoses Not on filedocumented in this encounter Additional Health Concerns Assessment Noted Time PHQ-9 Depression Total Score: 9 02/05/20 24 8:58 AM EDT documented as of this encounter Care Teams Petroleum Analyst Relationship Specialty Start Date End Date Carmen Arauz NP [address] [place] [address] PCP - General Family Medicine 09/16/23 documented as of this encounter
--- OUTSIDE RECORDS SUMMARY | 2024-10-15 06:21 | XMS_ITS | Encounter Summary ---
Author Organization [employer] Address [address] [facility] 7t [place] [address] Care Team Providers Care Dredge Operator Name Role Phone Carmen Arauz NP Primary Care Provider [phone] Reason for Visit * Reason Onset Date Comments Med Refill 02/18/2024 Encounter Details Date Type Department Care Team ([facility] st Contact Info) Description 02/18/2024 Refill [facility] 230 [place], [place] [phone] Payton Mcintyre MD 230 [place], [place] [phone] Social History Tobacco Use Types Packs/Day Years [...] EDT Office Visit [facility] 230 [place] [address] Carmen Arauz NP [address] [place] [address] documented as of this encounter Visit Diagnoses Not on filedocumented in this encounter Additional Health Concerns Assessment Noted Time PHQ-9 Depression Total Score: 9 02/05/20 24 8:58 AM EDT documented as of this encounter Care Teams Dredge Operator Relationship Specialty Start Date End Date Carmen Arauz NP [address] [place] [address] PCP - General Family Medicine 09/16/23 documented as of this encounter
--- OUTSIDE RECORDS SUMMARY | 2024-10-15 06:21 | XMS_ITS | Encounter Summary ---
Author Organization [employer] Address [address] [facility] [address] 7t [place] [address] Care Team Providers Care Orthopedic Dentist Name Role Phone Regla Carmen YANNA Primary Care Provider [phone] Reason for Visit * Reason Comments Med Refill Encounter Details Date Type Department Care Team ([facility] st Contact Info) Description 05/18/2024 Refill [facility] MEDICINE [address] [place], [place] [phone] Judith Parker MD 230 [place], [place] [phone] Mild persistent asthma without complication Social History [...] EDT Office Visit [facility] MEDICINE [address] [place] [address] Carmen Arauz NP [address] [place] [address] documented as of this encounter Visit Diagnoses Diagnosis Mild persistent asthma without complication documented in this encounter Additional Health Concerns Assessment Noted Time PHQ-9 Depression Total Score: 9 02/05/20 24 8:58 AM EDT documented as of this encounter Care Teams Orthopedic Dentist Relationship Specialty Start Date End Date Carmen Arauz NP [address] [place] [address] PCP - General Family Medicine 09/16/23 documented as of this encounter
--- OUTSIDE RECORDS SUMMARY | 2024-10-15 06:21 | XMS_ITS | Encounter Summary ---
Author Organization [employer] Address [address] [facility] 7t [place] [address] Care Team Providers Care Shake Maker Name Role Phone Carmen Arauz NP Primary Care Provider [phone] Reason for Visit * Reason Onset Date Comments Med Refill 06/22/2024 Encounter Details Date Type Department Care Team ([facility] st Contact Info) Description 06/22/2024 Refill [facility] MED[facility]INE 230 [place], [place] [phone] Carmen Arauz, YANNA 230 [place], [place] [phone] Mild persistent asthma without complication Social History [...] TC from pt asking about referral for PARK WORKER. Nurse informed pt that a message has been sent to her provider, but the referral has not been placed yet. Pt verbalized understanding and denies anyfurther questions or concerns at this time. documented in this encounter Plan of Treatment Upcoming Encounters Date Type Department Care Team (Late st Contact Info) Description 10/19/2024 2:30 PM EDT Office Visit [facility] MEDICINE [address] [place] [address] Carmen Arauz NP [address] [place] [address] documented as of this encounter Visit Diagnoses Diagnosis Mild persistent asthma without complication documented in this encounter Additional Health Concerns Assessment Noted Time PHQ-9 Depression Total Score: 9 02/05/20 8:58 AM EDT documented as of this encounter Care Teams Shake Maker Relationship Specialty Start Date End Date Carmen Arauz NP [address] [place] [address] PCP - General Family Medicine 09/16/23 documented as of this encounter
--- OUTSIDE RECORDS SUMMARY | 2024-10-15 06:21 | XMS_ITS | Encounter Summary ---
Author Organization [employer] Address [address] [facility] 7t [place] [address] Care Team Providers Care Blankbook Forwarder Name Role Phone Fouzia Arauzily YANNA Primary Care Provider [phone] Reason for Visit * Reason Onset Date Comments Med Refill 05/15/2024 Encounter Details Date Type Department Care Team ([facility] st Contact Info) Description 05/15/2024 Refill [facility] MEDICINE [address] [place], [place] [phone] Judith Parker MD [address] [place], [place] [phone] Mild intermittent asthma, unspecified whether complicated Social [...] 10/19/2024 2:30 PM EDT Office Visit [facility] MEDICINE [address] [place] [address] Carmen Arauz NP [address] [place] [address] documented as of this encounter Visit Diagnoses Diagnosis Mild intermittent asthma, unspecified whether complicated documented in this encounter Additional Health Concerns Assessment Noted Time PHQ-9 Depression Total Score: 9 02/05/20 24 8:58 AM EDT documented as of this encounter Care Teams Blankbook Forwarder Relationship Specialty Start Date End Date Carmen Arauz NP [address] [place] [address] PCP - General Family Medicine 09/16/23 documented as of this encounter
--- OUTSIDE RECORDS SUMMARY | 2024-10-15 06:21 | XMS_ITS | Encounter Summary ---
Author Organization [employer] Address [address] [facility] 7t [place] [address] Care Team Providers Care Manager Target Name Role Phone Carmen Arauz NP Primary Care Provider [phone] Reason for Visit * Reason Onset Date Comments Med Refill 05/17/2023 Encounter Details Date Type Department Care Team ([facility] st Contact Info) Description 05/17/2023 Refill [facility] MEDICINE 230 [place], [place] [phone] Emerita Nash DO 230 [place], [place] [phone] Social History Tobacco Use Types Packs/Day Years [...] Description 10/19/2024 2:30 PM EDT Office Visit [facility] MEDICINE 230 [place] [address] Carmen Arauz NP [address] [place] [address] documented as of this encounter Visit Diagnoses Not on filedocumented in this encounter Additional Health Concerns Assessment Noted Time PHQ-9 Depression Total Score: 0 01/19/20 23 9:07 AM EDT documented as of this encounter Care Teams Manager Target Relationship Specialty Start Date End Date Carmen Arauz NP [address] [place] [address] PCP - General Family Medicine 09/16/23 Alla Oliveira Production Lapping Machine Operator 07/11/23 09/16/23 documented as of this encounter
--- OUTSIDE RECORDS SUMMARY | 2024-10-15 06:21 | XMS_ITS | Clinical Summary ---
Author Organization [employer] Address [address] [facility] 7t [place] [address] Care Team Providers Care Event Planning Intern Name Role Phone Fouzia Arauzily YANNA Primary Care Provider [phone] Allergies Active Allergy Reactions Criticality Noted Date Comments Penicillin G 03/27/2022 Other reaction(s): Hives / Skin Rash Medications omalizumab (Xolair) 150 MG/ML injectionIndicati ons:Hives INJECT THE CONTENTS OF 2 SYRINGES (300 MG) UNDER THE SKIN EVERY 4 WEEKS 2 mL 3 12/15/19 23 Active albuterol (Proventil HFA) 108 (90 Base) MCG/ACT inhalerIndication s:Mild intermittent asthma, unspecified whether complicated Inhale 2 puffs by mouth daily as needed 6.7 g 01/19/20 23 Active EPINEPHrine (Epipen) 0.3 MG/0.3ML injection syringe INJECT INTRAMUSCULARLY DIRECTED ON PACKAGE AND GO TO EMERGENCY ROOM 05/29/20 23 Active sucralfate (Carafate) 1 g tablet TAKE 2 TABLETS BY MOUTH EVERY DAY AT NOON 02/18/20 24 Active naloxone (Narcan) 4 mg/0.1 mL nasal spray Administer 1 spray into affected nostril(s) 1 (one) time if needed. 10/03/19 24 Active Symbicort 160-4.5 MCG/ACT inhaler Inhale 2 puffs 2 times daily. Active fexofenadine (Celia) 180 MG tablet Take 360 mg by mouth Once per day. Active desloratadine (Clarinex) 5 MG tablet TAKE 1 TABLET BY MOUTH EVERY DAY IN THE MORNING 90 tablet 1 04/08/20 24 Active Bisacodyl EC 5 MG EC tabletIndications :Other constipation Take 5 mg by mouth with water. May repeat x 1 dose (5 mg) for daily total of 10 mg. Do not exceed 10 mg more than twice per week. Do not crush, chew, or split. 8 tablet 05/05/20 24 Active cyclobenzaprine (Flexeril) 10 MG tabletIndications :Chronic low back pain, unspecified back pain laterality, unspecified whether sciatica present TAKE 1 TABLET BY MOUTH IN THE MORNING, AT NOON AND AT BEDTIME IF NEEDED FOR MUSCLES SPASMS FOR UP TO 10 DAYS 30 tablet 06/23/19 25 Active omeprazole (PriLOSEC) [address] capsule Take 1 capsule by mouth Once per day. 05/27/20 24 Active tretinoin (Retin-A) 0.01 % gelIndications:Hy perpigmentation of skin Apply topically at bedtime. 45 g 2 07/07/19 25 026 Active montelukast (Singulair) 10 MG tablet TAKE 1 TABLET BY MOUTH EVERY MORNING 90 tablet 08/06/19 25 Active famotidine (Pepcid) 40 MG tablet TAKE 1 TABLET BY MOUTH EVERY DAY 90 tablet 08/06/19 25 Active ondansetron ODT (Zofran-ODT) 4 MG disintegrating tablet TAKE 1 TABLET BY MOUTH EVERY [address] ON TOP OF THE TONGUE WHERE THEY WILL DISSOLVE THEN SWALLOW 15 tablet 09/12/19 25 Active acetaminophen (Tylenol 8 Hour) 650 MG ER tabletIndications :Lumbar spondylosis,Lumba r radiculopathy TAKE 2 TABLETS BY MOUTH EVERY 8 HOURS NEEDED 30 tablet 2 09/12/19 25 Active albuterol (Ventolin HFA) 108 (90 Base) MCG/ACT inhalerIndication s:Mild persistent asthma without complication INHALE 2 PUFFS BY MOUTH EVERY 4 HOURS NEEDED 18 g 09/12/19 25 Active betamethasone valerate (Valisone) 0.1 % cream APPLY TOPICALLY TWICE A DAY 30 g 09/12/19 25 Active fluticasone (Flonase) 50 MCG/ACT nasal spray Administer 1 spray into each nostril 2 times daily. Shake gently. Before first use, prime pump. After use, clean tip and replace cap. 48 g 09/17/19 25 Active pantoprazole (Protonix) 40 MG EC tablet TAKE 1 TABLET BY MOUTH TWICE A DAY. 180 tablet 09/17/19 25 Active Active Problems Problem Noted Date Diagnosed Date [...] status of the Xolair. F/u with new network applications specialist. ER precautions discussed. Pt sgrees with the plan. Assessment & Plan (09/16/2023 11:46 AM EDT): PRD 20 mg x 5d, counseled to discuss with network applications specialist (appt next month) re adjusting Xolair dose vs changing to another med so that she doesn't end up using PRD that often. Patient is aware of side effects of telemarketing sales representative use of steroids. DC Zyrtec and use desloratadine Continue Singulair FU with new PCP. Assessment & Plan (01/18/2023 2:16 PM EDT): Do not miss upcoming appointment with claims specialist PT1 for visit will be provided Assessment & Plan (08/30/2022 9:35 AM EDT): Continue loratadine, singular, prescription for prednisone. Left message for PA specilist for status of the Xolair. F/u with new network applications specialist. ER precautions discussed. Pt sgrees with the [...] Encounters Date Type Department Care Team Description 10/12/2024 Patient Outreach [facility] PED[facility] [address] [place] [address] Carmen Arauz NP Pre-visit Planning (SDOH was already completed) 09/30/2024 Orders Only GENERIC EXTERNAL DATA DEPARTMENT Provider, Generic External Data 09/15/2024 Telephone [facility] [address] [place] [address] Carmen Arauz NP 09/15/2024 Refill [facility] [address] [place] [address] Carmen Arauz NP 09/15/2024 Refill [facility] [address] [place] [address] Ashwini Hogue MD 09/14/2024 11:00 AM EDT Office Visit [facility] [address] [place] [address] Joyce Birmingham MD Lumbar radiculopathy, chronic (Primary Dx); Dietary counseling; Exercise counseling; Overweight 09/14/2024 Travel 09/14/[address] [address] Carmen Arauz NP Appointment Request 2024 Telephone [facility] [address] [place] [address] Emerita Nash DO Appointment Request 09/10/2024 Refill [facility] [address] [place] [address] Carmen Arauz NP 09/10/2024 Refill [facility] [address] [place] [address] Carmen Arauz NP Lumbar spondylosis; Lumbar radiculopathy; Mild persistent asthma without complication 09/10/2024 Refill [facility] [address] [place] [address] Carmen Arauz NP Hyperpigmentation of skin 09/10/2024 Refill [facility] & PEDS [address] [place] [address] Ashwini Hogue MD 09/07/2024 Outside Procedure [facility] [address] [place] [phone] Irene Li, OD Presbyopia (Primary Dx) 09/04/2024 9:15 AM EDT Office Visit [facility] [address] [place] [phone] Irene Li, OD 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) 09/03/2024 Telephone [facility] [address] [place] [address] Carmen Arauz NP Mondays Chronic Pain Group 08/26/2024 Telephone [facility] [address] [place] [address] Carmen Arauz NP Saturday Chronic Pain Group 08/21/2024 Population Health Risk Score [facility] () Department [address] [place] [phone] Provider, Population Health Generic 08/07/2024 Patient Outreach [facility] [address] [place] [address] Carmen Arauz NP Pre-visit Planning (SDOH unable to reach LVM) 08/06/2024 Refill [facility] [address] [place] [address] Carmen Arauz NP 08/05/2024 Telephone [facility] [address] [place] [address] Carmen Arauz NP Scheduling for pain group 07/23/2024 Telephone [facility] [address] [place] [address] Irene Li, OD 07/21/2024 Refill [facility] [address] [place] [address] Ashwini Hogue MD from Last 3 Months [...] Description 10/19/2024 2:30 PM EDT Office Visit [facility] [address] [place] [address] Carmen Arauz NP [address] [place] [address] Health Maintenance Due Date Last Done Comments [...] PM EDT) HPV High Risk Negative Negative [facility] HPV Genotype 16 Negative Negative [facility] HPV Genotype 18 Negative Negative [facility] Comment:HPV testing performe d at [facility] (CLIA#[id number]), [address] [place] [phone].Testing for HPV was performed using the [employer] PAM 6800system. The presence of HPV in [...] Provider LAB BLOOD ORDERAB LES Final Result [facility] [address] [place] [phone] * Pap Smear (09/30/2024 3:41 PM EDT) 09/30/2024 3:41 PM EDT 10/01/2024 11:22 AM EDT Narrative [facility] - 10/06/2024 10:50 AM EDT ----- ------- Name: Franchesca Chauhan ? Age/Sex: 49/F ? : 1975 Unit#: [id number] ?? Attend Dr: Lynne Connor CNM ?Re09/30/24 ?Status: DEP REF ? Location: HO.LNP ?Disch: ? ----- ------- SPEC : [id number] ? RECD: 10/01/24 ? STATUS: ??SOUT ? REQ NUM: [id number] ? KAELA: 09/30/24-154 ? SUBM DR: Lynne Connor CNM ? ENTERED: ??10/01/24-1131 ?SP TYPE: Pap Smr ?OTHR DR: Carmen Arauz SURVEILLANCE SYSTEMS ENGINEER ? ORDERED: ??Pap Smear ? Interpretation ?? Satisfactory for evaluation. ?? Negative for intraepithelial lesion or malignancy. ? HPV High Risk: ??Negative ? HPV Genotyping 16: ??Negative ?? HPV Genotyping 18: ??Negative ?Clinical Information LMP: no menses Previous PAP test:Unknown date/findings ? Material Received ?? ThinPrep-Cervical Copies To: ?? Carmen Arauz SURVEILLANCE SYSTEMS ENGINEER ?? [facility] ?? [address] [facility] ?? [place] [address] ?? [phone] ?? Lynne Connor CNM ?? [facility] ?? [address] [facility], [address]rd Floor ?? [place] [address] ?? [phone] ----- ------- Signed (signature on file) JENNIFER Shaw (ASCP) 10/06/24 1050 ? ----- ------- ? END OF REPORT ? us Generic External Data Provider LAB CYTOLOGY CATRACHITO PRIEST Final Result [facility] [address] [place] [address] [phone] * BI Mammogram Screening Tomosynthesis Bilateral (10/08/2023 10:40 AM EDT) Anatomical Region Laterality Modality Breast Bilateral Mammography 10/08/2023 10:4 0 AM EDT Narrative 11/04/2023 11:24 AM EDT ? [facility] ? [address] ?[place] [address] ? Mammography Report ? Signed ? Patient: Franchesca Chauhan ?MR#: [id number] ?? 88 ? : 1975 ?Acct:[id number] ? Age/Sex: 48 / F ?ADM Date: 10/08/23 ? Loc: HO.MAMMO ? Attending Dr: Carmen Arauz SURVEILLANCE SYSTEMS ENGINEER ? Ordering Physician: Carmen Arauz SURVEILLANCE SYSTEMS ENGINEER ?Results: 1Negati ?? ve ? Date of Service: 10/08/23 ?Follow Up: 1 Year From Orig ?? inal Mammogram ? Procedure(s): MM tomosynthesis screening BI ?? Accession Number(s): [id number] ? cc: Carmen Arauz SURVEILLANCE SYSTEMS ENGINEER ? EXAMINATION: ?? MM SCREENING DIGITAL BREAST [...] by Kusum Chester MD in OV> ? 11/04/23 1120 ? DD/ 1040 ? TD/TT: ? Bull Gang Supervisor: ? Procedure Note Verndrew, Image - 11/04/2023 [facility] [address] [place] [address] Mammography Report Signed Patient: Shanita Chauhan#: [id number] 88 : 1975Acct:[id number] Age/Sex: 48 / FADM Date: 10/08/23 Loc: [facility] Attending Dr: Carmen Arauz SURVEILLANCE SYSTEMS ENGINEER Ordering Physician: Carmen Arauz NPResults: 1Negati ve Date of Service: 10/08/23Follow Up: 1 Year From Orig inal Mammogram Procedure(s): MM tomosynthesis screening BI Accession Number(s): [id number] cc: Carmen Arauz SURVEILLANCE SYSTEMS ENGINEER EXAMINATION: MM SCREENING DIGITAL BREAST TOMOSYNTHESIS, BILATERAL [...] in OV> 11/04/23 1120 DD/ 1040 TD/TT: Bull Gang Supervisor: us Carmen Arauz SURVEILLANCE SYSTEMS ENGINEER IMG BI PROCEDURES Final Result * Hepatitis C Antibody Reflex (01/31/2023 8:50 AM EDT) Hepatitis C Antibody Nonreactive Nonreactive [facility] Comment:Antibodies to HCV no t detected; does not exclude early acuteHCV infection. 01/31/2023 8:50 AM EDT 01/31/2023 11:11 AM EDT us Judith Sibley MD LAB BLOOD ORDERABLES Final Result [facility] [address] [place] [address] [phone] * HIV Ab/Ag ([facility]) (01/31/2023 8:50 AM EDT) HIV AB/AG Nonreactive Nonreactive [facility] Comment:HIV-1 p24 Ag and/or HIV-1/HIV-2 Ab not detected.A test result that is nonreactive does not exclude thepossibility of exposure to or infection with HIV-1 and/orHIV-2. Nonreactive results in this assay for individualswith prior exposure to HIV-1 and/or HIV-2 may be due toantigen and antibody levels that are below the limit ofdetection of this assay.The [employer] Delivery Management Consultant HIV Ag/Ab Combo assay result andsupplemental assay results should be interpreted inconjunction with the patient's clinical presentation,history and other laboratory results. If the results areinconsistent with clinical evidence, additional testing issuggested to confirm the result. 01/31/2023 8:50 AM EDT 01/31/2023 11:11 AM EDT us Judith Sibley MD LAB BLOOD ORDERABLES Final Result [facility] [address] [place] [phone] * Lipid Panel, Standard (01/31/2023 8:50 AM EDT) Triglycerides 79 <150 mg/dL [facility] Comment:Desirable Triglyceri de: less than 150 mg/dLBorderline High Triglyceride 150-199 mg/dLHigh Triglyceride: 200-499 mg/dLVery High Triglyceride: greater than or equal to 5OO mg/dL Cholesterol 150 <200 mg/dL [facility] Comment:Desirable Cholestero l: less than 200 mg/dLBorderline High Cholesterol: 200-239 mg/dLHigh Cholesterol: greater than 239 mg/dL LDL Cholesterol Calculated 86 <100 mg/dL [facility] Comment:Desirable LDL: less than 100 mg/dLNear Optimal/Above Optimal LDL: 110- 129 mg/dLBorderline High LDL: 130-159 mg/dLHigh LDL: 160-189 mg/dLVery High LDL: greater than or equal to 190 mg/dL HDL Cholesterol 49 >40 mg/dL [facility] Comment:Desirable HDL: great er than 40 mg/dL Note: This HDL assay may give artificially low results in patients with liver disease. Blood Venous blood specimen / Unknown 01/31/2023 8:50 AM EDT 01/31/2023 11:11 AM EDT Judith Sibley MD LAB BLOOD ORDERABLES Final Result [facility] [address] [place] [address] [phone] from Last 3 Months or Most Recently Relevant to Health Maintenance Insurance [facility] Care Teams Event Planning Intern Relationship Specialty Start Date End Date Carmen Arauz NP [address] [place] [address] PCP - General Family Medicine 09/16/23
--- OUTSIDE RECORDS SUMMARY | 2024-10-15 06:21 | XMS_ITS | Encounter Summary ---
Author Organization [employer] Address [address] [facility] [address] [place] [address] Care Team Providers Care Final Inspector Motorcyles Name Role Phone Carmen Arauz NP Primary Care Provider [phone] Encounter Details Date Type Department Care Team ([facility] st Contact Info) Description 05/25/2024 Telephone [facility] [address] [place], [place] [phone] Carmen Arauz NP [address] [place] [address] Social History Tobacco Use Types Packs/Day Years [...] Office Visit [facility] [address] [place] [address] Carmen Arauz NP [address] [place] [address] documented as of this encounter Visit Diagnoses Not on filedocumented in this encounter Additional Health Concerns Assessment Noted Time PHQ-9 Depression Total Score: 9 02/05/20 24 8:58 AM EDT documented as of this encounter Care Teams Final Inspector Motorcyles Relationship Specialty Start Date End Date Carmen Arauz NP [address] [place] [address] PCP - General Family Medicine 09/16/23 documented as of this encounter
--- OUTSIDE RECORDS SUMMARY | 2024-10-15 06:21 | XMS_ITS | Clinical Summary ---
Author Organization [facility] Address [address] [place] [phone] Phone Care Team Providers Care Architectural Sales Consultant Name Role Phone Physician, Pcp Unknown Primary [...] topic Insurance MEDICAID - [place] Care Teams Architectural Sales Consultant Relationship Specialty Start Date End Date Physician, Pcp Unknown PCP - General 06/01/24
--- OUTSIDE RECORDS SUMMARY | 2024-10-15 06:21 | XMS_ITS | Encounter Summary ---
Author Organization [employer] Address [address] [facility] 7t [place] [address] Care Team Providers Care Instructor Correspondence School Name Role Phone Carmen Arauz NP Primary Care Provider [phone] Reason for Visit * Reason Onset Date Comments Med Refill 09/10/2024 Encounter Details Date Type Department Care Team (Late st Contact Info) Description 09/10/2024 Refill [facility] [address] [place], [place] [phone] Carmen Arauz NP [address] [place], [place] [phone] Hyperpigmentation of skin Social History Tobacco Use [...] 2:30 PM EDT Office Visit [facility] [address] [place] [address] Carmen Arauz NP [address] [place] [address] documented as of this encounter Visit Diagnoses Diagnosis Hyperpigmentation of skin Other dyschromia documented in this encounter Additional Health Concerns Assessment Noted Time PHQ-9 Depression Total Score: 9 02/05/20 24 8:58 AM EDT documented as of this encounter Care Teams Instructor Correspondence School Relationship Specialty Start Date End Date Carmen Arauz NP [address] [place] [address] PCP - General Family Medicine 09/16/23 documented as of this encounter
--- OUTSIDE RECORDS SUMMARY | 2024-10-15 06:22 | XMS_ITS | Encounter Summary ---
Author Organization [employer] Address 75 [facility] 7t [place] [address] Care Team Providers Care Concrete Engineering Technician Name Role Phone Carmen Arauz NP Primary Care Provider [phone] Reason for Visit * Reason Onset Date Comments Med Refill 04/15/2024 Encounter Details Date Type Department Care Team (Late st Contact Info) Description 04/15/2024 Refill [facility] [address] [place], [place] [phone] Carmen Arauz NP [address] [place], [place] [phone] Lumbar spondylosis; Lumbar radiculopathy Social History Tobacco [...] Description 10/19/2024 2:30 PM EDT Office Visit [facility] [address] [place] [address] Carmen Arauz NP [address] [place] [address] documented as of this encounter Visit Diagnoses Diagnosis Lumbar spondylosis Lumbosacral spondylosis without myelopathy Lumbar radiculopathy Thoracic or lumbosacral neuritis or radiculitis, unspecified documented in this encounter Additional Health Concerns Assessment Noted Time PHQ-9 Depression Total Score: 9 02/05/20 24 8:58 AM EDT documented as of this encounter Care Teams Concrete Engineering Technician Relationship Specialty Start Date End Date Carmen Arauz NP [address] [place] [address] PCP - General Family Medicine 09/16/23 documented as of this encounter
--- OUTSIDE RECORDS SUMMARY | 2024-10-15 06:22 | XMS_ITS | Encounter Summary ---
Author Organization [employer] Address [address] [facility] 7t [place] [address] Care Team Providers Care Crusher Feeder Name Role Phone Carmen Arauz NP Primary Care Provider [phone] Encounter Details Date Type Department Care Team ([facility] Contact Info) Description 08/10/2022 Abstract [facility] MED[facility] [address] [place] [address] [phone] Judith Parker MD [address] [place] [address] [phone] Social History Tobacco Use Types Packs/Day Years [...] Upcoming Encounters Date Type Department Care Team ([facility] Contact Info) Description 10/19/2024 2:30 PM EDT Office Visit [facility] [address] [place] [address] [phone] Carmen Arauz NP [address] [place] [address] [phone] documented as of this encounter Visit Diagnoses Not on filedocumented in this encounter Care Teams Crusher Feeder Relationship Specialty Start Date End Date Carmen Arauz NP [address] [place] [phone] PCP - General Family Medicine 09/16/23 Alla Oliveira Morphologist 07/11/23 09/16/23 documented as of this encounter
--- OUTSIDE RECORDS SUMMARY | 2024-10-15 06:22 | XMS_ITS | Encounter Summary ---
Author Organization [employer] Address [address] [facility] 7t [place] [address] Care Team Providers Care Analysis Consultant Name Role Phone Carmen Arauz NP Primary Care Provider [phone] Reason for Visit * Reason Onset Date Comments returning phone call 08/13/2022 Encounter Details Date Type Department Care Team ([facility] st Contact Info) Description 08/13/2022 Telephone [facility] [address] [place], [place] [phone] Judith Parker MD [address] [place], [place] [phone] returning phone call Social History Tobacco Use [...] Task was 08/13/2022 Please contact pt at [phone] documented in this encounter Plan of Treatment Upcoming Encounters Date Type Department Care Team (Late st Contact Info) Description 10/19/2024 2:30 PM EDT Office Visit [facility] [address] [place] [address] Carmen Arauz NP [address] [place] [address] documented as of this encounter Visit Diagnoses Not on filedocumented in this encounter Care Teams Analysis Consultant Relationship Specialty Start Date End Date Carmen Arauz NP [address] [place] [address] PCP - General Family Medicine 09/16/23 Alla Oliveira Outside Machinist Helper 07/11/23 09/16/23 documented as of this encounter
--- OUTSIDE RECORDS SUMMARY | 2024-10-15 06:22 | XMS_ITS | Encounter Summary ---
Author Organization [employer] Address 75 [facility] 7t [place] [address] Care Team Providers Care Semiconductor Technician Name Role Phone Fouzia Arauzily YANNA Primary Care Provider [phone] Reason for Visit * Reason Onset Date Comments triage 08/16/2022 Encounter Details Date Type Department Care Team ([facility] st Contact Info) Description 08/16/2022 Telephone [facility] MED[facility] [address] [place], [place] [phone] Judith Parker MD [address] [place], [place] [phone] triage Social History Tobacco Use Types Packs/Day [...] Office Visit [facility] [address] [place] [address] Carmen Arauz NP [address] [place] [address] documented as of this encounter Visit Diagnoses Not on filedocumented in this encounter Care Teams Semiconductor Technician Relationship Specialty Start Date End Date Carmen Aaruz NP [address] [place] [address] PCP - General Family Medicine 09/16/23 Alla Oliveira Driver Guard 07/11/23 09/16/23 documented as of this encounter
--- OUTSIDE RECORDS SUMMARY | 2024-10-15 06:22 | XMS_ITS | Encounter Summary ---
Author Organization [employer] Address [address] [facility] 7t [place] [address] Care Team Providers Care Box Truck Driver Name Role Phone ReglaCarmen YANNA Primary Care Provider [phone] Reason for Visit * Reason Onset Date Comments Nurse Triage 06/27/2023 TelephoneCall 06/27/2023 Encounter Details Date Type Department Care Team ([facility] st Contact Info) Description 06/27/2023 Telephone [facility] [address] [place], [place] [phone] Judith Parker MD [address] [place], [place] [phone] Nurse Triage; TelephoneCall Social History Tobacco Use [...] your housing situation today? I have jayla hopkisn 04/08/[address] you li [...] pt is having. Please contact pt at [phone] * Telephone Encounter - Petrona Felix RN - 06/27/2023 4:33 PM EST Called pt. She states that she is looking for an appt. With PCP. Pt. Is seeing pain management and they want to start doing back injections. Pt. States I used to get back injections when I lived in [place] and the injections do not work . [...] Visit within 3 Days- first available appt 07/18/23. Video visit not offered Positive Triage Questions: [...] Description 10/19/2024 2:30 PM EDT Office Visit [facility] [address] [place] [address] Carmen Arauz NP [address] [place] [address] documented as of this encounter Visit Diagnoses Not on filedocumented in this encounter Additional Health Concerns Assessment Noted Time PHQ-9 Depression Total Score: 0 01/19/20 23 9:07 AM EDT documented as of this encounter Care Teams Box Truck Driver Relationship Specialty Start Date End Date Carmen Arauz NP [address] [place] [address] PCP - General Family Medicine 09/16/23 Alla Oliveira Manager Voice 07/11/23 09/16/23 documented as of this encounter
--- OUTSIDE RECORDS SUMMARY | 2024-10-15 06:22 | XMS_ITS | Encounter Summary ---
Author Organization [employer] Address [address] [facility] 7t [place] [address] Care Team Providers Care Datastage Consultant Name Role Phone Carmen Arauz NP Primary Care Provider [phone] Reason for Visit * Reason Comments Pre-visit Planning SDOH was already com pleted Encounter Details Date Type Department Care Team ([facility] Contact Info) Description 10/12/2024 Patient Outreach [facility] [address] [place], [place] [phone] Carmen Arauz NP [address] [place] [address] Pre-visit Planning (SDOH was already completed) Social History Tobacco Use Types Packs/Day Years [...] as of this encounter Progress Notes * Jazz Baer - 10/12/2024 3:31 PM EDT TJ Dawn placed successful outbound call to patient for pre-visit planning. Patient name and confirmed. Patient confirms appt date and time, and has transportation arrangements. Biggest concern for appointment at this time is no concerns. Appropriate screenings completed in anticipation ofappointment. documented in this encounter Plan of Treatment Upcoming Encounters Date Type Department Care Team (Late st Contact Info) Description 10/19/2024 2:30 PM EDT Office Visit [facility] MED[facility]INE [address] [place] [address] Caremn Arauz NP 230 [place] [address] documented as of this encounter Visit Diagnoses Not on filedocumented in this encounter Additional Health Concerns Assessment Noted Time PHQ-9 Depression Total Score: 9 02/05/20 24 8:58 AM EDT documented as of this encounter Care Teams Datastage Consultant Relationship Specialty Start Date End Date Carmen Arauz NP 230 [place] [address] PCP - General Family Medicine 09/16/23 documented as of this encounter
== END 2024-10-15 06:19 | disposition home or self-care (01) ==
LOC: CF 06:18
PROVIDERS: Visit Provider Internal Medicine
DX: M47.816 Spondylosis without myelopathy or radiculopathy, lumbar region (principal); M51.369 Other intervertebral disc degeneration, lumbar region without mention of lumbar back pain or lower extremity pain; Q76.49 Other congenital malformations of spine, not associated with scoliosis
CPT/HCPCS: 64493; 64494; J2003; J2795; Q9967

== ENCOUNTER 2024-10-15 11:04 | Outpatient (AMB) | payer MEDICAID, SELFPAY ==
--- NOTE | 2024-10-15 11:10 | A.OFFVIS_ITS ---
Vital Signs 10/15/24 11:11 10/15/24 11:45 Height 5 ft 5 in BP 110/62 124/70 Blood Pressure Location Rt brachial Lt brachial Position Sitting Sitting Pulse 67 64 Pulse Source Pulse Oximeter Pulse Oximeter Pulse Oximetry (%) 97 99 Oxygen Delivery Method Room Air Room Air Intake Visit Reasons: Antonio Dx L3-L4-DR-L5 MBB Allergies Penicillins [PENICILLINS] Allergy (Unknown, Verified 10/15/24 11:11) HIVES HPI HPI Antonio Dx L3-L4-DR-L5 MBB: Details: Patient presents for scheduled procedure. Denies any recent cough, cold, infection, fever or other significant changes in medical history since last office visit. [facility] Medical History Back pain GERD (gastroesophageal reflux disease) Depression Asthma Bilateral knee pain Lumbar back pain with radiculopathy affecting right lower extremity Chronic urticaria Surgical History History of esophagogastroduodenoscopy (EGD) H/O colonoscopy S/P right knee arthroscopy (03/20/24) H/O tubal ligation Hx of hand surgery (~2013) Family History Father Throat cancer Family/Other Breast cancer Social History Are you a primary care transitions nurse to a significant other at home: No Do you presently have visiting nurse or other home services: No Alcohol intake: never Patient Tobacco Use Status: Current everyday Tobacco user Tobacco use type: Cigarette Cigarette Packs Per Day: 1.0 Cigarettes Per Day: 6 Substance Use Type: Marijuana Current occupational status: unemployed Current occupation: rt handed Female Reproductive History Menstrual Age of Menarche: 15 Physical Exam Vital Signs: Last Vital Signs Pulse 64 10/15/24 11:45 BP 124/70 10/15/24 11:45 Pulse Ox 99 10/15/24 11:45 Oxygen Delivery Method Room Air 10/15/24 11:45 Office Procedures Details: Lumbar Medial Branch Block, Bilateral L3, L4 medial branches (1 level, 2 nerves) After obtaining written consent, pre-procedure blood pressure and pulse were recorded and are in the nursing record for review. The patient was placed in a prone position. The respective lumbosacral area was prepped with chloraprep and draped in sterile fashion. The skin over the target medial branch nerves was anesthetized with 0.5% lidocaine. A 22 gauge 3.5 inch needle was inserted into the target medial branch nerve under fluoroscopic guidance. No paresthesias were elicited with needle placement and aspiration was negative for blood and CSF. Next, 0.2cc of omnipaque 180 was injected to verify positioning. Next 0.5 ml 0.5% pivicaine was injected (0.5cc total per level). The identical procedure was performed at the remaining levels. The skin was cleansed and a sterile bandage was applied. Following the procedure the patient's vital signs were stable. The patient tolerated the procedure well and no complications were encountered. Following the procedure the patient's vital signs were stable. The patient was discharged home in good condition with post-procedural instructions. Time Out: Immediately prior to the procedure, the following was verbally confirmed that there is a signed consent form and that the correct patient, planned procedure, site and side are consistent with documentation and that necessary equipment and/or blood products are available prior to the start of the case. 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 Patient experience significant injection related discomfort. 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 She may benefit from a targeted corticosteroid injection to the right L5-S1 facet and articulation of the transverse process with the sacrum and iliac crest. I explained this to the patient with the help of her x-ray films and she is amenable to trying that if the medial branch blocks are not helpful. 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
[2024-10-15 11:11] VITALS: BP 110/62; PULSE 67; O2SAT 97
[2024-10-15 11:45] VITALS: BP 124/70; PULSE 64; O2SAT 99
--- OUTSIDE RECORDS SUMMARY | 2024-10-15 12:34 | XMS_ITS | Encounter Summary ---
Author Organization [employer] Address [address] 7[address] [place] [address] Care Team Providers Care Telecommunications Switch Technician Name Role Phone Carmen Arauz NP Primary Care Provider [phone] Reason for Visit * Reason Onset Date Comments Nurse Triage 05/26/2024 Encounter Details Date Type Department Care Team ([facility] st Contact Info) Description 05/26/2024 Telephone [facility] [address] [place], [place] [phone] Carmen Arauz NP [address] [place], [place] [phone] Nurse Triage Social History Tobacco Use Types [...] Triage call Pt was last seen in [facility] 05/25/24. Pt has been doing everything [...] call regarding prior message. Contact pt at [phone] * Telephone Encounter - Adalid Joe - [...] Office Visit [facility] [address] [place] [address] Carmen Arauz NP [address] [place] [address] documented as of this encounter Visit Diagnoses Not on filedocumented in this encounter Additional Health Concerns Assessment Noted Time PHQ-9 Depression Total Score: 9 02/05/20 24 8:58 AM EDT documented as of this encounter Care Teams Telecommunications Switch Technician Relationship Specialty Start Date End Date Carmen Arauz NP [address] [place] [address] PCP - General Family Medicine 09/16/23 documented as of this encounter
--- OUTSIDE RECORDS SUMMARY | 2024-10-15 12:34 | XMS_ITS | Encounter Summary ---
Author Organization [employer] Address [address] [facility] [address] [place] [address] Care Team Providers Care Cardiopulmonary Specialist Name Role Phone Regla Carmen YANNA Primary Care Provider Reason for Visit * Reason Comments Med Refill Encounter Details Date Type Department Care Team ([facility] st Contact Info) Description 05/18/2024 Refill [facility] 230 [place], [place] [phone] Judith Parker MD [address] [place], [place] [phone] Mild persistent asthma without complication Social History [...] Description 10/19/2024 2:30 PM EDT Office Visit [facility] [address] [place] [address] Carmen Arauz NP 230 [place] [address] documented as of this encounter Visit Diagnoses Diagnosis Mild persistent asthma without complication documented in this encounter Additional Health Concerns Assessment Noted Time PHQ-9 Depression Total Score: 9 02/05/20 24 8:58 AM EDT documented as of this encounter Care Teams Cardiopulmonary Specialist Relationship Specialty Start Date End Date Carmen Arauz NP [address] [place] [address] PCP - General Family Medicine 09/16/23 documented as of this encounter
--- OUTSIDE RECORDS SUMMARY | 2024-10-15 12:34 | XMS_ITS | Encounter Summary ---
Author Organization [employer] Address [address] [facility] 7t [place] [address] Care Team Providers Care Disabilities Caregiver Name Role Phone Carmen Arauz NP Primary Care Provider [phone] Encounter Details Date Type Department Care Team ([facility] Contact Info) Description 09/03/2022 Telephone [facility] MED[facility]INE [address] [place] [phone] Judith Parker MD [address] [place] [phone] Social History Tobacco Use Types Packs/Day Years [...] Upcoming Encounters Date Type Department Care Team ([facility] Contact Info) Description 10/19/2024 2:30 PM EDT Office Visit [facility] [address] [place] [address] [phone] Carmen Arauz NP [address] [place] [address] documented as of this encounter Visit Diagnoses Not on filedocumented in this encounter Care Teams Disabilities Caregiver Relationship Specialty Start Date End Date Carmen Arauz NP [address] [place] [address] PCP - General Family Medicine 09/16/23 Alla Oliveira Sign Builder Supervisor 07/11/23 09/16/23 documented as of this encounter
--- OUTSIDE RECORDS SUMMARY | 2024-10-15 12:34 | XMS_ITS | Clinical Summary ---
Author Organization [facility] Address [address] [place] [phone] Phone Care Team Providers Care Workforce Management Consultant Name Role Phone Physician, Pcp Unknown [...] topic Insurance MEDICAID - [place] Care Teams Workforce Management Consultant Relationship Specialty Start Date End Date Physician, Pcp Unknown PCP - General 06/01/24
--- OUTSIDE RECORDS SUMMARY | 2024-10-15 12:34 | XMS_ITS | Encounter Summary ---
Author Organization [employer] Address [address] [facility] 7t [place] [address] Care Team Providers Care Power Plant Technician Name Role Phone Carmen Arauz NP Primary Care Provider [phone] Reason for Visit * Reason Onset Date Comments Med Refill 02/18/2024 Encounter Details Date Type Department Care Team ([facility] st Contact Info) Description 02/18/2024 Refill [facility] 230 [place], [place] [phone] Payton Mcintyre MD [address] [place], [place] [phone] Social History Tobacco Use Types Packs/Day Years [...] [facility] 230 [place] [address] Carmen Arauz NP [address] [place] [address] documented as of this encounter Visit Diagnoses Not on filedocumented in this encounter Additional Health Concerns Assessment Noted Time PHQ-9 Depression Total Score: 9 02/05/20 24 8:58 AM EDT documented as of this encounter Care Teams Power Plant Technician Relationship Specialty Start Date End Date Carmen Arauz NP [address] [place] [address] PCP - General Family Medicine 09/16/23 documented as of this encounter
--- OUTSIDE RECORDS SUMMARY | 2024-10-15 12:34 | XMS_ITS | Encounter Summary ---
Author Organization [employer] Address [address] [facility] [address]t [place] [address] Care Team Providers Care Melter Helper Name Role Phone Carmen Arauz NP Primary Care Provider [phone] Reason for Visit * Reason Onset Date Comments Med Refill 05/17/2023 Encounter Details Date Type Department Care Team ([facility] st Contact Info) Description 05/17/2023 Refill [facility] [address] [place], [place] [phone] Emerita Nash DO [address] [place], [place] [phone] Social History Tobacco Use Types Packs/Day Years [...] 2:30 PM EDT Office Visit [facility] [address] [place] [address] Camren Arauz NP 230 [place] [address] documented as of this encounter Visit Diagnoses Not on filedocumented in this encounter Additional Health Concerns Assessment Noted Time PHQ-9 Depression Total Score: 0 01/19/20 23 9:07 AM EDT documented as of this encounter Care Teams Melter Helper Relationship Specialty Start Date End Date Carmen Arauz NP [address] [place] [address] PCP - General Family Medicine 09/16/23 Alla Oliveira Summer Associate 07/11/23 09/16/23 documented as of this encounter
--- OUTSIDE RECORDS SUMMARY | 2024-10-15 12:34 | XMS_ITS | Encounter Summary ---
Author Organization [employer] Address [address] [facility] [address] 7t [place] [address] Care Team Providers Care Recreation Attendant Supervisor Name Role Phone Carmen Arauz NP Primary Care Provider [phone] Encounter Details Date Type Department Care Team ([facility] st Contact Info) Description 05/18/2024 Telephone [facility] 230 [place], [place] [phone] Carmen Arauz NP [address] [place] [address] Social History Tobacco Use Types Packs/Day Years [...] PM EDT Office Visit [facility] [address] [place] [address] Carmen Arauz NP [address] [place] [address] documented as of this encounter Visit Diagnoses Not on filedocumented in this encounter Additional Health Concerns Assessment Noted Time PHQ-9 Depression Total Score: 9 02/05/20 24 8:58 AM EDT documented as of this encounter Care Teams Recreation Attendant Supervisor Relationship Specialty Start Date End Date Carmen Arauz NP 230 [place] [address] PCP - General Family Medicine 09/16/23 documented as of this encounter
--- OUTSIDE RECORDS SUMMARY | 2024-10-15 12:34 | XMS_ITS | Encounter Summary ---
Author Organization [employer] Address [address] [facility] 7t [place] [address] Care Team Providers Care Research Professor Name Role Phone Carmen Arauz NP Primary Care Provider Reason for Visit * Reason Onset Date Comments Med Refill 06/22/2024 Encounter Details Date Type Department Care Team ([facility] st Contact Info) Description 06/22/2024 Refill [facility] 230 [place], [place] [phone] Carmen Arauz, YANNA [address] [place], [place] [phone] Mild persistent asthma without complication Social History [...] TC from pt asking about referral for CHIEF GUARD. Nurse informed pt that a message has been sent to her provider, but the referral has not been placed yet. Pt verbalized understanding and denies anyfurther questions or concerns at this time. documented in this encounter Plan of Treatment Upcoming Encounters Date Type Department Care Team (Late st Contact Info) Description 10/19/2024 2:30 PM EDT Office Visit [facility] [address] [place] [address] Carmen Arauz NP [address] [place] [address] documented as of this encounter Visit Diagnoses Diagnosis Mild persistent asthma without complication documented in this encounter Additional Health Concerns Assessment Noted Time PHQ-9 Depression Total Score: 9 02/05/20 8:58 AM EDT documented as of this encounter Care Teams Research Professor Relationship Specialty Start Date End Date Carmen Arauz NP [address] [place] [address] PCP - General Family Medicine 09/16/23 documented as of this encounter
--- OUTSIDE RECORDS SUMMARY | 2024-10-15 12:34 | XMS_ITS | Encounter Summary ---
Author Organization [employer] Address [address] [facility] 7t [place] [address] Care Team Providers Care Rad Technologist Name Role Phone Fouzia Arauzily YANNA Primary Care Provider [phone] Reason for Visit * Reason Onset Date Comments Med Refill 05/15/2024 Encounter Details Date Type Department Care Team ([facility] st Contact Info) Description 05/15/2024 Refill [facility] 230 [place], [place] [phone] Judith Parker MD 230 [place], [place] [phone] Mild intermittent asthma, unspecified whether complicated Social [...] Office Visit [facility] [address] [place] [address] Carmen Arauz NP [address] [place] [address] documented as of this encounter Visit Diagnoses Diagnosis Mild intermittent asthma, unspecified whether complicated documented in this encounter Additional Health Concerns Assessment Noted Time PHQ-9 Depression Total Score: 9 02/05/20 24 8:58 AM EDT documented as of this encounter Care Teams Rad Technologist Relationship Specialty Start Date End Date Carmen Arauz NP [address] [place] [address] PCP - General Family Medicine 09/16/23 documented as of this encounter
--- OUTSIDE RECORDS SUMMARY | 2024-10-15 12:34 | XMS_ITS | Encounter Summary ---
Author Organization [employer] Address [address] [facility] [address] [place] [address] Care Team Providers Care Balance Wheel Screw Hole Tapper Name Role Phone Carmen Arauz NP Primary Care Provider [phone] Reason for Visit * Reason Onset Date Comments Med Refill 10/22/2023 Encounter Details Date Type Department Care Team (Late st Contact Info) Description 10/22/[address] [facility] [address] [place], [place] [phone] Payton Mcintyre MD [address] [place] [address] Social History Tobacco Use Types Packs/Day Years [...] [facility] [address] [place] [address] Carmen Arauz NP 230 [place] [address] documented as of this encounter Visit Diagnoses Not on filedocumented in this encounter Additional Health Concerns Assessment Noted Time PHQ-9 Depression Total Score: 0 01/19/20 23 9:07 AM EDT documented as of this encounter Care Teams Balance Wheel Screw Hole Tapper Relationship Specialty Start Date End Date Carmen Arauz NP 230 [place] [address] PCP - General Family Medicine 09/16/23 documented as of this encounter
--- OUTSIDE RECORDS SUMMARY | 2024-10-15 12:34 | XMS_ITS | Encounter Summary ---
Author Organization [employer] Address [address] [facility] [address] [place] [address] Care Team Providers Care Lead Sales Consultant Name Role Phone Carmen Arauz NP Primary Care Provider [phone] Reason for Visit * Reason Onset Date Comments Med Refill 11/25/2023 Encounter Details Date Type Department Care Team (Late st Contact Info) Description 11/25/[address] [facility] 230 [place], [place] [phone] Payton Mcintyre MD 230 [place] [address] Social History Tobacco Use Types Packs/Day Years [...] Office Visit [facility] MED[facility]INE 230 [place] [address] Carmen Arauz NP 230 [place] [address] documented as of this encounter Visit Diagnoses Not on filedocumented in this encounter Additional Health Concerns Assessment Noted Time PHQ-9 Depression Total Score: 0 01/19/20 23 9:07 AM EDT documented as of this encounter Care Teams Lead Sales Consultant Relationship Specialty Start Date End Date Carmen Arauz NP 230 [place] [address] PCP - General Family Medicine 09/16/23 documented as of this encounter
--- OUTSIDE RECORDS SUMMARY | 2024-10-15 12:34 | XMS_ITS | Encounter Summary ---
Author Organization [employer] Address [address] [facility] [address] [place] [address] Care Team Providers Care Social Insurance Analyst Name Role Phone Fouzia Arauzily YANNA Primary Care Provider [phone] Reason for Visit * Reason Onset Date Comments Med Refill 11/25/2023 Encounter Details Date Type Department Care Team (Late st Contact Info) Description 11/25/2023 Refill [facility] 230 [place], [place] [phone] Judith Parker MD 230 [place], [place] [phone] Mild persistent asthma without complication Social History [...] Description 10/19/2024 2:30 PM EDT Office Visit [facility] 230 [place] [address] Carmen Arauz NP [address] [place] [address] documented as of this encounter Visit Diagnoses Diagnosis Mild persistent asthma without complication documented in this encounter Additional Health Concerns Assessment Noted Time PHQ-9 Depression Total Score: 0 01/19/20 23 9:07 AM EDT documented as of this encounter Care Teams Social Insurance Analyst Relationship Specialty Start Date End Date Carmen Arauz NP [address] [place] [address] PCP - General Family Medicine 09/16/23 documented as of this encounter
--- OUTSIDE RECORDS SUMMARY | 2024-10-15 12:34 | XMS_ITS | Encounter Summary ---
Author Organization [employer] Address [address] [facility] [address] [place] [address] Care Team Providers Care Hot Stick Man Name Role Phone Carmen Arauz NP Primary Care Provider Reason for Visit * Reason Onset Date Comments Med Refill 06/22/2024 Encounter Details Date Type Department Care Team ([facility] st Contact Info) Description 06/22/[address] [facility] 230 [place] [address] Ashwini Hogue MD [address] [place] [address] Social History Tobacco Use Types Packs/Day Years [...] 10/19/2024 2:30 PM EDT Office Visit [facility] [address] [place] [address] Carmen Arauz NP 230 [place] [address] documented as of this encounter Visit Diagnoses Not on filedocumented in this encounter Additional Health Concerns Assessment Noted Time PHQ-9 Depression Total Score: 9 02/05/20 24 8:58 AM EDT documented as of this encounter Care Teams Hot Stick Man Relationship Specialty Start Date End Date Carmen Arauz NP 230 [place] [address] PCP - General Family Medicine 09/16/23 documented as of this encounter
--- OUTSIDE RECORDS SUMMARY | 2024-10-15 12:34 | XMS_ITS | Encounter Summary ---
Author Organization [employer] Address 75 [facility] 7t [place] [address] Care Team Providers Care Closing Supervisor Name Role Phone Carmen Arauz NP Primary Care Provider [phone] Reason for Visit * Reason Onset Date Comments Nurse Triage 05/15/2024 Encounter Details Date Type Department Care Team ([facility] st Contact Info) Description 05/15/2024 Telephone [facility] [address] [place], [place] [phone] Carmen Arauz NP [address] [place], [place] [phone] Nurse Triage Social History Tobacco Use Types [...] to follow with patient. Patient reaced at [phone]. Protocol Used: Tinnitus (Adult) Protocol-Based Disposition: See [...] caller accepted this outcome. Contact pt at [phone] documented in this encounter Plan of Treatment Upcoming Encounters Date Type Department Care Team (Late st Contact Info) Description 10/19/2024 2:30 PM EDT Office Visit [facility] [address] [place] [address] Carmen Arauz NP [address] [place] [address] documented as of this encounter Visit Diagnoses Not on filedocumented in this encounter Additional Health Concerns Assessment Noted Time PHQ-9 Depression Total Score: 9 02/05/20 8:58 AM EDT documented as of this encounter Care Teams Closing Supervisor Relationship Specialty Start Date End Date Carmen Arauz NP [address] [place] [address] PCP - General Family Medicine 09/16/23 documented as of this encounter
--- OUTSIDE RECORDS SUMMARY | 2024-10-15 12:34 | XMS_ITS | Encounter Summary ---
Author Organization [employer] Address 75 [facility] 7t [place] [address] Care Team Providers Care Surveying Technician Name Role Phone Carmen Arauz NP Primary Care Provider [phone] Reason for Visit * Reason Onset Date Comments Med Refill 12/15/2023 Encounter Details Date Type Department Care Team ([facility] st Contact Info) Description 12/15/2023 Refill [facility] [address] [place], [place] [phone] Payton Mcintyre MD [address] [place], [place] [phone] Social History Tobacco Use Types Packs/Day Years [...] EDT Office Visit [facility] [address] [place] [address] Carmen Arauz NP [address] [place] [address] documented as of this encounter Visit Diagnoses Not on filedocumented in this encounter Additional Health Concerns Assessment Noted Time PHQ-9 Depression Total Score: 0 01/19/20 23 9:07 AM EDT documented as of this encounter Care Teams Surveying Technician Relationship Specialty Start Date End Date Carmen Arauz NP [address] [place] [address] PCP - General Family Medicine 09/16/23 documented as of this encounter
--- OUTSIDE RECORDS SUMMARY | 2024-10-15 12:35 | XMS_ITS | Clinical Summary ---
Author Organization [employer] Address 75 [facility] 7t [place] [address] Care Team Providers Care Drafter Name Role Phone Fouzia Arauzily YANNA Primary Care Provider [phone] Allergies Active Allergy Reactions Criticality Noted Date [...] status of the Xolair. F/u with new literary agent. ER precautions discussed. Pt sgrees with the plan. Assessment & Plan (09/16/2023 11:46 AM EDT): PRD 20 mg x 5d, counseled to discuss with literary agent (appt next month) re adjusting Xolair dose vs changing to another med so that she doesn't end up using PRD that often. Patient is aware of side effects of lobsterman use of steroids. DC Zyrtec and use desloratadine Continue Singulair FU with new PCP. Assessment & Plan (01/18/2023 2:16 PM EDT): Do not miss upcoming appointment with party supply specialist PT1 for visit will be provided Assessment & Plan (08/30/2022 9:35 AM EDT): Continue loratadine, singular, prescription for prednisone. Left message for PA specilist for status of the Xolair. F/u with new literary agent. ER precautions discussed. Pt sgrees with the [...] Department Care Team Description 10/12/2024 Patient Outreach [facility] [address] [place] [address] Carmen Arauz NP Pre-visit Planning (SDOH was already completed) 09/30/2024 Orders Only GENERIC EXTERNAL DATA DEPARTMENT Provider, Generic External Data 09/15/2024 Telephone [facility] [address] [place] [address] Carmen Arauz NP 09/15/2024 Refill [facility] [address] [place] [address] Carmen Arauz NP 09/15/2024 Refill [facility] [address] [place] [address] Ashwini Hogue MD 09/14/2024 11:00 AM EDT Office Visit [facility] [address] [place] [address] Joyce Birmingham MD Lumbar radiculopathy, chronic (Primary Dx); Dietary counseling; Exercise counseling; Overweight 09/14/2024 Travel 09/14/[address] [address] Carmen Arauz NP Appointment Request 2024 Telephone [facility] [address] [place] [address] Emerita Nash DO Appointment Request 09/10/2024 Refill [facility] [address] [place] [address] Carmen Arauz NP 09/10/2024 Refill [facility] [address] [place] [address] Carmen Arauz NP Lumbar spondylosis; Lumbar radiculopathy; Mild persistent asthma without complication 09/10/2024 Refill [facility] [address] [place] [address] Carmen Arauz NP Hyperpigmentation of skin 09/10/2024 Refill [facility] & PEDS [address] [place] [address] Ashwini Hogue MD 09/07/2024 Outside Procedure [facility] [address] [place] [address] Irene Li, OD Presbyopia (Primary Dx) 09/04/2024 9:15 AM EDT Office Visit [facility] [address] [place] [address] Irene Li, OD 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) 09/03/2024 Telephone [facility] [address] [place] [address] Carmen Arauz NP Mondays Chronic Pain Group 08/26/2024 Telephone [facility] [address] [place] [address] Carmen Arauz NP Saturday Chronic Pain Group 08/21/2024 Population Health Risk Score Community [facility] () Department [address] [place] [phone] Provider, Population Health Generic 08/07/2024 Patient Outreach [facility] [address] [place] [address] Carmen Arauz NP Pre-visit Planning (SDOH unable to reach LVM) 08/06/2024 Refill [facility] [address] [place] [address] Carmen Arauz NP 08/05/2024 Telephone [facility] [address] [place] [address] Carmen Arauz NP Scheduling for pain group 07/23/2024 Telephone [facility] [address] [place] [address] Irene Li, OD 07/21/2024 Refill [facility] [address] [place] [address] Ashwini Hogue MD from Last 3 Months [...] 10/19/2024 2:30 PM EDT Office Visit [facility] [address] [place] [address] Carmen Arauz NP [address] [place] [address] Health Maintenance Due Date Last Done Comments [...] PM EDT) HPV High Risk Negative Negative [facility] HPV Genotype 16 Negative Negative [facility] HPV Genotype 18 Negative Negative [facility] Comment:HPV testing performe d at [facility] (CLIA#[id number]), [address] [place] [phone].Testing for HPV was performed using the [employer] PAM 6800system. The presence of HPV in [...] Provider LAB BLOOD ORDERAB LES Final Result [facility] [address] [place] [address] [phone] * Pap Smear (09/30/2024 3:41 PM EDT) 09/30/2024 3:41 PM EDT 10/01/2024 11:22 AM EDT Narrative [facility] - 10/06/2024 10:50 AM EDT ----- ------- Name: Franchesca Chauhan ? Age/Sex: 49/F ? : 1975 Unit#: [id number] ?? Attend Dr: Lynne Connor CNM ?Re09/30/24 ?Status: DEP REF ? Location: HO.LNP ?Disch: ? ----- ------- SPEC : [id number] ? RECD: 10/01/24 ? STATUS: ??SOUT ? REQ NUM: [id number] ? KAELA: 09/30/24-154 ? SUBM DR: Lynne Connor CNM ? ENTERED: ??10/01/24-1131 ?SP TYPE: Pap Smr ?OTHR DR: Carmen Arauz MIDWIFE PRACTITIONER ? ORDERED: ??Pap Smear ? Interpretation ?? Satisfactory for evaluation. ?? Negative for intraepithelial lesion or malignancy. ? HPV High Risk: ??Negative ? HPV Genotyping 16: ??Negative ?? HPV Genotyping 18: ??Negative ?Clinical Information LMP: no menses Previous PAP test:Unknown date/findings ? Material Received ?? ThinPrep-Cervical Copies To: ?? Carmen Arauz MIDWIFE PRACTITIONER ?? [facility] ?? [address] [facility] ?? [place] [address] ?? [phone] ?? Lynne Connor CNM ?? [facility] ?? [address] [facility], 3rd Floor ?? [place] [address] ?? [phone] ----- ------- Signed (signature on file) JENNIFER Shaw (ASCP) 10/06/24 1050 ? ----- ------- ? END OF REPORT ? us Generic External Data Provider LAB CYTOLOGY CATRACHITO PRIEST Final Result [facility] [address] [place] [address] [phone] * BI Mammogram Screening Tomosynthesis Bilateral (10/08/2023 10:40 AM EDT) Anatomical Region Laterality Modality Breast Bilateral Mammography 10/08/2023 10:4 0 AM EDT Narrative 11/04/2023 11:24 AM EDT ? [facility] [place] ? [address] ?[place] [address] ? Mammography Report ? Signed ? Patient: Franchesca Chauhan ?MR#: [id number] ?? 88 ? : 1975 ?Acct:[id number] ? Age/Sex: 48 / F ?ADM Date: 10/08/23 ? Loc: HO.MAMMO ? Attending Dr: Carmen Arauz MIDWIFE PRACTITIONER ? Ordering Physician: Carmen Arauz MIDWIFE PRACTITIONER ?Results: 1Negati ?? ve ? Date of Service: 10/08/23 ?Follow Up: 1 Year From Orig ?? inal Mammogram ? Procedure(s): MM tomosynthesis screening BI ?? Accession Number(s): [id number] ? cc: Carmen Arauz MIDWIFE PRACTITIONER ? EXAMINATION: ?? MM SCREENING DIGITAL BREAST [...] 1120 ? DD/ 1040 ? TD/TT: ? Director Digital: ? Procedure Note Verndrew, Image - 11/04/2023 [facility] [address] [place] [address] Mammography Report Signed Patient: Shanita Chauhan#: [id number] 88 : 1975Acct:[id number] Age/Sex: 48 / FADM Date: 10/08/23 Loc: [facility] Attending Dr: Carmen Arauz MIDWIFE PRACTITIONER Ordering Physician: Carmen Arauz NPResults: 1Negati ve Date of Service: 10/08/23Follow Up: 1 Year From Orig inal Mammogram Procedure(s): MM tomosynthesis screening BI Accession Number(s): [id number] cc: Carmen Arauz MIDWIFE PRACTITIONER EXAMINATION: MM SCREENING DIGITAL BREAST TOMOSYNTHESIS, BILATERAL [...] in OV> 11/04/23 1120 DD/ 1040 TD/TT: Director Digital: us Carmen Arauz MIDWIFE PRACTITIONER IMG BI PROCEDURES Final Result * Hepatitis C Antibody Reflex (01/31/2023 8:50 AM EDT) Hepatitis C Antibody Nonreactive Nonreactive [facility] Comment:Antibodies to HCV no t detected; does not exclude early acuteHCV infection. 01/31/2023 8:50 AM EDT 01/31/2023 11:11 AM EDT us Judith Sibley MD LAB BLOOD ORDERABLES Final Result [facility] [address] [place] [address] [phone] * HIV Ab/Ag ([facility]) (01/31/2023 8:50 AM EDT) HIV AB/AG Nonreactive Nonreactive [facility] Comment:HIV-1 p24 Ag and/or HIV-1/HIV-2 Ab not detected.A test result that is nonreactive does not exclude thepossibility of exposure to or infection with HIV-1 and/orHIV-2. Nonreactive results in this assay for individualswith prior exposure to HIV-1 and/or HIV-2 may be due toantigen and antibody levels that are below the limit ofdetection of this assay.The [employer] Blood Typer HIV Ag/Ab Combo assay result andsupplemental assay results should be interpreted inconjunction with the patient's clinical presentation,history and other laboratory results. If the results areinconsistent with clinical evidence, additional testing issuggested to confirm the result. 01/31/2023 8:50 AM EDT 01/31/2023 11:11 AM EDT us Judith Sibley MD LAB BLOOD ORDERABLES Final Result [facility] [address] [place] [phone] * Lipid Panel, Standard (01/31/2023 8:50 AM EDT) Triglycerides 79 <150 mg/dL [facility] Comment:Desirable Triglyceri de: less than 150 mg/dLBorderline High Triglyceride 150-199 mg/dLHigh Triglyceride: 200-499 mg/dLVery High Triglyceride: greater than or equal to 5OO mg/dL Cholesterol 150 <200 mg/dL [facility] Comment:Desirable Cholestero l: less than 200 mg/dLBorderline High Cholesterol: 200-239 mg/dLHigh Cholesterol: greater than 239 mg/dL LDL Cholesterol Calculated 86 <100 mg/dL [facility] Comment:Desirable LDL: less than 100 [...] Sibley MD LAB BLOOD ORDERABLES Final Result [facility] [address] [place] [address] [phone] from Last 3 Months or Most Recently Relevant to Health Maintenance Insurance [facility] C3 Care Teams Drafter Relationship Specialty Start Date End Date Carmen Arauz NP [address] [place] [address] PCP - General Family Medicine 09/16/23
--- OUTSIDE RECORDS SUMMARY | 2024-10-15 12:35 | XMS_ITS | Encounter Summary ---
Author Organization [employer] Address 75 [facility] 7t [place] [address] Care Team Providers Care Hop Farmer Name Role Phone Carmen Arauz NP Primary Care Provider [phone] Reason for Visit * Reason Onset Date Comments returning phone call 08/13/2022 Encounter Details Date Type Department Care Team ([facility] st Contact Info) Description 08/13/2022 Telephone [facility] [address] [place], [place] [phone] Judith Parker MD [address] [place], [place] [phone] returning phone call Social History Tobacco Use [...] Task was 08/13/2022 Please contact pt at [phone] documented in this encounter Plan of Treatment Upcoming Encounters Date Type Department Care Team (Late st Contact Info) Description 10/19/2024 2:30 PM EDT Office Visit [facility] [address] [place] [address] Carmen Arauz NP [address] [place] [address] documented as of this encounter Visit Diagnoses Not on filedocumented in this encounter Care Teams Hop Farmer Relationship Specialty Start Date End Date Carmen Arauz NP [address] [place] [address] PCP - General Family Medicine 09/16/23 Alla Oliveira Condenser Operator 07/11/23 09/16/23 documented as of this encounter
--- OUTSIDE RECORDS SUMMARY | 2024-10-15 12:35 | XMS_ITS | Encounter Summary ---
Author Organization [employer] Address 75 [facility] 7t [place] [address] Care Team Providers Care Poster Name Role Phone Fouzia Arauzily YANNA Primary Care Provider [phone] Reason for Visit * Reason Onset Date Comments triage 08/16/2022 Encounter Details Date Type Department Care Team ([facility] st Contact Info) Description 08/16/2022 Telephone [facility] [address] [place], [place] [phone] Judith Parker MD [address] [place], [place] [phone] triage Social History Tobacco Use Types Packs/Day [...] 10/19/2024 2:30 PM EDT Office Visit [facility] [address] [place] [address] Carmen Arauz NP [address] [place] [address] documented as of this encounter Visit Diagnoses Not on filedocumented in this encounter Care Teams Poster Relationship Specialty Start Date End Date Carmen Arauz NP [address] [place] [address] PCP - General Family Medicine 09/16/23 Alla Oliveira Bass Singer 07/11/23 09/16/23 documented as of this encounter
--- OUTSIDE RECORDS SUMMARY | 2024-10-15 12:35 | XMS_ITS | Encounter Summary ---
Author Organization [employer] Address [address] [facility] [address] 7t [place] [address] Care Team Providers Care Head Waiter/Waitress Name Role Phone Carmen Arauz NP Primary Care Provider [phone] Encounter Details Date Type Department Care Team ([facility] st Contact Info) Description 05/25/2024 Telephone [facility] [address] [place], [place] [phone] Carmen Arauz NP [address] [place] [address] Social History Tobacco Use Types Packs/Day Years [...] [facility] [address] [place] [address] Carmen Arauz NP [address] [place] [address] documented as of this encounter Visit Diagnoses Not on filedocumented in this encounter Additional Health Concerns Assessment Noted Time PHQ-9 Depression Total Score: 9 02/05/20 24 8:58 AM EDT documented as of this encounter Care Teams Head Waiter/Waitress Relationship Specialty Start Date End Date Carmen Arauz NP [address] [place] [address] PCP - General Family Medicine 09/16/23 documented as of this encounter
--- OUTSIDE RECORDS SUMMARY | 2024-10-15 12:35 | XMS_ITS | Encounter Summary ---
Author Organization [employer] Address 75 [facility] 7t [place] [address] Care Team Providers Care Ict Business Analyst Name Role Phone Carmen Arauz NP Primary Care Provider [phone] Reason for Visit * Reason Comments Pre-visit Planning SDOH was already com pleted Encounter Details Date Type Department Care Team ([facility] Contact Info) Description 10/12/2024 Patient Outreach [facility] [address] [place], [place] [phone] Carmen Arauz NP [address] [place] [address] Pre-visit Planning (SDOH was already completed) Social [...] Description 10/19/2024 2:30 PM EDT Office Visit [facility] [address] [place] [address] Carmen Arauz NP [address] [place] [address] documented as of this encounter Visit Diagnoses Not on filedocumented in this encounter Additional Health Concerns Assessment Noted Time PHQ-9 Depression Total Score: 9 02/05/20 24 8:58 AM EDT documented as of this encounter Care Teams Ict Business Analyst Relationship Specialty Start Date End Date Carmen Arauz NP [address] [place] [address] PCP - General Family Medicine 09/16/23 documented as of this encounter
--- OUTSIDE RECORDS SUMMARY | 2024-10-15 12:35 | XMS_ITS | Encounter Summary ---
Author Organization [employer] Address [address] [facility] [address] 7[address] [place] [address] Care Team Providers Care Silver Chaser Name Role Phone Carmen Arauz NP Primary Care Provider [phone] Reason for Visit * Reason Onset Date Comments Med Refill 09/10/2024 Encounter Details Date Type Department Care Team ([facility] st Contact Info) Description 09/10/2024 Refill [facility] [address] [place], [place] [phone] Carmen Arauz NP [address] [place] [address] Social History Tobacco Use Types Packs/Day Years [...] Description 10/19/2024 2:30 PM EDT Office Visit [facility] [address] [place] [address] Carmen Arauz NP [address] [place] [address] documented as of this encounter Visit Diagnoses Not on filedocumented in this encounter Additional Health Concerns Assessment Noted Time PHQ-9 Depression Total Score: 9 02/05/20 24 8:58 AM EDT documented as of this encounter Care Teams Silver Chaser Relationship Specialty Start Date End Date Carmen Arauz NP [address] [place] [address] PCP - General Family Medicine 09/16/23 documented as of this encounter
--- OUTSIDE RECORDS SUMMARY | 2024-10-15 12:35 | XMS_ITS | Encounter Summary ---
Author Organization [employer] Address 75 [facility] 7t [place] [address] Care Team Providers Care Vine Pruner Name Role Phone Carmen Arauz NP Primary Care Provider [phone] Reason for Visit * Reason Onset Date Comments Med Refill 09/10/2024 Encounter Details Date Type Department Care Team ([facility] st Contact Info) Description 09/10/2024 Refill [facility] [address] [place] [address] Ashwini Hogue MD [address] [place] [address] Social History Tobacco Use Types Packs/Day Years [...] PM EDT Office Visit [facility] [address] [place] [address] Carmen Arauz NP [address] [place] [address] documented as of this encounter Visit Diagnoses Not on filedocumented in this encounter Additional Health Concerns Assessment Noted Time PHQ-9 Depression Total Score: 9 02/05/20 24 8:58 AM EDT documented as of this encounter Care Teams Vine Pruner Relationship Specialty Start Date End Date Carmen Arauz NP [address] [place] [address] PCP - General Family Medicine 09/16/23 documented as of this encounter
--- OUTSIDE RECORDS SUMMARY | 2024-10-15 12:35 | XMS_ITS | Encounter Summary ---
Author Organization [employer] Address 75 [facility] 7t [place] [address] Care Team Providers Care Global Program Manager Name Role Phone Carmen Arauz NP Primary Care Provider [phone] Reason for Visit * Reason Onset Date Comments Med Refill 09/10/2024 Encounter Details Date Type Department Care Team (Late st Contact Info) Description 09/10/2024 Refill [facility] [address] [place], [place] [phone] Carmen Arauz NP [address] [place], [place] [phone] Hyperpigmentation of skin Social History Tobacco Use [...] EDT Office Visit [facility] [address] [place] [address] Carmen Arauz NP [address] [place] [address] documented as of this encounter Visit Diagnoses Diagnosis Hyperpigmentation of skin Other dyschromia documented in this encounter Additional Health Concerns Assessment Noted Time PHQ-9 Depression Total Score: 9 02/05/20 24 8:58 AM EDT documented as of this encounter Care Teams Global Program Manager Relationship Specialty Start Date End Date Carmen Arauz NP [address] [place] [address] PCP - General Family Medicine 09/16/23 documented as of this encounter
--- OUTSIDE RECORDS SUMMARY | 2024-10-15 12:35 | XMS_ITS | Encounter Summary ---
Author Organization [employer] Address 75 [facility] 7t [place] [address] Care Team Providers Care Nurses Superintendent Name Role Phone Carmen Arauz NP Primary Care Provider [phone] Encounter Details Date Type Department Care Team ([facility] Contact Info) Description 08/10/2022 Abstract [facility] MED[facility]INE [address] [place] [address] [phone] Judith Parker MD [address] [place] [address] [phone] Social History Tobacco Use Types Packs/Day Years [...] Upcoming Encounters Date Type Department Care Team ([facility] Contact Info) Description 10/19/2024 2:30 PM EDT Office Visit [facility] [address] [place] [address] [phone] Carmen Arauz NP [address] [place] [address] [phone] documented as of this encounter Visit Diagnoses Not on filedocumented in this encounter Care Teams Nurses Superintendent Relationship Specialty Start Date End Date Carmen Arauz NP [address] [place] [address] PCP - General Family Medicine 09/16/23 Alla Oliveira Licensed Physical Therapy Assistant 07/11/23 09/16/23 documented as of this encounter
--- OUTSIDE RECORDS SUMMARY | 2024-10-15 12:35 | XMS_ITS | Encounter Summary ---
Author Organization [employer] Address [address] [facility] 7t [place] [address] Care Team Providers Care Sales Development Coordinator Name Role Phone Carmen Arauz NP Primary Care Provider [phone] Reason for Visit * Reason Onset Date Comments Med Refill 04/15/2024 Encounter Details Date Type Department Care Team (Late st Contact Info) Description 04/15/2024 Refill [facility] [address] [place], [place] [phone] Carmen Arauz NP [address] [place], [place] [phone] Lumbar spondylosis; Lumbar radiculopathy Social History Tobacco [...] Visit [facility] [address] [place] [address] Carmen Arauz NP [address] [place] [address] documented as of this encounter Visit Diagnoses Diagnosis Lumbar spondylosis Lumbosacral spondylosis without myelopathy Lumbar radiculopathy Thoracic or lumbosacral neuritis or radiculitis, unspecified documented in this encounter Additional Health Concerns Assessment Noted Time PHQ-9 Depression Total Score: 9 02/05/20 24 8:58 AM EDT documented as of this encounter Care Teams Sales Development Coordinator Relationship Specialty Start Date End Date Carmen Arauz NP [address] [place] [address] PCP - General Family Medicine 09/16/23 documented as of this encounter
--- OUTSIDE RECORDS SUMMARY | 2024-10-15 12:35 | XMS_ITS | Encounter Summary ---
Author Organization [employer] Address 75 [facility] 7t [place] [address] Care Team Providers Care Brand Strategist Name Role Phone Carmen Arauz NP Primary Care Provider [phone] Reason for Visit * Reason Onset Date Comments Med Refill 04/15/2024 Encounter Details Date Type Department Care Team ([facility] st Contact Info) Description 04/15/2024 Refill [facility] 230 [place], [place] [phone] Judith Parker MD 230 [place] [address] Social History Tobacco Use Types Packs/Day Years [...] Visit [facility] 230 [place] [address] Carmen Arauz NP 230 [place] [address] documented as of this encounter Visit Diagnoses Not on filedocumented in this encounter Additional Health Concerns Assessment Noted Time PHQ-9 Depression Total Score: 9 02/05/20 24 8:58 AM EDT documented as of this encounter Care Teams Brand Strategist Relationship Specialty Start Date End Date Carmen Arauz NP [address] [place] [address] PCP - General Family Medicine 09/16/23 documented as of this encounter
--- OUTSIDE RECORDS SUMMARY | 2024-10-15 12:35 | XMS_ITS | Encounter Summary ---
Author Organization [employer] Address 75 [facility] 7t [place] [address] Care Team Providers Care Air Hammer Stripper Name Role Phone ReglaCarmen YANNA Primary Care Provider [phone] Reason for Visit * Reason Onset Date Comments Nurse Triage 06/27/2023 TelephoneCall 06/27/2023 Encounter Details Date Type Department Care Team ([facility] st Contact Info) Description 06/27/2023 Telephone [facility] 230 [place], [place] [phone] Judith Parker MD 230 [place], [place] [phone] Nurse Triage; TelephoneCall Social History Tobacco Use [...] pt is having. Please contact pt at [phone] * Telephone Encounter - Petrona Felix RN - 06/27/2023 4:33 PM EST Called pt. She states that she is looking for an appt. With PCP. Pt. Is seeing pain management and they want to start doing back injections. Pt. States I used to get back injections when I lived in [place] and the injections do not work . [...] 2:30 PM EDT Office Visit [facility] [address] [place] [address] Carmen Arauz NP [address] [place] [address] documented as of this encounter Visit Diagnoses Not on filedocumented in this encounter Additional Health Concerns Assessment Noted Time PHQ-9 Depression Total Score: 0 01/19/20 23 9:07 AM EDT documented as of this encounter Care Teams Air Hammer Stripper Relationship Specialty Start Date End Date Carmen Arauz NP [address] [place] [address] PCP - General Family Medicine 09/16/23 Alla Oliveira Compensation Vice President 07/11/23 09/16/23 documented as of this encounter
--- OUTSIDE RECORDS SUMMARY | 2024-10-15 12:35 | XMS_ITS | Encounter Summary ---
Author Organization [employer] Address [address] [facility] [address] 7[address] [place] [address] Care Team Providers Care It Support Manager Name Role Phone Carmen Arauz NP Primary Care Provider [phone] Reason for Visit * Reason Onset Date Comments Med Refill 04/15/2024 Encounter Details Date Type Department Care Team ([facility] st Contact Info) Description 04/15/2024 Refill [facility]INE 230 [place], [place] [phone] Name, MD Harvinder 230 [place] [address] Mild persistent asthma without complication Social History [...] EDT Office Visit [facility] [address] [place] [address] Carmen Arauz NP 230 [place] [address] documented as of this encounter Visit Diagnoses Diagnosis Mild persistent asthma without complication documented in this encounter Additional Health Concerns Assessment Noted Time PHQ-9 Depression Total Score: 9 02/05/20 24 8:58 AM EDT documented as of this encounter Care Teams It Support Manager Relationship Specialty Start Date End Date Carmen Arauz NP [address] [place] [address] PCP - General Family Medicine 09/16/23 documented as of this encounter
--- OUTSIDE RECORDS SUMMARY | 2024-10-15 12:35 | XMS_ITS | Encounter Summary ---
Author Organization [employer] Address 75 [facility] 7 [place] [address] Care Team Providers Care Deputy Sheriff Building Guard Name Role Phone Carmen Arauz NP Primary Care Provider [phone] Reason for Visit * Reason Onset Date Comments Appointment Request 2024 Encounter Details Date Type Department Care Team ([facility] st Contact Info) Description 2024 Telephone [facility] 230 [place], [place] [phone] Emerita Nash DO [address] [place], [place] [phone] Appointment Request Social History Tobacco Use Types [...] requesting a to r/s appt from 08/14/24. Finishing Range Operator advised pt that there is no appt available and told pt that she would be put on a recall for whenever there is a opening. Contact pt at [phone] documented in this encounter Plan of Treatment Upcoming Encounters Date Type Department Care Team (Late st Contact Info) Description 10/19/2024 2:30 PM EDT Office Visit [facility] [address] [place] [address] Carmen Arauz NP [address] [place] [address] documented as of this encounter Visit Diagnoses Not on filedocumented in this encounter Additional Health Concerns Assessment Noted Time PHQ-9 Depression Total Score: 9 02/05/20 24 8:58 AM EDT documented as of this encounter Care Teams Deputy Sheriff Building Guard Relationship Specialty Start Date End Date Carmen Arauz NP [address] [place] [address] PCP - General Family Medicine 09/16/23 documented as of this encounter
== END 2024-10-15 11:54 | disposition home or self-care (01) ==
LOC: HO.PMCPRC 11:04
PROVIDERS: PCP Nurse Practitioner Family; Visit Provider Internal Medicine
DX: M47.816 Spondylosis without myelopathy or radiculopathy, lumbar region (principal); Q76.49 Other congenital malformations of spine, not associated with scoliosis
CPT/HCPCS: 64493; 64494

== ENCOUNTER 2024-10-22 09:11 | Outpatient (AMB) | payer MEDICAID, SELFPAY ==
--- NOTE | 2024-10-22 09:17 | A.OFFVIS_ITS ---
Vital Signs 10/22/24 09:21 Height 5 ft 5 in Weight 176 lb BMI 29.3 BP 132/65 Blood Pressure Location Rt brachial Position Sitting Pulse 67 Pulse Source Pulse Oximeter Pulse Oximetry (%) 99 Oxygen Delivery Method Room Air Intake Visit Reasons: s/p dg Dx L3-L4-DR-L5 MBB Intake Note: Pain today 01/17 Train Brake Operator Required: No Accompanied by: Self / Same As Patient Allergies Penicillins [PENICILLINS] Allergy (Unknown, Verified 10/22/24 09:23) HIVES HPI Comments Details: The patient is a 49-year-old female presenting with unresolved lumbar and sacroiliac joint pain. After bilateral diagnostic L3, L4, L5 medial branch bloc ks on 10/15/24, she experienced no relief. Right therapeutic sacroiliac joint injection also failed to alleviate symptoms, leading to an exacerbation of pain. Sensitivity in the right sided lower lumbar and sacroiliac region remains problematic, influencing daily life and prompting consideration of alternative management strategies given previous interventions' lack of success. Per Dr. 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 She may benefit from a targeted corticosteroid injection to the right L5-S1 facet and articulation of the transverse process with the sacrum and iliac crest. Patient reports she is no longer interested in interventional treatments, including injections and considering alternative pain management options. Past Procedures: 10/15/24: Bilateral Diagnostic L3-L4 DR L5 MBB-0% pain relief 11/05/23: Right Therapeutic SIJ injection-0% pain relief PRIOR: Patient presents today for follow-up after Neurosurgical evaluation on 09/25/[address] Aly. Patient reports she was recommended to address her right sacroiliac joint pain. Patient states most of her back pain is localized to the right side and extends to right sacral area and lateral hip with intermittent radiation into her right lower leg. She is also undergoing orthopedic ev aluation for bilateral knee pain worse on the right and pending right knee MRI to rule out tearing of her medial menisci. Her walking capacity, mobility and functioning is limited due to significant pain. She reports no pain relief with short script of tramadol previously and continues to regularly take Tylenol Arthritis, Ibuprofen 800 mg Q8H, methocarbamol and lidocaine patches with continued symptoms. Patient denies any fever, abdominal or groin pain, foot drop, bladder or bowel incontinence or saddle anesthesia. PRIOR: Patient is a pleasant 47 years old female with prior lumbar spondylosis, multiple surgeries for left wrist, chronic lower back pain, left knee pain, asthma, lumbar radiculopathy presents today for initial evaluation for low back pain. Denies any recent or past injury, trauma, or injury. Patient was followed by [place] [facility] prior to moving back to [place] and was referred to [facility] and [facility] for treatments. Patient has declined injections for both pain cl inics as she has had multiple back injections in [place] which did not improve her pain or functioning and were very painful. She sees [facility] for left knee pain. Her back pain is axial and also radiates into her bilateral lateral hips and into lower legs anteriorly and posteriorly. SLR testing is positive only on the right. Patient also has significant tenderness in the projection of both sacroiliac joint areas. Reports numbness and tingling with prolonged sitting and standing in her lower legs and feet. Chronic pain negatively affects her daily activities, functioning, mobility, mood, sleep and social interactions. Denies any fever, weight loss, abdominal pain, foot drop, bladder or bowel incontinence or saddle anesthesia. Reports lower extremity intermittent weakness with severe pain in her back or left knee. Patient reports she was sent to another physical therapy by [facility] recently but cannot pursue it at this time due to significant lower back pain especially with bending. She reports completing PT, chiropractic adjustments and massages in [place] with minimal and short term improvements. Location Low back pain, at times radiates to bilateral hips Duration Chronic pain for 4 years Characteristics of symptom or complaint Aching, stabbing, sharp, throbbing, aching Aggravating or associated factors Movements, bending, laying flat, walking, sitting, standing Relieving factors Tylenol, Ibuprofen, tried gabapentin and baclofen Treatment PT, chiropractic therapy, massages, multiple back injections in [facility] Medical History Back pain GERD (gastroesophageal reflux disease) Depression Asthma Bilateral knee pain Lumbar back pain with radiculopathy affecting right lower extremity Chronic urticaria Surgical History History of esophagogastroduodenoscopy (EGD) H/O colonoscopy S/P right knee arthroscopy (03/20/24) H/O tubal ligation Hx of hand surgery (~2013) Family History Father Throat cancer Family/Other Breast cancer Social History Are you a primary health care technician to a significant other at home: No Do you presently have visiting nurse or other home services: No Alcohol intake: never Patient Tobacco Use Status: Current everyday Tobacco user Tobacco use type: Cigarette Cigarette Packs Per Day: 1.0 Cigarettes Per Day: 6 Substance Use Type: Marijuana Current occupational status: unemployed Current occupation: rt handed Female Reproductive History Menstrual Age of Menarche: 15 Review of Systems Const All systems reviewed & are unremarkable except as noted in HPI and below Physical Exam Vital Signs: Last Vital Signs Pulse 67 10/22/24 09:21 BP 132/65 10/22/24 09:21 Pulse Ox 99 10/22/24 09:21 Oxygen Delivery Method Room Air 10/22/24 09:21 BMI result Body Mass Index 29.3 General: Appears afebrile. Alert and oriented. Mood and affect appropriate. Follows and participates in conversation appropriately. Respiratory effort is unlabored. No cough. Able to transition from sit to stand unassisted. General: Yes no CVA tenderness Back/Spine/Pelvis Other: Limited lumbar ROM due to pain. Lumbar flexion and flexion is limited, reproduces mild to moderate pain. Demonstrates 5/5 strength of quadriceps bilaterally as well as flexion/dorsiflexion of bilateral feet against res istance. 2+ pedal pulses bilaterally. Facet loading test positive bilaterally. Anthony?s, Gaenslen, Pelvic compression and Stinchfield tests are positive bilaterally, right>left. No groin pain with I/E hip rotations. Valsalva maneuver negative. Back: no CVA tenderness and back tenderness Cervical Spine: cervical ROM normal, cervical muscular tenderness, pain with cervical ROM and No Cervical spine tenderness Thoracic/Lumbar Spine: thoracic and lumbar spine normal to inspection, Thoracic/lumbar spine scar(s), Lasegue's sign negative, straight leg raise negative bilaterally, pain with thoraco-lumbar ROM, paraspinal muscle tenderness, thoraco-lumbar ROM limited, No thoracic spinal tenderness and lumbar spinal tenderness (L4-S1) Pelvis: buttock tenderness on the right Sacroiliac joints: bilaterally (Right>Left) tender to palpation Extrem General: Yes capillary refill normal, Yes no clubbing, cyanosis or edema and Yes no calf tenderness Assessment & Plan Assessment & Plan (1) Lumbar back pain with radiculopathy affecting right lower extremity: Code(s): M54.16 - Radiculopathy, lumbar region Category: Medical (2) Lumbar spondylosis: Code(s): M47.816 - Spondylosis without myelopathy or radiculopathy, lumbar region Category: Medical (3) Lumbar degenerative disc disease: Code(s): M51.369 - Other intervertebral disc degeneration, lumbar region without mention of lumbar back pain or lower extremity pain Category: Medical (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 Patient elected to discontinue interventional treatments due to ineffective results. I recommend alternative therapies, including chiropractic manipulation, acupuncture, aqua therapy, and a referral to Physiatry for an alternative pain management approach. I also informed patient that acupuncture is available to her at [facility]. All questions and concerns have been answered and patient agreed with the plan. Follow up as needed. Patient was informed and verbally consented to the use of an ambient scribe for clinic note documentation during this visit. Orders: Referrals Physiatry Referral M47.816 - Spondylosis without myelopathy or radiculopathy, lumbar region, M51.369 - Other intervertebral disc degeneration, lumbar region without mention of lumbar back pain or lower extremity pain, M54.16 - Radiculopathy, lumbar region, Q76.49 - Other congenital malformations of spine, not associated with scoliosis Coding Level of Care Code Est Pt Level 3 (15442) Complex EM visit Add On G2211 Diagnoses Lumbar back pain with radiculopathy affecting right lower extremity M54.16 Lumbar spondylosis M47.816 Lumbar degenerative disc disease M51.369 Bertolotti syndrome Q76.49
[2024-10-22 09:21] VITALS: BP 132/65; PULSE 67; O2SAT 99; BMI 29.3
--- OUTSIDE RECORDS SUMMARY | 2024-10-22 09:44 | XMS_ITS | Encounter Summary ---
Author Organization [employer] Address [address] [facility] [address] 7t [place] [address] Care Team Providers Care Die Repair Name Role Phone Carmen Arauz NP Primary Care Provider [phone] Emerita Nash DO Primary Care Provider [phone] Reason for Visit * Reason Onset Date Comments Med Refill 02/18/2024 Encounter Details Date Type Department Care Team (Late st Contact Info) Description 02/18/2024 Refill [facility]INE 230 [place] [address] Payton Mcintyre MD [address] [place], [place] [phone] Social History Tobacco Use Types Packs/Day Years [...] as of this encounter Plan of Treatment Not on file documented as of this encounter Visit Diagnoses Not on filedocumented in this encounter Additional Health Concerns Assessment Noted Time PHQ-9 Depression Total Score: 9 02/05/20 24 8:58 AM EDT documented as of this encounter Care Teams Die Repair Relationship Specialty Start Date End Date Carmen Arauz NP 230 [place] [address] PCP - General Family Medicine 09/16/23 10/19/24 Emerita Nash DO 230 [place] [address] PCP - General Family Medicine 10/20/24 documented as of this encounter
--- OUTSIDE RECORDS SUMMARY | 2024-10-22 09:44 | XMS_ITS | Encounter Summary ---
Author Organization [employer] Address [address] [facility] [address] 7[address] [place] [address] Care Team Providers Care Template Checker Name Role Phone Carmen Arauz NP Primary Care Provider [phone] Emerita Nash DO Primary Care Provider [phone] Reason for Visit * Reason Onset Date Comments Med Refill 05/15/2024 Encounter Details Date Type Department Care Team (Late st Contact Info) Description 05/15/2024 Refill [facility]INE 230 [place], [place] [phone] Judith Parker MD [address] [place], [place] [phone] Mild intermittent asthma, unspecified whether complicated Social [...] documented as of this encounter Care Teams Template Checker Relationship Specialty Start Date End Date Carmen Arauz NP 230 [place] [address] PCP - General Family Medicine 09/16/23 10/19/24 Emerita Nash DO [address] [place] [address] PCP - General Family Medicine 10/20/24 documented as of this encounter
--- OUTSIDE RECORDS SUMMARY | 2024-10-22 09:44 | XMS_ITS | Encounter Summary ---
Author Organization [employer] Address [address] [facility] [address] 7[address] [place] [address] Care Team Providers Care Illuminating Engineer Name Role Phone Carmen Arauz NP Primary Care Provider [phone] Emerita Nash DO Primary Care Provider [phone] Reason for Visit * Reason Onset Date Comments Med Refill 11/25/2023 Encounter Details Date Type Department Care Team (Late st Contact Info) Description 11/25/2023 Refill [facility] MEDICINE 230 [place], [place] [phone] Judith Parker MD 230 [place], [place] [phone] Mild persistent asthma without complication Social History [...] documented as of this encounter Care Teams Illuminating Engineer Relationship Specialty Start Date End Date Carmen Arauz NP 230 [place] [address] PCP - General Family Medicine 09/16/23 10/19/24 Emerita Nash DO 230 [place] [address] PCP - General Family Medicine 10/20/24 documented as of this encounter
--- OUTSIDE RECORDS SUMMARY | 2024-10-22 09:44 | XMS_ITS | Encounter Summary ---
Author Organization [employer] Address [address] [facility] 7 [place] [address] Care Team Providers Care Pipe Processor Name Role Phone Emerita Nash DO Primary Care Provider + [phone] Reason for Visit * Reason Onset Date Comments PT1 Submitted 10/21/2024 Encounter Details Date Type Department Care Team ([facility] st Contact Info) Description 10/21/2024 Telephone [facility] MEDICINE 230 [place], [place] [phone] Emerita Nash DO 230 [place], [place] [phone] PT1 Submitted Social History Tobacco Use Types Packs/Day Years [...] encounter Miscellaneous Notes * Telephone Encounter - Nini Putnam - 10/21/2024 12:12 PM EDT PT-1 submitted for patient. They will receive a letter of approval or denial in the mail. PT-1 Request Number [id number] is Pending. Patients address on [address] [address]. Location: [address] [address] (Allergy. documented in this encounter Plan of Treatment Not on file documented as of this encounter Visit Diagnoses Not on filedocumented in this encounter Additional Health Concerns Assessment Noted Time PHQ-9 Depression Total Score: 9 02/05/20 24 8:58 AM EDT documented as of this encounter Care Teams Pipe Processor Relationship Specialty Start Date End Date Emerita Nash DO [address] [place] [address] PCP - General Family Medicine 10/20/24 documented as of this encounter
--- OUTSIDE RECORDS SUMMARY | 2024-10-22 09:44 | XMS_ITS | Encounter Summary ---
Author Organization [email or web address] Address [address] [place] [address] 7 [place] [address] Care Team Providers Care Manager Of It Name Role Phone Carmen Arauz NP Primary Care Provider [phone] Reason for Referral * Consultation (Routine) - Authorized Specialty Diagnoses / Procedures Referred By Kell castellano Referred To Contact Family Medicine Diagnoses Hyperpigmentation of skin Carmen Arauz NP [address] [place] [address] Phone: tel: fax: Referral ID Status Reason Start Date Expiration Date Visits Requested Visits Authorized [id number] Authorized Specialty Services Required 10/19/2024 10/19/2025 1 1 Encounter Details Date Type Department Care Team (Late st Contact Info) Description 10/19/2024 2:30 PM EDT Office Visit [facility] MEDICINE [address] [place], [place] [phone] Carmen Arauz NP [address] [place], [place] [phone] Allergy, initial encounter (Primary Dx); Acute low back pain, unspecified back pain laterality, unspecified whether sciatica present; Hyperpigmentation of skin Social History Tobacco Use [...] AM EST documented as of this encounter Last Filed Vital Signs Vital Sign Reading Time Taken Comments Blood Pressure 108/56 10/19/2024 2:49 PM EDT Pulse 61 10/19/2024 2:49 PM EDT Temperature 36.5 ??C (97.7 ??F) 10/19/2024 2:49 PM ED T Respiratory Rate 20 10/19/2024 2:49 PM EDT Oxygen Saturation - - Inhaled Oxygen Concentration - - Weight 81.4 kg (179 lb 8 oz) 10/19/2024 2:49 PM EDT Height 165.1 cm (5' 5 ) 10/19/2024 2:49 PM EDT Body Mass Index 29.87 10/19/2024 2:49 PM EDT documented in this encounter Plan of Treatment Scheduled Orders Name Type Priority Associated Diagnoses Orde r Schedule SPENCER Screen,IFA, with Reflex to Titer and Pattern Lab Routine Acute low back pain, unspecified back pain laterality, unspecified whether sciatica present Hyperpigmentation of skin Expected: 10/19/2024 (Approximate), Expires: 10/19/2025 Scheduled Referrals Name Type Priority Associated Diagnoses Orde r Schedule Referral to [facility] Derm Skin Adult Outpatient Referral Routine Hyperpigmentation of skin Expected: 10/19/2024 (Approximate), Expires: 10/19/2025 documented as of this encounter Visit Diagnoses Diagnosis Allergy, initial encounter- Primary Acute low back pain, unspecified back pain laterality, unspecified whether sciatica present Hyperpigmentation of skin Other dyschromia documented in this encounter Additional Health Concerns Assessment Noted Time PHQ-9 Depression Total Score: 9 02/05/20 24 8:58 AM EDT documented as of this encounter Care Teams Manager Of It Relationship Specialty Start Date End Date Carmen Arauz NP [address] [place] [address] PCP - General Family Medicine 09/16/23 10/19/24 documented as of this encounter
--- OUTSIDE RECORDS SUMMARY | 2024-10-22 09:44 | XMS_ITS | Clinical Summary ---
Author Organization [facility] Address [address] [place] [id number] Phone Care Team Providers Care Association Executive Name Role Phone Physician, Pcp Unknown Primary [...] topic Insurance MEDICAID - [place] Care Teams Association Executive Relationship Specialty Start Date End Date Physician, Pcp Unknown PCP - General 06/01/24
--- OUTSIDE RECORDS SUMMARY | 2024-10-22 09:44 | XMS_ITS | Encounter Summary ---
Author Organization [employer] Address [address] 7[address] [place] [address] Care Team Providers Care Solid Center Winder Name Role Phone Emerita Nash Primary Care Provider [phone] Encounter Details Date Type Department Care Team (Latest Contact Info) Description 10/20/2024 Travel Social History Tobacco Use Types Packs/Day [...] documented as of this encounter Care Teams Solid Center Winder Relationship Specialty Start Date End Date Emerita Nash DO [address] [place] [address] PCP - General Family Medicine 10/20/24 documented as of this encounter
--- OUTSIDE RECORDS SUMMARY | 2024-10-22 09:44 | XMS_ITS | Encounter Summary ---
Author Organization [employer] Address [address] 7t [place] [address] Care Team Providers Care Regenerator Operator Name Role Phone Carmen Arauz NP Primary Care Provider [phone] Emerita Nash DO Primary Care Provider + [phone] Reason for Visit * Reason Onset Date Comments Med Refill 06/22/2024 Encounter Details Date Type Department Care Team ([facility] st Contact Info) Description 06/22/2024 Refill [facility] [address] [place] [address] Ashwini Hogue MD [address] [place] [address] Social History Tobacco Use Types Packs/Day Years [...] documented as of this encounter Care Teams Regenerator Operator Relationship Specialty Start Date End Date Carmen Arauz NP [address] [place] [address] PCP - General Family Medicine 09/16/23 10/19/24 Emerita Nash DO [address] [place] [address] PCP - General Family Medicine 10/20/24 documented as of this encounter
--- OUTSIDE RECORDS SUMMARY | 2024-10-22 09:44 | XMS_ITS | Encounter Summary ---
Author Organization [employer] Address [address] 7t [place] [address] Care Team Providers Care Business Account Leader Name Role Phone Carmen Arauz NP Primary Care Provider [phone] Emerita Nash DO Primary Care Provider [phone] Reason for Visit * Reason Onset Date Comments Med Refill 06/22/2024 Encounter Details Date Type Department Care Team (Late st Contact Info) Description 06/22/2024 Refill [facility] [address] [place], [place] [phone] Carmen Arauz NP [address] [place], [place] [phone] Mild persistent asthma without complication Social History [...] TC from pt asking about referral for OVERLAY OPERATOR. Nurse informed pt that a message has [...] documented as of this encounter Care Teams Business Account Leader Relationship Specialty Start Date End Date Carmen Arauz NP [address] [place] [address] PCP - General Family Medicine 09/16/23 10/19/24 Emerita Nash DO [address] [place] [address] PCP - General Family Medicine 10/20/24 documented as of this encounter
--- OUTSIDE RECORDS SUMMARY | 2024-10-22 09:44 | XMS_ITS | Encounter Summary ---
Author Organization [employer] Address [address] [facility] 7 [place] [address] Care Team Providers Care Missile Technician Name Role Phone Emerita Nash DO Primary Care Provider + [phone] Reason for Visit * Reason Comments Transfer patient Encounter Details Date Type Department Care Team ([facility] st Contact Info) Description 10/20/2024 1:15 PM EDT Office Visit [facility] MEDICINE [address] [place], [place] [phone] Emerita Nash DO [address] [place], [place] [phone] Routine history and physical examination of adult (Primary Dx); Encounter for immunization Social History Tobacco Use Types Packs/Day Years [...] Sign Reading Time Taken Comments Blood Pressure 106/59 10/20/2024 1:35 PM EDT Pulse 61 10/20/2024 1:35 PM EDT Temperature 36.2 ??C (97.2 ??F) 10/20/2024 1:35 PM ED T Respiratory Rate 20 10/20/2024 1:35 PM EDT Oxygen Saturation 99% 10/20/2024 1:35 PM EDT Inhaled Oxygen Concentration - - Weight 82.2 kg (181 lb 2 oz) 10/20/2024 1:35 PM EDT Height 165.1 cm (5' 5 ) 10/20/2024 1:35 PM EDT Body Mass Index 30.14 10/20/2024 1:35 PM EDT documented in this encounter Plan of Treatment Not on file documented as of this encounter Visit Diagnoses Diagnosis Routine history and physical examination of adult- Primary Encounter for immunization documented in this encounter Additional Health Concerns Assessment Noted Time PHQ-9 Depression Total Score: 9 02/05/20 24 8:58 AM EDT documented as of this encounter Care Teams Missile Technician Relationship Specialty Start Date End Date Emerita Nash DO [address] [place] [address] PCP - General Family Medicine 10/20/24 documented as of this encounter
--- OUTSIDE RECORDS SUMMARY | 2024-10-22 09:44 | XMS_ITS | Encounter Summary ---
Author Organization [employer] Address [address] [place] [address] Care Team Providers Care Starter Mechanic Name Role Phone Carmen Arauz NP Primary Care Provider [phone] Emerita Nash DO Primary Care Provider + [phone] Reason for Visit * Reason Onset Date Comments Med Refill 10/22/2023 Encounter Details Date Type Department Care Team (Late st Contact Info) Description 10/22/2023 Refill [facility] [address] [place], [place] [phone] Payton Mcintyre MD [address] [place], [place] [phone] Social History Tobacco Use Types Packs/Day Years [...] documented as of this encounter Care Teams Starter Mechanic Relationship Specialty Start Date End Date Carmen Arauz NP [address] [place] [address] PCP - General Family Medicine 09/16/23 10/19/24 Emerita Nash DO [address] [place] [address] PCP - General Family Medicine 10/20/24 documented as of this encounter
--- OUTSIDE RECORDS SUMMARY | 2024-10-22 09:44 | XMS_ITS | Encounter Summary ---
Author Organization [employer] Address [address] 7t [place] [address] Care Team Providers Care Electronic Organ Mechanic Name Role Phone Carmen Arauz NP Primary Care Provider [phone] Emerita Nash DO Primary Care Provider + [phone] Reason for Visit * Reason Onset Date Comments Med Refill 11/25/2023 Encounter Details Date Type Department Care Team (Late st Contact Info) Description 11/25/2023 Refill [facility] [address] [place], [place] [phone] Payton Mcintyre MD [address] [place], [place] [phone] Social History Tobacco Use Types Packs/Day Years [...] documented as of this encounter Care Teams Electronic Organ Mechanic Relationship Specialty Start Date End Date Carmen Arauz NP [address] [place] [address] PCP - General Family Medicine 09/16/23 10/19/24 Emerita Nash DO [address] [place] [address] PCP - General Family Medicine 10/20/24 documented as of this encounter
--- OUTSIDE RECORDS SUMMARY | 2024-10-22 09:44 | XMS_ITS | Encounter Summary ---
Author Organization [employer] Address [address] 7t [place] [address] Care Team Providers Care Public Health Analyst Name Role Phone Carmen Arauz NP Primary Care Provider [phone] Emerita Nash DO Primary Care Provider + [phone] Reason for Visit * Reason Onset Date Comments Med Refill 12/15/2023 Encounter Details Date Type Department Care Team (Late st Contact Info) Description 12/15/2023 Refill [facility] MED[facility] [address] [place], [place] [phone] Payton Mcintyre MD [address] [place], [place] [phone] Social History Tobacco Use Types Packs/Day Years [...] documented as of this encounter Care Teams Public Health Analyst Relationship Specialty Start Date End Date Carmen Arauz NP [address] [place] [address] PCP - General Family Medicine 09/16/23 10/19/24 Emerita Nash DO [address] [place] [address] PCP - General Family Medicine 10/20/24 documented as of this encounter
--- OUTSIDE RECORDS SUMMARY | 2024-10-22 09:44 | XMS_ITS | Encounter Summary ---
Author Organization [employer] Address [address] [facility] 7t [place] [address] Care Team Providers Care Acid Cutter Name Role Phone Carmen Arauz NP Primary Care Provider [phone] Emerita Nash DO Primary Care Provider + [phone] Encounter Details Date Type Department Care Team ([facility] Contact Info) Description 09/03/2022 Telephone [facility] MED[facility]INE [address] [place] [address] Judith Parker MD [address] [place] [address] Social History Tobacco Use Types Packs/Day Years [...] on filedocumented in this encounter Care Teams Acid Cutter Relationship Specialty Start Date End Date Carmen Arauz NP [address] [place] [address] PCP - General Family Medicine 09/16/23 10/19/24 Emerita Nash DO [address] [place] [address] PCP - General Family Medicine 10/20/24 Alla Oliveira Sound Effects Person 07/11/23 09/16/23 documented as of this encounter
--- OUTSIDE RECORDS SUMMARY | 2024-10-22 09:44 | XMS_ITS | Encounter Summary ---
Author Organization [employer] Address [address] 7t [place] [address] Care Team Providers Care Cutter Operator Tile Name Role Phone Carmen Arauz YANNA Primary Care Provider [phone] Encounter Details Date Type Department Care Team (Latest Contact Info) Description 10/19/2024 Travel Social History Tobacco Use Types Packs/Day [...] documented as of this encounter Care Teams Cutter Operator Tile Relationship Specialty Start Date End Date Carmen Arauz NP [address] [place] [address] PCP - General Family Medicine 09/16/23 10/19/24 documented as of this encounter
--- OUTSIDE RECORDS SUMMARY | 2024-10-22 09:44 | XMS_ITS | Encounter Summary ---
Author Organization [employer] Address [address] [facility] 7 [place] [address] Care Team Providers Care Cilnical Scientist Name Role Phone Emerita Nash DO Primary Care Provider + [phone] Reason for Visit * Reason Onset Date Comments Chart Prep 10/20/2024 Encounter Details Date Type Department Care Team ([facility] st Contact Info) Description 10/20/2024 Telephone [facility] MED[facility]INE [address] [place], [place] [phone] Emerita Nash DO [address] [place], [place] [phone] Chart Prep Social History Tobacco Use Types Packs/Day Years [...] your housing situation today? I have jayla hokpins 07/07/[address] you li [...] Telephone Encounter - Dianna Bradley MA - 10/20/2024 8:42 AM EDT Chart Prep Labs: not applicable Images: not applicable Referrals: not applicable Vaccines due: Flu, PCV20, and Hep B Screenings: colonoscopy Overdue care gaps: No Updates documented in this encounter Plan of Treatment Not on file documented as of this encounter Visit Diagnoses Not on filedocumented in this encounter Additional Health Concerns Assessment Noted Time PHQ-9 Depression Total Score: 9 02/05/20 24 8:58 AM EDT documented as of this encounter Care Teams Cilnical Scientist Relationship Specialty Start Date End Date Emerita Nash DO [address] [place] [address] PCP - General Family Medicine 10/20/24 documented as of this encounter
--- OUTSIDE RECORDS SUMMARY | 2024-10-22 09:45 | XMS_ITS | Encounter Summary ---
Author Organization [employer] Address [address] [facility] [facility] [address] [facility] [address] 7t [place] [address] Care Team Providers Care Plug Grower Name Role Phone Carmen Arauz NP Primary Care Provider [phone] Emerita Nash DO Primary Care Provider + [phone] Reason for Visit * Reason Onset Date Comments Med Refill 04/15/2024 Encounter Details Date Type Department Care Team (Late st Contact Info) Description 04/15/2024 Refill [facility] [address] [place], [place] [phone] Name, MD Harvinder [address] [place], [place] [phone] Mild persistent asthma without complication Social History [...] documented as of this encounter Care Teams Plug Grower Relationship Specialty Start Date End Date Carmen Arauz NP [address] [place] [address] PCP - General Family Medicine 09/16/23 10/19/24 Emerita Nash DO [address] [place] [address] PCP - General Family Medicine 10/20/24 documented as of this encounter
--- OUTSIDE RECORDS SUMMARY | 2024-10-22 09:45 | XMS_ITS | Encounter Summary ---
Author Organization [employer] Address [address] [facility] 7t [place] [address] Care Team Providers Care Photo Colorer Name Role Phone Carmen Arauz NP Primary Care Provider [phone] Emerita Nash DO Primary Care Provider [phone] Reason for Visit * Reason Onset Date Comments Nurse Triage 06/27/2023 TelephoneCall 06/27/2023 Encounter Details Date Type Department Care Team (Late st Contact Info) Description 06/27/2023 Telephone [facility] MEDICINE 230 [place], [place] [phone] Judith Parker MD [address] [place], [place] [phone] Nurse Triage; TelephoneCall Social History Tobacco Use [...] pt is having. Please contact pt at [phone] * Telephone Encounter - Petrona Felix RN - 06/27/2023 4:33 PM EST Called pt. She states that she is looking for an appt. With PCP. Pt. Is seeing pain management and they want to start doing back injections. Pt. States I used to get back injections when I lived in [place] and the injections do not work . [...] documented as of this encounter Care Teams Photo Colorer Relationship Specialty Start Date End Date Carmen Arauz NP [address] [place] [address] PCP - General Family Medicine 09/16/23 10/19/24 Emerita Nash DO [address] [place] [address] PCP - General Family Medicine 10/20/24 Alla Oliveira Veneer Press Operator 07/11/23 09/16/23 documented as of this encounter
--- OUTSIDE RECORDS SUMMARY | 2024-10-22 09:45 | XMS_ITS | Encounter Summary ---
Author Organization [employer] Address [address] 7t [place] [address] Care Team Providers Care Insurance Office Manager Name Role Phone Carmen Arauz NP Primary Care Provider [phone] Emerita Nash DO Primary Care Provider + [phone] Reason for Visit * Reason Onset Date Comments Med Refill 09/10/2024 Encounter Details Date Type Department Care Team (Late st Contact Info) Description 09/10/2024 Refill [facility] [address] [place], [place] [phone] Carmen Arauz, YANNA [address] [place], [place] [phone] Social History Tobacco Use Types Packs/Day Years [...] documented as of this encounter Care Teams Insurance Office Manager Relationship Specialty Start Date End Date Carmen Arauz NP 230 [place] [address] PCP - General Family Medicine 09/16/23 10/19/24 Emerita Nash DO [address] [place] [address] PCP - General Family Medicine 10/20/24 documented as of this encounter
--- OUTSIDE RECORDS SUMMARY | 2024-10-22 09:45 | XMS_ITS | Encounter Summary ---
Author Organization [employer] Address [address] 7t [place] [address] Care Team Providers Care Mechanical Equipment Test Engineer Name Role Phone Carmen Arauz NP Primary Care Provider [phone] Emerita Nash DO Primary Care Provider [phone] Encounter Details Date Type Department Care Team ([facility] Contact Info) Description 05/25/2024 Telephone [facility] MED[facility]INE 230 [place], [place] [phone] Carmen Arauz NP [address] [place], [place] [phone] Social History Tobacco Use Types Packs/Day Years [...] as of this encounter Care Teams Mechanical Equipment Test Engineer Relationship Specialty Start Date End Date Carmen Arauz NP [address] [place] [address] PCP - General Family Medicine 09/16/23 10/19/24 Emerita Nash DO [address] [place] [address] PCP - General Family Medicine 10/20/24 documented as of this encounter
--- OUTSIDE RECORDS SUMMARY | 2024-10-22 09:45 | XMS_ITS | Encounter Summary ---
Author Organization [employer] Address [address] [facility] [facility] [address] 7t [place] [address] Care Team Providers Care School Lunch Manager Name Role Phone Carmen Arauz NP Primary Care Provider [phone] Emerita Nash DO Primary Care Provider [phone] Encounter Details Date Type Department Care Team ([facility] [address] Contact Info) Description 05/18/2024 Telephone [facility] 230 [place], [place] [phone] Carmen Arauz NP [address] [place], [place] [phone] Social History Tobacco Use Types Packs/Day Years [...] documented as of this encounter Care Teams School Lunch Manager Relationship Specialty Start Date End Date Carmen Arauz NP [address] [place] [address] PCP - General Family Medicine 09/16/23 10/19/24 Emerita Nash DO [address] [place] [address] PCP - General Family Medicine 10/20/24 documented as of this encounter
--- OUTSIDE RECORDS SUMMARY | 2024-10-22 09:45 | XMS_ITS | Clinical Summary ---
Author Organization [employer] Address [address] [facility] 7t [place] [address] Care Team Providers Care Cartridge Loading Operator Name Role Phone VenuEmerita brothers Primary Care Provider Allergies Active Allergy Reactions Criticality Noted Date [...] MOUTH EVERY DAY AT NOON 024 Active Symbicort 160-4.5 MCG/ACT inhaler Inhale 2 puffs 2 times daily. Active fexofenadine (Celia) 180 MG tablet Take 360 mg by mouth Once per day. Active desloratadine (Clarinex) 5 MG tablet TAKE 1 TABLET BY MOUTH EVERY DAY IN THE MORNING 90 tablet 1 024 Active montelukast (Singulair) 10 MG tablet TAKE 1 TABLET BY MOUTH EVERY MORNING 90 tablet 025 Active famotidine (Pepcid) 40 MG tablet TAKE 1 TABLET BY MOUTH EVERY DAY 90 tablet Active ondansetron ODT (Zofran-ODT) 4 MG disintegrating tablet TAKE 1 TABLET BY MOUTH EVERY [address] ON TOP OF THE TONGUE WHERE THEY WILL DISSOLVE THEN SWALLOW 15 tablet 025 Active acetaminophen (Tylenol 8 Hour) 650 MG ER tabletIndication s:Lumbar spondylosis,Lumb ar radiculopathy TAKE 2 TABLETS BY MOUTH EVERY 8 HOURS NEEDED 30 tablet 2 Active albuterol (Ventolin HFA) 108 (90 Base) MCG/ACT inhalerIndicatio ns:Mild persistent asthma without complication INHALE 2 PUFFS BY MOUTH EVERY 4 HOURS NEEDED 18 g Active betamethasone valerate (Valisone) 0.1 % cream APPLY TOPICALLY TWICE A DAY 30 g Active fluticasone (Flonase) 50 MCG/ACT nasal spray Administer 1 spray into each nostril 2 times daily. Shake gently. Before first use, prime pump. After use, clean tip and replace cap. 48 g Active pantoprazole (Protonix) 40 MG EC tablet TAKE 1 TABLET BY MOUTH TWICE A DAY. 180 tablet Active tretinoin (Retin-A) 0.025 % cream Apply topically at bedtime. 45 g 2 025 2025 Active naloxone (Narcan) 4 mg/0.1 mL nasal spray Administer 1 spray into affected nostril(s) 1 (one) time if needed. 024 2024 Discontinued( Therapy completed) Bisacodyl EC 5 MG EC tabletIndication s:Other constipation Take 5 mg by mouth with water. May repeat x 1 dose (5 mg) for daily total of 10 mg. Do not exceed 10 mg more than twice per week. Do not crush, chew, or split. 8 tablet 024 2024 Discontinued( Therapy completed) cyclobenzaprine (Flexeril) 10 MG tabletIndication s:Chronic low back pain, unspecified back pain laterality, unspecified whether sciatica present TAKE 1 TABLET BY MOUTH IN THE MORNING, AT NOON AND AT BEDTIME IF NEEDED FOR MUSCLES SPASMS FOR UP TO 10 DAYS 30 tablet 025 2024 Discontinued( Therapy completed) omeprazole (PriLOSEC) [address] capsule Take 1 capsule by mouth Once per day. 024 2024 Discontinued( Therapy completed) tretinoin (Retin-A) 0.01 % gelIndications:H yperpigmentation of skin Apply topically at bedtime. 45 g 2 025 2024 Discontinued Active Problems Problem Noted Date Diagnosed Date Allergies 10/19/2024 Acute low back pain 10/19/2024 Hyperpigmentation of skin 07/07/2024 Assessment & Plan [...] status of the Xolair. F/u with new information assurance specialist. ER precautions discussed. Pt sgrees with the plan. Assessment & Plan (09/16/2023 11:46 AM EDT): PRD 20 mg x 5d, counseled to discuss with information assurance specialist (appt next month) re adjusting Xolair dose vs changing to another med so that she doesn't end up using PRD that often. Patient is aware of side effects of alf use of steroids. DC Zyrtec and use desloratadine Continue Singulair FU with new PCP. Assessment & Plan (01/18/2023 2:16 PM EDT): Do not miss upcoming appointment with blood bank specialist PT1 for visit will be provided Assessment & Plan (08/30/2022 9:35 AM EDT): Continue loratadine, singular, prescription for prednisone. Left message for PA specilist for status of the Xolair. F/u with new information assurance specialist. ER precautions discussed. Pt sgrees with [...] Encounters Date Type Department Care Team Description 10/21/[address] [address] Emerita Nash DO PT1 Submitted 10/20/2024 1:15 PM EDT Office Visit [address] [address] Emerita Nash DO Routine history and physical examination of adult (Primary Dx); Encounter for immunization 10/20/2024 Travel 10/20/[address] [address] Emerita Nash DO Chart Prep 10/19/2024 2:30 PM EDT Office Visit [address] [address] Carmen Arauz NP Allergy, initial encounter (Primary Dx); Acute low back pain, unspecified back pain laterality, unspecified whether sciatica present; Hyperpigmentation of skin 10/19/2024 Travel 10/16/[address] [address] Sukhwinder Orr MA chartprep 10/12/2024 Patient Outreach [facility] MED & PEDS [address] [place] [address] Carmen Arauz NP Pre-visit Planning (SDOH was already completed) 09/30/2024 Orders Only GENERIC EXTERNAL DATA DEPARTMENT Provider, Generic External Data 09/15/2024 Telephone [facility] MED[facility] [address] [place] [phone] Carmen Arauz NP 09/15/2024 Refill [facility] [address] [place] [address] Carmen Arauz NP 09/15/2024 Refill [facility] MED & PEDS [address] [place] [address] Ashwini Hogue MD 09/14/2024 11:00 AM EDT Office Visit [facility] [address] [place] [address] Joyce Birmingham MD Lumbar radiculopathy, chronic (Primary Dx); Dietary counseling; Exercise counseling; Overweight 09/14/2024 Travel 09/14/[address] [address] Carmen Arauz NP Appointment Request 2024 Telephone [facility] [address] [place] [address] Emerita Nash DO Appointment Request 09/10/2024 Refill [facility] [address] [place] [address] Carmen Arauz NP 09/10/2024 Refill [facility] [address] [place] [address] Carmen Arauz NP Lumbar spondylosis; Lumbar radiculopathy; Mild persistent asthma without complication 09/10/2024 Refill [facility] [address] [place] [address] Carmen Arauz NP Hyperpigmentation of skin 09/10/2024 Refill [facility] [address] [place] [address] Ashwini Hogue MD 09/07/2024 Outside Procedure [facility] OPTOMETRY [address] [place] [phone] Irene Li, OD Presbyopia (Primary Dx) 09/04/2024 9:15 AM EDT Office Visit [facility] OPTOM[facility] [address] [place] [address] Guillermo, Irene, OD 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) 09/03/2024 Telephone [facility] MED[facility]INE [address] [place], [place] [phone] Carmen Arauz NP Mondays Chronic Pain Group 08/26/2024 Telephone [facility] [address] [place], [place] [phone] Carmen Arauz NP Saturday Chronic Pain Group 08/21/2024 Population Health Risk Score [facility] (C[facility]) Department [address] [place] [phone] Provider, Population Health Generic 08/07/2024 Patient Outreach [facility] MED [facility] PEDS [address] [place], [place] [phone] Carmen Arauz NP Pre-visit Planning (SDOH unable to reach LVM) 08/06/2024 Refill [facility] PED[facility] [address] [place], [place] [phone] Carmen Arauz NP 08/05/2024 Telephone [facility] MED[facility] [address] [place], [place] [phone] Carmen Arauz NP Scheduling for pain group from Last 3 Months Immunizations Immunization Administration Dates Next Due Moderna Covid-19 Vaccine 12+ 05/12/2022 Pfizer Covid-19 Vaccine 12+ 09/26/2023(D eferred: Patient Refused - Patient declined 09/26/23) Pfizer Covid-19 Vaccine 12+ Bivalent 05/12/2022 Pfizer Covid-19 Vaccine 12+ ella-sucrose (Humphries Cap) 11/26/2020,11/05/2020 Pneumococcal Conjugate PCV 20 10/20/2024 Tdap 03/27/2022 Family History Medical History Relation Name Comments Anxiety disorder Father Depression Father Hypertension Maternal Grandmother Arthritis Mother Hypertension Mother Relation Name Status Comments Father Maternal Grandmother Mother Social History Tobacco Use Types Packs/Day [...] Mass Index 30.14 10/20/2024 1:35 PM EDT Plan of Treatment Health Maintenance Due Date Last Done Comments CT Colonography 1975 Colonoscopy 1975 Colorectal Cancer Screening 1975 FIT DNA/Cologuard 1975 FIT 1975 FOBT 1975 Sigmoidoscopy 1975 Family Planning (PISQ) 09/12/1991 Hepatitis B Vaccines (1 of 3 - 19+ 3-dose series) 09/12/1995 Influenza Vaccine (#1) 2024 Alcohol/Substance Use Screening 12/10/2024 12/11/2023 Depression Screening 02/04/2025 02/05/2024, 02/05/20 SDOH Screening 07/07/2025 07/07/2024 Mammogram 10/07/2025 10/08/2023 Tobacco Screening 10/20/2025 10/20/2024 Zoster Vaccines (1 of 2) 2026 Pap [...] 04/02/2022 Hepatitis C Screening Completed 01/31/2023, 022 Pneumococcal Vaccine: Pediatrics (0 to 5 Years) and At-Risk Patients (6 to 49) Years) Completed 10/20/2024 HIB Vaccines Aged Out No longer eligi [...] PM EDT) HPV High Risk Negative Negative [facility] HPV Genotype 16 Negative Negative [facility] HPV Genotype 18 Negative Negative [facility] Comment:HPV testing performe d at [facility] (CLIA#[id number]), [address] [place] [phone].Testing for HPV was performed using the Cristian [...] ORDERAB LES Final Result Performing Organization Address City/State/[facility] Co de Phone Number [facility] [address] [place] [phone] * Pap Smear (09/30/2024 3:41 PM EDT) 09/30/2024 3:41 PM EDT 10/01/2024 11:22 AM EDT Narrative [facility] - 10/06/2024 10:50 AM EDT ----- ------- Name: Franchesca Chauhan ? Age/Sex: 49/F ? : 1975 Unit#: [id number] ?? Attend Dr: Lynne Connor Lacey ?Re09/30/24 ?Status: DEP REF ? Location: HO.LNP ?Disch: ? ----- ------- SPEC : [id number] ? RECD: 10/01/24-1121 ? STATUS: ??SOUT ? REQ NUM: [id number] ? KAELA: 09/30/24-154 ? SUBM DR: Lynne Connor CNM ? ENTERED: ??10/01/24 ?SP TYPE: Pap Smr ?OTHR DR: Carmen Arauz ASSIGNMENT OFFICER ? ORDERED: ??Pap Smear ? Interpretation ?? Satisfactory for evaluation. ?? Negative for intraepithelial lesion or malignancy. ? HPV High Risk: ??Negative ? HPV Genotyping 16: ??Negative ?? HPV Genotyping 18: ??Negative ?Clinical Information LMP: no menses Previous PAP test:Unknown date/findings ? Material Received ?? ThinPrep-Cervical Copies To: ?? Carmen Arauz ASSIGNMENT OFFICER ?? [facility] ?? [address] [facility] ?? [place] [address] ?? [phone] ?? Lynne Connor CNM ?? [facility] ?? [address] [facility], 3rd Floor ?? [place] [address] ?? [phone] ----- ------- Signed (signature on file) [facility]ENNIFER Shaw [facility] 10/06/24 1050 ? ----- ------- ? END OF REPORT ? us Generic External Data Provider LAB CYTOLOGY CATRACHITO PRIEST Final Result [facility] [address] [place] [phone] * BI Mammogram Screening Tomosynthesis Bilateral (10/08/2023 10:40 AM EDT) Anatomical Region Laterality Modality Breast Bilateral Mammography 10/08/2023 10:4 0 AM EDT Narrative 11/04/2023 11:24 AM EDT ? [facility] [place] ? [address] [facility] ?[place] [address] ? Mammography Report ? Signed ? Patient: Tien,Franchesca ?MR#: [id number] ?? 88 ? : 1975 ?Acct:[id number] ? Age/Sex: 48 / F ?ADM Date: 04/30/24 ? Loc: HO.MAMMO ? Attending Dr: Carmen Arauz ASSIGNMENT OFFICER ? Ordering Physician: Carmen Arauz ASSIGNMENT OFFICER ?Results: 1Negati ?? ve ? Date of Service: 10/08/23 ?Follow Up: 1 Year From Orig ?? inal Mammogram ? Procedure(s): MM tomosynthesis screening BI ?? Accession Number(s): [id number] ? cc: Carmen Arauz ASSIGNMENT OFFICER ? EXAMINATION: ?? MM SCREENING DIGITAL BREAST [...] by Kusum Chester MD in OV> ? // 1120 ? DD/DT: 10/07/ 1040 ? TD/TT: ? Recyclable Materials Collector: ? Procedure Note Donotuseinterpreter, Image - 11/04/2023 [facility] [address] [place], [place] [address] Mammography Report Signed Patient: Franchesca ChauhanMR#: [id number] 87 : 1975Acct:[id number] Age/Sex: 48 / FADM Date: 10/08/23 Loc: [facility] Attending Dr: Carmen Arauz ASSIGNMENT OFFICER Ordering Physician: Carmen Arauz NPResults: 1Negati ve Date of Service: 10/08/23Follow Up: 1 Year From Orig inal Mammogram Procedure(s): MM tomosynthesis screening BI Accession Number(s): [id number] cc: Carmen Arauz ASSIGNMENT OFFICER EXAMINATION: MM SCREENING DIGITAL BREAST TOMOSYNTHESIS, BILATERAL [...] in OV> 11/04/23 1120 DD/ 1040 TD/TT: Recyclable Materials Collector: Carmen Arauz ASSIGNMENT OFFICER IMG BI PROCEDURES Final Result * Hepatitis C Antibody Reflex (01/31/2023 8:50 AM EDT) Hepatitis C Antibody Nonreactive Nonreactive [facility] Comment:Antibodies to HCV no t detected; does not exclude early acuteHCV infection. 01/31/2023 8:50 AM EDT 01/31/2023 11:11 AM EDT us Judith Sibley MD LAB BLOOD ORDERABLES Final Result Performing Organization Address [facility] de Phone Number [facility] [address] [place] [phone] * HIV Ab/Ag ([facility]) (01/31/2023 8:50 AM EDT) HIV AB/AG Nonreactive Nonreactive [facility] Comment:HIV-1 p24 Ag and/or HIV-1/HIV-2 Ab not detected.A test result that is nonreactive does not exclude thepossibility of exposure to or infection with HIV-1 and/orHIV-2. Nonreactive results in this assay for individualswith prior exposure to HIV-1 and/or HIV-2 may be due toantigen and antibody levels that are below the limit ofdetection of this assay.The [employer] Senior Analyst HIV Ag/Ab Combo assay result andsupplemental assay results should be interpreted inconjunction with the patient's clinical presentation,history and other laboratory results. If the results areinconsistent with clinical evidence, additional testing issuggested to confirm the result. 01/31/2023 8:50 AM EDT 01/31/2023 11:11 AM EDT us Judith Sibley MD LAB BLOOD ORDERABLES Final Result Performing Organization Address [facility] Co de Phone Number [facility] [address] [place] [phone] * Lipid Panel, Standard (01/31/2023 8:50 AM EDT) Triglycerides 79 <150 mg/dL [facility] Comment:Desirable Triglyceri de: less than 150 mg/dLBorderline High Triglyceride 150-199 mg/dLHigh Triglyceride: 200-499 mg/dLVery High Triglyceride: greater than or equal to 5OO mg/dL Cholesterol 150 <200 mg/dL [facility] Comment:Desirable Cholestero l: less than 200 mg/dLBorderline High Cholesterol: 200-239 mg/dLHigh Cholesterol: greater than 239 mg/dL LDL Cholesterol Calculated 86 <100 mg/dL [facility] Comment:Desirable LDL: less than 100 mg/dLNear Optimal/Above Optimal LDL: 110- 129 mg/dLBorderline High LDL: 130-159 mg/dLHigh LDL: 160-189 mg/dLVery High LDL: greater than or equal to 190 mg/dL HDL Cholesterol 49 >40 mg/dL [facility] Comment:Desirable HDL: great er than 40 mg/dL Note: This HDL assay may give artificially low results in patients with liver disease. Blood Venous blood specimen / Unknown 01/31/2023 8:50 AM EDT 01/31/2023 11:11 AM EDT us Judith Sibley MD LAB BLOOD ORDERABLES Final Result [facility] [address] [place] [phone] from Last 3 Months or Most Recently Relevant to Health Maintenance Insurance [facility] C3 Care Teams Cartridge Loading Operator Relationship Specialty Start Date End Date Emerita Nash DO [address] [place] [phone] PCP - General Family Medicine 10/20/24
--- OUTSIDE RECORDS SUMMARY | 2024-10-22 09:45 | XMS_ITS | Encounter Summary ---
Author Organization [employer] Address [address] [facility] 7t [place] [address] Care Team Providers Care Mechanical Product Engineer Name Role Phone Carmen Arauz NP Primary Care Provider [phone] Emerita Nash DO Primary Care Provider + [phone] Reason for Visit * Reason Onset Date Comments Med Refill 09/10/2024 Encounter Details Date Type Department Care Team ([facility] st Contact Info) Description 09/10/2024 Refill [facility] & PED[facility] [address] [place] [address] Ashwini Hogue MD [address] [place] [address] Social History Tobacco Use Types Packs/Day Years [...] as of this encounter Care Teams Mechanical Product Engineer Relationship Specialty Start Date End Date Carmen Arauz NP [address] [place] [address] PCP - General Family Medicine 09/16/23 10/19/24 Emerita Nash DO [address] [place] [address] PCP - General Family Medicine 10/20/24 documented as of this encounter
--- OUTSIDE RECORDS SUMMARY | 2024-10-22 09:45 | XMS_ITS | Encounter Summary ---
Author Organization [employer] Address [address] [facility] [address] [place] [address] Care Team Providers Care Preassembler Printed Circuit Board Name Role Phone Carmen Arauz NP Primary Care Provider [phone] Emerita Nash DO Primary Care Provider [phone] Reason for Visit * Reason Onset Date Comments Med Refill 04/15/2024 Encounter Details Date Type Department Care Team (Late st Contact Info) Description 04/15/2024 Refill [facility] MED[facility] [address] [place] [address] Judith Parker MD [address] [place], [place] [phone] Social History Tobacco Use Types Packs/Day Years [...] documented as of this encounter Care Teams Preassembler Printed Circuit Board Relationship Specialty Start Date End Date Carmen Arauz NP [address] [place] [address] PCP - General Family Medicine 09/16/23 10/19/24 Emerita Nash DO [address] [place] [address] PCP - General Family Medicine 10/20/24 documented as of this encounter
--- OUTSIDE RECORDS SUMMARY | 2024-10-22 09:45 | XMS_ITS | Encounter Summary ---
Author Organization [employer] Address [address] [facility] [place] [address] Care Team Providers Care Wind Technician Name Role Phone Carmen Arauz NP Primary Care Provider [phone] Emerita Nash DO Primary Care Provider [phone] Reason for Visit * Reason Onset Date Comments Med Refill 04/15/2024 Encounter Details Date Type Department Care Team (Late st Contact Info) Description 04/15/2024 Refill [facility] [address] [place], [place] [phone] Carmen Arauz NP [address] [place], [place] [phone] Lumbar spondylosis; Lumbar radiculopathy Social History Tobacco [...] documented as of this encounter Care Teams Wind Technician Relationship Specialty Start Date End Date Carmen Arauz NP [address] [place] [address] PCP - General Family Medicine 09/16/23 10/19/24 Emerita Nash DO [address] [place] [address] PCP - General Family Medicine 10/20/24 documented as of this encounter
--- OUTSIDE RECORDS SUMMARY | 2024-10-22 09:45 | XMS_ITS | Encounter Summary ---
Author Organization [employer] Address [address] [facility] [address] [place] [address] Care Team Providers Care Graduate Rn Name Role Phone Carmen Arauz NP Primary Care Provider [phone] Emerita Nash DO Primary Care Provider + [phone] Reason for Visit * Reason Onset Date Comments Med Refill 09/10/2024 Encounter Details Date Type Department Care Team (Late st Contact Info) Description 09/10/2024 Refill [facility] [address] [place], [place] [phone] Carmen Arauz NP [address] [place], [place] [phone] Hyperpigmentation of skin Social History Tobacco Use [...] your housing situation today? I have jayla kellie 07/07/[address] you li [...] documented as of this encounter Care Teams Graduate Rn Relationship Specialty Start Date End Date Carmen Arauz NP [address] [place] [address] PCP - General Family Medicine 09/16/23 10/19/24 Emerita Nash DO [address] [place] [address] PCP - General Family Medicine 10/20/24 documented as of this encounter
--- OUTSIDE RECORDS SUMMARY | 2024-10-22 09:45 | XMS_ITS | Encounter Summary ---
Author Organization [employer] Address [address] [facility] [address] [place] [address] Care Team Providers Care Process Environmental Technician Name Role Phone Carmen Arauz NP Primary Care Provider [phone] Emerita Nsah DO Primary Care Provider [phone] Reason for Visit * Reason Onset Date Comments Appointment Request 2024 Encounter Details Date Type Department Care Team ([facility] st Contact Info) Description 2024 Telephone [facility] MED[facility] [address] [place], [place] [phone] Emerita Nash DO [address] [place], [place] [phone] Appointment Request Social History Tobacco Use Types [...] requesting a to r/s appt from 08/14/24. Technical Report Writer advised pt that there is no appt available and told pt that she would be put on a recall for whenever there is a opening. Contact pt at [phone] documented in this encounter Plan of Treatment Not on file documented as of this encounter Visit Diagnoses Not on filedocumented in this encounter Additional Health Concerns Assessment Noted Time PHQ-9 Depression Total Score: 9 02/05/20 24 8:58 AM EDT documented as of this encounter Care Teams Process Environmental Technician Relationship Specialty Start Date End Date Carmen Arauz NP [address] [place] [address] PCP - General Family Medicine 09/16/23 10/19/24 Emerita Nash DO [address] [place] [address] PCP - General Family Medicine 10/20/24 documented as of this encounter
--- OUTSIDE RECORDS SUMMARY | 2024-10-22 09:45 | XMS_ITS | Encounter Summary ---
Author Organization [employer] Address [address] [facility] [address] 7t [place] [address] Care Team Providers Care Mushroom Press Operator Name Role Phone Carmen Arauz NP Primary Care Provider [phone] Emerita Nash DO Primary Care Provider + [phone] Reason for Visit * Reason Onset Date Comments returning phone call 08/13/2022 Encounter Details Date Type Department Care Team (Late st Contact Info) Description 08/13/2022 Telephone [facility] MED[facility] [address] [place] [address] Judith Parker MD [address] [place], [place] [phone] returning phone call Social History Tobacco Use [...] Task was 08/13/2022 Please contact pt at [phone] documented in this encounter Plan of Treatment Not on file documented as of this encounter Visit Diagnoses Not on filedocumented in this encounter Care Teams Mushroom Press Operator Relationship Specialty Start Date End Date Carmen Arauz NP [address] [place] [address] PCP - General Family Medicine 09/16/23 10/19/24 Emerita Nash DO [address] [place] [address] PCP - General Family Medicine 10/20/24 Alla Oliveira Welder Repair 07/11/23 09/16/23 documented as of this encounter
--- OUTSIDE RECORDS SUMMARY | 2024-10-22 09:45 | XMS_ITS | Encounter Summary ---
Author Organization [employer] Address [address] [facility] 7t [place] [address] Care Team Providers Care Adolescent Medicine Specialist Name Role Phone Carmen Arauz NP Primary Care Provider [phone] Emerita Nash DO Primary Care Provider [phone] Reason for Visit * Reason Onset Date Comments Nurse Triage 05/15/2024 Encounter Details Date Type Department Care Team ([facility] st Contact Info) Description 05/15/2024 Telephone [facility] MEDICINE 230 [place], [place] [phone] Carmen Arauz NP 230 [place], [place] [phone] Nurse Triage Social History Tobacco Use Types [...] Miscellaneous Notes * Telephone Encounter - Ankita BhatiaPEPE - 05/15/2024 9:01 AM EST Triage call [...] to follow with patient. Patient reaced at [phone]. Protocol Used: Tinnitus (Adult) Protocol-Based Disposition: See [...] caller accepted this outcome. Contact pt at [phone] documented in this encounter Plan of Treatment Not on file documented as of this encounter Visit Diagnoses Not on filedocumented in this encounter Additional Health Concerns Assessment Noted Time PHQ-9 Depression Total Score: 9 02/05/20 8:58 AM EDT documented as of this encounter Care Teams Adolescent Medicine Specialist Relationship Specialty Start Date End Date Carmen Arauz NP 230 [place] [address] PCP - General Family Medicine 09/16/23 10/19/24 Emerita Nash DO 230 [place] [address] PCP - General Family Medicine 10/20/24 documented as of this encounter
--- OUTSIDE RECORDS SUMMARY | 2024-10-22 09:45 | XMS_ITS | Encounter Summary ---
Author Organization [employer] Address 75 [facility] 7t [place] [address] Care Team Providers Care Senior Web Analyst Name Role Phone Carmen Arauz NP Primary Care Provider [phone] Emerita Nash DO Primary Care Provider + [phone] Reason for Visit * Reason Onset Date Comments triage 08/16/2022 Encounter Details Date Type Department Care Team ([facility] st Contact Info) Description 08/16/2022 Telephone [facility] MEDICINE 230 [place], [place] [phone] Judith Parker MD 230 [place], [place] [phone] triage Social History Tobacco Use Types Packs/Day [...] filedocumented in this encounter Care Teams Senior Web Analyst Relationship Specialty Start Date End Date Carmen Arauz NP 230 [place] [address] PCP - General Family Medicine 09/16/23 10/19/24 Emerita Nash DO 230 [place] [address] PCP - General Family Medicine 10/20/24 Alla Oliveira Water Filter Cleaner 07/11/23 09/16/23 documented as of this encounter
--- OUTSIDE RECORDS SUMMARY | 2024-10-22 09:45 | XMS_ITS | Encounter Summary ---
Author Organization [employer] Address [address] [facility] [address] 7t [place] [address] Care Team Providers Care Lead Caregiver Name Role Phone Carmen Arauz NP Primary Care Provider [phone] Emerita Nash DO Primary Care Provider + [phone] Reason for Visit * Reason Comments Med Refill Encounter Details Date Type Department Care Team ([facility] st Contact Info) Description 05/18/2024 Refill [facility] MEDICINE 230 [place], [place] [phone] Judith Parker MD 230 [place], [place] [phone] Mild persistent asthma without complication Social History [...] as of this encounter Care Teams Lead Caregiver Relationship Specialty Start Date End Date Carmen Arauz NP 230 [place] [address] PCP - General Family Medicine 09/16/23 10/19/24 Emerita Nash DO 230 [place] [address] PCP - General Family Medicine 10/20/24 documented as of this encounter
--- OUTSIDE RECORDS SUMMARY | 2024-10-22 09:45 | XMS_ITS | Encounter Summary ---
Author Organization [employer] Address [address] [facility] 7t [place] [address] Care Team Providers Care Parts Cleaner Name Role Phone Carmen Arauz NP Primary Care Provider [phone] Emerita Nash DO Primary Care Provider [phone] Reason for Visit * Reason Onset Date Comments Nurse Triage 05/26/2024 Encounter Details Date Type Department Care Team ([facility] st Contact Info) Description 05/26/2024 Telephone [facility] 230 [place], [place] [phone] Carmen Arauz NP 230 [place], [place] [phone] Nurse Triage Social History Tobacco Use Types [...] call Pt was last seen in [facility] 05/25/24. Pt has been doing everything [...] call regarding prior message. Contact pt at [phone] * Telephone Encounter - Adalid Joe - [...] documented as of this encounter Care Teams Parts Cleaner Relationship Specialty Start Date End Date Carmen Arauz NP 230 [place] [address] PCP - General Family Medicine 09/16/23 10/19/24 Emerita Nash DO 230 [place] [address] PCP - General Family Medicine 10/20/24 documented as of this encounter
--- OUTSIDE RECORDS SUMMARY | 2024-10-22 09:45 | XMS_ITS | Encounter Summary ---
Author Organization [employer] Address [address] [facility] [address] 7[address] [place] [address] Care Team Providers Care Folding Machine Setter Name Role Phone Carmen Arauz NP Primary Care Provider Emerita Nash DO Primary Care Provider + [phone] Reason for Visit * Reason Onset Date Comments Med Refill 05/17/2023 Encounter Details Date Type Department Care Team (Late st Contact Info) Description 05/17/2023 Refill [facility] MEDICINE 230 [place], [place] [phone] Emerita Nash DO 230 [place], [place] [phone] Social History Tobacco Use Types Packs/Day Years [...] documented as of this encounter Care Teams Folding Machine Setter Relationship Specialty Start Date End Date Carmen Arauz NP 230 [place] [address] PCP - General Family Medicine 09/16/23 10/19/24 Emerita Nash DO 230 [place] [address] PCP - General Family Medicine 10/20/24 Alla Oliveira Seed Expert 07/11/23 09/16/23 documented as of this encounter
--- OUTSIDE RECORDS SUMMARY | 2024-10-22 09:45 | XMS_ITS | Encounter Summary ---
Author Organization [employer] Address 75 [facility] 7t [place] [address] Care Team Providers Care Chiropractic Teacher Name Role Phone Carmen Arauz NP Primary Care Provider [phone] Emerita Nash DO Primary Care Provider + [phone] Encounter Details Date Type Department Care Team ([facility] Contact Info) Description 08/10/2022 Abstract [facility] MEDICINE 230 [place] [address] Judith Parker MD 230 [place] [address] Social History Tobacco Use Types Packs/Day Years [...] on filedocumented in this encounter Care Teams Chiropractic Teacher Relationship Specialty Start Date End Date Carmen Arauz NP 230 [place] [address] PCP - General Family Medicine 09/16/23 10/19/24 Emerita Nash DO 230 [place] [address] PCP - General Family Medicine 10/20/24 Alla Oliveira Family Services Worker 07/11/23 09/16/23 documented as of this encounter
== END 2024-10-22 09:42 | disposition home or self-care (01) ==
LOC: HO.PMC 09:12
PROVIDERS: PCP Nurse Practitioner Family; Visit Provider Nurse Practitioner Family
DX: M54.16 Radiculopathy, lumbar region (principal); M47.816 Spondylosis without myelopathy or radiculopathy, lumbar region; M51.369 Other intervertebral disc degeneration, lumbar region without mention of lumbar back pain or lower extremity pain; Q76.49 Other congenital malformations of spine, not associated with scoliosis
CPT/HCPCS: 99213

== ENCOUNTER → 2024-10-22 09:11 | Outpatient (BNVA) | payer MEDICAID, SELFPAY | PROVIDERS: PCP Nurse Practitioner Family; Visit Provider Nurse Practitioner Family | DX: M47.26 Other spondylosis with radiculopathy, lumbar region (principal); M51.369 Other intervertebral disc degeneration, lumbar region without mention of lumbar back pain or lower extremity pain; Q76.49 Other congenital malformations of spine, not associated with scoliosis | CPT/HCPCS: 99212 ==

== ENCOUNTER 2024-10-27 08:42 | Outpatient (REF) | payer MEDICAID, SELFPAY ==
--- OUTSIDE RECORDS SUMMARY | 2024-10-27 09:00 | XMS_ITS | Encounter Summary ---
Author Organization [employer] Address [address] [facility] 7 [place] [address] Care Team Providers Care Fertilizer Supervisor Name Role Phone Carmen Arauz NP Primary Care Provider [phone] Emerita Nash DO Primary Care Provider + [phone] Reason for Visit * Reason Onset Date Comments Med Refill 09/10/2024 Encounter Details Date Type Department Care Team ([facility] st Contact Info) Description 09/10/2024 Refill [facility] [address] [place] [address] Ashwini Hogue MD [address] [place] [address] Social History Tobacco Use Types Packs/Day Years [...] documented as of this encounter Care Teams Fertilizer Supervisor Relationship Specialty Start Date End Date Carmen Arauz NP 230 [place] [address] PCP - General Family Medicine 09/16/23 10/19/24 Emerita Nash DO 230 [place] [address] PCP - General Family Medicine 10/20/24 documented as of this encounter
--- OUTSIDE RECORDS SUMMARY | 2024-10-27 09:00 | XMS_ITS | Encounter Summary ---
Author Organization [employer] Address 75 [facility] 7t [place] [address] Care Team Providers Care Automobile Inspector Name Role Phone Carmen Arauz NP Primary Care Provider [phone] Emerita Nash DO Primary Care Provider + [phone] Reason for Visit * Reason Onset Date Comments Med Refill 06/22/2024 Encounter Details Date Type Department Care Team (Late st Contact Info) Description 06/22/[address] [facility] MEDICINE 230 [place], [place] [phone] Carmen Arauz NP 230 [place], [place] [phone] Mild persistent asthma without complication Social History [...] TC from pt asking about referral for SALES SUPPORT SPECIALIST. Nurse informed pt that a message [...] documented as of this encounter Care Teams Automobile Inspector Relationship Specialty Start Date End Date Carmen Arauz NP 230 [place] [address] PCP - General Family Medicine 09/16/23 10/19/24 Emerita Nash DO 230 [place] [address] PCP - General Family Medicine 10/20/24 documented as of this encounter
--- OUTSIDE RECORDS SUMMARY | 2024-10-27 09:00 | XMS_ITS | Encounter Summary ---
Author Organization [employer] Address [address] [facility] [address] 7t [place] [address] Care Team Providers Care Manager Of Revenue Name Role Phone Carmen Arauz NP Primary Care Provider [phone] Emerita Nash DO Primary Care Provider + [phone] Reason for Visit * Reason Onset Date Comments Med Refill 11/25/2023 Encounter Details Date Type Department Care Team (Late st Contact Info) Description 11/25/2023 Refill [facility] MEDICINE 230 [place], [place] [phone] Judith Parker MD 230 [place], [place] [phone] Mild persistent asthma without complication Social History [...] of this encounter Care Teams Manager Of Revenue Relationship Specialty Start Date End Date Carmen Arauz NP 230 [place] [address] PCP - General Family Medicine 09/16/23 10/19/24 Emerita Nash DO 230 [place] [address] PCP - General Family Medicine 10/20/24 documented as of this encounter
--- OUTSIDE RECORDS SUMMARY | 2024-10-27 09:00 | XMS_ITS | Encounter Summary ---
Author Organization [employer] Address [address] [place] [address] 7 [place] [address] Care Team Providers Care Ward Maid Name Role Phone Carmen Arauz NP Primary Care Provider [phone] Emerita Nash DO Primary Care Provider + [phone] Encounter Details Date Type Department Care Team ([facility] Contact Info) Description 08/10/2022 Abstract [facility] MEDICINE 230 [place] [address] Judith Parker MD [address] [place] [address] Social History Tobacco Use Types Packs/Day Years [...] on filedocumented in this encounter Care Teams Ward Maid Relationship Specialty Start Date End Date Carmen Arauz NP 230 [place] [address] PCP - General Family Medicine 09/16/23 10/19/24 Emerita Nash DO [address] [place] [address] PCP - General Family Medicine 10/20/24 Alla Oliveira Registered Nurse Surgical Services 07/11/23 09/16/23 documented as of this encounter
--- OUTSIDE RECORDS SUMMARY | 2024-10-27 09:00 | XMS_ITS | Encounter Summary ---
Author Organization [employer] Address [address] [facility] [address] 7t [place] [address] Care Team Providers Care Travel Registered Nurse Nicu Name Role Phone Carmen Arauz NP Primary Care Provider [phone] Emerita Nash DO Primary Care Provider + [phone] Reason for Visit * Reason Onset Date Comments Med Refill 09/10/2024 Encounter Details Date Type Department Care Team (Late st Contact Info) Description 09/10/2024 Refill [facility] MED & PEDS [address] [place] [address] Carmen Arauz NP [address] [place] [address] Social History Tobacco Use Types Packs/Day Years [...] documented as of this encounter Care Teams Travel Registered Nurse Nicu Relationship Specialty Start Date End Date Carmen Arauz NP 230 [place] [address] PCP - General Family Medicine 09/16/23 10/19/24 Emerita Nash DO 230 [place] [address] PCP - General Family Medicine 10/20/24 documented as of this encounter
--- OUTSIDE RECORDS SUMMARY | 2024-10-27 09:00 | XMS_ITS | Encounter Summary ---
Author Organization [employer] Address [address] [facility] [address] 7t [place] [address] Care Team Providers Care Mortgage Loan Officer Name Role Phone Carmen Arauz NP Primary Care Provider [phone] Emerita Nash DO Primary Care Provider + [phone] Reason for Visit * Reason Onset Date Comments Med Refill 04/15/2024 Encounter Details Date Type Department Care Team (Late st Contact Info) Description 04/15/2024 Refill [facility] MEDICINE 230 [place], [place] [phone] Name, MD Harvinder 230 [place], [place] [phone] Mild persistent asthma without complication Social History [...] documented as of this encounter Care Teams Mortgage Loan Officer Relationship Specialty Start Date End Date Carmen Arauz NP 230 [place] [address] PCP - General Family Medicine 09/16/23 10/19/24 Emerita Nash DO 230 [place] [address] PCP - General Family Medicine 10/20/24 documented as of this encounter
--- OUTSIDE RECORDS SUMMARY | 2024-10-27 09:00 | XMS_ITS | Encounter Summary ---
Author Organization [employer] Address 75 [facility] 7t [place] [address] Care Team Providers Care Flight Control Specialist Name Role Phone Carmen Arauz NP Primary Care Provider [phone] Emerita Nash DO Primary Care Provider + [phone] Reason for Visit * Reason Comments Med Refill Encounter Details Date Type Department Care Team ([facility] st Contact Info) Description 05/18/2024 Refill [facility] MEDICINE 230 [place], [place] [phone] Judith Parker MD 230 [place], [place] [phone] Mild persistent asthma without complication Social History [...] as of this encounter Care Teams Flight Control Specialist Relationship Specialty Start Date End Date Carmen Arauz NP 230 [place] [address] PCP - General Family Medicine 09/16/23 10/19/24 Emerita Nash DO 230 [place] [address] PCP - General Family Medicine 10/20/24 documented as of this encounter
--- OUTSIDE RECORDS SUMMARY | 2024-10-27 09:00 | XMS_ITS | Clinical Summary ---
Author Organization [facility] Address [address] [place] [phone] Phone Care Team Providers Care Retail Coverage Merchandiser Name Role Phone Physician, Pcp Unknown Primary [...] topic Insurance MEDICAID - [place] Care Teams Retail Coverage Merchandiser Relationship Specialty Start Date End Date Physician, Pcp Unknown PCP - General 06/01/24
--- OUTSIDE RECORDS SUMMARY | 2024-10-27 09:00 | XMS_ITS | Encounter Summary ---
Author Organization [employer] Address [address] [facility] [address] 7t [place] [address] Care Team Providers Care Mercury Washer Name Role Phone Carmen Arauz NP Primary Care Provider [phone] Emerita Nash DO Primary Care Provider + [phone] Encounter Details Date Type Department Care Team ([facility] Contact Info) Description 05/25/2024 Telephone [facility] MEDICINE 230 [place], [place] [phone] Carmen Arauz NP 230 [place], [place] [phone] Social History Tobacco Use Types Packs/Day Years [...] documented as of this encounter Care Teams Mercury Washer Relationship Specialty Start Date End Date Carmen Arauz NP 230 [place] [address] PCP - General Family Medicine 09/16/23 10/19/24 Emerita Nash DO 230 [place] [address] PCP - General Family Medicine 10/20/24 documented as of this encounter
--- OUTSIDE RECORDS SUMMARY | 2024-10-27 09:00 | XMS_ITS | Encounter Summary ---
Author Organization [employer] Address [address] [facility] [address] 7t [place] [address] Care Team Providers Care Counterintelligence Agent Name Role Phone Carmen Arauz NP Primary Care Provider [phone] Emerita Nash DO Primary Care Provider + [phone] Reason for Visit * Reason Onset Date Comments Med Refill 05/17/2023 Encounter Details Date Type Department Care Team (Late st Contact Info) Description 05/17/2023 Refill [facility] MEDICINE 230 [place], [place] [phone] Emerita Nash DO 230 [place], [place] [phone] Social History Tobacco Use Types Packs/Day Years [...] documented as of this encounter Care Teams Counterintelligence Agent Relationship Specialty Start Date End Date Carmen Arauz NP 230 [place] [address] PCP - General Family Medicine 09/16/23 10/19/24 Emerita Nash DO 230 [place] [address] PCP - General Family Medicine 10/20/24 Alla Oliveira Security Tester 07/11/23 09/16/23 documented as of this encounter
--- OUTSIDE RECORDS SUMMARY | 2024-10-27 09:00 | XMS_ITS | Encounter Summary ---
Author Organization [employer] Address [address] [facility] [address] 7t [place] [address] Care Team Providers Care Clinical Engineering Manager Name Role Phone Carmen Arauz NP Primary Care Provider [phone] Emerita Nash DO Primary Care Provider + [phone] Reason for Visit * Reason Onset Date Comments Nurse Triage 06/27/2023 TelephoneCall 06/27/2023 Encounter Details Date Type Department Care Team (Late st Contact Info) Description 06/27/2023 Telephone [facility] MEDICINE 230 [place], [place] [phone] Judith Parker MD 230 [place], [place] [phone] Nurse Triage; TelephoneCall Social History Tobacco Use [...] pt is having. Please contact pt at [phone] * Telephone Encounter - Petrona Felix RN - 06/27/2023 4:33 PM EST Called pt. She states that she is looking for an appt. With PCP. Pt. Is seeing pain management and they want to start doing back injections. Pt. States I used to get back injections when I lived in [place] and the injections do not work . [...] documented as of this encounter Care Teams Clinical Engineering Manager Relationship Specialty Start Date End Date Carmen Arauz NP 230 [place] [address] PCP - General Family Medicine 09/16/23 10/19/24 Emerita Nash DO 230 [place] [address] PCP - General Family Medicine 10/20/24 Alla Oliveira Audio Production Manager 07/11/23 09/16/23 documented as of this encounter
--- OUTSIDE RECORDS SUMMARY | 2024-10-27 09:00 | XMS_ITS | Encounter Summary ---
Author Organization [employer] Address [address] [facility] [address] 7t [place] [address] Care Team Providers Care Visiting Teacher Name Role Phone Carmen Arauz NP Primary Care Provider [phone] Emerita Nash DO Primary Care Provider + [phone] Reason for Visit * Reason Onset Date Comments Med Refill 10/22/2023 Encounter Details Date Type Department Care Team (Late st Contact Info) Description 10/22/2023 Refill [facility] 230 [place], [place] [phone] Payton Mcintyre MD 230 [place], [place] [phone] Social History Tobacco Use Types Packs/Day Years [...] documented as of this encounter Care Teams Visiting Teacher Relationship Specialty Start Date End Date Carmen Arauz NP 230 [place] [address] PCP - General Family Medicine 09/16/23 10/19/24 Emerita Nash DO 230 [place] [address] PCP - General Family Medicine 10/20/24 documented as of this encounter
--- OUTSIDE RECORDS SUMMARY | 2024-10-27 09:00 | XMS_ITS | Encounter Summary ---
Author Organization [employer] Address 75 [facility] 7 [place] [address] Care Team Providers Care Manager Room Name Role Phone Carmen Arauz NP Primary Care Provider [phone] Emerita Nash DO Primary Care Provider [phone] Reason for Visit * Reason Onset Date Comments Appointment Request 2024 Encounter Details Date Type Department Care Team ([facility] st Contact Info) Description 2024 Telephone [facility] MEDICINE 230 [place], [place] [phone] Emerita Nash DO 230 [place], [place] [phone] Appointment Request Social History Tobacco Use Types [...] requesting a to r/s appt from 08/14/24. Fire Investigator advised pt that there is no appt available and told pt that she would be put on a recall for whenever there is a opening. Contact pt at [phone] documented in this encounter Plan of Treatment Not on file documented as of this encounter Visit Diagnoses Not on filedocumented in this encounter Additional Health Concerns Assessment Noted Time PHQ-9 Depression Total Score: 9 02/05/20 24 8:58 AM EDT documented as of this encounter Care Teams Manager Room Relationship Specialty Start Date End Date Carmen Arauz NP 230 [place] [address] PCP - General Family Medicine 09/16/23 10/19/24 Emerita Nash DO 230 [place] [address] PCP - General Family Medicine 10/20/24 documented as of this encounter
--- OUTSIDE RECORDS SUMMARY | 2024-10-27 09:00 | XMS_ITS | Encounter Summary ---
Author Organization [employer] Address [address] [facility] [address] 7t [place] [address] Care Team Providers Care Architecture Drafter Name Role Phone Carmen Arauz NP Primary Care Provider [phone] Emerita Nash DO Primary Care Provider + [phone] Encounter Details Date Type Department Care Team ([facility] Contact Info) Description 05/18/2024 Telephone [facility] MEDICINE 230 [place], [place] [phone] Carmen Arauz NP 230 [place], [place] [phone] Social History Tobacco Use Types Packs/Day Years [...] documented as of this encounter Care Teams Architecture Drafter Relationship Specialty Start Date End Date Carmen Arauz NP 230 [place] [address] PCP - General Family Medicine 09/16/23 10/19/24 Emerita Nash DO 230 [place] [address] PCP - General Family Medicine 10/20/24 documented as of this encounter
--- OUTSIDE RECORDS SUMMARY | 2024-10-27 09:00 | XMS_ITS | Encounter Summary ---
Author Organization [employer] Address 75 [facility] 7 [place] [address] Care Team Providers Care Steamtable Attendant Railroad Name Role Phone Emerita Nash DO Primary Care Provider [phone] Reason for Visit * Reason Onset Date Comments Appointment Request 10/22/2024 Encounter Details Date Type Department Care Team ([facility] st Contact Info) Description 10/22/2024 Telephone [facility] MEDICINE 230 [place], [place] [phone] Emerita Nash DO 230 [place], [place] [phone] Appointment Request Social History Tobacco Use Types [...] encounter Miscellaneous Notes * Telephone Encounter - Nhi Gu - 10/22/2024 11:10 AM EDT Tc from pt requesting a callback , pt inform pain management clinic is unable to see her as she doesn't want to get injected any more pt inform has a new condition she will like to talk to PCP or [place] for sooner appointment. Please return call [phone] documented in this encounter Plan of Treatment Not on file documented as of this encounter Visit Diagnoses Not on filedocumented in this encounter Additional Health Concerns Assessment Noted Time PHQ-9 Depression Total Score: 9 02/05/20 24 8:58 AM EDT documented as of this encounter Care Teams Steamtable Attendant Railroad Relationship Specialty Start Date End Date Emerita Nash DO 230 [place] [address] PCP - General Family Medicine 10/20/24 documented as of this encounter
--- OUTSIDE RECORDS SUMMARY | 2024-10-27 09:00 | XMS_ITS | Encounter Summary ---
Author Organization [employer] Address 75 [facility] 7t [place] [address] Care Team Providers Care Folding Machine Feeder Name Role Phone Carmen Arauz NP Primary Care Provider [phone] Emerita Nash DO Primary Care Provider + [phone] Reason for Visit * Reason Onset Date Comments returning phone call 08/13/2022 Encounter Details Date Type Department Care Team (Late st Contact Info) Description 08/13/2022 Telephone [facility] [address] [place] [address] Judith Parker MD [address] [place], [place] [phone] returning phone call Social History Tobacco Use [...] Task was 08/13/2022 Please contact pt at [phone] documented in this encounter Plan of Treatment Not on file documented as of this encounter Visit Diagnoses Not on filedocumented in this encounter Care Teams Folding Machine Feeder Relationship Specialty Start Date End Date Carmen Arauz NP 230 [place] [address] PCP - General Family Medicine 09/16/23 10/19/24 Emerita Nash DO [address] [place] [address] PCP - General Family Medicine 10/20/24 Alla Oliveira Cork Cutter 07/11/23 09/16/23 documented as of this encounter
--- OUTSIDE RECORDS SUMMARY | 2024-10-27 09:00 | XMS_ITS | Encounter Summary ---
Author Organization [employer] Address 75 [facility] 7 [place] [address] Care Team Providers Care Drywall Hanger Framer Name Role Phone Carmen Arauz NP Primary Care Provider [phone] Emerita Nash DO Primary Care Provider + [phone] Reason for Visit * Reason Onset Date Comments Nurse Triage 05/15/2024 Encounter Details Date Type Department Care Team ([facility] st Contact Info) Description 05/15/2024 Telephone [facility] 230 [place], [place] [phone] Carmen Arauz NP 230 [place], [place] [phone] Nurse Triage Social History Tobacco Use Types [...] to follow with patient. Patient reaced at [phone]. Protocol Used: Tinnitus (Adult) Protocol-Based Disposition: See [...] caller accepted this outcome. Contact pt at [phone] documented in this encounter Plan of Treatment Not on file documented as of this encounter Visit Diagnoses Not on filedocumented in this encounter Additional Health Concerns Assessment Noted Time PHQ-9 Depression Total Score: 9 02/05/20 8:58 AM EDT documented as of this encounter Care Teams Drywall Hanger Framer Relationship Specialty Start Date End Date Carmen Arauz NP 230 [place] [address] PCP - General Family Medicine 09/16/23 10/19/24 Emerita Nash DO 230 [place] [address] PCP - General Family Medicine 10/20/24 documented as of this encounter
--- OUTSIDE RECORDS SUMMARY | 2024-10-27 09:00 | XMS_ITS | Encounter Summary ---
Author Organization [employer] Address [address] [facility] [address] 7t [place] [address] Care Team Providers Care Certified Pharmacy Technician Name Role Phone Carmen Arauz NP Primary Care Provider [phone] Emerita Nash DO Primary Care Provider + [phone] Reason for Visit * Reason Onset Date Comments Med Refill 12/15/2023 Encounter Details Date Type Department Care Team (Late st Contact Info) Description 12/15/2023 Refill [facility] 230 [place], [place] [phone] Payton Mcintyre MD 230 [place], [place] [phone] Social History Tobacco Use Types Packs/Day Years [...] as of this encounter Care Teams Certified Pharmacy Technician Relationship Specialty Start Date End Date Carmen Arauz NP 230 [place] [address] PCP - General Family Medicine 09/16/23 10/19/24 Emerita Nash DO 230 [place] [address] PCP - General Family Medicine 10/20/24 documented as of this encounter
--- OUTSIDE RECORDS SUMMARY | 2024-10-27 09:00 | XMS_ITS | Clinical Summary ---
Author Organization [employer] Address 75 [facility] 7t [place] [address] Care Team Providers Care Inseamer Name Role Phone SaadEmerita Primary Care Provider Allergies Active Allergy Reactions [...] THEY WILL DISSOLVE THEN SWALLOW 15 tablet Active acetaminophen (Tylenol 8 Hour) 650 MG [...] affected nostril(s) 1 (one) time if needed. 2024 Discontinued( Therapy completed) Bisacodyl EC 5 MG EC tabletIndication s:Other constipation Take 5 mg by mouth with water. May repeat x 1 dose (5 mg) for daily total of 10 mg. Do not exceed 10 mg more than twice per week. Do not crush, chew, or split. 8 tablet 2024 Discontinued( Therapy completed) cyclobenzaprine (Flexeril) 10 [...] status of the Xolair. F/u with new gas treater. ER precautions discussed. Pt sgrees with the plan. Assessment & Plan (09/16/2023 11:46 AM EDT): PRD 20 mg x 5d, counseled to discuss with gas treater (appt next month) re adjusting Xolair dose vs changing to another med so that she doesn't end up using PRD that often. Patient is aware of side effects of long term care phlebotomist use of steroids. DC Zyrtec and use desloratadine Continue Singulair FU with new PCP. Assessment & Plan (01/18/2023 2:16 PM EDT): Do not miss upcoming appointment with administrative and program specialist PT1 for visit will be provided Assessment & Plan (08/30/2022 9:35 AM EDT): Continue loratadine, singular, prescription for prednisone. Left message for PA specilist for status of the Xolair. F/u with new gas treater. ER precautions discussed. Pt sgrees with the [...] Encounters Date Type Department Care Team Description 10/22/[address] [address] Emerita Nash DO Appointment Request 10/21/[address] [address] Emerita Nash DO PT1 Submitted 10/20/2024 1:15 PM EDT Office Visit [address] [address] Emerita Nash DO Routine history and physical examination of adult (Primary Dx); Encounter for immunization 10/20/2024 Travel 10/20/[address] [address] Emerita Nash DO Chart Prep 10/19/2024 2:30 PM EDT Office Visit [address] [address] Carmen Arauz NP Allergy, initial encounter (Primary Dx); Acute low back pain, unspecified back pain laterality, unspecified whether sciatica present; Hyperpigmentation of skin 10/19/2024 Travel 10/16/[address] [address] Sukhwinder Orr MA chartprep 10/12/2024 Patient Outreach [facility] [address] [place], [place] [phone] Carmen Arauz NP Pre-visit Planning (SDOH was already completed) 09/30/2024 Orders Only GENERIC EXTERNAL DATA DEPARTMENT Provider, Generic External Data 09/15/2024 Telephone [facility] [address] [place] [address] Carmen Arauz NP 09/15/2024 Refill [facility] [address] [place] [address] Carmen Arauz NP 09/15/2024 Refill [facility] [address] [place] [address] Ashwini Hogue MD 09/14/2024 11:00 AM EDT Office Visit [facility] [address] [place] [address] Joyce Birmingham MD Lumbar radiculopathy, chronic (Primary Dx); Dietary counseling; Exercise counseling; Overweight 09/14/2024 Travel 09/14/2024 Telephone [facility] [address] [place] [address] Carmen Arauz NP Appointment Request 2024 Telephone [facility] [address] [place] [address] Emerita Nash DO Appointment Request 09/10/2024 Refill [facility] [address] [place] [address] Carmen Arauz NP 09/10/2024 Refill [facility] [address] [place] [address] Carmen Arauz NP Lumbar spondylosis; Lumbar radiculopathy; Mild persistent asthma without complication 09/10/2024 Refill [facility] [address] [place] [address] Carmen Arauz NP Hyperpigmentation of skin 09/10/2024 Refill [facility] [address] [place] [address] Ashwini Hogue MD 09/07/2024 Outside Procedure [facility] [address] [place] [address] Guillermo, Irene, OD Presbyopia (Primary Dx) 09/04/2024 9:15 AM EDT Office Visit [facility] [address] [place] [address] Guillermo, Irene, OD 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) 09/03/2024 Telephone [facility] [address] [place] [address] Carmen Arauz NP Mondays Chronic Pain Group 08/26/2024 Telephone [facility] [address] [place] [address] Carmen Arauz NP Saturday Chronic Pain Group 08/21/2024 Population Health Risk Score [facility] () Department [address] [place] [phone] Provider, Population Health Generic 08/07/2024 Patient Outreach [facility] [address] [place], [place] [phone] Carmen Arauz NP Pre-visit Planning (SDOH unable to reach [facility]) 08/06/2024 Refill [facility] [address] [place] [address] Carmen Arauz NP 08/05/2024 Telephone [facility] [address] [place], [place] [phone] Carmen Arauz NP Scheduling for pain group [...] t he electric, gas, oil or water [employer] threatened to shut off services in your [...] SDOH Screening 07/07/2025 07/07/2024 Mammogram 10/07/2025 10/08/2023 Disability Screening 10/19/2025 10/19/2024 Tobacco Screening 10/20/2025 10/20/2024 Zoster Vaccines (1 [...] PM EDT) HPV High Risk Negative Negative [facility] HPV Genotype 16 Negative Negative [facility] HPV Genotype 18 Negative Negative [facility] Comment:HPV testing performe d at [facility] (CLIA#[id number]), [address] [place] [phone].Testing for HPV was performed using the Cristian PAM Proacta0system. The presence of HPV in the female [...] Provider LAB BLOOD ORDERAB LES Final Result [facility] [address] [place] [phone] * Pap Smear (09/30/2024 3:41 PM EDT) 09/30/2024 3:41 PM EDT 10/01/2024 11:22 AM EDT Narrative [facility] - 10/06/2024 10:50 AM EDT ----- ------- Name: Franchesca Chauhan ? Age/Sex: 49/F ? : 1975 Unit#: [id number] ?? Attend Dr: Lynne Connor CNM ?Re09/30/24 ?Status: DEP REF ? Location: HO.LNP ?Disch: ? ----- ------- SPEC : [id number] ? RECD: 10/01/24 ? STATUS: ??SOUT ? REQ NUM: [id number] ? KAELA: 09/30/24 ? SUBM DR: Lynne Connor CNM ? ENTERED: ??10/01/24 ?SP TYPE: Pap Smr ?OTHR DR: Carmen Arauz METAL DRESSER ? ORDERED: ??Pap Smear ? Interpretation ?? Satisfactory for evaluation. ?? Negative for intraepithelial lesion or malignancy. ? HPV High Risk: ??Negative ? HPV Genotyping 16: ??Negative ?? HPV Genotyping 18: ??Negative ?Clinical Information LMP: no menses Previous PAP test:Unknown date/findings ? Material Received ?? ThinPrep-Cervical Copies To: ?? Carmen Arauz METAL DRESSER ?? [facility] ?? [address] [facility] ?? [place] [address] ?? [phone] ?? Lynne Connor CNM ?? [facility] ?? [address] [facility], 3rd Floor ?? [place] [address] ?? [phone] ----- ------- Signed (signature on file) JENNIFER Shaw [facility] 10/06/24 1050 ? ----- ------- ? END OF REPORT ? us Generic External Data Provider LAB CYTOLOGY ORDE CEM Final Result [facility] [address] [place] [address] [phone] * BI Mammogram Screening Tomosynthesis Bilateral (10/08/2023 10:40 AM EDT) Anatomical Region Laterality Modality Breast Bilateral Mammography 10/08/2023 10:4 0 AM EDT Narrative 11/04/2023 11:24 AM EDT ? [facility] [place] ? [address] ?[place] [address] ? Mammography Report ? Signed ? Patient: Tien,Franchesca ?MR#: [id number] ?? 88 ? : 1975 ?Acct:[id number] ? Age/Sex: 48 / F ?ADM Date: 04/30/24 ? Loc: HO.MAMMO ? Attending Dr: Carmen Arauz METAL DRESSER ? Ordering Physician: Carmen Arauz METAL DRESSER ?Results: 1Negati ?? ve ? Date of Service: 10/08/23 ?Follow Up: 1 Year From Orig ?? inal Mammogram ? Procedure(s): MM tomosynthesis screening BI ?? Accession Number(s): [id number] ? cc: Carmen Arauz METAL DRESSER ? EXAMINATION: ?? MM SCREENING DIGITAL BREAST [...] by Kusum Chester MD in OV> ? 05/27/24 1120 ? DD/ 1040 ? TD/TT: ? Top Taper Machine: ? Procedure Note Donotuseinterpreter, Image - 11/04/2023 [place] [facility] [address] [place] [address] Mammography Report Signed Patient: Franchesca ChauhanMR#: [id number] 87 : 1975Acct:[id number] Age/Sex: 48 / FADM Date: 10/08/23 Loc: HO.MAMMO Attending Dr: Carmen Arauz METAL DRESSER Ordering Physician: Carmen Arauz NPResults: 1Negati ve Date of Service: 10/08/23Follow Up: 1 Year From Orig inal Mammogram Procedure(s): MM tomosynthesis screening BI Accession Number(s): [id number] cc: Carmen Arauz METAL DRESSER EXAMINATION: MM SCREENING DIGITAL BREAST TOMOSYNTHESIS, BILATERAL [...] in OV> 11/04/23 1120 DD/ 1040 TD/TT: Top Taper Machine: us Carmen Arauz METAL DRESSER IMG BI PROCEDURES Final Result * Hepatitis C Antibody Reflex (01/31/2023 8:50 AM EDT) Hepatitis C Antibody Nonreactive Nonreactive [facility] Comment:Antibodies to HCV no t detected; does not exclude early acuteHCV infection. 01/31/2023 8:50 AM EDT 01/31/2023 11:11 AM EDT us Judith Sibley MD LAB BLOOD ORDERABLES Final Result [facility] [address] [place] [phone] * HIV Ab/Ag ([facility]) (01/31/2023 8:50 AM EDT) HIV AB/AG Nonreactive Nonreactive [facility] Comment:HIV-1 p24 Ag and/or HIV-1/HIV-2 Ab not detected.A test result that is nonreactive does not exclude thepossibility of exposure to or infection with HIV-1 and/orHIV-2. Nonreactive results in this assay for individualswith prior exposure to HIV-1 and/or HIV-2 may be due toantigen and antibody levels that are below the limit ofdetection of this assay.The [employer] Winder HIV Ag/Ab Combo assay result andsupplemental assay results should be interpreted inconjunction with the patient's clinical presentation,history and other laboratory results. If the results areinconsistent with clinical evidence, additional testing issuggested to confirm the result. 01/31/2023 8:50 AM EDT 01/31/2023 11:11 AM EDT us Judith Sibley MD LAB BLOOD ORDERABLES Final Result Performing Organization Address [facility]/ZIP Co de Phone Number [facility] [address] [place] [address] [phone] * Lipid Panel, Standard (01/31/2023 8:50 AM EDT) Triglycerides 79 <150 mg/dL [facility] Comment:Desirable Triglyceri de: less than 150 mg/dLBorderline High Triglyceride 150-199 mg/dLHigh Triglyceride: 200-499 mg/dLVery High Triglyceride: greater than or equal to 5OO mg/dL Cholesterol 150 <200 mg/dL [facility] Comment:Desirable Cholestero l: less than 200 mg/dLBorderline High Cholesterol: 200-239 mg/dLHigh Cholesterol: greater than 239 mg/dL LDL Cholesterol Calculated 86 <100 mg/dL [facility] Comment:Desirable LDL: less than 100 mg/dLNear Optimal/Above Optimal LDL: 110- 129 mg/dLBorderline High LDL: 130-159 mg/dLHigh LDL: 160-189 mg/dLVery High LDL: greater than or equal to 190 mg/dL HDL Cholesterol 49 >40 mg/dL [facility] Comment:Desirable HDL: great er than 40 mg/dL Note: This HDL assay may give artificially low results in patients with liver disease. Blood Venous blood specimen / Unknown 01/31/2023 8:50 AM EDT 01/31/2023 11:11 AM EDT us Judith Sibley MD LAB BLOOD ORDERABLES Final Result Performing Organization Address City/[facility]/ZIP Co de Phone Number [facility] [address] [place] [address] [phone] from Last 3 Months or Most Recently Relevant to Health Maintenance Insurance [facility] [address] [place] [id number] Care Teams Inseamer Relationship Specialty Start Date End Date Emerita Nash DO [address] [place] [address] PCP - General Family Medicine 10/20/24
--- OUTSIDE RECORDS SUMMARY | 2024-10-27 09:00 | XMS_ITS | Encounter Summary ---
Author Organization [employer] Address 75 [facility] 7t [place] [address] Care Team Providers Care Pocket Machine Operator Name Role Phone Carmen Arauz NP Primary Care Provider [phone] Emerita Nash DO Primary Care Provider + [phone] Reason for Visit * Reason Onset Date Comments Med Refill 04/15/2024 Encounter Details Date Type Department Care Team (Late st Contact Info) Description 04/15/[address] [facility] [address] [place] [address] Judith Parker MD [address] [place], [place] [phone] Social History Tobacco Use Types Packs/Day Years [...] housing situation today? I have jayla kellie 04/08/[address] you li [...] documented as of this encounter Care Teams Pocket Machine Operator Relationship Specialty Start Date End Date Carmen Arauz NP 230 [place] [address] PCP - General Family Medicine 09/16/23 10/19/24 Emerita Nash DO [address] [place] [address] PCP - General Family Medicine 10/20/24 documented as of this encounter
--- OUTSIDE RECORDS SUMMARY | 2024-10-27 09:00 | XMS_ITS | Encounter Summary ---
Author Organization [employer] Address 75 [facility] 7 [place] [address] Care Team Providers Care Credit Associate Name Role Phone Carmen Arauz NP Primary Care Provider [phone] Emerita Nash DO Primary Care Provider [phone] Reason for Visit * Reason Onset Date Comments Nurse Triage 05/26/2024 Encounter Details Date Type Department Care Team ([facility] st Contact Info) Description 05/26/2024 Telephone [facility] [address] [place], [place] [phone] Carmen Arauz NP [address] [place], [place] [phone] Nurse Triage Social History Tobacco Use Types [...] Triage call Pt was last seen in [facility] 05/25/24. Pt has been doing everything [...] call regarding prior message. Contact pt at [phone] * Telephone Encounter - Adalid Joe - [...] as of this encounter Care Teams Credit Associate Relationship Specialty Start Date End Date Carmen Arauz NP [address] [place] [address] PCP - General Family Medicine 09/16/23 10/19/24 Emerita Nash DO 230 [place] [address] PCP - General Family Medicine 10/20/24 documented as of this encounter
--- OUTSIDE RECORDS SUMMARY | 2024-10-27 09:00 | XMS_ITS | Encounter Summary ---
Author Organization [employer] Address 75 [facility] 7t [place] [address] Care Team Providers Care Overhauler Helper Name Role Phone Carmen Arauz NP Primary Care Provider [phone] Emerita Nash DO Primary Care Provider + [phone] Reason for Visit * Reason Onset Date Comments Med Refill 05/15/2024 Encounter Details Date Type Department Care Team (Late st Contact Info) Description 05/15/2024 Refill [facility] 230 [place], [place] [phone] Judith Parker MD [address] [place], [place] [phone] Mild intermittent asthma, unspecified whether complicated Social [...] documented as of this encounter Care Teams Overhauler Helper Relationship Specialty Start Date End Date Carmen Arauz NP 230 [place] [address] PCP - General Family Medicine 09/16/23 10/19/24 Emerita Nash DO [address] [place] [address] PCP - General Family Medicine 10/20/24 documented as of this encounter
--- OUTSIDE RECORDS SUMMARY | 2024-10-27 09:00 | XMS_ITS | Encounter Summary ---
Author Organization [employer] Address 75 [facility] 7 [place] [address] Care Team Providers Care Gang Pusher Name Role Phone Carmen Arauz NP Primary Care Provider [phone] Emerita Nash DO Primary Care Provider + [phone] Reason for Visit * Reason Onset Date Comments Med Refill 09/10/2024 Encounter Details Date Type Department Care Team (Late st Contact Info) Description 09/10/2024 Refill [facility] [address] [place] [address] Carmen Arauz NP [address] [place], [place] [phone] Hyperpigmentation of skin Social History Tobacco Use [...] documented as of this encounter Care Teams Gang Pusher Relationship Specialty Start Date End Date Carmen Arauz NP [address] [place] [address] PCP - General Family Medicine 09/16/23 10/19/24 Emerita Nash DO [address] [place] [address] PCP - General Family Medicine 10/20/24 documented as of this encounter
--- OUTSIDE RECORDS SUMMARY | 2024-10-27 09:00 | XMS_ITS | Encounter Summary ---
Author Organization [employer] Address 75 [facility] 7t [place] [address] Care Team Providers Care Manager Linux Name Role Phone Carmen Arauz NP Primary Care Provider [phone] Emerita Nash DO Primary Care Provider + [phone] Encounter Details Date Type Department Care Team ([facility] Contact Info) Description 09/03/2022 Telephone [facility] [address] [place] [address] Judith Parker MD [address] [place] [address] Social History Tobacco Use Types Packs/Day Years [...] on filedocumented in this encounter Care Teams Manager Linux Relationship Specialty Start Date End Date Carmen Arauz NP [address] [place] [address] PCP - General Family Medicine 09/16/23 10/19/24 Emerita Nash DO [address] [place] [address] PCP - General Family Medicine 10/20/24 Alla Oliveira Skin Installer 07/11/23 09/16/23 documented as of this encounter
--- OUTSIDE RECORDS SUMMARY | 2024-10-27 09:00 | XMS_ITS | Encounter Summary ---
Author Organization [employer] Address 75 [facility] 7t [place] [address] Care Team Providers Care Spirits Model Name Role Phone Carmen Arauz NP Primary Care Provider [phone] Emerita Nash DO Primary Care Provider + [phone] Reason for Visit * Reason Onset Date Comments triage 08/16/2022 Encounter Details Date Type Department Care Team ([facility] st Contact Info) Description 08/16/2022 Telephone [facility] [address] [place], [place] [phone] Judith Parker MD 230 [place], [place] [phone] triage Social History Tobacco Use Types Packs/Day [...] on filedocumented in this encounter Care Teams Spirits Model Relationship Specialty Start Date End Date Carmen Arauz NP 230 [place] [address] PCP - General Family Medicine 09/16/23 10/19/24 Emerita Nash DO [address] [place] [address] PCP - General Family Medicine 10/20/24 Alla Oliveira Yard Supervisor Cotton Gin 07/11/23 09/16/23 documented as of this encounter
--- OUTSIDE RECORDS SUMMARY | 2024-10-27 09:00 | XMS_ITS | Encounter Summary ---
Author Organization [employer] Address 75 [facility] 7t [place] [address] Care Team Providers Care Cooker Helper Name Role Phone Carmen Arauz NP Primary Care Provider [phone] Emerita Nash DO Primary Care Provider + [phone] Reason for Visit * Reason Onset Date Comments Med Refill 02/18/2024 Encounter Details Date Type Department Care Team (Late st Contact Info) Description 02/18/2024 Refill [facility] [address] [place] [address] Payton Mcintyre MD [address] [place], [place] [phone] Social History Tobacco Use Types Packs/Day Years [...] documented as of this encounter Care Teams Cooker Helper Relationship Specialty Start Date End Date Carmen Arauz NP [address] [place] [address] PCP - General Family Medicine 09/16/23 10/19/24 Emerita Nash DO [address] [place] [address] PCP - General Family Medicine 10/20/24 documented as of this encounter
--- OUTSIDE RECORDS SUMMARY | 2024-10-27 09:00 | XMS_ITS | Encounter Summary ---
Author Organization [employer] Address [address] [place] [address] Care Team Providers Care Special Services Supervisor Name Role Phone Carmen Arauz NP Primary Care Provider [phone] Emerita Nash DO Primary Care Provider + [phone] Reason for Visit * Reason Onset Date Comments Med Refill 06/22/2024 Encounter Details Date Type Department Care Team (Late st Contact Info) Description 06/22/2024 Refill [facility] [address] [place] [address] Ashwini Hogue MD [address] [place] [address] Social History Tobacco Use Types Packs/Day Years [...] documented as of this encounter Care Teams Special Services Supervisor Relationship Specialty Start Date End Date Carmen Arauz NP [address] [place] [address] PCP - General Family Medicine 09/16/23 10/19/24 Emerita Nash DO [address] [place] [address] PCP - General Family Medicine 10/20/24 documented as of this encounter
--- OUTSIDE RECORDS SUMMARY | 2024-10-27 09:00 | XMS_ITS | Encounter Summary ---
Author Organization [employer] Address [address] [facility] 7t [place] [address] Care Team Providers Care Well Drill Operator Helper Cable Tool Name Role Phone Carmen Arauz NP Primary Care Provider [phone] Emerita Nash DO Primary Care Provider + [phone] Reason for Visit * Reason Onset Date Comments Med Refill 04/15/2024 Encounter Details Date Type Department Care Team (Late st Contact Info) Description 04/15/2024 Refill [facility] [address] [place] [address] Carmen Arauz NP [address] [place], [place] [phone] Lumbar spondylosis; Lumbar radiculopathy Social History Tobacco [...] documented as of this encounter Care Teams Well Drill Operator Helper Cable Tool Relationship Specialty Start Date End Date Carmen Arauz NP [address] [place] [address] PCP - General Family Medicine 09/16/23 10/19/24 Emerita Nash DO [address] [place] [address] PCP - General Family Medicine 10/20/24 documented as of this encounter
--- OUTSIDE RECORDS SUMMARY | 2024-10-27 09:00 | XMS_ITS | Encounter Summary ---
Author Organization [employer] Address [address] [place] [address] Care Team Providers Care Electrical Engineering Intern Name Role Phone Carmen Arauz NP Primary Care Provider [phone] Emerita Nash DO Primary Care Provider + [phone] Reason for Visit * Reason Onset Date Comments Med Refill 11/25/2023 Encounter Details Date Type Department Care Team (Late st Contact Info) Description 11/25/2023 Refill [facility] [address] [place], [place] [phone] Payton Mcintyre MD [address] [place], [place] [phone] Social History Tobacco Use Types Packs/Day Years [...] documented as of this encounter Care Teams Electrical Engineering Intern Relationship Specialty Start Date End Date Carmen Arauz NP [address] [place] [address] PCP - General Family Medicine 09/16/23 10/19/24 Emerita Nash DO [address] [place] [address] PCP - General Family Medicine 10/20/24 documented as of this encounter
[2024-10-29 16:08] LABS: Anti Nuclear Antibody Screen NEGATIVE (NEGATIVE)
== END 2024-10-27 08:43 | disposition home or self-care (01) ==
LOC: HO.HHCL 08:42
PROVIDERS: Visit Provider Nurse Practitioner Family
DX: M54.50 Low back pain, unspecified (principal); L81.9 Disorder of pigmentation, unspecified
CPT/HCPCS: 36415; 86038

== ENCOUNTER 2024-11-04 12:41 | Outpatient (REF) | payer MEDICAID, SELFPAY ==
--- OUTSIDE RECORDS SUMMARY | 2024-11-04 13:22 | XMS_ITS | Encounter Summary ---
Author Organization [employer] Address [address] [place] [address] Care Team Providers Care Carriage Dogger Name Role Phone Carmen Arauz NP Primary Care Provider [phone] Emerita Nash DO Primary Care Provider + [phone] Reason for Visit * Reason Onset Date Comments Med Refill 12/15/2023 Encounter Details Date Type Department Care Team (Late st Contact Info) Description 12/15/2023 Refill [facility] [address] [place], [place] [phone] Payton Mcintyre MD [address] [place], [place] [phone] Social History Tobacco Use Types Packs/Day Years [...] documented as of this encounter Care Teams Carriage Dogger Relationship Specialty Start Date End Date Carmen Arauz NP [address] [place] [address] PCP - General Family Medicine 09/16/23 10/19/24 Emerita Nash DO [address] [place] [address] PCP - General Family Medicine 10/20/24 documented as of this encounter
[2024-11-04 16:27] LABS: Hematocrit 44.4 % (37.0-47.0); Hemoglobin 14.5 g/dl (12.0-16.0); Mean Corpuscular HGB Conc 32.7 g/dl (31.0-35.0); Mean Corpuscular Hemoglobin 29.4 pg (27.0-33.0); Mean Corpuscular Volume 89.9 fL (80.0-98.0); Mean Platelet Volume 12.3 fL (9.4-12.3); Platelet Count 203 X10*3/uL (160-400); Red Blood Count 4.94 X10*6/uL (4.20-5.50); Red Cell Distribution Width 13.8 % (11.0-16.0); White Blood Count 9.1 X10*3/uL (4.8-10.8)
[2024-11-04 16:38] LABS: Estimated Average Glucose 100 mg/dL; Hemoglobin A1C 120.8339 umol/L; Hemoglobin A1c % 5.1 % (<6.0); Total Hemoglobin (HGBA1C) 3786.6181 umol/L
[2024-11-04 16:43] LABS: Alanine Aminotransferase 15 U/L (0-31); Albumin Level 4.3 g/dL (3.5-5.0); Alkaline Phosphatase 74 U/L (39-117); Anion Gap 12 (12-20); Aspartate Amino Transferase 26 U/L (5-31); Bilirubin Direct 0.2 mg/dL (0.0-0.5); Bilirubin Total 0.4 mg/dL (0.0-1.0); Blood Urea Nitrogen 13 mg/dL (9-16); C Reactive Protein 0.26 mg/dL (< or = 0.50); Calcium 9.4 mg/dL (8.4-10.2); Carbon Dioxide 29 mmol/L (22-29); Chloride 106 mmol/L (96-108); Cholesterol 164 mg/dL (<200); Estimated Glomerular Filt Rate > 60; Glucose Random 72 mg/dL (60-115); HDL Cholesterol 54 mg/dL (>40); LDL Cholesterol Calculated 95 mg/dL (<100); Potassium 4.3 mmol/L (3.3-5.1); Sodium 143 mmol/L (135-145); Triglycerides 76 mg/dL (<150)
[2024-11-04 17:03] LABS: Free T4 (Free Thyroxine) 1.14 ng/dL (0.71-1.85); Thyroid Stimulating Hormone 0.38 uIU/mL (0.32-4.0); Vitamin D 25-OH Total 46.3 ng/mL (>30)
[2024-11-04 17:07] LABS: Erythrocyte Sedimentation Rate 7 MM/HR (0-20)
[2024-11-04 17:27] LABS: Rheumatoid Factor < 13.0 IU/mL (<15.0)
[2024-11-05 03:58] LABS: Lyme Abs Screen <0.90 index
[2024-11-05 08:11] LABS: HBS Num1 19.49 mIU/mL (0-7.99); HBc Num1 0.08 S/CO (0.00-0.79); HBsAGNum1 0.31 S/CO (0.00-0.99); HIV AB/AG Nonreactive (Nonreactive); HIV Num 1 0.06 S/CO (0.00-0.99); Hepatitis B Core Antibody Nonreactive (Nonreactive); Hepatitis B Surface Antigen Negative (Negative); ~HepC Num1 0.12 S/CO (0.00-0.79); ~Hepatitis B Surface Antibody REACTIVE (Nonreactive); ~Hepatitis C Antibody Nonreactive (Nonreactive)
[2024-11-06 08:34] LABS: Hepatitis A Antibody IgG Nonreactive (Nonreactive); ~Hepatitis A Antibody IgG 0.43 S/CO (0.00-0.99)
[2024-11-06 11:04] LABS: RPR Rapid Plasma Reagin NON-REACTIVE (NON-REACTIVE)
[2024-11-06 12:04] LABS: Anti Nuclear Antibody Screen NEGATIVE (NEGATIVE)
== END 2024-11-04 12:42 | disposition home or self-care (01) ==
LOC: HO.HHCL 12:41
PROVIDERS: Visit Provider Family Medicine
DX: Z00.00 Encounter for general adult medical examination without abnormal findings (principal); Z23 Encounter for immunization; M54.42 Lumbago with sciatica, left side; M54.41 Lumbago with sciatica, right side; G89.29 Other chronic pain
CPT/HCPCS: 36415; 80048; 80061; 80076; 82306; 83036; 84439; 84443; 85027; 85652; 86038; 86140; 86431; 86592; 86617; 86618; 86704; 86706; 86708; 86803; 87340; 87389

== ENCOUNTER 2024-11-10 11:26 | Outpatient (AMB) | payer MEDICAID, SELFPAY ==
--- NOTE | 2024-11-10 11:32 | A.OFFVIS_ITS ---
Intake Visit Reasons: Left knee pain and giving way Intake Note: Franchseca is a 49 year old female who presents with complaints of progressively worsening left knee pain and giving way. The patient did undergo right knee arthroscopic surgery on 03/20/2024. She reports minimal discomfort in her right knee. She describes her left knee pain as sharp in nature. Most of the pain is along the medial aspect of her knee. Her symptoms have gotten worse over the last year in spite of continued non operative treatments. She has failed the last 6 weeks of conservative treatment which has included a home exercise program, physical therapy exercises, Tylenol and anti-inflammatory medicines. She states that her left knee will give out several times per day. She has had both cortisone and Euflexxa injections which gave her minimal relief. Allergies Penicillins [PENICILLINS] Allergy (Unknown, Verified 11/10/24 11:44) HIVES Medication List - Last Reconciled 11/10/24 by Ho Chahal MD acetaminophen ER 650 mg PO Q12H albuterol sulfate 90 mcg/actuation 2 puffs inhalation Q6H PRN albuterol sulfate mg inhalation Q4H PRN budesonide-formoterol 160-4.5 mcg/actuation (Symbicort) 2 puffs inhalation BID epinephrine IM DIRECTED PRN famotidine 40 mg PO QNOON PRN loratadine (Allergy Relief (loratadine)) 10 mg PO DAILY PRN montelukast (Singulair) 10 mg PO BEDTIME omalizumab (Xolair) 300 mg subcut Q4W ondansetron 4 mg PO Q6H pantoprazole (Protonix) 40 mg PO BID 30 days polyethylene glycol 3350 (Miralax) 17 grams PO .qhs 30 days sucralfate (Carafate) 2 grams (2 x 1 gram) PO .q noon PFSH Medical History Back pain GERD (gastroesophageal reflux disease) Depression Asthma Bilateral knee pain Lumbar back pain with radiculopathy affecting right lower extremity Chronic urticaria Surgical History History of esophagogastroduodenoscopy (EGD) H/O colonoscopy S/P right knee arthroscopy (03/20/24) H/O tubal ligation Hx of hand surgery (~2013) Family History Father Throat cancer Family/Other Breast cancer Social History Are you a primary coronary care unit nurse to a significant other at home: No Do you presently have visiting nurse or other home services: No Alcohol intake: never Patient Tobacco Use Status: Current everyday Tobacco user Tobacco use type: Cigarette Cigarette Packs Per Day: 1.0 Cigarettes Per Day: 6 Substance Use Type: Marijuana Current occupational status: unemployed Current occupation: rt handed Female Reproductive History Menstrual Age of Menarche: 15 Physical Exam Const Other: Well-nourished well-developed very friendly female awake alert and oriented x3 in no acute distress Extrem Other: Bilateral lower extremity examination shows good capillary refill, no skin lesions noted, normal sensation light touch Left knee examination shows a minimal effusion, minimal crepitus with range of motion, tenderness along her medial, positive, no instability Results Reviewed Results Reviewed: Standing full weight-bearing x-rays of the patient's left knee taken previously show mild diffuse joint space narrowing, no acute bony abnormalities Assessment & Plan Assessment & Plan (1) Tear of medial meniscus of left knee: Code(s): S83.242A - Other tear of medial meniscus, current injury, left knee, initial encounter Category: Medical Plan Ms. Chauhan presents with progressively worsening left knee pain and mechanical symptoms most likely due to a medial meniscus tear. Thus, I will send the patient for an MRI of her left knee for further evaluation. I will see her back once the MRI is completed to discuss the findings and treatment options. Feel free to call me at any time should questions regarding her orthopedic management arise. I spent 22 minutes in reviewing the patient's records and imaging studies, seeing the patient and documenting in the medical record. Orders: Orders MR knee LT wo con Today S83.242A - Other tear of medial meniscus, current injury, left knee, initial encounter Coding Level of Care Code Est Pt Level 3 (53379) Complex EM visit Add On G2211 Diagnoses Tear of medial meniscus of left knee S83.242A
--- OUTSIDE RECORDS SUMMARY | 2024-11-10 13:08 | XMS_ITS | Clinical Summary ---
Author Organization [facility] Address [address] [place] [phone] Phone Care Team Providers Care Estimator Jewelry Name Role Phone Physician, Pcp Unknown Primary [...] topic Insurance MEDICAID - [place] Care Teams Estimator Jewelry Relationship Specialty Start Date End Date Physician, Pcp Unknown PCP - General 06/01/24
== END 2024-11-10 12:03 | disposition home or self-care (01) ==
LOC: HO.HOS 11:31
PROVIDERS: PCP Nurse Practitioner Family; Visit Provider Orthopaedic Surgery
DX: S83.242A Other tear of medial meniscus, current injury, left knee, initial encounter (principal)
CPT/HCPCS: 99213

== ENCOUNTER → 2024-11-10 11:26 | Outpatient (BNVA) | payer MEDICAID, SELFPAY | PROVIDERS: PCP Nurse Practitioner Family; Visit Provider Orthopaedic Surgery | DX: S83.242D Other tear of medial meniscus, current injury, left knee, subsequent encounter (principal) | CPT/HCPCS: 99212 ==

== ENCOUNTER 2024-11-20 07:49 | Outpatient (AMB) | payer MEDICAID, SELFPAY ==
--- OUTSIDE RECORDS SUMMARY | 2024-11-20 07:51 | XMS_ITS | Encounter Summary ---
Author Organization [employer] Address [address] [place] [address] Care Team Providers Care Middle Stitcher Name Role Phone Carmen Arauz NP Primary Care Provider [phone] Emerita Nash DO Primary Care Provider [phone] Reason for Visit * Reason Onset Date Comments Med Refill 12/15/2023 Encounter Details Date Type Department Care Team (Late st Contact Info) Description 12/15/2023 Refill [facility] [address] [place], [place] [phone] Payton Mcintyre MD [address] [place], [place] [phone] Social History Tobacco Use Types Packs/Day Years [...] documented as of this encounter Care Teams Middle Stitcher Relationship Specialty Start Date End Date Cramen Arauz NP [address] [place] [address] PCP - General Family Medicine 09/16/23 10/19/24 Emerita Nash DO [address] [place] [address] PCP - General Family Medicine 10/20/24 documented as of this encounter
--- NOTE | 2024-11-20 07:54 | A.OFFVIS_ITS ---
Intake Visit Reasons: Tel-Right knee pain Intake Note: Ms. Chauhan is a 49-year-old female who presents with complaints of progressively worsening right knee pain. The patient did undergo right knee arthroscopic surgery on 03/20/2024. She got temporary relief from that procedure. She has had cortisone injections in the past which gave her minimal relief. She has also had a series of Euflexxa injections given into her right knee. The last Euflexxa injection was given on 12/04/2023. She has failed the last 3 months of conservative treatment which has included a home exercise program, physical therapy exercises, Tylenol and anti-inflammatory medicines. She wishes to hold off on further surgery if at all possible. She states that her right knee pain is now interfering with her activities of daily living and her ability to sleep well through the night. Allergies Penicillins [PENICILLINS] Allergy (Unknown, Verified 11/10/24 11:44) HIVES Medication List - Last Reconciled 11/20/24 by Ho Chahal MD acetaminophen ER 650 mg PO Q12H albuterol sulfate 90 mcg/actuation 2 puffs inhalation Q6H PRN albuterol sulfate mg inhalation Q4H PRN budesonide-formoterol 160-4.5 mcg/actuation (Symbicort) 2 puffs inhalation BID epinephrine IM DIRECTED PRN famotidine 40 mg PO QNOON PRN loratadine (Allergy Relief (loratadine)) 10 mg PO DAILY PRN montelukast (Singulair) 10 mg PO BEDTIME omalizumab (Xolair) 300 mg subcut Q4W ondansetron 4 mg PO Q6H pantoprazole (Protonix) 40 mg PO BID 30 days polyethylene glycol 3350 (Miralax) 17 grams PO .qhs 30 days sucralfate (Carafate) 2 grams (2 x 1 gram) PO .q noon PFSH Medical History Back pain GERD (gastroesophageal reflux disease) Depression Asthma Bilateral knee pain Lumbar back pain with radiculopathy affecting right lower extremity Chronic urticaria Surgical History History of esophagogastroduodenoscopy (EGD) H/O colonoscopy S/P right knee arthroscopy (03/20/24) H/O tubal ligation Hx of hand surgery (~2013) Family History Father Throat cancer Family/Other Breast cancer Social History Are you a primary plant health care technician to a significant other at home: No Do you presently have visiting nurse or other home services: No Alcohol intake: never Patient Tobacco Use Status: Current everyday Tobacco user Tobacco use type: Cigarette Cigarette Packs Per Day: 1.0 Cigarettes Per Day: 6 Substance Use Type: Marijuana Current occupational status: unemployed Current occupation: rt handed Female Reproductive History Menstrual Age of Menarche: 15 Physical Exam Const Other: No exam was completed today because of telehealth appointment Telehealth Telehealth Telehealth Platform: Telephone Location of provider rendering services: practice address Location of patient: address on file Patient Identification confirmed using: Name, : Yes Telehealth method: voice only Patient verbally consented to treatment: Yes Patient verbally consented to billing insurance company: Yes Patient informed of any privacy concerns related to visit: Yes Minutes spent on Phone/Video with Pt.: 15 Results Reviewed Results Reviewed: X-rays of the patient's right knee taken previously show joint space narrowing, subchondral sclerosis, no acute bony abnormalities Assessment & Plan Assessment & Plan (1) Osteoarthritis of right knee: Code(s): M17.11 - Unilateral primary osteoarthritis, right knee Category: Medical Plan Ms. Chauhan presents with right knee pain due to osteoarthritis. I had a lengthy discussion with the patient regarding the treatment options. The patient wishes to hold off on further surgery if at all possible. I agree with this plan. I will see whether or not the patient's insurance company will cover a series of 3 Euflexxa viscosupplementation injections. I will see her back once the injections are available. Feel free to call me at any time should questions regarding her orthopedic management arise. Coding Level of Care Code Tele Est Pt Level 2 (21783) Complex EM visit Add On G2211 Diagnoses Osteoarthritis of right knee M17.11
== END 2024-11-20 07:53 | disposition home or self-care (01) ==
LOC: HO.HOS 07:49
PROVIDERS: PCP Nurse Practitioner Family; Visit Provider Orthopaedic Surgery
DX: M17.11 Unilateral primary osteoarthritis, right knee (principal)
CPT/HCPCS: 99213

== ENCOUNTER → 2024-11-20 07:49 | Outpatient (BNVA) | payer MEDICAID, SELFPAY | PROVIDERS: PCP Nurse Practitioner Family; Visit Provider Orthopaedic Surgery ==

== ENCOUNTER → 2024-11-30 09:46 | Outpatient (BNV) | payer MEDICAID, SELFPAY | PROVIDERS: PCP Family Medicine; Visit Provider Radiology Diagnostic Radiology | DX: S83.242A Other tear of medial meniscus, current injury, left knee, initial encounter (principal) | CPT/HCPCS: 73721 ==

== ENCOUNTER 2024-11-30 09:51 | Outpatient (REF) | payer MEDICAID, SELFPAY ==
--- NOTE | ~2024-11-30 | MR_ITS ---
EXAMINATION: MR KNEE WITHOUT CONTRAST, LEFT CLINICAL INFORMATION: Medial meniscal tear, injury COMPARISON: None available. TECHNIQUE: MRI of the knee without contrast was performed using routine sequences on a high-field scanner. FINDINGS: Menisci: Lateral Meniscus: There is a horizontal tear extending to the femoral surface, near the intercondylar margin, involving junction of posterior body and posterior horn of the lateral meniscus. Medial Meniscus: Oblique intermediate signal in the peripheral meniscus extends to the tibial surface in the posterior horn. There is mild extrusion of the body. ACL/PCL: ACL is intact. PCL is intact. Extensor mechanism: There is a physiologic volume of joint fluid. There is a small amount of focal edema in the superior lateral fat pad of Hoffa. The Insall-Salvati ratio measured 1.6 consistent with patella mimi. The depth of the trochlear groove is 3.6 mm which is borderline shallow. There is no lateralization of the tibial tubercle. MCL/LCL: MCL is intact. LCL complex is intact. Articular cartilage: Patellofemoral Compartment: Diffuse irregular shallow partial thickness cartilage loss is present across lateral facet of patella involving less than half of the cartilage thickness. Trochlear cartilage is intact. Lateral Compartment: There is mild thinning of tibial cartilage on the left side of the joint. Femoral cartilage is intact. Medial Compartment: Medial compartment articular cartilage is intact. Bones/Marrow: There are no marrow replacing lesions. Small marginal osteophytes are present along the medial joint line. Soft tissues: There is no mass, fluid collection, muscle edema, or fatty infiltration. MR/MR knee LT wo con IMPRESSION: There is a horizontal tear involving lateral meniscus Junction of posterior body posterior horn extending to the femoral surface. There is a peripheral horizontal tear of the posterior horn medial meniscus extending to the tibial surface. 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 Mild osteoarthritis: Small marginal osteophytes are present along the medial joint line. There is grade II chondromalacia involving the notch side of the lateral tibial plateau. Medial meniscal body is mildly extruded from the joint line. Electronically signed by: Sean Burgess MD 11/30/2024 10:50 AM EDT
--- OUTSIDE RECORDS SUMMARY | 2024-11-30 10:48 | XMS_ITS | Encounter Summary ---
Author Organization [employer] Address [address] [place] [address] Care Team Providers Care Supply Chain Generalist Name Role Phone Carmen Arauz NP Primary Care Provider [phone] Emerita Nash DO Primary Care Provider + [phone] Reason for Visit * Reason Onset Date Comments Med Refill 12/15/2023 Encounter Details Date Type Department Care Team (Late st Contact Info) Description 12/15/2023 Refill [facility] [address] [place], [place] [phone] Payton Mcintyre MD [address] [place], [place] [phone] Social History Tobacco Use Types Packs/Day Years [...] documented as of this encounter Care Teams Supply Chain Generalist Relationship Specialty Start Date End Date Carmen Arauz NP [address] [place] [address] PCP - General Family Medicine 09/16/23 10/19/24 Emerita Nash DO [address] [place] [address] PCP - General Family Medicine 10/20/24 documented as of this encounter
== END 2024-11-30 09:52 | disposition home or self-care (01) ==
LOC: HO.MRI 09:51
PROVIDERS: PCP Family Medicine; Visit Provider Orthopaedic Surgery
DX: S83.242A Other tear of medial meniscus, current injury, left knee, initial encounter (principal)
CPT/HCPCS: 73721

== ENCOUNTER 2024-12-01 12:46 | Outpatient (AMB) | payer MEDICAID, SELFPAY ==
--- NOTE | 2024-12-01 12:53 | A.OFFVIS_ITS ---
Intake Visit Reasons: Bilateral knee pains Intake Note: Ms. Chauhan presents with bilateral knee pains. She describes her pains as sharp in nature. She has had cortisone injections in the past which gave her minimal relief. She has failed the last 3 months of conservative treatment which have included physical therapy exercises, a home exercise program, Tylenol and anti-inflammatory medicines. She denies any locking or giving way. At this point her bilateral knee pains are interfering with her activities of daily living and her ability to sleep well through the night. Allergies Penicillins (PENICILLINS) Allergy (Unknown, Verified 11/10/24 11:44) HIVES Medication List - Last Reconciled 12/01/24 by Ho Chahal MD acetaminophen ER 650 mg PO Q12H albuterol sulfate 90 mcg/actuation 2 puffs inhalation Q6H PRN albuterol sulfate mg inhalation Q4H PRN budesonide-formoterol 160-4.5 mcg/actuation (Symbicort) 2 puffs inhalation BID epinephrine IM DIRECTED PRN famotidine 40 mg PO QNOON PRN loratadine (Allergy Relief (loratadine)) 10 mg PO DAILY PRN montelukast (Singulair) 10 mg PO BEDTIME omalizumab (Xolair) 300 mg subcut Q4W ondansetron 4 mg PO Q6H pantoprazole (Protonix) 40 mg PO BID 30 days polyethylene glycol 3350 (Miralax) 17 grams PO .qhs 30 days sucralfate (Carafate) 2 grams (2 x 1 gram) PO .q noon PFSH Medical History Back pain GERD (gastroesophageal reflux disease) Depression Asthma Bilateral knee pain Lumbar back pain with radiculopathy affecting right lower extremity Chronic urticaria Surgical History History of esophagogastroduodenoscopy (EGD) H/O colonoscopy S/P right knee arthroscopy (03/20/24) H/O tubal ligation Hx of hand surgery (~2013) Family History Father Throat cancer Family/Other Breast cancer Social History Are you a primary career development coordinator/teacher to a significant other at home: No Do you presently have visiting nurse or other home services: No Alcohol intake: never Patient Tobacco Use Status: Current everyday Tobacco user Tobacco use type: Cigarette Cigarette Packs Per Day: 1.0 Cigarettes Per Day: 6 Substance Use Type: Marijuana Current occupational status: unemployed Current occupation: rt handed Female Reproductive History Menstrual Age of Menarche: 15 Physical Exam Const Other: Well-nourished well-developed very friendly female awake alert and oriented x3 in no acute distress Extrem Other: Bilateral lower extremity examination shows good capillary refill, no skin lesions noted, normal sensation light touch Bilateral knee examination shows minimal effusions, palpable crepitus with range of motion, no instability Results Reviewed Results Reviewed: Standing full weight-bearing x-rays of the patient's bilateral knee show joint space narrowing, subchondral sclerosis, no acute bony abnormalities Assessment & Plan Assessment & Plan (1) Osteoarthritis of right knee: Code(s): M17.11 - Unilateral primary osteoarthritis, right knee Category: Medical (2) Osteoarthritis of left knee: Code(s): M17.12 - Unilateral primary osteoarthritis, left knee Category: Medical (3) Osteoarthritis of knees, bilateral: Code(s): M17.0 - Bilateral primary osteoarthritis of knee Category: Medical Plan Ms. Chauhan presents with bilateral knee pains due to osteoarthritis. I will see whether or not the patient's insurance company will cover a series of Euflexxa injections for both of her knees. I will see her back once the injections are available. Feel free to call me at any time should questions regarding her orthopedic management arise. I spent 20 minutes in reviewing the patient's records and imaging studies, seeing the patient and documenting in the medical record. Coding Level of Care Code Est Pt Level 3 (58715) Complex EM visit Add On G2211 Diagnoses Osteoarthritis of right knee M17.11 Osteoarthritis of left knee M17.12 Osteoarthritis of knees, bilateral M17.0
--- OUTSIDE RECORDS SUMMARY | 2024-12-01 14:21 | XMS_ITS | Encounter Summary ---
Author Organization [employer] Address [address] [place] [address] Care Team Providers Care Assurance Senior Manager Insurance Name Role Phone Carmen Arauz NP Primary Care Provider [phone] Emerita Nash DO Primary Care Provider + [phone] Reason for Visit * Reason Onset Date Comments Med Refill 12/15/2023 Encounter Details Date Type Department Care Team (Late st Contact Info) Description 12/15/2023 Refill [facility] MEDICINE [address] [place], [place] [phone] Payton Mcintyre MD [address] [place], [place] [phone] Social History Tobacco Use Types Packs/Day Years [...] documented as of this encounter Care Teams Assurance Senior Manager Insurance Relationship Specialty Start Date End Date Carmen Arauz NP [address] [place] [address] PCP - General Family Medicine 09/16/23 10/19/24 Emerita Nash DO [address] [place] [address] PCP - General Family Medicine 10/20/24 documented as of this encounter
== END 2024-12-01 13:09 | disposition home or self-care (01) ==
LOC: HO.HOS 12:47
PROVIDERS: PCP Family Medicine; Visit Provider Orthopaedic Surgery
DX: M17.0 Bilateral primary osteoarthritis of knee (principal)
CPT/HCPCS: 99213

== ENCOUNTER → 2024-12-01 12:46 | Outpatient (BNVA) | payer MEDICAID, SELFPAY | PROVIDERS: PCP Family Medicine; Visit Provider Orthopaedic Surgery | DX: M17.11 Unilateral primary osteoarthritis, right knee (principal); M17.12 Unilateral primary osteoarthritis, left knee; M17.0 Bilateral primary osteoarthritis of knee | CPT/HCPCS: 99212 ==

== ENCOUNTER 2025-03-25 08:19 | Outpatient (REF) | payer MEDICAID, SELFPAY | END 2025-03-25 08:20 | disposition home or self-care (01) | LOC: HO.HOSX 08:19 | PROVIDERS: Visit Provider Physical Medicine & Rehabilitation | DX: Z13.89 Encounter for screening for other disorder (principal) ==

== ENCOUNTER 2025-05-14 08:43 | Outpatient (AMB) | payer MEDICAID, SELFPAY ==
--- NOTE | 2025-05-14 09:10 | MHC.OFFVIS ---
Vital Signs 05/14/25 09:16 Height 5 ft 5 in Weight 170 lb BMI 28.3 Intake Visit Reasons: OV- Lower back pain Intake Note: Franchesca is a 49 year old female who presents today as a new patient for her lower back pain. Patient was referred by Pain Mgmt 10/12/24, at their last visit she was recommend alternative therapies, including chiropractic manipulation, acupuncture, aqua therapy, physical therapy and SI joint injections. At today's visit she states that for the past five years she has had mid to lower back pain. Patient states that her lower back pain radiates into her bilateral hips causing discomfort when she sits for too long. She states that the pain does radiate down both legs and she has an appointment with in office for her bilateral knee pain, history of gel injections. Pain Scale- 8 Comments to Provider Patient failed diagnostic lumbar MBB and SI joint on the right injections. Declined further interventional options, interested in Physiatry evaluation. Allergies Penicillins (PENICILLINS) Allergy (Unknown, Verified 11/10/24 11:44) HIVES Medication List - Last Reconciled 05/14/25 by Lynn Vasquez MD acetaminophen ER 650 mg PO Q12H albuterol sulfate 90 mcg/actuation 2 puffs inhalation Q6H PRN albuterol sulfate mg inhalation Q4H PRN budesonide-formoterol 160-4.5 mcg/actuation (Symbicort) 2 puffs inhalation BID epinephrine IM DIRECTED PRN famotidine 40 mg PO QNOON PRN loratadine (Allergy Relief (loratadine)) 10 mg PO DAILY PRN montelukast (Singulair) 10 mg PO BEDTIME omalizumab (Xolair) 300 mg subcut Q4W ondansetron 4 mg PO Q6H pantoprazole (Protonix) 40 mg PO BID 30 days polyethylene glycol 3350 (Miralax) 17 grams PO .qhs 30 days sennosides (Senna Laxative) 17.2 mg (2 x 8.6 mg) PO BEDTIME sucralfate (Carafate) 2 grams (2 x 1 gram) PO .q noon HPI Comments Details: Chronic 5 year pain. Used to get injections in [place] without relief. She points to right SI joint, goes to both pelvis, down to knees/calves. No numbness on the leg. No foot drop. No bladder/bowel injection. Had been following with pain management, had gone through MBB and SI joint injection, per their notes, without relief per patient. Patient says zero relief even for few minutes. They recommended trial of facet injections but patient defers and hence this referral to Physiatry. Overall she finds injections very painful . Last PT for the knee last summer. No PT for the back pain. [facility] Medical History Back pain GERD (gastroesophageal reflux disease) Depression Asthma Bilateral knee pain Lumbar back pain with radiculopathy affecting right lower extremity Chronic urticaria Surgical History History of esophagogastroduodenoscopy (EGD) H/O colonoscopy S/P right knee arthroscopy (03/20/24) H/O tubal ligation Hx of hand surgery (~2013) Family History Father Throat cancer Family/Other Breast cancer Social History Are you a primary women's health care nurse practitioner to a significant other at home: No Do you presently have visiting nurse or other home services: No Alcohol intake: never Patient Tobacco Use Status: Current everyday Tobacco user Tobacco use type: Cigarette Cigarette Packs Per Day: 1.0 Cigarettes Per Day: 6 Substance Use Type: Marijuana Current occupational status: unemployed Current occupation: rt handed Female Reproductive History Menstrual Age of Menarche: 15 Review of Systems Const All systems reviewed & are unremarkable except as noted in HPI and below Physical Exam Exam Exam: Too sensitive to even light touch palpation of lower back with out of proportion tenderness over lumbar paraspinals and bilateral SI joints. Vital Signs: BMI result Body Mass Index 28.3 Results Reviewed Results Reviewed: Ordering Physician: Guillermina Montgomery Date of Service: 06/05/23 Procedure(s): MR lumbar spine wo con Accession Number(s): [id number] cc: Judith Parker MD; Guillermina Montgomery~ EXAMINATION: MR LUMBAR SPINE WITHOUT CONTRAST CLINICAL INFORMATION: Right lower extremity radiculopathy and low back pain. COMPARISON: X-ray lumbar spine dated 12/14/2015. TECHNIQUE: Multiplanar, multisequence imaging was obtained. FINDINGS: VERTEBRAL BODIES AND PARASPINAL STRUCTURES: There is very mild endplate edema and reduced intradiscal signal with a mild posterior subluxation at the L4-L5 level. The remaining discs are fairly well-hydrated. No compression fractures are identified. The paraspinal soft tissues appear normal. The imaged bony pelvis is unremarkable. CONUS MEDULLARIS AND CAUDA EQUINA: The distal cord, conus tip, and cauda equina nerve roots are normal. SPINAL LEVELS: L1-L2: Minimal annular bulge and very mild facet arthropathy without central canal stenosis or foraminal narrowing. L2-L3: Mild facet arthropathy. No significant disc pathology. No central canal stenosis or foraminal narrowing. L3-L4: Mild posterior subluxation and diffuse disc bulge with hypertrophic facet arthropathy. No central canal stenosis. Mild right foraminal narrowing. Bulging disc and facet spurring result in [id number] left foraminal encroachment. L4-L5: Reduced intradiscal signal and mild posterior subluxation with a broad-based disc bulge and moderate facet arthropathy. Very small central disc protrusion visible. No central canal stenosis. [id number] bilateral foraminal narrowing. L5-S1: Well-hydrated disc with hypertrophic facet arthrosis. No central canal stenosis or foraminal narrowing. MR/MR lumbar spine wo con IMPRESSION: [id number]-la-etrqyvxg spondylosis at the L3-L4 and L4-L5 levels. No focal disc protrusion or central canal stenosis. Uqie-ey-fzokskdq foraminal narrowing, more so at the L4-L5 level where there is a small central disc protrusion as well. I reviewed records from the following: Pain management Ortho Assessment & Plan Assessment & Plan (1) Discogenic low back pain: Code(s): M51.36 - Other intervertebral disc degeneration, lumbar region Category: Medical (2) Chronic right SI joint pain: Code(s): M53.3 - Sacrococcygeal disorders, not elsewhere classified; G89.29 - Other chronic pain Category: Medical Plan Chronic lower back pain. Previous intervention from pain management has not given any relief. But patient is willing to try physical therapy. PT referral placed. I do not think she wants any further injections in the future. Assessment and plan discussed with patient, and patient was agreeable. All questions were answered thoroughly. Follow up 3 months. Lynn Vasquez MD, EMIR Board Certified, [place] [employer] (ABPMR) Board Certified, [place] [employer] (ABEM) Orders: Orders PT Evaluation and Treatment Today G89.29 - Other chronic pain, M51.36 - Other intervertebral disc degeneration, lumbar region, M53.3 - Sacrococcygeal disorders, not elsewhere classified Coding Level of Care Code New Pt Level 4 (41600) Diagnoses Discogenic low back pain M51.36 Chronic right SI joint pain M53.3; G89.29
[2025-05-14 09:16] VITALS: BMI 28.3
== END 2025-05-14 09:53 | disposition home or self-care (01) ==
PROVIDERS: Visit Provider Physical Medicine & Rehabilitation
DX: M51.369 Other intervertebral disc degeneration, lumbar region without mention of lumbar back pain or lower extremity pain (principal); M53.3 Sacrococcygeal disorders, not elsewhere classified; G89.29 Other chronic pain
CPT/HCPCS: 99214

== ENCOUNTER → 2025-05-14 08:43 | Outpatient (BNVA) | payer MEDICAID, SELFPAY | PROVIDERS: Visit Provider Physical Medicine & Rehabilitation | DX: G89.29 Other chronic pain (principal); M51.360 Other intervertebral disc degeneration, lumbar region with discogenic back pain only; M53.3 Sacrococcygeal disorders, not elsewhere classified | CPT/HCPCS: 99212 ==